=== PATIENT | male | born 1940 | race Caucasian/White ===

== ENCOUNTER 2022-03-13 16:35 | Emergency (ER) | payer MEDICARE, BC, SELFPAY ==
[2022-03-13 16:42] VITALS: BP 151/53; PULSE 61; RESP 18; TEMP 36.3; O2SAT 99; BMI 25.0
--- NOTE | 2022-03-13 16:53 | ED_ITS ---
HPI - General Adult General Time Seen by Provider: 16:53 Date Seen: 03/13/22 Chief complaint: Unspecified Complaint, Adult Stated complaint: Needs sodium level checked Time Seen by Provider: 03/13/22 16:36 Source: patient and RN notes reviewed Mode of arrival: ambulatory Limitations: no limitations History of Present Illness HPI narrative: Patient is an 81-year-old male accompanied by his daughter for concerns of hyponatremia, decreased fluid intake due to hyponatremia, inability to do his routine straight catheterization prior to coming, fall but a week ago and now with complaint of low back pain. This patient has had a recent complex history. 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 He was in the care home recuperating and then was discharged to home. He stays with his son but his son is gone right now will be out of town this next week. Per his daughter, he had hyponatremia complicating this postoperative time frame. While he was in the care home, she describes fluid restriction. He has been complaining of weakness, intermittent dizziness, did see Dr. Modi this last week. Dr. Modi reportedly called last night saying his sodium was low again in asked him to minimize fluid intake until it could be recheck tomorrow. With him a living by himself right now, his daughter was not comfortable with this plan, not comfortable with him fluid restricting and not drinking anything. There are no new falls. She notes he had some bruising on both sides of his back after the fall. He has not had any imaging in regards to the fall. He is complaining of right low back pain. There is no neurologic features with the fall, no pain shooting in the extremities. He states his left leg is feeling good after the bypass, wound healing up on the left arm as well. No fevers or chills. He did use 1 oxycodone yesterday. He has not been using chronic narcotics. He is on Plavix and a baby aspirin daily. Related Data Home Medications Medication Instructions Recorded Confirmed amiodarone 200 mg tablet mg 03/13/22 carvedilol 12.5 mg tablet mg 03/13/22 clonidine HCl 0.1 mg tablet mg 03/13/22 clopidogrel 75 mg tablet mg 03/13/22 gabapentin 300 mg capsule mg 03/13/22 pramipexole 0.5 mg tablet mg 03/13/22 tamsulosin 0.4 mg capsule mg PO 03/13/22 Allergies Allergy/AdvReac Type Severity Reaction Status Date / Time erythromycin base Allergy Verified 03/13/22 16:50 Penicillins Allergy Verified 03/13/22 16:50 Review of Systems Status of ROS: Reports: 10 or more systems reviewed and unremarkable except as noted in History and below Exam Const: Vital Signs, click to edit/add: Vital Signs - 24 hr 03/13/22 16:42 Temperature 97.3 F L Pulse Rate [Right Pulse Oximeter] 61 Respiratory Rate 18 Blood Pressure [Ri ght Upper Arm] 151/53 H Pulse Oximetry 99 Oxygen Delivery Me thod Room Air Documenting provider has reviewed patient's vital signs: yes Common normals: no apparent distress, oriented x3, no limitations, healthy appearing and alert General appearance: cooperative, comfortable, well kempt and frail appearing Nutritional appearance: thin HENMT: Common normals: normocephalic, head/scalp atraumatic, hearing grossly normal bilaterally (Does have bilateral hearing aids), external ears normal, external nose normal, nasal mucous membranes and turbinates normal, moist oral mucous membranes, oropharynx normal, dentition normal and gingiva normal Head and scalp: normocephalic and atraumatic Nose: external nose normal and nasal mucous membranes and turbinates normal External ear: external ears normal Eye: Common normals: PERRL, EOMs intact bilaterally, conjunctivae normal and no scleral icterus Conjunctiva: conjunctiva(e) normal Pupil: PERRL Neck & C-Spine: Common normals: full ROM, no lymphadenopathy, supple, no meningeal signs, no JVD and thyroid normal Thyroid: thyroid normal Chest: Common normals: inspection of chest normal and palpation of chest normal Resp: Common normals: normal respiratory effort, no retractions, no use of accessory muscles and clear to auscultation bilaterally Auscultation: clear to auscultation bilaterally Cardio: Common normals: no JVD, regular rate, regular rhythm, S1 normal heart sound, S2 normal heart sound, no gallops, no clicks and no murmurs Rate: regular rate Rhythm: regular rhythm Heart sounds: S1 normal and S2 normal GI: Common normals: Normal to inspection, nondistended, normoactive bowel sounds present, soft to palpation, non-tender, no hepatosplenomegaly and no masses Palpation: soft and no hepatosplenomegaly Back & Pelvis: Common normals: thoracic and lumbar spine normal to inspection and no thoracic nor lumbar tenderness Other: Is tender in the muscular area in the right low back. , no midline tenderness over the lumbar spine. Has ecchymosis that are old and resolving seen bilaterally near the edge of the iliac crest bilaterally on either side. Extremity: Common normals: no calf tenderness and no pedal edema Other: His harvest in bypass wounds on his left lower extremity and left upper extremity are well healed, no evidence of any infection. Neuro: Common normals: oriented x3 Sensorium/orientation: alert Meningeal signs: no meningeal signs Psych: Appearance: well kempt Course Course Hospital Course: We will x-ray lumbar spine, obtain blood work including chemistries was sodium. Will have nursing staff attempt straight cath. Reevaluation(s) Reevaluation #1: Reviewed that the sodium was 130, this is low but not at an alarming level. We will allow him to drink some Sprite. Reviewed with them that the x-rays of his lumbar spine are showing some degenerative changes but no fracture. We are still awaiting some labs and a everything is looking okay, likely discharge to home. Nursing staff was able to do a straight cath but he only had 35 mL. Patient is not drank anything all day so this is not surprising to me. Time: 18:19 Vital Signs Vital signs: Initial Vital Signs Temperature 97.3 F L 03/13/22 16:42 Temperature Source Temporal Artery Scan 03/13/22 16:42 Pulse Rate 61 03/13/22 16:42 Respiratory Rate 18 03/13/22 16:42 Blood Pressure 151/53 H 03/13/22 16:42 Blood Pressure Mean 85 03/13/22 16:42 Blood Pressure Position Sitting 03/13/22 16:42 Pulse Oximetry 99 03/13/22 16:42 Oxygen Delivery Method 03/13/22 16:42 Vital Signs Temperature 97.3 F L 03/13/22 16:42 Pulse Rate 61 03/13/22 16:42 Respiratory Rate 18 03/13/22 16:42 Blood Pressure 151/53 H 03/13/22 16:42 Pulse Oximetry 99 03/13/22 16:42 Oxygen Delivery Method 03/13/22 16:42 Temperature 97.3 F L 03/13/22 16:42 Pulse Rate 61 03/13/22 16:42 Respiratory Rate 18 03/13/22 16:42 Blood Pressure 151/53 H 03/13/22 16:42 Pulse Oximetry 99 03/13/22 16:42 Oxygen Delivery Method 03/13/22 16:42 Medical Decision Making Lab Data Lab results reviewed: Yes I reviewed the patient's lab results Lab results narrative: Was able to see his clinic labs and his sodium on March 10 was 125, has been running in the upper 120s most recently. In February his hemoglobin has been running 11.2-11.4, thus continuing to increase at 11.7 here. His white count was 4500 and 4800 on 2 separate occasions in February. Labs: Lab Results 03/13/22 03/13/22 03/13/22 Range/Units 17:32 17:32 17:50 WBC 4.24 L (4.50-11.00) K/uL RBC 3.86 L (4.30-5.90) m/uL Hgb 11.7 L (13.5-17.5) gm/dL Hct 35.3 L (37.0-53.0) % MCV 92 (80-100) fL MCH 30 (26-34) pg MCHC 33 (32-36) gm/dL RDW Coeff of Alba 13.2 (11.5-15.5) % Plt Count 162 (140-440) K/uL Neut % (Auto) 67.5 (42.0-72.0) % Lymph % (Auto) 13.9 L (20-44) % H[place] % (Auto) 9.7 (0.0-11.0) % Eos % (Auto) 7.8 H (0.0-7.0) % Baso % (Auto) 0.9 (0.0-3.0) % Neut # (Auto) 2.90 (1.7-7.0) K/uL Lymph # (Auto) 0.60 L (0.90-2.90) K/uL H[place] # (Auto) 0.40 (0.00-0.90) K/UL Eos # (Auto) 0.30 (0.00-0.50) K/uL Baso # (Auto) 0.00 (0.00-0.30) K/uL Abs Immat Gran (auto) 0.01 (0.00-0.30) K/uL Sodium 130 L (135-149) mmol/L Potassium 4.3 (3.6-5.1) mmol/L Chloride 94 L (96-114) mmol/L Carbon Dioxide 25 (20-32) mmol/L BUN 16 (7-30) mg/dL Creatinine 1.2 (0.5-1.5) mg/dL Estimated Creat Clear 44.31 Estimated GFR 61 ml/min Glucose 120 H (60-115) mg/dL Calcium 9.2 (8.4-10.6) mg/dL Urine Color Yellow (Yellow) Urine Appearance Cloudy A (Clear) Urine pH 6.0 (5.0-8.5) Ur Specific [place] 1.015 (1.000-1.030) Urine Protein Negative (Negative) Urine Glucose (UA) Negative (Negative) Urine Ketones Negative (Negative) Urine Blood 2+ A (Negative) Urine Nitrite Negative (Negative) Urine Bilirubin Negative (Negative) Urine Urobilinogen 1.0 (0.2-1.0) Ur Leukocyte Esterase Negative (Negative) Urine RBC 10-25 A (0-2) Urine WBC 10-25 A (0-5) Ur Squamous Epith Cells Few (None-Few) Urine Bacteria Few A (None) SARS-CoV-2 (PCR) (Negative) 03/13/22 Range/Units 18:00 WBC (4.50-11.00) K/uL RBC (4.30-5.90) m/uL Hgb (13.5-17.5) gm/dL Hct (37.0-53.0) % MCV (80-100) fL MCH (26-34) pg MCHC (32-36) gm/dL RDW Coeff of Alba (11.5-15.5) % Plt Count (140-440) K/uL Neut % (Auto) (42.0-72.0) % Lymph % (Auto) (20-44) % [place] % (Auto) (0.0-11.0) % Eos % (Auto) (0.0-7.0) % Baso % (Auto) (0.0-3.0) % Neut # (Auto) (1.7-7.0) K/uL Lymph # (Auto) (0.90-2.90) K/uL [place] # (Auto) (0.00-0.90) K/UL Eos # (Auto) (0.00-0.50) K/uL Baso # (Auto) (0.00-0.30) K/uL Abs Immat Gran (auto) (0.00-0.30) K/uL Sodium (135-149) mmol/L Potassium (3.6-5.1) mmol/L Chloride (96-114) mmol/L Carbon Dioxide (20-32) mmol/L BUN (7-30) mg/dL Creatinine (0.5-1.5) mg/dL Estimated Creat Clear Estimated GFR ml/min Glucose (60-115) mg/dL Calcium (8.4-10.6) mg/dL Urine Color (Yellow) Urine Appearance (Clear) Urine pH (5.0-8.5) Ur Specific [place] (1.000-1.030) Urine Protein (Negative) Urine Glucose (UA) (Negative) Urine Ketones (Negative) Urine Blood (Negative) Urine Nitrite (Negative) Urine Bilirubin (Negative) Urine Urobilinogen (0.2-1.0) Ur Leukocyte Esterase (Negative) Urine RBC (0-2) Urine WBC (0-5) Ur Squamous Epith Cells (None-Few) Urine Bacteria (None) SARS-CoV-2 (PCR) Negative SARS-CoV-2 (Negative) Imaging Data Lumbar spine x-ray: Attestation: I have reviewed the pertinent imaging results. Radiologist's impression: Patient: ALY COUGHLIN Facility:?[facility] Patient ID:?[id number] Site Patient ID:?[id number]. Site :?[id number] Study:?XRay Spine Lumbar -03/13/2022 5:24:27 PM Ordering Physician:Juan Russo Final Report: INDICATION: Fall. Low back pain. COMPARISON: 11/24/2020. TECHNIQUE: Lumbar spine 3 views. 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 Vertebral body heights are maintained. Alignment is unchanged. No acute fracture is identified. Cholecystectomy clips. Vascular stents. Left hip arthroplasty, partially imaged. Vascular calcifications are again noted. Dictated by Herrera Johnson MD @ 03/13/2022 6:01:29 PM (Electronic Signature) Critical Care Time Critical Care Time Critical Care Time: No Discharge Plan Discharge Clinical Impression: Low back pain, Hyponatremia Patient Disposition: Home, Self-Care Condition: Stable Instructions: Hyponatremia (ED), Back Pain (ED) Additional Instructions: Can baseline take Tylenol 1000 mg 3 times a day for pain control. Do recommend follow up in clinic with your primary care provider as soon as you can this week to discuss further management and treatment goals with the hyponatremia. At this time your sodium level is back up to 130 which is higher than it has been from the most recent labs I have seen. Your primary care provider can continue to follow this. Review low back pain at follow-up visit, see if your primary care provider has any further recommendations. Activity Level: Activity as Tolerated Prescriptions: No Action clonidine HCl 0.1 mg tablet carvedilol 12.5 mg tablet amiodarone 200 mg tablet clopidogrel 75 mg tablet pramipexole 0.5 mg tablet tamsulosin 0.4 mg capsule PO gabapentin 300 mg capsule Follow Up/Referrals: Monico Modi MD [Primary Care Provider] - Stand Alone Forms: [facility] Info Instructions
--- NOTE | 2022-03-13 17:07 | CRLHL7_ITS ---
For Patients: As a result of the Cures Act, medical imaging exams and procedure reports are released immediately into your electronic medical record. You may view this report before your referring provider. If you have questions, please contact your health care provider. INDICATION: Fall. Low back pain. COMPARISON: 11/24/2020. TECHNIQUE: Lumbar spine 3 views. 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 Vertebral body heights are maintained. Alignment is unchanged. No acute fracture is identified. Cholecystectomy clips. Vascular stents. Left hip arthroplasty, partially imaged. Vascular calcifications are again noted. Dictated by Herrera Johnson MD @ 03/13/2022 6:01:29 PM (Electronically Signed)
[2022-03-13 17:38] LABS: Basophils Percent Auto 0.9 % (0.0-3.0); Eosinophils Percent Auto 7.8 % (0.0-7.0); Hematocrit 35.3 % (37.0-53.0); Hemoglobin* 11.7 gm/dL (13.5-17.5); Immature Granulocytes Abs Auto 0.01 K/uL (0.00-0.30); Lymphocytes Percent Auto 13.9 % (20-44); Mean Corpuscular HGB Conc 33 gm/dL (32-36); Mean Corpuscular Hemoglobin 30 pg (26-34); Mean Corpuscular Volume 92 fL (80-100); Monocytes Percent Auto 9.7 % (0.0-11.0); Neutrophils Percent Auto 67.5 % (42.0-72.0); Platelet Count* 162 K/uL (140-440); RDW Coefficient of Variation % 13.2 % (11.5-15.5); Red Blood Count 3.86 m/uL (4.30-5.90); White Blood Count* 4.24 K/uL (4.50-11.00)
[2022-03-13 17:43] LABS: Slide Review Reflex No
[2022-03-13 17:55] LABS: Chloride* 94 mmol/L (96-114)
[2022-03-13 17:56] LABS: Potassium* 4.3 mmol/L (3.6-5.1); Sodium* 130 mmol/L (135-149)
[2022-03-13 17:58] LABS: Creatinine* 1.2 mg/dL (0.5-1.5); Est. Creatinine Clearance* 44.31; Estimated Glomerular Filt Rate 61 ml/min
[2022-03-13 17:59] LABS: Blood Urea Nitrogen* 16 mg/dL (7-30); Calcium* 9.2 mg/dL (8.4-10.6); Carbon Dioxide* 25 mmol/L (20-32); Glucose* 120 mg/dL (60-115)
[2022-03-13 18:34] LABS: Appearance Urine Cloudy (Clear); Bilirubin Urine Negative (Negative); Blood Urine 2+ (Negative); Color Urine Yellow (Yellow); Glucose Urine Negative (Negative); Ketones Urine Negative (Negative); Leukocyte Esterase Urine Negative (Negative); Nitrite Urine Negative (Negative); Protein Urine Negative (Negative); Specific Gravity Urine 1.015 (1.000-1.030)
--- OUTSIDE RECORDS SUMMARY | 2022-03-13 18:48 | XMS_ITS ---
:1940 Author Care Team Providers Name Role Phone CONNOR MIKE MD Primary Care Provider [phone] Allergies None recorded. Medications Name Status Start Date Stop Date ? ? coloplast ref 614 fr14 male Active ? Not available PERFORM SELF-CATHETERIZATION UP TO 5 TI MES A DAY NEEDED FOR URINARY RETENTION ketoconazole 2 % shampoo Active ? Not belkis ilable WASH TO AFFECTED AREA ON EAR AND CHEST 2-3 TIMES WEEKLY WEEKLY IN THE SHOWER LATHER AND LET SIT FOR SEVERAL MINUTES BEFORE RINSING nitrofurantoin monohydrate/macrocrystals 100 mg capsule Active ? Not available TAKE ONE CAPSULE BY MOUTH TWICE DAILY FOR 5 DAYS triamcinolone acetonide 0.1 % topical cream Active ? Not available WHEN ITCHY APPLY TO AFFECTED AREA ON EA RS AND CHEST 1-2X DAILY FOR 2 WEEKS AT A TIME REPEAT NEEDED FOR FLARES Problems None recorded. Procedures None recorded. Results Lab Results None recorded. Past Encounters 12/20/2021 Retention of Urine Sulaiman Romano MD: [address] [place] [phone], Ph. Social History None recorded. Vaccine List None recorded. Plan of Care Patient Instructions Needs to follow up with PF Reminders Provider Appointments None recorded. ? ? Lab None recorded. ? ? Referral None recorded. ? ? Procedures None recorded. ? ? Surgeries None recorded. ? ? Imaging None recorded. ? ? Vitals None recorded.
--- OUTSIDE RECORDS SUMMARY | 2022-03-13 18:48 | XMS_ITS | Clinical Summary ---
:1940 Author Organization [facility] [place] [address] Care Team Providers Name Role Phone Yong Siddiqi MD Unavailable FlygenDillan reid MD Unavailable Monico Modi MD Primary Care Provider [phone] [facility], [place] Unavailable [phone] Allergies Active Allergy Reactions Severity Noted Date Comments Citalopram Diarrhea 07/23/2013 Ciprofloxacin Rash 02/16/2015 Severe Hives Coenzyme Q10 Myalgia 11/27/2015 Rosuvastatin Rash 06/10/2012 Amitriptyline Confusion, Insomnia 02/17/2012 Erythromycin Edema, Hives High 11/01/2006 Hydrochlorothiazide Myalgia 09/14/2015 cramps f rom therapy. Lactose Stomach Upset 06/11/2012 Lactose intole rant Escitalopram Mental Status Change 11/12/2015 Feeling s of depression. Penicillins Hives High 11/01/2006 ##No similariti es in side chains, ve ry low to no risk of cross-sensitivi ty to ANCEF. [facility] Anti microbial Stewardship Tea m 03/2019 Sulindac Sedation 12/02/2010 Ezetimibe Nausea And Vomiting 09/09/2011 Medications Medication Sig Dispensed Refills Start End Status Date Date aspirin 81 mg Take 81 mg by 0 Ac tive tablet mouth once daily with a meal. Simethicone 125 mg Take 1 capsule 0 07/26/19 Active capsule by mouth 4 times 13 daily if needed for Flatulence. Max dose: 500 mg per [address] 1 Drop 0 A ctive (TIMOPTIC) 0.25 % into both eyes ophthalmic solution once daily. Magnesium 200 mg Take 400 mg by 0 Active tab mouth once daily in the evening. multivitamins-patents examiner Take 1 tablet by 0 Active als-lutein mouth once daily (MULTIVITAMIN 50 in the evening. PLUS) tab tablet acetaminophen Take 2 tablets 0 02/19/20 A ctive (TYLENOL) 325 mg by mouth every 4 20 tablet hours if needed. Max acetaminophen dose: 4000mg in 24 hrs. polyethylene glycoL Mix 1 scoop (17 1 jar 12 12/16/19 Active (MIRALAX) 17 g) in liquid 21 gram/dose then take by powderIndications: mouth 2 times Constipation, acute daily if needed for Constipation. atorvastatin Take 1 Tablet 90 Tablet 3 08/25/19 Act raj (LIPITOR) 80 mg (80 mg) by mouth 22 tabletIndications: at bedtime. Mixed hyperlipidemia omeprazole Take 1 Capsule 90 capsule. 3 08/25/19 Ac tive (PRILOSEC) 40 mg (40 mg) by mouth 22 Delayed-Release once daily capsuleIndications: before a meal. Gastroesophageal reflux disease, unspecified whether esophagitis present pramipexole Take 1 Tablet 90 Tablet 3 08/25/19 Acti ve (MIRAPEX) 0.5 mg (0.5 mg) by 22 tabletIndications: mouth at RLS (restless legs bedtime. syndrome) tamsulosin (FLOMAX) Take 1 Capsule 90 capsule. 3 08/25/19 Active 0.4 mg (0.4 mg) by 22 capsuleIndications: mouth once daily BPH with urinary after a meal. obstruction Catheter 16 Fr Perform 210 Each 5 08/25/19 Activ e miscIndications: self-catheteriza 22 Urinary retention tion up to 7 times a day as needed for urinary retention. Dispense: 614 Coude nitroglycerin DISSOLVE ONE 25 Tablet 1 10/24/19 Act raj (NITROSTAT) 0.4 mg TABLET UNDER 22 sublingual TONGUE EVERY 5 tabletIndications: MINUTES Chest pain, NEEDED FOR CHEST unspecified PAIN FOR UP TO 3 TIMES, IF NO RELIEF, CALL 911 medication order Take 2 Capsules 0 Active composer by mouth once daily. Fungus eliminator supplement amiodarone Take 1 Tablet 180 Tablet 3 01/08/20 Acti ve (CORDARONE) 200 mg (200 mg) by 22 tabletIndications: mouth in the PVC (premature morning and 1 ventricular Tablet (200 mg) contraction) in the evening. Take with food.. oxyCODONE-acetamino Take 1 Tablet by 10 Tablet 0 01/15/20 Active phen (Percocet) mouth every 4 22 5-325 mg per hours if needed tabletIndications: for Pain. Max Critical limb acetaminophen ischemia of left dose: 4000mg in lower extremity 24 hrs. (HC) cloNIDine HCL TAKE 1 TABLET BY 30 tablet. 0 03/10/20 Active (CATAPRES) 0.1 mg MOUTH NEEDED 22 tabletIndications: FOR BLOOD HTN (hypertension) PRESSURE GREATER THAN 170/90. MAY REPEAT IN 1 HOUR DIRECTED carvediloL (COREG) Take 0.5 Tablets 90 Tablet 3 03/10/20 Active 12.5 mg (6.25 mg) by 22 tabletIndications: mouth two times NSVT (nonsustained daily with ventricular meals. tachycardia), Essential hypertension clopidogreL Take 1 Tablet 90 Tablet 1 03/10/20 Acti ve (PLAVIX) 75 mg (75 mg) by mouth 22 tabletIndications: every morning. NSTEMI (non-ST elevated myocardial infarction) (HC), History of coronary angioplasty with insertion of stent cloNIDine HCL TAKE 1 TABLET BY 30 tablet 0 02/29/20 Discontinued (CATAPRES) 0.1 mg MOUTH NEEDED 20 022 (Reorder tabletIndications: FOR BLOOD ( E-cancel not HTN (hypertension) PRESSURE GREATER sent)) THAN 170/90. MAY REPEAT IN 1 HOUR DIRECTED clopidogreL TAKE ONE TABLET 90 Tablet 1 08/26/19 Di scontinued (PLAVIX) 75 mg BY MOUTH EVERY 022 (Reorder tabletIndications: MORNING ( E-cancel not NSTEMI (non-ST sent) ) elevated myocardial infarction) (HC), History of coronary angioplasty with insertion of stent carvediloL (COREG) Take 0.5 Tablets 180 Tablet 1 11/25/1911/04 Discontinued 12.5 mg (6.25 mg) by 022 (Reorde r tabletIndications: mouth in the (E-cancel not NSVT (nonsustained morning and 0.5 sent)) ventricular Tablets (6.25 tachycardia), mg) in the Essential evening. Take hypertension with meals. gabapentin Take 600 mg by 0 10/13/19 Disc ontinued (NEURONTIN) 300 mg mouth in the 22 022 (*Med capsule morning and 600 inef fective) mg in the evening. lisinopriL Take 5-10 mg by mouth once d aily if needed (high blood pressure). SBP 114 or below: no dose 0 Discon tinued (PRINIVIL; ZESTRIL) 115-135: 5 mg 022 (*Discontinued 10 mg tablet 136+: 10 mg by an other clinician) Active Problems Patient Care Coordination Note Formatting of this note might be differe nt from the original. HF/Structural/Prevention Research González kelly Review Date: 06/26/19 Upcoming Visit Location: [facility] Age: 79 y.o. Medicare/Medicaid EF: 50 Valve/Imaging: mild AR, mild TR, trace M R Comments: HF: DNQ Structural: No significant valve disease Prevention: DNQ Problem Noted Date GERD (gastroesophageal reflux disease) 01/11/2022 Status post placement of cardiac pacemaker 02/25/2020 Hypertension 02/25/2020 AV block, 2nd degree 02/19/2020 Overview: status post PPM 02/18/2020 Peripheral artery disease 06/30/2019 Overview: s/p Left femoral endarterectomy, R SFA s tent 11-23-11, s/p Right femoral endarterectomy, right external iliac stent Left SFA stent 05-24-2012 NSTEMI (non-ST elevated myocardial infarction) 020 Prediabetes 11/27/2017 Labile blood pressure 03/09/2017 BPH (benign prostatic hypertrophy) with urinary retent ion 09/14/2015 Pulmonary nodule 06/13/2012 Overview: Found on CTA June 2012- consider foll ow up CT chest no contrast in 6 months. GERD (gastroesophageal reflux disease) 06/11/2012 ACP (advance care planning) 05/27/2012 Overview: Formatting of this note is dif ferent from the original. Patient has identified Health Care Agent (s): Yes Add Health Care Agents: Yes Health Care Agent(s): Primary Health Care Agent: Bailey Wood ionship: daughter Secondary Health Care Agent: Donnell p: Phone: Conservator: Relationship: Phone: Guardian: Relationship: Phone: Patient has Advance Care Plan Documents (Health Care Directive, POLST): Yes Advance Care Plan Documents: Health Care Directive Patient has identified Specific Treatmen t Preferences: Yes Specific Treatment Preferences: a.) Code Status: CPR/Attempt Resuscitation Neuralgia 12/13/2011 CAD (coronary artery disease) 10/04/2011 Overview: - Hx of CABG 1996: REYNA - mLAD, SVG - OM 1, SVG - RPDA - prior stent work - 06/12/12 Angio: Successful 2mm x 12mm Ba lloon and 2.5mm x 12mm Balloon to Aorta graft to 1st Marginal, post stenosis 20%. Unable to stent due to the 180 degree bend in the vein graft prior to the lesion. * REYNA - mLAD patent; SVG - RPDA occlud ed - 09/28/16 MPI: * There is a small to medium sized area of mild ischemia in the mid and apical lateral wall. This appears to be new compared to the 04/22/2010 study. * There is a medium sized inferior infa rction with mild heydi-infarction ischemia. This is probably not significantly changed from the 04/22/2010 study. - angiogram 12/01/16: Lactose intolerance 09/16/2011 Mixed hyperlipidemia 08/11/2011 Carotid artery stenosis 05/31/2011 CKD (chronic kidney disease) stage 3, GFR 30-59 ml/min 05/20/2011 Colon polyp 09/09/2010 Overview: Colonoscopy 09/2010 polyp, incomplete mracy dy, recommend barium enema- diverticuli, recommend BE in 5 years Anxiety state, unspecified 06/10/2010 RLS (restless legs syndrome) 10/28/2008 Vesicoureteral reflux, unspecified or without reflux n ephropathy Overview: Formatting of this note is dif ferent from the original. He voids every 2-4 hours during the day and??caths at??night. He self-caths??2-4x/day and 3x/night. Stenosis of right carotid artery without cerebral infa rction Critical limb ischemia of left lower extremity Anemia Resolved Problems Problem Noted Date Resolved Date Cramps, muscle, general 11/28/2018 08/19/2020 Chest pain, unspecified 06/11/2012 11/08/2016 Hemoptysis 05/27/2012 06/25/2012 Overview: CT chest with contrast on 05/30 ~4 cm ar e of infiltrate/inflammation in the LLL. Small cavity component may be present within this infiltrate. Rest of lungs are clear. No PE Testalgia 05/26/2012 03/14/2014 Biceps rupture, proximal 05/22/2012 08/24/2021 Overview: On both sides, left greater than right. Other secondary hypertension 12/13/2011 02/25/2020 Leg cramps 09/02/2011 12/13/2011 Cramp of both lower extremities 07/28/2011 08/25/19 22 Neck pain 11/05/2010 05/24/2012 Chest pain 09/10/2010 05/24/2012 URI (upper respiratory infection) 07/12/20102010 ARTERIOSCLEROTIC HEART DISEASE 03/30/2010 0 supervisor intermediates (current) use of anticoagulants 09/15/2009 03/08/2011 Overview: INR Goal Range: 1.5 - 20 Diarrhea 02/17/2009 03/08/2011 Overview: -with Pletal PVD (peripheral vascular disease) 11/26/20082010 PAD (Peripheral Artery Disease) with claudication--s/p L nati ac 10/28/2008 12/13/2011 stent 98;VP & GENERAL COUNSEL L popliteal 02-17-09 Overview: S/p Left common femoral endarterectomy a nd R SFA stent (11/23/2011) Other dyspnea and respiratory abnormality 03/17/2008 03/08/2011 Dizziness and giddiness 01/22/2008 08/24/2021 Shortness of breath 01/22/2008 03/08/2011 Esophageal reflux 07/10/2007 07/26/2012 Overview: EGD 06/2009 benign gastric polyps EGD 06/2013 benign gastric polyps Cor Athrscl-Uns Vessel 10/04/2011 Overview: -prior [place]'s in 1995, 2000 -CABG 1995 -Multiple PCI with 8 stents, last 03/12 -Myoview in 08/11 with fixed inferior def ect, minimal heydi-infarct ischemia, LVEF 60% Pure hypercholesterolemia 03/08/2011 Unspecified Essential Hypertension 12/12 Other and Unspecified Hyperlipidemia Encounters Date Type Specialty Care Team Description 03/12/2022 Telephone Monico Modi MD 03/11/2022 Home Care Visit Vasu Aden ME VISIT Leland, RN 03/11/2022 Telephone Monico Modi Home Care ( verbal) MD Roxane 03/10/2022 Office Visit Monico Modi Follow Up ( Blood MD Roxane pressure, leonora r monitor, bypass surgery in January) 03/10/2022 Home Care Visit Luh Haro ME VISIT J 03/10/2022 Nurse/Clinic Staff Device Ch lakshmi (4 HOUR Only EPATCH DOWNLOAD ) 03/10/2022 Travel 03/09/2022 Home Care Visit Vasu Aden CARE CO ORDINATION Leland, RN 03/08/2022 Procedure Only Device Check (24 HOUR EPATCH PLACEMEN T ) 03/08/2022 Travel 03/07/2022 Home Care Visit Luh Haro - HO ME VISIT J 03/03/2022 Home Care Visit Luh Haro - [place] SSED VISIT J 03/02/2022 Home Care Visit Vasu Aden VISIT D, RN 02/28/2022 Home Care Visit Luh HaroA - HO ME VISIT J 02/25/2022 Home Care Visit Luh Haro HO [place] VISIT J 02/24/2022 Office Visit [facility] Zen Wright (Surveillance john Aguilar MD peripheral vasc ular disease) 02/24/2022 Hospital Encounter Korey Elias, Heydi pheral artery disease (HC); PA Critical limb ischemia of left lower ext remity (HC) Ethan Granado R.T. (ARRT) 02/24/2022 Travel 02/23/2022 Home Care Visit Vasu Aden SN - OA SIS DAIANA, RN CARE 02/23/2022 Telephone Monico Modi Home Care ( verbal MD Roxane orders) 02/22/2022 Telephone Odalis Krause RN Home Care 02/17/2022 Lab Requisition Gustavo, Izzy Vee, CARPET BINDER 02/15/2022 Transcribe Orders Tonya Fernandez MD 02/14/2022 Telephone Monico Modi Questions MD Roxane 02/14/2022 Telephone Dudley Toro MD Concerns 02/14/2022 Telephone Monico Modi Need Meds ( Low blood MD Roxane pressure ) 02/08/2022 Lab Requisition Gustavo, Izzy Vee, CARPET BINDER 02/03/2022 Lab Requisition Gustavo, Izzy Vee, CARPET BINDER 01/31/2022 Lab Requisition Gustavo, Izzy Vee, CARPET BINDER 01/18/2022 Emergency Maykel Sutton Dizziness (P rimary Dx); MD Michael Left leg pain; Postoperative a nemia; Hyponatremia 01/18/2022 Travel 01/11/2022 Anesthesia Event Luisa Tavarez, OLGA LIDIA 01/11/2022 Surgery Dudley Toro MD LEFT FEMORA L POPLITEAL BYPASS WITH LEF T ARM CEPHALIC VEIN H ARVEST 01/11/2022 - Hospital Encounter Dudley Toro MD Criti dilcia limb ischemia 01/14/2022 of left lower e xtremity (HC) Discharge Summary - Ruth Elias PA - 01/14/2022 12:49 PM CDT HOSPITAL DISCHARGE SUMMARY Patient Name: Anish Coughlin Date of : 1940 Ag e: 81 y.o. [address] Primary Physician: Monico Modi MD Admission Date: 01/11/2022 Discharge Date: 01/14/2022 He will be discharged from [facility] to transitional care [facility]. PRINCIPAL DIAGNOSIS CAUSING ADMISSION: Rest pain of the left lower extremity PROBLEM LIST: Principal Problem: Critical limb ischemia of l eft lower extremity (HC) Active Problems: RLS (restless legs syndrome ) CKD (chronic kidney disease ) stage 3, GFR 30-59 ml/min (HC) Mixed hyperlipidemia CAD (coronary artery diseas e) Neuralgia BPH (benign prostatic hyper trophy) with urinary retention Labile blood pressure Prediabetes Peripheral artery disease ( HC) AV block, 2nd degree Hypertension GERD (gastroesophageal refl ux disease) Anemia BRIEF HOSPITAL COURSE: This 81 y.o. male with history of peripheral arterial disease, CAD, HTN, HLD, prediabetes, stage III CKD, neuropathy, GERD, RLS, BPH (self caths at baseline), history of TIA (h/o R CEA). He has had 2 attempt s at recanalization of his distal SFA/pop occlusion endovascularly in both of proved unsuccessful. He underwent left femoral to PT bypass with reversed cephalic vein on [address] Toro. Postoperati vely pt was transferred to inpatient floor in stable condition. On POD1 pt required 2 units PRBCs for Hgb drop 8.5 --> 6.7 postoperatively. Hgb improved to 9.5 after trans fusion. His Hgb was 8.3 on t he day of the discharge. Hospitalist followed for oth er medical management. There was no change in his medication. He will continue with Aspirin 81 mg daily. He also has history of PVD with hx of right SFA stent 08/18/2017 and L iliac stent 1998. We will c ontinue his Plavix 75 mg daily. He is ready for discharge on postoperative day 3. He is ambulating with one assist, voiding, and tolerating a solid diet. FOLLOW-UP: He should see Aron Modi MD in 1 week. Follow up in 4-6 weeks with US duplex and JORGE. EXAM: BP 142/59 (Cuff Size: Adult Regular) Pulse 72 Temp 97.9 ??F (36.6 ??C) Resp 15 Ht 1.676 m (5' 6) Wt 75 kg (165 lb 6.4 oz) SpO2 96% BMI 26.70 kg/m?? GEN: NAD, in bed RESPIRATORY: Non-labored res pirations CARDIOVASCULAR: Regular rate and rhythm ABDOMEN: Soft, non-tender NEUROLOGIC: Grossly non-foca l Diminished sensation in feet bilaterally. EXT: Left groin soft, incisi on intact with Dermabond, minimal tenderness with palpation. Left medial lower leg incisi on c/d/i with a small area of ecchymosis, No surrounding erythema and no incisional necrosis or ischemia, calf compartments soft but tender with palpation near the incision. Left foot warm with good cap illary refill, strong multiphasic left PT signal Left arm, soft with reducing edema, intact incisions with surrounding ecchymosis and darkening along incision line. No hematoma present. Palpable left radial pulse 2 + DISCHARGE MEDICATIONS Your Home Medicines CONTINUE taking these medici sherrell Instructions acetaminophen 325 mg tablet Commonly known as: TYLENOL Take 2 tablets by mouth raisa ry 4 hours if needed. Max acetaminophen dose: 4000mg in 24 hrs. amiodarone 200 mg tablet For diagnoses: PVC (prematur e ventricular contraction) Commonly known as: CORDARONE Take 1 Tablet (200 mg) by m outh in the morning and 1 Tablet (200 mg) in the evening. Take with food.. aspirin 81 mg tablet Take 81 mg by mouth once da susan with a meal. atorvastatin 80 mg tablet For diagnoses: Mixed hyperli pidemia Commonly known as: LIPITOR Take 1 Tablet (80 mg) by mo uth at bedtime. carvediloL 12.5 mg tablet For diagnoses: NSVT (nonsust ained ventricular tachycardia) (HC), Essential hypertension Commonly known as: COREG Take 0.5 Tablets (6.25 mg) by mouth in the morning and 0.5 Tablets (6.25 mg) in the evening. Take with meals. Doctor's comments: Dose decr eased on 01/2021. Due for Cardiology follow up Catheter 16 Fr Misc For diagnoses: Urinary reten tion Perform self-catheterizatio n up to 7 times a day as needed for urinary retention. Dispense: 614 Coude cloNIDine HCL 0.1 mg tablet For diagnoses: HTN (hyperten annie) Commonly known as: CATAPRES TAKE 1 TABLET BY MOUTH N EEDED FOR BLOOD PRESSURE GREATER THAN 170/90. MAY REPEAT IN 1 HOUR DIRECTED clopidogreL 75 mg tablet For diagnoses: NSTEMI (non-S T elevated myocardial infarction) (HC), History of coronary angioplasty with insertion of stent Commonly known as: PLAVIX TAKE ONE TABLET BY MOUTH EV JANIA MORNING gabapentin 300 mg capsule Commonly known as: NEURONTIN Take 600 mg by mouth in the morning and 600 mg in the evening. lisinopriL 10 mg tablet Commonly known as: PRINIVIL; ZESTRIL Take 5-10 mg by mouth once daily if needed (high blood pressure). SBP 114 or below: no dose 115-135: 5 mg 136+: 10 mg Magnesium 200 mg Tab Take 400 mg by mouth once d aily in the evening. medication order composer Take 2 Capsules by mouth on ce daily. Fungus eliminator supplement Multivitamin 50 Plus Tab tab let Generic drug: multivitamins- minerals-lutein Take 1 tablet by mouth once daily in the evening. nitroglycerin 0.4 mg subling ual tablet For diagnoses: Chest pain, u nspecified Commonly known as: NITROSTAT DISSOLVE ONE TABLET UNDER T ONGUE EVERY 5 MINUTES NEEDED FOR CHEST PAIN FOR UP TO 3 TIMES, IF NO RELIEF, CALL 911 omeprazole 40 mg Delayed-Rel ease capsule For diagnoses: Gastroesophag eal reflux disease, unspecified whether esophagitis present Commonly known as: PRILOSEC Take 1 Capsule (40 mg) by m outh once daily before a meal. oxyCODONE-acetaminophen 5-32 5 mg per tablet For diagnoses: Critical limb ischemia of left lower extremity (HC) Commonly known as: Percocet Take 1 Tablet by mouth ever y 4 hours if needed for Pain. Max acetaminophen dose: 4000mg in 24 hrs. polyethylene glycoL 17 gram/ dose powder For diagnoses: Constipation, acute Commonly known as: MIRALAX Mix 1 scoop (17 g) in liqui d then take by mouth 2 times daily if needed for Constipation. pramipexole 0.5 mg tablet For diagnoses: RLS (restless legs syndrome) Commonly known as: MIRAPEX Take 1 Tablet (0.5 mg) by m outh at bedtime. Simethicone 125 mg capsule Take 1 capsule by mouth 4 t imes daily if needed for Flatulence. Max dose: 500 mg per 24 hrs tamsulosin 0.4 mg capsule For diagnoses: BPH with urin angel obstruction Commonly known as: FLOMAX Take 1 Capsule (0.4 mg) by mouth once daily after a meal. timoloL maleate 0.25 % ophth almic solution Commonly known as: TIMOPTIC Place 1 Drop into both eyes once daily. Where to get your medicines You have received printed pr escription(s) for these medicines or supplies. Take these to your preferred pharmacy. Bring a paper prescription f or each of these medications ?? oxyCODONE-acetaminophen 5 -325 mg per tablet PROCEDURES PERFORMED DURING HOSPITALIZATION: Procedure(s): 01/11/22, Dr. Toro #1 redo left femoral exposur e with focal endarterectomy #2 left cephalic vein harves t from the wrist to the axilla #3 left femoral to PT bypass with reversed cephalic vein COMPLICATIONS IN HOSPITAL: N one IMPORTANT PENDING TEST RESUL TS: None PERTINENT FINDINGS/RESULTS A T DISCHARGE: Recent Labs 01/14/22 0825 01/13/22 0905 WBC 6.2 6.3 RBC 2.59 L 2.57 L HGB 8.3 L 8.1 L HCT 23.2 L 23.0 L MCV 90 90 MCH 32.0 31.5 MCHC 35.8 35.2 PLT 118 L 107 L MPV 9.5 9.8 Recent Labs 01/14/22 0825 01/13/22 0905 SODIUM 130 L 127 L POTASSIUM 4.4 4.5 CHLORIDE 96 L 94 L [id number] 26 24 BUN 10 14 CREATININE 0.92 1.02 GLUCOSE 97 101 H CALCIUM 8.2 L 8.2 L No results for input(s): AL KPHOSPH, PROTEIN, BILITOTAL, AST, ALT in the last 720 hours. After Discharge Orders and I nstructions Admission H&P Valid: Yes After Hospital Follow Up Ap pointment(s) We have arranged follow up with Dr. Zen Morales with US imaging of your lower extremities at the [facility], 2nd Floor. Located at [address], [place] [address]., o n 02/24/2022. Please see the After Visit Summary for additional information. Please arrive 15 minutes early. [facility] at [phone] to reschedule as needed or for further directions. When to follow up: 4 to 6 w eeks When is patient being disch arged?: Other/Unknown Agency Standing Orders: Yes All Orders Valid For 45 Day s Unless Otherwise Indicated Allergies: -- Erythromycin -- Edema an d Hives -- Penicillins -- Hives -- ##No similarities in lily e chains, very low to no risk of cross-sensitivity t o DEMARCUSEF. [facility] Antimicrobial Stewardship T magy 03/2019 -- Celexa [Citalopram] -- D iarrhea -- Ciprofloxacin -- Rash -- Severe Hives -- Co Q10 [Coenzyme Q10] -- Myalgia -- Crestor [Rosuvastatin] - - Rash -- Elavil [Amitriptyline] - - Confusion and Insomnia -- Hctz [Hydrochlorothiazid e] -- Myalgia -- cramps from therapy. -- Lactose -- Stomach Upset -- Lactose intolerant -- Lexapro [Escitalopram] - - Mental Status Change -- Feelings of depression. -- Sulindac -- Sedation -- Zetia [Ezetimibe] -- Jakob sea And Vomiting CARDIAC WITH MODIFIERS DIET -Caffeine Allowed Caring for your wound or in cision: Your wound or incision is l ocated on your left groin, left leg and left arm. Daily incision care: Clean w ith mild soap and water, dry well. No dressing needed. Do not soak incisions, take a bath, or go swimming. Do not use lotions or ointments on incision until incision has comp letely healed. Inspect wound s daily and report any new redness, drainage, or wound tenderness to the surgeon's office at [phone]. Discharge Summary: Enclosed Free of Communicable Diseas e: Yes Give 2-Step Mantoux: Yes, U nless Current or Contraindicated Level of Care: Skilled Moving around after your ho spital visit: Limit lifting to amounts th at don't aggravate your incisional pain (usually less than 10-15 lbs) for 2 weeks. You may walk stairs. Don't sit with your feet down for prolonged periods. You may shower wi th the wound open to the [facility] er. Don't drive until you are safe and comfortable behind the wheel and not taking sedating pain medications. Try to take several short walks daily. NURSING COMMUNICATION OK for patient to self-cath bladder 6-8 times per day as he does at home. Patient will let you know when he needs to self-cath. Patient Aware of Diagnosis: Yes Patient may leave SNF super vised with medications Primary Care Provider arturo puente up appointment(s) Monico Modi MD When to follow up: 1 to 5 d ays Treatment - Occupational Th erapy Eval and Treat Treatment - Physical Therap y Eval and Treat Treatment Options: Full Res uscitation Vital Signs per facility ro utine Weight per facility routine Weigh on admission to skill ed nursing facility What you may eat and drink after your hospital stay: YOUR RECOMMENDED SELECTION FOR MEALS ARE: HEART HEALTHY DIET: Make food choices that are c onsidered heart healthy. Eat more fresh fruits and ve getables: - Aim for two or more jarrett gs of fruit each day. - Eat three or more servings of vegetables each day. Eat whole grains. Limit sodium (salt): - Do not add extra salt at t he table. - Omit or reduce salt in el ing and cooking. - Eat more foods you make at home. Eat more chicken, fish, and lean pork. Eat less red meat. Bake, grill, or broil meats. Limit fried foods. Eat two to three servings of low-fat or fat-free dairy foods each day. Use these sparingly: vegetab le oil; spray, tub or squeeze margarine, low or non-fat salad dressing sparingly. Read labels to avoid trans-f ats. When should you be concerne d? At the custodial [facility] let your health care providers know if you notice any changes in your condition. Call Dr. Dudley Toro at [phone] if you have any questions or concerns regarding your incision or other matters including: --If you have a fever higher than 101.0, increasing pain or redness or drainage from your incision. --If you had leg surgery & y ou think there are new problems or changes in the circulation. Who can the receiving facil ity call with order questions? If any questions arise with in the first 24 hours after discharge contact our service at [phone] Why were you at the [facility]? You were in the hospital fo r critical limb ischemia status post left femoral to posterior tibial bypass with cephalic vein. Wound or incision care: Wound care instructions for the custodial facility: ?? WOUND CARE MANAGEMENT CONTIN UOUS Comments: Left arm: Wrap wit h DUARTE bandage from left arm to left arm pit. May use dry gauze over incision line if scant drainage. Inspect every shift. Change dressing daily. ?? Left groin: Apply dry gauze if needed for scat drainage, otherwise may leave uncovered. Inspect every shift. Interdry in between groin folds. ?? Left medial lower leg incisi on: May use dry gauze over incision line if scant drainage. Wrap with DUARTE from left foot to left groin. Inspect incision every shift. CONDITION AT DISCHARGE: Impr oving Thank you for asking us to p articipate in the vascular care of Anish Coughlin. Please don't hesitate to call [phone] if you have any questions. Korey Elias PA-C / Dr. Toro Section of Vascular and Endo vascular Surgery Hyperbaric Medicine [facility]– [place] @ [facility] Total time spent for dischar ge on date of discharge: >45 minutes for patient education and coordination of care. The primary provider will au tomatically receive a copy of this summary. 01/11/2022 Travel 01/07/2022 Office Visit Dudley Toro MD 01/07/2022 Hospital Encounter David Giron MD 01/07/2022 Office Visit Chaz Olivo office visi t (PER MD ANSELMO Chris/RAMÍREZ? /N EXT AVAILABLE APT - HAVING PV C'S. TO HAVE EKG 8.2 & ? WEA R HOLTER) 01/07/2022 Telephone Monico Modi Questions ( Disability MD Roxane Parking Pass) 01/07/2022 Telephone Dudley Toro MD Surgery Pamela eduled 01/06/2022 Nurse/Clinic Staff Only Vaishali ce Check (24 HOUR EPATCH DOWNLOAD ) 01/06/2022 Travel 01/05/2022 Orders Only David Giron, <No sc ans attached> 01/04/2022 Nurse/Clinic Staff Only Card iovascular Diagnostic Testing (EKG PE R DR. GIRON ) 01/04/2022 Nurse/Clinic Staff Only Vaishali ce Check (24 HOUR EPATCH SET UP) 01/04/2022 Travel 01/03/2022 Telephone Monico Modi MD 01/03/2022 Telephone David Giron, Cardio vascular Diagnostic MD Testing (Needs EKG and holter 24 hours .) 12/31/2021 Hospital Encounter GironTimmy H, Perip eral artery disease (HC); [facility] Health PAD (periphera l artery disease) (HC) 12/31/2021 Office Visit Dudley Toro MD CV Vascular Est (Surveillance o f PAD) 12/31/2021 Travel 12/22/[address] [facility] F/ U (Roxane CHENG MD angiogram, 12/15) 12/22/2021 Travel 12/19/2021 Telephone Bryn Rodgers, RN Device Check (Pulse is reading low on BP monitor) 12/15/2021 Hospital Encounter Dudley Toro MD Criti dilcia limb ischemia of left lower extr emity (HC) 12/15/2021 Orders Only [place] <No scans attached> RAMAKRISHNA Interiano 12/15/2021 Travel from Last 3 Months Immunizations Name Administration Dates Next Due AMB Influenza, IIV3 (Age >=3 02/28/2013 years)(Flu Clinic Only) COVID-19 vaccine (Moderna 07/30/2020 100mcg/0.5mL) PF, MDV COVID-19 vaccine ([place] [employer] 12/10/2021, 07/14/2021 30mcg/0.3mL) 12YO+ REYNA-SUCROSE PF, MDV Influenza A (H1N1), Inactivated 06/09/2009 Influenza A (H1N1), Inactivated (Age 0106/09/2009 >=3 Years) Influenza, High-dose Inactivated 03/31/2016, 02/16/2015 Influenza, IIV3 (Age 6-35 mos) 03/08/2011, 02/11/2010 Influenza, IIV3 (Age >=3 years) 02/28/2013, 02/17/2012, 09/2010, 02/11/2010, 02/10/2009, 04/01/2008, 04/19/2007, 04/04/2006, 04/25/2005, 04/05/2004, 04/01/2003 Influenza, IIV4 02/19/2014 Influenza, Inactivated AIIV4 (Age 65+ 03/10/2022, 03/11/2021 , 02/25/2020 Years) Preserv Free Influenza, Inactivated IIV3 (Age 65+ 05/06/2019, 02/06/2018, 03/09/2017 Years) Preserv Free Pneumococcal Poly,23-Valent 04/04/2006, 10/02/1995 (Pneumovax) Pneumococcal conj 13-Valent (Prevnar 07/07/2014 13) Pneumococcal, Unspecified 05/05/2011 Td (Age >=7 Years) 04/26/2006, 10/02/1995 Td, Preservative Free (age >= 7 04/26/2006 Years) Tdap 07/07/2014 Zoster (Shingrix-RZV, recombinant) 04/14/2018, 12/18/2017 Zoster (Zostavax-ZVL, live) 04/24/2007 Family History Medical History Relation Name Comments Heart Disease Brother 1 #2 ICD Good Health Brother 2 #1 Good Health Brother 3 #3 Other Sister ?TB of cheek at age 5 Anesthesia Problem No Family History Relation Name Status Comments Brother 1 #2 Brother 2 #1 Brother 3 #3 Father (Age 73) CAD, cirrhosis , tobacco/Etoh Mother (Age 83) CAD Sister Social History Tobacco Use Types Packs/Day Years Used Date Former Smoker Cigarettes 2 30 Quit: 06/05/18 89 Smokeless Tobacco: Never Used Tobacco Cessation: Counseling Given: Yes Alcohol Use Standard Drinks/Week Comments No 0 (1 standard drink = 0.6 oz pure alcoho l) Sex Assigned at Date Recorded Not on file COVID-19 Exposure Response Date Recorded In the last 10 days, have you been in contact with No / Unsu re 03/10/2022 1:07 PM CDT someone who was confirmed or suspected to have Coronavirus/COVID-19? Obstetrics History Last Filed Vital Signs Vital Sign Reading Time Taken Comments Blood Pressure 100/54 03/11/2022 12:17 PM CDT Pulse 60 03/11/2022 12:17 PM CDT Temperature 36.7 ??C (98.1 ??F) 03/11/2022 12:17 PM CDT Respiratory Rate 18 03/11/2022 12:17 PM CDT Oxygen Saturation 99% 03/11/2022 12:17 PM CDT Inhaled Oxygen Concentration - - Weight 73.4 kg (161 lb 12.8 oz) 03/10/2022 1:19 PM CDT Height 167.6 cm (5' 6) 02/23/2022 9:49 AM CDT Body Mass Index 26.12 02/23/2022 9:49 AM CDT Plan of Treatment Upcoming Encounters Date Type Specialty Care Team Description 03/17/2022 Home Care Visit Luh Haro [address] [place], [place] [address] (Wo rk) 03/17/2022 Home Care Visit Sky Aden, RN [address] [place], [place] [address] (Wo rk) 03/21/2022 Office Visit Monico Modi MD [address] [place], [place] [address] (Wo rk) 05/06/2022 [facility] [place] [facility]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 05/23/2022 Orders Only 07/07/2022 Cardiac Device Check 07/07/2022 Office Visit Chaz Olivo MD [address] [place], [place] [id number] (Wo rk) Health Maintenance Due Date Last Done Comments COVID-19 vaccine series (5 - 02/04/2022 12/10/2021, 022, Booster for Moderna series) 08/27/2020, Addition al history exists Medicare Wellness for age 65+ 08/24/2022 08/24/2021, 2020, 06/20/2019, Additional history exists Depression screening for age 12+ 08/25/2022 08/25/2021, , 08/20/2020, Additional history exists BMI (ht and wt on same day) for 01/07/2023 01/07/2022, 07/0 01/2022, age 18+ 08/24/2021, Additional history exists Tetanus booster 07/07/2024 07/07/2014, 04/26/2006, 04/26/2006, Additional history exists Pneumococcal series for age 65+ Completed 07/07/2014, 12/0 06/2010, 04/04/2006, Additional history exists Tdap Completed 07/07/2014 Zoster (shingles) series for age Completed 04/14/2018, , 50+ 04/24/2007 Influenza for age 65+ Completed 03/10/2022, 03/11/2021, 02/25/2020, Additional history exists Goals Goal Patient Goal Associated Recent Patient-Stated? Author Type Problems Progress BLOOD PRESSURE Blood Pressure No Loan s, - MAINTAINS BP Alpesh less than MD Shant 140/90 Medical Devices Implanted Type Area Dump Motor Operator Device Shelf Model / Identifier Expiration Serial / Date Lot Patch Vasc 0.8x8cm Biological Peripatch - [id number] Left: Lemaitre 03/24/2014 0.8P8# / Implanted: Qty: 1 on 11/23/2011 by Annemarie King MD at [facility] [employer] / Artery [id number]-Guard [id number] - [id number] Right: B[employer] 11/25/2015 [id number] / Implanted: Qty: 1 on 05/24/2012 by Annemarie King MD at [facility] Femoral / Artery [id number] Patch Vasc 0.8x8cm Xenosure Biological Pericardial - [id number] Right: Lemaitre 03/02/2022 0.8P8# / Implanted: Qty: 1 on 08/12/2016 by Zen Ly MD at [facility] [employer] / Artery [id number] Procedures Procedure Name Priority Date/Time Associated Diagnosis Comme nts HOLTER MONITOR Routine 03/11/2022 12:00 PVC (premature AM CDT ventricular contraction) BASIC METABOLIC PANEL Routine 03/10/2022 2:18 Hyponatremia Res ults for this PM CDT procedure are i n the results section. US ANKLE BRACHIAL Routine 02/24/2022 2:37 Peripheral artery Re sults for this INDEX BILATERAL PM CDT disease (HC) procedure are in Critical limb the results ischemia of left section. lower extremity (HC) US ARTERIAL LOWER Routine 02/24/2022 2:37 Peripheral artery Re sults for this EXTREMITY BILATERAL PM CDT disease (HC) procedure are in Critical limb the results ischemia of left section. lower extremity (HC) BASIC METABOLIC PANEL Routine 02/18/2022 6:40 Res ults for this AM CDT procedure are i n the results section. CBC WITH AUTO Routine 02/09/2022 6:30 Results for this DIFFERENTIAL AM CDT procedure are i n the results section. BASIC METABOLIC PANEL Routine 02/09/2022 6:30 Res ults for this AM CDT procedure are i n the results section. CBC WITH AUTO Routine 02/09/2022 6:30 Results for this DIFFERENTIAL AM CDT procedure are i n the results section. CBC WITH AUTO Routine 02/04/2022 6:34 Results for this DIFFERENTIAL AM CDT procedure are i n the results section. BASIC METABOLIC PANEL Routine 02/04/2022 6:34 Res ults for this AM CDT procedure are i n the results section. CBC WITH AUTO Routine 02/04/2022 6:34 Results for this DIFFERENTIAL AM CDT procedure are i n the results section. CBC WITH AUTO Routine 02/01/2022 7:12 Results for this DIFFERENTIAL AM CDT procedure are i n the results section. BASIC METABOLIC PANEL Routine 02/01/2022 7:12 Res ults for this AM CDT procedure are i n the results section. CBC WITH AUTO Routine 02/01/2022 7:12 Results for this DIFFERENTIAL AM CDT procedure are i n the results section. TYPE & SCREEN STAT 01/18/2022 2:44 Results for this PM CDT procedure are i n the results section. RED CELL MORPHOLOGY SEGUNDO 01/18/2022 2:44 Resul ts for this PM CDT procedure are i n the results section. PLATELET ESTIMATE SEGUNDO 01/18/2022 2:44 Results for this PM CDT procedure are i n the results section. MANUAL DIFFERENTIAL SEGUNDO 01/18/2022 2:44 Resul ts for this PM CDT procedure are i n the results section. CBC WITH AUTO SEGUNDO 01/18/2022 2:44 Results for this DIFFERENTIAL PM CDT procedure are i n the results section. BASIC METABOLIC PANEL SEGUNDO 01/18/2022 2:44 Res ults for this PM CDT procedure are i n the results section. CBC WITH AUTO SEGUNDO 01/18/2022 2:44 Results for this DIFFERENTIAL PM CDT procedure are i n the results section. BASIC METABOLIC PANEL Early AM 01/14/2022 8:25 Res ults for this AM CDT procedure are i n the results section. CBC W PLT NO DIFF Early AM 01/14/2022 8:25 Results for this AM CDT procedure are i n the results section. GLUCOSE METER Timed 01/14/2022 7:53 Results for this AM CDT procedure are i n the results section. BASIC METABOLIC PANEL Early AM 01/13/2022 9:05 Res ults for this AM CDT procedure are i n the results section. CBC W PLT NO DIFF Early AM 01/13/2022 9:05 Results for this AM CDT procedure are i n the results section. SCAN-CARDIAC STRIP 01/13/2022 7:30 AM CDT SCAN-CARDIAC STRIP 01/13/2022 2:12 AM CDT SCAN-CARDIAC STRIP 01/12/2022 5:04 PM CDT GLUCOSE METER Timed 01/12/2022 5:01 Results for this PM CDT procedure are i n the results section. TSH Early AM 01/12/2022 8:39 Results for this AM CDT procedure are i n the results section. PROTIME-INR Early AM 01/12/2022 8:39 Results for this AM CDT procedure are i n the results section. CBC W PLT NO DIFF Early AM 01/12/2022 8:39 Results for this AM CDT procedure are i n the results section. BASIC METABOLIC PANEL Early AM 01/12/2022 8:39 Res ults for this AM CDT procedure are i n the results section. SCAN-CARDIAC STRIP 01/12/2022 8:30 AM CDT SCAN-CARDIAC STRIP 01/12/2022 4:07 AM CDT SODIUM,RANDOM URINE Today 01/12/2022 3:49 Resul ts for this AM CDT procedure are i n the results section. OSMOLALITY,URINE Today 01/12/2022 3:49 Results for this AM CDT procedure are i n the results section. TRANSFUSE RBC (NURSE STAT 01/12/2022 3:03 COMMUNICATION ORDER) AM CDT TRANSFUSE RBC (NURSE STAT 01/12/2022 12:07 COMMUNICATION ORDER) AM CDT RBC W/O TYPE & SCREEN STAT 01/11/2022 11:22 Re sults for this PM CDT procedure are i n the results section. RED BLOOD CELLS EA STAT 01/11/2022 11:20 Resul ts for this UNIT PM CDT procedure are i n the results section. HEMOGLOBIN Today 01/11/2022 11:14 Results for this PM CDT procedure are i n the results section. RBC W/O TYPE & SCREEN STAT 01/11/2022 11:00 Re sults for this PM CDT procedure are i n the results section. RED BLOOD CELLS EA STAT 01/11/2022 11:00 Resul ts for this UNIT PM CDT procedure are i n the results section. CWS PATH REVIEW Timed 01/11/2022 10:05 Results for this HEMATOLOGY PM CDT procedure are i n the results section. HEMOGLOBIN Today 01/11/2022 10:05 Results for this PM CDT procedure are i n the results section. SCAN-CARDIAC STRIP 01/11/2022 5:57 PM CDT PROTIME-INR STAT 01/11/2022 2:06 Results for this PM CDT procedure are i n the results section. BASIC METABOLIC PANEL STAT 01/11/2022 2:06 Res ults for this PM CDT procedure are i n the results section. CBC W PLT NO DIFF STAT 01/11/2022 2:05 Results for this PM CDT procedure are i n the results section. HCHG ACTIVATED Timed 01/11/2022 12:45 Results f or this CLOTTING TM CV PM CDT procedure are in the results section. HCHG ACTIVATED Timed 01/11/2022 12:12 Results f or this CLOTTING TM CV PM CDT procedure are in the results section. COMPREHENSIVE BLOOD Timed 01/11/2022 11:38 Resu lts for this GAS ARTERIAL AM CDT procedure are i n the results section. HCHG ACTIVATED Timed 01/11/2022 11:37 Results f or this CLOTTING TM CV AM CDT procedure are in the results section. HCHG ACTIVATED Timed 01/11/2022 11:15 Results f or this CLOTTING TM CV AM CDT procedure are in the results section. HCHG ACTIVATED Timed 01/11/2022 10:30 Results f or this CLOTTING TM CV AM CDT procedure are in the results section. HCHG KIT PR5 Routine 01/11/2022 7:56 Results for this AM CDT procedure are i n the results section. HCHG DRSG PR1 Routine 01/11/2022 7:56 Results for this AM CDT procedure are i n the results section. HCHG DRSG PR5 Routine 01/11/2022 7:56 Results for this AM CDT procedure are i n the results section. HCHG TUBING PR5 Routine 01/11/2022 7:56 Results f or this AM CDT procedure are i n the results section. HC KIT MONITORING Routine 01/11/2022 7:56 Resul ts for this PR5 AM CDT procedure are i n the results section. HCHG TUBING PR1 Routine 01/11/2022 7:56 Results f or this AM CDT procedure are i n the results section. [facility] ANES US GUIDE FOR Routine 01/11/2022 7:56 Re sults for this VASC ACCESS AM CDT procedure are i n the results section. [facility] CATH INFUSION Routine 01/11/2022 7:56 Result s for this PR100 AM CDT procedure are i n the results section. CVC TRIPLE LUMEN Routine 01/11/2022 7:56 Results for this AM CDT procedure are i n the results section. ENDOTRACHEAL TUBE Routine 01/11/2022 7:55 Results for this AM CDT procedure are i n the results section. ENDOTRACHEAL TUBE Routine 01/11/2022 7:55 Results for this AM CDT procedure are i n the results section. HARVEST ARM VEIN 01/11/2022 7:07 ISCHEMIA AM CDT Case Notes LEFT FEMORAL POPLITEAL BYPAS S W/LEFT ARM VEIN HARVEST BYPASS FEMORAL POPLITEAL INSITU GRAFT 01/11/2022 7:07 AM CDT ISCHEMIA Case Notes LEFT FEMORAL POPLITEAL BYPAS S W/LEFT ARM VEIN HARVEST HC KIT PR5 Routine 01/11/2022 7:01 AM Results f or this CDT procedure are i n the results section. HCHG DRSG PR5 Routine 01/11/2022 7:01 AM Results for this CDT procedure are i n the results section. HCHG DRSG PR1 Routine 01/11/2022 7:01 AM Results for this CDT procedure are i n the results section. HC TUBING PR20 Routine 01/11/2022 7:01 AM Resul ts for this CDT procedure are i n the results section. HC TUBING PR1 Routine 01/11/2022 7:01 AM Result s for this CDT procedure are i n the results section. [facility] ANES ARTERIAL Routine 01/11/2022 7:01 AM Res ults for this CATH FOR SAMPLE CDT procedure ar e in MONITOR TRANS the results section. [facility] CATH PR5 Routine 01/11/2022 7:01 AM Results for this CDT procedure are i n the results section. TYPE & SCREEN Preop 01/11/2022 6:27 AM Results for this CDT procedure are i n the results section. PROTIME-INR Preop 01/11/2022 6:27 AM Results f or this CDT procedure are i n the results section. BASIC METABOLIC Preop 01/11/2022 6:27 AM Result s for this PANEL CDT procedure are i n the results section. CBC W PLT NO DIFF Preop 01/11/2022 6:27 AM Resu lts for this CDT procedure are i n the results section. HOLTER MONITOR Routine 01/10/2022 PVC (premature Results for this ventricular procedure are i n contraction) the results section. COVID 19 Timed 01/07/2022 10:08 AM Critical limb Results for this CDT ischemia of left procedure a re in lower extremity (HC) the res ults section. COVID 19 COLLECTION Today 01/07/2022 10:08 AM Critical limb Results for this CDT ischemia of left procedure a re in lower extremity (HC) the res ults section. EKG 12 LEAD Routine 01/05/2022 2:13 PM PVC (premature CDT ventricular contraction) OH READING EKG - NO Routine 01/05/2022 2:11 PM PVC (premature CHARGE, COMP ONLY CDT ventricular contraction) EKG 12 LEAD Routine 01/05/2022 PVC (premature ventricular contraction) US VEIN MAPPING Routine 12/31/2021 4:43 PM PAD (peripheral Res ults for this UPPER EXTREMITY CDT artery disease) () proc edure are in BILATERAL the results section. NUCLEATED RED BLOOD Routine 12/31/2021 3:52 PM PAD (peripheral Results for this CELLS PERCENT OF CDT artery disease) () procedure are in BLOOD LEUKOCYTES the results section. BASIC METABOLIC Routine 12/31/2021 3:52 PM PAD (peripheral Res ults for this PANEL CDT artery disease) () procedu re are in the results section. CBC W PLT NO DIFF Routine 12/31/2021 3:52 PM PAD (peripheral R esults for this CDT artery disease) (HC) procedu re are in the results section. US VEIN MAPPING Routine 12/31/2021 3:08 PM Peripheral artery R esults for this LOWER EXTREMITY CDT disease (HC) procedure ar e in BILATERAL the results section. HCHG ACTIVATED Timed 12/15/2021 9:36 AM Results for this CLOTTING TM CV CDT procedure are in the results section. HCHG ACTIVATED Timed 12/15/2021 8:56 AM Results for this CLOTTING TM CV CDT procedure are in the results section. TYPE & SCREEN Preop 12/15/2021 6:28 AM Results for this CDT procedure are i n the results section. NUCLEATED RED BLOOD STAT 12/15/2021 6:28 AM Re sults for this CELLS PERCENT OF CDT procedur e are in BLOOD LEUKOCYTES the results section. CBC W PLT NO DIFF Preop 12/15/2021 6:28 AM Resu lts for this CDT procedure are i n the results section. BASIC METABOLIC Preop 12/15/2021 6:28 AM Result s for this PANEL CDT procedure are i n the results section. from Last 3 Months Results (ABNORMAL) BASIC METABOLIC PANEL (03/10/2022 2:18 PM CDT)Only the most recent of 13 resultswithin the time period is included. Analysis Performed At Patho logist Time Signature SODIUM 125 (L) 135 - 145 03/11/2022 [facility] mmol/L 7:16 PM CDT [facility] POTASSIUM 4.0 3.5 - 5.0 03/11/2022 [facility] mmol/L 7:16 PM CDT [facility] CHLORIDE 95 (L) 98 - 110 03/11/2022 [facility] mmol/L 7:16 PM CDT [facility] CO2,TOTAL 23 21 - 31 03/11/2022 [facility] mmol/L 7:16 PM CDT [facility] ANION GAP 7 5 - 18 03/11/2022 [facility] 7:16 PM CDT [facility] GLUCOSE 80 65 - 100 03/11/2022 [facility] mg/dL 7:16 PM CDT [facility] CALCIUM 8.4 (L) 8.5 - 10.5 03/11/2022 [facility] mg/dL 7:16 PM CDT [facility] BUN 12 8 - 25 03/11/2022 [facility] mg/dL 7:16 PM CDT [facility] CREATININE 1.10 0.72 - 03/11/2022 [facility] 1.25 mg/dL 7:16 PM CDT [facility] BUN/CREAT RATIO 11 10 - 20 03/11/2022 [facility] 7:16 PM CDT [facility] eGFR 68 (L) >90 03/11/2022 [facility] mL/min/1.7 7:16 PM CDT [facility] Comment: As of 2021, eGFR is calcu lated by the CKD-EPI creatinine equation without race adjustment. eGFR can be inf luenced by muscle mass, exercise, and diet. The reported eGFR is an estimation only and is only applicable if the renal function is stable. Specimen Anatomical Collection Method / Collection Time Recei markus Time (Source) Location / Volume Laterality Blood BLOOD SPECIMEN / Venipuncture / 03/10/2022 2:18 2021 2:18 Unknown Unknown PM CDT PM CDT Monico Modi MD CHEMISTRY Performing Organization Address City/State/ZIP Code Phon e Number [facility] [address] [place] [address] [facility] [address] LABORATORY US ANKLE BRACHIAL INDEX BILATERAL (02/24/2022 2:37 PM CDT) Anatomical Region Laterality Modality ANKLES, ANKLE L, ANKLE R Ultrasound Specimen (Source) Anatomical Collection Method Collection Time Re ceived Time Location / / Volume Laterality 02/24/2022 1:47 PM CDT Narrative 02/28/2022 3:10 PM CDT VASCULAR ULTRASOUND REPORT ANISH L C[facility] Accession#: ?? [id number] : ?1940 Study Date: ?? 02/24 1:47:05 PM Age: ?81 years ?? Tech: ? JSL Gender: M ?Referring MD: RUTH EILAS Site: [facility] Study performed: ?(bilateral), re sting JORGE, TBI, duplex US. Indication for study: Follow-up VP & GENERAL COUNSEL/sten t/bypass Study Quality: ?Good Other History: Peripheral artery disease (HC) TECHNIQUE: Lower/upper extremity arteries were exam ined per exam protocol by duplex ultrasound, color-flow and spectral Doppler. Peak systolic velocities (PSV), Doppler waveform quality, velocity ratios and vessel size in cm, were documented at protocol specific sites. Physiologic data including segmental pressures, ankle/brachial index (JORGE), digit PPG recordings, laser Doppler flowmetry and digit temperatures were documented at sites per exam protoc ol and test requirements. IMPRESSION: 1. Resting ankle-brachial index moderat bhavna reduced on the right and normal on the left. 2. Severely reduced toe-brachial index on the right of 0.32 and moderately reduced n the left of 0.39. 3. Occluded right distal femoral artery stent with collaterals. 4. Occluded bilateral dorsalis pedis ar teries. 5. The left common femoral to posterior tibial artery bypass is patent with mild stenosis within the proximal segment. COMPARISON: Compared to prior study 10/05/2021, s/p left leg bypass. Increase in left TBI. FINDINGS: Normal JORGE on the left and moderate on t he right leg. 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 The bilateral DPAs appear to be occluded . The bilateral PTAs are monophasic. The distal right FA stent appears to be occluded with collaterals feeding distally. The left CHEERLEADING COACH to VP & GENERAL COUNSEL bypass appears to be patent with a mild stenosis within the proximal segment. Right toe/brachial index indicates sever e range. Left toe/brachial index indicates modera te range. +--------+ + + RIGHT ?? Velocity cm/s Phasicity +--------+ + + CHEERLEADING COACH PRX ? 79 ? triphasic +--------+ + + CHEERLEADING COACH DST ? 55 ? biphasic ?? +--------+ + + PFA ? 92 ? biphasic ?? +--------+ + + SFA PRX ? 52 ? biphasic ?? +--------+ + + SFA MID ? 37 ? monophasic +--------+ + + SFA DST ? 24 ? monophasic +--------+ + + MAT PRX ? 13 ? monophasic +--------+ + + MAT DST ? 20 ? monophasic +--------+ + + VP & GENERAL COUNSEL DST ? 25 ? monophasic +--------+ + + DPA ?0 ? occluded ?? +--------+ + + +-------+ + + LEFT ?? Velocity cm/s Phasicity +-------+ + + CHEERLEADING COACH PRX ? 88 ? triphasic +-------+ + + CHEERLEADING COACH DST ? 77 ? biphasic ?? +-------+ + + PFA ? 41 ? monophasic +-------+ + + VP & GENERAL COUNSEL DST ? 49 ? monophasic +-------+ + + DPA ?0 ? occluded ?? +-------+ + + Criteria: Stenosis ?V. Ratio Mild ?<50% ?<2.0 Moderate ?? 50-74% ?> or = 2.0 Severe ? 75-99% ?> or = 4.0 Occluded ?100% ?? no detectable flow Pressures +-----+ +--------+ +-----+ ? RIGHT (mmHg) ? LEFT (mmHg) ? +-----+ +--------+ +-----+ Index ?152 ? Brachial ? Index +-----+ +--------+ +-----+ 0.74 ?113 ?VP & GENERAL COUNSEL ?195 ? 1.28 +-----+ +--------+ +-----+ 0.67 ?102 ?DPA ?80 ? 0.53 +-----+ +--------+ +-----+ 0.32 ? 49 ? Digit 1 ?6 0 ? 0.39 +-----+ +--------+ +-----+ STENT Stent Location Right: Mid-DST FA. + + + +--------+ + RIGHT ? Velocity cm/s Phasic ity Stenosis Ratio ? + + + +--------+ + PRE Stent ? 25 ? bip hasic ? + + + +--------+ + PRX Stent Edge ? 31 ? bipha sic ? + + + +--------+ + PRX Stent ? 31 ? mon ophasic ? + + + +--------+ + MID Stent ? 37 ? mon ophasic ? + + + +--------+ + DST Stent ? 45 ? mon ophasic ? + + + +--------+ + DST Stent Edge ?0 ? + + + +--------+ + POST Stent ? 14 ? mon ophasic ? collateral feeding + + + +--------+ + BYPASS GRAFT Left graft type: CHEERLEADING COACH-VP & GENERAL COUNSEL. +---------+ + +---- ----+ + LEFT ? Velocity cm/s Phasicity St enosis ??Ratio ?? +---------+ + +---- ----+ + INFLOW ? 44 ? monophasi c ? +---------+ + +---- ----+ + PRX ANAST ? 61 ? monophasic ? +---------+ + +---- ----+ + PRX GRAFT ? 156 ? stenotic ??mild ?? 78-156cm/s +---------+ + +---- ----+ + MID GRAFT ? 107 ? monophasic ? +---------+ + +---- ----+ + DST GRAFT ? 56 ? monophasic ? +---------+ + +---- ----+ + DST ANAST ? 49 ? monophasic ? +---------+ + +---- ----+ + OUTFLOW ? 48 ? monophasi c ? +---------+ + +---- ----+ + Susan Zavala MD. Electronically signed on 02/28/2022 3:10: 55 PM This study was performed and interpreted by a service accredited by the Intersocietal Accreditation Commission (IAC/Vascular), [email or web address] Report generated by Chat& (ChatAnd). ??Final ?? Procedure Note Susan Zavala MD - 02/28/2022 VASCULAR ULTRASOUND REPORT ANISH COUGHLIN : 1940 Study Date: 02/24/2022 1: 47:05 PM Age: 81 years Tech: LUIS Gender: M Referring MD: KOREY ELIAS Site: [facility] - Vascular Center Study performed: (bilateral), resting AB I, TBI, duplex US. Indication for study: Follow-up VP & GENERAL COUNSEL/sten t/bypass Study Quality: Good Other History: Peripheral artery disease (HC) TECHNIQUE: Lower/upper extremity arteries were exam ined per exam protocol by duplex ultrasound, color-flow and spectral Doppler. Peak systolic velocities (PSV), Doppler waveform quality, velocity ratios and vessel size in cm, were documented at protocol specific sit es. Physiologic data including segmental pressures, ankle/brachial index (JORGE), digit PPG recordings, laser Doppler flowmetry and digit temperatures were documented at sites per exam protocol and test requirements. IMPRESSION: 1. Resting ankle-brachial index moderat bhavna reduced on the right and normal on the left. 2. Severely reduced toe-brachial index on the right of 0.32 and moderately reduced n the left of 0.39. 3. Occluded right distal femoral artery stent with collaterals. 4. Occluded bilateral dorsalis pedis ar teries. 5. The left common femoral to posterior tibial artery bypass is patent with mild stenosis within the proximal segment. COMPARISON: Compared to prior study 10/05/2021, s/p left leg bypass. Increase in left TBI. FINDINGS: Normal JORGE on the left and moderate on t he right leg. 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 The bilateral DPAs appear to be occluded . The bilateral PTAs are monophasic. The distal right FA stent appears to be occluded with collaterals feeding distally. The left CHEERLEADING COACH to VP & GENERAL COUNSEL bypass appears to be patent with a mild stenosis within the proximal segment. Right toe/brachial index indicates sever e range. Left toe/brachial index indicates modera te range. +--------+ + + RIGHT Velocity cm/s Phasicity +--------+ + + CHEERLEADING COACH PRX 79 triphasic +--------+ + + CHEERLEADING COACH DST 55 biphasic +--------+ + + PFA 92 biphasic +--------+ + + SFA PRX 52 biphasic +--------+ + + SFA MID 37 monophasic +--------+ + + SFA DST 24 monophasic +--------+ + + MAT PRX 13 monophasic +--------+ + + MAT DST 20 monophasic +--------+ + + VP & GENERAL COUNSEL DST 25 monophasic +--------+ + + DPA 0 occluded +--------+ + + +-------+ + + LEFT Velocity cm/s Phasicity +-------+ + + CHEERLEADING COACH PRX 88 triphasic +-------+ + + CHEERLEADING COACH DST 77 biphasic +-------+ + + PFA 41 monophasic +-------+ + + VP & GENERAL COUNSEL DST 49 monophasic +-------+ + + DPA 0 occluded +-------+ + + Criteria: Stenosis V. Ratio Mild <50% <2.0 Moderate 50-74% > or = 2.0 Severe 75-99% > or = 4.0 Occluded 100% no detectable flow Pressures +-----+ +--------+ +-----+ RIGHT (mmHg) LEFT (mmHg) +-----+ +--------+ +-----+ Index 152 Brachial Index +-----+ +--------+ +-----+ 0.74 113 VP & GENERAL COUNSEL 195 1.28 +-----+ +--------+ +-----+ 0.67 102 DPA 80 0.53 +-----+ +--------+ +-----+ 0.32 49 Digit 1 60 0.39 +-----+ +--------+ +-----+ STENT Stent Location Right: Mid-DST FA. + + + +--------+ + RIGHT Velocity cm/s Phasicity Stenosi s Ratio + + + +--------+ + PRE Stent 25 biphasic + + + +--------+ + PRX Stent Edge 31 biphasic + + + +--------+ + PRX Stent 31 monophasic + + + +--------+ + MID Stent 37 monophasic + + + +--------+ + DST Stent 45 monophasic + + + +--------+ + DST Stent Edge 0 + + + +--------+ + POST Stent 14 monophasic collatera l feeding + + + +--------+ + BYPASS GRAFT Left graft type: CHEERLEADING COACH-VP & GENERAL COUNSEL. +---------+ + +---- ----+ + LEFT Velocity cm/s Phasicity Stenosis Ratio +---------+ + +---- ----+ + INFLOW 44 monophasic +---------+ + +---- ----+ + PRX ANAST 61 monophasic +---------+ + +---- ----+ + PRX GRAFT 156 stenotic mild 78-15 6cm/s +---------+ + +---- ----+ + MID GRAFT 107 monophasic +---------+ + +---- ----+ + DST GRAFT 56 monophasic +---------+ + +---- ----+ + DST ANAST 49 monophasic +---------+ + +---- ----+ + OUTFLOW 48 monophasic +---------+ + +---- ----+ + Susan Zavala MD. Electronically signed on 02/28/2022 3:10: 55 PM This study was performed and interpreted by a service accredited by the Intersocietal Accreditation Commission (IAC/Vascular), [email or web address] Report generated by Chat& (ChatAnd). Final [address] US ARTERIAL LOWER EXTREMITY BILATERAL (02/24/2022 2:37 PM CDT) Anatomical Region Laterality Modality LEGS, LEG L, LEG R Ultrasound Specimen (Source) Anatomical Collection Method Collection Time Re ceived Time Location / / Volume Laterality 02/24/2022 1:47 PM CDT Narrative 02/28/2022 3:10 PM CDT VASCULAR ULTRASOUND REPORT ANISH COUGHLIN Accession#: ?? [id number] : ?1940 Study Date: ?? 02/24 1:47:05 PM Age: ?81 years ?? Tech: ? JSL Gender: M ?Referring MD: RUTH ELIAS Site: [facility] Vascular Center Study performed: ?(bilateral), re sting JORGE, TBI, duplex US. Indication for study: Follow-up VP & GENERAL COUNSEL/sten t/bypass Study Quality: ?Good Other History: Peripheral artery disease (HC) TECHNIQUE: Lower/upper extremity arteries were exam ined per exam protocol by duplex ultrasound, color-flow and spectral Doppler. Peak systolic velocities (PSV), Doppler waveform quality, velocity ratios and vessel size in cm, were documented at protocol specific sites. Physiologic data including segmental pressures, ankle/brachial index (JORGE), digit PPG recordings, laser Doppler flowmetry and digit temperatures were documented at sites per exam protoc ol and test requirements. IMPRESSION: 1. Resting ankle-brachial index moderat bhavna reduced on the right and normal on the left. 2. Severely reduced toe-brachial index on the right of 0.32 and moderately reduced n the left of 0.39. 3. Occluded right distal femoral artery stent with collaterals. 4. Occluded bilateral dorsalis pedis ar teries. 5. The left common femoral to posterior tibial artery bypass is patent with mild stenosis within the proximal segment. COMPARISON: Compared to prior study 10/05/2021, s/p left leg bypass. Increase in left TBI. FINDINGS: Normal JORGE on the left and moderate on t he right leg. 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 The bilateral DPAs appear to be occluded . The bilateral PTAs are monophasic. The distal right FA stent appears to be occluded with collaterals feeding distally. The left CHEERLEADING COACH to VP & GENERAL COUNSEL bypass appears to be patent with a mild stenosis within the proximal segment. Right toe/brachial index indicates sever e range. Left toe/brachial index indicates modera te range. +--------+ + + RIGHT ?? Velocity cm/s Phasicity +--------+ + + CHEERLEADING COACH PRX ? 79 ? triphasic +--------+ + + CHEERLEADING COACH DST ? 55 ? biphasic ?? +--------+ + + PFA ? 92 ? biphasic ?? +--------+ + + SFA PRX ? 52 ? biphasic ?? +--------+ + + SFA MID ? 37 ? monophasic +--------+ + + SFA DST ? 24 ? monophasic +--------+ + + MAT PRX ? 13 ? monophasic +--------+ + + MAT DST ? 20 ? monophasic +--------+ + + VP & GENERAL COUNSEL DST ? 25 ? monophasic +--------+ + + DPA ?0 ? occluded ?? +--------+ + + +-------+ + + LEFT ?? Velocity cm/s Phasicity +-------+ + + CHEERLEADING COACH PRX ? 88 ? triphasic +-------+ + + CHEERLEADING COACH DST ? 77 ? biphasic ?? +-------+ + + PFA ? 41 ? monophasic +-------+ + + VP & GENERAL COUNSEL DST ? 49 ? monophasic +-------+ + + DPA ?0 ? occluded ?? +-------+ + + Criteria: Stenosis ?V. Ratio Mild ?<50% ?<2.0 Moderate ?? 50-74% ?> or = 2.0 Severe ? 75-99% ?> or = 4.0 Occluded ?100% ?? no detectable flow Pressures +-----+ +--------+ +-----+ ? RIGHT (mmHg) ? LEFT (mmHg) ? +-----+ +--------+ +-----+ Index ?152 ? Brachial ? Index +-----+ +--------+ +-----+ 0.74 ?113 ?VP & GENERAL COUNSEL ?195 ? 1.28 +-----+ +--------+ +-----+ 0.67 ?102 ?DPA ?80 ? 0.53 +-----+ +--------+ +-----+ 0.32 ? 49 ? Digit 1 ?6 0 ? 0.39 +-----+ +--------+ +-----+ STENT Stent Location Right: Mid-DST FA. + + + +--------+ + RIGHT ? Velocity cm/s Phasic ity Stenosis Ratio ? + + + +--------+ + PRE Stent ? 25 ? bip hasic ? + + + +--------+ + PRX Stent Edge ? 31 ? bipha sic ? + + + +--------+ + PRX Stent ? 31 ? mon ophasic ? + + + +--------+ + MID Stent ? 37 ? mon ophasic ? + + + +--------+ + DST Stent ? 45 ? mon ophasic ? + + + +--------+ + DST Stent Edge ?0 ? + + + +--------+ + POST Stent ? 14 ? mon ophasic ? collateral feeding + + + +--------+ + BYPASS GRAFT Left graft type: CHEERLEADING COACH-VP & GENERAL COUNSEL. +---------+ + +---- ----+ + LEFT ? Velocity cm/s Phasicity St enosis ??Ratio ?? +---------+ + +---- ----+ + INFLOW ? 44 ? monophasi c ? +---------+ + +---- ----+ + PRX ANAST ? 61 ? monophasic ? +---------+ + +---- ----+ + PRX GRAFT ? 156 ? stenotic ??mild ?? 78-156cm/s +---------+ + +---- ----+ + MID GRAFT ? 107 ? monophasic ? +---------+ + +---- ----+ + DST GRAFT ? 56 ? monophasic ? +---------+ + +---- ----+ + DST ANAST ? 49 ? monophasic ? +---------+ + +---- ----+ + OUTFLOW ? 48 ? monophasi c ? +---------+ + +---- ----+ + Susan Zavala MD. Electronically signed on 02/28/2022 3:10: 55 PM This study was performed and interpreted by a service accredited by the Intersocietal Accreditation Commission (IAC/Vascular), [email or web address] Report generated by Chat& (ChatAnd). ??Final ?? Procedure Note Susan Zavala MD - 02/28/2022 VASCULAR ULTRASOUND REPORT ANISH COUGHLIN : 1940 Study Date: 02/24/2022 1: 47:05 PM Age: 81 years Tech: LUIS Gender: M Referring MD: KOREY ELIAS Site: [facility] Vascular Center Study performed: (bilateral), resting AB I, TBI, duplex US. Indication for study: Follow-up VP & GENERAL COUNSEL/sten t/bypass Study Quality: Good Other History: Peripheral artery disease (HC) TECHNIQUE: Lower/upper extremity arteries were exam ined per exam protocol by duplex ultrasound, color-flow and spectral Doppler. Peak systolic velocities (PSV), Doppler waveform quality, velocity ratios and vessel size in cm, were documented at protocol specific sit es. Physiologic data including segmental pressures, ankle/brachial index (JORGE), digit PPG recordings, laser Doppler flowmetry and digit temperatures were documented at sites per exam protocol and test requirements. IMPRESSION: 1. Resting ankle-brachial index moderat bhavna reduced on the right and normal on the left. 2. Severely reduced toe-brachial index on the right of 0.32 and moderately reduced n the left of 0.39. 3. Occluded right distal femoral artery stent with collaterals. 4. Occluded bilateral dorsalis pedis ar teries. 5. The left common femoral to posterior tibial artery bypass is patent with mild stenosis within the proximal segment. COMPARISON: Compared to prior study 10/05/2021, s/p left leg bypass. Increase in left TBI. FINDINGS: Normal JORGE on the left and moderate on t he right leg. 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 The bilateral DPAs appear to be occluded . The bilateral PTAs are monophasic. The distal right FA stent appears to be occluded with collaterals feeding distally. The left CHEERLEADING COACH to VP & GENERAL COUNSEL bypass appears to be patent with a mild stenosis within the proximal segment. Right toe/brachial index indicates sever e range. Left toe/brachial index indicates modera te range. +--------+ + + RIGHT Velocity cm/s Phasicity +--------+ + + CHEERLEADING COACH PRX 79 triphasic +--------+ + + CHEERLEADING COACH DST 55 biphasic +--------+ + + PFA 92 biphasic +--------+ + + SFA PRX 52 biphasic +--------+ + + SFA MID 37 monophasic +--------+ + + SFA DST 24 monophasic +--------+ + + MAT PRX 13 monophasic +--------+ + + MAT DST 20 monophasic +--------+ + + VP & GENERAL COUNSEL DST 25 monophasic +--------+ + + DPA 0 occluded +--------+ + + +-------+ + + LEFT Velocity cm/s Phasicity +-------+ + + CHEERLEADING COACH PRX 88 triphasic +-------+ + + CHEERLEADING COACH DST 77 biphasic +-------+ + + PFA 41 monophasic +-------+ + + VP & GENERAL COUNSEL DST 49 monophasic +-------+ + + DPA 0 occluded +-------+ + + Criteria: Stenosis V. Ratio Mild <50% <2.0 Moderate 50-74% > or = 2.0 Severe 75-99% > or = 4.0 Occluded 100% no detectable flow Pressures +-----+ +--------+ +-----+ RIGHT (mmHg) LEFT (mmHg) +-----+ +--------+ +-----+ Index 152 Brachial Index +-----+ +--------+ +-----+ 0.74 113 VP & GENERAL COUNSEL 195 1.28 +-----+ +--------+ +-----+ 0.67 102 DPA 80 0.53 +-----+ +--------+ +-----+ 0.32 49 Digit 1 60 0.39 +-----+ +--------+ +-----+ STENT Stent Location Right: Mid-DST FA. + + + +--------+ + RIGHT Velocity cm/s Phasicity Stenosi s Ratio + + + +--------+ + PRE Stent 25 biphasic + + + +--------+ + PRX Stent Edge 31 biphasic + + + +--------+ + PRX Stent 31 monophasic + + + +--------+ + MID Stent 37 monophasic + + + +--------+ + DST Stent 45 monophasic + + + +--------+ + DST Stent Edge 0 + + + +--------+ + POST Stent 14 monophasic collatera l feeding + + + +--------+ + BYPASS GRAFT Left graft type: CHEERLEADING COACH-VP & GENERAL COUNSEL. +---------+ + +---- ----+ + LEFT Velocity cm/s Phasicity Stenosis Ratio +---------+ + +---- ----+ + INFLOW 44 monophasic +---------+ + +---- ----+ + PRX ANAST 61 monophasic +---------+ + +---- ----+ + PRX GRAFT 156 stenotic mild 78-15 6cm/s +---------+ + +---- ----+ + MID GRAFT 107 monophasic +---------+ + +---- ----+ + DST GRAFT 56 monophasic +---------+ + +---- ----+ + DST ANAST 49 monophasic +---------+ + +---- ----+ + OUTFLOW 48 monophasic +---------+ + +---- ----+ + Susan Zavala MD. Electronically signed on 02/28/2022 3:10: 55 PM This study was performed and interpreted by a service accredited by the Intersocietal Accreditation Commission (IAC/Vascular), [email or web address] Report generated by Chat& (ChatAnd). Final [place] AGUIRRE (ABNORMAL) CBC WITH AUTO DIFFERENTIAL (02/09/2022 6:30 AM CDT)Only the most recent of4 resultswithin the time period is included. [facility] Method Time Signature WHITE BLOOD 4.5 4.5 - 11.0 02/09/2022 [place] COUNT thou/cu mm 6:59 AM CDT HOSPITAL RED BLOOD COUNT 3.66 (L) 4.30 - 02/09/2022 [place] 5.90 6:59 AM CDT HOSPITAL mil/cu mm HEMOGLOBIN 11.4 (L) 13.5 - 02/09/2022 [place] 17.5 g/dL 6:59 AM CDT HOSPITAL HEMATOCRIT 34.6 (L) 37.0 - 02/09/2022 [place] 53.0 % 6:59 AM CDT HOSPITAL MCV 95 80 - 100 02/09/2022 [place] fL 6:59 AM CDT HOSPITAL MCH 31.1 26.0 - 02/09/2022 [place] 34.0 pg 6:59 AM CDT HOSPITAL MCHC 32.9 32.0 - 02/09/2022 [place] 36.0 g/dL 6:59 AM CDT HOSPITAL RDW 14.2 11.5 - 02/09/2022 [place] 15.5 % 6:59 AM CDT HOSPITAL PLATELET COUNT 170 140 - 440 02/09/2022 [place] thou/cu mm 6:59 AM CDT HOSPITAL MPV 8.7 6.5 - 11.0 02/09/2022 [place] fL 6:59 AM CDT HOSPITAL % NEUT 53.3 % 02/09/2022 [place] 6:59 AM CDT HOSPITAL % LYMPH 22.7 % 02/09/2022 [place] 6:59 AM CDT HOSPITAL % MONO 8.5 % 02/09/2022 [place] 6:59 AM CDT HOSPITAL % EOS 14.2 % 02/09/2022 [place] 6:59 AM CDT HOSPITAL % BASO 1.3 % 02/09/2022 [place] 6:59 AM CDT HOSPITAL ABSOLUTE 2.4 1.7 - 7.0 02/09/2022 [place] NEUTROPHILS thou/cu mm 6:59 AM CDT HOSPITAL ABSOLUTE 1.0 0.9 - 2.9 02/09/2022 [place] LYMPHOCYTES thou/cu mm 6:59 AM CDT HOSPITAL ABSOLUTE 0.4 <0.9 02/09/2022 [place] MONOCYTES thou/cu mm 6:59 AM CDT HOSPITAL ABSOLUTE 0.6 (H) <0.5 02/09/2022 [place] EOSINOPHILS thou/cu mm 6:59 AM CDT HOSPITAL ABSOLUTE 0.1 <0.3 02/09/2022 [place] BASOPHILS thou/cu mm 6:59 AM CDT HOSPITAL Specimen Anatomical Collection Method / Collection Time Recei markus Time (Source) Location / Volume Laterality Blood BLOOD SPECIMEN / Venipuncture / 02/09/2022 6:30 2021 6:55 Unknown Unknown AM CDT AM CDT Izzy Chen NP HEMATOLOGY Performing Organization Address City/State/ZIP Code Phon e Number [facility] [address] [phone] (ABNORMAL) RED CELL MORPHOLOGY (01/18/2022 2:44 PM CDT) [facility] Method Time Signature ACANTHOCYTES Moderate 01/18/2022 [place] 3:38 PM CDT HOSPITAL POLYCHROMASIA Slight 01/18/2022 [place] 3:38 PM CDT HOSPITAL RBC COMMENT Present (A) RBC 01/18/2022 [place] morphology 3:38 PM CDT HOSPITAL appears normal, RBC morphology within normal limits for newborns. Specimen Anatomical Collection Method / Collection Time Recei markus Time (Source) Location / Volume Laterality Blood BLOOD SPECIMEN / Venipuncture / 01/18/2022 2:44 2021 2:46 Unknown Unknown PM CDT PM CDT Maykel Sutton MD HEMATOLOGY Performing Organization Address [facility]/[address] [phone] PLATELET ESTIMATE (01/18/2022 2:44 PM CDT) [facility] gist Method Time Signature PLATELET Adequate Adequate, No 01/18/2022 [place] ESTIMATE estimate 3:38 PM CDT HOSPITAL Specimen Anatomical Collection Method / Collection Time Recei markus Time (Source) Location / Volume Laterality Blood BLOOD SPECIMEN / Venipuncture / 01/18/2022 2:44 2021 2:46 Unknown Unknown PM CDT PM CDT Maykel Sutton MD HEMATOLOGY Performing Organization Address [facility]/[address] [phone] (ABNORMAL) MANUAL DIFFERENTIAL (01/18/2022 2:44 PM CDT) Analysis Performed At [facility] logist Time Signature % NEUTROPHILS 59.0 % 01/18/2022 [place] 3:38 PM CDT HOSPITAL % LYMPHOCYTES 20.0 % 01/18/2022 [place] 3:38 PM CDT HOSPITAL % MONOCYTES 13.0 % 01/18/2022 [place] 3:38 PM CDT HOSPITAL % EOSINOPHILS 8.0 % 01/18/2022 [place] 3:38 PM CDT HOSPITAL % BASOPHILS 0.0 % 01/18/2022 [place] 3:38 PM CDT HOSPITAL NEUTROPHILS 3.5 1.7 - 7.0 01/18/2022 [place] ABSOLUTE thou/cu mm 3:38 PM CDT HOSPITAL LYMPHOCYTES 1.2 0.9 - 2.9 01/18/2022 [place] ABSOLUTE thou/cu mm 3:38 PM CDT HOSPITAL MONOCYTES 0.8 <0.9 01/18/2022 [place] ABSOLUTE thou/cu mm 3:38 PM CDT HOSPITAL EOSINOPHILS 0.5 (H) <0.5 01/18/2022 [place] ABSOLUTE thou/cu mm 3:38 PM CDT HOSPITAL BASOPHILS 0.0 <0.3 01/18/2022 [facility] ABSOLUTE thou/cu mm 3:38 PM CDT HOSPITAL Specimen Anatomical Collection Method / Collection Time Recei markus Time (Source) Location / Volume Laterality Blood BLOOD SPECIMEN / Venipuncture / 01/18/2022 2:44 2021 2:46 Unknown Unknown PM CDT PM CDT Maykel Sutton MD HEMATOLOGY Performing Organization Address City/[facility]/ZIP [facility] Phon e Number [facility] [address] [place] [phone] TYPE & SCREEN (01/18/2022 2:44 PM CDT)Only the most recent of3 resultswithin the time period is included. [facility] [employer] Method Time Signature ABORH A Rh 01/18/2022 [place] Negative 3:33 PM CDT HOSPITAL BLOOD BANK ANTIBODY Negative Negative 01/18/2022 [place] SCREEN 3:33 PM CDT HOSPITAL BLOOD BANK SPECIMEN 01/21/22 01/18/2022 [place] EXPIRATION 23:59 3:33 PM CDT HOSPITAL DATE/TIME BLOOD BANK Specimen Anatomical Collection Method / Collection Time Recei markus Time (Source) Location / Volume Laterality Blood BLOOD SPECIMEN / Venipuncture / 01/18/2022 2:44 2021 2:46 Unknown Unknown PM CDT PM CDT Maykel Sutton MD BLOOD BANK Performing Organization Address City/State/ZIP Code Phon e Number [facility] BLOOD BANK [address] [place] [phone] (ABNORMAL) CBC (01/14/2022 8:25 AM CDT)Only the most recent of7 resultswithin the time period is included. [facility] [employer] Method Time Signature WHITE BLOOD 6.2 4.5 - 11.0 01/14/2022 [facility] COUNT thou/cu mm 8:37 AM CDT [facility] RED BLOOD COUNT 2.59 (L) 4.30 - 01/14/2022 [facility] 5.90 8:37 AM CDT [facility] mil/cu mm TRAL LABORATORY HEMOGLOBIN 8.3 (L) 13.5 - 01/14/2022 [facility] 17.5 g/dL 8:37 AM CDT [facility] HEMATOCRIT 23.2 (L) 37.0 - 01/14/2022 [facility] 53.0 % 8:37 AM CDT [facility] MCV 90 80 - 100 01/14/2022 [facility] fL 8:37 AM CDT [facility] MCH 32.0 26.0 - 01/14/2022 [facility] 34.0 pg 8:37 AM CDT [facility] MCHC 35.8 32.0 - 01/14/2022 [facility] 36.0 g/dL 8:37 AM CDT [facility] RDW 12.9 11.5 - 01/14/2022 [facility] 15.5 % 8:37 AM CDT [facility] PLATELET COUNT 118 (L) 140 - 440 01/14/2022 [facility] thou/cu mm 8:37 AM CDT [facility] MPV 9.5 6.5 - 11.0 01/14/2022 [facility] fL 8:37 AM CDT [facility]AL LABORATORY NRBC 0.0 % 01/14/2022 [facility] 8:37 AM CDT [facility] ABS NRBC 0.0 thou /cu 01/14/2022 [facility] mm 8:37 AM CDT [facility]AL [facility] Specimen Anatomical Collection Method / Collection Time Recei markus Time (Source) Location / Volume Laterality Blood BLOOD SPECIMEN / Venipuncture / 01/14/2022 8:25 2021 8:30 Unknown Unknown AM CDT AM CDT [address] HEMATOLOGY Performing Organization Address City/State/ZIP Code Phon e Number [facility] [address] [place] [address] [facility] LABORATORY GLUCOSE METER (01/14/2022 7:53 AM CDT)Only the most recent of2 resultswithin the time period is included. athologist Signature GLUCOSE METER 94 65 - 100 01/14/2022 [facility] mg/dL 7:54 AM CDT LAB[facility]ATORY[facility] LABORATORY Specimen Anatomical Collection Method Collection Time Receive d Time (Source) Location / / Volume Laterality Blood BLOOD SPECIMEN / 01/14/2022 7:53 AM 01/14 7:53 Unknown CDT AM CDT Dudley Toro MD CHEMISTRY Performing Organization Address City/State/ZIP Code Phon e Number [facility] [address] [place] [address] LAB[facility]ORY[facility] [address] LABORATORY SCAN-CARDIAC STRIP (01/13/2022 7:30 AM CDT) Narrative This result has an attachment that is no t available. Scanner OTHER SCAN-CARDIAC STRIP (01/13/2022 2:12 AM CDT) Narrative This result has an attachment that is no t available. Scanner OTHER SCAN-CARDIAC STRIP (01/12/2022 5:04 PM CDT) Narrative This result has an attachment that is no t available. Scanner OTHER TRANSFUSE RBC (NURSE COMMUNICATION ORDER) (01/12/2022 9:10 AM CDT) Specimen (Source) Anatomical Location Collection Method / Collectio n Time Received Time / Laterality Volume Blood BLOOD SPECIMEN / Unknown Verónica Sullivan MD NURSING BLOOD BANK TSH AM (01/12/2022 8:39 AM CDT) athologist Signature TSH 2.06 0.35 - 4.94 01/12/2022 [facility] uIU/mL 9:39 AM CDT LABORATORY-CENTR AL LABORATORY Specimen Anatomical Collection Method / Collection Time Recei markus Time (Source) Location / Volume Laterality Blood BLOOD SPECIMEN / Venipuncture / 01/12/2022 8:39 2021 8:52 Unknown Unknown AM CDT AM CDT Narrative [facility] LABORATORY-CENTRAL LABORAT ORY - 01/12/2022 9:39 AM CDT In Adults, TSH values between 5.00 and 10.00 uIU/ml do not necessarily indicate the presence of Hyp othyroidism. Correlation with clinical findings such as presence of goiter and/or Thyroperoxidase (TPO) Antibody ma y be helpful. For more information please refer to JORGE 20 04; 291: 228-238. Caroline Molina MD CHEMISTRY Performing Organization Address [facility] Phon e Number [facility] [address] [place] [phone] LABORATORY-CENTRAL 1999 LABORATORY (ABNORMAL) PROTIME-INR (01/12/2022 8:39 AM CDT)Only the most recent of3 results within the time period is included. athologist Signature INR 1.4 (H) <1.3 01/12/2022 [facility] 9:12 AM CDT LABORATORY-CENTRA [facility] LABORATORY PROTIME 16.3 (H) 12.0 - 13.8 01/12/2022 [facility] sec 9:12 AM CDT [facility] Specimen Anatomical Collection Method / Collection Time Recei markus Time (Source) Location / Volume Laterality Blood BLOOD SPECIMEN / Venipuncture / 01/12/2022 8:39 2021 8:52 Unknown Unknown AM CDT AM CDT Narrative [facility] LABORATORY-CENTRAL LABORAT ORY - 01/12/2022 9:12 AM CDT ?Therapeutic Range 2.0-3.0 for most anticoagulated patients 2.5-3.5 or 4.0 for high risk patients The INR is only used for patients on sta ble oral anticoagulant therapy. It makes no significant contribution to the diagnosis or treatment of patients whose Protime is prolonged f or other reasons. INR results are increased when heparin l evels exceed 1.0 U/mL, which corresponds to an aPTT >125 seconds if the patient is on UFH. Mable Kemp MD HEMATOLOGY Performing Organization Address City/[facility]/ZIP Code Phon e Number [facility] [address] [place] [id number] LABORATORY-[place] 1999 LABORATORY SCAN-CARDIAC STRIP (01/12/2022 8:30 AM CDT) Narrative This result has an attachment that is no t available. Scanner OTHER TRANSFUSE RBC (NURSE COMMUNICATION ORDER) (01/12/2022 5:59 AM CDT) Specimen (Source) Anatomical Location Collection Method / Collectio n Time Received Time / Laterality Volume Blood BLOOD SPECIMEN / Unknown Caroline Molina MD NURSING BLOOD BANK SCAN-CARDIAC STRIP (01/12/2022 4:07 AM CDT) Narrative This result has an attachment that is no t available. Scanner OTHER SODIUM,RANDOM URINE (01/12/2022 3:49 AM CDT) [facility] SODIUM,RANDOM 61 mmol/L 01/12/2022 [facility] URINE 5:25 AM CDT LABORATORY-CENTRA [facility] LABORATORY Specimen Anatomical Collection Method Collection Time Receive d Time (Source) Location / / Volume Laterality Urine URINE SPECIMEN / Non-Blood / 01/12/2022 3:49 AM 01/12 3:57 Unknown Unknown CDT AM CDT Caroline Molina MD URINE Performing Organization Address [facility] Phon e Number [facility] [address] [place] [phone] LABORATORY-CENTRAL 2000 LABORATORY Osmolality, urine TODAY (01/12/2022 3:49 AM CDT) [facility] OSMOLALITY,URI 364 50 - 1,400 01/12/2022 [facility] NE mOsmol/kg 4:21 AM CDT [facility] Specimen Anatomical Collection Method Collection Time Receive d Time (Source) Location / / Volume Laterality Urine URINE SPECIMEN / Non-Blood / 01/12/2022 3:49 AM 01/12 3:57 Unknown Unknown CDT AM CDT Caroline Molina MD URINE Performing Organization Address [facility] Phon e Number [facility] [address] [place] [phone] LABORATORY-CENTRAL 2000 LABORATORY RBC W/O TYPE & SCREEN (01/11/2022 11:22 PM CDT)Only the most recent of2 results within the time period is included. athologist [facility] QUANTITY 2 01/11/2022 [facility] 11:22 PM CDT LAB-CENTRAL LAB BLOOD BANK Specimen (Source) Anatomical Collection Method Collection Time Re ceived Time Location / / Volume Laterality Blood BLOOD SPECIMEN / 01/11/2022 11:04 Unknown PM CDT Caroline Molina MD BLOOD BANK Performing Organization Address [facility]/ZIP Code Phon e Number [facility] [employer] LAB-CENTRAL LAB [address] [place] [address] [phone] BLOOD BANK RED BLOOD CELLS EA UNIT (01/11/2022 11:20 PM CDT)Only the most recent of2 resultswithin the time period is included. Patholo gist Method Time Signature CROSSMATCH Compatible Compatible [facility] [employer] LAB-CENTRAL LAB BLOOD BANK PRODUCT BLOOD A Rh Negative [facility] [employer] LAB-CENTRAL LAB BLOOD BANK PRODUCT ID [id number] [facility] LAB-CENTRAL LAB BLOOD BANK PRODUCT STATUS Transfused [facility] [employer] LAB-CENTRAL LAB BLOOD BANK PRODUCT RBC -1 LR [facility] LAB-CENTRAL LAB BLOOD BANK PRODUCT CODE [id number] [employer] LAB-CENTRAL LAB BLOOD BANK ISSUE DATE/TIME 01/12/22 [facility] 02:52 [facility] LAB-CENTRAL LAB BLOOD BANK Specimen (Source) Anatomical Location Collection Method / Collectio n Time Received Time / Laterality Volume Verónica Sullivan MD BLOOD BANK Performing Organization Address [facility]/ZIP Code Phon e Number [facility] [employer] LAB-CENTRAL LAB [address] [place] [address] [phone] BLOOD BANK (ABNORMAL) HEMOGLOBIN (01/11/2022 11:14 PM CDT)Only the most recent of2 results within the time period is included. P athologist Signature HEMOGLOBIN 6.6 (LL) 13.5 - 01/11/2022 [facility] [employer] 17.5 g/dL 11:40 PM CDT LABORATORY-CENT RAL LABORATORY MCV 94 80 - 100 01/11/2022 [facility] [employer] fL 11:40 PM CDT LABORATORY-CENT RAL LABORATORY Specimen Anatomical Collection Method / Collection Time Recei markus Time (Source) Location / Volume Laterality Blood BLOOD SPECIMEN / Venipuncture / 01/11/2022 11:14 01/11 Unknown Unknown PM CDT 11:24 PM CDT Narrative [facility] [employer] LABORATORY-CENTRAL LABORAT ORY - 01/11/2022 11:40 PM CDT Nurse to release order after blood trans fusion complete. Verónica Sullivan MD HEMATOLOGY Performing Organization Address City/[facility]/ZIP Code [facility]on e Number [facility] [address] [place] [phone] LABORATORY-CENTRAL 2000 LABORATORY CWS PATH REVIEW HEMATOLOGY (01/11/2022 10:05 PM CDT) [facility] Method Time Signature PATH COMMENT Reviewed by 01/12/2022 MARITZA CH Smooth Milad 4:03 PM CDT LABORATORY-CE Deniz on NTRAL 01/12/2022 LABORATORY Specimen Anatomical Collection Method / Collection Time Recei markus Time (Source) Location / Volume Laterality Blood BLOOD SPECIMEN / Venipuncture / 01/11/2022 10:05 01/11 Unknown Unknown PM CDT 10:20 PM CDT Caroline Molina MD LABORATORY Performing Organization Address City/State/ZIP Code Phon e Number [facility] [address] [place], [place] [address] [address] LABORATORY-CENTRAL 1999 LABORATORY SCAN-CARDIAC STRIP (01/11/2022 5:57 PM CDT) Narrative This result has an attachment that is no t available. Scanner OTHER (ABNORMAL) ACTIVATED CLOTTING TIME [id number] ACT (01/11/2022 12:45 PM CDT)Only the most recent of7 resultswithin the time period is included. athologist Signature ACTIVATED 143 (H) 74 - 125 01/11/2022 [facility] [employer] CLOTTING TIME, sec 2:32 PM CDT LABORATORY-CE N POCT TRAL LABORATORY Specimen Anatomical Collection Method Collection Time Receive d Time (Source) Location / / Volume Laterality Blood BLOOD SPECIMEN / 01/11/2022 12:45 022 2:32 Unknown PM CDT PM CDT Dudley Toro MD HEMATOLOGY Performing Organization Address City/State/ZIP Code Phon e Number [facility] [address] [place] [address] LABORATORY-CENTRAL 1999 LABORATORY (ABNORMAL) COMPREHENSIVE BLOOD GAS ARTERIAL (01/11/2022 11:38 AM CDT) [facility] Method Time Signature PH, ARTERIAL 7.36 7.35 - 7.45 01/11/2022 [facility] [employer] 11:38 AM LABORATORY-CE CDT NTRAL LABORATORY PCO2, ARTERIAL 40 35 - 48 01/11/2022 [facility] mmHg 11:38 AM LABORATORY-CE CDT NTRGA LABORATORY PO2, ARTERIAL 169 (H) 83 - 108 01/11/2022 [facility] mmHg 11:38 AM LABORATORY-CE CDT NTRAL LABORATORY HCO3, ARTERIAL 23 21 - 28 01/11/2022 [facility] mmol/L 11:38 AM LABORATORY-CE CDT N[facility]GA LABORATORY BASE EXCESS, -2.7 (L) -2.0 - 3.0 01/11/2022 [facility] ARTERIAL 11:38 AM LABORATORY-CE CDT NTRGA LABORATORY O2 SATURATION, >100 (H) 94 - 98 % 01/11/2022 [facility] ARTERIAL 11:38 AM LABORATORY-CE CDT NTRGA LABORATORY PATIENT 37.0 Degrees C 01/11/2022 [facility] TEMPERATURE 11:38 AM LABORATORY-CE CDT NTRGA LABORATORY COLLECTION SITE ARTERIAL 01/11/2022 [facility] LINE 11:38 AM LABORATORY-CE CDT NTRGA LABORATORY HEMOGLOBIN,BLOO 12.3 (L) 13.5 - 17.5 01/11/2022 [facility] TH D GAS g/dL 11:38 AM LABORATORY-CE CDT N[facility] LABORATORY SODIUM 127 (L) 135 - 145 01/11/2022 [facility] mmol/L 11:38 AM LABORATORY-CE CDT NTRGA LABORATORY POTASSIUM 5.0 3.5 - 5.0 01/11/2022 [facility] mmol/L 11:38 AM LABORATORY-CE CDT NTRGA LABORATORY CHLORIDE 101 98 - 110 01/11/2022 [facility] mmol/L 11:38 AM LABORATORY-CE CDT NTRGA LABORATORY Specimen Anatomical Collection Method Collection Time Receive d Time (Source) Location / / Volume Laterality Blood BLOOD SPECIMEN / 01/11/2022 11:38 022 Unknown AM CDT 11:39 AM CDT Dudley Toro MD CHEMISTRY Performing Organization Address City/State/ZIP Code Phon e Number [facility] [address] [place] [address] LABORATORY-CENTRAL 2000 LABORATORY CVC TRIPLE LUMEN, HCHG CATH INFUSION PR100, HCHG ANES US GUIDE FOR VASC ACCESS, HCHG TUBING PR1, HCHG KIT MONITORING PR5, HCHG TUBING PR5, HCHG DRSG PR5, HCHG DRSG PR1, HCHG KIT PR5 (01/11/2022 7:56 AMCDT) Sydney Henson MD - 01/11/2022 7:56 AM CDT Sydney Leigh MD ? 01/11/2022 ??8:14 AM CVC Patient location during procedure: OR Start time: 01/11/2022 7:56 AM End time: 01/11/2022 8:06 AM Indications: CVP monitoring and vascular access Completed: patient identified, risks and benefits discussed, consent obtained, hand hygiene performed, gown, full-body drape, chloraprep used and completely dried prior to procedure, cap, mask, gloves and timeout performed CVC Patient position: supine Laterality: right Site: internal jugular Ultrasound guidance: live ultrasound, ul trasound permanent image saved and sterile gel and probe cover used in ultr asound-guided central venous catheter insertion. Needle localization (ultrasound): no pat hologic findings, selected vessel patent, anatomically normal and needle v isualized entering selected vessel. Confirmation: wire visualized in vein by ultrasound Port Insertion: all ports aspirated and all ports flushed easily Securement/Dressing: Biopatch applied, l ine sutured in place, dressing applied Catheter Catheter size: 7 Fr Catheter length: 20 cm Number of Lumens: triple lumenno Electronically signed by Sydney Leigh MD ? Sydney Leigh MD ANESTHESIA PX NOTE ORDERABLE S HCHG TUBE PR1, HCHG STYLET PR1 (01/11/2022 7:55 AM CDT) Narrative TrennepohlGodfreyna, RAILCAR SWITCHMAN - 01/11/2022 7: 55 AM CDT TrennepohlGodfreyna, RAILCAR SWITCHMAN ? 01/11/2022 ??7:55 AM Procedure: ETT Patient location during procedure: OR ETT Properties Mask Ventilation: oral airway Final Technique: direct laryngoscopy Type: straight Location: oral Cuffed: yes Tube Size: 7.5 mm Stylet: yes Laryngoscope Blade: Cronin Blade Size: 2 Cormack-Lehane Grade View: 1 Insertion Attempts: 1 Placement Verification: auscultation and end tidal CO2 Assessment: pharynx clear, atraumatic an d dentition unchanged Secured at: 23 Measured From: lips Difficulty: 0 (not difficult) Electronically signed by Anand Tavarez nna, RAILCAR SWITCHMAN ? Sydney Leigh MD ANESTHESIA PX NOTE ORDERABLE S HCHG CATH PR5, HCHG ANES ARTERIAL CATH FOR SAMPLE MONITOR TRANS, HCHG TUBING PR1, HCHG TUBING PR20, HCHG DRSG PR1, HCHG DRSG PR5, HCHG KIT PR5 (01/11/2022 7:01 AM CDT) Narrative Sydney Leigh MD - 01/11/2022 7:01 AM CDT Sydney Leigh MD ? 01/11/2022 ??7:21 AM Arterial Line Patient location during procedure: pre-o p Start time: 01/11/2022 7:01 AM End time: 01/11/2022 7:05 AM Indications: lab sampling and monitoring Staffing Preanesthetic Checklist Completed: patient identified, risks and benefits discussed, consent obtained and timeout performed Arterial Line Patient position: supine. Comment:. Laterality: right Site: radial Local Anesthetic: lidocaine 1%. Securement/dressing: Biopatch applied, d ressing applied. Comment: Needle Catheter size: 20 G. Comment:. Catheter length: 4.5 cm. Comment: Events: no complications. Electronically signed by Sydney Leigh MD ? Sydney Leigh MD ANESTHESIA PX NOTE ORDERABLE S HOLTER MONITOR - frequent daily symptoms. Specify duration 24 or 48 hours (01/10/2022) Narrative This result has an attachment that is no t available. David Giron MD CARDIAC SERVICES ORD COVID 19 (01/07/2022 10:08 AM CDT) Analysis Performed At Patho logist Time Signature COVID 19 Negative Negative [facility]/07/2022 [facility] 9:51 PM CDT LABORATORY-[facility] TRAL LABORATORY Comment: All PCR tests are subject to fa lse negative result due to variability in viral load and collection technique. A n egative result does not rule out a SARS-CoV-2 infection. Clinical correlation required . Specimen Anatomical Location / Collection Method Collection Bhaskar e Received Time (Source) Laterality / Volume Other SPECIMEN FROM Non-Blood / 01/07/2022 10:08 01/07/2022 1:39 NASOPHARYNGEAL Unknown AM CDT PM CDT STRUCTURE / Unknown Narrative [facility] LABORATORY-CENTRAL LABORAT ORY - 01/07/2022 9:51 PM CDT This test has been authorized by FDA und er an Emergency Use Authorization (EUA). This test is only authorized for the duration of time the declaration that circumstances exist justifying the authorization of th e emergency use of in vitro diagnostic tests for detection of SARS-CoV-2 virus and/or diagnosis of COVID-19 infection under section 564(b)(1) of the Act, 21 U.S.C. 360bbb-3(b)(1), unless the authorization is terminated or revoked sooner. Dudley Toro MD MICROBIOLOGY Performing Organization Address City/State/ZIP Code Phon e Number [facility] [address] [place] [address] LABORATORY-CENTRAL 2000 LABORATORY COVID 19 COLLECTION (01/07/2022 10:08 AM CDT) [facility] Method Time Signature TESTING [facility] 01/07/2022 [facility] LABORATORY Laboratory 1:39 PM CDT LABORATORY-CE NTRAL LABORATORY Comment: Specimen submitted to [facility] Laboratory for testing. Specimen Anatomical Location / Collection Method Collection Bhaskar e Received Time (Source) Laterality / Volume Other SPECIMEN FROM Non-Blood / 01/07/2022 10:08 01/07/2022 NASOPHARYNGEAL Unknown AM CDT 10:23 AM CDT STRUCTURE / Unknown Dudley Toro MD SEND OUTS Performing Organization Address City/[facility]/ZIP Code Phon e Number [facility] [address] [place] [address] LABORATORY-CENTRAL 2000 LABORATORY EKG 12 LEAD (01/05/2022 2:13 PM CDT)Only the most recent of2 resultswithin the time period is included. Narrative This result has an attachment that is no t available. Monico Modi MD EKG ORD OH READING EKG - NO CHARGE, COMP ONLY (01/05/2022 2:11 PM CDT) Monico Modi MD PB - PROVIDER READINGS US VEIN MAPPING UPPER EXTREMITY BILATERAL (12/31/2021 4:43 PM CDT) Anatomical Region Laterality Modality ARM L, ARM R Ultrasound Specimen (Source) Anatomical Collection Method Collection Time Re ceived Time Location / / Volume Laterality 12/31/2021 4:43 PM CDT Narrative 12/31/2021 5:33 PM CDT VASCULAR ULTRASOUND REPORT ANISH COUGHLIN Accession#: ?? [id number] : ?1940 Study Date: ?? 12/31 4:43:44 PM Age: ?81 years ?? Tech: ? BHM Gender: M ?Referring MD: GRAEME TORO Site: [facility] Study performed: ?Vein mapping, ( bilateral). Indication for Study: vein mapping for b ypass Study Quality: ?Good TECHNIQUE: Lower/upper extremity veins were examine d with duplex ultrasound, color-flow and spectral Doppler per exam protocol. Vein compressibility by transducer pressure was used to evaluate presence/absence of DVT/SVT. Venous flow and competence was evaluated by flow augmentation maneuvers per exam protocol. Insufficiency studies were performed with the patient in upright position, with vein diameters measure d in mm, and reflux was measured in seco nds by caliper method. IMPRESSION: 1. Right cephalic and basilic veins are patent and compressible with diameters as listed below. 2. Left cephalic and basilic veins are patent and compressible with diameters as listed below. COMPARISON: No prior study available for comparison. MEASUREMENTS: Vein Mapping + + +-- ---+ + + ?RIGHT ARM ?RIGHT ARM ? UPPER ?LEFT ARM ? LEFT ARM ? Cephalic vein (mm) Basilic vein (mm) ?Basilic vein ?? Cephalic vein (mm) ?(mm) ? + + +-- ---+ + + ? 4.50 ? Prox ? 4.80 ? + + +-- ---+ + + ? 4.60 ?3.80 ? Mid ?3.50 ? 4.40 ? + + +-- ---+ + + ? 4.30 ?3.60 ? Dist ?3.80 ? 5.30 ? + + +-- ---+ + + ? 4.30 ?3.00 ? Elbow ?2.30 ? 4.50 ? + + +-- ---+ + + + + +-- ---+ + + ?RIGHT ARM ?RIGHT ARM ? LOWER ?LEFT ARM ? LEFT ARM ? Cephalic vein (mm) Basilic vein (mm) ?Basilic vein ?? Cephalic vein (mm) ?(mm) ? + + +-- ---+ + + ? 2.30 ?1.70 ? Prox ?2.40 ? 3.00 ? + + +-- ---+ + + ? 2.90 ?1.70 ? Mid ?2.50 ? 3.10 ? + + +-- ---+ + + ? 2.50 ?1.70 ? Dist ?2.30 ? 2.80 ? + + +-- ---+ + + Peewee Stanley MD. Electronically signed on 12/31/2021 5:33: 43 PM This study was performed and interpreted by a service accredited by the Intersocietal Accreditation Commission (ICA/Vascular), [email or web address]/vascular Report generated by [employer] (ChatAnd). ??Final ?? Procedure Note Peewee Stanley MD - 01/01/20 22 VASCULAR ULTRASOUND REPORT ANISH COUGHLIN : 1940 Study Date: 12/31/2021 4: 43:44 PM Age: 81 years Tech: [facility] Gender: M Referring MD: DUDLEY TORO Site: [facility] Study performed: Vein mapping, (meche zhou). Indication for Study: vein mapping for b ypass Study Quality: Good TECHNIQUE: Lower/upper extremity veins were examine d with duplex ultrasound, color-flow and spectral Doppler per exam protocol. Vein compressibility by transducer pressure was used to evaluate presence/absence of DVT/SVT. Venous flow and competence was evaluated by flow augmentation maneuvers per exam protocol. Insufficiency studies were performed with the patient in upright position, with vein diameters measured in mm, and reflux was measured in seconds by caliper method. IMPRESSION: 1. Right cephalic and basilic veins are patent and compressible with diameters as listed below. 2. Left cephalic and basilic veins are patent and compressible with diameters as listed below. COMPARISON: No prior study available for comparison. MEASUREMENTS: Vein Mapping + + +-- ---+ + + RIGHT ARM RIGHT ARM UPPER LEFT ARM LEFT ARM Cephalic vein (mm) Basilic vein (mm) Basilic vein Cephalic vein (mm) (mm) + + +-- ---+ + + 4.50 Prox 4.80 + + +-- ---+ + + 4.60 3.80 Mid 3.50 4.40 + + +-- ---+ + + 4.30 3.60 Dist 3.80 5.30 + + +-- ---+ + + 4.30 3.00 Elbow 2.30 4.50 + + +-- ---+ + + + + +-- ---+ + + RIGHT ARM RIGHT ARM LOWER LEFT ARM LEFT ARM Cephalic vein (mm) Basilic vein (mm) Basilic vein Cephalic vein (mm) (mm) + + +-- ---+ + + 2.30 1.70 Prox 2.40 3.00 + + +-- ---+ + + 2.90 1.70 Mid 2.50 3.10 + + +-- ---+ + + 2.50 1.70 Dist 2.30 2.80 + + +-- ---+ + + Peewee Stanley MD. Electronically signed on 12/31/2021 5:33: 43 PM This study was performed and interpreted by a service accredited by the Intersocietal Accreditation Commission (ICA/Vascular), [email or web address]/vascular Report generated by [employer] ([employer]And). Final Dudley Toro MD US NUCLEATED RED BLOOD CELLS PERCENT OF BLOOD LEUKOCYTES (12/31/2021 3:52 PM CDT)Only the most recent of2 resultswithin the time period is included. P athologist Signature NRBC 0.0 % 12/31/2021 [facility] 4:28 PM CDT LABORATORY-CENTR AL LABORATORY ABS NRBC 0.0 thou /cu mm 12/31/2021 [facility] 4:28 PM CDT LABORATORY-CENTR AL LABORATORY Specimen Anatomical Collection Method Collection Time Receive d Time (Source) Location / / Volume Laterality Blood BLOOD SPECIMEN / Butterfly / 12/31/2021 3:52 PM 12/31 4:03 Unknown Unknown CDT PM CDT Dudley Toro MD LABORATORY Performing Organization Address City/State/ZIP Code Phon e Number [facility] [address] [place] [address] LABORATORY-CENTRAL 2000 LABORATORY US VEIN MAPPING LOWER EXTREMITY BILATERAL (12/31/2021 3:08 PM CDT) Anatomical Region Laterality Modality LEGS, LEG L, LEG R Ultrasound Specimen (Source) Anatomical Collection Method Collection Time Re ceived Time Location / / Volume Laterality 12/31/2021 3:49 PM CDT Narrative 12/31/2021 5:33 PM CDT VASCULAR ULTRASOUND REPORT ANISH COUGHLIN Accession#: ?? [id number] : ?1940 Study Date: ?? 12/31 3:49:26 PM Age: ?81 years ?? Tech: ? BHM Gender: M ?Referring MD: GRAEME TORO Site: [facility] Study performed: ?Vein mapping, ( bilateral). Indication for study: PAD Study Quality: ?Good TECHNIQUE: Lower/upper extremity veins were examine d with duplex ultrasound, color-flow and spectral Doppler per exam protocol. Vein compressibility by transducer pressure was used to evaluate presence/absence of DVT/SVT. Venous flow and competence was evaluated by flow augmentation maneuvers per exam protocol. Insufficiency studies were performed with the patient in upright position, with vein diameters measured in mm, and reflux. IMPRESSION: 1. Vein mapping of the right lower extr emity reveals an absent greater saphenous vein consistent with patient's history of coronary bypass surgery. There is a small saphenous vein that is patent with very small caliper vessel 1.5mm - 2.0mm. 2. Vein mapping of the left lower extre mity reveals a greater saphenous vein and small saphenous vein that is patent. GSV diameters range from 2.0mm - 2.6mm. SSV range from 1.6 mm to 2.0 mm. COMPARISON: No prior study available for comparison. MEASUREMENTS: = Can't evaluate Vein Map +--------+--------+ +------ --+--------+ RIGHT ?LEFT ? +--------+--------+ +------ --+--------+ Compress Diameter ? Compress Diameter ?(mm) ?(mm) ?? +--------+--------+ +------ --+--------+ ??yes ? SFJ ?yes ?6.3 ?? +--------+--------+ +------ --+--------+ ? GSV PROX THIG H ??yes ?2.3 ?? +--------+--------+ +------ --+--------+ ? GSV MID THIGH ??yes ?2.2 ?? +--------+--------+ +------ --+--------+ ? GSV DIST THIG H ??yes ?2.2 ?? +--------+--------+ +------ --+--------+ ? GSV KNEE ?yes ?2.2 ?? +--------+--------+ +------ --+--------+ ? GSV UPPER DILCIA F ??yes ?2.0 ?? +--------+--------+ +------ --+--------+ ? GSV MID CALF ??yes ?2.6 ?? +--------+--------+ +------ --+--------+ ? GSV LOW CALF ??yes ?2.5 ?? +--------+--------+ +------ --+--------+ ??yes ?1.8 ? SPJ ?yes ?1.7 ?? +--------+--------+ +------ --+--------+ ??yes ?1.8 ?? SSV PRX CALF ? ?yes ?1.6 ?? +--------+--------+ +------ --+--------+ ??yes ?1.5 ?? SSV MID CALF ? ?yes ?2.0 ?? +--------+--------+ +------ --+--------+ ??yes ?2.0 ?? SSV DIST CALF ? ?yes ?1.9 ?? +--------+--------+ +------ --+--------+ = Can't evaluate Peewee Stanley MD. Electronically signed on 12/31/2021 5:33: 31 PM This study was performed and interpreted by a service accredited by the Intersocietal Accreditation Commission (IAC/Vascular), www.intersocietal.org/vascular Report generated by Chat& (ChatAnd). ??Final ?? Procedure Note Peewee Stanley MD - 01/01/20 22 VASCULAR ULTRASOUND REPORT ANISH COUGHLIN : 1940 Study Date: 12/31/2021 3: 49:26 PM Age: 81 years Tech: [facility] Gender: M Referring MD: DUDLEY TORO Site: [facility] Study performed: Vein mapping, (meche zhou). Indication for study: PAD Study Quality: Good TECHNIQUE: Lower/upper extremity veins were examine d with duplex ultrasound, color-flow and spectral Doppler per exam protocol. Vein compressibility by transducer pressure was used to evaluate presence/absence of DVT/SVT. Venous flow and competence was evaluated by flow augmentation maneuvers per exam protocol. Insufficiency studies were performed with the patient in upright position, with vein diameters measured in mm, and reflux. IMPRESSION: 1. Vein mapping of the right lower extr emity reveals an absent greater saphenous vein consistent with patient's history of coronary bypass surgery. There is a small saphenous vein that is patent with very small caliper vessel 1.5mm - 2.0mm. 2. Vein mapping of the left lower extre mity reveals a greater saphenous vein and small saphenous vein that is patent. GSV diameters range from 2.0mm - 2.6mm. SSV range from 1.6 mm to 2.0 mm. COMPARISON: No prior study available for comparison. MEASUREMENTS: = Can't evaluate Vein Map +--------+--------+ +------ --+--------+ RIGHT LEFT +--------+--------+ +------ --+--------+ Compress Diameter Compress Diameter (mm) (mm) +--------+--------+ +------ --+--------+ yes SFJ yes 6.3 +--------+--------+ +------ --+--------+ GSV PROX THIGH yes 2.3 +--------+--------+ +------ --+--------+ GSV MID THIGH yes 2.2 +--------+--------+ +------ --+--------+ GSV DIST THIGH yes 2.2 +--------+--------+ +------ --+--------+ GSV KNEE yes 2.2 +--------+--------+ +------ --+--------+ GSV UPPER CALF yes 2.0 +--------+--------+ +------ --+--------+ GSV MID CALF yes 2.6 +--------+--------+ +------ --+--------+ GSV LOW CALF yes 2.5 +--------+--------+ +------ --+--------+ yes 1.8 SPJ yes 1.7 +--------+--------+ +------ --+--------+ yes 1.8 SSV PRX CALF yes 1.6 +--------+--------+ +------ --+--------+ yes 1.5 SSV MID CALF yes 2.0 +--------+--------+ +------ --+--------+ yes 2.0 SSV DIST CALF yes 1.9 +--------+--------+ +------ --+--------+ = Can't evaluate Peewee Stanley MD. Electronically signed on 12/31/2021 5:33: 31 PM This study was performed and interpreted by a service accredited by the Intersocietal Accreditation Commission (IAC/Vascular), www.intersocietal.org/vascular Report generated by Chat& (ChatAnd). Final Dudley Toro MD US from Last 3 Months Insurance Payer Benefit Plan / Subscriber ID Effective Phone Address T ype Group Dates MEDICARE PART MEDICARE PART B [id number] 2004-Prese A TTN: CLAIMS B - HB USE HB ONLY nt [address] [place] [address] MEDICARE PART MEDICARE PART A [id number] 2004-Prese A TTN: CLAIMS A - HB USE HB ONLY nt [address] [place] [address] MEDICARE - PB MEDICARE PB [id number] 2004-Prese ATTN: CLAIMS USE ONLY ONLY nt [address] [place] [address] MEDICARE PPS HC MEDICARE PPS [id number] 2004-Prese [address] [place] [address] BLUE CROSS BLUE CROSS OF [id number] 2016-Prese [address] [place] [address] Advance Directives Documents on File Type Date Recorded 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 on Healthcare Directive 08/04/2009 HEALTH CARE DIRECTIVE, [facility], 07/2009 Latest Code Status on File Code Status Date Activated Date Inactivated Comments Full Code 01/11/2022 1:12 PM 01/14/2022 2:43 PM Code Status Discussion: Reviewed Preferences Full Code 01/11/2022 6:02 AM 01/11/2022 1:12 PM Code Status Discussion: Unable to Assess Preferences, Provid er to review later Full Code 02/18/2020 9:53 AM 02/19/2020 1:18 PM Code Status Discussion: Not Discussed Full Code 06/30/2019 12:54 PM 07/02/2019 6:17 PM Full Code 08/18/2017 12:02 PM 08/18/2017 10:58 PM Care Teams Archivist Political History Relationship Specialty Start Date End Date Monico Modi MD PCP - General Family Practice 11/10/16 [address] [place] [address] Yong Siddiqi MD Gastroenterology 05/20/11 [address] [facility] [place] [address] Dillan Eubanks, Cardiovascular Disease 05/05 11/13 [facility] 02/15/[address] [address]
--- OUTSIDE RECORDS SUMMARY | 2022-03-13 18:48 | XMS_ITS | Encounter Summary ---
:1940 Author Care Team Providers Name Role Phone Monico Modi MD Primary Care Provider [phone] Reason for Visit Nurse Visit - Catheter Removal Assessment and Plan 1. Retention of urine Patient went into retention after an an giogram and was not able to self cath. He caths 6-7 times a day, for the last 10 y ears. Removed colon and used own cath to make sure he was able- did fine. Discussion Note: None recorded.Patient educational handouts: No information available. Plan of Care Patient Instructions Needs to follow up with PF Reminders Provider Appointments None recorded. ? ? Lab None recorded. ? ? Referral None recorded. ? ? Procedures None recorded. ? ? Surgeries None recorded. ? ? Imaging None recorded. ? ? Medications Name Start Date ? ? coloplast ref 614 fr14 male ? PERFORM SELF-CATHETERIZATION UP TO 5 TI MES A DAY NEEDED FOR URINARY RETENTION ketoconazole 2 % shampoo ? WASH TO AFFECTED AREA ON EAR AND CHEST 2-3 TIMES WEEKLY WEEKLY IN THE SHOWER LATHER AND LET SIT FOR SEVERAL MINUTES BEFORE RINSING nitrofurantoin monohydrate/macrocrystals 100 mg capsul e ? TAKE ONE CAPSULE BY MOUTH TWICE DAILY FOR 5 DAYS triamcinolone acetonide 0.1 % topical cream ? WHEN ITCHY APPLY TO AFFECTED AREA ON EA RS AND CHEST 1-2X DAILY FOR 2 WEEKS AT A TIME REPEAT NEEDED FOR FLARES Medications Administered None recorded. Vitals None recorded. Results Lab Results None recorded. Allergies None recorded. Problems None recorded. Procedures None recorded. Vaccine List None recorded. Social History None recorded. Functional Status Unknown. Past Encounters 12/20/2021 Retention of Urine Sulaiman Romano MD: [id number] [facility] [place] [address], Ph. History of Present Illness None recorded. Review of Systems None recorded. Physical Exam None recorded.
--- OUTSIDE RECORDS SUMMARY | 2022-03-13 18:48 | XMS_ITS | Encounter Summary ---
:1940 Author Organization [facility] Address [address] [place] [address] Care Team Providers Name Role Phone Izzy Chen APRN, C.N.P. Primary Care Provider [phone] Encounter Details Date Type Department Care Team Description 02/04/2022 Clinical Communication Department of Kyra Kelley APRN, C.N. P. Medicine in [address] [place] [address] [address] [facility] [address] [place], [place] [phone] (Work) [phone] Social History Tobacco Use Types Packs/Day Years Used Date Smoking Tobacco: Former Sex Assigned at Date Recorded Not on file documented as of this encounter Miscellaneous Notes Telephone Encounter - Kyra Kelley APRN, C.N.P. - 02/04/2022 7:55 AM CDT Images from the original note were not included. Lab results reviewed from [facility] outside lab facility. WBC now normal. Hgb improved at 11.2. Plt normal at 230. Sodium much improved at 128. This is where he trended in the hospital. Continue fluid restriction, liberalizing salt in diet. Urine osmolality also ordered yesterday. We await those results. Continue plans as outlined in my visit note from 02/04/22. Electronically signed by: Kyra Kelley APRN, C.N.P. 02/04/22 8:38 AM CDT documented in this encounter Plan of Treatment Not on filedocumented as of this encounter Visit Diagnoses Not on filedocumented in this encounter Care Teams Statue Maker Relationship Specialty Start Date End Date Izzy Chen APRN, C.N.P. PCP - General Internal Medicine 01/18/22 02/22/[address] [place] [address] Snehal BlaineSAMMI xie [phone] documented as of this encounter
--- OUTSIDE RECORDS SUMMARY | 2022-03-13 18:48 | XMS_ITS | Clinical Summary ---
:1940 Author Organization [facility] Address [address] [place] [address] Care Team Providers Name Role Phone Elsewhere, Pcp Primary Care Provider Unavailable Source Comments Patient records contain information from all sites at [facility]. For routine questions regarding patient records, call [phone] during business hours, M-F 8:00 AM - 5:00 PM Central Time. Record requests for emergency care only can be directed to [phone] at any time.[facility] Allergies Active Allergy Reactions Severity Noted Date Comments Amitriptyline Other (see comments) 01/30/2022 Unknow n Ciprofloxacin Other (see comments) 01/30/2022 Unknow n Citalopram Analogues Other (see comments) 01/30/2022 Unknown Coq10 (Liposomal Ubiquinol) Other (see comments) 01/30 Unknown Erythromycin Other (see comments) 01/30/2022 Unknown Hydrochlorothiazide Other (see comments) 01/30/2022 Unknown Lactose Other (see comments) 01/30/2022 Unknown Penicillins Other (see comments) 01/30/2022 Unknown Rosuvastatin Other (see comments) 01/30/2022 Unknown Sulindac Other (see comments) 01/30/2022 Unknown Ezetimibe Other (see comments) 01/30/2022 Unknown Medications Medication Sig Dispensed Refills Start Date End Date Status acetaminophen Take 650 mg by 0 A ctive (TYLENOL) 325 mg mouth every 4 tablet (four) hours as needed. amiodarone Take 200 mg by 0 Acti ve (PACERONE) 200 mg mouth 2 (two) tablet times a day. aspirin [address] Take 81 mg by 0 Active tablet mouth daily. atorvastatin Take 80 mg by 0 Act raj (LIPITOR) 80 mg mouth daily. tablet cloNIDine Take 0.1 mg by 0 Activ e (CATAPRES) 0.1 mg mouth. Take 1 tablet tab for blood pressure greater than 170/90. May repeat in 1 hour. tamsulosin (FLOMAX) Take 0.4 mg by 0 Active 0.4 mg 24 hr mouth daily. capsule gabapentin Take 600 mg by 0 Acti ve (NEURONTIN) 300 mg mouth 2 (two) capsule times a day. magnesium oxide Take by mouth 0 Active (MAG-OX) 400 mg Medrol Dose Pack (241.3 mg scheduling ONLY. magnesium) tablet polyethylene glycol Take 17 g by 0 Active (MIRALAX) 17 mouth 2 (two) gram/dose oral times a day as powder needed. And scheduled daily on Monday multivitamin-minera Take 1 tablet by 0 Active ls-lutein (CENTURY mouth daily. MATURE) tablet nitroglycerin Place 0.4 mg 0 Act raj (NITROSTAT) 0.4 mg under the tongue SL tablet every 5 (five) minutes as needed. omeprazole Take 40 mg by 0 Activ e (PriLOSEC) [address] mouth every capsule morning before breakfast. clopidogreL Take 75 mg by 0 Acti ve (PLAVIX) 75 mg mouth daily. tablet pramipexole Take 0.5 mg by 0 Act raj (MIRAPEX) 0.5 mg mouth at tablet bedtime. simethicone Take 125 mg by 0 Act raj (MYLICON,GAS-X) 125 mouth every 6 mg capsule (six) hours as needed. timoloL (BETIMOL) Administer 1 0 Active 0.5 % ophthalmic drop into both solution eyes daily. carvediloL (COREG) Take 6.25 mg by 0 11/24/2021 Active 12.5 mg tablet mouth 2 (two) times a day. oxyCODONE-acetamino Take 1 tablet by 10 tablet 0 01/17/2022 Discontinued phen (PERCOCET) mouth every 4 2 5-325 mg per (four) hours as tabletIndications: needed for pain Prolonged Acute Indication: Pain/Traumatic Prolonged Acute Injury Pain/Traumatic Injury. Do not exceed 8 tablets per day. Active Problems Problem Noted Date Hypotension Orthostatic 02/03/2022 Overview: Following hospital stay for PAD Lower extremities wrapped with Jitendra wraps Last Assessment & Plan: He does take Flomax daily which we could try holding with continued issues of orthostasis. Also discussed that he often is straining to have a bowel movement. Will try scheduling his MiraLax 3 times a week in order to avoid any vagal hypotension Debility 02/03/2022 Last Assessment & Plan: Formatting of th is note might be different from the original. He continues with PT/OT [facility]. Patient and family initially wanted to discharge next week. Therapy does not believe he is safe to return home. We also do not believe he is safe to return home. He can only ambulate 20 ft. That i s limited due to orthostasis. He is also hyponatremic. We have planned a reason to skill him for nursing and therapy. Nursing spoke with the patient's daughter and they are amenable to staying longer. Peripheral Arterial Disease 01/30/2022 Overview: FEMORAL ENDARTERECTOMY Left s/p Left femoral endarterectomy, R SFA s tent 11-23-11, s/p Right femoral endarterectomy, right external iliac stent Left SFA stent 05-24-2012 Femoral popliteal bypass left leg 2021 at [facility] Clopidogrel lifelong, taking aspirin and statin Last Assessment & Plan: Reports occasional calf pain that is imp roved improved. 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 ? ? ANGIOPLASTY 09/21/2007 Stent to RCA Graft ? ? ANGIOPLASTY 05/05/2004 Stent X3 Prox through MId SVG to RCA ? ? ANGIOPLASTY 2001, 02/11 Stent Left Iliac, balloon angioplasty L popliteal ? ? CABG 08/24/1995 CAB X3, PHILLIP to LAD, SVG to First Laura, & RCA and endarectomy to RCA PA (myocardial infarction) (HC) 09/2006 & 2003 Small Non Q-Wave 2006, ? ? NSTEMI (non-ST elevated myocardial infarction) Taking statin and aspirin. Continues on Plavix. Has p.r.n. nitroglycerin sublingual Taking amiodarone for what appears to be some sort of ventricular arrhythmia history Pacemaker Cardiac Status Post 01/30/2022 Overview: PACEMAKER PLACEMENT 02/18/2020 dual chamber PPM Last Assessment & Plan: Follows with [facility] . Carotid Artery Surgery Status Post 01/30/2022 Overview: Formatting of this note is dif ferent from the original. ? ? right carotid endarterectomy 2018 Benign Prostatic Hyperplasia Hypertrophy With Obstruct ion 01/30/2022 Overview: Status post TURP Self caths 2 to 7 times daily Taking Flomax 0.4 mg daily Last Assessment & Plan: Of note has had orthostatic hypotension and could consider holding Flomax. Glaucoma 01/30/2022 Last Assessment & Plan: Formatting of th is note might be different from the original. Timolol eyedrops. 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 Hyperlipidemia 01/30/2022 Overview: Formatting of this note is dif ferent from the original. He is on atorvastatin in the setting of coronary artery disease and peripheral arterial disease. Lab Results Component Value Date CHOL 111 08/24/2021 Lab Results Component Value Date HDL 39 (L) 08/24/2021 Lab Results Component Value Date LDLCALC 58 09/17/2013 Lab Results Component Value Date TRIG 86 08/24/2021 Lab Results Component Value Date TTLCHOLHDLRT 2.85 08/24/2021 Restless Leg Syndrome 01/30/2022 Overview: Continues on home dose of Mirapex Last Assessment & Plan: Continue current dose of pramipexole. Gastroesophageal Reflux Disease Without Esophagitis Overview: Omeprazole 40 mg daily Last Assessment & Plan: Does report being gassy and uses simethi cone p.r.n. Anemia 01/30/2022 Overview: Hgb 11.4 on 02/09/22 Last Assessment & Plan: Lab Results Component Value Date WBC 3.8 (L) 02/01/2022 HGB 10.8 (L) 02/01/2022 HCT 31.1 (L) 02/01/2022 MCV 93 02/01/2022 PLT 270 02/01/2022 Hgb stable. 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 While hospitalized, was felt secondary t o SIADH and had fluid restriction of 2 L. Lab Results Component Value Date NA 127 (L) 01/11/2022 Last Assessment & Plan: Sodium this week was 121, down 130 in [facility]. Cognitively is intact. No falls. He is struggling with orthostasis as outlined under that appropriate diagnoses code. We will ensure 1.5 L fluid restr iction. We will allow a general diet and encourage sodium in his diet. We will recheck sodium next week. I will add on a urine osmolality. If sodium does not improve, will add salt tablets. Resolved Problems Problem Noted Date Resolved Date Chronic Kidney Disease Stage 3 Glomerular Filtration Rate 30 05/20/2011 02/17/2022 To 59 Encounters Date Type Specialty Care Team Description 02/20/2022 Orders Only Izzy Chen V., PHOTOGRAPHIC PLATE MAKER, C.N.P. 02/18/2022 Clinical Community Allie, Communication Internal Kyra Mullen, Medicine PHOTOGRAPHIC PLATE MAKER, C.N.P. 02/17/2022 External Outreach [facility] Harp Peripheral Arterial Disease (HCC) (Primary Dx); Internal Breanna, Inappropriate A ntidiuretic Hormone Syndrome (HCC); Medicine Jenni B, Hypotension Ort hostatic; PHOTOGRAPHIC PLATE MAKER, C.N.P. Coronary Artery Disease Without Angina Pectoris; Gastroesophagea l Reflux Disease Without Esophagitis; Benign Prostati c Hyperplasia Hypertrophy With Obstruction; Hyperlipidemia; Restless Leg Sy ndrome; Pacemaker Cardi ac Status Post; Hypertensive He art And Chronic Kidney Disease Without Heart Failure And With Stage 2 (Mild) Chronic Kidney Disease; Anemia 02/04/2022 Clinical [facility] Internal Kyra Mullen, Medicine ANNETTE, C.N.P. 02/03/2022 External Outreach [facility], Hypertensi ve Heart And Chronic Kidney Disease Without Heart Failure And With Stage 2 (Mild) Chronic Kidney Disease (Primary Dx); Internal Kyra Mullen, Inappropriate A ntidiuretic Hormone Syndrome (HCC); Medicine ANNETTE, C.N.P. Hypotension Ort hostatic; Peripheral [place] rial Disease (HCC); Anemia; Restless Leg Sy ndrome; Debility 02/01/2022 Clinical [facility] Internal Kyra Mullen, Medicine ANNETTE, C.N.P. 01/26/2022 Orders Only [facility] Internal Tonya thorne Medicine M.D. 01/19/2022 External Outreach [facility] Peripher al Arterial Disease (HCC) (Primary Dx); Internal Tonya thorne, Coronary [place] ry Disease Without Angina Pectoris; Medicine Darío Pacemaker Cardi ac Status Post; Carotid Artery Surgery Status Post; Glaucoma; Restless Leg Sy ndrome; Hypertensive He art And Chronic Kidney Disease Without Heart Failure And With Stage 2 (Mild) Chronic Kidney Disease; Hyperlipidemia; Benign Prostati c Hyperplasia Hypertrophy With Obstruction; Gastroesophagea l Reflux Disease Without Esophagitis; Anemia; Hyponatremia; Infectious Dise ase Personal History; [facility]; [facility] Certification Exam 01/18/2022 - Emergency Dizziness (Prim angel Dx) 01/20/2022 01/17/2022 Orders Only [facility] Tonya Booth Medicine M.D. from Last 3 Months Immunizations Name Administration Dates Next Due Pneumococcal, Unspecified 05/05/2011 Social History Tobacco Use Types Packs/Day Years Used Date Smoking Tobacco: Former Sex Assigned at Date Recorded Not on file Last Filed Vital Signs Vital Sign Reading Time Taken Comments Blood Pressure 111/54 02/17/2022 11:07 AM CDT Pulse 60 02/17/2022 11:07 AM CDT Temperature 36 ??C (96.8 ??F) 02/17/2022 11:07 AM CDT Respiratory Rate 16 02/17/2022 11:07 AM CDT Oxygen Saturation 97% 02/17/2022 11:07 AM CDT Inhaled Oxygen Concentration - - Weight 72.8 kg (160 lb 9.6 oz) 02/17/2022 11:07 AM CDT Height 167.6 cm (5' 6) 01/19/2022 5:42 PM CDT Body Mass Index 25.92 01/19/2022 5:42 PM CDT Plan of Treatment Health Maintenance Due Date Last Done Comments Depression Screening (Annual 06/05/2021 PHQ-2) Fall Risk Screen (Annual) 06/05/2021 COVID-19 Vaccine (5 - Booster for 02/04/2022 12/10/2021, , Moderna series) 08/27/2020, Additional history exists Influenza Vaccine (#1) 2022 03/11/2021, 02/25/2020, 05/06/2019, Additional history exists Office Visit for Blood Pressure 02/17/2023 02/17/2022 Check / Re-check DTaP,Tdap,and Td Vaccines (2 - Td 07/07/2024 07/07/2014, or Tdap) Pneumococcal vaccine (65+ years) Completed 07/07/2014, 06/2010, 04/04/2006, Additional history exists Zoster Vaccines Completed 04/14/2018, 12/18/2017, 04/24/2007 Medical Devices Implanted Type Area Oil Well Logger Device Shelf Model / Identifier Expiration Serial / Date Lot Stent Icast Covered [id number] - [id number] [id number] Respiratory Other/Legacy - Atrium Implanted: Qty: 1 on 10/04/2013 Stent See Implant Description Description: Device Oil Well Logger - Atriu m Medical. Body Location - Other. Vascular. Device Status Text - [id number]. Stent Protege Everflex 8 X 20 X 120 - [id number] [id number] Vascular G raft Other/Legacy - See Implant ev3 Implanted: Qty: 1 on 10/04/2013 Description Description: Device Oil Well Logger - EV3. Body Location - Other. Vascular. Device Status Text - [id number]. Insurance Payer Benefit Plan / Subscriber ID Effective Phone Address T ype Group Dates MEDICARE MEDICARE A AND [id number] 2004-Prese [address] [place] [address] [facility] BCBS [place] [id number] 2016-[place] [address] [place] [address] Indemnity BLUE SHI[place] [address] Care Teams Solid Tire Tuber Machine Operator Relationship Specialty Start Date End Date Elsewhere, Pcp PCP - General Internal Medicine 02/23/22
--- OUTSIDE RECORDS SUMMARY | 2022-03-13 18:48 | XMS_ITS | Encounter Summary ---
:1940 Author Organization [facility] Address [address] [place] [address] Care Team Providers Name Role Phone Izzy Chen APRN, C.N.P. Primary Care Provider [phone] Reason for Visit Appointment Request (Routine) - Closed Specialty Diagnoses / Procedures Referred By Contact Refer red To Contact [facility] Facility Referral ID Status Reason Start Date Expiration Date Visits Requ ested Visits Authorized [id number] Closed 01/27/2022 01/27/2023 1 1 Encounter Details Date Type Department Care Team Description 02/17/2022 External [facility] in [facility] era Arterial Disease (HCC) (Primary Dx); Outreach [facility] Jenni Cota APRN, [employer] te Antidiuretic Hormone Syndrome (HCC); [place] [address] C.N.P. 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 Heart Failure And With Stage 2 (Mild) Chronic Kidney Disease; (Fax) Anemia Social History Tobacco Use Types Packs/Day Years Used Date Smoking Tobacco: Former Sex Assigned at Date Recorded Not on file documented as of this encounter Last Filed Vital Signs Vital Sign Reading Time Taken Comments Blood Pressure 111/54 02/17/2022 11:07 AM CDT Pulse 60 02/17/2022 11:07 AM CDT Temperature 36 ??C (96.8 ??F) 02/17/2022 11:07 AM CDT Respiratory Rate 16 02/17/2022 11:07 AM CDT Oxygen Saturation 97% 02/17/2022 11:07 AM CDT Inhaled Oxygen Concentration - - Weight 72.8 kg (160 lb 9.6 oz) 02/17/2022 11:07 AM CDT Height - - Body Mass Index 25.92 01/19/2022 5:42 PM CDT documented in this encounter H&P Notes Jenni Bro APRN, C.N.P. - 02/17/2022 10:00 AM CDT CHIEF COMPLAINT/REASON FOR VISIT [facility] dismissal visit Referral Source Consult conducted 02/17/22 by Jenni Carlos APRN, C.N.P. in [facility] to the patient in [facility] in person. SUBJECTIVE HISTORY OF PRESENT ILLNESS Anish Velazquez is a 81 y.o. male who underwent rehab at [facility] starting January 17 following a hospital stay at [facility] for peripheral arterial disease from January 11 to for critical limb ischemia of the left lower extremity for which he underwent left femoral bypass with her 1st cephalic vein on 01/11/2022 and required 2 units of red blood cells for hemoglobin dropped from 8.5-6.7 postoperatively. Hemoglobin 8.3 at discharge from hospital. He is lying on discharging to home next week on February 22 and will follow-up with his primary care provider through [facility] in [facility] which needs to be scheduled as well as the scheduled vascular follow-up on the . The following portions of the patient's history were reviewed and updated as appropriate: allergies,current medications, medical history, social history, surgical history and problem list. OBJECTIVE VITAL SIGNS Vitals: 02/17/22 1107 BP: (!) 111/54 Pulse: 60 Resp: 16 Temp: 36 ??C SpO2: 97% Weight: 72.8 kg Wt Readings from Last 6 Encounters: 02/17/22 72.8 kg 01/19/22 76.8 kg 08/15/13 78 kg REVIEW OF SYSTEMS GENERAL: Denies fevers, chills, or sweats. Has had some weight loss as above. SKIN: Denies bruising,bleeding, rashes, or changes in moles. HEENT: Denies headaches, vision changes, double vision, hearing changes, ringing in the ears, nasal drainage, sinus pressure, sore throat, dental pain, or troubleswallowing. CARDIOVASCULAR: Denies chest pain, palpitations, or edema. RESPIRATORY: Denies dyspnea, wheezing, or cough. GASTROINTESTINAL: Does report feeling gassy and uses simethicone. Also states he has constipation and has been using MiraLax occasionally. Reports he took this about 3 times a week at home. Does admit to straining to have a bowel movement. GENITOURINARY: Denies dysuria, frequency, or urgency. MUSCULOSKELETAL: Reports some discomfort in the bilateral calves which has improved with therapy. NEUROLOGIC: Denies dizziness, syncope, or paresthesias. PSYCHOSOCIAL: No depression, anxiety or behavioral concerns. PHYSICAL EXAMINATION GENERAL: 81 y.o. year old in no apparent distress. Awake, alert, age appropriate. SKIN: Warm, pink, and dry. No rashes, excoriations, open areas. Healing incision to the left upper extremity and left lower extremity. CARDIOVASCULAR: Regular rate and rhythm, S1, S2 with a grade 2-3/6 systolic murmur. RESPIRATORY: Lungs clear to auscultation in bilateral anterior and posterior chest with easy respirations. EXTREMITIES: Healing ecchymosis to the left thigh with 1 to 2+ left lower extremity edema, per his report this has improved tremendously. ASSESSMENT / PLAN Medications were reconciled with the senior care facility list. #1 Peripheral Arterial Disease (HCC) Overview: FEMORAL ENDARTERECTOMY Left s/p Left femoral endarterectomy, R SFA stent 11-23-11, s/p Right femoral endarterectomy, right external iliac stent Left SFA stent 05-24-2012 Femoral popliteal bypass left leg 01/11/2022 at [facility] Clopidogrel lifelong, taking aspirin and statin Assessment & Plan: Reports occasional calf pain that is improved improved. 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 Lab Results Component Value Date NA 127 (L) 01/11/2022 #3 Hypotension Orthostatic Overview: Following hospital stay for PAD Lower extremities wrapped with Jitendra wraps Assessment & Plan: He does take Flomax daily which we could try holding with continued issues of orthostasis. Also discussed that he often is straining to have a bowel movement. 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 Continues on Plavix. Has p.r.n. nitroglycerin sublingual Taking amiodarone for what appears to be some sort of ventricular arrhythmia history #5 Gastroesophageal Reflux Disease Without Esophagitis Overview: Omeprazole 40 mg daily Assessment & Plan: Does report being gassy and uses simethicone p.r.n. #6 Benign Prostatic Hyperplasia Hypertrophy With Obstruction Overview: Status post TURP Self caths 2 to 7 times daily Taking Flomax 0.4 mg daily Assessment & Plan: Of note has had orthostatic hypotension and could consider holding Flomax. #7 Hyperlipidemia Overview: He is on atorvastatin in the setting of coronary artery disease and peripheral arterial disease. 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 If the patient does in fact leave the home, the absences from the home are infrequent or for periods of relatively short duration and most often for the purpose of receiving medical treatment. Follow up: Schedule follow-up with primary care provider in the next 1-2 weeks, vascular appointment is scheduled for February 24. Medications provided for dismissal: Signed med list DME ordered: Wheelchair DME Medical Justification: Manual wheelchair A [id number] encounter was conducted on 02/17/22 by Jenni Carlos APRN, C.N.P. to evaluate Anish Velazquez for a manual wheelchair and accessories. Anish Velazquez does have a mobility limitation that prevents him from accomplishing one or more mobility related activities of daily living that include standing for long periods of time as well as ambulating longer distances in customary locations in the home. Leathas mobility limitations cannot be sufficiently resolved by the use of an appropriately fitted cane or walker secondary to peripheral arterial disease and coronary artery disease which limit mobility and endurance. Use of a manual wheelchair on a regular basis in the home will significantly improve ability to participate in MRADLs. Anish's home does have adequate access between the rooms, maneuvering space, and surfaces for the manual wheelchair. He or a caregiver is willing to use the wheelchair in the home. Anish will use the wheelchair inside and outside the home. The type of manual wheelchair ordered is standard, up to 250 lb/114 kg patient. Anish does have sufficient upper extremity function and other physical and mental capabilities needed to safely self-propel the manual wheelchair in the home during a typical day. He or a caregiver is willing to use the wheelchair in the home. Accessories have not been ordered. Most recent height: 01/19/22 : 167.6 cm Most recent weight: 02/17/22 : 72.8 kg For appointment details refer to your Patient Appointment Guide. documented in this encounter Miscellaneous Notes Assessment & Plan Note - Jenni Bro APRN, C.N.P. - 02/17/2022 11:00 AM CDTAssociated Problem(s): Benign Prostatic Hyperplasia Hypertrophy With Obstruction Of note has had orthostatic hypotension and could consider holding Flomax. Assessment & Plan Note - Jenni Bro APRN, C.N.P. - 02/17/2022 10:59 AM CDTAssociated Problem(s): Gastroesophageal Reflux Disease Without Esophagitis Does report being gassy and uses simethicone p.r.n. Assessment & Plan Note - Jenni Bro APRN, C.N.P. - 02/17/2022 10:58 AM CDTAssociated Problem(s): Hypotension Orthostatic He does take Flomax daily which we could try holding with continued issues of orthostasis. Also discussed that he often is straining to have a bowel movement. Will try scheduling his MiraLax 3 times a week in order to avoid any vagal hypotension Assessment & Plan Note - Jenni Bro APRN, C.N.P. - 02/17/2022 10:56 AM CDTAssociated Problem(s): Peripheral Arterial Disease (HCC) Reports occasional calf pain that is improved improved. Has follow-up with vascular on February 24 documented in this encounter Plan of Treatment Not on filedocumented as of this encounter Visit Diagnoses Diagnosis Peripheral Arterial Disease (HCC) - Prim angel Inappropriate Antidiuretic Hormone Syndr ome (HCC) Hypotension Orthostatic Coronary Artery Disease Without Angina P ectoris Gastroesophageal Reflux Disease Without Esophagitis Benign Prostatic Hyperplasia Hypertrophy With Obstruction Hyperlipidemia Restless Leg Syndrome Pacemaker Cardiac Status Post Hypertensive Heart And Chronic Kidney Di sease Without Heart Failure And With Stage 2 (Mild) Chronic Kidney Disease Anemia documented in this encounter Care Teams Product Safety Compliance Leader Relationship Specialty Start Date End Date Izzy Chen V., ANNETTE, C.N.P. PCP - General Internal Medicine 01/18/22 02/22/[address] [place] [phone] documented as of this encounter
--- OUTSIDE RECORDS SUMMARY | 2022-03-13 18:48 | XMS_ITS | Encounter Summary ---
:1940 Author Organization [facility] Address [address] [place] [id number] Care Team Providers Name Role Phone Izzy Chen APRN C.N.P. Primary Care Provider [phone] Encounter Details Date Type Department Care Team Description 02/18/2022 Clinical Communication Division of [facility] Kyra Kelley Internal Medicine, ANNETTE Mullen, C.N. [facility] in [address] [place] [address] [place] [phone] [place], [place] [phone] (Work) [phone] Social History Tobacco Use Types Packs/Day Years Used Date Smoking Tobacco: Former Sex Assigned at Date Recorded Not on file documented as of this encounter Miscellaneous Notes Telephone Encounter - Kyra Kelley APRN, C.N.P. - 02/18/2022 7:53 AM CDT Images from the original note were not included. Outside labs reviewed. Hyponatremia stable. 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 Continue current plans. Electronically signed by: Kyra Kelley APRN, C.N.P. 02/18/22 7:53 AM CDT documented in this encounter Plan of Treatment Not on filedocumented as of this encounter Visit Diagnoses Not on filedocumented in this encounter Care Teams Store Detective Relationship Specialty Start Date End Date Izzy Chen APRN, C.N.P. PCP - General Internal Medicine 01/18/22 02/22/[address] [place] [address] Snehal David, SAMMI [phone] documented as of this encounter
--- OUTSIDE RECORDS SUMMARY | 2022-03-13 18:48 | XMS_ITS | Encounter Summary ---
:1940 Author Organization [facility] Address [address] [place] [address] Care Team Providers Name Role Phone Izzy Chen APRN, C.N.P. Primary Care Provider Reason for Referral Specialty Diagnoses / Procedures Referred By Contact Refer red To Contact Izzy Chen AP RN, C.N.P. [facility] [address] [place] [address] Referral ID Status Reason Start Date Expiration Date Visits Requ ested Visits Authorized Encounter Details Date Type Department Care Team Description 02/20/2022 [facility] Iz[facility] Chen APRN, C.N.P. [address] [place], [place] [phone] (Wo rk) Social History Tobacco Use Types Packs/Day Years Used Date Smoking Tobacco: Former Sex Assigned at Date Recorded Not on file documented as of this encounter Plan of Treatment Scheduled Referrals Name Type Priority Associated Order Schedule Diagnoses Covid immunization Outpatient Referral Routine Ex pected: office visit 02/20/2022 Immuno/Booster (Approximate) , Expires: 02/20/2023 documented as of this encounter Visit Diagnoses Not on filedocumented in this encounter Care Teams Quality Analyst/Technical Writer Relationship Specialty Start Date End Date Izzy Chen APRN, C.N.P. PCP - General Internal Medicine 01/18/22 02/22/22 [address] [place] [address] documented as of this encounter
--- OUTSIDE RECORDS SUMMARY | 2022-03-13 18:49 | XMS_ITS | Encounter Summary ---
:1940 Author Organization [facility] Address [address] [place] [address] Care Team Providers Name Role Phone Izzy Chen APRN, C.NGladys Primary Care Provider [phone] Reason for Visit Reason Comments Routine [facility] Visit SNF admission Appointment Request (Routine) - Closed Specialty Diagnoses / Procedures Referred By Contact Refer red To Contact Senior Care Facility Referral ID Status Reason Start Date Expiration Date Visits Requ ested Visits Authorized [id number] Closed 01/18/2022 01/18/2023 1 1 Encounter Details Date Type Department Care Team Description 01/19/2022 External Outreach [facility] in [facility] Per ipheral Arterial Disease (HCC) (Primary Dx); [facility] enzinski, Coronary Artery Disease Without Angina Pectoris; [address] Castaneda Pacemaker Cardiac Status Post; [address] Carotid Artery Surgery Statu s Post; [place], [place] St Glaucoma; [id number] [place], [place] Restless Leg Syndrome; [phone] Hypertensive Heart And Chronic Kidney Di sease Without Heart Failure And With Stage 2 (Mild) Chronic Kidney Disease; [phone] Hyperlipidemia; (Work) Benign Prostatic Hyperplasia Hypertrophy With Obstruction; [phone] Gastroesophagea l Reflux Disease Without Esophagitis; (Fax) Anemia; Hyponatremia; Infectious Dise ase Personal History; [facility]; [facility] Certification Exam Social History Tobacco Use Types Packs/Day Years Used Date Smoking Tobacco: Former Sex Assigned at Date Recorded Not on file documented as of this encounter Last Filed Vital Signs Vital Sign Reading Time Taken Comments Blood Pressure 133/50 01/19/2022 5:42 PM CDT Pulse 64 01/19/2022 5:42 PM CDT Temperature 36.1 ??C (96.9 ??F) 01/19/2022 5:42 PM CDT Respiratory Rate 16 01/19/2022 5:42 PM CDT Oxygen Saturation 95% 01/19/2022 5:42 PM CDT Room ai r Inhaled Oxygen Concentration - - Weight 76.8 kg (169 lb 6.4 oz) 01/19/2022 5:42 PM CDT Height 167.6 cm (5' 6) 01/19/2022 5:42 PM CDT Body Mass Index 27.34 01/19/2022 5:42 PM CDT documented in this encounter Patient Instructions Patient InstructionsFrTonya Elias M.D. - 01/19/2022 3:00 PM CDT Please obtain CBC, BMP on 02/01DOB: 1940 ORDERS and INSTRUCTIONS: There are no discontinued medications. Orders Placed This Encounter Basic Metabolic Panel Standing Status: Future Standing Expiration Date: 05/02/2023 Order Specific Question: Region: Answer: [facility] [[id number]] CBC with Differential, Blood Standing Status: Future Standing Expiration Date: 05/02/2023 Order Specific Question: Region: Answer: [facility] [[id number]] Electronically signed by: Tonya Dozier M.D. 01/30/22 6:55 PM CDT documented in this encounter Progress Notes Tonya Dozier M.D. - 01/19/2022 3:00 PM CDT CHIEF COMPLAINT / REASON FOR VISIT [facility] Admission Visit Visit Type: In Person: Face to Face SUBJECTIVE HISTORY OF PRESENT ILLNESS Obtained from Patient and Nursing: Living situation prior to admission: Home Primary care provider: [facility] Anish Velazquez was admitted to [facility] on 01/14/2022 after a stay at [facility]. Was admitted there on 01/11 for left femoral to PT bypass with reversed cephalic vein on 01/11/2022. Postoperative course was complicated by drop in hemoglobin from 8.5 to 6.7. He was transfused 2 units with discharge hemoglobin 8.3. Blood pressures were low and carvedilol and lisinopril were held. He was seen in the emergency department at [facility] on 01/18 with increasing ecchymosis to the left upper leg and scrotum. Hemoglobin 8.1. Patient's vascular surgeon was contacted and recommended discharge back to SNF with follow-up with vascular surgery as scheduled. Since then, he has felt well. He has pain in his leg and left arm harvest site, which is improving. Diagnosis Overview 1. Anemia 2. Benign Prostatic Hyperplasia Hypertrophy With Obstruction Status post TURP Self caths 2 to 7 times daily 3. Carotid Artery Surgery Status Post right carotid endarterectomy 2017 4. Coronary Artery Disease Without Angina Pectoris ANGIOPLASTY 09/21/2007 Stent to RCA Graft ANGIOPLASTY 05/05/2004 Stent X3 Prox through MId SVG to RCA ANGIOPLASTY 2001, 02/11 Stent Left Iliac, balloon angioplasty L popliteal CABG 08/24/1995 CAB X3, PHILLIP to LAD, SVG to First Laura, & RCA and endarectomy to RCA DC (myocardial infarction) (HC) 09/2006 & 2003 Small Non Q-Wave 2007, NSTEMI (non-ST elevated myocardial infarction) 5. Gastroesophageal Reflux Disease Without Esophagitis 6. Glaucoma 7. Hyperlipidemia He is on atorvastatin in the setting of coronary artery disease and peripheral arterial disease. 8. 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 Carvedilol, lisinopril 9. 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 10. Pacemaker Cardiac Status Post PACEMAKER PLACEMENT 02/18/2020 dual chamber PPM 11. Peripheral Arterial Disease (HCC) - Primary FEMORAL ENDARTERECTOMY Left s/p Left femoral endarterectomy, R SFA stent 11-23-11, s/p Right femoral endarterectomy, right external iliac stent Left SFA stent 05-24-2012 Femoral popliteal bypass left leg 01/11/[address] [facility] Clopidogrel lifelong 12. Restless Leg Syndrome I reviewed EPIC notes as well as any facility-provided information (if applicable), lab/test results, and images/imaging reports. The following portions of the patient's history were reviewed and updated as appropriate: allergies,current medications, medical history, social history, surgical history and problem list. REVIEW OF SYSTEMS Complete review of systems was performed, as allowable by patient's cognitive status, and incorporating collateral history if applicable. Relevant positives are noted elsewhere in this note, otherwise negative. Eating: Poor appetite. Eating about half at meals Diet: Cardiac diet, regular texture, regular consistency Pain: Left groin and left arm pain Mobility: Assist of 1 to transfer and assist of 1 with 2 wheeled walker to ambulate. Skin concerns: Surgical incisions left upper arm, left lower leg, left groin Falls at facility: No falls Continue activity: Physical therapy, occupational therapy Behavior/mood concerns: No concerns ADL status: Assist of 1 dressing, partial assist grooming, partial assist oral cares Vision, hearing or dentition concerns. Glasses, bilateral hearing aids Bladder: Self catheterization Bowel: Continent OBJECTIVE Vitals: 01/19/22 1742 BP: (!) 133/50 Pulse: 64 Temp: 36.1 ??C Resp: 16 Height: 167.6 cm Weight: 76.8 kg SpO2: 95% PHYSICAL EXAM GENERAL: Patient is alert and oriented. Patient is a good historian. NECK: Without adenopathy. HEART: Regular rate and rhythm. LUNGS: Clear without wheeze crackle or rhonchus. ABDOMEN: Normal bowel sounds. EXTREMITIES: Normal without edema. SKIN: Surgical incision left upper arm, left groin, left lower leg. They are healing well. There is significant bruising in the left groin extending to the scrotum. ASSESSMENT / PLAN #1 Peripheral Arterial Disease (HCC) Assessment & Plan: Wound care, careful monitoring, pain management. Follow-up with vascular surgery as scheduled. #2 Coronary Artery Disease Without Angina Pectoris #3 Pacemaker Cardiac Status Post Assessment & Plan: Follows with [facility]. #4 Carotid Artery Surgery Status Post #5 Glaucoma Assessment & Plan: Timolol eyedrops. #6 Restless Leg Syndrome Assessment & Plan: Continue current dose of pramipexole. 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 #10 Gastroesophageal Reflux Disease Without Esophagitis #11 Anemia Assessment & Plan: Follow hemoglobins. Recommendation is for transfusion less than 7. Orders: - CBC with Differential, Blood; Future; Expected date: 02/01/2022 #12 Hyponatremia Assessment & Plan: Follow sodiums. - Basic Metabolic Panel; Future; Expected date: 02/01/2022 #13 Infectious Disease Personal History Tested negative for COVID-19 on 01/08/2022.Patient will be tested for COVID-19 according to the prevalence in the community and in the facility in accordance with [facility] guidelines. #14 Advanced Care Planning This is anticipated to be a short-term custodial stay for rehabilitation, wound care, pain management. Plans to return home when ready. #15 [facility] Stay Certification Exam Current comorbidities, ADL need/level of debility requires skilled care/therapy. Medications and labs all reviewed and appropriate related to comorbidities, unless otherwise indicated. Physician order sheet signed. Continue wound care, pain management, physical therapy, occupational therapy, nutrition intervention, skin protection, and fall prevention. PATIENT EDUCATION Ready to learn, no apparent learning barriers were identified; learning preferences include listening. Explained diagnosis and treatment plan; patient/child/caregiver expressed understanding of the content. Time based billing: Yes, I spent a total of 50 minutes, > 50% in counseling and coordination of care including: , prognosis, risk factor reduction. , and treatment recommendations documented in this encounter Miscellaneous Notes Assessment & Plan Note - Tonya Dozier M.D. - 01/30/2022 6:34 PM CDTAssociated Problem(s): Inappropriate Antidiuretic Hormone Syndrome (HCC) Follow sodiums. Assessment & Plan Note - Tonya Dozier M.D. - 01/30/2022 6:29 PM CDTAssociated Problem(s): Glaucoma Timolol eyedrops. Assessment & Plan Note - Tonya Dozier M.D. - 01/30/2022 6:29 PM CDTAssociated Problem(s): Anemia Follow hemoglobins. Recommendation is for transfusion less than 7. Assessment & Plan Note - Tonya Dozier M.D. - 01/30/2022 6:28 PM CDTAssociated Problem(s): Benign Prostatic Hyperplasia Hypertrophy With Obstruction He has been self cathing long-term although did have Lopez catheter while hospitalized. Assessment & Plan Note - Tonya Dozier M.D. - 01/30/2022 6:24 PM CDTAssociated Problem(s): Pacemaker Cardiac Status Post Follows with [facility]. Assessment & Plan Note - Tonya Dozier M.D. - 01/30/2022 6:23 PM CDTAssociated Problem(s): Restless Leg Syndrome Continue current dose of pramipexole. Assessment & Plan Note - Tonya Dozier M.D. - 01/30/2022 6:23 PM CDTAssociated Problem(s): Peripheral Arterial Disease (HCC) Wound care, careful monitoring, pain management. Follow-up with vascular surgery as scheduled. 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 PCP - General Internal Medicine 01/18/22 02/22/[address] [place], [place] [address] [id number] documented as of this encounter
--- OUTSIDE RECORDS SUMMARY | 2022-03-13 18:49 | XMS_ITS ---
:1940 Author Care Team Providers Name Role Phone CONNOR MIKE MD Primary Care Provider [phone] Allergies None recorded. Medications Name Status Start [...] 12/20/2021 Retention of Urine Sulaiman Romano MD: [address] [place] [phone], Ph. Social History None recorded. Vaccine List None recorded. Plan of Care Patient Instructions Needs to follow up with PF Reminders Provider Appointments None recorded. ? ? Lab None recorded. ? ? Referral None recorded. ? ? Procedures None recorded. ? ? Surgeries None recorded. ? ? Imaging None recorded. ? ? Vitals None recorded.
--- OUTSIDE RECORDS SUMMARY | 2022-03-13 18:49 | XMS_ITS | Encounter Summary ---
:[address] [facility] Address [address] [place] [address] Care Team Providers Name Role Phone Unavailable Primary Care Provider Unavailable Encounter Details Date Type Department Care Team Description 01/17/2022 Orders Only [facility] in [place], [place] [address] Nichelle Castaneda. [address] [place] [address] [place], [place] [phone] (Wo rk) Social History Tobacco Use Types Packs/Day Years Used Date Smoking Tobacco: Former Sex Assigned at Date Recorded Not on file documented as of this encounter Plan of Treatment Not on filedocumented as of this encounter Visit Diagnoses Not on filedocumented in this encounter
--- OUTSIDE RECORDS SUMMARY | 2022-03-13 18:49 | XMS_ITS | Encounter Summary ---
:1940 Author Organization [facility] Address [address] [place] [address] Care Team Providers Name Role Phone Unavailable Primary Care Provider Unavailable Encounter Details Date Type Department Care Team Description 09/27/2011 - Hospital Encounter [facility] [place] [facility] 09/30/2011 Caleb Burroughs M.D., M.A. [address] [facility], [facility] [address] [place] [address] Social History Tobacco Use Types Packs/Day Years Used Date Smoking Tobacco: Never Assessed Sex Assigned at Date Recorded Not on file documented as of this encounter Last Filed Vital Signs Vital Sign Reading Time Taken Comments Blood Pressure 126/57 09/30/2011 12:30 NIBP - Value fr om PM CDT [facility]. Pulse 59 09/30/2011 12:30 Value from Johanny tplus. PM CDT Temperature - - Respiratory Rate 18 09/30/2011 8:30 AM Value from Nahid hartplus. CDT Oxygen Saturation - - Inhaled Oxygen - - Concentration Weight 81.2 kg (179 lb 0.2 09/30/2011 4:00 AM Value fro m [facility]. oz) CDT Height - - Body Mass Index 27.45 09/27/2011 12:54 AM CDT documented in this encounter Plan of Treatment Not on filedocumented as of this encounter Procedures Procedure Name Priority Date/Time Associated Comments Diagnosis V&IRAD VASCULAR & Routine 09/29/2011 3:30 PM Resu lts for this INTERVENTION CDT procedure are i n the results section. ELECTROLYTE (CHEM 4) Routine 09/29/2011 4:30 AM R esults for this PANEL, S/P CDT procedure are i n the results section. PROTHROMBIN TIME Routine 09/29/2011 4:30 AM Resul ts for this (PT), P CDT procedure are i n the results section. CBC WITH Routine 09/29/2011 4:30 AM Results f or this DIFFERENTIAL, B CDT procedure ar e in the results section. ARTERIAL LOWER Routine 09/27/2011 10:27 EXTREMITY AM CDT US LOWER EXT ART Routine 09/26/2011 10:23 Results for this GRAFT PM CDT procedure are i n the results section. US EXTREMITY VEINS Routine 09/26/2011 10:23 Resul ts for this PM CDT procedure are i n the results section. DX LUMBAR SPINE 2-3 Routine 09/26/2011 9:10 PM Re sults for this VIEWS CDT procedure are i n the results section. documented in this encounter Results V&IRAD Vascular & Intervention (09/29/2011 3:30 PM CDT) Anatomical Region Laterality Modality N/A X-Ray Angiography Specimen (Source) Anatomical Collection Method Collection Time Re ceived Time Location / / Volume Laterality 09/29/2011 3:30 PM CDT Narrative 09/30/2011 11:10 AM CDT 29-Sep-2011 15:30:00 ??Exam: V&IRAD Vascular & Intervention Indications: bilateral lower extremity a ngiogram +/- intervention;severe below the knee stenosis ORIGINAL REPORT - 30-Sep-2011 11:10:00 PROCEDURE: Bilateral lower extremity art eriogram. SUMMARY: ASO. Severe bilateral hypogastr ic artery stenoses. Widely patent left external iliac artery stent. Severely diseased left common femoral artery and bilateral distal superficial femoral and popl iteal arteries. Two-vessel runoff via th e posterior tibial and peroneal arteries bilaterally. ?? TECHNIQUE: The left groin was prepped an d draped in the usual fashion. Under local anesthesia, the left common femoral artery was punctured and a 4-St Helenian sheath was placed. An Omni Flush catheter was u sed to obtain bilateral oblique views of the pelvis. The catheter was advanced over the aortic bifurcation into the right common femoral artery and a stepwise right lower extremity runoff series was per formed. Pullback pressure measurement de monstrated no resting gradient across the right iliac system. Catheter was withdrawn to the left external iliac artery level and then a stepwise left lower extrem ity runoff series was performed. Applian jcarlos were removed and hemostasis was achieved with manual compression. No immediate complications. 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 The right external iliac artery is mildly diseased. Self expanding stent throughout the left e xternal iliac artery is widely patent. T he hypogastric arteries are severely narrowed at their origins. ?? RIGHT LEG: There is moderate posterior p laque in the right common femoral artery and at the origin of the deep femoral artery. The deep femoral artery is widely patent thereafter. The superficial femora l artery has eccentric heavily calcified plaque in the region of the adductor canal. Similar plaque severely narrows the proximal popliteal artery. There is at least moderate narrowing at the popliteal trifurcation. The anterior tibial artery is occluded. Two-vessel runoff via the posterior tibial and peroneal arteries which are without significant narrowing. The dorsalis pedis artery is occluded. The plantar system is patent. ?? LEFT LEG: There is severe eccentric calc ified plaque narrowing the upper-mid common femoral artery and at the common femoral bifurcation. The deep femoral artery is without significant narrowing. The pagan perficial femoral artery has eccentric h eavily calcified coral reef-type plaque distally extending into the proximal popliteal artery causing severe narrowing. There is moderate to severe narrowing at t he popliteal trifurcation. The anterior tibial artery is occluded. Two-vessel runoff via the posterior tibial and peroneal arteries which are widely patent. Pedal vessels were poorly visualized but the plantar system appears patent and the do rsalis pedis artery is likely occluded. PREPROCEDURE: Patient seen, evaluated, h istory reviewed, and approvedfor sedation. Airway, heart and lung exam satisfactory for sedation. Discussed risks, benefits, alternatives for procedure, and/or se dation, and obtained informed consent. P atient understands information and questions answered. Immediately prior to starting the procedure, in the presence of the assisting personnel, procedural pause w as conducted to verify correct patient i dentity and verification of procedure to be performed, and as applicable, correct side and site, correct patient position, availability of implants, special equip ment, or special requirements, and all i mage and specimen identification data. Moderate sedation was administered by sedation nurse under my supervision. The roles and responsibilities of care team members, residents, and fellows were discussed. Electronically signed by: ?? Yee Phillips M.D. ??[phone] 30-Sep-2011 11:10 ?Chris Graham MD [phone] 30-Sep-2011 11:10 Procedure Note Dejuan Phillips M.D. - 09/02/2017Formatt ing of this note might be different from the original. 29-Sep-2011 15:30:00 Exam: V&IRAD Vascul ar & Intervention Indications: bilateral lower extremity a ngiogram +/- intervention;severe below the knee stenosis ORIGINAL REPORT - 30-Sep-2011 11:10:00 PROCEDURE: Bilateral lower extremity art eriogram. SUMMARY: ASO. Severe bilateral hypogastr ic artery stenoses. Widely patent left external iliac artery stent. Severely diseased left common femoral artery and bilateral distal superficial femoral and popliteal arteries. Two-vessel runoff via the posterior tibi al and peroneal arteries bilaterally. TECHNIQUE: The left groin was prepped an d draped in the usual fashion. Under local anesthesia, the left common femoral artery was punctured and a 4-St Helenian sheath was placed. An Omni Flush catheter was used to obtain bilateral oblique views of the pelvis. T he catheter was advanced over the aortic bifurcation into the right common femoral artery and a stepwise right lower extremity runoff series was performed. Pullback pressure measurement demonstrated no resting grad ient across the right iliac system. Catheter was withdrawn to the left external iliac artery level and then a stepwise left lower extremity runoff series was performed. Appliances were removed and hemostasis w as achieved with manual compression. No immediate complications. 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 The right external iliac artery is mildly diseased. Self expanding stent throughout the left external iliac artery is widely patent. The hypogastric arteries are severely narrowed at their origins. RIGHT LEG: There is moderate posterior p laque in the right common femoral artery and at the origin of the deep femoral artery. The deep femoral artery is widely patent thereafter. The superficial femoral artery has eccentric heavily calcified plaque in th e region of the adductor canal. Similar plaque severely narrows the proximal popliteal artery. There is at least moderate narrowing at the popliteal trifurcation. The anterior tibial artery is occluded. Two-vessel ru noff via the posterior tibial and peroneal arteries which are without significant narrowing. The dorsalis pedis artery is occluded. The plantar system is patent. LEFT LEG: There is severe eccentric calc ified plaque narrowing the upper-mid common femoral artery and at the common femoral bifurcation. The deep femoral artery is without significant narrowing. The superficial femoral artery has eccentric heavily yang cified coral reef-type plaque distally extending into the proximal popliteal artery causing severe narrowing. There is moderate to severe narrowing at the popliteal trifurcation. The anterior tibial artery is occluded. Two-vessel runoff via the posterior tibial and peroneal arteries which are widely patent. Pedal vessels were poorly visualized but the plantar system appears patent and the dorsalis pedis artery is likely occluded. PREPROCEDURE: Patient seen, evaluated, h istory reviewed, and approvedfor sedation. Airway, heart and lung exam satisfactory for sedation. Discussed risks, benefits, alternatives for procedure, and/or sedation, and obtained informed consent. Patient understands in formation and questions answered. Immediately prior to starting the procedure, in the presence of the assisting personnel, procedural pause was conducted to verify correct patient identity and verification of pro cedure to be performed, and as applicable, correct side and site, correct patient position, availability of implants, special equipment, or special requirements, and all image and specimen identification data. Moderate s edation was administered by sedation nurse under my supervision. The roles and responsibilities of care team members, residents, and fellows were discussed. Electronically signed by: Yee Phillips M.D. [phone] 30-Sep-2011 1 1:10 Chris Graham MD [phone] 30-Sep-2011 11:10 Caleb Osborne M.D., M.A. IMG IR PROCEDURES CBC with Differential (09/29/2011 4:30 AM CDT) [facility] Method Time Signature Hemoglobin 14.4 13.5 - [facility] 17.5 G/DL [facility] Hematocrit 42.9 38.8 - [facility] 50.0 % [facility] Erythrocytes 4.70 4.32 - [facility] 5.72 LABORATORIES - X10(12)/L [facility] MCV 91.3 81.2 - [facility] 95.[address] [facility] RBC Distrib Width 12.6 11.8 - [facility] 15.6 % [facility] Platelet Count 190 150 - 450 [facility] X10(9)/L [facility] Leukocytes 5.3 3.5 - [facility] 10.5 LABORATORIES - X10(9)/L [facility] Neutrophils 2.41 1.70 - [facility] 7.00 LABORATORIES - X10(9)/L [facility] Lymphocytes 2.18 0.90 - [facility] 2.90 LABORATORIES - X10(9)/L [facility] Monocytes 0.41 0.30 - [facility] 0.90 LABORATORIES - X10(9)/L [facility] Eosinophils 0.25 0.05 - [facility] 0.50 LABORATORIES - X10(9)/L [facility] Basophils 0.03 0.00 - [facility] 0.30 LABORATORIES - X10(9)/L [facility] Specimen Anatomical Collection Method Collection Time Receive d Time (Source) Location / / Volume Laterality 09/29/2011 4:30 AM 2 4:30 CDT AM CDT Caleb Osborne M.D., M.A. LAB BLOOD ADD-ON Performing Organization Address City/[facility] Code Phon e Number [facility]ORATORIES - [address] [place], [place] [address] [facility] (ABNORMAL) Electrolyte (Chem 4) Panel (09/29/2011 4:30 AM CDT) [facility] gist Method Time Signature Sodium, S 137 135 - 145 [facility] MMOL/L LABORATORIES - [facility] Potassium, S 4.4 3.6 - 5.2 [facility] MMOL/L LABORATORIES - [facility] Chloride, S 104 100 - 108 [facility] MMOL/L LABORATORIES - [facility] HX Bicarbonate, 26 22 - 29 [facility] P/S MMOL/L LABORATORIES - [facility] Creatinine 1.5 (H) 0.8 - 1.3 [facility] MG/DL LABORATORIES - [facility] BUN (Blood Urea 15 8 - 24 [facility] Nitrogen), S MG/DL LABORATORIES - [facility] Anion Gap 7 7 - 15 [facility]ATORIES - [facility] Glucose, S 92 70 - 140 [facility] MG/DL LABORATORIES - [facility] Specimen Anatomical Collection Method Collection Time Receive d Time (Source) Location / / Volume Laterality 09/29/2011 4:30 AM 2 4:30 CDT AM CDT Caleb Osborne M.D., M.A. LAB BLOOD ADD-ON Performing Organization Address City/State/[facility] Code Phon e Number [facility] - [address] [place] [id number] [facility] PT (Prothrombin Time) with INR (09/29/2011 4:30 AM CDT) Patholo gist Method Time Signature Prothrombin 12.0 9.5 - 13.8 [facility] Time, P [facility] LAB[facility]ATORIES [facility] INR 1.0 0.8 - 1.2 [facility] Specimen Anatomical Collection Method Collection Time Receive d Time (Source) Location / / Volume Laterality 09/29/2011 4:30 AM 2 4:30 CDT AM CDT Caleb Osborne M.D., M.A. LAB BLOOD ADD-ON Performing Organization Address City/State/ZIP Code Phon e Number [place] [phone] [facility] Arterial Lower Extremity (09/27/2011 10:27 AM CDT) Anatomical Region Laterality Modality Other Specimen (Source) Anatomical Collection Method Collection Time Re ceived Time Location / / Volume Laterality 09/27/2011 10:27 AM CDT Christian Barreto, B.Ch. CV CARDIAC CATH PROCEDURE S US LOWER EXT ART GRAFT (09/26/2011 10:23 PM CDT) Anatomical Region Laterality Modality Ultrasound Specimen (Source) Anatomical Collection Method Collection Time Re ceived Time Location / / Volume Laterality 09/26/2011 10:23 PM CDT Impressions 09/27/2011 10:00 AM CDT ?? 1. Diffuse atherosclerotic disease in gael th lower extremities with monophasic waveforms in the lower superficial femoral arteries, the popliteal, posterior tibial and dorsalis pedis arteries. 2. Focal increase in velocity in the lef t mid to distal superficial femoral artery consistent with hemodynamically significant stenosis. RIGHT: Diffuse atherosclerotic disease t hroughout the arteries of the right lower extremity. Normal triphasic waveforms in the right common femoral, profunda femoral and proximal superficial femoral art eries. Monophasic waveforms in the mid a nd distal superficial femoral artery, popliteal artery, posterior tibial and dorsalis pedis arteries at the ankle. No increase in velocities to suggest a focal hemodynamically significant stenosis. LEFT: Diffuse atherosclerotic disease th roughout the arteries of the left lower extremity. Triphasic waveforms in the left common femoral, left profunda femoral and proximal superficial femoral arteries . Increase in velocity from 55 cm/sec to 127 cm/sec in the mid to distal superficial femoral artery consistent with hemodynamically significant stenosis. Monophasic waveforms in the left popliteal, and left posterior tibial and dorsalis pedis arteries at the ankles. Electronically signed by: ?? Devi Hunter MD [phone] 26-Sep-2011 23:04 I have reviewed the films/images and agr ee with the above interpretation. Electronically signed by: ?? Jackson Greenwood ??Darío [phone] 27-Sep-2011 10:0 0 Narrative 09/27/2011 10:00 AM CDT 26-Sep-2011 22:23:00 ??Exam: US Lower Extrem Art-Graft Cmpl Indications: Bilateral lower extremity v eins and arteries, claudication and swelling of lower extremities ORIGINAL REPORT - 26-Sep-2011 23:04:00 US Lower Extremity Artery and/or Graft C omplete with color and spectral Doppler analysis: Procedure Note Diego Greenwood M.D. - 09/02/2017Forma tting of this note might be different from the original. 26-Sep-2011 22:23:00 Exam: US Lower Extr em Art-Graft Cmpl Indications: Bilateral lower extremity v eins and arteries, claudication and swelling of lower extremities ORIGINAL REPORT - 26-Sep-2011 23:04:00 US Lower Extremity Artery and/or Graft C omplete with color and spectral Doppler analysis: IMPRESSION: 1. Diffuse atherosclerotic disease in gael th lower extremities with monophasic waveforms in the lower superficial femoral arteries, the popliteal, posterior tibial and dorsalis pedis arteries. 2. Focal increase in velocity in the lef t mid to distal superficial femoral artery consistent with hemodynamically significant stenosis. RIGHT: Diffuse atherosclerotic disease t hroughout the arteries of the right lower extremity. Normal triphasic waveforms in the right common femoral, profunda femoral and proximal superficial femoral arteries. Monophasic waveforms in the mid and dist al superficial femoral artery, popliteal artery, posterior tibial and dorsalis pedis arteries at the ankle. No increase in velocities to suggest a focal hemodynamically significant stenosis. LEFT: Diffuse atherosclerotic disease th roughout the arteries of the left lower extremity. Triphasic waveforms in the left common femoral, left profunda femoral and proximal superficial femoral arteries. Increase in velocity from 55 cm/sec to 127 cm/sec in the mid to distal superficial femoral artery consistent with hemodynamically significant stenosis. Monophasic waveforms in the left popliteal, and left posterior tibial and dorsalis pedis arteries at the ankles. Electronically signed by: Devi Hunter MD [phone] 26-Sep-2011 23:04 I have reviewed the films/images and agr ee with the above interpretation. Electronically signed by: Jackson Greenwood M.D. [phone] 27-Sep-2011 10:00 Guerline Sullivan M.D., Ph.D. IMG US PROCEDURES US Extremity Veins (09/26/2011 10:23 PM CDT) Anatomical Region Laterality Modality Vascular, Upper Extremity, Lower Extremity Ultrasound Specimen (Source) Anatomical Collection Method Collection Time Re ceived Time Location / / Volume Laterality 09/26/2011 10:23 PM CDT Narrative 09/27/2011 10:00 AM CDT 26-Sep-2011 22:23:00 ??Exam: US Extremity Veins Complete Indications: Bilateral lower extremity v eins and arteries, claudication and swelling of lower extremities ORIGINAL REPORT - 26-Sep-2011 22:51:00 US Extremity Duplex Scan Veins Complete with color and spectral Doppler analysis: The common femoral, upper deep femoral, femoral, and popliteal veins are widely patent bilaterally, without thrombus. The posterior tibial and peroneal veins were segmentally visualized bilaterally and are normal where seen. The left great sa phenous vein is patent and negative for thrombus. The proximal right great saphenous vein is patent and negative for thrombus. The patient is status post right great saphenous vein harvesting at the mid thigh. Electronically signed by: ?? Devi Hunter MD [phone] 26-Sep-2011 22:51 I have reviewed the films/images and agr ee with the above interpretation. Electronically signed by: ?? Jackson Greenwood ??Darío [phone] 27-Sep-2011 10:0 0 Procedure Note Diego Greenwood M.D. - 09/02/2017Forma tting of this note might be different from the original. 26-Sep-2011 22:23:00 Exam: US Extremity Veins Complete Indications: Bilateral lower extremity v eins and arteries, claudication and swelling of lower extremities ORIGINAL REPORT - 26-Sep-2011 22:51:00 US Extremity Duplex Scan Veins Complete with color and spectral Doppler analysis: The common femoral, upper deep femoral, femoral, and popliteal veins are widely patent bilaterally, without thrombus. The posterior tibial and peroneal veins were segmentally visualized bilaterally and are normal where seen. The left great saphenous vei n is patent and negative for thrombus. The proximal right great saphenous vein is patent and negative for thrombus. The patient is status post right great saphenous vein harvesting at the mid thigh. Electronically signed by: Devi Hunter MD [phone] 26-Sep-2011 22:51 I have reviewed the films/images and agr ee with the above interpretation. Electronically signed by: Jackson Greenwood M.D. [phone] 27-Sep-2011 10:00 Guerline Sullivan M.D., Ph.D. IMG US PROCEDURES DX Lumbar Spine 2-3 Views (09/26/2011 9:10 PM CDT) Anatomical Region Laterality Modality Lumbar Spine N/A Radiographic Imaging Specimen (Source) Anatomical Collection Method Collection Time Re ceived Time Location / / Volume Laterality 09/26/2011 9:10 PM CDT Narrative 09/27/2011 7:16 AM CDT 26-Sep-2011 21:10:00 ??Exam: Sp Lmb 3vw AP/Lat/Spt Indications: Shooting pain down right le g REVISED REPORT - 27-Sep-2011 07:16:00 Sp Lmb 3vw AP/Lat/Spt: Five lumbar-type vertebral bodies with r iblets at T12. Normal alignment. No fracture. Hypertrophic changes mid lumbar spine with narrowed 3rd lumbar interspace. Left SIXTO. Left iliac stent. Aortic calcifications. Electronically signed by: ?? Gail Chapa MD. ??[phone] 27-Sep-2011 07:1 6 Procedure Note Dustin Chapa IV, M.D. - 09/02/2017F ormatting of this note might be different from the original. 26-Sep-2011 21:10:00 Exam: Sp Lmb 3vw AP /Lat/Spt Indications: Shooting pain down right le g REVISED REPORT - 27-Sep-2011 07:16:00 Sp Lmb 3vw AP/Lat/Spt: Five lumbar-type vertebral bodies with r iblets at T12. Normal alignment. No fracture. Hypertrophic changes mid lumbar spine with narrowed 3rd lumbar interspace. Left SIXTO. Left iliac stent. Aortic calcifications. Electronically signed by: Gail Chapa MD. [phone] 27-Sep-2011 07:16 Guerline Sullivan M.D., Ph.D. [facility] ND OCEDURES documented in this encounter Visit Diagnoses Not on filedocumented in this encounter
--- OUTSIDE RECORDS SUMMARY | 2022-03-13 18:49 | XMS_ITS | Encounter Summary ---
:1940 Author Organization [facility] Address [address] [place] [address] Care Team Providers Name Role Phone Unavailable Primary Care Provider Unavailable Encounter Details Date Type Department Care Team Description 09/20/2013 Hospital Encounter HX NO MAPPING Social History Tobacco Use Types Packs/Day Years Used Date Smoking Tobacco: Never Assessed Sex Assigned at Date Recorded Not on file documented as of this encounter Plan of Treatment Not on filedocumented as of this encounter Visit Diagnoses Not on filedocumented in this encounter
--- OUTSIDE RECORDS SUMMARY | 2022-03-13 18:49 | XMS_ITS | Encounter Summary ---
:1940 Author Organization [facility] Address [address] [place] [address] Care Team Providers Name Role Phone Izzy Chen APRN, C.N.P. Primary Care Provider [phone] Reason for Visit Outpatient (Routine) - Closed Specialty Diagnoses / Procedures Referred By Contact Refer red To Contact Community Internal Kyra Kelley Rocheste r [facility] ANNETTE, C.N.P. [address] [place] [address] Referral ID Status Reason Start Date Expiration Date Visits Requ ested Visits Authorized [id number] Closed 02/01/2022 01/31/2025 1 1 Encounter Details Date Type Department Care Team Description 02/03/2022 External Outreach [facility] in [place] Kelley rtensive Heart And Chronic Kidney Disease Without Heart Failure And With Stage 2 (Mild) Chronic Kidney Disease (Primary Dx); [facility] Kyra Mullen APRN, Inap propriate Antidiuretic Hormone Syndrome (HCC); [address] C.N.P. Hypotension Orthostatic; [address] [facility] Peripheral Arterial Disease (HCC); [place], [place] Anemia; [id number] Restless Leg Syndrome; [phone] Debility (Work) Social History Tobacco Use Types Packs/Day Years Used Date Smoking Tobacco: Former Sex Assigned at Date Recorded Not on file documented as of this encounter Last Filed Vital Signs Vital Sign Reading Time Taken Comments Blood Pressure 128/61 02/03/2022 1:33 PM CDT Pulse 60 02/03/2022 1:33 PM CDT Temperature - - Respiratory Rate 18 02/03/2022 1:33 PM CDT Oxygen Saturation - - Inhaled Oxygen Concentration - - Weight - - Height - - Body Mass Index - - documented in this encounter Patient Instructions Patient InstructionsMoKyra guzmán APRN, C.N.P. - 02/03/2022 3:00 PM CDT Nursing Orders: - 1.5 L fluid restriction -general diet, encourage salt in diet -Na recheck next week. If not improved, will consider salt tabs - DC lisinopril given significant orthostasis - please apply compression wraps or compression stockings daily in AM, remove at night (I spoke withpatient about this. He was not enthusiastic but did agree to do it) : 1940 ORDERS and INSTRUCTIONS: Medications Discontinued During This Encounter Medication Reason lisinopriL (PRINIVIL,ZESTRIL) 10 mg tablet Orders Placed This Encounter Basic Metabolic Panel Standing Status: Future Standing Expiration Date: 05/05/2023 Scheduling Instructions: Add to next Sergio/Benedictine outcall lab day Order Specific Question: Region: Answer: [facility] [[id number]] S-TSH (Thyroid-Stimulating Hormone - Sensitive) Standing Status: Future Standing Expiration Date: 05/05/2023 Order Specific Question: Region: Answer: [facility] [facility] [[id number]] Osmolality, Urine Standing Status: Future Standing Expiration Date: 05/05/2023 Order Specific Question: Region: Answer: [facility] [place] [facility] [[id number]] Electronically signed by: Kyra Kelley APRN, C.N.P. 02/03/22 1:52 PM CDT documented in this encounter Progress Notes Kyra Kelley APRN, C.N.P. - 02/03/2022 3:00 PM CDT CHIEF COMPLAINT / REASON FOR VISIT [facility] Follow Up Visit No chief complaint on file. Visit Type: In Person: Face to Face SUBJECTIVE HISTORY OF PRESENT ILLNESS Obtained from Patient and Nursing: I am evaluating Mr. Velazquez at the [facility]. I reviewed his labs 2 days ago whichrevealed worsening hyponatremia. We started a fluid restriction and encouraged sodium in his diet. Ispoke with nursing staff today in person at the facility. We reviewed his blood pressures. He drops 40-60 points upon standing. He is extremely symptomatic in reports dizziness, lightheadedness, and presyncopal feelings. He is only able to ambulate 20 ft. He worked with PT/OT here at the short-term rehab. He denies pain. No concerns from his surgical sites. We discussed nonpharmacologic interventionsfor the hyponatremia. We discussed blood pressure management. Medications were reviewed. At he initially states that he wants discharge tomorrow. Nursing later informs me that his daughter once discharge him home next Monday. We openly discussed our concerns but discharging him home givenhis orthostasis, labs, and other medical conditions. In the end, patient and family were amenable tostaying longer. Diagnosis Overview 1. Peripheral Arterial Disease (HCC) FEMORAL ENDARTERECTOMY Left s/p Left femoral endarterectomy, R SFA stent 11-23-11, s/p Right femoral endarterectomy, right external iliac stent Left SFA stent 05-24-2012 Femoral popliteal bypass left leg 01/11/2022 at [facility] Clopidogrel lifelong 2. 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 Carvedilol, lisinopril 3. Restless Leg Syndrome Continues on home dose of Mirapex 4. Anemia 5. 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 6. Hypotension Orthostatic Following hospital stay for PAD 7. Debility I reviewed EPIC notes as well as [...] noted elsewhere in this note, otherwise negative. OBJECTIVE Vitals: 02/03/22 1333 BP: 128/61 Pulse: 60 Resp: 18 PHYSICAL EXAM Physical Exam General: Overall well appearing male in no distress, appears stated age Mental: alert, calm, accurate historian Eyes: sclera anicteric HEENT: no dysphonia noted, hearing normal CV: Normal S1, S2. Bilateral lower extremities with out edema. Respiratory: work of breathing normal, speaking in full sentences, no audible wheeze/stridor, clear to auscultation Abdomen: Does not appear distended, soft, nontender, normoactive bowel sounds Musculoskeletal: No sarcopenia noted Neurologic: no dysarthria or word-finding difficulties noted, face symmetric, moving all 4 extremities without apparent limitation Skin: Left medial lower extremity incision clean, dry, well approximated. No erythema or exudate. Norashes on limited exam ASSESSMENT / PLAN #1 Inappropriate Antidiuretic Hormone Syndrome (HCC) Assessment & Plan: Sodium this week was 121, down 130 in the hospital. Cognitively is intact. No falls. He is struggling with orthostasis as outlined under that appropriate diagnoses code. We will ensure 1.5 L fluid restriction. We will allow a general diet and encourage sodium in his diet. We will recheck sodium next week. I will add on a urine osmolality. If sodium does not improve, will add salt tablets. 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 #3 Hypotension Orthostatic Assessment & Plan: He is experiencing significant orthostasis. Resting BP is 120/60. He drops to 80/40. He has documented blood pressures of 78-92 with a diastolic of 40-45 upon standing. He is extremely symptomatic and complains of presyncopal feeling. We have requested that he used short stretch wraps or compression stockings. We could also consider abdominal binder. The highest recorded blood pressure I see is a systolic of 145. He is currently taking clonidine p.r.n.. He takes lisinopril 10 mg daily. We will discontinue the lisinopril. Will follow-up in 1 week. We will continue use clonidine p.r.n.. If he is consistently having supine/sitting hypertension, willconsider restarting lisinopril at 5 mg daily. #4 Peripheral Arterial Disease (HCC) Assessment & Plan: Sites are well approximated without concerns for infection. Continue clopidogrel #5 Anemia Assessment & Plan: Lab Results Component Value Date WBC 3.8 (L) 02/01/2022 HGB 10.8 (L) 02/01/2022 HCT 31.1 (L) 02/01/2022 MCV 93 02/01/2022 PLT 270 02/01/2022 Hgb stable. #6 Restless Leg Syndrome #7 Debility Assessment & Plan: He continues with PT/OT here at the facility. Patient and family initially wanted to discharge next week. Therapy does not believe he is safe to return home. We also do not believe he is safe to returnhome. He can only ambulate 20 ft. That is limited due to orthostasis. He is also hyponatremic. We have planned a reason to skill him for nursing and therapy. Nursing spoke with the patient's daughter and they are amenable to staying longer. Other orders - Community Internal Medicine office visit (clinic) - Basic Metabolic Panel; Future; Expected date: 02/08/2022 - S-TSH (Thyroid-Stimulating Hormone - Sensitive); Future; Expected date: 02/08/2022 - Osmolality, Urine; Future; Expected date: 02/03/2022 PATIENT EDUCATION Ready to learn, no apparent learning barriers were identified; learning preferences include listening. Explained diagnosis and treatment plan; patient/child/caregiver expressed understanding of the content. Time based billing: Yes, I spent a total of 50 minutes, > 50% in counseling and coordination of care including: , discussion of test results, education , instructions , risk factor reduction. , risks and benefits of management options, treatment recommendations, and communication of orders to the facility documented in this encounter Miscellaneous Notes Assessment & Plan Note - Kyra Kelley APRN, C.N.P. - 02/03/2022 1:41 PM CDTAssociated Problem(s): Anemia Lab Results Component Value Date WBC 3.8 (L) 02/01/2022 HGB 10.8 (L) 02/01/2022 HCT 31.1 (L) 02/01/2022 MCV 93 02/01/2022 PLT 270 02/01/2022 Hgb stable. Assessment & Plan Note - Kyra Kelley APRN, C.N.P. - 02/03/2022 1:40 PM CDTAssociated Problem(s): Debility He continues with PT/OT here at the facility. Patient and family initially wanted to discharge next week. Therapy does not believe he is safe to return home. We also do not believe he is safe to returnhome. He can only ambulate 20 ft. That is limited due to orthostasis. He is also hyponatremic. We have planned a reason to skill him for nursing and therapy. Nursing spoke with the patient's daughter and they are amenable to staying longer. Assessment & Plan Note - Kyra Kelley APRN, C.N.P. - 02/03/2022 1:39 PM CDTAssociated Problem(s): Peripheral Arterial Disease (HCC) Sites are well approximated without concerns for infection. Continue clopidogrel Assessment & Plan Note - Kyra Kelley APRN, C.N.P. 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 Assessment & Plan Note - Kyra Kelley APRN, C.N.P. - 02/03/2022 1:36 PM CDTAssociated Problem(s): Hypotension Orthostatic He is experiencing significant orthostasis. Resting BP is 120/60. He drops to 80/40. He has documented blood pressures of 78-92 with a diastolic of 40-45 upon standing. He is extremely symptomatic and complains of presyncopal feeling. We have requested that he used short stretch wraps or compression stockings. We could also consider abdominal binder. The highest recorded blood pressure I see is a systolic of 145. He is currently taking clonidine p.r.n.. He takes lisinopril 10 mg daily. We will discontinue the lisinopril. Will follow-up in 1 week. We will continue use clonidine p.r.n.. If he is consistently having supine/sitting hypertension, willconsider restarting lisinopril at 5 mg daily. Assessment & Plan Note - Kyra Kelley APRN, C.N.P. - 02/03/2022 1:35 PM CDTAssociated Problem(s): Inappropriate Antidiuretic Hormone Syndrome (HCC) Sodium this week was 121, down 130 in the hospital. Cognitively is intact. No falls. He is struggling with orthostasis as outlined under that appropriate diagnoses code. We will ensure 1.5 L fluid restriction. We will allow a general diet and encourage sodium in his diet. We will recheck sodium next week. I will add on a urine osmolality. If sodium does not improve, will add salt tablets. 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 Orthostatic S-TSH Lab Routine Inappropriate Antidiuretic E xpected: 02/08/2022, (Thyroid-Stimulating Hormone Syn drome (HCC) Expires: 05/05/2023 Hormone - Sensitive) Hypertensive Heart A nd Chronic Kidney Disease Without Heart Failure And With Stage 2 (Mild) Chronic Kidney Disease Hypotension Orthostatic Osmolality, Urine Lab Routine Inappropriate Antidiure tic Expected: 02/03/2022 Hormone Syndrome (HCC) (Approximate), Hypertensive Heart And Expir es: 05/05/2023 Chronic Kidney Disease Without Heart Failure And With Stage 2 (Mild) Chronic Kidney Disease Hypotension Orthostatic documented as of this encounter Visit Diagnoses Diagnosis Hypertensive Heart And Chronic Kidney Di sease Without Heart Failure And With Stage 2 (Mild) Chronic Kidney Disease - Primary Inappropriate Antidiuretic Hormone Syndr ome (HCC) Hypotension Orthostatic Peripheral Arterial Disease (HCC) Anemia Restless Leg Syndrome Debility documented in this encounter Care Teams Senior Director Finance Relationship Specialty Start Date End Date Izzy Chen V., ANNETTE, C.N.P. PCP - General Internal Medicine 01/18/22 02/22/[address] [place] [phone] documented as of this encounter
--- OUTSIDE RECORDS SUMMARY | 2022-03-13 18:49 | XMS_ITS | Encounter Summary ---
:1940 Author Organization [facility] Address [address] [place] [address] Care Team Providers Name Role Phone Izzy Chen APRN, C.N.P. Primary Care Provider [phone] Encounter Details Date Type Department Care Team Description 01/26/2022 Orders Only Senior [facility] in [place], [place] [address] Darío Castaneda [address] [place] [address] [place], [place] [phone] (Wo rk) Social History Tobacco Use Types Packs/Day Years Used Date Smoking Tobacco: Former Sex Assigned at Date Recorded Not on file documented as of this encounter Plan of Treatment Not on filedocumented as of this encounter Visit Diagnoses Not on filedocumented in this encounter Care Teams Patient Care Coordinator Relationship Specialty Start Date End Date Izzy Chen APRN, C.N.P. PCP - General Internal Medicine 01/18/22 02/22/[address] [place] [phone] documented as of this encounter
--- OUTSIDE RECORDS SUMMARY | 2022-03-13 18:49 | XMS_ITS | Encounter Summary ---
:1940 Author Organization [facility] Address [address] [place] [address] Care Team Providers Name Role Phone Unavailable Primary Care Provider Unavailable Encounter Details Date Type Department Care Team Description 10/04/2013 Hospital Encounter HX NO MAPPING Social History Tobacco Use Types Packs/Day Years Used Date Smoking Tobacco: Never Assessed Sex Assigned at Date Recorded Not on file documented as of this encounter Plan of Treatment Not on filedocumented as of this encounter Visit Diagnoses Not on filedocumented in this encounter
--- OUTSIDE RECORDS SUMMARY | 2022-03-13 18:49 | XMS_ITS | Encounter Summary ---
:1940 Author Organization [facility] Address [address] [place] [address] Care Team Providers Name Role Phone Izzy Chen APRN, C.N.P. Primary Care Provider [phone] Reason for Referral Outpatient (Routine) - Closed Specialty Diagnoses / Procedures Referred By Contact Refer red To Contact [facility] Internal Kyra Kelley Rocheste r [facility] ANNETTE, C.N.P. [address] [place] [phone] Referral ID Status Reason Start Date Expiration Date Visits Requ ested Visits Authorized [id number] Closed 02/01/2022 01/31/2025 1 1 Scheduling Instructions Add to Anup Chu with me Encounter Details Date Type Department Care Team Description 02/01/2022 Clinical Communication Division of [facility] Kyra Kelley Internal Medicine, ANNETTE Mullen, C.N. [place]ley [place], [place] [address] [place] [address] [place] [phone] [place], [place] [phone] (Work) [phone] Social History Tobacco Use Types Packs/Day Years Used Date Smoking Tobacco: Former Sex Assigned at Date Recorded Not on file documented as of this encounter Miscellaneous Notes Telephone Encounter - Kyra Kelley APRN, C.N.P. - 02/01/2022 3:11 PM CDT Images from the original note were not included. Labs reviewed from [facility] outside lab. Hgb improved to 10.8, was 8.1. -Sodium down to 121, was 129-130 prior. Will request nursing ensure fluid restriction of 2 L. Encourage sodium in diet. FILM OR VIDEOTAPE EDITOR to evaluate patient on to further determine cause, eliminate contributing factors, and order appropriate follow up tests. -Notify FILM OR VIDEOTAPE EDITOR if new confusion, change in mental status, falls, if weight increases 3 lb overnight or 5 lb in one week, bleeding, or with any concerns. -If patient becomes symptomatic, notify FILM OR VIDEOTAPE EDITOR which may warrant immediate medical evaluation. : 1940 ORDERS and INSTRUCTIONS: There are no discontinued medications. Orders Placed This Encounter Community Internal Medicine office visit (clinic) [facility] Standing Status: Future Standing Expiration Date: 05/04/2023 Referral Priority: Routine Referral Type: Outpatient Referral Location: [facility] Number of Visits Requested: 1 Electronically signed by: Kyra Kelley APRN, C.N.P. 02/01/22 3:18 PM CDT FILM OR VIDEOTAPE EDITOR called and spoke with LIZZ Soto. Patient is having issues with orthostasis. They will print Bps and have ready for my visit . At rest, he is normal to higher. With ambulation, he becomes dizzy and BP is a lot lower ie 160/80s to 90/40. They have no acute concerns beyond orthostasis. documented in this encounter Plan of Treatment Scheduled Referrals Name Type Priority Associated Diagnoses Order [facility] Internal Outpatient Referral Routine Ex pected: Medicine office 02/03/2022, visit (clinic) Expires: 05/04/2023 documented as of this encounter Visit Diagnoses Not on filedocumented in this encounter Care Teams Hair Dryer Relationship Specialty Start Date End Date Izzy Chen APRN, C.N.P. PCP - General Internal Medicine 01/18/22 02/22/[address] [place] [address] SAMMI Johnson [phone] documented as of this encounter
--- OUTSIDE RECORDS SUMMARY | 2022-03-13 18:49 | XMS_ITS | Encounter Summary ---
:1940 Author Organization [facility] Address [address] [place] [address] Care Team Providers Name Role Phone Izzy Chen APRN, C.NGladys Primary Care Provider [phone] Reason for Visit Reason Comments Dizziness Encounter Details Date Type Department Care Team Description 01/18/2022 - Emergency [facility] Dizziness (Primary Dx) 01/20/2022 [address] [place] [address] [facility] [phone] Social History Tobacco Use Types Packs/Day Years Used Date Smoking Tobacco: Former Sex Assigned at Date Recorded Not on file documented as of this encounter Medications at Time of Discharge Medication Sig Dispensed Refills Start Date End Date acetaminophen (TYLENOL) Take 650 mg by mouth 0 325 mg tablet every 4 (four) hours as needed. amiodarone (PACERONE) Take 200 mg by mouth 0 200 mg tablet 2 (two) times a day. aspirin [address] tablet Take 81 mg by mouth 0 daily. atorvastatin (LIPITOR) Take 80 mg by mouth 0 80 mg tablet daily. carvediloL (COREG) 12.5 Take 6.25 mg by mouth 0 0 11/24/2021 mg tablet 2 (two) times a day. cloNIDine (CATAPRES) 0.1 Take 0.1 mg by mouth. 0 mg tablet Take 1 tab for blood pressure greater than 170/90. May repeat in 1 hour. clopidogreL (PLAVIX) 75 Take 75 mg by mouth 0 mg tablet daily. gabapentin (NEURONTIN) Take 600 mg by mouth 0 300 mg capsule 2 (two) times a day. magnesium oxide (MAG-OX) Take by mouth Medrol 0 400 mg (241.3 mg Dose Pack scheduling magnesium) tablet ONLY. ubupqomkdlgs-owbzzcdy-ke Take 1 tablet by 0 tein (CENTURY MATURE) mouth daily. tablet nitroglycerin Place 0.4 mg under 0 (NITROSTAT) 0.4 mg SL the tongue every 5 tablet (five) minutes as needed. omeprazole (PriLOSEC) 40 Take 40 mg by mouth [address] capsule every morning before breakfast. polyethylene glycol Take 17 g by mouth 2 0 (MIRALAX) 17 gram/dose (two) times a day as oral powder needed. And scheduled daily on Monday pramipexole (MIRAPEX) Take 0.5 mg by mouth 0 0.5 mg tablet at bedtime. simethicone Take 125 mg by mouth 0 (MYLICON,GAS-X) 125 mg every 6 (six) hours capsule as needed. tamsulosin (FLOMAX) 0.4 Take 0.4 mg by mouth 0 mg 24 hr capsule daily. timoloL (BETIMOL) 0.5 % Administer 1 drop 0 ophthalmic solution into both eyes daily. lisinopriL Take 10 mg by mouth 0 02/03 (PRINIVIL,ZESTRIL) 10 mg daily. tablet oxyCODONE-acetaminophen Take 1 tablet by 10 tablet 0 202102/17/2022 (PERCOCET) 5-325 mg per mouth every 4 (four) tabletIndications: hours as needed for Prolonged Acute pain Indication: Pain/Traumatic Injury Prolonged Acute Pain/Traumatic Injury. Do not exceed 8 tablets per day. documented as of this encounter Plan of Treatment Not on filedocumented as of this encounter Visit Diagnoses Diagnosis Dizziness - Primary documented in this encounter Care Teams Aerial Photographer Relationship Specialty Start Date End Date Izzy Chen APRN, C.N.P. PCP - General Internal Medicine 01/18/22 02/22/[address] [place] [address] [place] [address] documented as of this encounter
--- OUTSIDE RECORDS SUMMARY | 2022-03-13 18:49 | XMS_ITS | Encounter Summary ---
:1940 Author Care Team Providers Name Role Phone Monico Modi MD Primary Care Provider [phone] Reason for Visit Nurse Visit - Catheter [...] 12/20/2021 Retention of Urine Sulaiman Romano MD: [id number] [place] [address], Ph. History of Present Illness None recorded. Review of Systems None recorded. Physical Exam None recorded.
--- OUTSIDE RECORDS SUMMARY | 2022-03-13 18:49 | XMS_ITS | Encounter Summary ---
:1940 Author Organization [facility] Address [address] [place] [address] Care Team Providers Name Role Phone Unavailable Primary Care Provider Unavailable Encounter Details Date Type Department Care Team Description 09/26/2011 - 09/27/2011 Hospital Encounter HX NO MAPPING Social History Tobacco Use Types Packs/Day Years Used Date Smoking Tobacco: Never Assessed Sex Assigned at Date Recorded Not on file documented as of this encounter Plan of Treatment Not on filedocumented as of this encounter Procedures Procedure Name Priority Date/Time Associated Comments Diagnosis ELECTROLYTE (CHEM 4) Routine 09/26/2011 7:57 Resu lts for this PANEL, S/P PM CDT procedure are i n the results section. CARDIAC BIOMARKER PANEL, Routine 09/26/2011 7:57 Results for this S PM CDT procedure are i n the results section. PROTHROMBIN TIME (PT), P Routine 09/26/2011 7:57 Results for this PM CDT procedure are i n the results section. D-DIMER, P Routine 09/26/2011 7:57 Results for this PM CDT procedure are i n the results section. CBC WITHOUT Routine 09/26/2011 7:57 Results for this DIFFERENTIAL, B PM CDT procedure ar e in the results section. ALANINE AMINOTRANSFERASE Routine 09/26/2011 7:57 Results for this (ALT), S/P PM CDT procedure are i n the results section. ASPARTATE Routine 09/26/2011 7:57 Results for this AMINOTRANSFERASE (AST), PM CDT proc edure are in S/P the results section. ALKALINE PHOSPHATASE, Routine 09/26/2011 7:57 Res ults for this S/P PM CDT procedure are i n the results section. LIPASE, S/P Routine 09/26/2011 7:57 Results for this PM CDT procedure are i n the results section. BILIRUBIN DIRECT, S/P Routine 09/26/2011 7:57 Res ults for this PM CDT procedure are i n the results section. BILIRUBIN, TOT, S/P Routine 09/26/2011 7:57 Resul ts for this PM CDT procedure are i n the results section. AMYLASE, TOT, S Routine 09/26/2011 7:57 Results f or this PM CDT procedure are i n the results section. documented in this encounter Results Amylase, Total (09/26/2011 7:57 PM CDT) P athologist Signature Amylase, 82 26 - 102 [facility] Total, S U/L LABORATORIES - [employer] [facility] [employer] [facility] Specimen Anatomical Collection Method Collection Time Receive d Time (Source) Location / / Volume Laterality 09/26/2011 7:57 PM 2 7:57 CDT PM CDT Guerline Sullivan M.D., Ph.D. LAB BLOOD ADD-ON Performing Organization Address City/[facility] Phon e Number [facility] LABORATORIES - [address] [place], [place] [address] [employer] [facility] [employer] [facility] ALT (Alanine Aminotransferase) (09/26/2011 7:57 PM CDT) [facility] gist Method Time Signature Alanine 53 7 - 55 [facility] Aminotransferase U/L LABORATORIES - (ALT), S [employer] [facility] Specimen Anatomical Collection Method Collection Time Receive d Time (Source) Location / / Volume Laterality 09/26/2011 7:57 PM 2 7:57 CDT PM CDT Guerline Sullivan M.D., Ph.D. LAB BLOOD ADD-ON Performing Organization Address City/[facility]/ZIP Code Phon e Number [facility] LABORATORIES - [address] [place], [place] [address] [facility] [employer] [facility] (ABNORMAL) Lipase (09/26/2011 7:57 PM CDT) P athologist Signature Lipase, S 186 (H) 10 - 73 [facility] U/L [facility] Specimen Anatomical Collection Method Collection Time Receive d Time (Source) Location / / Volume Laterality 09/26/2011 7:57 PM 2 7:57 CDT PM CDT Guerline Sullivan M.D., Ph.D. LAB BLOOD ADD-ON Performing Organization Address City/[facility] Code Phon e Number [facility] - [address] [place], [place] [address] [facility] [employer] [facility] Alkaline Phosphatase (09/26/2011 7:57 PM CDT) athologist Signature Alkaline 101 45 - 115 [facility] Phosphatase, S U/L [facility] Specimen Anatomical Collection Method Collection Time Receive d Time (Source) Location / / Volume Laterality 09/26/2011 7:57 PM 2 7:57 CDT PM CDT Guerline Sullivan M.D., Ph.D. LAB BLOOD ADD-ON Performing Organization Address City/State/ZIP Code Phon e Number [facility] - [address] [place], [place] [address] [facility] Bilirubin, Direct (09/26/2011 7:57 PM CDT) athologist Signature Bilirubin, 0.1 0.0 - 0.3 [facility] Direct, S MG/DL [facility] Specimen Anatomical Collection Method Collection Time Receive d Time (Source) Location / / Volume Laterality 09/26/2011 7:57 PM 2 7:57 CDT PM CDT Guerline Sullivan M.D., Ph.D. LAB BLOOD ADD-ON Performing Organization Address City/State/ZIP Code Phon e Number [facility] - [address] [place] [phone] [facility] [employer] Bilirubin, Total (09/26/2011 7:57 PM CDT) athologist Signature Bilirubin, 0.3 0.1 - 1.0 [facility] Total, S MG/DL [facility] Specimen Anatomical Collection Method Collection Time Receive d Time (Source) Location / / Volume Laterality 09/26/2011 7:57 PM 2 7:57 CDT PM CDT Guerline Sullivan M.D., Ph.D. LAB BLOOD ADD-ON Performing Organization Address City/[facility]/ZIP Code Phon e Number [facility] - [address] [place], [place] [address] [facility] [employer] (ABNORMAL) AST (Aspartate Aminotransferase) (09/26/2011 7:57 PM CDT) Analysis Performed At Patho logist Time Signature AST, Total, S 57 (H) 8 - 48 U/L [facility] Specimen Anatomical Collection Method Collection Time Receive d Time (Source) Location / / Volume Laterality 09/26/2011 7:57 PM 2 7:57 CDT PM CDT Guerline Sullivan M.D., Ph.D. LAB BLOOD ADD-ON Performing Organization Address City/[facility]/ZIP Code Phon e Number [facility] LABORATORIES - [address] [place], [place] [address] [facility] [employer] [facility] Electrolyte (Chem 4) Panel (09/26/2011 7:57 PM CDT) Analysis Performed At Patho logist Time Signature Chloride, S 102 100 - 108 [facility] MMOL/L [facility] HX Bicarbonate, 26 22 - 29 [facility] P/S MMOL/L [facility] Sodium, S 140 135 - 145 [facility] MMOL/L [facility] Potassium, S 4.0 3.6 - 5.2 [facility] MMOL/L [facility] Creatinine 1.3 0.8 - 1.3 [facility] MG/DL [facility] BUN (Blood Urea 13 8 - 24 [facility] Nitrogen), S MG/DL [facility] Anion Gap 12 7 - 15 [facility] Glucose, S 99 70 - 140 [facility] MG/DL [facility] Specimen Anatomical Collection Method Collection Time Receive d Time (Source) Location / / Volume Laterality 09/26/2011 7:57 PM 2 7:57 CDT PM CDT Guerline Sullivan M.D., Ph.D. LAB BLOOD ADD-ON Performing Organization Address City/[facility] Phon e Number [facility] LABORATORIES - [address] [place], [place] [address] [facility] [employer] [facility] Cardiac Biomarker Panel (09/26/2011 7:57 PM CDT) P athologist Signature Troponin T, S <0.01 <0.01 [facility] NG/ML [facility] Troponin T 3H, <0.01 <0.01 [facility] S NG/ML [facility] Comment: Slightly hemolyzed Delta Interp Not Sig [facility] Comment: No significant delta observed. Troponin Delta 0.00 NG/ML [facility] LAB ORATORIES [facility] Troponin T 6H, S <0.01 <0.01 NG/ML [facility] Delta Interp Not Sig [facility] Comment: No significant delta observed. Troponin Delta 0.00 NG/ML [facility] Specimen Anatomical Collection Method Collection Time Receive d Time (Source) Location / / Volume Laterality 09/26/2011 7:57 PM 2 7:57 CDT PM CDT Guerline Sullivan M.D., Ph.D. LAB BLOOD ADD-ON Performing Organization Address City/[facility] Code Phon e Number [facility] LABORATORIES - [address] [place], [place] [address] [facility] [employer] [facility] [employer] [facility] CBC without Differential (09/26/2011 7:57 PM CDT) [facility] [employer] Method Time Signature Erythrocytes 4.99 4.32 - [facility] 5.72 LABORATORIES - X10(12)/L [facility] [employer] MCV 90.8 81.2 - [facility] 95.1 FL [facility] RBC Distrib Width 13.0 11.8 - [facility] 15.6 % [facility] Platelet Count 242 150 - 450 [facility] X10(9)/L [facility] Leukocytes 9.4 3.5 - [facility] 10.5 LABORATORIES - X10(9)/L [facility] Hemoglobin 15.2 13.5 - [facility] 17.5 G/DL [facility] Hematocrit 45.3 38.8 - [facility] 50.0 % [facility] Specimen Anatomical Collection Method Collection Time Receive d Time (Source) Location / / Volume Laterality 09/26/2011 7:57 PM 2 7:57 CDT PM CDT Guerline Sullivan M.D., Ph.D. LAB BLOOD ADD-ON Performing Organization Address City/[facility]/ZIP Code Phon e Number [facility] LABORATORIES - [address] [place], [place] [address] [employer] [facility] PT (Prothrombin Time) with INR (09/26/2011 7:57 PM CDT) [facility] [employer] Method Time Signature Prothrombin 11.3 9.5 - 13.8 [facility] Time, P SEC LABORATORIES [facility] INR 1.0 0.8 - 1.2 [facility] Specimen Anatomical Collection Method Collection Time Receive d Time (Source) Location / / Volume Laterality 09/26/2011 7:57 PM 2 7:57 CDT PM CDT Guerline Sullivan M.D., Ph.D. LAB BLOOD ADD-ON Performing Organization Address City/State/ZIP Code Phon e Number [facility] LABORATORIES - [address] [place], [place] [address] [employer] [facility] (ABNORMAL) D-Dimer (09/26/2011 7:57 PM CDT) [facility] Method Time Signature Fibrinogen 0.68 (H) <=0.50 MCG [facility] Equivalent FEU/ML LABORATORIES - Units (FEU) [facility] [employer] D-Dimer, P 340 (H) SeeComment [facility] NG/ML LABORATORIES - [employer] [facility] Comment: Reference Range: ? <=250 ? The stated reference value is ? the cutoff to use D-Dimer for ? exclusion of deep vein ? thrombosis and/or pulmonary ? embolism. ? Specimen Anatomical Collection Method Collection Time Receive d Time (Source) Location / / Volume Laterality 09/26/2011 7:57 PM 2 7:57 CDT PM CDT Guerline Sullivan M.D., Ph.D. LAB BLOOD ADD-ON Performing Organization Address City/State/ZIP Code Phon e Number [facility] LAB[facility]IES - [address] [place], [place] [address] [employer] [facility] documented in this encounter Visit Diagnoses Not on filedocumented in this encounter
--- OUTSIDE RECORDS SUMMARY | 2022-03-13 18:49 | XMS_ITS | Encounter Summary ---
:1940 Author Organization [facility] Address [address] [place] [id number] Care Team Providers Name Role Phone Unavailable Primary Care Provider Unavailable Encounter Details Date Type Department Care Team Description 09/18/2013 Hospital Encounter HX NO MAPPING Social History Tobacco Use Types Packs/Day Years Used Date Smoking Tobacco: Never Assessed Sex Assigned at Date Recorded Not on file documented as of this encounter Plan of Treatment Not on filedocumented as of this encounter Visit Diagnoses Not on filedocumented in this encounter
[2022-03-13 18:54] LABS: Bacteria Urine Few; Squamous Epithelial Cell Urine Few (None-Few)
[2022-03-13 18:54] LABS: SARS PCR* Negative SARS-CoV-2 (Negative)
[2022-03-13 20:33] VITALS: BP 151/53; PULSE 61; RESP 18; TEMP 36.3
== END 2022-03-13 19:10 | disposition home or self-care (01) ==
PROVIDERS: Emergency Provider Family Medicine; PCP Family Medicine
DX: M54.50 Low back pain, unspecified (principal); E87.1 Hypo-osmolality and hyponatremia
CPT/HCPCS: 36415; 51702; 72100; 80048; 81001; 85025; 87086; 87635; 99284; 99285

== ENCOUNTER 2022-05-29 16:23 | Inpatient (IN) | payer MEDICARE, BC, SELFPAY ==
[2022-05-29] VITALS (10 sets, daily range): BP systolic 137–145; BP diastolic 62–76; PULSE 60–65; RESP 18; TEMP 36.2–36.6; O2SAT 93–100; BMI 25.0; BMI 27.4
--- NOTE | 2022-05-29 16:48 | CRLHL7_ITS ---
For Patients: As a result of the Cures Act, medical imaging exams and procedure reports are released immediately into your electronic medical record. You may view this report before your referring provider. If you have questions, please contact your health care provider. INDICATION: Short of breath. COMPARISON: 16 February 2021. TECHNIQUE: One view. IMPRESSION: Low lung volumes. Pulmonary vascular congestion. Small pleural effusions with some fluid along the minor fissure. Minor hazy airspace opacity at both bases likely some atelectasis. Sternotomy and left chest pacer body and right heart transvenous wires unchanged. Suture anchor left humeral head. Degenerative arthrosis both glenohumeral joints. Dictated by Charanjit Valera MD @ 05/29/2022 5:23:31 PM (Electronically Signed)
--- NOTE | 2022-05-29 16:58 | ED.GENADULT ---
HPI - General Adult General Time Seen by Provider: 16:58 Date Seen: 05/29/22 Chief complaint: Shortness of Breath/Dyspnea Stated complaint: Short of Breath Time Seen by Provider: 05/29/22 16:24 Source: patient Mode of arrival: ambulatory Limitations: no limitations History of Present Illness HPI narrative: Patient is 82-year-old male has a history of heart disease, with acute [place], CABG, reocclusion and stent placement and angioplasty, as well as anxiety who presents with intermittent shortness of breath primarily at night, but not necessary is social with lying down. He has noticed this last couple of weeks. He has had a little bit of a cold type symptoms as well with congestion and weakness. Denies fever, chills, rigors. Denies significant cough, denies leg swelling or edema. He reports with his left leg swells occasionally due to prior surgery. He sees Dr. Modi at a [facility]. Past medical history is inclusive of CABG, angioplasty, stent repeat stenting, pacemaker, anxiety, peripheral vascular disease. Patient denies chest pain currently or shortness of breath he states he feels better now. Related Data Home Medications Medication Instructions Recorded Confirmed amiodarone 200 mg tablet mg 03/13/22 carvedilol 12.5 mg tablet mg 03/13/22 clonidine HCl 0.1 mg tablet mg 03/13/22 clopidogrel 75 mg tablet mg 03/13/22 gabapentin 300 mg capsule mg 03/13/22 pramipexole 0.5 mg tablet mg 03/13/22 tamsulosin 0.4 mg capsule mg PO 03/13/22 Allergies Allergy/AdvReac Type Severity Reaction Status Date / Time erythromycin base Allergy Verified 03/13/22 16:50 Penicillins Allergy Verified 03/13/22 16:50 Review of Systems Status of ROS: Reports: 10 or more systems reviewed and unremarkable except as noted in History and below [facility] Social History Smoking Status: Never smoker How often do you have a drink containing alcohol: never AUDIT-C Alcohol total score: 0 Non-prescribed substance use: denies use Exam Narrative: Exam Narrative: Objective: Patient's vital signs unremarkable He is alert orient x3 in no apparent distress, noncyanotic, no accessory muscles of respiration use O2 sat 100% on room air HEENT unremarkable Neck is supple Chest is clear Heart rhythm regular 2/6 systolic murmur occasional ectopic beat noted Abdomen benign soft Extremities are no edema neurologic nonfocal upper extremities, skin exam is unremarkable Const: Vital Signs, click to edit/add: Vital Signs - 24 hr 05/29/22 16:31 05/29/22 17:22 05/29/22 17:23 Temperature 97.1 F L Pulse Rate 60 60 Pulse Rate [Right Pulse Oximeter] 64 Respiratory Rate 18 Blood Pressure 142/70 H Blood Pressure [Ri ght Upper Arm] 137/62 Pulse Oximetry 100 98 95 Oxygen Delivery Me thod Room Air 05/29/22 17:30 05/29/22 17:32 05/29/22 18:00 Temperature Pulse Rate 60 60 61 Pulse Rate [Right Pulse Oximeter] Respiratory Rate Blood Pressure 140/64 H Blood Pressure [Ri ght Upper Arm] Pulse Oximetry 94 93 96 Oxygen Delivery Me thod 05/29/22 18:02 Temperature Pulse Rate 60 Pulse Rate [Right Pulse Oximeter] Respiratory Rate Blood Pressure 145/76 H Blood Pressure [Ri ght Upper Arm] Pulse Oximetry 95 Oxygen Delivery Me thod Course Vital Signs Vital signs: Initial Vital Signs Temperature 97.1 F L 05/29/22 16:31 Temperature Source Temporal Artery Scan 05/29/22 16:31 Pulse Rate 64 05/29/22 16:31 Respiratory Rate 18 05/29/22 16:31 Blood Pressure 137/62 05/29/22 16:31 Blood Pressure Mean 87 05/29/22 16:31 Blood Pressure Position Sitting 05/29/22 16:31 Pulse Oximetry 100 05/29/22 16:31 Oxygen Delivery Method 05/29/22 16:31 Vital Signs Temperature 97.1 F L 05/29/22 16:31 Pulse Rate 64 05/29/22 16:31 Respiratory Rate 18 05/29/22 16:31 Blood Pressure 137/62 05/29/22 16:31 Pulse Oximetry 100 05/29/22 16:31 Oxygen Delivery Method 05/29/22 16:31 Temperature 97.1 F L 05/29/22 16:31 Pulse Rate 60 05/29/22 18:02 Respiratory Rate 18 05/29/22 16:31 Blood Pressure 145/76 H 05/29/22 18:02 Pulse Oximetry 95 05/29/22 18:02 Oxygen Delivery Method 05/29/22 16:31 Medical Decision Making MDM Narrative Medical decision making narrative: Patient is a complicated medical history including coronary disease, he is on multiple medications, his hemodynamics and oxygen a [place] look good now with his O2 sat 100%. He describes this as an intermittent issue which certainly could be related to anxiety, but I think could be [place] to get an EKG cardiac enzymes, chest x-ray, COVID/influenza/RSV test. Disposition pending findings above. Patient reports that typically his son will stay with him but at this weekend he was unable to do so. Addendum: Patient's EKG by my read shows sinus to rhythm with first-degree AV block no marked ST T wave changes all some lateral T-wave inversion her lateral T-wave flattening in V5 and V6. Chest x-ray shows some right pleural effusion, this is confirmed by CT scan by my review with a pretty significant right pleural effusion. Elevated proBNP at 6900, very low sodium this critical 122. Given the patient's weakness and fatigue and shortness of breath I think with his pleural effusion likely congestive heart failure he should have treatment for his hyponatremia, congestive heart failure, volume overload. Will admit to the hospital discussed with our hospitalist Dr. Motta. Lab Data Labs: Lab Results 05/29/22 05/29/22 05/29/22 Range/Units 16:48 16:48 16:48 WBC 3.88 L (4.50-11.00) K/uL RBC 3.87 L (4.30-5.90) m/uL Hgb 11.2 L (13.5-17.5) gm/dL Hct 33.2 L (37.0-53.0) % MCV 86 (80-100) fL MCH 29 (26-34) pg MCHC 34 (32-36) gm/dL RDW Coeff of Alba 15.2 (11.5-15.5) % Plt Count 96 L (140-440) K/uL Neut % (Auto) 57.2 (42.0-72.0) % Lymph % (Auto) 25.8 (20-44) % [place] % (Auto) 13.1 H (0.0-11.0) % Eos % (Auto) 3.1 (0.0-7.0) % Baso % (Auto) 0.5 (0.0-3.0) % Neut # (Auto) 2.20 (1.7-7.0) K/uL Lymph # (Auto) 1.00 (0.90-2.90) K/uL [place] # (Auto) 0.50 (0.00-0.90) K/UL Eos # (Auto) 0.10 (0.00-0.50) K/uL Baso # (Auto) 0.00 (0.00-0.30) K/uL INR (0.91-1.10) APTT (23-33) Seconds Sodium 122 L* (135-149) mmol/L Potassium 4.8 (3.6-5.1) mmol/L Chloride 93 L (96-114) mmol/L Carbon Dioxide 24 (20-32) mmol/L BUN 12 (7-30) mg/dL Creatinine 0.9 (0.5-1.5) mg/dL Estimated Creat Clear 52.28 Estimated GFR 86 ml/min Glucose 113 (60-115) mg/dL Calcium 8.3 L (8.4-10.6) mg/dL Total Bilirubin (0.1-1.5) mg/dL Direct Bilirubin (0.0-0.5) mg/dL AST (12-35) U/L ALT (4-50) U/L Alkaline Phosphatase (40-150) U/L C-Reactive Protein 2.1 H (0.5-1.0) mg/dL NT-Pro-B Natriuret Pep pg/mL Total Protein (6.0-8.3) g/dL Albumin (3.3-5.0) g/dL SARS-CoV-2 (PCR) Negative SARS-CoV-2 (Negative) Influenza Type A (PCR) Negative PCR FLU A (Negative) Influenza Type B (PCR) Negative PCR FLU B (Negative) RSV (PCR) Negative PCR RSV (Negative) POC Troponin I (0.01-0.04) ng/ml 05/29/22 05/29/22 05/29/22 Range/Units 16:48 16:48 17:00 WBC (4.50-11.00) K/uL RBC (4.30-5.90) m/uL Hgb (13.5-17.5) gm/dL Hct (37.0-53.0) % MCV (80-100) fL MCH (26-34) pg MCHC (32-36) gm/dL RDW Coeff of Alba (11.5-15.5) % Plt Count (140-440) K/uL Neut % (Auto) (42.0-72.0) % Lymph % (Auto) (20-44) % [place] % (Auto) (0.0-11.0) % Eos % (Auto) (0.0-7.0) % Baso % (Auto) (0.0-3.0) % Neut # (Auto) (1.7-7.0) K/uL Lymph # (Auto) (0.90-2.90) K/uL [place] # (Auto) (0.00-0.90) K/UL Eos # (Auto) (0.00-0.50) K/uL Baso # (Auto) (0.00-0.30) K/uL INR 1.32 H (0.91-1.10) APTT 36 H (23-33) Seconds Sodium (135-149) mmol/L Potassium (3.6-5.1) mmol/L Chloride (96-114) mmol/L Carbon Dioxide (20-32) mmol/L BUN (7-30) mg/dL Creatinine (0.5-1.5) mg/dL Estimated Creat Clear Estimated GFR ml/min Glucose (60-115) mg/dL Calcium (8.4-10.6) mg/dL Total Bilirubin 1.3 (0.1-1.5) mg/dL Direct Bilirubin 0.6 H (0.0-0.5) mg/dL AST 55 H (12-35) U/L ALT 40 (4-50) U/L Alkaline Phosphatase 166 H (40-150) U/L C-Reactive Protein (0.5-1.0) mg/dL NT-Pro-B Natriuret Pep 6290 pg/mL Total Protein 6.6 (6.0-8.3) g/dL Albumin 3.6 (3.3-5.0) g/dL SARS-CoV-2 (PCR) (Negative) Influenza Type A (PCR) (Negative) Influenza Type B (PCR) (Negative) RSV (PCR) (Negative) POC Troponin I 0.00 L (0.01-0.04) ng/ml Discharge Plan Discharge Clinical Impression: Weakness Prescriptions: No Action clonidine HCl 0.1 mg tablet carvedilol 12.5 mg tablet amiodarone 200 mg tablet clopidogrel 75 mg tablet pramipexole 0.5 mg tablet tamsulosin 0.4 mg capsule PO gabapentin 300 mg capsule Follow Up/Referrals: Monico Modi MD [Primary Care Provider] -
[2022-05-29 17:12] LABS: Basophils Percent Auto 0.5 % (0.0-3.0); Eosinophils Percent Auto 3.1 % (0.0-7.0); Hematocrit 33.2 % (37.0-53.0); Hemoglobin* 11.2 gm/dL (13.5-17.5); Immature Granulocytes Pct Auto 0.3 %; Lymphocytes Percent Auto 25.8 % (20-44); Mean Corpuscular HGB Conc 34 gm/dL (32-36); Mean Corpuscular Hemoglobin 29 pg (26-34); Mean Corpuscular Volume 86 fL (80-100); Monocytes Percent Auto 13.1 % (0.0-11.0); Neutrophils Percent Auto 57.2 % (42.0-72.0); Platelet Count* 96 K/uL (140-440); RDW Coefficient of Variation % 15.2 % (11.5-15.5); Red Blood Count 3.87 m/uL (4.30-5.90); White Blood Count* 3.88 K/uL (4.50-11.00)
[2022-05-29 17:16] LABS: Slide Review Reflex No
[2022-05-29] MEDS: ASPIRIN 81 MG TAB.CHEW 324 MG PO (17:19)
--- NOTE | 2022-05-29 17:23 | CRLHL7_ITS ---
For Patients: As a result of the Century Cures Act, medical imaging exams and procedure reports are released immediately into your electronic medical record. You may view this report before your referring provider. If you have questions, please contact your health care provider. INDICATION: Shortness of breath. TECHNIQUE: CT chest without IV contrast. COMPARISON: CT chest dated 02/16/2021. FINDINGS: Lungs and pleura: Moderate-sized right pleural effusion and small left pleural effusion, with compressive atelectasis in the bilateral lower lobes. Few scattered subpleural ground-glass opacities in the bilateral upper lobes. Heart and vasculature: No cardiomegaly, no pericardial effusion. Atherosclerotic coronary artery disease. Thyroid and lower neck: No suspicious thyroid nodule. Mediastinum/alex: No lymphadenopathy. Chest wall: No axillary lymphadenopathy. Cardiac pacemaker is present in the left chest wall. Post median sternotomy. Upper abdomen: Mild volume ascites. Bones: Extensive multilevel degenerative changes of the spine. Postsurgical changes of the left humeral head. IMPRESSION: 1. Moderate-sized right pleural effusion and small left pleural effusion. There is associated compressive atelectasis in the bilateral lower lobes. 2. Few scattered subpleural ground-glass opacities in the bilateral upper lobes, likely reflective of multifocal infectious process. 3. Mild volume ascites noted in the upper abdomen. Please note that all CT scans at this facility use dose modulation, iterative reconstruction, and/or weight-based dosing when appropriate to reduce radiation dose to as low as reasonably achievable. Dictated by Daya Patton MD @ 05/29/2022 6:15:49 PM (Electronically Signed)
[2022-05-29 17:25] LABS: Albumin* 3.6 g/dL (3.3-5.0)
[2022-05-29 17:26] LABS: Chloride* 93 mmol/L (96-114); Potassium* 4.8 mmol/L (3.6-5.1)
[2022-05-29 17:28] LABS: Alkaline Phosphatase* 166 U/L (40-150); Aspartate Amino Transferase* 55 U/L (12-35); Bilirubin Direct* 0.6 mg/dL (0.0-0.5); Bilirubin Total* 1.3 mg/dL (0.1-1.5); Total Protein* 6.6 g/dL (6.0-8.3)
[2022-05-29 17:29] LABS: Alanine Aminotransferase* 40 U/L (4-50); Creatinine* 0.9 mg/dL (0.5-1.5); Est. Creatinine Clearance* 52.28; Estimated Glomerular Filt Rate 86 ml/min
[2022-05-29 17:30] LABS: Blood Urea Nitrogen* 12 mg/dL (7-30); Calcium* 8.3 mg/dL (8.4-10.6); Carbon Dioxide* 24 mmol/L (20-32); Glucose* 113 mg/dL (60-115)
[2022-05-29 17:31] LABS: INR 1.32 (0.91-1.10); Partial Thromboplastin Time* 36 Seconds (23-33); Prothrombin Time 17.1 Seconds; Sodium* 122 mmol/L (135-149)
[2022-05-29 17:33] LABS: C Reactive Protein* 2.1 mg/dL (0.5-1.0)
[2022-05-29 17:42] LABS: NT Pro B Type NatriureticPept* 6290 pg/mL
[2022-05-29 17:49] LABS: PCR FLU A Negative PCR FLU A (Negative); PCR FLU B Negative PCR FLU B (Negative); PCR RSV Negative PCR RSV (Negative); SARS PCR* Negative SARS-CoV-2 (Negative)
[2022-05-29] MEDS: FUROSEMIDE 10 MG/ML inj 80 MG IVP (18:30)
--- NOTE | 2022-05-29 19:43 | ED.NURSE ---
cath 16f coude attempted, met resistance, pt stated he was going to burst and stated your flimsy catheters suck let me do my own, pt attempted to straight cath with his own 16f but unable to r/t resistance, 14f coude cath attempted with success, 900cc initial output.
--- NOTE | 2022-05-29 20:38 | PM.IMHP1 ---
Hospitalist- H&P: HPI History of Present Illness Date Seen: 05/31/22 Chief complaint: Short of Breath Narrative: ADMISSION HISTORY AND PHYSICAL - HOSPITALIST Chief Complaint: My father is weak, swollen. HPI: 82 y/o WM with a history of CAD, PAD (both femoral and carotid), known severe tricuspid regurg, pulmon htn WITHOUT previous CHF history presents with weakness and edema. His daughter gives all the history both recent and remote. Anish is [place] and is without his aides tonight and falls asleep while I am speaking to his daughter. She states he has had a rough year. He had limb ischemia back in January that led to a complicated FEM-POP BYPASS with a host of complications. He ultimately went to an [facility] and has slowly being working back from this huge set back. Daughter states he has had a great month. Living independently, eating better. More jovial and his personality seem to be returning. Over the last 3 days she did not have a lot of contact with him and then yesterday, her brother sent a pictures of Anish. This reflected edema in his face/legs. His daughter came this morning to see how he was doing and noted him to be weak almost unrecognized. She brought him to our ED. In the ED: -noted to be 18 lb up from a April clinic visit -weak, not needing oxygen or tachypneic -no evidence of acute coronary syndrome -chest CT revealed bilateral effusions, multifocal airspace disease -Colon was placed and he was given 80 mg of IV Lasix and an aspirin Hospital medicine was asked to help manage his acute weakness, fluid overload likely related to CHF and possible infection I've updated the PFSH, medications and allergies in the Expanse tabs. INVESTIGATIONS: LABS/MICRO/ECG/IMAGING Afebrile since arrival Blood pressures been 150s, 140s over 50s to 70s Pulse rates been 60s Respiratory rates normal at 18 He is satting 95 to 100% room air Weight is 77.1 kilos KNOWN LAST ACCURATE WEIGHT:68.9 kg in Apr 26 at nephrology office visit CBC is remarkable for a mild leukopenia, mild anemia, thrombocytopenia INR is elevated 1.32 Sodium is at 122, last check was 130 Improved/normal renal function with a creatinine of 0.9, normal potassium mildly hypochloremic Mild elevation in his direct bilirubin and AST CRP 2.1 BNP 6300 - BASELINE, NO PREVIOUS NEGATIVE TROPONIN NO UA TONIGHT NEGATIVE RESPIRATORY SCREEN FOR VIRAL PATHOGENS CHEST CT FROM TONIGHT 1. Moderate-sized right pleural effusion and small left pleural effusion. There is associated compressive atelectasis in the bilateral lower lobes. 2. Few scattered subpleural ground-glass opacities in the bilateral upper lobes, likely reflective of multifocal infectious process. 3. Mild volume ascites noted in the upper abdomen. ECHO COMPLETED EARLIER THIS MONTH 05/06/22 Final Impressions: 1. Normal LV size, moderately increased wall thickness, mildly reduced global systolic function with an estimated EF of 45 - 50%. 2. Right ventricular cavity size is mildly enlarged, global systolic RV function is normal. 3. Basal inferior/inferoseptal segments abnormal. 4. Severely enlarged left atrium. 5. Tricuspid valve is non coapting. 6. Severe tricuspid regurgitation. 7. Severely increased estimated pulmonary pressures by tricuspid regurgitation velocity and right atrial pressure (46 mmHg plus RAP). 8. The inferior vena cava is dilated, respiratory size variation greater than 50%. ? Comparison Compared to prior exam images and report: - Tricuspid regurgitation has increased significantly. REVIEW OF SYSTEMS: 12-point ROS completed with patient and negative unless otherwise stated in HPI or below. PHYSICAL EXAM: CODE STATUS: DNR/DNI CONSTITUTIONAL: ALERT, NO SIGNIFICANT DELIRIUM, SLEEPY VITAL SIGNS: see record. HEENT: Normocephalic, atraumatic. PERRL, EOMI, conjunctivae pink, no scleral icterus. Ears and nose externally normal. Pharynx normal. NECK: NOTABLE FOR JVD. No carotid bruit, no thyromegaly, no adenopathy. CHEST: Clear to auscultation bilaterally HEART: HOLOSYSTOLIC MURMUR, NOT HARSH; MILD BRADYCARDIC, EDEMA 1-2+ IN LOWER LEGS MUSCULOSKELETAL: No gross joint deformity or swelling. NEURO: Cranial nerves intact. Grossly intact. No asymmetric findings. SKIN: No rashes, petechiae, concerning changes PSYCHIATRIC: Euthymic. ADMIT TO MEDSURG: FLOOR CARE DVT: Lovenox GI: PO intake Time spent: 70 minutes examining patient, conferring with family and patient, care staff, developing care plan [facility] Medical History (Updated 05/30/22 @ 11:46 by Cristel Araujo MD) Amiodarone toxicity BPH (benign prostatic hyperplasia) Carotid artery stenosis Chronic hyponatremia Chronic kidney disease Coronary artery disease Critical limb ischemia with history of revascularization of same extremity Generalized anxiety disorder GERD (gastroesophageal reflux disease) History of hallucinations History of Mobitz type II atrioventricular block Inguinal hernia of left side without obstruction or gangrene Lactose intolerance Mixed hyperlipidemia Non-STEMI (non-ST elevated myocardial infarction) Peripheral artery disease Peripheral neuropathy RLS (restless legs syndrome) Surgical History (Updated 05/29/22 @ 22:42 by Cathy Motta MD) History of CEA (carotid endarterectomy) History of coronary angioplasty History of laparoscopic cholecystectomy History of total hip replacement S/P CABG x 3 S/P coronary artery stent placement S/P femoral-popliteal bypass surgery S/P placement of cardiac pacemaker S/P rotator cuff repair S/P TURP Social History (Updated 05/29/22 @ 22:43 by Cathy Motta MD) Narrative: Lives in [place]. Independent. 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 Previous smoker. Quit date 1988. No alcohol use. Retired from [employer]. . Five adult children. Highest level of school completed/degree received: 12th grade, no diploma Smoking Status: Former smoker How often do you have a drink containing alcohol: never AUDIT-C Alcohol total score: 0 Non-prescribed substance use: denies use Caffeine: Yes service: No Meds Home Medications and Allergies Home Medications Medication Instructions Recorded Confirmed Type amiodarone 200 mg tablet 200 mg PO Q24H 03/13/22 05/29/22 History carvedilol 12.5 mg tablet 6.25 mg PO BID 03/13/22 05/29/22 History clonidine HCl 0.1 mg tablet 0.1 mg PO Q12H PRN 03/13/22 05/29/22 History clopidogrel 75 mg tablet 75 mg PO DAILY 03/13/22 05/29/22 History pramipexole 0.5 mg tablet 0.5 mg PO HS 03/13/22 05/29/22 History atorvastatin 80 mg tablet 80 mg PO HS 05/29/22 05/29/22 History calcium carb-magnesium carb 400 2 tab PO HS 05/29/22 05/29/22 History mg-200 mg tablet nitroglycerin 0.4 mg sublingual 0.4 mg sublingual Q5M PRN chest 05/29/22 05/29/22 History tablet pain omeprazole 40 mg capsule,delayed 40 mg PO DAILY 05/29/22 05/29/22 History release quetiapine 25 mg tablet 25 mg PO HS 05/29/22 05/29/22 History sodium chloride 1,000 mg soluble 500 mg PO BID 05/29/22 05/29/22 History tablet Allergies Allergy/AdvReac Type Severity Reaction Status Date / Time erythromycin base Allergy Verified 03/13/22 16:50 Penicillins Allergy Verified 03/13/22 16:50 Exam Const: Vital Signs, click to edit/add: Vital Signs - 24 hr 05/29/22 16:31 05/29/22 17:22 05/29/22 17:23 Temperature 97.1 F L Pulse Rate 60 60 Pulse Rate [Right Pulse Oximeter] 64 Respiratory Rate 18 Blood Pressure 142/70 H Blood Pressure [Ri ght Upper Arm] 137/62 Pulse Oximetry 100 98 95 Oxygen Delivery Me thod Room Air 05/29/22 17:30 05/29/22 17:32 05/29/22 18:00 Temperature Pulse Rate 60 60 61 Pulse Rate [Right Pulse Oximeter] Respiratory Rate Blood Pressure 140/64 H Blood Pressure [Ri ght Upper Arm] Pulse Oximetry 94 93 96 Oxygen Delivery Me thod 05/29/22 18:02 05/29/22 19:58 05/29/22 19:58 Temperature 97.6 F Pulse Rate 60 Pulse Rate [Right Pulse Oximeter] Respiratory Rate 18 18 Blood Pressure 145/76 H Blood Pressure [Ri ght Upper Arm] Pulse Oximetry 95 100 95 Oxygen Delivery Me thod Room Air Room Air Hospitalist - H&P: Result Labs Labs: Short CBC 05/29/22 Range/Units 16:48 WBC 3.88 L (4.50-11.00) K/uL Hgb 11.2 L (13.5-17.5) gm/dL Hct 33.2 L (37.0-53.0) % Plt Count 96 L (140-440) K/uL BMP 05/29/22 16:48 Sodium 122 L* Potassium 4.8 Chloride 93 L Carbon Dioxide 24 BUN 12 Creatinine 0.9 Glucose 113 Calcium 8.3 L Liver Function 05/29/22 Range/Units 16:48 Total Bilirubin 1.3 (0.1-1.5) mg/dL Direct Bilirubin 0.6 H (0.0-0.5) mg/dL AST 55 H (12-35) U/L ALT 40 (4-50) U/L Alkaline Phosphatase 166 H (40-150) U/L Albumin 3.6 (3.3-5.0) g/dL Assessment and Plan Assessment and plan (1) Congestive heart failure: Problem comment: - new diagnosis with bilateral pleural effusions, ascites - given 80mg of Lasix in ED 05/29, colon placed - negative troponin x2 - TTE 05/06/22 1. Normal LV size, moderately increased wall thickness, mildly reduced global systolic function with an estimated EF of 45 - 50%. 2. Right ventricular cavity size is mildly enlarged, global systolic RV function is normal. 3. Basal inferior/inferoseptal segments abnormal. 4. Severely enlarged left atrium. 5. Tricuspid valve is non coapting. 6. Severe tricuspid regurgitation. 7. Severely increased estimated pulmonary pressures by tricuspid regurgitation velocity and right atrial pressure (46 mmHg plus RAP). 8. The inferior vena cava is dilated, respiratory size variation greater than 50%. - has diuresed >3L on hospital day 1 - repeat TTE given significant status exchange administrator the past 1-2 weeks with no other inciting incident or change Status: Acute (2) Pneumonia, community acquired: Problem comment: - possible (GGO noted on admission imaging). No fever, WBC or cough, negative respiratory viral panel. Normal procalcitonin - will d/c Levaquin 05/30, follow clinical course closely Status: Acute (3) Chronic hyponatremia: Problem comment: - acute on chronic, likely related to CHF - per chart review: 131-134 since 2006, acutely worse in 2021, down to 124-130 in recent months - just had nephrology consult. has been on salt tabs, some concern that salt tabs contributing to edema (this was likely CHF) - 2L fluid restriction, continue salt tabs Status: Acute (4) Critical limb ischemia with history of revascularization of same extremity: Problem comment: - long complicated hx culminating in surgery in January, TCU stay - weight loss/long recovery. - no evidence of new ischemia since admission Status: Acute (5) Peripheral artery disease: Problem comment: - Previous left femoral endarterectomy 2011. Occluded, two recanalization efforts unsuccessful, then presented with critical ischemia left leg - s/p left femoral to PT bypass with reversed cephalic vein on 01/11/2022 Status: Acute (6) Coronary artery disease: Problem comment: - Non STEMI with MELLISSA in 2019 - History of CABG 1996: [facility] mid LAD, SVG to OM 1, SVG to RPDA - Multiple PTCA and stent placements Status: Acute (7) BPH (benign prostatic hyperplasia): Problem comment: - self catherizes at home Status: Acute (8) Amiodarone toxicity: Problem comment: - unclear history, sounds like history of postop bigeminy, treated with amiodarone which bumped his LFTs. Discontinued. Status: Acute (9) History of Mobitz type II atrioventricular block: Problem comment: - pacemaker placed in 2019 Status: Acute (10) Chronic kidney disease: Problem comment: - mild, trend Status: Acute (11) Peripheral neuropathy: Problem comment: - no specific treatment. hx of gabapentin - not sure why this was d/c. Status: Acute (12) GERD (gastroesophageal reflux disease): Status: Acute (13) Inguinal hernia of left side without obstruction or gangrene: Problem comment: - stable, has outpatient appt with Dr. Lopez scheduled for 05/31 to discuss elective repair (knows he will need to reschedule) Status: Acute (14) RLS (restless legs syndrome): Status: Acute (15) History of hallucinations: Problem comment: - Seroquel, small dose at bedtime seems to made quite a difference as well as improving his sodium and helping with sleep Status: Acute (16) Elevated LFTs: Problem comment: - noted 03/26. Outpatient workup for autoimmune sources negative Status: Acute (17) Ascites: Problem comment: - in addition to elevated LFTs, new - very likely related to right-sided heart failure, but will obtain abdominal u/s to evaluate further. No history of liver disease, no alcohol use - continue to trend LFTs, follow fluid balance Status: Acute (18) Normocytic anemia: Problem comment: - baseline Hgb 11-2 on chart review Status: Acute
[2022-05-29] MEDS: levoFLOXacin 500 MG TABLET PO (21:42)
--- NOTE | 2022-05-29 22:20 | PC.NURSE ---
Pt. up to floor from the ED at 1945, accompanied by dtr. Pt. is alert and oriented x4, pleasant and cooperative. Pt. ambulates independently and uses 4-wheeled walker when he feels unsteady, continent of bowel and bladder and straight caths himself at home d/t prostate hx . Lopez placed in ED d/t 80mg of lasix administered. Pt. is [place] and uses hearing aids. Dtr will bring in the AM. Pt. denies pain, N/V. Pt. denies SOB currently. Pt. on tele rhythm is paced. Cont. pulse ox. VSS, on RA. Lung sounds are clear bilaterally. +2 pitting edema to LE. Pt. c/o Left groin hernia can be felt and seen upon palpation. IV in right AC, saline locked. 1999 fluid restriction d/t Na.
[2022-05-30] VITALS (10 sets, daily range): BP systolic 145–165; BP diastolic 59–87; PULSE 60–69; RESP 18–20; TEMP 36.5–36.8; O2SAT 95–99
[2022-05-30 00:03] LABS: Magnesium* 1.8 mg/dL (1.5-2.6)
[2022-05-30 00:15] LABS: Procalcitonin* 0.07 ng/mL (<0.50)
--- NOTE | 2022-05-30 05:45 | PC.NURSE ---
[id number]: patient did not sleep much overnight, ambulated in hallway X2 with walker and SBA, no c/o pain. reports feeling much improved. edema to LE improved, no c/o SOB with ambulation or at rest. no c/o pain but does report some restlessness in legs, states this is not a new problem.
[2022-05-30] MEDS: OMEPRAZOLE 20 MG CAPSULE DR 40 MG PO (06:33)
[2022-05-30 07:19] LABS: HCO3 VBG 28 mmol/L (21-28); Ionized Calcium* 1.08 mmol/L (1.11-1.30); PCO2 VBG 44 mmHG (40-50); PO2 VBG 44.5 mmHG (25-47); pH VBG 7.414 (7.32-7.43)
[2022-05-30 07:21] LABS: Hematocrit 32.7 % (37.0-53.0); Mean Corpuscular HGB Conc 34 gm/dL (32-36); Mean Corpuscular Hemoglobin 28 pg (26-34); Mean Corpuscular Volume 84 fL (80-100); Platelet Count* 119 K/uL (140-440); Red Blood Count 3.89 m/uL (4.30-5.90); White Blood Count* 4.35 K/uL (4.50-11.00)
[2022-05-30 07:22] LABS: Slide Review Reflex No
[2022-05-30 07:38] LABS: Potassium* 4.1 mmol/L (3.6-5.1)
[2022-05-30 07:41] LABS: Creatinine* 0.9 mg/dL (0.5-1.5); Est. Creatinine Clearance* 52.28; Estimated Glomerular Filt Rate 86 ml/min
[2022-05-30 07:42] LABS: Blood Urea Nitrogen* 13 mg/dL (7-30)
[2022-05-30 07:45] LABS: Iron* 49 ug/dL (49-181)
[2022-05-30 07:54] LABS: Percent Iron Saturation 14 % (20-50); Total Iron Binding Capacity 351 ug/dL (261-462)
[2022-05-30 07:58] LABS: Procalcitonin* 0.09 ng/mL (<0.50)
[2022-05-30 08:31] LABS: Magnesium* 1.8 mg/dL (1.5-2.6)
[2022-05-30] MEDS: carvediloL 6.25 MG TABLET PO ×2 (08:41→20:32)
[2022-05-30] MEDS: CLOPIDOGREL 75 MG TABLET PO (08:41)
[2022-05-30] MEDS: SODIUM CHLORIDE 1 GM TABLET 0.5 GM PO ×2 (08:41→20:33)
[2022-05-30] MEDS: FUROSEMIDE 10 MG/ML inj 40 MG IVP ×2 (08:42→20:33)
[2022-05-30 08:44] LABS: C Reactive Protein* 2.3 mg/dL (0.5-1.0); Calcium* 8.4 mg/dL (8.4-10.6); Carbon Dioxide* 24 mmol/L (20-32); Chloride* 93 mmol/L (96-114); Glucose* 91 mg/dL (60-115); NT Pro B Type NatriureticPept* 6340 pg/mL; Sodium* 123 mmol/L (135-149); Troponin I* < 0.01 ng/mL (0.01-0.04)
--- NOTE | 2022-05-30 09:03 | PM.IMPN1 ---
Progress Note: A&P Assessment and plan (1) Congestive heart failure: Problem details: - new diagnosis with bilateral pleural effusions, ascites - given 80mg of Lasix in ED 05/29, colon placed - negative troponin x2 - TTE 05/06/22 1. Normal LV size, moderately increased wall thickness, mildly reduced global systolic function with an estimated EF of 45 - 50%. 2. Right ventricular cavity size is mildly enlarged, global systolic RV function is normal. 3. Basal inferior/inferoseptal segments abnormal. 4. Severely enlarged left atrium. 5. Tricuspid valve is non coapting. 6. Severe tricuspid regurgitation. 7. Severely increased estimated pulmonary pressures by tricuspid regurgitation velocity and right atrial pressure (46 mmHg plus RAP). 8. The inferior vena cava is dilated, respiratory size variation greater than 50%. 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 No fever, WBC or cough, negative respiratory viral panel. Normal procalcitonin - will d/c Levaquin 05/30, follow clinical course closely Status: Acute (3) Chronic hyponatremia: Problem details: - acute on chronic, likely related to CHF - per chart review: 131-134 since 2006, acutely worse in 2021, down to 124-130 in recent months - just had nephrology consult. has been on salt tabs, some concern that salt tabs contributing to edema (this was likely CHF) - 2L fluid restriction, continue salt tabs Status: Acute (4) Critical limb ischemia with history of revascularization of same extremity: Problem details: - long complicated hx culminating in surgery in January, TCU stay - weight loss/long recovery. - no evidence of new ischemia since admission Status: Acute (5) Peripheral artery disease: Problem details: - Previous left femoral endarterectomy 2011. Occluded, two recanalization efforts unsuccessful, then presented with critical ischemia left leg - s/p left femoral to PT bypass with reversed cephalic vein on 01/11/2022 Status: Acute (6) Coronary artery disease: Problem details: - Non STEMI with MELLISSA in 2019 - History of CABG 1995: Sheldon mid LAD, SVG to OM 1, SVG to RPDA - Multiple PTCA and stent placements Status: Acute (7) BPH (benign prostatic hyperplasia): Problem details: - self catherizes at home Status: Acute (8) Amiodarone toxicity: Problem details: - unclear history, sounds like history of postop bigeminy, treated with amiodarone which bumped his LFTs. Discontinued. Status: Acute (9) History of Mobitz type II atrioventricular block: Problem details: - pacemaker placed in 2019 Status: Acute (10) Chronic kidney disease: Problem details: - mild, trend Status: Acute (11) Peripheral neuropathy: Problem details: - no specific treatment. hx of gabapentin - not sure why this was d/c. Status: Acute (12) GERD (gastroesophageal reflux disease): Status: Acute (13) Inguinal hernia of left side without obstruction or gangrene: Problem details: - stable, has outpatient appt with Dr. Lopez scheduled for 05/31 to discuss elective repair (knows he will need to reschedule) Status: Acute (14) RLS (restless legs syndrome): Status: Acute (15) History of hallucinations: Problem details: - Seroquel, small dose at bedtime seems to made quite a difference as well as improving his sodium and helping with sleep Status: Acute (16) Ascites: Problem details: - in addition to elevated LFTs, new - very likely related to right-sided heart failure, but will obtain abdominal u/s to evaluate further. No history of liver disease, no alcohol use - continue to trend LFTs, follow fluid balance Status: Acute Plan - abdominal ultrasound today - TTE ordered (to be done 05/31 given holiday hours) - continue diuresis with IV Lasix, may be able to transition to oral diuretics tomorrow - PT and OT following - daughter Bailey updated by phone, questions answered Subjective Date Seen: 05/30/22 Interval history: No acute events overnight. Doing notes that he did not sleep well last night, has no other concerns for hospitalist team. His left inguinal hernia remains reducible, intermittently uncomfortable (query 2/2 ascites). He is diuresing quite well (down > 3 L). Sodium stable to slightly improved, asymptomatic. Troponin remains negative. Exam Narrative: Exam Narrative: GEN: Alert and oriented, answering questions appropriately and laying in bed HEENT: Normal external ears, EOMIs bilaterally, mild right mouth droop noted. Upon questioning, this is chronic and related to recent dental work CV: RRR, systolic murmur heard best at left upper sternal border, no radiation R: Fine crackles bilateral bases, mild decrease in air movement, no wheezing Abdomen: Positive fluid wave noted, left inguinal hernia noted and reducible without ttp Ext: wwp, no concerning edema Skin: No concerning skin lesions or rashes on exposed skin Neuro: No focal deficits, no resting tremor, gait not observed Psych: Appropriate Const: Vital Signs, click to edit/add: Vital Signs - 24 hr 05/29/22 16:31 05/29/22 17:22 05/29/22 17:23 Temperature 97.1 F L Pulse Rate 60 60 Pulse Rate [Left A pical] Pulse Rate [Pulse Oximeter] Pulse Rate [Right Pulse Oximeter] 64 Respiratory Rate 18 Blood Pressure 142/70 H Blood Pressure [Ri ght Arm] Blood Pressure [Ri ght Upper Arm] 137/62 Pulse Oximetry 100 98 95 Oxygen Delivery Me thod Room Air 05/29/22 17:30 05/29/22 17:32 05/29/22 18:00 Temperature Pulse Rate 60 60 61 Pulse Rate [Left A pical] Pulse Rate [Pulse Oximeter] Pulse Rate [Right Pulse Oximeter] Respiratory Rate Blood Pressure 140/64 H Blood Pressure [Ri ght Arm] Blood Pressure [Ri ght Upper Arm] Pulse Oximetry 94 93 96 Oxygen Delivery Me thod 05/29/22 18:02 05/29/22 19:58 05/29/22 19:58 Temperature 97.6 F Pulse Rate 60 Pulse Rate [Left A pical] Pulse Rate [Pulse Oximeter] Pulse Rate [Right Pulse Oximeter] Respiratory Rate 18 18 Blood Pressure 145/76 H Blood Pressure [Ri ght Arm] Blood Pressure [Ri ght Upper Arm] Pulse Oximetry 95 100 95 Oxygen Delivery Me thod Room Air Room Air 05/29/22 20:43 05/29/22 20:43 05/29/22 20:43 Temperature Pulse Rate 60 Pulse Rate [Left A pical] Pulse Rate [Pulse Oximeter] Pulse Rate [Right Pulse Oximeter] Respiratory Rate 18 Blood Pressure Blood Pressure [Ri ght Arm] Blood Pressure [Ri ght Upper Arm] Pulse Oximetry 97 97 Oxygen Delivery Me thod Room Air 05/29/22 20:43 05/29/22 23:00 05/29/22 23:00 Temperature 97.6 F 98 F Pulse Rate Pulse Rate [Left A pical] 61 Pulse Rate [Pulse Oximeter] 65 65 Pulse Rate [Right Pulse Oximeter] Respiratory Rate 18 18 18 Blood Pressure Blood Pressure [Ri ght Arm] 139/66 Blood Pressure [Ri ght Upper Arm] Pulse Oximetry 97 95 Oxygen Delivery Me thod Room Air Room Air 05/30/22 01:08 05/30/22 03:00 05/30/22 04:19 Temperature Pulse Rate 61 Pulse Rate [Left A pical] Pulse Rate [Pulse Oximeter] 60 Pulse Rate [Right Pulse Oximeter] Respiratory Rate 18 Blood Pressure Blood Pressure [Ri ght Arm] 157/67 H Blood Pressure [Ri ght Upper Arm] Pulse Oximetry 95 Oxygen Delivery Me thod Room Air 05/30/22 07:00 05/30/22 07:00 Temperature 98.3 F Pulse Rate Pulse Rate [Left A pical] 68 68 Pulse Rate [Pulse Oximeter] Pulse Rate [Right Pulse Oximeter] Respiratory Rate 20 20 Blood Pressure Blood Pressure [Ri ght Arm] 165/72 H Blood Pressure [Ri ght Upper Arm] Pulse Oximetry 98 Oxygen Delivery Me thod Room Air Labs Labs: Laboratory Results - last 24 hr 05/29/22 05/29/22 05/29/22 16:48 16:48 16:48 WBC 3.88 L RBC 3.87 L Hgb 11.2 L Hct 33.2 L MCV 86 MCH 29 MCHC 34 RDW Coeff of Alba 15.2 Plt Count 96 L Neut % (Auto) 57.2 Lymph % (Auto) 25.8 Cole % (Auto) 13.1 H Eos % (Auto) 3.1 Baso % (Auto) 0.5 Neut # (Auto) 2.20 Lymph # (Auto) 1.00 Cole # (Auto) 0.50 Eos # (Auto) 0.10 Baso # (Auto) 0.00 INR APTT VBG pH VBG pCO2 VBG pO2 VBG HCO3 Sodium 122 L* Potassium 4.8 Chloride 93 L Carbon Dioxide 24 BUN 12 Creatinine 0.9 Estimated Creat Clear 52.28 Estimated GFR 86 Glucose 113 Calcium 8.3 L Ionized Calcium Chuy Magnesium 1.8 Iron TIBC % Saturation Total Bilirubin Direct Bilirubin AST ALT Alkaline Phosphatase Troponin I C-Reactive Protein 2.1 H NT-Pro-B Natriuret Pep Total Protein Albumin Procalcitonin 0.07 SARS-CoV-2 (PCR) Negative SARS-CoV-2 Influenza Type A (PCR) Negative PCR FLU A Influenza Type B (PCR) Negative PCR FLU B RSV (PCR) Negative PCR RSV POC Troponin I 05/29/22 05/29/22 05/29/22 16:48 16:48 17:00 WBC RBC Hgb Hct MCV MCH MCHC RDW Coeff of Alba Plt Count Neut % (Auto) Lymph % (Auto) Cole % (Auto) Eos % (Auto) Baso % (Auto) Neut # (Auto) Lymph # (Auto) Cole # (Auto) Eos # (Auto) Baso # (Auto) INR 1.32 H APTT 36 H VBG pH VBG pCO2 VBG pO2 VBG HCO3 Sodium Potassium Chloride Carbon Dioxide BUN Creatinine Estimated Creat Clear Estimated GFR Glucose Calcium Ionized Calcium [place]uy Magnesium Iron TIBC % Saturation Total Bilirubin 1.3 Direct Bilirubin 0.6 H AST 55 H ALT 40 Alkaline Phosphatase 166 H Troponin I C-Reactive Protein NT-Pro-B Natriuret Pep 6290 Total Protein 6.6 Albumin 3.6 Procalcitonin SARS-CoV-2 (PCR) Influenza Type A (PCR) Influenza Type B (PCR) RSV (PCR) POC Troponin I 0.00 L 05/30/22 05/30/22 05/30/22 06:12 06:12 06:12 WBC 4.35 L RBC 3.89 L Hgb 11.0 L Hct 32.7 L MCV 84 MCH 28 MCHC 34 RDW Coeff of Alba Plt Count 119 L Neut % (Auto) Lymph % (Auto) Cole % (Auto) Eos % (Auto) Baso % (Auto) Neut # (Auto) Lymph # (Auto) Cole # (Auto) Eos # (Auto) Baso # (Auto) INR APTT VBG pH VBG pCO2 VBG pO2 VBG HCO3 Sodium 123 L* Potassium 4.1 Chloride 93 L Carbon Dioxide 24 BUN 13 Creatinine 0.9 Estimated Creat Clear 52.28 Estimated GFR 86 Glucose 91 Calcium 8.4 Ionized Calcium [place] Magnesium 1.8 Iron 49 TIBC 351 % Saturation 14 L Total Bilirubin Direct Bilirubin AST ALT Alkaline Phosphatase Troponin I < 0.01 L C-Reactive Protein 2.3 H NT-Pro-B Natriuret Pep 6340 Total Protein Albumin Procalcitonin 0.09 SARS-CoV-2 (PCR) Influenza Type A (PCR) Influenza Type B (PCR) RSV (PCR) POC Troponin I 05/30/22 06:12 WBC RBC Hgb Hct MCV MCH MCHC RDW Coeff of Alba Plt Count Neut % (Auto) Lymph % (Auto) Cole % (Auto) Eos % (Auto) Baso % (Auto) Neut # (Auto) Lymph # (Auto) Cole # (Auto) Eos # (Auto) Baso # (Auto) INR APTT VBG pH 7.414 VBG pCO2 44 VBG pO2 44.5 VBG HCO3 28 Sodium Potassium Chloride Carbon Dioxide BUN Creatinine Estimated Creat Clear Estimated GFR Glucose Calcium Ionized Calcium Chuy 1.08 L Magnesium Iron TIBC % Saturation Total Bilirubin Direct Bilirubin AST ALT Alkaline Phosphatase Troponin I C-Reactive Protein NT-Pro-B Natriuret Pep Total Protein Albumin Procalcitonin SARS-CoV-2 (PCR) Influenza Type A (PCR) Influenza Type B (PCR) RSV (PCR) POC Troponin I
--- NOTE | 2022-05-30 11:37 | CRLHL7_ITS ---
For Patients: As a result of the Century Cures Act, medical imaging exams and procedure reports are released immediately into your electronic medical record. You may view this report before your referring provider. If you have questions, please contact your health care provider. Scratch INDICATION: Right upper quadrant abdomen pain TECHNIQUE: Ultrasound abdomen limited. Sonographic images of the right upper quadrant were obtained using brock-scale and color Doppler images. COMPARISON: None FINDINGS: Overall exam is limited due to non NPO status. The liver demonstrates grossly preserved echogenicity with a minimal amount of ascites fluid. IMPRESSION: Grossly normal appearance of the liver with minimal ascites. No focal abnormality is identified. Dictated by Donovan Zamarripa MD @ 05/30/2022 3:07:33 PM (Electronically Signed)
--- NOTE | 2022-05-30 12:06 | RESP.RT ---
Patient sitting up in bed, on room air, SaO2 95%, breathing regular/easy, BBS diminished in bases with fine crackles inpiratory/expiratory, more diminished in both upper lobes.
[2022-05-30 12:26] LABS: Troponin I* < 0.01 ng/mL (0.01-0.04)
--- NOTE | 2022-05-30 18:24 | PC.NURSE ---
End of Shift Note: Patient has been up and about in his room this shift. Did complain of chest pain around lunch time today and did an EKG and lab work and everything was ok. Chest pain subsided without any intervention. Jessica has been patent. Did try to sleep intermittently as he says he did not sleep last night. will continue to monitor.
[2022-05-30] MEDS: QUETIAPINE 25 MG TABLET PO (20:32)
[2022-05-30] MEDS: ATORVASTATIN CALCIUM 40 MG TABLET 80 MG PO (20:32)
[2022-05-30] MEDS: PRAMIPEXOLE 0.5 MG TABLET PO (20:33)
[2022-05-30] MEDS: MELATONIN 3 MG TABLET PO (22:29)
[2022-05-31 03:00] VITALS: BP 135/64; PULSE 64; RESP 18; TEMP 36.8; O2SAT 93
--- NOTE | 2022-05-31 05:50 | PC.NURSE ---
Shift note: Pt is doing well, had adequate sleep. Vitally stable, denied any pain. Pt is independent in room.
[2022-05-31 06:25] LABS: Basophils Percent Auto 0.6 % (0.0-3.0); Eosinophils Percent Auto 3.9 % (0.0-7.0); Hematocrit 31.6 % (37.0-53.0); Hemoglobin* 10.9 gm/dL (13.5-17.5); Immature Granulocytes Pct Auto 0.6 %; Lymphocytes Percent Auto 32.1 % (20-44); Mean Corpuscular HGB Conc 35 gm/dL (32-36); Mean Corpuscular Hemoglobin 29 pg (26-34); Mean Corpuscular Volume 84 fL (80-100); Monocytes Percent Auto 16.9 % (0.0-11.0); Neutrophils Percent Auto 45.9 % (42.0-72.0); Platelet Count* 106 K/uL (140-440); Red Blood Count 3.78 m/uL (4.30-5.90); White Blood Count* 3.08 K/uL (4.50-11.00)
[2022-05-31 06:28] LABS: Slide Review Reflex No
[2022-05-31 06:41] LABS: Albumin* 3.3 g/dL (3.3-5.0); Chloride* 96 mmol/L (96-114)
[2022-05-31 06:42] LABS: Potassium* 3.1 mmol/L (3.6-5.1); Sodium* 128 mmol/L (135-149)
[2022-05-31 06:44] LABS: Alanine Aminotransferase* 36 U/L (4-50); Alkaline Phosphatase* 147 U/L (40-150); Aspartate Amino Transferase* 57 U/L (12-35); Bilirubin Total* 1.3 mg/dL (0.1-1.5); Blood Urea Nitrogen* 12 mg/dL (7-30); Carbon Dioxide* 26 mmol/L (20-32); Creatinine* 0.9 mg/dL (0.5-1.5); Est. Creatinine Clearance* 52.28; Estimated Glomerular Filt Rate 86 ml/min; Total Protein* 6.2 g/dL (6.0-8.3)
[2022-05-31 06:45] LABS: Calcium* 8.4 mg/dL (8.4-10.6); Glucose* 87 mg/dL (60-115)
[2022-05-31] MEDS: OMEPRAZOLE 20 MG CAPSULE DR 40 MG PO (06:46)
[2022-05-31 06:59] LABS: Procalcitonin* 0.08 ng/mL (<0.50)
[2022-05-31 07:00] VITALS: BP 180/69; PULSE 63; PULSE 64; RESP 18; TEMP 36.6; O2SAT 97
[2022-05-31 07:00] LABS: NT Pro B Type NatriureticPept* 4750 pg/mL
[2022-05-31] MEDS: FUROSEMIDE 10 MG/ML inj 40 MG IVP (09:07)
[2022-05-31] MEDS: SODIUM CHLORIDE 1 GM TABLET 0.5 GM PO ×2 (09:07→21:14)
[2022-05-31] MEDS: CLOPIDOGREL 75 MG TABLET PO (09:07)
[2022-05-31] MEDS: carvediloL 6.25 MG TABLET PO ×2 (09:07→21:14)
[2022-05-31] MEDS: POTASSIUM CHLORIDE 10 MEQ CAPSULE ER 20 MEQ PO ×2 (10:31→18:08)
[2022-05-31 11:00] VITALS: BP 138/67; PULSE 60; RESP 18; TEMP 36.5; O2SAT 98
--- NOTE | 2022-05-31 11:18 | NUTR.NU ---
RDN with diet education related to new diagnosis of CHF. RDN visited with patient whom is hard of hearing and had difficultly hearing during visit. He reports he follows a low sodium diet at home and tries to avoid butter and margarine. Patient agreed for RDN to contact patient's daughter and designated caregiver (Bailey) for diet education. RDN left diet educational materials with patient in his room. RDN contacted Bailey. Nutrition education provided on a low sodium diet related to congestive heart failure. Verbal and written information provided. Handouts provided from [employer] on heart failure nutrition therapy, sodium content of foods, heart healthy label reading tips, sodium-free flavoring tips and heart healthy cooking and shopping tips. RDN's contact information was provided and patient was encouraged to call with questions.
--- NOTE | 2022-05-31 13:09 | PM.IMPN1 ---
Progress Note: A&P Assessment and plan (1) Congestive heart failure: Problem details: - new diagnosis with bilateral pleural effusions, ascites - given 80mg of Lasix in ED 05/29, colon placed - negative troponin x2 - IV lasix continued and now back at baseline weight (69Kg) -switching to po torsemide today -adding potassium Status: Acute (2) Acute hypokalemia: Problem details: As expected from aggressive diuretic therapy. Adding back p.o. potassium and following Status: Acute (3) Pneumonia, community acquired: Problem details: - possible (GGO noted on admission imaging). No fever, WBC or cough, negative respiratory viral panel. Normal procalcitonin - will d/c Levaquin 05/30, follow clinical course closely -no further antibiotics have been ordered Status: Acute (4) Chronic hyponatremia: Problem details: - acute on chronic, likely related to CHF - improving nicely - per chart review: 131-134 since 2006, acutely worse in 2021, down to 124-130 in recent months - just had nephrology consult. has been on salt tabs, some concern that salt tabs contributing to edema (this was likely CHF) - 2L fluid restriction, continue salt tabs Status: Acute (5) Critical limb ischemia with history of revascularization of same extremity: Problem details: - long complicated hx culminating in surgery in January, TCU stay - weight loss/long recovery. - no evidence of new ischemia since admission Status: Acute (6) Peripheral artery disease: Problem details: - Previous left femoral endarterectomy 2011. Occluded, two recanalization efforts unsuccessful, then presented with critical ischemia left leg - s/p left femoral to PT bypass with reversed cephalic vein on 01/11/2022 Status: Acute (7) Coronary artery disease: Problem details: - Non STEMI with MELLISSA in 2019 - History of CABG 1995: Sheldon mid LAD, SVG to OM 1, SVG to RPDA - Multiple PTCA and stent placements Status: Acute (8) BPH (benign prostatic hyperplasia): Problem details: - self catherizes at home Status: Acute (9) Amiodarone toxicity: Problem details: - unclear history, sounds like history of postop bigeminy, treated with amiodarone which bumped his LFTs. Discontinued. Status: Acute (10) History of Mobitz type II atrioventricular block: Problem details: - pacemaker placed in 2019 Status: Acute (11) Chronic kidney disease: Problem details: - mild, trend Status: Acute (12) Peripheral neuropathy: Problem details: - no specific treatment. hx of gabapentin - not sure why this was d/c. Status: Acute (13) GERD (gastroesophageal reflux disease): Status: Acute (14) Inguinal hernia of left side without obstruction or gangrene: Problem details: - stable, has outpatient appt with Dr. Lopez scheduled for 05/31 to discuss elective repair (knows he will need to reschedule) Status: Acute (15) RLS (restless legs syndrome): Status: Acute (16) History of hallucinations: Problem details: - Seroquel, small dose at bedtime seems to made quite a difference as well as improving his sodium and helping with sleep Status: Acute (17) Elevated LFTs: Problem details: - noted 03/26. Outpatient workup for autoimmune sources negative Status: Acute (18) Ascites: Problem details: - in addition to elevated LFTs, new - very likely related to right-sided heart failure, abdominal ultrasound was negative. No history of liver disease, no alcohol use - continue to trend LFTs, follow fluid balance Status: Acute (19) Normocytic anemia: Problem details: - baseline Hgb 11-2 on chart review Status: Acute Subjective Date Seen: 05/31/22 Interval history: Daily Progress Note - Hospital Medicine Day #:3 CC: Much improved. Weight this morning is back to his baseline. He is smiling. He is moving much better in bed. Abdominal ultrasound yesterday was negative. OVERNIGHT UPDATES FROM STAFF & MED, LAB, IMAGING UPDATES Blood pressure 138/67, pulse 60, resp is 18, temp afebrile 98% on room air CBC unchanged for chronic abnormalities Potassium is dropped to 3.1, sodium is up to 128. Renal function is intact. Review of Systems: See subjective Cardiac: No new chest pain/pressure/palpitations. Respiratory: no new dyspnea. GI: No abdominal bloating Objective: Vitals: see above Lungs: Clear. Cardiac: S1S2. edema resolved Disposition/Potential discharge - Likely to return to previous living situation. Total time is 35 minutes with greater than 50% spent in counseling and coordination of care. Exam Const: Vital Signs, click to edit/add: Vital Signs - 24 hr 05/30/22 15:00 05/30/22 15:00 05/30/22 15:00 Temperature 97.7 F Pulse Rate Pulse Rate [Left A pical] 60 Pulse Rate [Pulse Oximeter] Respiratory Rate 20 Blood Pressure [Ri ght Arm] 150/59 H Pulse Oximetry 99 99 99 Oxygen Delivery Wv thod Room Air Room Air 05/30/22 19:00 05/30/22 23:00 05/30/22 23:00 Temperature 98.1 F Pulse Rate 61 Pulse Rate [Left A pical] 67 Pulse Rate [Pulse Oximeter] Respiratory Rate 18 Blood Pressure [Ri ght Arm] 160/71 H Pulse Oximetry 97 96 Oxygen Delivery Wv thod Room Air 05/30/22 23:00 05/30/22 23:00 05/31/22 03:00 Temperature 98.1 F 98.2 F Pulse Rate Pulse Rate [Left A pical] 69 64 Pulse Rate [Pulse Oximeter] 64 Respiratory Rate 18 18 18 Blood Pressure [Ri ght Arm] 154/87 H 135/64 Pulse Oximetry 96 96 [facility] Room Air 05/31/22 07:00 05/31/22 07:00 05/31/22 07:00 Temperature Pulse Rate 63 Pulse Rate [Left A pical] Pulse Rate [Pulse Oximeter] 64 Respiratory Rate 18 Blood Pressure [Ri ght Arm] Pulse Oximetry 97 Oxygen Delivery Me thod 05/31/22 07:00 05/31/22 07:00 05/31/22 11:00 Temperature 97.9 F 97.7 F Pulse Rate Pulse Rate [Left A pical] Pulse Rate [Pulse Oximeter] 64 60 Respiratory Rate 18 18 18 Blood Pressure [Ri ght Arm] 180/69 H 138/67 Pulse Oximetry 97 97 98 Oxygen Delivery Wv thod Room Air Room Air Room Air Labs Labs: Laboratory Results - last 24 hr 05/31/22 05/31/22 06:11 06:11 WBC 3.08 L RBC 3.78 L Hgb 10.9 L Hct 31.6 L MCV 84 MCH 29 MCHC 35 RDW Coeff of Alba 15.0 Plt Count 106 L Neut % (Auto) 45.9 Lymph % (Auto) 32.1 [place] % (Auto) 16.9 H Eos % (Auto) 3.9 Baso % (Auto) 0.6 Neut # (Auto) 1.40 L Lymph # (Auto) 1.00 [place] # (Auto) 0.50 Eos # (Auto) 0.10 Baso # (Auto) 0.00 Sodium 128 L Potassium 3.1 L Chloride 96 Carbon Dioxide 26 BUN 12 Creatinine 0.9 Estimated Creat Clear 52.28 Estimated GFR 86 Glucose 87 Calcium 8.4 Total Bilirubin 1.3 AST 57 H ALT 36 Alkaline Phosphatase 147 NT-Pro-B Natriuret Pep 4750 Total Protein 6.2 Albumin 3.3 Procalcitonin 0.08
[2022-05-31 15:00] VITALS: BP 146/69; PULSE 64; RESP 18; TEMP 37; O2SAT 98
[2022-05-31] MEDS: TORSEMIDE 5 MG TABLET 10 MG PO (15:14)
--- NOTE | 2022-05-31 15:18 | PC.NURSE ---
Pt. is alert and oriented x4, pleasant and cooperative. Pt. ambulates independently. Pt is continent of bowel and bladder and straight caths himself at home d/t prostate hx . Lopez removed today @ 1130. Pt. is [place] and uses hearing aids. Pt. denies pain, N/V. Pt. denies SOB. Pt. on tele rhythm is paced. Cont. pulse ox. VSS, on RA. Lung sounds are clear bilaterally. Pt. c/o Left groin hernia can be felt and seen upon palpation. IV in right AC, saline locked. 1999 fluid restriction.
[2022-05-31 19:00] VITALS: BP 148/61; PULSE 57; RESP 16; TEMP 36.8; O2SAT 98
[2022-05-31] MEDS: ATORVASTATIN CALCIUM 40 MG TABLET 80 MG PO (21:14)
[2022-05-31] MEDS: QUETIAPINE 25 MG TABLET PO (21:14)
[2022-05-31] MEDS: PRAMIPEXOLE 0.5 MG TABLET PO (21:15)
[2022-06-01] MEDS: MELATONIN 3 MG TABLET PO (00:27)
[2022-06-01 01:00] VITALS: BP 163/57; PULSE 69; RESP 14; TEMP 37; O2SAT 93
[2022-06-01 04:10] VITALS: BP 153/60; PULSE 66; RESP 14; TEMP 36.3; O2SAT 96
--- NOTE | 2022-06-01 06:05 | PC.NURSE ---
Pt pleasant and cooperative. Alert and oriented to self and place. Pt denies pain but reports restless legs. Pt SBA with walker and gait belt. Pt walked in bob x2. Complied with fluid restriction. Pt was up several times during the night.
[2022-06-01] MEDS: OMEPRAZOLE 20 MG CAPSULE DR 40 MG PO (06:53)
[2022-06-01 06:57] LABS: Chloride* 97 mmol/L (96-114); Potassium* 3.7 mmol/L (3.6-5.1); Sodium* 131 mmol/L (135-149)
[2022-06-01 07:00] LABS: Carbon Dioxide* 29 mmol/L (20-32); Creatinine* 1.2 mg/dL (0.5-1.5); Est. Creatinine Clearance* 43.57; Estimated Glomerular Filt Rate 61 ml/min
[2022-06-01 07:01] LABS: Blood Urea Nitrogen* 15 mg/dL (7-30); Calcium* 8.7 mg/dL (8.4-10.6); Glucose* 92 mg/dL (60-115)
[2022-06-01 07:30] VITALS: BP 125/53; PULSE 67; RESP 16; TEMP 36.9; O2SAT 97
[2022-06-01] MEDS: ACETAMINOPHEN 325 MG TABLET PO (09:39)
[2022-06-01] MEDS: POTASSIUM CHLORIDE 10 MEQ CAPSULE ER 20 MEQ PO (09:39)
[2022-06-01] MEDS: carvediloL 6.25 MG TABLET PO (09:40)
[2022-06-01] MEDS: TORSEMIDE 20 MG TABLET PO (09:41)
[2022-06-01] MEDS: SODIUM CHLORIDE 1 GM TABLET 0.5 GM PO (09:42)
[2022-06-01] MEDS: CLOPIDOGREL 75 MG TABLET PO (09:47)
[2022-06-01] MEDS: polyethylene glycoL 3350 17 GM PACK PO (10:23)
--- NOTE | 2022-06-01 14:46 | PC.NURSE ---
PLEASE SEE EMAR FOR MEDICATIONS PROVIDED. PT HAD PRN TYLENOL 975 MG FOR C/O BURNING TOE PAIN. DENIES CP OR SOB. EVAL BY DR. RODRIGUEZ. PT VERBALIZED UNDERSTANDING OF D/C DIAGNOSIS, HOME MEDS, CHF, F/UP APPT WITH DR. MIKE AND SX TO REPORT URGENTLY TO MD. DISCHARGED VIA W/C IN POSSESSION OF HIS PERSONAL BELONGINGS WITH A FRIEND TRANSPORTATION AT 1350 PM.
--- NOTE | 2022-06-01 17:55 | PM.DS1 ---
DS: Providers Provider Date Seen: 06/01/22 Date of admission: 05/30/22 11:57 Primary care physician: Monico Modi MD Admitting Clinician: Cathy Motta MD Consults: 05/29/22 20:43 Consult to Occupational Therapy [CONS] Routine Comment: Reason(s) for OT Consult:: Evaluate and Treat Any Restrictions?:: No Restrictions Consult to Physical Therapy [CONS] Routine Comment: Reason(s) for PT Consult:: Evaluate and Treat Any Restrictions?:: No Restrictions Consult to Certified Optician [CONS] Routine Comment: Reason for Consult:: Social Service Consult Attending Physician on discharge: Jyothi Motta MD Date of Discharge: 06/01/22 DS: Diagnosis Discharge Diagnosis (1) Congestive heart failure: Status: Acute Problem details: - new diagnosis with bilateral pleural effusions, ascites - given 80mg of Lasix in ED 05/29, colon placed - negative troponin x2 - IV lasix continued and now back at baseline weight (69Kg) -discharged on toresmide and potassium replacement -echo done 05/06/22 was not updated, could consider (2) Acute hypokalemia: Status: Acute Problem details: As expected from aggressive diuretic therapy. Adding back p.o. potassium and following (3) Pneumonia, community acquired: Status: Acute Problem details: - possible (GGO noted on admission imaging). No fever, WBC or cough, negative respiratory viral panel. Normal procalcitonin - will d/c Levaquin 05/30, follow clinical course closely -no further antibiotics have been ordered (4) Chronic hyponatremia: Status: Acute Problem details: - acute on chronic, likely related to CHF - improving nicely - per chart review: 131-134 since 2006, acutely worse in 2021, down to 124-130 in recent months - just had nephrology consult. has been on salt tabs, some concern that salt tabs contributing to edema (this was likely CHF) - 2L fluid restriction, continue salt tabs (5) Critical limb ischemia with history of revascularization of same extremity: Status: Acute Problem details: - long complicated hx culminating in surgery in January, TCU stay - weight loss/long recovery. - no evidence of new ischemia since admission (6) Peripheral artery disease: Status: Acute Problem details: - Previous left femoral endarterectomy 2011. Occluded, two recanalization efforts unsuccessful, then presented with critical ischemia left leg - s/p left femoral to PT bypass with reversed cephalic vein on 01/11/2022 (7) Coronary artery disease: Status: Acute Problem details: - Non STEMI with MELLISSA in 2019 - History of CABG 1996: [place] mid LAD, SVG to OM 1, SVG to RPDA - Multiple PTCA and stent placements (8) BPH (benign prostatic hyperplasia): Status: Acute Problem details: - self catherizes at home (9) Amiodarone toxicity: Status: Acute Problem details: - unclear history, sounds like history of postop bigeminy, treated with amiodarone which bumped his LFTs. Discontinued. (10) History of Mobitz type II atrioventricular block: Status: Acute Problem details: - pacemaker placed in 2019 (11) Chronic kidney disease: Status: Acute Problem details: - mild, trend (12) Peripheral neuropathy: Status: Acute Problem details: - no specific treatment. hx of gabapentin - not sure why this was d/c. (13) GERD (gastroesophageal reflux disease): Status: Acute (14) Inguinal hernia of left side without obstruction or gangrene: Status: Acute Problem details: - stable, has outpatient appt with Dr. Lopez scheduled for 05/31 to discuss elective repair (knows he will need to reschedule) (15) RLS (restless legs syndrome): Status: Acute (16) History of hallucinations: Status: Acute Problem details: - Seroquel, small dose at bedtime seems to made quite a difference as well as improving his sodium and helping with sleep (17) Elevated LFTs: Status: Acute Problem details: - noted 03/26. Outpatient workup for autoimmune sources negative (18) Ascites: Status: Acute Problem details: - in addition to elevated LFTs, new - very likely related to right-sided heart failure, abdominal ultrasound was negative. No history of liver disease, no alcohol use - continue to trend LFTs, follow fluid balance (19) Normocytic anemia: Status: Acute Problem details: - baseline Hgb 11-2 on chart review DS: Summary Hospital Course Hospital Course: HOSPITALIST DISCHARGE SUMMARY ATTENDING PHYSICIAN: Cathy Motta MD FINAL DIAGNOSIS: CHF, systolic acute preserved EF hypokalemia acute on chronic hyponatremia HOSPITAL FOLLOWUP ISSUES: 1. weight and edema. goal weight is 69kg. follow BMP for WILLIAM and hypokalemia. dismissed on oral toresmide and potassium 2. consider new echo and cards within 1-2 months REFERRALS WHILE ADMITTED: pt/ot REFERRALS AFTER DISCHARGE: None BRIEF HOSPITAL COURSE: admitted for CHF/edema - but not in respiratory distress. CHF was a new diagnosis despite his complex medical history. no oxygen required but weak and swollen. up 18 labs from April. trigger for CHF unclear. echo had just been done on 05/06/22 so this wasn't repeated. until this hospitalization was diuretic naive so he responded briskly to IV lasix. he did have a catheter but self caths at a baseline. He did extremely well and dismissed faster than expected. SUBSTANTIVE NOTATIONS ON IMAGING, LAB, MICROBIOLOGY/PATHOLOGY STUDIES: BNP peaked at 6290. hyponatremia corrected back to low baseliine of 131. mild hypokalemia corrected with PO supplement discharge creat was 1.[address] 1. Moderate-sized right pleural effusion and small left pleural effusion. There is associated compressive atelectasis in the bilateral lower lobes. 2. Few scattered subpleural ground-glass opacities in the bilateral upper lobes, likely reflective of multifocal infectious process. 3. Mild volume ascites noted in the upper abdomen. DISCHARGE MEDICATIONS: See Reconciled list - SIGNIFICANT CHANGES: PO diuretic and potassium REVIEW OF SYSTEMS No new chest pain or dyspnea Pain controlled No voiding difficulties Tolerating diet challenge PHYSICAL EXAM: CONSTITUTIONAL: smiling; much brighter than when admitted VITAL SIGNS: see record. HEENT: Normocephalic, atraumatic. PERRL, EOMI, conjunctivae pink, no scleral icterus. Ears and nose externally normal. Pharynx normal. NECK: No JVD. No carotid bruit, no thyromegaly, no adenopathy. CHEST: Clear to auscultation bilaterally. HEART: S1 and S2 normal. Edema trace to 1+ - much improved. ABDOMEN: Soft, nontender. Normal bowel sounds. MUSCULOSKELETAL: No gross joint deformity or swelling. NEURO: Cranial nerves intact. Grossly intact. No asymmetric findings. SKIN: No rashes, petechiae, concerning changes PSYCHIATRIC: Mood euthymic. DISPOSITION: home with daughter. Time spent on discharge 37 minutes. Status at Discharge Functional status at discharge: uses cane/walker Overall status at discharge: patient is progressing back to baseline Time Spent with Patient Time attestation: Total time spent providing and/or coordinating discharge services: Time spent: Greater than 30 minutes Exam Const: Vital Signs, click to edit/add: Vital Signs - 24 hr 05/31/22 19:00 06/01/22 01:00 06/01/22 01:00 Temperature 98.2 F Pulse Rate [Left A pical] 57 L 69 Pulse Rate [Pulse Oximeter] 57 L Respiratory Rate 16 Blood Pressure [Ri ght Arm] 148/61 H Pulse Oximetry 98 93 Oxygen Delivery Me thod Room Air 06/01/22 01:00 06/01/22 01:00 06/01/22 04:10 Temperature 98.6 F 97.4 F L Pulse Rate [Left A pical] 69 66 Pulse Rate [Pulse Oximeter] Respiratory Rate 14 14 14 Blood Pressure [Ri ght Arm] 163/57 H 153/60 H Pulse Oximetry 93 93 96 Oxygen Delivery Me thod Room Air Room Air Room Air 06/01/22 07:30 06/01/22 07:30 06/01/22 07:30 Temperature 98.5 F Pulse Rate [Left A pical] 67 Pulse Rate [Pulse Oximeter] 67 Respiratory Rate 16 Blood Pressure [Ri ght Arm] 125/53 L Pulse Oximetry 97 97 97 Oxygen Delivery Me thod Room Air Room Air DS: Data Data Completed and Pending Labs on day of discharge: Labs from last 24 hours 06/01/22 06:05 Sodium 131 L Potassium 3.7 Chloride 97 Carbon Dioxide 29 BUN 15 Creatinine 1.2 Estimated Creat Clear 43.57 Estimated GFR 61 Glucose 92 Calcium 8.7 Discharge Plan Discharge Disposition: Home, Self-Care Date of Admission: 05/30/22 11:57 Attending Provider on Discharge: Cathy Motta Primary Care Provider: Monico Modi Condition: Improved Anticipated Discharge Date/Time: 06/01/22 11:00 Discharge Medications: New potassium chloride 10 mEq Capsule, Extended Release 20 meq PO BIDWM Qty: 60 0RF torsemide 20 mg Tablet 20 mg PO DAILY@0800 Qty: 30 0RF Continued clonidine HCl 0.1 mg tablet 0.1 mg PO Q12H PRN Rx Instructions: for hypertensive urgency, 170/90 or greater carvedilol 12.5 mg tablet 6.25 mg PO BID clopidogrel 75 mg tablet 75 mg PO DAILY pramipexole 0.5 mg tablet 0.5 mg PO HS atorvastatin 80 mg tablet 80 mg PO HS nitroglycerin 0.4 mg tablet, sublingual 0.4 mg sublingual Q5M PRN (Reason: chest pain) omeprazole 40 mg capsule,delayed release(DR/EC) 40 mg PO DAILY quetiapine 25 mg tablet 25 mg PO HS calcium carb-magnesium carb 400-200 mg tablet 2 tab PO HS sodium chloride 1,000 mg tablet,soluble 500 mg PO BID Discontinued amiodarone 200 mg tablet 200 mg PO Q24H Discharge Orders: Discharge Order (Routine); Ordered 06/01/22 Ordered By: Cathy Motta Patient Education: Potassium Chloride (By mouth), Torsemide (By mouth), Heart Failure (DC) Additional Instructions: New meds: diuretic (torsemide at 20mg daily) and potassium supplement. It is important for you to have your weight, basic metabolic panel checked approximately 2 weeks. Activity Level: Activity as Tolerated Discharge Diet: Heart Healthy (2 gm sodium, low fat) Follow Up Appointments: Monico Modi MD [Primary Care Provider] - 06/15/22 10:30 am ([facility]. Needs BMP and weight checked at f/u appt. discharge weight is 68 KG. Consider f/u ECHO.) Forms: Health system Info Instructions
== END 2022-06-01 13:50 | disposition home or self-care (01) | DRG 291 ==
LOC: ED 18:36 → MEDSURG 19:32
PROVIDERS: Admitting Provider Family Medicine; Emergency Provider Family Medicine; PCP Family Medicine; Visit Provider Family Medicine
DX: I13.0 Hypertensive heart and chronic kidney disease with heart failure and stage 1 through stage 4 chronic kidney disease, or unspecified chronic kidney disease (principal); I50.21 Acute systolic (congestive) heart failure; J18.9 Pneumonia, unspecified organism; E87.1 Hypo-osmolality and hyponatremia; R18.8 Other ascites; N17.9 Acute kidney failure, unspecified; I50.811 Acute right heart failure; I70.229 Atherosclerosis of native arteries of extremities with rest pain, unspecified extremity; N40.0 Benign prostatic hyperplasia without lower urinary tract symptoms; T46.2X1A Poisoning by other antidysrhythmic drugs, accidental (unintentional), initial encounter; N18.9 Chronic kidney disease, unspecified; G62.9 Polyneuropathy, unspecified; R79.89 Other specified abnormal findings of blood chemistry; D64.9 Anemia, unspecified; I44.0 Atrioventricular block, first degree; I07.1 Rheumatic tricuspid insufficiency; I27.29 Other secondary pulmonary hypertension; I70.422 Atherosclerosis of autologous vein bypass graft(s) of the extremities with rest pain, left leg; F41.1 Generalized anxiety disorder; E87.6 Hypokalemia; T50.2X5A Adverse effect of carbonic-anhydrase inhibitors, benzothiadiazides and other diuretics, initial encounter; K21.9 Gastro-esophageal reflux disease without esophagitis; K40.90 Unilateral inguinal hernia, without obstruction or gangrene, not specified as recurrent; G25.81 Restless legs syndrome; Z95.1 Presence of aortocoronary bypass graft; Z95.5 Presence of coronary angioplasty implant and graft; Z95.0 Presence of cardiac pacemaker; I25.2 Old myocardial infarction; E78.2 Mixed hyperlipidemia
CPT/HCPCS: 36415; 71045; 71250; 76705; 80048; 80053; 80076; 82330; 82803; 83540; 83550; 83735; 83880; 84145; 84484; 85025; 85027; 85610; 85730; 86140; 87502; 87634; 87635; 93005; 93306; 94761; 97110; 97116; 97162; 97165; 97535; 99285; G0378; A9270; J1940

== ENCOUNTER 2023-09-14 07:52 | Day surgery (SDC) | payer MEDICARE, BC, SELFPAY ==
--- OUTSIDE RECORDS SUMMARY | 2023-09-14 07:55 | XMS_ITS | Referral Summary ---
Author Name Unknown Organization [facility] Address [address] [place] [address] Care Team Providers Care Crinkling Machine Operator Name Role Phone Elsewhere, Pcp Primary Care Provider Unavailabl e Source Comments Patient records contain information from all sites at [facility]. For routine questions regarding patient records, call [phone] during business hours, M-F 8:00 AM - 5:00 PM Central Time. Record requests for emergency care only can be directed to [phone] at any time.[facility] Allergies Active Allergy Reactions Criticality Noted Date Comments Amitriptyline Other (see comments) 01/30/2022 Unknown Ciprofloxacin Other (see comments) 01/30/2022 Unknown Citalopram Analogues Other (see comments) 01/30 Unknown Coq10 (Liposomal Ubiquinol) Other (see comments) 01/30/2022 Unknown Erythromycin Other (see comments) 01/30/2022 Unknown Hydrochlorothiazide Other (see comments) 2021 Unknown Lactose Other (see comments) 01/30/2022 Unknown Penicillins Other (see comments) 01/30/2022 Unknown Rosuvastatin Other (see comments) 01/30/2022 Unknown Sulindac Other (see comments) 01/30/2022 Unknown Ezetimibe Other (see comments) 01/30/2022 Unknown Medications Medication Sig Dispensed Refills Start Date End Date Status acetaminophen (TYLENOL) 325 mg tablet Take 650 mg by mouth every 4 (four) hours as needed. 0 Active amiodarone (PACERONE) 200 mg tablet Take 200 mg by mouth 2 (two) times a day. 0 Active aspirin [address] tablet Take 81 mg by mouth daily. 0 Active atorvastatin (LIPITOR) 80 mg tablet Take 80 mg by mouth daily. 0 Active cloNIDine (CATAPRES) 0.1 mg tablet Take 0.1 mg by mouth. Take 1 tab for blood pressure greater than 170/90. May repeat in 1 hour. 0 Active tamsulosin (FLOMAX) 0.4 mg 24 hr capsule Take 0.4 mg by mouth daily. 0 Active gabapentin (NEURONTIN) 300 mg capsule Take 600 mg by mouth 2 (two) times a day. 0 Active magnesium oxide (MAG-OX) 400 mg (241.3 mg magnesium) tablet Take by mouth Medrol Dose Pack scheduling ONLY. 0 Active polyethylene glycol (MIRALAX) 17 gram/dose oral powder Take 17 g by mouth 2 (two) times a day as needed. And scheduled daily on Monday 0 Active multivitamin-mineral s-lutein (CENTURY MATURE) tablet Take 1 tablet by mouth daily. 0 Active nitroglycerin (NITROSTAT) 0.[address] 0.4 mg under the tongue every 5 (five) minutes as needed. 0 Active omeprazole (PriLOSEC) [address] capsule Take 40 mg by mouth every morning before breakfast. 0 Active clopidogreL (PLAVIX) 75 mg tablet Take 75 mg by mouth daily. 0 Active pramipexole (MIRAPEX) 0.5 mg tablet Take 0.5 mg by mouth at bedtime. 0 Active simethicone (MYLICON,GAS-X) 125 mg capsule Take 125 mg by mouth every 6 (six) hours as needed. 0 Active timoloL (BETIMOL) 0.5 % ophthalmic solution Administer 1 drop into both eyes daily. 0 Active carvediloL (COREG) 12.5 mg tablet Take 6.25 mg by mouth 2 (two) times a day. 0 11/24/2021 Active Active Problems Problem Noted Date Diagnosed Date Hypotension Orthostatic 02/03/2022 Overview: Following hospital [...] hypotension Debility 02/03/2022 Last Assessment & Plan: He continues with PT/OT [...] Femoral popliteal bypass left leg 01/11/2022 at [facility] Clopidogrel lifelong, taking aspirin and statin Last Assessment & Plan: Reports occasional calf pain that is improved improved. Has follow-up with vascular on February 24 Coronary Artery Disease Without Angina Pectoris 01/30/2022 Overview: ? ? ANGIOPLASTY 09/21/2007 Stent to RCA Graft ? ? ANGIOPLASTY 05/05/2004 Stent X3 Prox through MId SVG to RCA ? ? ANGIOPLASTY 02/11 Stent Left Iliac, balloon angioplasty L popliteal ? ? CABG 08/24/1995 CAB X3, PHILLIP to LAD, SVG to First Laura, & RCA and endarectomy to RCA [place] (myocardial infarction) (HC) 09/2006 & 2003 Small Non Q-Wave 2006, ? ? NSTEMI (non-ST elevated myocardial infarction) Taking statin and aspirin. Continues on Plavix. Has p.r.n. nitroglycerin sublingual Taking amiodarone for what appears to be some sort of ventricular arrhythmia history Pacemaker Cardiac Status Post 01/30/2022 Overview: PACEMAKER PLACEMENT 02/18/2020 dual chamber PPM Last Assessment & Plan: Follows with [facility]. Carotid Artery Surgery Status Post 01/30/2022 Overview: ? ? right carotid endarterectomy 2018 Benign Prostatic Hyperplasia Hypertrophy With Ob struction 01/30/2022 Overview: Status post TURP Self caths 2 to 7 times daily Taking Flomax 0.4 mg daily Last Assessment & Plan: Of note has had orthostatic hypotension and could consider holding Flomax. Glaucoma 01/30/2022 Last Assessment & Plan: Timolol eyedrops. 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 Hyperlipidemia 01/30/2022 Overview: He is on atorvastatin in the [...] dose of pramipexole. Gastroesophageal Reflux Disease Without Esophagi tis 01/30/2022 Overview: Omeprazole 40 mg daily Last Assessment & Plan: Does report being gassy and uses simethicone p.r.n. Anemia 01/30/2022 Overview: Hgb 11.4 on 02/09/22 Last Assessment & Plan: Lab Results Component Value Date WBC 3.8 (L) 02/01/2022 HGB 10.8 (L) 02/01/2022 HCT 31.1 (L) 02/01/2022 MCV 93 02/01/2022 PLT 270 02/01/2022 Hgb stable. 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 Resolved Problems Problem Noted Date Diagnosed Date Resolved Date Chronic Kidney Disease Stage 3 Glomerular Filtration Rate 30 To 59 05/20/2011 02/17/2022 Immunizations Name Administration Dates Next Due Pneumococcal, Unspecified 05/05/2011 Social History Tobacco Use Types Packs/Day Years Used Date Smoking Tobacco: Former Nutrition Answer Date Recorded Nutrition: EVOO Fat Source Unknown 01/18 Nutrition: Servings of Fruits/Vegetables per Day Not on file 01/18/2022 Dental Answer Date Recorded Dental: Regular Dentist Unknown 01/19/20 Sex and Gender Information Value Date Recorded Sex Assigned at Not on file Gender Identity Not on file Sexual Orientation Not on file Last Filed Vital Signs [...] 01/19/2022 5:42 PM CDT Plan of Treatment Not on file Medical Devices Implanted Type Area Guitar Teacher Device Identifier Shelf Expiration Date Model / Serial / Lot Stent Icast Covered [id number] - [id number] [id number] Implanted:Qty: 1 on 10/04/2013 Respiratory Stent Other/Legacy - See Implant Description Atrium Description:Device Manufactu rer - Atrium [employer]. Body Location - Other. Vascular. Device Status Text - [id number]. Stent Protege Everflex 8 X 20 X 120 - Renae [id number] Implanted:Qty: 1 on 10/04/2013 Vascular Graft Other/Legacy - See Implant Description ev3 Description:Device Manufactu rer - EV3. Body Location - Other. Vascular. Device Status Text - [id number]. Care Teams Crinkling Machine Operator Relationship Specialty Start Date End Date Elsewhere, Pcp PCP - General Internal Medicine 02/23/22
--- OUTSIDE RECORDS SUMMARY | 2023-09-14 07:55 | XMS_ITS | Clinical Summary ---
Author Name Unknown Organization [facility] Address [address] [place] [id number] Care Team Providers Care Special Education Paraprofessional Name Role Phone Elsewhere, Pcp Primary Care Provider Unavailabl e Source Comments Patient records contain information from all sites at [facility]. For routine questions regarding patient records, call [phone] during business hours, M-F 8:00 AM - 5:00 PM Central Time. Record requests for emergency care only can be directed to [phone] at any time.[facility] Allergies Active Allergy Reactions Criticality Noted Date [...] Femoral popliteal bypass left leg 01/11/2022 at [facility] Clopidogrel lifelong, taking aspirin and statin [...] Laura, & RCA and endarectomy to RCA [place] (myocardial infarction) (HC) 09/2006 & 2003 Small Non Q-Wave 2006, ? ? NSTEMI (non-ST elevated myocardial infarction) Taking statin and aspirin. Continues on Plavix. Has p.r.n. nitroglycerin sublingual Taking amiodarone for what appears to be some sort of ventricular arrhythmia history Pacemaker Cardiac Status Post 01/30/2022 Overview: PACEMAKER PLACEMENT 02/18/2020 dual chamber PPM Last Assessment & Plan: Follows with [facility]. Carotid Artery Surgery Status Post 01/30/2022 Overview: [...] Maintenance Due Date Last Done Comments COVID-19 Vaccine (6 - 2022-2 4 season) 2023 04/27/2022, 12/10/2021, 07/14/2021, Additional history exists Office Visit for Blood Press ure Check / Re-check 02/17/2023 02/17/2022 Depression Screening (Annual PHQ-2) 06/05/2023 Fall Risk Screen (Annual) 06/05/2023 DTaP,Tdap,and Td Vaccines (2 - Td or Tdap) 07/07/2024 07/07/2014, 04/26/2006 Zoster Vaccines Completed 04/14/2018, 12/03, 04/24/2007 Pneumococcal vaccine (65+ years) Completed 05/23/2022, 07/07/2014, 05/05/2011, Additional history exists Influenza Vaccine Completed 04/28/2023, , 03/11/2021, Additional history exists Medical Devices Implanted Type Area Gas Transfer Operator Device Identifier Shelf Expiration Date Model / Serial / Lot Stent Icast Covered [id number] - [id number] [id number] Implanted:Qty: 1 on 10/04/2013 Respiratory Stent Other/Legacy - See Implant Description Atrium Description:Device Manufactu rer - [employer]. Body Location - Other. Vascular. Device Status Text - [id number]. Stent Protege Everflex 8 X 20 X 120 - Renae [id number] Implanted:Qty: 1 on 10/04/2013 Vascular Graft Other/Legacy - See Implant Description ev3 Description:Device Manufactu rer - EV3. Body Location - Other. Vascular. Device Status Text - [id number]. Care Teams Special Education Paraprofessional Relationship Specialty Start Date End Date Elsewhere, Pcp PCP - General Internal Medicine 02/23/22
--- OUTSIDE RECORDS SUMMARY | 2023-09-14 07:55 | XMS_ITS | Data Portability ---
Author Name Unknown Address [address] [place] [address] Phone [phone] Organization [facility] Address [address] [place] [address] Care Team Providers Care Generator Switchboard Operator Name Role Phone CONNOR MIKE Primary Care Provider Assessment No assessment recorded. Plan of Treatment Reminders Order Date Submit Date Provider Last Modified By Organization Details Last Modified Time Details Appointments None record ed. Lab None record ed. Referral None record ed. Procedures None record ed. Surgeries None record ed. Imaging None record ed. Medication Orders None record ed. Patient TargetsNo targets recorded. Patient Instructions Encounter Date Encounter Id Patient Instructions Last Modified By Organization Details Last Modified Time 12/20/2021 [id number] Needs to follow up with LEVY [email or web address] Not available 12/20/2021 15:03:05 Reason for Referral None Reported. Procedures Surgical History Date Name Laterality Status Provider Name and Address Organization Details Recorded Time Lopez Catheter Removal completed Marielena gagnon [facility] 12/20/2021 15:01:26 Imaging Results None recorded. Procedure Notes None recorded. Medical Equipment None Reported. Medications Name Sig Start Date Stop Date Status Note LastModified by Organization Details LastModified Time coloplast ref 614 fr14 male PERFORM SELF-RITA TERIZATION UP TO 5 TIMES A DAY NEEDED FOR URINARY RETENTION active Not Available Not Available No t Available ketoconazole 2 % shampoo WASH TO AFFECTED AREA ON EAR AND CHEST 2-3 TIMES WEEKLY WEEKLY IN THE SHOWER LATHER AND LET SIT FOR SEVERAL MINUTES BEFORE RINSING active Not Available Not Available No t Available triamcinolone acetonide 0.1 % topical cream WHEN ITCHY APPLY TO AFFECTED AREA ON EARS AND CHEST 1-2X DAILY FOR 2 WEEKS AT A TIME REPEAT NEEDED FOR FLARES active Not Available Not Available No t Available nitrofurantoi n monohydrate/m acrocrystals 100 mg capsule TAKE ONE CAPSULE BY MOUTH TWICE DAILY FOR 5 DAYS active Not Available Not Available No t Available Vitals None Recorded Social History None recorded. Functional Status None recorded. Mental Status None recorded. Family History Nothing Reported. Medical History No medical history recorded. Past Encounters Encounter ID Performer Location Encounter Start Date Encounter Closed Date Diagnosis/Indication Diagnosis SNOMED-CT Code [id number] Sulaiman Romano MD [facility] [address] [facility] [place] [id number] 12/20/2021 14:24:43 12/23/2021 03:53:18 Retention of urine [id number] Health Concerns Section Related Observation LastModified by Organization Detai ls LastModified Time None Recorded Concern Status LastModified by Organization Details LastModified Time None Recorded Advance Directives Directive None Recorded Payers Encounter Date Sequence Insurance Name Policy Number Policy Coelho Covered Member ID Coelho Member ID Guarantor Name 12/20/2021 1 [place] [employer] Anish Velazquez [id number] Anish Velazquez 12/20/2021 2 [place] [id number] Anish Velazquez [id number] Anish Velazquez
--- OUTSIDE RECORDS SUMMARY | 2023-09-14 07:55 | XMS_ITS | Clinical Summary ---
Author Name Unknown Organization [facility] Address [place], [place] [address] Care Team Providers Care Glass Technologist Name Role Phone Yong Siddiqi MD Unavailable [phone] Dillan Eubanks MD Unavailable Rowan vailable Monico Modi MD Primary Care Provider Allergies Active Allergy Reactions Criticality Noted Date Comments Amlodipine Other - Describe In Comment Field 09/04/2023 Low pressures on just 2.5mg. Citalopram Diarrhea 07/23/2013 Ciprofloxacin Rash 02/16/2015 Severe Hives Coenzyme Q10 Myalgia 11/27/2015 Rosuvastatin Rash 06/10/2012 Amitriptyline Confusion,Insomnia 02/17/2012 Erythromycin Edema,Hives High 11/01/2006 Hydrochlorothiazide Myalgia 09/14/2015 cramps from therapy. Lactose Stomach Upset 06/11/2012 Lactose intolerant Escitalopram Mental Status Change 11/12/2015 Feelings of depression. Penicillins Hives High 11/01/2006 ##No similarities in side chains, very low to no risk of cross-sensitivity to ANCEF. ANW Antimicrobial Stewardship Team 03/2019 Sulindac Sedation 12/02/2010 Ezetimibe Nausea And Vomiting 09/09/2011 Medications Medication Sig Dispensed Refills Start Date End Date Status aspirin 81 mg tablet Take 81 mg by mouth once daily with a meal. Active multivitamins-min erals-lutein (MULTIVITAMIN 50 PLUS) tab tablet Take 1 tablet by mouth once daily in the evening. Active polyethylene glycoL (MIRALAX) 17 gram/dose powderIndications :Constipation, acute Mix 1 scoop (17 g) in liquid then take by mouth 2 times daily if needed for Constipation. 1 jar 12 12/16/19 21 Active nitroglycerin (NITROSTAT) 0.4 mg sublingual tabletIndications :Chest pain, unspecified DISSOLVE ONE TABLET UNDER TONGUE EVERY 5 MINUTES NEEDED FOR CHEST PAIN FOR UP TO 3 TIMES, IF NO RELIEF, CALL [phone] 25 Tablet 1 10/24/19 22 Active omeprazole (PRILOSEC) 40 mg Delayed-Release capsuleIndication s:Gastroesophagea l reflux disease, unspecified whether esophagitis present Take 1 Capsule (40 mg) by mouth once daily before a meal. 90 Capsule 3 04/28/20 23 Active Simethicone 125 mg capsuleIndication s:Bloating Take 1 Capsule (125 mg) by mouth 4 times daily if needed for Flatulence. Max dose: 500 mg per 24 hrs 100 Capsule 6 04/28/20 23 Active pramipexole (MIRAPEX) 0.5 mg tabletIndications :RLS (restless legs syndrome) Take 1 Tablet (0.5 mg) by mouth at bedtime. 90 Tablet 3 04/28/20 23 Active potassium chloride (Klor-Con 10) 10 mEq extended-release tabletIndications :HFrEF (heart failure with reduced ejection fraction) (HC) Take 1 Tablet (10 mEq) by mouth two times daily with meals. 180 Tablet 3 04/28/20 23 Active atorvastatin (LIPITOR) 80 mg tabletIndications :Hyperlipidemia, unspecified hyperlipidemia type Take 1 Tablet (80 mg) by mouth at bedtime. 90 Tablet 3 04/28/20 23 Active magnesium oxide (MAG-OX 400) 400 mg tabletIndications :Low magnesium level TAKE ONE TABLET (400 MG) BY MOUTH ONCE DAILY IN THE EVENING 90 Tablet 3 04/28/20 23 Active cloNIDine HCL (CATAPRES) 0.1 mg tabletIndications :HTN (hypertension) TAKE 1 TABLET BY MOUTH NEEDED FOR BLOOD PRESSURE GREATER THAN 170/90. MAY REPEAT IN 1 HOUR DIRECTED. MAXIMUM DOSE TWO TABLETS IN 24 HOURS. 30 Tablet 04/28/20 23 Active melatonin 3 mg tabletIndications :Insomnia due to medical condition Take 1 Tablet (3 mg) by mouth at bedtime if needed for Sleep. 90 Tablet 2 06/07/19 24 Active Additional Information Patient taking differently:3 mg OralBEDTIME, Reported on 08/24/2023 torsemide (DEMADEX) 20 mg tabletIndications :HFrEF (heart failure with reduced ejection fraction) (HC) Take 2 Tablets (40 mg) by mouth once daily. 180 Tablet 1 06/29/19 24 Active carvediloL (Coreg) 25 mg tabletIndications :Essential hypertension,NSVT (nonsustained ventricular tachycardia) (HC) Take 1 Tablet (25 mg) by mouth two times daily. 180 Tablet 3 08/17/19 24 Active clopidogreL (PLAVIX) 75 mg tabletIndications :NSTEMI (non-ST elevated myocardial infarction) (HC),History of coronary angioplasty with insertion of stent Take 1 Tablet (75 mg) by mouth every morning. HOLD for one week, resume on 09/01/2023 08/25/19 24 Active losartan (COZAAR) 25 mg tabletIndications :Labile hypertension Take 0.5 Tablets (12.5 mg) by mouth once daily. 15 Tablet 11 09/13/19 24 Active clopidogreL (PLAVIX) 75 mg tabletIndications :NSTEMI (non-ST elevated myocardial infarction) (HC),History of coronary angioplasty with insertion of stent TAKE ONE TABLET BY MOUTH EVERY MORNING 90 Tablet 3 10/11/19 23 024 Discontinued carvediloL (COREG) 12.5 mg tabletIndications :Essential hypertension,NSVT (nonsustained ventricular tachycardia) (HC) Take 1 Tablet (12.5 mg) by mouth two times daily with meals. 180 Tablet 3 12/31/19 23 024 Discontinued(*M edication adjustment) diclofenac topical (VOLTAREN) 1 % gelIndications:Ba ck pain, unspecified back location, unspecified back pain laterality, unspecified chronicity Apply 2 g topically to affected area(s) 4 times daily if needed. 01/14/20 024 Discontinued(Ot her - add note to specify (E-cancel not sent)) Catheter 16 Fr miscIndications:U rinary retention Perform self- catheretization up to 7 times a day as needed for urinary retention 400 Each 10 04/28/20 23 024 Discontinued(Ot her - add note to specify (E-cancel not sent)) torsemide 40 mg tabIndications:HF rEF (heart failure with reduced ejection fraction) (HC) Take 40 mg by mouth once daily. Take one tablet (40 mg) by mouth in the morning. 90 Tablet 3 06/15/19 24 024 Discontinued(Ot her - add note to specify (E-cancel not sent)) amLODIPine (NORVASC) 2.5 mg tabletIndications :Labile hypertension Take 1 Tablet (2.5 mg) by mouth once daily. 30 Tablet 12 08/31/19 24 024 Discontinued(*A llergic/Adverse Rxn/Side Effects) Active Problems Patient Care Coordination No te Formatting of this note migh t be different from the original. HF/Structural/Prevention Research Eligibility Review Date: 06/26/19 Upcoming Visit Location: [facility] Age: 79 y.o. Medicare/Medicaid EF: 50 Valve/Imaging: mild AR, mild TR, trace MR Comments: HF: DNQ Structural: No significant valve disease Prevention: DNQ Problem Noted Date Diagnosed Date Left ventricular dysfunction 08/31/2023 Frequent PVCs 05/23/2022 GERD (gastroesophageal reflux disease) 2 Status post placement of cardiac pacemaker 02/24 AV block, 2nd degree 02/19/2020 Overview: status post PPM 02/18/2020 Peripheral artery disease (HC) Lifelong Plavix. 06/30/2019 Overview: s/p Left femoral endarterectomy, R SFA stent 11-23-11, s/p Right femoral endarterectomy, right external iliac stent Left SFA stent 05-24-2012 NSTEMI (non-ST elevated myocardial infarction) 0 06/30/2019 Prediabetes 11/27/2017 Labile blood pressure 03/09/2017 BPH (benign prostatic hypertrophy) with urinary retention 09/14/2015 Pulmonary nodule 06/13/2012 Overview: Found on CTA June 2012- consider follow up CT chest no contrast in 6 months. ACP (advance care planning) 05/27/2012 Overview: Patient has identified Health Care Agent(s): Yes Add Health Care Agents: Yes Health Care Agent(s): Primary Health Care Agent: Bailey Relationship: daughter Secondary Health Care Agent: Relationship: Phone: Conservator: Relationship: Phone: Guardian: Relationship: Phone: Patient has Advance Care Plan Documents (Health Care Directive, POLST): Yes Advance Care Plan Documents: Health Care Directive Patient has identified Specific Treatment Preferences: Yes Specific Treatment Preferences: a.) Code Status: CPR/Attempt Resuscitation Neuralgia 12/13/2011 CAD (coronary artery disease) 10/04/2011 Overview: - Hx of CABG 1996: REYNA - mLAD, SVG - OM1, SVG - RPDA - prior stent work - 06/12/12 Angio: Successful 2mm x 12mm Balloon and 2.5mm x 12mm Balloon to Aorta graft to 1st Marginal, post stenosis 20%. Unable to stent due to the 180 degree bend in the vein graft prior to the lesion. * REYNA - mLAD patent; SVG - RPDA occluded - 09/28/16 MPI: * There is a small to medium sized area of mild ischemia in the mid and apical lateral wall. This appears to be new compared to the 04/22/2010 study. * There is a medium sized inferior infarction with mild urbano-infarction ischemia. This is probably not significantly changed from the 04/22/2010 study. - angiogram 12/01/16: Lactose intolerance 09/16/2011 Mixed hyperlipidemia 08/11/2011 Carotid artery stenosis 05/31/2011 CKD (chronic kidney disease) stage 3, GFR 30-59 ml/min 05/20/2011 Anxiety state, unspecified 06/10/2010 RLS (restless legs syndrome) 10/28/2008 Vesicoureteral reflux, unspe cified or without reflux nephropathy Overview: He voids every 2-4 hours during the day and??caths at??night. He self-caths??2-4x/day and 3x/night. Stenosis of right carotid ar simran without cerebral infarction Critical limb ischemia of left lower extremity Anemia Resolved Problems Problem Noted Date Diagnosed Date Resolved Date Other ascites 06/14/2022 04/28/2023 Pleural effusion 06/14/2022 04/28/2023 Hypertension 02/25/2020 08/31/2023 Cramps, muscle, general 11/28/201808/031 GERD (gastroesophageal reflux disease) 06/11/2012 05/23/2022 Chest pain, unspecified 06/11/2012 06/0 11/2016 Hemoptysis 05/27/2012 06/25/2012 Overview: CT chest with contrast on 05/30 ~4 cm are of infiltrate/inflammation in the LLL. Small cavity component may be present within this infiltrate. Rest of lungs are clear. No PE Testalgia 05/26/2012 03/14/2014 Biceps rupture, proximal 05/22/2012 Overview: On both sides, left greater than right. 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) use of anticoagulants 09/15/2009 03/08/2011 Overview: INR Goal Range: 1.5 - 20 Diarrhea 02/17/2009 03/08/2011 Overview: -with Pletal PVD (peripheral vascular disease) 11/26/2008 03/08/2011 PAD (Peripheral Artery Disea se) with claudication--s/p L iliac stent 98;CITY COMPTROLLER L popliteal 02-17-09 10/28/2008 12/13/2011 Overview: S/p Left common femoral endarterectomy and R SFA stent (11/23/2011) Other dyspnea and respiratory abnormality 03/17/2008 03/08/2011 Dizziness and giddiness 01/22/200808/04 Shortness of breath 01/22/2008 03/08/20 11 Esophageal reflux 07/10/2007 07/26/2012 Overview: EGD 06/2009 benign gastric polyps EGD 06/2013 benign gastric polyps Cor Athrscl-Uns Vessel 10/03 Overview: -prior NJ's in 1995, 2000 -CABG 1995 -Multiple PCI with 8 stents, last 03/12 -Myoview in 08/11 with fixed inferior defect, minimal urbano-infarct ischemia, LVEF 60% Pure hypercholesterolemia Unspecified Essential Hypertension 12/13/2011 Other and Unspecified Hyperlipidemia 02/17/2012 Encounters Date Type Department Care Team Description 09/08/2023 1:40 PM CDT [facility] [address] [place] [address] Monico Modi MD Preoperative Exam (DOS: 09/14/2023, hernia repair, Dr. Lopez, [facility]) 09/08/2023 Travel 09/06/2023 4:15 PM CDT [facility] [address] [place] [address] Savanah Lopez MD Consult (Left inguinal hernia-getting worse) 09/06/2023 Travel 09/04/2023 Travel 08/31/2023 4:35 PM CDT [facility] [address] [place] [address] Monico Modi MD Hospital F/U (ANW, 08/24/2023 - 08/25/2023, pacemaker replaced) 08/31/2023 Travel 08/24/2023 1:14 PM CDT Anesthesia Event [facility] [address] [place] [address] Huey Galaviz MD Anderson, Rebecca Faye, MD 08/24/2023 10:52 AM CDT - 08/25/2023 11:22 AM CDT Hospital Encounter [facility] [address] [place] [address] Shant Goodwin MD Milshteyn, Mark L, MD Coronary artery disease involving [place] coronary artery of [place] heart without angina pectoris (Primary Dx); NSTEMI (non-ST elevated myocardial infarction) (HC); History of coronary angioplasty with insertion of stent; Status post placement of cardiac pacemaker; HFrEF (heart failure with reduced ejection fraction) (HC) Discharge Disposition: Home Self Care 08/24/2023 Travel 08/17/2023 1:00 PM CDT Office Visit [facility] [address] [place] [phone] Chaz Bell MD CV Electrophysiology Est (per Dr. Bell ok'd to take telehrt spot to discuss BIV PPM with echo prior//PCP: Monico Modi MD) 08/17/2023 Travel 08/07/2023 9:00 AM WORD PROCESSING OPERATOR Ancillary Procedure [facility] [address] [place] [address] 08/07/2023 Travel 07/18/2023 Travel 06/19/2023 Telephone [facility] [address] [place] [address] Chaz Bell MD Follow Up 06/15/2023 3:30 PM WORD PROCESSING OPERATOR Office Visit [facility] [address] [place] [phone] Bruce Mehta MD CV General Cardiology Est (Fu//PCP: Monico Modi MD/) 06/15/2023 Travel 06/15/2023 [facility]ill [facility] [address] [place] [address] Monico Modi MD Refill Request (Potassium Chloride, Atorvastatin, Pramipexole) from Last 3 Months Immunizations Name Administration Dates Next Due AMB Influenza, IIV3 (Age >=3 years)(Flu Clinic Only) 02/28/2013 COVID-19 vaccine (Moderna 100mcg/0.5mL) MD LEVYV 07/30/2020 COVID-19 vaccine ([employer]-Bio NTech 30mcg/0.3mL) 12YO+ BIVALENT PF, MDV 04/27/2022 COVID-19 vaccine ([employer] NTech 30mcg/0.3mL) 12YO+ REYNA-SUCROSE PF, MDV 12/10/2021,07/14/2021 Influenza A (H1N1), Inactivated 06/09/2009 Influenza A (H1N1), Inactiva garcia (Age >=3 Years) 06/09/2009 Influenza, High-dose Inactivated 03/31/2016,02/03 Influenza, IIV3 (Age 6-35 mos) 03/08/2011,2009 Influenza, IIV3 (Age >=3 years) 02/29/20 13,02/17/2012,03/08/2011,02/11,02/10/2009,04/01/2008,04/19/2007 ,04/04/2006,04/25/2005,04/05/2004,03/06 Influenza, IIV4 02/19/2014 Influenza, Inactivated AIIV4 (Age 65+ Years) Preserv Free 04/28/2023,03/10/2022,03/11/2021,02/24 Influenza, Inactivated IIV3 (Age 65+ Years) Preserv Free 05/06/2019,02/06/2018,03/09/2017 Pneumococcal Conj 20-valent (Prevnar 20) 05/23/2022 Pneumococcal Poly,23-Valent (Pneumovax) 04/04/2006,10/02/1995 Pneumococcal conj 13-Valent (Prevnar 13) 07/07/2014 Pneumococcal, Unspecified 05/05/2011 RSV, Recombinant ADJ Reconst ituted (Arexvy 120MCG/0.5mL) 05/24/2023 Td (Age >=7 Years) 04/26/2006,10/02/1995 Td, Preservative Free (age >= 7 Years) 6 Tdap 07/07/2014 Zoster (Shingrix-RZV, recombinant) 04/14/2018, Zoster (Zostavax-ZVL, live) 04/24/2007 Family History Medical History Relation Name Comments Heart Disease Brother 1 #2 ICD Good Health Brother 2 #1 Good Health Brother 3 #3 Other Sister ?TB of cheek at age 5 Anesthesia Problem No Family History Relation Name Status Comments Brother 1 #2 Brother 2 #1 Brother 3 #3 Father (Age 73) CAD, cirrh osis, tobacco/Etoh Mother (Age 83) CAD Sister Social History Tobacco Use Types Packs/Day Years Used Date Smoking Tobacco: Former Cigarettes 2 30 0 06/05/1958 - 06/05/1988 Smokeless Tobacco: Never Tobacco Cessation:Counseling Given: No Alcohol Use Standard Drinks/Week Comments No 0 (1 standard drink = 0.6 oz pur e alcohol) PHQ-2 Answer Date Recorded PHQ-2 TOTAL SCORE 0 04/28/2023 Social Connections Answer Date Recorded Frequency of Communication with Friends and Fami ly 0 04/28/2023 Financial Resource Strain Answer Date R ecorded Difficulty of Paying Living Expenses 3 04/28/2023 Difficulty of Paying Living Expenses Not on file 04/28/2023 Food Insecurity Answer Date Recorded Worried About Running Out of Food in the Last Ye ar 1 04/28/2023 Transportation Needs Answer Date Record ed Lack of Transportation (Medical) 1 04/28/2023 Housing Stability Answer Date Recorded Unable to Pay for Housing in the Last Year 1 04/28/2023 Sex and Gender Information Value Date Recorded Sex Assigned at Not on file Gender Identity Not on file Sexual Orientation Not on file Obstetrics History Last Filed Vital Signs Vital Sign Reading Time Taken Comments Blood Pressure 176/87 09/08/2023 1:33 PM CDT Pulse 81 09/08/2023 1:33 PM CDT Temperature 36.6 ??C (97.9 ??F) 08/25/2023 7:40 AM CD T Respiratory Rate 18 08/25/2023 7:40 AM CDT Oxygen Saturation 100% 09/08/2023 1:33 PM CDT Inhaled Oxygen Concentration - - Weight 70 kg (154 lb 6.4 oz) 09/08/2023 1:33 PM CDT Height 167 cm (5' 5.75) 09/08/2023 1:33 PM CDT Body Mass Index 25.11 09/08/2023 1:33 PM CDT Plan of Treatment Upcoming Encounters Date Type Department Care Team (Late st Contact Info) Description 09/14/2023 8:00 AM CDT [facility] [address] [place] [phone] Savanah Lopez MD [address] [place] [address] 11/20/2023 Cardiac Device Check [facility] [phone] 12/12/2023 2:30 PM CDT Cardiac Device Check [facility] [address] [place] [phone] Health Maintenance Due Date Last Done Comments COVID-19 vaccine series ( season) 2023 04/27/2022, 12/10/2021, 07/14/2021, Additional history exists Influenza for age 65+ 02/04/2024 04/28/2023 , 03/10/2022, 03/11/2021, Additional history exists Depression screening for age 12+ 04/28/2024 04/28/2023, 04/28/2023, 02/27/2023, Additional history exists Medicare Wellness for age 65+ 04/28/2024, 08/24/2021, 08/19/2020, Additional history exists Tetanus booster 07/07/2024 07/07/2014, 04/06, 04/26/2006, Additional history exists BMI (ht and wt on same day) for age 18+ 09/07/2024 09/08/2023, 08/17/2023, 06/15/2023, Additional history exists Tdap Completed 07/07/2014 Zoster (shingles) series for age 50+ Completed 04/14/2018, 12/18/2017, 04/24/2007 Pneumococcal series for age 65+ Completed 05/23/2022, 07/07/2014, 05/05/2011, Additional history exists Goals Goal Patient Goal Type Associated Problems Recent Progress Patient-Stated? Author BLOOD PRESSURE - MAINTAINS BP less than 140/90 Blood Pressure Alpesh Dowling MD Medical Devices Implanted Type Area Sharemilker Device Identifier Shelf Expiration Date Model / Serial / Lot Patch Vasc 0.8x8cm Biological Peripatch - [id number] Implanted:Qty: 1 on 11/23/2011 by Annemarie King MD at [facility] Left: Femoral Artery [employer] 03/24/2014 0.8P8# / / [id number] Urbano-Guard [id number] - [id number] Implanted:Qty: 1 on 05/24/2012 by Annemarie King MD at [facility] Right: Femoral Artery [employer] 11/25/2015 [id number]# / / [id number] Patch Vasc 0.8x8cm Xenosure Biological Pericardial - [id number] Implanted:Qty: 1 on 08/12/2016 by Zen Morales MD at [facility] Right: Carotid Artery [employer] 03/02/2022 0.8P8# / / [id number] Procedures Procedure Name Priority Date/Time Associated Diagnosis Comments PACER JESUS DUAL CHAMBER WO REPROG Routine 08/25/2023 9:04 AM CDT Fitting or adjustment of cardiac pacemaker EKG 12 LEAD Routine 08/25/2023 8:33 AM CDT SCAN-CARDIAC STRIP 08/25/2023 7: 39 AM CDT XR CHEST 2 VIEWS PA AND LATERAL Routine 08/25/2023 7:22 AM CDT EP PPM Routine 08/24/2023 1:44 PM CDT EKG 12 LEAD Preop 08/24/2023 11:38 AM CDT BASIC METABOLIC PANEL Preop 08/24/2023 11:38 AM CDT CBC W PLT NO DIFF Preop 08/24/2023 11: 38 AM CDT EKG 12 LEAD Today 08/17/2023 12:38 PM CDT AV block, 2nd degree ECHO TTE LIMITED WO CONTRAST Routine 08/07/2023 9:09 AM WORD PROCESSING OPERATOR PVC (premature ventricular contraction) EXTENDED HOLTER Routine 08/02/2023 12:00 AM WORD PROCESSING OPERATOR PVC (premature ventricular contraction) from Last 3 Months Results * PACER JESUS??DUAL CHAMBER WO REPROG [[id number]] (08/25/2023 9:04 AM CDT) Narrative Chaz Bell MD - 08/25/2023 9:04 AM CDT Costa Perla RN ? 08/25/2023 ??9:14 AM PACEMAKER EVALUATION REPORT August 25, 2023 Indication for Pacemaker: High Grade AV Block, upgrade to biv ppm Primary MD: Monico Modi MD Primary Supervisor Pig Machine: ?? Implanting MD: Chaz Bell MD DEVICE DATA [employer] Medtronic: Model [id number] Percepta Quad BLUE LINE OPERATOR-p MRI ?? Implant Date 08/24/2023 LEAD DATA Atrial Lead: [employer] Medtronic: Model [id number] ??59 cm Implant Date 02/18/2020 RV Lead: [employer] Medtronic: Model 5076 58 cm Implant Date 02/18/2020 LV Lead: [employer] Medtronic: Model [id number] ??78 cm Implant Date 08/24/23 Advisory: none Location of evaluation: [facility] Reason for evaluation: Routine, first day post upgade to biv MEASUREMENTS Atrial Sensing - P wave: 1.4 mV Atrial Capture: 0.75 V @ 0.4 ms Atrial Lead Impedance: 684 ohms Ventricular Sensing - R wave: 13.5 mV RV Capture: 0.5 V @ 0.4 ms LV Capture: 0.75 V @ 0.4 ms Ventricular Lead Impedance: Right - 456 ohms ??Left - 608 ohms Underlying rhythm: Sinus Rhythm at 72 bpm with 2:1 AV block, ventricular rate at 31 bpm DIAGNOSTIC DATA - since 08/24/23 Atrial paced: 18.3%, Total BLUE LINE OPERATOR paced: 96.5% (BiV: 99.9%, LV: 0.0%) + 0.4% from VSR ??Effective: 96.5% Atrial episodes: none Associated symptoms: n/a Ventricular episodes (detects >150 bpm): None Associated symptoms: n/a Last EF: 34% per Echo on 08/07/23 Histogram: appropriate for patient's lifestyle Magnet rate: 85 bpm ??Battery voltage: 3.17 V ??Estimated battery longevity: initializing FINAL PARAMETERS Mode: DDDR ??Lower rate: 60 bpm ??Upper rate: 130 bpm ??AV Delay: 150/110 ms ??Mode Switch: 171 bpm ??Rate Response: low 3/3 Atrial - Amplitude: adaptive 2.5 V ??Pulse width: 0.4 ms ?? Sensitivity: 0.3 mV ??Refractory: auto 250 ms ??Polarity: Bipolar Right Ventricular - Amplitude: adaptive 2.5 V ??Pulse width: 0.4 ms ??Sensitivity: 2.0 mV ?? Polarity: Bipolar Left Ventricular - Amplitude: adaptive 2.5 V ??Pulse width: 0.4 ms ??Vector: LV3 - LV 4 ??(fyi LV1 has extracardiac stim at implant) Changes made: Device temporarily reprogrammed, iterative adjustments made during interrogation/testing. No permanent changes made. Conclusion: Normal pacemaker function. ??Pt ??given instructions on indications for implant, incisional cares, S&S of infection, activity restrictions, ROCIO, and follow up cares. ??Pt is to see their primary Dr. On 08/31/23 and will follow up with pacemaker clinic in [place] on 12/12/2023, appointment given. ??Pt verbalized understanding of the instructions that were given and written information was provided. ??Pt's monitor was paired to the new device. Follow up: 3 months in [place] on 12/12/23. Routine follow up: 4 month carelink with [facility]. Signed By: ??Costa Perla RN, ??CCDS ?? 08/25/2023 David Giron MD CARDIAC SERVICES ORD * EKG 12 LEAD (08/25/2023 8:33 AM CDT) Only the most recent of3 resultswithin the time period is included. Interpretation Atrial-sensed ventricular-pa sony rhythm with Premature atrial complexes with Aberrant conduction Abnormal ECG When compared with ECG of 24-AUG-2023 11:38, (Unconfirmed) Premature ventricular complexes are no longer Present Aberrant conduction is now Present Vent. rate has decreased BY ??13 BPM BEYOND NOW Ventricular Rate 68 BPM BEYOND NOW Atrial Rate 68 BPM BEYOND NOW P-R Interval 122 ms BEYOND NOW QRS Duration 136 ms BEYOND NOW QT 492 ms BEYOND NOW QTc 523 ms BEYOND NOW P [place] 33 degrees BEYOND NOW R [place] 104 degrees BEYOND NOW T [place] -62 degrees BEYOND NOW 08/25/2023 8:33 AM CDT 08/25/2023 4:10 PM CDT Truong Valenzuela BAG MACHINE ADJUSTER EKG ORD BEYOND NOW [place], [place] * SCAN-CARDIAC STRIP (08/25/2023 7:39 AM CDT) Scanner OTHER * XR CHEST 2 VIEWS PA AND LATERAL (08/25/2023 7:22 AM CDT) Anatomical Region Laterality Modality CHEST, THORAX, Lung, HEART Digit al Radiography 08/25/2023 7:26 AM CDT Impressions 08/25/2023 7:26 AM CDT Pacer/ICD normally located. Lungs and pleural spaces appear normal. No pneumothorax. Dictated by Gordy Prescott MD @ Aug 25 2023 ??7:26AM (Electronically Signed) [email or web address] Narrative 08/25/2023 7:26 AM CDT For Patients: ??As a result of the Cures Act, medical imaging exams and procedure reports are released immediately into your electronic medical record. ??You may view this report before your referring provider. ??If you have questions, please contact your health care provider. INDICATION: Pacer placement COMPARISON: Two views of the chest were obtained August 25, 2023 TECHNIQUE: March 21, 2022 FINDINGS: TUBES AND LINES: Left-sided pacer/ICD noted with leads ending in the right atrium, right ventricle and coronary venous sinus system posteriorly. HEART AND MEDIASTINUM: The heart size is normal. The mediastinal contour appears normal for patient age. LUNGS AND PLEURAL SPACES: The lungs appear normal.The pleural spaces are unremarkable. OSSEOUS STRUCTURES: Age-appropriate appearance. No acute focal finding. Procedure Note Gordy Prescott MD - 08/25/2023 For Patients: As a result of the 21st Century Cures Act, medical imagingexams and procedure reports are released immediately into your electronicmedical record. You may view this report before your referring provider.If you have questions, please contact your health care provider. INDICATION: Pacer placement COMPARISON: Two views of the chest were obtained August 25, 2023 TECHNIQUE: March 21, 2022 FINDINGS: TUBES AND LINES: Left-sided pacer/ICD noted with leads ending in the rightatrium, right ventricle and coronary venous sinus system posteriorly. HEART AND MEDIASTINUM: The heart size is normal. The mediastinal contourappears normal for patient age. LUNGS AND PLEURAL SPACES: The lungs appear normal.The pleural spaces areunremarkable. OSSEOUS STRUCTURES: Age-appropriate appearance. No acute focal finding. IMPRESSION: Pacer/ICD normally located. Lungs and pleural spaces appear normal. Nopneumothorax. Dictated by Gordy Prescott MD @ Aug 25 2023 7:26AM (Electronically Signed) [email or web address] Chaz Bell MD GENERAL IMAGIN G * EP PPM (08/24/2023 1:44 PM CDT) Anatomical Region Laterality Modality X-Ray Angiograph y, X-Ray Angiography 08/24/2023 1:44 PM CDT Narrative Procedure Note Shant Goodwin MD - 08/24/2023 3:06 PM CDT DATE OF SERVICE: 08/24/2023 SURGEON: Shant Goodwin MD PROCEDURE: Upgrading of the dual-chamber permanent pacemaker to a biventricularpacemaker. PREOPERATIVE DIAGNOSIS: Left ventricular systolic dysfunction with chronic right ventricularpacing. POSTOPERATIVE DIAGNOSIS: Left ventricular systolic dysfunction with chronic right ventricularpacing. ESTIMATED BLOOD LOSS: Minimal. SPECIMEN SENT: Not applicable. BRIEF HISTORY OF PRESENT ILLNESS: Mr. Anish Coughlin is a delightful 83-year-old male with AV node dysfunction,status post dual-chamber permanent pacemaker placed in 2019.Subsequently, he has developed progressively worsening left ventricularsystolic function with an ejection fraction now of 34%. DESCRIPTION OF PROCEDURE: After informed consent was obtained, the patient was brought to theelectrophysiology laboratory in a fasting nonsedated state. He wasprepped and draped in a sterile fashion. Anesthesia was provided by theAnesthesia division. After lidocaine infiltration, an incision was madeoverlying the previous incision in the left infraclavicular region. Acombination of electrocautery and blunt dissection was used to free thedevice and the leads. The leads were tested and found to be workingappropriately. A micropuncture needle was used to cannulate theextrathoracic axillary vein x1. Over this wire, a 9-Urdu SafeSheath wasplaced through which a Wholey wire was placed and a Medtronic multipurposecoronary sinus sheath. However, the takeoff of the coronary sinus wasvery posterior in location with tortuosity from the right atrium.Finally, a HIS sheath was used to successfully cannulate the coronarysinus. With telescoping technique and multiple sheaths, we gained accessto the main body of coronary sinus and utilized a balloon occlusion toperform a coronary sinus venogram. This showed an excellent mid coronarysinus branch coursing in a posterior lateral direction. We entered thisbranch with a quadripolar electrophysiology lead and a [employer] Placest[employer] Cougarwire. In multiple bifurcations in the distal portion of this subbranch,we found phrenic nerve stimulation. Therefore, utilizing an activefixation quadripolar lead, we secured the lead in a position that showedexcellent capture thresholds with absence of phrenic or diaphragmaticstimulation. The SafeSheath was removed and the coronary sinus sheath wascut. The lead was sutured to the prepectoral fascia. The pocket wasirrigated with copious antibiotic solution. The leads were connected to anew pulse generator, which was placed within a TYRX pouch, placed withinthe pocket and sutured to the prepectoral fascia. The incision was closedin 3 layers in a typical fashion and a Silverlon dressing was used. COMPLICATIONS: No apparent periprocedural complications. DEVICE DATA: Please refer to the above narrative and the attached CardioDoc document. CONCLUSIONS: 1. Successful upgrade of a dual-chamber permanent pacemaker to abiventricular pacemaker. 2. There were no apparent complications. Results are automatically released to your [employer] accountonce available, in compliance with federal regulations. This means thatyou may see your results before your provider has had a chance to reviewthem. Please allow 2-3 business days for your provider to comment on theresults. MD LUCIA NEELY/ADAM/MARJAN VJID: [id number] TJID: [id number] Shant Goodwin MD CV IMAGIN G * CBC with Platelets no Differential (08/24/2023 11:38 AM CDT) [facility] WHITE BLOOD COUNT 6.5 4.5 - 11.0 thou/cu mm 08/24/2023 11:59 AM CDT [facility] RED BLOOD COUNT 4.34 4.30 - 5.90 mil/cu mm 08/24/2023 11:59 AM CDT [facility] HEMOGLOBIN 13.5 13.5 - 17.5 g/dL 08/24/2023 11:59 AM CDT [facility] HEMATOCRIT 39.4 37.0 - 53.0 % 08/24/2023 11:59 AM CDT [facility] MCV 91 80 - 100 fL 08/24/2023 11:59 AM CDT [facility] MCH 31.1 26.0 - 34.0 pg 08/24/2023 11:59 AM CDT [facility] MCHC 34.3 32.0 - 36.0 g/dL 08/24/2023 11:59 AM CDT [facility] RDW 13.0 11.5 - 15.5 % 08/24/2023 11:59 AM CDT [facility] PLATELET COUNT 195 140 - 440 thou/cu mm 08/24/2023 11:59 AM CDT [facility] MPV 9.3 6.5 - 11.0 fL 08/24/2023 11:59 AM CDT [facility] NRBC 0.0 % 08/24/2023 11:59 AM CDT [facility] ABS NRBC 0.0 thou /cu mm 08/24/2023 11:59 AM CDT [facility] Blood BLOOD SPECIMEN / Unknown IV Start / Unknown 08/24/2023 11:38 AM CDT 08/24/2023 11:44 AM CDT Shant Goodwin MD HEMATOLOG Y [facility] [address] [place] [address], * (ABNORMAL) Basic Metabolic Panel (08/24/2023 11:38 AM CDT) SODIUM 133(L) 136 - 145 mmol/L 08/24/2023 12:18 PM CDT [facility] POTASSIUM 4.6 3.5 - 5.1 mmol/L 08/24/2023 12:18 PM T [facility] CHLORIDE 97(L) 98 - 107 mmol/L 08/24/2023 12:18 PM T [facility] CO2,TOTAL 27 22 - 29 mmol/L 08/24/2023 12:18 PM T [facility] ANION GAP 9 5 - 18 08/24/2023 12:18 PM T [facility] GLUCOSE 108(H) 70 - 99 mg/dL 08/24/2023 12:18 PM T [facility] CALCIUM 9.7 8.8 - 10.2 mg/dL 08/24/2023 12:18 PM T [facility] BUN 17 8 - 23 mg/dL 08/24/2023 12:18 PM T [facility] CREATININE 1.19 0.70 - 1.20 mg/dL 08/24/2023 12:18 PM T [facility] BUN/CREAT RATIO 14 10 - 20 12:18 PM T [facility] eGFR 61(L) >90 mL/min/1.7 3m2 08/24/2023 12:18 PM T [facility] Comment:As of 2021, eG FR is calculated by the CKD-EPI creatinine equation without race adjustment. ??eGFR can be influenced by muscle mass, exercise, and diet. ??The reported eGFR is an estimation only and is only applicable if the renal function is stable. Blood BLOOD SPECIMEN / Unknown IV Start / Unknown 08/24/2023 11:38 AM CDT 08/24/2023 11:44 AM CDT Shant Goodwin MD CHEMISTRY [facility] [address] [place] [address], * ECHO TTE LIMITED WO CONTRAST (08/07/2023 9:09 AM WORD PROCESSING OPERATOR) AORTIC VALVE MEAN PG 11 mmHg EJECTION FRACTION 34 % PEAK TR VELOCITY 3.0 m/s LVEDD 4.6 cm Anatomical Region Laterality Modality Ultrasound 08/07/2023 8:45 AM WORD PROCESSING OPERATOR Narrative 08/07/2023 9:42 AM WORD PROCESSING OPERATOR ECHOCARDIOGRAM [place] CED ?Accession#: ?? [id number] : ?1940 83 years Study Date: ?? 08/07/2023 8:45:47 AM Gender: M ? BP: ? 167/89 mmHg Height: 168.00 cm ? BSA: ?1.81 m? ? ? Weight: 71.00 kg ?Tech: ? MSR ?Referring MD: CHAZ BELL Site: ? [facility] Reading Location: Mobile OP Patient Location: Outpatient. Procedure: Limited Spectral Doppler, Limited 2D and Color Doppler. Indication for study: PVC (premature ventricular contraction) Cardiac Rhythm: Irregular.Study quality: Final Impressions: 1. Normal left ventricular size, mildly increased wall thickness, moderately reduced global systolic function, calculated EF of 34 %. 2. Moderately enlarged left atrium. 3. The aortic valve is calcified, low flow low gradient aortic stenosis, likely moderate but conflicting doppler date. Mild aortic regurgitation. 4. The mitral valve is normal, mild mitral regurgitation. 5. Mild-moderate tricuspid regurgitation. 6. Compared to prior sutdy from 05/22/23, LVEF is slightly lower (prior was 40- 45%). Change in degree of reflects lower cardiac output and renders accurate determination difficult. Chamber Sizes and Function Normal left ventricular size, mildly increased wall thickness, moderately reduced global systolic function, calculated EF of 34 %. Left atrial size is moderately enlarged. Right ventricular cavity size is normal, global systolic RV function is normal. Pacing wire/catheter visualized in the right ventricle. The right atrium is normal. The pulmonary artery is not well visualized. The sinus of Valsalva is normal sized. The ascending aorta is normal sized. Valves, RV Pressures and Diastolic Function The aortic valve is calcified, moderate stenosis and mild regurgitation. The mitral valve is normal in structure, mild mitral regurgitation. Normal diastolic function. The tricuspid valve is normal in structure. Tricuspid regurgitation is mild- moderate. The tricuspid regurgitant velocity is 3.0 m/s, the estimated right ventricular systolic pressure is 36 mmHg plus right atrial pressure. There is mildly increased estimated pulmonary pressure by tricuspid regurgitation velocity and right atrial pressure. The pulmonic valve is normal. No pulmonary regurgitation. Masses, Effusion, Shunts There is no pericardial effusion. The inferior vena cava is normal sized, respiratory size variation greater than 50%. No left to right shunting was detected by limited color flow Doppler interrogation of the interatrial septum. MEASUREMENTS AND CALCULATIONS 2-D Measurements and LV Function: LVID (d) 4.6 cm Planimetered EF 34 % LVID (s) 4.1 cm LV FS% (2D) ? 10 % IVS (d) ??1.2 cm LVOT diameter ?? 2.1 cm LVPW (d) 1.2 cm HR ?65 bpm Ao Sinus 2.9 cm RV Max 4C (d) ?? 4.9 cm Asc Ao ?? 3.2 cm Diastology: Mitral ?Tissue Doppler E Peak 0.6 m/s ??e', Septum ? 0.03 m/s A Peak 0.8 m/s ??e', Lateral ?0.10 m/s E/A ?0.7 ?E/e' Average ?? 8.84 DT ? 206 msec Aortic Valve: Vmax ? 2.1 m/s ??[place] (V) ?? 1.07 cm? AI P 1/2 442 msec VTI ?0.53 m ?? [place] (I) ?? 0.94 cm? ? ? LVOT V max 0.6 m/s ??Max PG ?17 mmHg LVOT VTI ?? 0.14 m ?? Mean PG ?? 11 mmHg SV ? 50 ml ?Dim Index 0.26 SV index ?? 27 ml/m? ? ? CO ?3.2 l/min ?CI ?1.8 l/min/m? ? ? Mitral Valve: MVA ?3.7 cm? ? ? MV P 1/2 60 msec Tricuspid Valve and estimated PA pressures: TR Vmax 3.0 m/s TR maxG 36 mmHg . This study was interpreted by an [facility] accredited facility. ??Final ?? Procedure Note Domingo Stark MD - 08/07/2023 ECHOCARDIOGRAM ANISH COUGHLIN : 1940 83 years Study Date: 08/07/2023 8:45:47 AM Gender: M BP: 167/89 mmHg Height: 168.00 cm BSA: 1.81 m? ? ? Weight: 71.00 kg Tech: MSR Referring MD: CHAZ BELL Site: [facility] Reading Location: Mobile OP Patient Location: Outpatient. Procedure: Limited Spectral Doppler, Limited 2D and Color Doppler. Indication for study: PVC (premature ventricular contraction) Cardiac Rhythm: Irregular.Study quality: Final Impressions: 1. Normal left ventricular size, mildly increased wall thickness,moderately reduced global systolic function, calculated EF of 34 %. 2. Moderately enlarged left atrium. 3. The aortic valve is calcified, low flow low gradient aortic stenosis,likely moderate but conflicting doppler date. Mild aortic regurgitation. 4. The mitral valve is normal, mild mitral regurgitation. 5. Mild-moderate tricuspid regurgitation. 6. Compared to prior sutdy from 05/22/23, LVEF is slightly lower (priorwas 40- 45%). Change in degree of reflects lower cardiac output andrenders accurate determination difficult. Chamber Sizes and Function Normal left ventricular size, mildly increased wall thickness, moderatelyreduced global systolic function, calculated EF of 34 %. Left atrial sizeis moderately enlarged. Right ventricular cavity size is normal, globalsystolic RV function is normal. Pacing wire/catheter visualized in theright ventricle. The right atrium is normal. The pulmonary artery is notwell visualized. The sinus of Valsalva is normal sized. The ascendingaorta is normal sized. Valves, RV Pressures and Diastolic Function The aortic valve is calcified, moderate stenosis and mild regurgitation.The mitral valve is normal in structure, mild mitral regurgitation. Normaldiastolic function. The tricuspid valve is normal in structure. Tricuspidregurgitation is mild- moderate. The tricuspid regurgitant velocity is 3.0m/s, the estimated right ventricular systolic pressure is 36 mmHg plusright atrial pressure. There is mildly increased estimated pulmonarypressure by tricuspid regurgitation velocity and right atrial pressure.The pulmonic valve is normal. No pulmonary regurgitation. Masses, Effusion, Shunts There is no pericardial effusion. The inferior vena cava is normal sized,respiratory size variation greater than 50%. No left to right shunting wasdetected by limited color flow Doppler interrogation of the interatrialseptum. MEASUREMENTS AND CALCULATIONS 2-D Measurements and LV Function: LVID (d) 4.6 cm Planimetered EF 34 % LVID (s) 4.1 cm LV FS% (2D) 10 % IVS (d) 1.2 cm LVOT diameter 2.1 cm LVPW (d) 1.2 cm HR 65 bpm Ao Sinus 2.9 cm RV Max 4C (d) 4.9 cm Asc Ao 3.2 cm Diastology: Mitral Tissue Doppler E Peak 0.6 m/s e', Septum 0.03 m/s A Peak 0.8 m/s e', Lateral 0.10 m/s E/A 0.7 E/e' Average 8.84 DT 206 msec Aortic Valve: Vmax 2.1 m/s [place] (V) 1.07 cm? ? ? AI P 1/2 442 msec VTI 0.53 m [place] (I) 0.94 cm? ? ? LVOT V max 0.6 m/s Max PG 17 mmHg LVOT VTI 0.14 m Mean PG 11 mmHg SV 50 ml Dim Index 0.26 SV index 27 ml/m? ? ? CO 3.2 l/min CI 1.8 l/min/m? ? ? Mitral Valve: MVA 3.7 cm? ? ? MV P 1/ 60 msec Tricuspid Valve and estimated PA pressures: TR Vmax 3.0 m/s TR maxG 36 mmHg . This study was interpreted by an [facility] accredited facility. Final Chaz Bell MD ECHO ORD * ZIO PATCH XT - weekly to monthly symptoms. Specifiy duration 3 days, 1 week, or 2 weeks (2:00 AM WORD PROCESSING OPERATOR) Chaz Bell MD CARDIAC SERVIC ES ORD from Last 3 Months Advance Directives Documents on File Type Date Recorded Patient Rn Coronary Care Unit Expl anation Healthcare Directive 08/04/2009 HEALTH CARE DIRECTIVE, [facility], 08/04/2009 * Full Code (Latest Code Status on File) Date Activated Date Inactivated Comments 01/13/2023 4:48 PM 01/14/2023 1:17 PM Question Answer Comments Code Status Discussion: Other * Full Code Date Activated Date Inactivated Comments 01/11/2022 1:12 PM 01/14/2022 2:43 PM Question Answer Comments Code Status Discussion: Reviewed Preferences * Full Code Date Activated Date Inactivated Comments 01/11/2022 6:02 AM 01/11/2022 1:12 PM Question Answer Comments Code Status Discussion: Unable to Assess Preferences, Provider to review later * Full Code Date Activated Date Inactivated Comments 02/18/2020 9:53 AM 02/19/2020 1:18 PM Question Answer Comments Code Status Discussion: Not Discussed * Full Code Date Activated Date Inactivated Comments 06/30/2019 12:54 PM 07/02/2019 6:17 PM Care Teams Glass Technologist Relationship Specialty Start Date End Date Monico Modi MD [address] [place] [address] PCP - General Family Practice 11/10/16 Yong Siddiqi MD [address] [place] [address] [address] Gastroenterology 05/20/11 Dillan Eubanks MD [address] [place] [address] Cardiovascular Disease 05/20/11
--- OUTSIDE RECORDS SUMMARY | 2023-09-14 07:55 | XMS_ITS ---
Author Name Unknown Organization [facility] Address [address] [place] [address] Care Team Providers Care Senior Budget Analyst Name Role Phone Unavailable Unavailable Unavailable Surgery Details Not on file Complications Check Surgery Details section. Procedure Estimated Blood Loss Check Surgery Details section. Procedure Findings Check Surgery Details section. Procedure Specimens Taken Check Surgery Details section.
[2023-09-14] MEDS: SODIUM CHLORIDE 0.9 % (FLUSH) 10 ML SYRINGE IVF (08:10)
[2023-09-14] MEDS: LACTATED RINGERS 1000 ML 1,000 ML 100 ML IV (08:10)
[2023-09-14 08:20] VITALS: BP 149/75; PULSE 72; RESP 16; TEMP 36.6; O2SAT 97; BMI 25.7
--- NOTE | 2023-09-14 09:48 | W.PM.H&PU ---
History & Physical Update History & Physical Update H&P Reviewed and patient assessed: No changes noted
[2023-09-14] MEDS: CEFAZOLIN 2 GM in 0.9 % SODIUM CHLORIDE Mini-bag 100 ML IVPB (09:58)
[2023-09-14] MEDS: BUPIVACAINE 0.25% 30 ML INJECTION (10:03)
[2023-09-14] MEDS: LIDOCAINE 1% MDV 20 ML INJECTION (10:03)
--- NOTE | 2023-09-14 10:17 | W.ANESCHARGE ---
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
--- NOTE | 2023-09-14 10:47 | W.ANESCHARGE ---
Anesthesia Charges Start Date/Time Anesthesia Start Date: 09/14/23 Anesthesia Start Time: 09:36 Stop Date/Time Anesthesia Stop Date: 09/14/23 Anesthesia Stop Time: 11:27 Summary Extremes of Age - Over 70 or under 1: MDA
[2023-09-14 11:24] VITALS: BP 109/52; PULSE 62; RESP 18; TEMP 36.3; O2SAT 95
[2023-09-14 11:40] VITALS: BP 133/67; PULSE 61; RESP 17; O2SAT 98
[2023-09-14 11:55] VITALS: BP 137/84; PULSE 62; RESP 18; TEMP 36.6; O2SAT 98
[2023-09-14 12:10] VITALS: BP 134/77; PULSE 62; RESP 18; TEMP 36.6; O2SAT 98
--- NOTE | 2023-09-14 13:44 | P.GSOP_ITS ---
Operative Note Date of procedure: 09/14/23 Pre-op diagnosis: Left inguinal hernia Post-op diagnosis: Same, indirect hernia Type of Procedure: Open left inguinal hernia repair with placement of mesh Indications: Patient is an 83-year-old male who presented to clinic with a symptomatic left inguinal hernia. Different treatment options including observation versus operative intervention were discussed at length with the patient. Risks and benefits of operative intervention were discussed at length with the patient. Risks included but was not limited to: Bleeding, infection, risk of damage to surrounding structures, possible need for additional procedures, risk of recurrence and postoperative complications such as pneumonia, pulmonary emboli or [place]. All questions and concerns were addressed with the patient agreeing to proceed. Procedure Description: After discussing the risks and benefits of the procedure, the patient signed informed consent.? The operative site was marked and the patient was brought to the operating room and placed on the operating table in supine position.? Care was taken to pad the patient's pressure points.?? The patient was then given sedation by anesthesia.?? The operative site was then prepped and draped in the usual sterile fashion.? A time-out was then performed. Local anesthetic was injected into the skin and subcutaneous tissue overlying the inguinal canal. An oblique incision would was made over the external ring. Dissection was carried down into the subcutaneous tissue using cautery until the external oblique fascia was encountered. This was cleared off. The external ring was identified and after injection of more local anesthetic, the external oblique was incised using a knife. This was extended using the Metzenbaum scissors with care to dissect the underlying cord structures away before cutting. The cord was cleared from the inside of the inguinal canal and looped with a Charlotte drain. A large indirect inguinal hernia was identified. The hernia sac was day of dissected off of the cord structures. After dissecting the hernia sac free it was easily reduced into the abdomen. A piece of polypropylene mesh was obtained and cut to size. This was secured to the pubic tubercle and secured along the inguinal ligament and superiorly along the transversalis fascia with interrupted 0 Nurolon suture. The tails of the mesh were then secured behind the cord, recreating the internal ring. The incision was examined for hemostasis, which was excellent. The external oblique fascia was then reapproximated with absorbable suture. The wound was then closed in layers including Davy's fascia and the dermis with a 3-0 Vicryl. The skin was then closed with a running subcuticular suture of 4-0 Monocryl. Sterile dressings were applied. Instrument sponge and needle counts were correct at the end of the case. The patient was woken and taken to the PACU in stable condition. Findings: Large indirect inguinal hernia, left side. Anesthesia: MAC and local Surgeon: Savanah Lopez MD Estimated blood loss (mL): 5 Condition: stable Disposition: PACU
== END 2023-09-14 12:14 | disposition home or self-care (01) ==
PROVIDERS: PCP Family Medicine; Visit Provider Surgery
PROC: (CPT 49505; principal; 2023-09-14 09:15)
DX: K40.90 Unilateral inguinal hernia, without obstruction or gangrene, not specified as recurrent (principal)
CPT/HCPCS: 49505; 00830; 99100; C1781; J0665; J0690; J2704; J3010; J7120

== ENCOUNTER 2023-09-20 19:48 | Emergency (ER) | payer MEDICARE, BC, SELFPAY ==
[2023-09-20 20:05] VITALS: BP 115/61; PULSE 80; RESP 20; TEMP 36.9; O2SAT 99; BMI 25.2
--- NOTE | 2023-09-20 20:13 | ED_ITS ---
HPI - General Adult General Chief complaint: Headache/Migraine Stated complaint: Hernia surgery last Thurs-severe lower right neck Time Seen by Provider: 09/20/23 20:13 History of Present Illness HPI narrative: CC: Headache pt. had hernia repair about 1 1/2 weeks ago. has had headaches i ntermittently. was seen in clinic yesterday. denies n/v, diarrhea, fevers 83-year-old man here with complaint of headache. Indicating severe and somewhat pulsatile pain at the posterior right low head/upper neck. Seems to have some spread up his head and then can also feel as though his face can get numb with increases in pain. Was seen in primary care yesterday and evaluated. Was recommended for warm packs. He keeps getting shocks of pain going up the from point that he is pressing on the right posterior scalp. Feels a little funny then in his right face. Tonight has gotten worse. Has been going on over the last 5 days and seems to come on or be exacerbated with activity. Was not present prior to surgery. No peripheral weakness or other loss of sensation. Some light sensitivity described. Anticoagulated with Plavix Related Data Home Medications Medication Instructions Recorded Confirmed carvedilol 12.5 mg tablet 6.25 mg PO BID 03/13/22 09/14/23 clonidine HCl 0.1 mg tablet 0.1 mg PO Q12H PRN 03/13/22 09/14/23 clopidogrel 75 mg tablet 75 mg PO DAILY 03/13/22 09/14/23 pramipexole 0.5 mg tablet 0.5 mg PO HS 03/13/22 09/14/23 atorvastatin 80 mg tablet 80 mg PO HS 05/29/22 09/14/23 calcium carb-magnesium carb 400 2 tab PO HS 05/29/22 09/14/23 mg-200 mg tablet nitroglycerin 0.4 mg sublingual 0.4 mg sublingual Q5M PRN chest 05/29/22 09/14/23 tablet pain omeprazole 40 mg capsule,delayed 40 mg PO DAILY 05/29/22 09/14/23 release quetiapine 25 mg tablet 25 mg PO HS 05/29/22 09/14/23 sodium chloride 1,000 mg soluble 500 mg PO BID 05/29/22 09/14/23 tablet magnesium oxide 400 mg (241.3 mg 400 mg PO DAILY 09/12/23 09/14/23 magnesium) tablet melatonin 3 mg capsule 3 mg PO DAILY 09/12/23 09/14/23 multivitamin 1 tab PO DAILY 09/12/23 09/14/23 Previous Rx's Medication Instructions Recorded potassium chloride 10 mEq 20 meq (2 x 10 mEq) PO BIDWM #60 06/01/22 capsule,extended release caps torsemide 20 mg tablet 20 mg PO DAILY@0800 #30 tabs 06/01/22 hydrocodone 5 mg-acetaminophen 325 1 tab PO Q6H PRN pain #10 tabs 09/14/23 mg tablet sennosides 8.6 mg capsule (senna) 8.6 mg PO DAILY PRN constipation 09/14/23 #90 caps Allergies Allergy/AdvReac Type Severity Reaction Status Date / Time amitriptyline [From Elavil] Allergy Verified 09/20/23 20:07 amlodipine Allergy low Verified 09/20/23 20:07 pressures ciprofloxacin Allergy severe Verified 09/20/23 20:07 hives citalopram [From Celexa] Allergy Diarrhea Verified 09/20/23 20:07 erythromycin base Allergy Verified 09/20/23 20:07 escitalopram [From Lexapro] Allergy Depression Verified 09/20/23 20:07 ezetimibe [From Zetia] Allergy Nausea Verified 09/20/23 20:07 hydrochlorothiazide Allergy cramps Verified 09/20/23 20:07 lactose Allergy GI upset Verified 09/20/23 20:07 Penicillins Allergy Hives Verified 09/20/23 20:07 rosuvastatin [From Crestor] Allergy Rash Verified 09/20/23 20:07 sulindac Allergy sedation Verified 09/20/23 20:07 co Q10 Allergy myalgia Uncoded 09/12/23 09:20 Review of Systems Status of ROS: Reports: 6 or more systems reviewed and unremarkable except as noted in History and below [facility] Medical History 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 - Poisoning by other antidysrhythmic drugs, accidental (unintentional), initial encounter (ICD-10) Inguinal hernia of left side without obstruction or gangrene ?K40.90 - Unilateral inguinal hernia, without obstruction or gangrene, not specified as recurrent (ICD-10) BPH (benign prostatic hyperplasia) ?N40.0 - Benign prostatic hyperplasia without lower urinary tract symptoms (ICD-10) Chronic hyponatremia ?E87.1 - Hypo-osmolality and hyponatremia (ICD-10) History of hallucinations ?Z87.898 - Personal history of other specified conditions (ICD-10) GERD (gastroesophageal reflux disease) ?K21.9 - Gastro-esophageal reflux disease without esophagitis (ICD-10) Critical limb ischemia with history of revascularization of same extremity ?I70.229 - Atherosclerosis of [place] arteries of extremities with rest pain, unspecified extremity (ICD-10) ?Z98.890 - Other specified postprocedural states (ICD-10) History of Mobitz type II atrioventricular block ?Z86.79 - Personal history of other diseases of the circulatory system (ICD- 10) Non-STEMI (non-ST elevated myocardial infarction) ?I21.4 - Non-ST elevation (NSTEMI) myocardial infarction (ICD-10) Peripheral artery disease ?I73.9 - Peripheral vascular disease, unspecified (ICD-10) Peripheral neuropathy ?G62.9 - Polyneuropathy, unspecified (ICD-10) Coronary artery disease ?I25.10 - Atherosclerotic heart disease of [place] coronary artery without angina pectoris (ICD-10) Lactose intolerance ?E73.9 - Lactose intolerance, unspecified (ICD-10) Mixed hyperlipidemia ?E78.2 - Mixed hyperlipidemia (ICD-10) Carotid artery stenosis ?I65.29 - Occlusion and stenosis of unspecified carotid artery (ICD-10) Chronic kidney disease ?N18.9 - Chronic kidney disease, unspecified (ICD-10) Generalized anxiety disorder ?F41.1 - Generalized anxiety disorder (ICD-10) RLS (restless legs syndrome) ?G25.81 - Restless legs syndrome (ICD-10) Surgical History S/P TURP ?Z90.79 - Acquired absence of other genital organ(s) (ICD-10) S/P rotator cuff repair ?Z98.890 - Other specified postprocedural states (ICD-10) S/P placement of cardiac pacemaker ?Z95.0 - Presence of cardiac pacemaker (ICD-10) History of total hip replacement ?Z96.649 - Presence of unspecified artificial hip joint (ICD-10) History of CEA (carotid endarterectomy) ?Z98.890 - Other specified postprocedural states (ICD-10) S/P femoral-popliteal bypass surgery ?Z95.828 - Presence of other vascular implants and grafts (ICD-10) S/P coronary artery stent placement ?Z95.5 - Presence of coronary angioplasty implant and graft (ICD-10) History of laparoscopic cholecystectomy ?Z90.49 - Acquired absence of other specified parts of digestive tract (ICD- 10) S/P CABG x 3 ?Z95.1 - Presence of aortocoronary bypass graft (ICD-10) History of coronary angioplasty ?Z98.61 - Coronary angioplasty status (ICD-10) Social History Narrative: Lives in [place]. Independent. 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 Previous smoker. Quit date 1988. No alcohol use. Retired from [employer]. . Five adult children. Highest level of school completed/degree received: 12th grade, no diploma Smoking Status: Former smoker How often do you have a drink containing alcohol: never AUDIT-C Alcohol total score: 0 Non-prescribed substance use: denies use Caffeine: Yes service: No Exam Narrative: Exam Narrative: Accompanied here by his daughter who is very helpful in elucidating recent history. Mr. Velazquez is somewhat hard of hearing. He often has his eyes closed and is placing his right hand at the base of his right side skull. Cranial nerves 2-12 look to be intact; Sensation intact. Moving all extremities without difficulty. Neck is pretty supple. Does not get all the way to 90? of rotation either side but at least 70?. No midline neck tenderness. I do not see any rash. No pulsatile swelling. Reproducible pain just below the right occipital insertion near occipital nerve exit I would say. Moderately kyphotic in the thoracic spine and preferred neck preference seems to be flexed forward a little bit. Const: Vital Signs, click to edit/add: Vital Signs - 24 hr 09/20/23 20:05 09/20/23 22:13 Temperature 98.5 F 98.5 F Pulse Rate [Right Pulse Oximeter] 80 74 Respiratory Rate 20 20 Blood Pressure [Ri ght Upper Arm] 115/61 121/74 Pulse Oximetry 99 99 Oxygen Delivery Me thod Room Air Room Air Documenting provider has reviewed patient's vital signs: yes Course Vital Signs Vital signs: Initial Vital Signs Temperature 98.5 F 09/20/23 20:05 Temperature Source Temporal Artery Scan 09/20/23 20:05 Pulse Rate 80 09/20/23 20:05 Respiratory Rate 20 09/20/23 20:05 Blood Pressure 115/61 09/20/23 20:05 Blood Pressure Mean 79 09/20/23 20:05 Blood Pressure Position Sitting 09/20/23 20:05 Pulse Oximetry 99 09/20/23 20:05 Oxygen Delivery Method Room Air 09/20/23 20:05 Vital Signs Temperature 98.5 F 09/20/23 20:05 Pulse Rate 80 09/20/23 20:05 Respiratory Rate 20 09/20/23 20:05 Blood Pressure 115/61 09/20/23 20:05 Pulse Oximetry 99 09/20/23 20:05 Oxygen Delivery Method Room Air 09/20/23 20:05 Temperature 98.5 F 09/20/23 22:13 Pulse Rate 74 09/20/23 22:13 Respiratory Rate 20 09/20/23 22:13 Blood Pressure 121/74 09/20/23 22:13 Pulse Oximetry 99 09/20/23 22:13 Oxygen Delivery Method Room Air 09/20/23 22:13 Medical Decision Making MDM Narrative Medical decision making narrative: Does not seem to be a trigeminal neuralgia. I think this is inflammation of the occipital nerve. Essentially an occipital neuralgia. I wonder if this may have been caused by some neck support in a less less normal position for Mr. Velazquez during surgery? Less likely radicular from the cervical neck. Did offer test injection with bupivacaine. Discussed risks and benefits. Mr. Velazquez would like to proceed. Cleansed area with alcohol swabs. Injected 2 mL of 0.25% bupivacaine in the area of the occipital nerve foramen, a little inferior to this. On reassessment is remarkably relieved of pain. More relaxed. See patient discharge plan for further discussion Discharge Plan Discharge Clinical Impression: Occipital neuralgia of right side Patient Disposition: Home w/ Parent or Adult Condition: Improved Additional Instructions: I am happy you are feeling better. It appears that something has irritated your occipital nerve. I injected some Marcaine also known as bupivacaine, in the area of the right occipital nerve foramen. I would try to avoid putting pressure in that area and over the next few days. If this recurs, would follow up to consider other sort of injection; could discuss with your primary care provider I think. Prescriptions: No Action clonidine HCl 0.1 mg tablet 0.1 mg PO Q12H PRN Rx Instructions: for hypertensive urgency, 170/90 or greater carvedilol 12.5 mg tablet 6.25 mg PO BID clopidogrel 75 mg tablet 75 mg PO DAILY pramipexole 0.5 mg tablet 0.5 mg PO HS atorvastatin 80 mg tablet 80 mg PO HS nitroglycerin 0.4 mg tablet, sublingual 0.4 mg sublingual Q5M PRN (Reason: chest pain) omeprazole 40 mg capsule,delayed release(DR/EC) 40 mg PO DAILY quetiapine 25 mg tablet 25 mg PO HS calcium carb-magnesium carb 400-200 mg tablet 2 tab PO HS sodium chloride 1,000 mg tablet,soluble 500 mg PO BID potassium chloride 10 mEq Capsule, Extended Release 20 meq PO BIDWM Qty: 60 0RF torsemide 20 mg Tablet 20 mg PO DAILY@0800 Qty: 30 0RF magnesium oxide 400 mg (241.3 mg magnesium) tablet 400 mg PO DAILY melatonin 3 mg capsule 3 mg PO DAILY multivitamin Tablet 1 tab PO DAILY hydrocodone-acetaminophen 5-325 mg tablet 1 tab PO Q6H PRN (Reason: pain) Qty: 10 0RF senna 8.6 mg capsule 8.6 mg PO DAILY PRN (Reason: constipation) Qty: 90 0RF Follow Up/Referrals: Monico Modi MD [Primary Care Provider] - Stand Alone Forms: [employer] Info Instructions
--- OUTSIDE RECORDS SUMMARY | 2023-09-20 20:45 | XMS_ITS | Clinical Summary ---
Author Name Unknown Organization [facility] Address [address] [place] [address] Care Team Providers Care Sr Community Manager Name Role Phone Elsewhere, Pcp Primary Care Provider Unavailabl e Source Comments Patient records contain information from all sites at [facility]. For routine questions regarding patient records, call [phone] during business hours, M-F 8:00 AM - 5:00 PM Central Time. Record requests for emergency care only can be directed to [phone] at any time.[facility] Allergies Active Allergy Reactions Criticality Noted [...] mouth every 4 (four) hours as needed. Active amiodarone (PACERONE) 200 mg tablet Take 200 mg by mouth 2 (two) times a day. Active aspirin [address] tablet Take 81 mg by mouth daily. Active atorvastatin (LIPITOR) 80 mg tablet Take 80 mg by mouth daily. Active cloNIDine (CATAPRES) 0.1 mg tablet Take 0.1 mg by mouth. Take 1 tab for blood pressure greater than 170/90. May repeat in 1 hour. Active tamsulosin (FLOMAX) 0.4 mg 24 hr capsule Take 0.4 mg by mouth daily. Active gabapentin (NEURONTIN) 300 mg capsule Take 600 mg by mouth 2 (two) times a day. Active magnesium oxide (MAG-OX) 400 mg (241.3 mg magnesium) tablet Take by mouth Medrol Dose Pack scheduling ONLY. Active polyethylene glycol (MIRALAX) 17 gram/dose oral powder Take 17 g by mouth 2 (two) times a day as needed. And scheduled daily on Monday Active multivitamin-mineral s-lutein (CENTURY MATURE) tablet Take 1 tablet by mouth daily. Active nitroglycerin (NITROSTAT) 0.[address] 0.4 mg under the tongue every 5 (five) minutes as needed. Active omeprazole (PriLOSEC) [address] capsule Take 40 mg by mouth every morning before breakfast. Active clopidogreL (PLAVIX) 75 mg tablet Take 75 mg by mouth daily. Active pramipexole (MIRAPEX) 0.5 mg tablet Take 0.5 mg by mouth at bedtime. Active simethicone (MYLICON,GAS-X) 125 mg capsule Take 125 mg by mouth every 6 (six) hours as needed. Active timoloL (BETIMOL) 0.5 % ophthalmic solution Administer 1 drop into both eyes daily. Active carvediloL (COREG) 12.5 mg tablet Take 6.25 mg by mouth 2 (two) times a day. 11/24/2021 Active Active Problems Problem Noted Date [...] Femoral popliteal bypass left leg 01/11/2022 at [facility] Clopidogrel lifelong, taking aspirin and statin Last [...] Laura, & RCA and endarectomy to RCA HI (myocardial infarction) (HC) 09/2006 & 2003 Small Non Q-Wave 2006, ? ? NSTEMI (non-ST elevated myocardial infarction) Taking statin and aspirin. Continues on Plavix. Has p.r.n. nitroglycerin sublingual Taking amiodarone for what appears to be some sort of ventricular arrhythmia history Pacemaker Cardiac Status Post 01/30/2022 Overview: PACEMAKER PLACEMENT 02/18/2020 dual chamber PPM Last Assessment & Plan: Follows with [facility]. Carotid Artery Surgery Status Post 01/30/2022 Overview: [...] Last Done Comments COVID-19 Vaccine (6 - 2023-2 4 season) 2023 04/27/2022, 12/10/2021, 07/14/2021, Additional [...] history exists Medical Devices Implanted Type Area Rail Technician Device Identifier Shelf Expiration Date Model / Serial / Lot Stent Icast Covered [id number] - [id number] [id number] Implanted:Qty: 1 on 10/04/2013 Respiratory Stent Other/Legacy - See Implant Description Atrium Description:Device Manufactu rer - [employer]. Body Location - Other. Vascular. Device Status Text - [id number]. Stent Protege Everflex 8 X 20 X 120 - Renae [id number] Implanted:Qty: 1 on 10/04/2013 Vascular Graft Other/Legacy - See Implant Description ev3 Description:Device Manufactu rer - EV3. Body Location - Other. Vascular. Device Status Text - [id number]. Care Teams Sr Community Manager Relationship Specialty Start Date End Date Elsewhere, Pcp PCP - General Internal Medicine 02/23/22
--- OUTSIDE RECORDS SUMMARY | 2023-09-20 20:45 | XMS_ITS | Continuity of Care Document ---
Author Name Unknown Organization [facility] Address [address] [address] [place] [address] Phone Care Team Providers Care Radial Drill Operator For Plastic Name Role Phone Renu QUIJANO, Shari Unavailable Unavailab le Advance Directives Directive Yes / No Effective Date File Name No Information Encounters Encounter Description Practice Location Reason(s) For Visit Diagnoses Date Provider Providers Copied on Encounter [facility], [address] [address], [place], [place], [id number], [place] tel:[phone] [facility] No Information Sep-2 0-200 5 Renu QUIJANO Shari. [address] [facility], [facility] [address], [place], [place], [id number], [place]. tel:[phone] Referring Provider: Herrera Dorman MD L, [address], [place], [address]. tel:[phone] Family History Family Member Type Diagnosis Age At Onset No Information Payers Payer name Insurance type Covered alliance party ID Authoriza tion(s) Medicare [facility] MB [id number] Social History Type Description Quantity Date Captured Comments Sex Male Smoking Status No Information Chief Complaint And Reason For Visit No Information Reason For Referral Reason For Referral No Information History Of Present Illness Encounter Date Complaint History Of Prese nt Illness No Information Functional Status Date Functional Assessmen t No Information Instructions Date Instruction Additional Infor mation No Information Assessments Type Assessment Date No Information Patient Care Teams Name Effective Dates (start - stop) Status Members No Information
--- OUTSIDE RECORDS SUMMARY | 2023-09-20 20:45 | XMS_ITS ---
Author Name Unknown Organization [facility] Address [address] [place] [address] Care Team Providers Care Dry Plasterer Name Role Phone Unavailable Unavailable Unavailable Surgery Details Not on file Complications Check Surgery Details section. Procedure Estimated Blood Loss Check Surgery Details section. Procedure Findings Check Surgery Details section. Procedure Specimens Taken Check Surgery Details section.
--- OUTSIDE RECORDS SUMMARY | 2023-09-20 20:45 | XMS_ITS | Clinical Summary ---
Author Name Unknown Organization [employer] [facility] [employer] [facility] Address [place], [place] [address] Care Team Providers Care Lot Technician Name Role Phone Yong Siddiqi MD Unavailable [phone] FlyDillan stone MD Unavailable Rowan vailable Monico Modi MD [...] daily. 180 Tablet 3 08/17/19 24 Active losartan (COZAAR) 25 mg tabletIndications :Labile hypertension Take 0.5 Tablets (12.5 mg) by mouth once daily. 15 Tablet 11 09/13/19 24 Active Sennosides 8.6 mg cap Take 8.6 mg by mouth once daily. 09/14/19 24 Active apixaban (ELIQUIS) 5 mg tabletIndications :Atrial flutter, unspecified type (HC) Take 1 Tablet (5 mg) by mouth two times daily. 60 Tablet 1 09/20/19 24 Active clopidogreL (PLAVIX) 75 mg tabletIndications :NSTEMI (non-ST elevated myocardial infarction) (HC),History of coronary angioplasty with insertion of stent TAKE ONE TABLET BY MOUTH EVERY MORNING 90 Tablet 3 10/11/19 23 024 Discontinued diclofenac topical (VOLTAREN) 1 % gelIndications:Ba ck [...] add note to specify (E-cancel not sent)) clopidogreL (PLAVIX) 75 mg tabletIndications :NSTEMI (non-ST elevated myocardial infarction) (HC),History of coronary angioplasty with insertion of stent Take 1 Tablet (75 mg) by mouth every morning. HOLD for one week, resume on 09/01/2023 08/25/19 24 024 Discontinued(*M ed complete/Regime n complete/Level of care change) amLODIPine (NORVASC) 2.5 mg tabletIndications :Labile hypertension Take 1 Tablet (2.5 mg) by mouth once daily. 30 Tablet 12 08/31/19 24 024 Discontinued(*A llergic/Adverse Rxn/Side Effects) Active Problems Patient Care Coordination No te Formatting of this note migh t be different from the original. HF/Structural/Prevention Research Eligibility Review Date: 06/26/19 Upcoming Visit Location: [facility] Age: 79 y.o. 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 L popliteal 9-15-10/28/2008 12/13/2011 Overview: S/p Left common femoral endarterectomy and R SFA stent (11/23/2011) Other dyspnea and respiratory abnormality 03/17/2008 03/08/2011 Dizziness and giddiness 01/22/2008/07/2021 Shortness of breath 01/22/2008 03/08/20 11 Esophageal reflux 07/10/2007 07/26/2012 Overview: EGD 06/2009 benign gastric polyps EGD 06/2013 benign gastric polyps Cor Athrscl-Uns Vessel 10/03 Overview: -prior ME's in 1995, 2000 -CABG 1995 -Multiple PCI with 8 stents, last 03/12 -Myoview in 08/11 with fixed inferior defect, minimal urbano-infarct ischemia, LVEF 60% Pure hypercholesterolemia Unspecified Essential Hypertension 12/13/2011 Other and Unspecified Hyperlipidemia 02/17/2012 Encounters Date Type Department Care Team Description 09/18/2023 1:00 PM CDT Office Visit [facility] [address] [place] [address] Anthony Clark MD Headache (Had LEFT Inguinal Hernia Surgery on 09/14/2023./Having headaches ever since. Back side of head on the RIGHT side. /Sitting / resting helps. /Gets lightheaded with the pain/Received alarm from [employer] - irregular heart rhythm ) 09/18/2023 Orders Only [facility] [address] [place] [address] Anthony Clark MD 1 scan: (1-Ord) worksheet 09/18/2023 Telephone [facility] [address] [place] [address] Anthony Clark MD Device Check (Aflutter) 09/18/2023 Telephone [facility] [address] [place] [phone] Saturnino Peterson RN Device Check 09/18/2023 Travel 09/18/2023 Nurse Triage [facility] [address] [place] [address] Monico Modi MD Error-please disregard (Unable to reach daughter on callback. ) 09/18/2023 Telephone [facility] [address] [place] [phone] Lawanda Zeng RN Device Check (Pacemaker Evaluation - Alert for atrial arrhythmia) 09/14/2023 8:00 AM CDT Office Visit [facility] at [facility] [address] [place] [address] Savanah Lopez MD 09/14/2023 Orders Only [facility] Scanner 1 scan: (1-Ord) [place], OPEN LT INGUINAL HERNIA REPAIR W/REPLACEMENT OF MESH, 09/14/2023 09/08/2023 1:40 PM CDT Preop Visit [facility] [address] [place] [address] Monico Modi MD Preoperative Exam (DOS: 09/14/2023, hernia repair, Dr. Lopez, [facility]) 09/08/2023 Travel 09/06/2023 4:15 PM CDT Office Visit [facility] [address] [place] [address] Savanah Lopez MD Consult (Left inguinal hernia-getting worse) 09/06/2023 Travel 09/04/2023 Travel 08/31/2023 4:35 PM CDT Office Visit [facility] [address] [place] [address] Monico Modi MD Hospital F/U (ANW, 08/24/2023 - 08/25/2023, pacemaker replaced) 08/31/2023 Travel 08/24/2023 1:14 PM CDT Anesthesia Event [facility] [address] [place] [address] Huey Galaviz MD Anderson, Rebecca Faye, MD 08/24/2023 10:52 AM CDT - 08/25/2023 11:22 AM CDT Hospital Encounter [facility] [address] [place] [address] Shant Goodwin MD Milshteyn, Mark L, MD Coronary artery disease involving [place] coronary artery of [place] heart without angina pectoris (Primary Dx); NSTEMI (non-ST elevated myocardial infarction) (HC); History of coronary angioplasty with insertion of stent; Status post placement of cardiac pacemaker; HFrEF (heart failure with reduced ejection fraction) (HC) Discharge Disposition: Home Self Care 08/24/2023 Travel 08/17/2023 1:00 PM CDT Office Visit [facility] [address] [place] [phone] Chaz Bell MD CV Electrophysiology Est (per Dr. Bell ok'd to take telehrt spot to discuss BIV PPM with echo prior//PCP: Monico Modi MD) 08/17/2023 Travel 08/07/2023 9:00 AM CLIENT SERVER DEVELOPER Ancillary Procedure [facility] [address] [place] [address] 08/07/2023 Travel 07/18/2023 Travel from Last 3 Months Immunizations Name Administration Dates Next Due AMB Influenza, IIV3 (Age >=3 years)(Flu Clinic Only) 02/28/2013 COVID-19 vaccine (Moderna 100mcg/0.5mL) PF, MDV 07/30/2020 COVID-19 vaccine (Pfizer-Bio NTech 30mcg/0.3mL) 12YO+ BIVALENT PF, MDV 04/27/2022 COVID-19 vaccine (Pfizer-Bio NTech 30mcg/0.3mL) 12YO+ REYNA-SUCROSE PF, MDV 12/10/2021,07/14/2021 [...] Sign Reading Time Taken Comments Blood Pressure 142/60 09/18/2023 1:44 PM CDT Pulse 61 09/18/2023 1:08 PM CDT Temperature 36.6 ??C (97.9 ??F) 08/25/2023 7:40 AM CD T Respiratory Rate 18 08/25/2023 7:40 AM CDT Oxygen Saturation 100% 09/18/2023 1:07 PM CDT Inhaled Oxygen Concentration - - Weight 70.9 kg (156 lb 6.4 oz) 09/18/2023 1:07 P M CDT Height 167 cm (5' 5.75) 09/08/2023 1:33 PM CDT Body Mass Index 25.44 09/08/2023 1:33 PM CDT Plan of Treatment Upcoming Encounters Date Type Department Care Team (Late st Contact Info) Description 10/04/2023 2:15 PM CDT Office Visit [facility] [address] [place] [address] Savanah Lopez MD [address] [place] [address] 11/20/2023 Cardiac Device Check [facility] [phone] 12/12/2023 2:30 PM CDT Cardiac Device Check [facility] at [facility] [address] [place] [phone] Health Maintenance Due Date Last Done Comments [...] MAINTAINS BP less than 140/90 Blood Pressure No Alpesh Rodgers MD Medical Devices Implanted Type Area J2Ee Engineer Device Identifier Shelf Expiration Date Model / Serial / Lot Patch Vasc 0.8x8cm Biological Peripatch - [id number] Implanted:Qty: 1 on 11/23/2011 by Annemarie King MD at [facility] Left: Femoral Artery [employer] 03/24/2014 0.8P8# / / [id number] Urbano-Guard [id number] - [id number] Implanted:Qty: 1 on 05/24/2012 by Annemarie King MD at [facility] Right: Femoral Artery [employer] 11/25/2015 [id number]# / / [id number] Patch Vasc 0.8x8cm Xenosure Biological Pericardial - [id number] Implanted:Qty: 1 on 08/12/2016 by Zen Morales MD at [facility] Right: Carotid Artery [employer] 03/02/2022 0.8P8# / / [id number] Procedures Procedure Name Priority Date/Time Associated Diagnosis Comments [place] READING EKG - NO CHARGE, COMP ONLY Routine 09/18/2023 2:41 PM CDT Paroxysmal atrial fibrillation (HC) EKG 12 LEAD Routine 09/18/2023 2:41 PM CDT Paroxysmal atrial fibrillation (HC) SCAN-OPERATIVE/PRO CEDURE REPORT 09/14/2023 12:00 AM CDT PACER JESUS DUAL CHAMBER WO REPROG Routine [...] LIMITED WO CONTRAST Routine 08/07/2023 9:09 AM CLIENT SERVER DEVELOPER PVC (premature ventricular contraction) EXTENDED HOLTER Routine 08/02/2023 12:00 AM CLIENT SERVER DEVELOPER PVC (premature ventricular contraction) from Last 3 Months Results * EKG 12 LEAD (09/18/2023 2:41 PM CDT) Only the most recent of4 resultswithin the time period is included. Anthony Clark MD EKG ORD * [place] READING EKG - NO CHARGE, COMP ONLY (09/18/2023 2:41 PM CDT) Anthony Clark MD PB - PROVIDER CHARLEY LAWSON * SCAN-OPERATIVE/PROCEDURE REPORT (09/14/2023 12:00 AM CDT) Scanner OTHER * PACER JESUS??DUAL CHAMBER WO REPROG [[id number]] (08/25/2023 9:04 AM CDT) Narrative Chaz Bell MD - 08/25/2023 9:04 AM CDT Costa Perla RN ? 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 Implanting MD: Chaz Bell MD DEVICE DATA J2Ee Engineer Medtronic: Model [id number] Percepta Quad INVASIVE CARDIOVASCULAR TECHNOLOGIST-p MRI ?? Implant Date 08/24/2023 LEAD DATA Atrial Lead: J2Ee Engineer Medtronic: Model [id number] ??59 cm Implant Date 02/18/2020 RV Lead: J2Ee Engineer Medtronic: Model [id number] 58 cm Implant Date 02/18/2020 LV Lead: J2Ee Engineer Medtronic: Model [id number] ??78 cm Implant Date 08/24/23 Advisory: none Location of evaluation: [facility] Reason for evaluation: Routine, first day post [...] - since 08/24/23 Atrial paced: 18.3%, Total INVASIVE CARDIOVASCULAR TECHNOLOGIST paced: 96.5% (BiV: 99.9%, LV: 0.0%) + [...] will follow up with pacemaker clinic in [place] on 12/12/2023, appointment given. ??Pt verbalized understanding of the instructions that were given and written information was provided. ??Pt's monitor was paired to the new device. Follow up: 3 months in [place] on 12/12/23. Routine follow up: 4 month carelink with [facility]. Signed By: ??Costa Perla RN, ??CCDS ?? 08/25/2023 David Giron MD CARDIAC SERVICES ORD * SCAN-CARDIAC STRIP (08/25/2023 7:39 AM CDT) [...] @ Aug 25 2023 ??7:26AM (Electronically Signed) [email or web address] Narrative 08/25/2023 7:26 AM CDT For Patients: [...] For Patients: As a result of the Cures Act, medical imagingexams and procedure reports [...] @ Aug 25 2023 7:26AM (Electronically Signed) [email or web address] Chaz Bell MD GENERAL IMAGIN G * [...] axillary vein x1. Over this wire, a 9-Panamanian SafeSheath wasplaced through which a Wholey wire [...] with a quadripolar electrophysiology lead and a Medtronic Cougarwire. In multiple bifurcations in the distal [...] complications. Results are automatically released to your [employer] accountonce available, in compliance with federal regulations. This means thatyou may see your results before your provider has had a chance to reviewthem. Please allow 2-3 business days for your provider to comment on theresults. MD LUCIA NEELY/ADAM/MARJAN VJID: [id number] TJID: [id number] Shant Goodwin MD CV IMAGIN G * CBC with Platelets no Differential (08/24/2023 11:38 AM CDT) [facility] Signature WHITE BLOOD COUNT 6.5 4.5 - 11.0 thou/cu mm 08/24/2023 11:59 AM CDT [facility] RED BLOOD COUNT 4.34 4.30 - 5.90 mil/cu mm 08/24/2023 11:59 AM CDT [facility] HEMOGLOBIN 13.5 13.5 - 17.5 g/dL 08/24/2023 11:59 AM CDT [facility] HEMATOCRIT 39.4 37.0 - 53.0 % 08/24/2023 11:59 AM CDT [facility] MCV 91 80 - 100 fL 08/24/2023 11:59 AM CDT [facility] MCH 31.1 26.0 - 34.0 pg 08/24/2023 11:59 AM CDT [facility] MCHC 34.3 32.0 - 36.0 g/dL 08/24/2023 11:59 AM CDT [facility] RDW 13.0 11.5 - 15.5 % 08/24/2023 11:59 AM CDT [facility] PLATELET COUNT 195 140 - 440 thou/cu mm 08/24/2023 11:59 AM CDT [facility] MPV 9.3 6.5 - 11.0 fL 08/24/2023 11:59 AM CDT [facility] NRBC 0.0 % 08/24/2023 11:59 AM CDT [facility] ABS NRBC 0.0 thou /cu mm 08/24/2023 11:59 AM CDT [facility] Blood BLOOD SPECIMEN / Unknown IV Start / Unknown 08/24/2023 11:38 AM CDT 08/24/2023 11:44 AM CDT Shant Goodwin MD HEMATOLOG Y [facility] [address] [place] [address], * (ABNORMAL) Basic Metabolic Panel (08/24/2023 11:38 AM CDT) SODIUM 133(L) 136 - 145 mmol/L 08/24/2023 12:18 PM CDT [facility] POTASSIUM 4.6 3.5 - 5.1 mmol/L 08/24/2023 12:18 PM CDT [facility] CHLORIDE 97(L) 98 - 107 mmol/L 08/24/2023 12:18 PM T [facility] CO2,TOTAL 27 22 - 29 mmol/L 08/24/2023 12:18 PM T [facility] ANION GAP 9 5 - 18 08/24/2023 12:18 PM T [facility] GLUCOSE 108(H) 70 - 99 mg/dL 08/24/2023 12:18 PM T [facility] CALCIUM 9.7 8.8 - 10.2 mg/dL 08/24/2023 12:18 PM T [facility] BUN 17 8 - 23 mg/dL 08/24/2023 12:18 PM T [facility] CREATININE 1.19 0.70 - 1.20 mg/dL 08/24/2023 12:18 PM [facility] BUN/CREAT RATIO 14 10 - 20 12:18 PM T [facility] eGFR 61(L) >90 mL/min/1.7 3m2 08/24/2023 12:18 PM [facility] Comment:As of 2021, eG [...] 11:44 AM CDT Shant Goodwin MD CHEMISTRY [facility] [address] [place] [address], * ECHO TTE LIMITED WO CONTRAST (08/07/2023 9:09 AM CLIENT SERVER DEVELOPER) AORTIC VALVE MEAN PG 11 mmHg EJECTION FRACTION 34 % PEAK TR VELOCITY 3.0 m/s LVEDD 4.6 cm Anatomical Region Laterality Modality Ultrasound 08/07/2023 8:45 AM CLIENT SERVER DEVELOPER Narrative 08/07/2023 9:42 AM CLIENT SERVER DEVELOPER ECHOCARDIOGRAM ANISH COUGHLIN ?Accession#: ?? [id number] : ?1940 83 years Study Date: ?? 08/07/2023 8:45:47 AM Gender: M ? BP: ? 167/89 mmHg Height: 168.00 cm ? BSA: ?1.81 m? ? ? Weight: 71.00 kg ?Tech: ? MSR ?Referring MD: CHAZ BELL Site: ? [facility] Reading Location: Mobile OP Patient Location: Outpatient. [...] . This study was interpreted by an [facility] accredited facility. ??Final ?? Procedure Note Domingo Stark MD - 08/07/2023 ECHOCARDIOGRAM ANISH COUGHLIN : 1940 83 years Study Date: 08/07/2023 8:45:47 AM Gender: M BP: 167/89 mmHg Height: 168.00 cm BSA: 1.81 m? ? ? Weight: 71.00 kg Tech: MARY Referring MD: CHAZ BELL Site: [facility] Reading Location: Mobile OP Patient Location: Outpatient. [...] MVA 3.7 cm? ? ? MV P 1/2 60 msec Tricuspid Valve and estimated PA pressures: TR Vmax 3.0 m/s TR maxG 36 mmHg . This study was interpreted by an [facility] accredited facility. Final Chaz Bell MD ECHO ORD * ZIO PATCH XT - weekly to monthly symptoms. Specifiy duration 3 days, 1 week, or 2 weeks (2:00 AM CLIENT SERVER DEVELOPER) Chaz Bell MD CARDIAC SERVIC ES ORD from Last 3 Months Advance Directives Documents on File Type Date Recorded Patient Director Child Development Center Expl anation Healthcare Directive 08/04/2009 HEALTH CARE DIRECTIVE, [facility], 08/04/2009 * Full Code (Latest Code Status [...] 12:54 PM 07/02/2019 6:17 PM Care Teams Lot Technician Relationship Specialty Start Date End Date Monico Modi MD [address] [place] [address] PCP - General Family Practice 11/10/16 Yong Siddiqi MD [address] [place] [address] Gastroenterology 05/20/11 Dillan Eubanks MD [address] [place] [address] [address] Cardiovascular Disease 05/20/11
--- OUTSIDE RECORDS SUMMARY | 2023-09-20 20:45 | XMS_ITS | Referral Summary ---
Author Name Unknown Organization [facility] Address [address] [place] [address] Care Team Providers Care E Commerce Architect Name Role Phone Elsewhere, Pcp Primary Care Provider Unavailabl e Source Comments Patient records contain information from all sites at [facility]. For routine questions regarding patient records, call [phone] during business hours, M-F 8:00 AM - 5:00 PM Central Time. Record requests for emergency care only can be directed to [phone] at any time.[facility] Allergies Active Allergy Reactions Criticality Noted Date [...] Femoral popliteal bypass left leg 01/11/2022 at [facility] Clopidogrel lifelong, taking aspirin and [...] Laura, & RCA and endarectomy to RCA MT (myocardial infarction) (HC) 09/2006 & 2003 Small Non Q-Wave 2006, ? ? NSTEMI (non-ST elevated myocardial infarction) Taking statin and aspirin. Continues on Plavix. Has p.r.n. nitroglycerin sublingual Taking amiodarone for what appears to be some sort of ventricular arrhythmia history Pacemaker Cardiac Status Post 01/30/2022 Overview: PACEMAKER PLACEMENT 02/18/2020 dual chamber PPM Last Assessment & Plan: Follows with [facility]. Carotid Artery Surgery Status Post 01/30/2022 Overview: [...] on file Medical Devices Implanted Type Area Filling Winder Device Identifier Shelf Expiration Date Model / Serial / Lot Stent Icast Covered [id number] - [id number] [id number] Implanted:Qty: 1 on 10/04/2013 Respiratory Stent Other/Legacy - See Implant Description Atrium Description:Device Manufactu rer - [employer]rium [employer]. Body Location - Other. Vascular. Device Status Text - [id number]. Stent Protege Everflex 8 X 20 X 120 - Renae [id number] Implanted:Qty: 1 on 10/04/2013 Vascular Graft Other/Legacy - See Implant Description ev3 Description:Device Manufactu rer - EV3. Body Location - Other. Vascular. Device Status Text - [id number]. Care Teams E Commerce Architect Relationship Specialty Start Date End Date Elsewhere, Pcp PCP - General Internal Medicine 02/23/22
--- OUTSIDE RECORDS SUMMARY | 2023-09-20 20:46 | XMS_ITS | Data Portability ---
Author Name Unknown Address [address] [place] [address] Phone [phone] Organization [facility] Address [address] [place] [address] Care Team Providers Care Levi Maker Name Role Phone CONNOR MIKE Primary Care [...] By Organization Details Last Modified Time 12/20/2021 [id number] Needs to follow up with LEVY [email or web address] Not available 12/20/2021 15:03:05 Reason for Referral None Reported. Procedures Surgical History Date Name Laterality Status Provider Name and Address Organization Details Recorded Time Lopez Catheter Removal completed Marielena gagnon [facility] 12/20/2021 15:01:26 Imaging Results None recorded. [...] Encounter Closed Date Diagnosis/Indication Diagnosis SNOMED-CT Code [id number] Sulaiman Romano MD [facility] [address] [place] [place] [id number] 12/20/2021 14:24:43 12/23/2021 03:53:18 Retention of urine [id number] Health Concerns Section Related Observation LastModified by Organization Detai ls LastModified Time None Recorded Concern Status LastModified by Organization Details LastModified Time None Recorded Advance Directives Directive None Recorded Payers Encounter Date Sequence Insurance Name Policy Number Policy Coelho Covered Member ID Coelho Member ID Guarantor Name 12/20/2021 1 [place] [employer] Anish Velazquez [id number] Anish Velazquez 12/20/2021 2 [place] [id number] Anish Velazquez [id number] Anish Velazquez
[2023-09-20 22:13] VITALS: BP 121/74; PULSE 74; RESP 20; TEMP 36.9; O2SAT 99
== END 2023-09-20 22:14 | disposition home or self-care (01) ==
PROVIDERS: Emergency Provider Family Medicine; PCP Family Medicine
DX: M54.81 Occipital neuralgia (principal)
CPT/HCPCS: 99283; 99284

== ENCOUNTER 2023-10-21 07:09 | Emergency (ER) | payer MEDICARE, BC, SELFPAY ==
[2023-10-21 07:21] VITALS: BP 186/97; PULSE 80; RESP 18; TEMP 36.2; O2SAT 100; BMI 24.2
--- NOTE | 2023-10-21 07:23 | ED.GENADULT ---
HPI - General Adult General Time Seen by Provider: 07:23 <Timmy May MD - Last Filed: 10/21/23 08:03> Date Seen: 10/21/23 <Timmy May MD - Last Filed: 10/21/23 08:03> Chief complaint: Shortness of Breath/Dyspnea <Timmy May MD - Last Filed: 10/21/23 08:03> Stated complaint: chest pain,shortness of breath <Timmy May MD - Last Filed: 10/21/23 08:03> Time Seen by Provider: 10/21/23 07:22 <Timmy May MD - Last Filed: 10/21/23 08:03> Source: patient, RN notes reviewed and old records reviewed <Timmy May MD - Last Filed: 10/21/23 08:03> Mode of arrival: ambulatory <Timmy May MD - Last Filed: 10/21/23 08:03> Limitations: no limitations <Timmy May MD - Last Filed: 10/21/23 08:03> History of Present Illness HPI narrative: 83-year-old male who comes in with shortness of breath and chest pain. Patient has a history of carotid stenosis, anxiety, NSTEMI. Patient notes shortness of breath for about the last 4 hours. Denies cough, chest pain, nausea, vomiting, nasal congestion, fevers. Notes that he gets leg swelling when he exercises but that is unchanged from usual. <Timmy May MD - Last Filed: 10/21/23 08:03> Related Data Home medications: Home Medications Medication Instructions Recorded Confirmed carvedilol 12.5 mg tablet 6.25 mg PO BID 03/13/22 09/14/23 clonidine HCl 0.1 mg tablet 0.1 mg PO Q12H PRN 03/13/22 09/14/23 clopidogrel 75 mg tablet 75 mg PO DAILY 03/13/22 09/14/23 pramipexole 0.5 mg tablet 0.5 mg PO HS 03/13/22 09/14/23 atorvastatin 80 mg tablet 80 mg PO HS 05/29/22 09/14/23 calcium carb-magnesium carb 400 2 tab PO HS 12/25/22 04/11/24 mg-200 mg tablet nitroglycerin 0.4 mg sublingual 0.4 mg sublingual Q5M PRN chest 05/29/22 09/14/23 tablet pain omeprazole 40 mg capsule,delayed 40 mg PO DAILY 05/29/22 09/14/23 release quetiapine 25 mg tablet 25 mg PO HS 05/29/22 09/14/23 sodium chloride 1,000 mg soluble 500 mg PO BID 05/29/22 09/14/23 tablet magnesium oxide 400 mg (241.3 mg 400 mg PO DAILY 09/12/23 09/14/23 magnesium) tablet melatonin 3 mg capsule 3 mg PO DAILY 09/12/23 09/14/23 multivitamin 1 tab PO DAILY 09/12/23 09/14/23 Previous Rx's Medication Instructions Recorded potassium chloride 10 mEq 20 meq (2 x 10 mEq) PO BIDWM #60 06/01/22 capsule,extended release caps torsemide 20 mg tablet 20 mg PO DAILY@0800 #30 tabs 06/01/22 hydrocodone 5 mg-acetaminophen 325 1 tab PO Q6H PRN pain #10 tabs 09/14/23 mg tablet sennosides 8.6 mg capsule (senna) 8.6 mg PO DAILY PRN constipation 09/14/23 #90 caps <Timmy May MD - Last Filed: 10/21/23 08:03> Allergies/adverse reactions: Allergies Allergy/AdvReac Type Severity Reaction Status Date / Time amitriptyline [From Elavil] Allergy Verified 09/20/23 20:07 amlodipine Allergy low Verified 09/20/23 20:07 pressures ciprofloxacin Allergy severe Verified 09/20/23 20:07 hives citalopram [From Celexa] Allergy Diarrhea Verified 09/20/23 20:07 erythromycin base Allergy Verified 09/20/23 20:07 escitalopram [From Lexapro] Allergy Depression Verified 09/20/23 20:07 ezetimibe [From Zetia] Allergy Nausea Verified 09/20/23 20:07 hydrochlorothiazide Allergy cramps Verified 09/20/23 20:07 lactose Allergy GI upset Verified 09/20/23 20:07 Penicillins Allergy Hives Verified 09/20/23 20:07 rosuvastatin [From Crestor] Allergy Rash Verified 09/20/23 20:07 sulindac Allergy sedation Verified 09/20/23 20:07 co Q10 Allergy myalgia Uncoded 09/12/23 09:20 <Timmy May MD - Last Filed: 10/21/23 08:03> [facility] Medical History: Medical History 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 - Poisoning by other antidysrhythmic drugs, accidental (unintentional), initial encounter (ICD-10) Inguinal hernia of left side without obstruction or gangrene ?K40.90 - Unilateral inguinal hernia, without obstruction or gangrene, not specified as recurrent (ICD-10) BPH (benign prostatic hyperplasia) ?N40.0 - Benign prostatic hyperplasia without lower urinary tract symptoms (ICD-10) Chronic hyponatremia ?E87.1 - Hypo-osmolality and hyponatremia (ICD-10) History of hallucinations ?Z87.898 - Personal history of other specified conditions (ICD-10) GERD (gastroesophageal reflux disease) ?K21.9 - Gastro-esophageal reflux disease without esophagitis (ICD-10) Critical limb ischemia with history of revascularization of same extremity ?I70.229 - Atherosclerosis of [place] arteries of extremities with rest pain, unspecified extremity (ICD-10) ?Z98.890 - Other specified postprocedural states (ICD-10) History of Mobitz type II atrioventricular block ?Z86.79 - Personal history of other diseases of the circulatory system (ICD-10) Non-STEMI (non-ST elevated myocardial infarction) ?I21.4 - Non-ST elevation (NSTEMI) myocardial infarction (ICD-10) Peripheral artery disease ?I73.9 - Peripheral vascular disease, unspecified (ICD-10) Peripheral neuropathy ?G62.9 - Polyneuropathy, unspecified (ICD-10) Coronary artery disease ?I25.10 - Atherosclerotic heart disease of [place] coronary artery without angina pectoris (ICD-10) Lactose intolerance ?E73.9 - Lactose intolerance, unspecified (ICD-10) Mixed hyperlipidemia ?E78.2 - Mixed hyperlipidemia (ICD-10) Carotid artery stenosis ?I65.29 - Occlusion and stenosis of unspecified carotid artery (ICD-10) Chronic kidney disease ?N18.9 - Chronic kidney disease, unspecified (ICD-10) Generalized anxiety disorder ?F41.1 - Generalized anxiety disorder (ICD-10) RLS (restless legs syndrome) ?G25.81 - Restless legs syndrome (ICD-10) <Timmy May MD - Last Filed: 10/21/23 08:03> Surgical History: Surgical History S/P TURP ?Z90.79 - Acquired absence of other genital organ(s) (ICD-10) S/P rotator cuff repair ?Z98.890 - Other specified postprocedural states (ICD-10) S/P placement of cardiac pacemaker ?Z95.0 - Presence of cardiac pacemaker (ICD-10) History of total hip replacement ?Z96.649 - Presence of unspecified artificial hip joint (ICD-10) History of CEA (carotid endarterectomy) ?Z98.890 - Other specified postprocedural states (ICD-10) S/P femoral-popliteal bypass surgery ?Z95.828 - Presence of other vascular implants and grafts (ICD-10) S/P coronary artery stent placement ?Z95.5 - Presence of coronary angioplasty implant and graft (ICD-10) History of laparoscopic cholecystectomy ?Z90.49 - Acquired absence of other specified parts of digestive tract (ICD-10) S/P CABG x 3 ?Z95.1 - Presence of aortocoronary bypass graft (ICD-10) History of coronary angioplasty ?Z98.61 - Coronary angioplasty status (ICD-10) <Timmy May MD - Last Filed: 10/21/23 08:03> Social History: Social History Narrative: Lives in [place]. Independent. 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 Previous smoker. Quit date 1988. No alcohol use. Retired from [employer]. . Five adult children. Highest level of school completed/degree received: 12th grade, no diploma Smoking Status: Former smoker How often do you have a drink containing alcohol: never AUDIT-C Alcohol total score: 0 Non-prescribed substance use: denies use Caffeine: Yes service: No <Timmy May MD - Last Filed: 10/21/23 08:03> Exam Narrative: Exam Narrative: General: Well-developed and well-nourished, no acute distress Head: Atraumatic and normocephalic Eyes: Pupils are equal reactive, extraocular motions intact, conjunctiva clear ENT: External nose and ears are normal, posterior pharynx without erythema or exudate Neck: No midline cervical tenderness, full spontaneous range of motion the neck, trachea midline, no adenopathy Heart: Regular rate and rhythm no murmurs or thrills Lungs: Clear to auscultation bilaterally without wheezes or crackles Abdomen: Soft, nontender, nondistended with active bowel sounds Musculoskeletal: No tenderness, deformity, or edema Neurologic: Awake, alert, and oriented x3, no gross focal neurologic deficits, cranial nerves intact as tested Psych: Mood and affect are appropriate Skin: No rashes <Timmy May MD - Last Filed: 10/21/23 08:03> Const: Vital Signs, click to edit/add: Vital Signs - 24 hr 10/21/23 07:21 10/21/23 09:08 Temperature 97.2 F L Pulse Rate 98 Pulse Rate [Right Pulse Oximeter] 80 Respiratory Rate 18 Blood Pressure [Ri ght Upper Arm] 186/97 H Pulse Oximetry 100 96 Oxygen Delivery Me thod Room Air <Timmy May MD - Last Filed: 10/21/23 08:03> Vital Signs, click to edit/add: Vital Signs - 24 hr 10/21/23 07:21 10/21/23 09:08 Temperature 97.2 F L Pulse Rate 98 Pulse Rate [Right Pulse Oximeter] 80 Respiratory Rate 18 Blood Pressure [Ri ght Upper Arm] 186/97 H Pulse Oximetry 100 96 Oxygen Delivery Me thod Room Air <Trent Rinaldi MD - Last Filed: 10/21/23 09:34> Course Course ED Course: Patient seen and examined, reviewed prior admission from May 2022 which patient was admitted with congestive heart failure, discharged on torsemide and potassium, also possible pneumonia at that time. Patient presents today with shortness of breath for the last couple of hours, no cough. On exam here patient is finally stable with oxygen saturation 100%. Lungs are clear. Labs and chest x-ray are ordered along with nebulizer treatment as patient says he feels like he is not getting much air in or out. <Timmy May MD - Last Filed: 10/21/23 08:03> Reevaluation(s) Time of Reevaluation #1: 08:00 <Timmy May MD - Last Filed: 10/21/23 08:03> Reevaluation #1: Labs ordered and independently interpreted by me with normal CBC. Chest x-ray independently interpreted by me does not demonstrate acute infiltrate or effusion. Remaining labs are pending, sign out to oncoming provider pending results and disposition. <Timmy May MD - Last Filed: 10/21/23 08:03> Vital Signs Vital signs: Initial Vital Signs Temperature 97.2 F L 10/21/23 07:21 Temperature Source Temporal Artery Scan 10/21/23 07:21 Pulse Rate 80 10/21/23 07:21 Respiratory Rate 18 10/21/23 07:21 Blood Pressure 186/97 H 10/21/23 07:21 Blood Pressure Mean 126 H 10/21/23 07:21 Blood Pressure Position Sitting 10/21/23 07:21 Pulse Oximetry 100 10/21/23 07:21 Oxygen Delivery Method Room Air 10/21/23 07:21 Vital Signs Temperature 97.2 F L 10/21/23 07:21 Pulse Rate 80 10/21/23 07:21 Respiratory Rate 18 10/21/23 07:21 Blood Pressure 186/97 H 10/21/23 07:21 Pulse Oximetry 100 10/21/23 07:21 Oxygen Delivery Method Room Air 10/21/23 07:21 Temperature 97.2 F L 10/21/23 07:21 Pulse Rate 98 10/21/23 09:08 Respiratory Rate 18 10/21/23 07:21 Blood Pressure 186/97 H 10/21/23 07:21 Pulse Oximetry 96 10/21/23 09:08 Oxygen Delivery Method Room Air 10/21/23 07:21 <Timmy May MD - Last Filed: 10/21/23 08:03> Initial Vital Signs Temperature 97.2 F L 10/21/23 07:21 Temperature Source Temporal Artery Scan 10/21/23 07:21 Pulse Rate 80 10/21/23 07:21 Respiratory Rate 18 10/21/23 07:21 Blood Pressure 186/97 H 10/21/23 07:21 Blood Pressure Mean 126 H 10/21/23 07:21 Blood Pressure Position Sitting 10/21/23 07:21 Pulse Oximetry 100 10/21/23 07:21 Oxygen Delivery Method Room Air 10/21/23 07:21 Vital Signs Temperature 97.2 F L 10/21/23 07:21 Pulse Rate 80 10/21/23 07:21 Respiratory Rate 18 10/21/23 07:21 Blood Pressure 186/97 H 10/21/23 07:21 Pulse Oximetry 100 10/21/23 07:21 Oxygen Delivery Method Room Air 10/21/23 07:21 Temperature 97.2 F L 10/21/23 07:21 Pulse Rate 98 10/21/23 09:08 Respiratory Rate 18 10/21/23 07:21 Blood Pressure 186/97 H 10/21/23 07:21 Pulse Oximetry 96 10/21/23 09:08 Oxygen Delivery Method Room Air 10/21/23 07:21 <Trent Rinaldi MD - Last Filed: 10/21/23 09:34> Medications Administered Medications: Discontinued Medications Generic Name Dose Route Start Last Admin Trade Name Freq PRN Reason Stop Dose Admin Albuterol/Ipratropium 1 neb 10/21/23 07:29 10/21/23 08:13 Iprat-Albut 0.5-2.5 Mg/3 Ml [facility] 10/21/23 07:30 1 neb ONCE ONE Administration <Timmy May MD - Last Filed: 10/21/23 08:03> Discontinued Medications Generic Name Dose Route Start Last Admin Trade Name Freq PRN Reason Stop Dose Admin Albuterol/Ipratropium 1 neb 10/21/23 07:29 10/21/23 08:13 Iprat-Albut 0.5-2.5 Mg/3 Ml [facility] 10/21/23 07:30 1 neb ONCE ONE Administration <Trent Rinaldi MD - Last Filed: 10/21/23 09:34> Medical Decision Making MDM Narrative Medical decision making narrative: This patient comes in reporting some shortness of breath upon awakening that he attributes to phlegm that was clogged in his throat. After arrival here he was able to cough some of this up and felt better. He did receive a nebulizer treatment. X-ray and lab results returned with reassuring findings. He is not showing any sign of infection or heart failure. The patient did receive an IV dose of dexamethasone and I recommended using anti histamine and or acid reducers for symptomatic relief going forward. It seems that he awakes with extra fluid in his upper airway that could be from nasal drainage or from reflux symptoms. <Trent Rinaldi MD - Last Filed: 10/21/23 09:34> Lab Data Labs: Lab Results 10/21/23 10/21/23 Range/Units 07:30 07:45 WBC 5.67 (4.50-11.00) K/uL RBC 4.45 (4.30-5.90) m/uL Hgb 13.6 (13.5-17.5) gm/dL Hct 40.9 (37.0-53.0) % MCV 92 (80-100) fL MCH 31 (26-34) pg MCHC 33 (32-36) gm/dL RDW Coeff of [place] 12.6 (11.5-15.5) % Plt Count 167 (140-440) K/uL Neut % (Auto) 53.5 (42.0-72.0) % Lymph % (Auto) 31.7 (20-44) % [place] % (Auto) 9.3 (0.0-11.0) % Eos % (Auto) 4.8 (0.0-7.0) % Baso % (Auto) 0.5 (0.0-3.0) % Neut # (Auto) 3.03 (1.7-7.0) K/uL Lymph # (Auto) 1.80 (0.90-2.90) K/uL [place] # (Auto) 0.50 (0.00-0.90) K/UL Eos # (Auto) 0.27 (0.00-0.50) K/uL Baso # (Auto) 0.03 (0.00-0.30) K/uL Abs Immat Gran (auto) 0.01 (0.00-0.30) K/uL Imm/Tot Granulo (auto) 0.2 % Sodium 134 L (135-149) mmol/L Potassium 3.8 (3.6-5.1) mmol/L Chloride 100 (96-114) mmol/L Carbon Dioxide 30 (20-32) mmol/L Anion Gap 4 L (7-15) mEq/L BUN 19 (7-30) mg/dL Creatinine 1.1 (0.5-1.5) mg/dL Estimated Creat Clear 46.72 Estimated GFR 67 ml/min Glucose 114 (60-115) mg/dL Calcium 9.3 (8.4-10.6) mg/dL Magnesium 2.1 (1.5-2.6) mg/dL NT-Pro-B Natriuret Pep 1950 pg/mL POC Troponin I 0.01 (0.01-0.04) ng/ml <Timmy Mya MD - Last Filed: 10/21/23 08:03> Lab Results 10/21/23 10/21/23 Range/Units 07:30 07:45 WBC 5.67 (4.50-11.00) K/uL RBC 4.45 (4.30-5.90) m/uL Hgb 13.6 (13.5-17.5) gm/dL Hct 40.9 (37.0-53.0) % MCV 92 (80-100) fL MCH 31 (26-34) pg MCHC 33 (32-36) gm/dL RDW Coeff of [place] 12.6 (11.5-15.5) % Plt Count 167 (140-440) K/uL Neut % (Auto) 53.5 (42.0-72.0) % Lymph % (Auto) 31.7 (20-44) % [place] % (Auto) 9.3 (0.0-11.0) % Eos % (Auto) 4.8 (0.0-7.0) % Baso % (Auto) 0.5 (0.0-3.0) % Neut # (Auto) 3.03 (1.7-7.0) K/uL Lymph # (Auto) 1.80 (0.90-2.90) K/uL [place] # (Auto) 0.50 (0.00-0.90) K/UL Eos # (Auto) 0.27 (0.00-0.50) K/uL Baso # (Auto) 0.03 (0.00-0.30) K/uL Abs Immat Gran (auto) 0.01 (0.00-0.30) K/uL Imm/Tot Granulo (auto) 0.2 % Sodium 134 L (135-149) mmol/L Potassium 3.8 (3.6-5.1) mmol/L Chloride 100 (96-114) mmol/L Carbon Dioxide 30 (20-32) mmol/L Anion Gap 4 L (7-15) mEq/L BUN 19 (7-30) mg/dL Creatinine 1.1 (0.5-1.5) mg/dL Estimated Creat Clear 46.72 Estimated GFR 67 ml/min Glucose 114 (60-115) mg/dL Calcium 9.3 (8.4-10.6) mg/dL Magnesium 2.1 (1.5-2.6) mg/dL NT-Pro-B Natriuret Pep 1950 pg/mL POC Troponin I 0.01 (0.01-0.04) ng/ml <Trent Rinaldi MD - Last Filed: 10/21/23 09:34> ECG Data Attestation: I personally reviewed and interpreted this ECG as follows: <Timmy May MD - Last Filed: 10/21/23 08:03> Prior ECG tracings: available for review <Timmy May MD - Last Filed: 10/21/23 08:03> Interpretation: Independently interpreted by me performed at 7:36 a.m. demonstrates paced rhythm with underlying atrial flutter, rate 80, QTC 532, no acute ischemic changes, right axis deviation. Compared to prior May 2022, paced rhythm has replaced sinus rhythm, atrial flutter is new <Timmy May MD - Last Filed: 10/21/23 08:03> Discharge Plan Discharge Clinical Impression: Acute dyspnea, Pacemaker, Atrial flutter <Timmy May MD - Last Filed: 10/21/23 08:03> Patient Disposition: Home, Self-Care <Timmy May MD - Last Filed: 10/21/23 08:03> Condition: Improved <Timmy May MD - Last Filed: 10/21/23 08:03> Additional Instructions: Continue current plans. Consider using an antihistamine such as Erin, Claritin, or Zyrtec as directed. Also consider using an acid receivables specialist such as Prilosec or Nexium. Follow up with MD browning if worsening. <Timmy May MD - Last Filed: 10/21/23 08:03> Prescriptions: No Action clonidine HCl 0.1 mg tablet 0.1 mg PO Q12H PRN Rx Instructions: for hypertensive urgency, 170/90 or greater carvedilol 12.5 mg tablet 6.25 mg PO BID clopidogrel 75 mg tablet 75 mg PO DAILY pramipexole 0.5 mg tablet 0.5 mg PO HS atorvastatin 80 mg tablet 80 mg PO HS nitroglycerin 0.4 mg tablet, sublingual 0.4 mg sublingual Q5M PRN (Reason: chest pain) omeprazole 40 mg capsule,delayed release(DR/EC) 40 mg PO DAILY quetiapine 25 mg tablet 25 mg PO HS calcium carb-magnesium carb 400-200 mg tablet 2 tab PO HS sodium chloride 1,000 mg tablet,soluble 500 mg PO BID potassium chloride 10 mEq Capsule, Extended Release 20 meq PO BIDWM Qty: 60 0RF torsemide 20 mg Tablet 20 mg PO DAILY@0800 Qty: 30 0RF magnesium oxide 400 mg (241.3 mg magnesium) tablet 400 mg PO DAILY melatonin 3 mg capsule 3 mg PO DAILY multivitamin Tablet 1 tab PO DAILY hydrocodone-acetaminophen 5-325 mg tablet 1 tab PO Q6H PRN (Reason: pain) Qty: 10 0RF senna 8.6 mg capsule 8.6 mg PO DAILY PRN (Reason: constipation) Qty: 90 0RF <Timmy May MD - Last Filed: 10/21/23 08:03> Follow Up/Referrals: Monico Modi MD [Primary Care Provider] - <Timmy May MD - Last Filed: 10/21/23 08:03> Stand Alone Forms: MyHealth Info Instructions <Timmy May MD - Last Filed: 10/21/23 08:03>
--- NOTE | 2023-10-21 07:29 | XR_ITS ---
Patient: ALY COUGHLIN Facility:?[facility] Patient ID:?[id number] Site Patient ID:?[id number] Site :?1940 Study:?XRay-Chest 2 VIEW-10/21/2023 8:01:03 AM Ordering Physician:?DR RON Final Report: INDICATION: Shortness of breath. TECHNIQUE: PA and lateral chest. FINDINGS: Lungs are clear. Normal heart size and pulmonary vascularity. No pleural effusion. No pneumothorax. Sternotomy. Pacemaker. Right upper quadrant surgical clips. IMPRESSION: No acute chest findings. Dictated by Troy Gale MD @ 10/21/2023 8:14:59 AM Signed by:?Troy Gale MD @10/21/2023 8:14:59 AM (Electronic Signature)
--- OUTSIDE RECORDS SUMMARY | 2023-10-21 07:40 | XMS_ITS | Referral Summary ---
Author Name Unknown Organization [facility] Address [address] [place] [address] Care Team Providers Care Welt Maker Name Role Phone Elsewhere, Pcp Primary Care Provider Unavailabl e Source Comments Patient records contain information from all sites at [facility]. For routine questions regarding patient records, call [phone] during business hours, M-F 8:00 AM - 5:00 PM Central Time. Record requests for emergency care only can be directed to [phone] at any time.[facility] Allergies Active Allergy Reactions Criticality Noted Date [...] popliteal bypass left leg 01/11/[address] [facility] Clopidogrel lifelong, taking aspirin and statin [...] Laura, & RCA and endarectomy to RCA RI (myocardial infarction) (HC) 09/2006 & 2003 Small Non Q-Wave 2006, ? ? NSTEMI (non-ST elevated myocardial infarction) Taking statin and aspirin. Continues on Plavix. Has p.r.n. nitroglycerin sublingual Taking amiodarone for what appears to be some sort of ventricular arrhythmia history Pacemaker Cardiac Status Post 01/30/2022 Overview: PACEMAKER PLACEMENT 02/18/2020 dual chamber PPM Last Assessment & Plan: Follows with [place] [facility]. Carotid Artery Surgery Status Post 01/30/2022 Overview: [...] on file Medical Devices Implanted Type Area Dishing Machine Operator Device Identifier Shelf Expiration Date Model / Serial / Lot Stent Icast Covered [id number] - [id number] [id number] Implanted:Qty: 1 on 10/04/2013 Respiratory Stent Other/Legacy - See Implant Description Atrium Description:Device Manufactu rer - Atrium [employer]. Body Location - Other. Vascular. Device Status Text - [id number]. Stent Protege Everflex 8 X 20 X 120 - Renae [id number] Implanted:Qty: 1 on 10/04/2013 Vascular Graft Other/Legacy - See Implant Description ev3 Description:Device Manufactu rer - EV3. Body Location - Other. Vascular. Device Status Text - [id number]. Care Teams Welt Maker Relationship Specialty Start Date End Date Elsewhere, Pcp PCP - General Internal Medicine 02/23/22
--- OUTSIDE RECORDS SUMMARY | 2023-10-21 07:40 | XMS_ITS | Clinical Summary ---
Author Name Unknown Organization [facility] Address [address] [place] [address] Care Team Providers Care Senior Service Technician Name Role Phone Elsewhere, Pcp Primary Care Provider Unavailabl e Source Comments Patient records contain information from all sites at [facility]. For routine questions regarding patient records, call [phone] during business hours, M-F 8:00 AM - 5:00 PM Central Time. Record requests for emergency care only can be directed to [phone] at any time.[facility] Allergies Active Allergy Reactions Criticality Noted [...] Femoral popliteal bypass left leg 01/11/2022 at [facility] Clopidogrel lifelong, taking aspirin and statin Last [...] PPM Last Assessment & Plan: Follows with [place] [facility] [place]. Carotid Artery Surgery Status Post 01/30/2022 Overview: [...] 2023 04/27/2022, 12/10/2021, 07/14/2021, Additional history exists Fall Risk Screen (Annual) 06/05/2023 DTaP,Tdap,and Td Vaccines (2 - Td or Tdap) 07/07/2024 07/07/2014, 04/26/2006 Zoster Vaccines Completed 04/14/2018, 12/03, 04/24/2007 Pneumococcal vaccine (65+ years) Completed 05/23/2022, 07/07/2014, 05/05/2011, Additional history exists Influenza Vaccine Completed 04/28/2023, , 03/11/2021, Additional history exists Medical Devices Implanted Type Area Health Lead Device Identifier Shelf Expiration Date Model / Serial / Lot Stent Icast Covered [id number] - [id number] [id number] Implanted:Qty: 1 on 10/04/2013 Respiratory Stent Other/Legacy - See Implant Description Atrium Description:Device Manufactu rer - [employer]. Body Location - Other. Vascular. Device Status Text - [id number]. Stent Protege Everflex 8 X 20 X 120 - Renae [id number] Implanted:Qty: 1 on 10/04/2013 Vascular Graft Other/Legacy - See Implant Description ev3 Description:Device Manufactu rer - EV3. Body Location - Other. Vascular. Device Status Text - [id number]. Care Teams Senior Service Technician Relationship Specialty Start Date End Date Elsewhere, Pcp PCP - General Internal Medicine 02/23/22
--- OUTSIDE RECORDS SUMMARY | 2023-10-21 07:40 | XMS_ITS | Continuity of Care Document ---
Author Name Unknown Organization [facility] Address [address] [address] [place] [address] Phone Care Team Providers Care Production Miner Name Role Phone Renu QUIJANO, Shari Unavailable Unavailab le Advance Directives Directive Yes / No Effective Date File Name No Information Encounters Encounter Description Practice Location Reason(s) For Visit Diagnoses Date Provider Providers Copied on Encounter [facility], [address] [address], [place], [place], [id number], [place] tel:[phone] [facility] No Information Sep-2 0-200 5 Renu QUIJANO Shari. [address], [place], [place], [id number], [place]. tel:[phone] Referring Provider: Herrera Dorman MD L, [address], [place], [address]. tel:[phone] Family History Family Member Type Diagnosis Age At Onset No Information Payers Payer name Insurance type Covered republican ID Authoriza tion(s) Medicare [facility] MB [id number] Social History Type Description Quantity Date Captured [...]
--- OUTSIDE RECORDS SUMMARY | 2023-10-21 07:40 | XMS_ITS | Data Portability ---
Author Name Unknown Address [address] [place] [address] Phone [phone] Organization [facility], [facility] Address [address] [place] [address] Care Team Providers Care Check Examiner Name Role Phone CONNOR MIKE Primary Care [...] By Organization Details Last Modified Time 12/20/2021 [id number] Needs to follow up with LEVY [email or web address] Not available 12/20/2021 15:03:05 Reason for Referral None Reported. Procedures Surgical History Date Name Laterality Status Provider Name and Address Organization Details Recorded Time Lopez Catheter Removal completed Marielena gagnon [facility] 12/20/2021 15:01:26 Imaging Results None recorded. [...] Encounter Closed Date Diagnosis/Indication Diagnosis SNOMED-CT Code [id number] Sulaiman Romano MD [facility] [address] [place] [id number] 12/20/2021 14:24:43 12/23/2021 03:53:18 Retention of urine [id number] Health Concerns Section Related Observation LastModified by Organization Detai ls LastModified Time None Recorded Concern Status LastModified by Organization Details LastModified Time None Recorded Advance Directives Directive None Recorded Payers Encounter Date Sequence Insurance Name Policy Number Policy Coelho Covered Member ID Coelho Member ID Guarantor Name 12/20/2021 1 [place] [employer] Anish Velazquez [id number] Anish Velazquez 12/20/2021 2 [place] [id number] Anish Velazquez [id number] Anish Velazquez
--- OUTSIDE RECORDS SUMMARY | 2023-10-21 07:40 | XMS_ITS | Clinical Summary ---
Author Name Unknown Organization [facility] Address [place], [place] [address] Care Team Providers Care Metal Spinner Name Role Phone Yong Siddiqi MD Unavailable [phone] FlyDillan stone MD Unavailable Rowan vailable Monioc Modi MD Primary Care Provider Allergies Active [...] mouth once daily with a meal. Active multivitamins-mineral resources inspector als-lutein (MULTIVITAMIN 50 PLUS) tab tablet Take 1 tablet by mouth once daily in the evening. Active polyethylene glycoL (MIRALAX) 17 gram/dose powderIndications:C onstipation, acute Mix 1 scoop (17 g) in liquid then take by mouth 2 times daily if needed for Constipation. 1 jar 12 12/15/2020 Active omeprazole (PRILOSEC) 40 mg Delayed-Release capsuleIndications: Gastroesophageal reflux disease, unspecified whether esophagitis present Take 1 Capsule (40 mg) by mouth once daily before a meal. 90 Capsule 3 04/28/2023 Active Simethicone 125 mg capsuleIndications: Bloating Take 1 Capsule (125 mg) by mouth 4 times daily if needed for Flatulence. Max dose: 500 mg per 24 hrs 100 Capsule 6 04/28/2023 Active pramipexole (MIRAPEX) 0.5 mg tabletIndications:R LS (restless legs syndrome) Take 1 Tablet (0.5 mg) by mouth at bedtime. 90 Tablet 3 04/28/2023 Active potassium chloride (Klor-Con 10) 10 mEq extended-release tabletIndications:H FrEF (heart failure with reduced ejection fraction) (HC) Take 1 Tablet (10 mEq) by mouth two times daily with meals. 180 Tablet 3 04/28/2023 Active atorvastatin (LIPITOR) 80 mg tabletIndications:H yperlipidemia, unspecified hyperlipidemia type Take 1 Tablet (80 mg) by mouth at bedtime. 90 Tablet 3 04/28/2023 Active magnesium oxide (MAG-OX 400) 400 mg tabletIndications:L ow magnesium level TAKE ONE TABLET (400 MG) BY MOUTH ONCE DAILY IN THE EVENING 90 Tablet 3 04/28/2023 Active cloNIDine HCL (CATAPRES) 0.1 mg tabletIndications:H TN (hypertension) TAKE 1 TABLET BY MOUTH NEEDED FOR BLOOD PRESSURE GREATER THAN 170/90. MAY REPEAT IN 1 HOUR DIRECTED. MAXIMUM DOSE TWO TABLETS IN 24 HOURS. 30 Tablet 04/28/2023 Active melatonin 3 mg tabletIndications:I nsomnia due to medical condition Take 1 Tablet (3 mg) by mouth at bedtime if needed for Sleep. 90 Tablet 2 06/07/2023 Active Additional Information Patient taking differently:3 mg OralBEDTIME, Reported on 08/24/2023 torsemide (DEMADEX) 20 mg tabletIndications:H FrEF (heart failure with reduced ejection fraction) (HC) Take 2 Tablets (40 mg) by mouth once daily. 180 Tablet 1 06/29/2023 Active carvediloL (Coreg) 25 mg tabletIndications:E ssential hypertension,NSVT (nonsustained ventricular tachycardia) (HC) Take 1 Tablet (25 mg) by mouth two times daily. 180 Tablet 3 08/17/2023 Active losartan (COZAAR) 25 mg tabletIndications:L abile hypertension Take 0.5 Tablets (12.5 mg) by mouth once daily. 15 Tablet 11 09/13/2023 Active Sennosides 8.6 mg cap Take 8.6 mg by mouth once daily. 09/14/2023 Active clopidogreL (PLAVIX) 75 mg tabletIndications:N STEMI (non-ST elevated myocardial infarction) (HC),History of coronary angioplasty with insertion of stent TAKE ONE TABLET BY MOUTH ONCE EVERY DAY IN THE MORNING 90 Tablet 3 09/24/2023 Active apixaban (ELIQUIS) 5 mg tabletIndications:A trial flutter, unspecified type (HC) Take 1 Tablet (5 mg) by mouth two times daily. 60 Tablet 11 09/26/2023 Active nitroglycerin (NITROSTAT) 0.4 mg sublingual tabletIndications:C hest pain, unspecified DISSOLVE ONE TABLET UNDER TONGUE EVERY 5 MINUTES NEEDED FOR CHEST PAIN FOR UP TO 3 TIMES, IF NO RELIEF, CALL 911.If patient requesting greater than 25 doses in 30 days, to provider to authorize 25 Tablet 10/02/2023 Active nitroglycerin (NITROSTAT) 0.4 mg sublingual tabletIndications:C hest pain, unspecified DISSOLVE ONE TABLET UNDER TONGUE EVERY 5 MINUTES NEEDED FOR CHEST PAIN FOR UP TO 3 TIMES, IF NO RELIEF, CALL 911 25 Tablet 1 10/23/2021 10/02/19 24 Discontinu ed(Reorder (E-cancel not sent)) apixaban (ELIQUIS) 5 mg tabletIndications:A trial flutter, unspecified type (HC) Take 1 Tablet (5 mg) by mouth two times daily. 60 Tablet 1 09/20/2023 09/26/19 24 Discontinu ed(*Med complete/R egimen complete/L evel of care change) Active Problems Patient Care Coordination No te Formatting of this note migh t be different from the original. HF/Structural/Prevention Research Eligibility Review Date: 06/26/19 Upcoming Visit Location: [facility] [...] right carotid ar simran without cerebral infarction Anemia Resolved Problems Problem Noted Date Diagnosed Date Resolved Date Other ascites 06/14/2022 04/28/2023 Pleural effusion 06/14/2022 04/28/2023 Hypertension 02/25/2020 08/31/2023 Cramps, muscle, general 11/28/2018/12/2020 GERD (gastroesophageal reflux disease) 06/11/2012 05/23/2022 Chest [...] 07/12/2010 03/08/2011 ARTERIOSCLEROTIC HEART DISEASE 03/30/2010 03/30/2010 manager intermediate (current) use of anticoagulants 09/15/2009 03/08/2011 Overview: INR Goal Range: 1.5 - 20 Diarrhea 02/17/2009 03/08/2011 Overview: -with Pletal PVD (peripheral vascular disease) 11/26/2008 03/08/2011 PAD (Peripheral Artery Disea se) with claudication--s/p L iliac stent 98;COMMANDING OFFICER HOMICIDE SQUAD L popliteal -10/28/2008 12/13/2011 Overview: S/p Left common femoral endarterectomy and R SFA stent (11/23/2011) Other dyspnea and respiratory abnormality 03/17/2008 03/08/2011 Dizziness and giddiness 01/22/200808/04 Shortness of breath 01/22/2008 03/08/20 11 Esophageal reflux 07/10/2007 07/26/2012 Overview: EGD 06/2009 benign gastric polyps EGD 06/2013 benign gastric polyps Cor Athrscl-Uns Vessel 10/03 Overview: -prior AK's in 1995, 2000 -CABG 1995 -Multiple PCI with 8 stents, last 03/12 -Myoview in 08/11 with fixed inferior defect, minimal urbano-infarct ischemia, LVEF 60% Pure hypercholesterolemia Unspecified Essential Hypertension 12/13/2011 Other and Unspecified Hyperlipidemia 02/17/2012 Critical limb ischemia of le ft lower extremity 09/26/2023 Encounters Date Type Department Care Team Description 10/04/2023 2:15 PM CDT Office Visit [facility] [address] [place] [address] Savanah Lopez MD Post-op (Open left inguinal hernia repair 09/14/23) 10/04/2023 Travel 10/02/2023 Refill [facility] [address] [place] [address] Monico Modi MD Refill Request (NITROGLYCERIN 0.4 MG SUBL) 09/26/2023 8:50 AM CDT Office Visit [facility] [address] [place] [address] Monico Modi MD ER Follow up ([place] [facility], 09/20/2023, headache and neck pain); Medication Management (Would like printed prescription for Eliquis ) 09/26/2023 Travel 09/24/2023 Refill [facility] [address] [place] [address] Monico Modi MD Refill Request (Clopidogrel) 09/18/2023 1:00 PM CDT Office Visit [facility] [address] [place] [address] Anthony Clark MD Headache (Had LEFT Inguinal Hernia Surgery on 09/14/2023./Having headaches ever since. Back side of head on the RIGHT side. /Sitting / resting helps. /Gets lightheaded with the pain/Received alarm from [employer] - irregular heart rhythm ) 09/18/2023 Orders Only [address] [address] Anthony Clark MD 1 scan: (1-Ord) worksheet 09/18/[address] [address] Anthony Clark MD Device Check (Aflutter) 09/18/2023 Telephone [facility] [address] [facility] [address] [place] [address] Saturnino Peterson, RN Device Check 09/18/2023 Travel 09/18/2023 Nurse Triage [facility] [address] [place] [address] Monico Modi MD Error-please disregard (Unable to reach daughter on callback. ) 09/18/2023 Telephone [facility] [address] [facility] [address] [place] [address] Lawanda Zeng, LIZZ Device Check (Pacemaker Evaluation - Alert for atrial arrhythmia) 09/14/2023 8:00 AM CDT Office Visit [facility] [address] [place] [address] Savanah Lopez MD 09/14/2023 Orders Only [facility] Scanner 1 scan: (1-Ord) [place], OPEN LT INGUINAL HERNIA REPAIR W/REPLACEMENT OF MESH, 09/14/2023 09/08/2023 1:40 PM CDT Preop Visit [facility] [address] [place] [address] Monico Modi MD Preoperative Exam (DOS: 09/14/2023, hernia repair, Dr. Lopez, [facility]) 09/08/2023 Travel 09/06/2023 4:15 PM CDT Office Visit [facility] [address] [place] [address] Savanah Lopez MD Consult (Left inguinal hernia-getting worse) 09/06/2023 Travel 09/04/2023 Travel 08/31/2023 4:35 PM CDT Office Visit [facility] [address] [place] [address] Monico Modi MD Hospital F/U ([facility]W, 08/24/2023 - 08/25/2023, pacemaker replaced) 08/31/2023 Travel 08/24/2023 1:14 PM CDT Anesthesia Event [facility] [address] [place] [address] MilshHuey perez MD Anderson, Rebecca Faye, MD 08/24/2023 10:52 AM CDT - 08/25/2023 11:22 AM CDT Hospital Encounter [facility] [address] [place] [address] Shant Goodwin MD Milshteyn, Mark L, MD Coronary artery disease involving [place] coronary artery of [place] heart without angina pectoris (Primary Dx); NSTEMI (non-ST elevated myocardial infarction) (HC); History of coronary angioplasty with insertion of stent; Status post placement of cardiac pacemaker; HFrEF (heart failure with reduced ejection fraction) (HC) Discharge Disposition: Home Self Care 08/24/2023 Travel 08/17/2023 1:00 PM CDT Office Visit [facility] [address] [facility] [address] [place] [address] Chaz Bell MD CV Electrophysiology Est (per Dr. Bell ok'd to take telehrt spot to discuss BIV PPM with echo prior//PCP: Monico Modi MD) 08/17/2023 Travel 08/07/2023 9:00 AM CIVIL ENGINEERING SPECIALIST Ancillary Procedure [facility] [address] [place] [address] 08/07/2023 Travel from Last 3 Months Immunizations Name Administration Dates Next Due AMB Influenza, IIV3 (Age >=3 years)(Flu Clinic Only) 02/28/2013 COVID-19 vaccine (Moderna 100mcg/0.5mL) PF, MDV 07/30/2020 COVID-19 vaccine (SIRS-Lab-Bio NTech 30mcg/0.3mL) 12YO+ BIVALENT PF, MDV 04/27/2022 [...] Sign Reading Time Taken Comments Blood Pressure 185/77 10/04/2023 2:33 PM CDT Pulse 68 10/04/2023 2:33 PM CDT Temperature 36.6 ??C (97.9 ??F) 08/25/2023 7 :40 AM CDT Respiratory Rate 18 08/25/2023 7:40 AM CDT Oxygen Saturation 100% 10/04/2023 2:1 2 PM CDT Inhaled Oxygen Concentration - - Weight 71.1 kg (156 lb 11.2 oz) 024 2:12 PM CDT with shoes Height 167 cm (5' 5.75) 09/08/2023 1:3 3 PM CDT Body Mass Index 25.49 09/08/2023 1:33 PM CDT Plan of Treatment Upcoming Encounters Date Type Department Care Team (Late st Contact Info) Description 11/20/2023 Cardiac Device Check [facility] [phone] 12/12/2023 2:30 PM CDT Cardiac Device Check [facility] [address] [place] [address] Health Maintenance Due Date Last Done Comments [...] Rodgers MD Medical Devices Implanted Type Area Paper Machine Operator Device Identifier Shelf Expiration Date Model / Serial / Lot Patch Vasc 0.8x8cm Biological Peripatch - [id number] Implanted:Qty: 1 on 11/23/2011 by Annemarie King MD at [facility] Left: Femoral Artery [employer] 03/24/2014 0.8P8# / / [id number] [place]rbano-Guard [id number] - [id number] Implanted:Qty: 1 on 05/24/2012 by Annemarie King MD at [facility] Right: Femoral Artery [employer] 11/25/2015 [id number] / / [id number] Patch Vasc 0.8x8cm Xenosure Biological Pericardial - [id number] Implanted:Qty: 1 on 08/12/2016 by Zen Morales MD at [facility] Right: Carotid Artery [employer] 03/02/2022 0.8P8# / / [id number] Procedures Procedure Name Priority Date/Time Associated Diagnosis Comments LA READING EKG - NO CHARGE, COMP ONLY [...] LIMITED WO CONTRAST Routine 08/07/2023 9:09 AM CIVIL ENGINEERING SPECIALIST PVC (premature ventricular contraction) EXTENDED HOLTER Routine 08/02/2023 12:00 AM CIVIL ENGINEERING SPECIALIST PVC (premature ventricular contraction) from Last 3 Months Results * EKG 12 LEAD (09/18/2023 2:41 PM CDT) Only the most recent of4 resultswithin the time period is included. Anthony Clark MD EKG ORD * LA READING EKG - NO CHARGE, COMP ONLY (09/18/2023 2:41 PM CDT) Anthony Clark MD PB - PROVIDER CHARLEY LAWSON * SCAN-OPERATIVE/PROCEDURE REPORT (09/14/2023 12:00 AM CDT) Scanner OTHER * PACER JESUS??DUAL CHAMBER WO REPROG [[id number]] (08/25/2023 9:04 AM CDT) Narrative Chaz Bell MD - 08/25/2023 9:04 AM CDT Costa Perla RN ? 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 Implanting MD: Chaz Bell MD DEVICE DATA Paper Machine Operator Medtronic: Model [id number] Percepta Quad METAL DRESSER-p MRI ?? Implant Date 08/24/2023 LEAD DATA Atrial Lead: Paper Machine Operator Medtronic: Model [id number] ??59 cm Implant Date 02/18/2020 RV Lead: Paper Machine Operator [employer]: Model 5076 58 cm Implant Date 02/18/2020 LV Lead: Paper Machine Operator Medtronic: Model [id number] ??78 cm Implant Date 08/24/23 Advisory: none Location of evaluation: [facility], [facility] Reason for evaluation: Routine, first day post [...] - since 08/24/23 Atrial paced: 18.3%, Total METAL DRESSER paced: 96.5% (BiV: 99.9%, LV: 0.0%) + [...] will follow up with pacemaker clinic in [place] on 12/12/2023, appointment given. ??Pt verbalized understanding of the instructions that were given and written information was provided. ??Pt's monitor was paired to the new device. Follow up: 3 months in [place] on 12/12/23. Routine follow up: 4 month carelink with [facility]. Signed By: ??Costa Perla RN, ??CCDS ?? [...] @ Aug 25 2023 ??7:26AM (Electronically Signed) [email or web address] Narrative 08/25/2023 7:26 AM CDT For Patients: [...] @ Aug 25 2023 7:26AM (Electronically Signed) [email or web address] Chaz Bell MD GENERAL IMAGIN G * [...] axillary vein x1. Over this wire, a 9-Portuguese SafeSheath wasplaced through which a Wholey wire [...] complications. Results are automatically released to your [employer] accountonce available, in compliance with federal regulations. This means thatyou may see your results before your provider has had a chance to reviewthem. Please allow 2-3 business days for your provider to comment on theresults. MD LUCIA NEELY/ADAM/MARJAN VJID: [id number] TJID: [id number] Shant Goodwin MD CV IMAGIN G * CBC with Platelets no Differential (08/24/2023 11:38 AM CDT) [facility] Signature WHITE BLOOD COUNT 6.5 4.5 - 11.0 thou/cu mm 08/24/2023 11:59 AM CDT [facility] RED BLOOD COUNT 4.34 4.30 - 5.90 mil/cu mm 08/24/2023 11:59 AM CDT [facility] HEMOGLOBIN 13.5 13.5 - 17.5 g/dL 08/24/2023 11:59 AM CDT [facility] HEMATOCRIT 39.4 37.0 - 53.0 % 08/24/2023 11:59 AM CDT [facility] MCV 91 80 - 100 fL 08/24/2023 11:59 AM CDT [facility] MCH 31.1 26.0 - 34.0 pg 08/24/2023 11:59 AM CDT [facility] MCHC 34.3 32.0 - 36.0 g/dL 08/24/2023 11:59 AM CDT [facility] RDW 13.0 11.5 - 15.5 % 08/24/2023 11:59 AM CDT [facility] PLATELET COUNT 195 140 - 440 thou/cu mm 08/24/2023 11:59 AM CDT [facility] MPV 9.3 6.5 - 11.0 fL 08/24/2023 11:59 AM CDT [facility] NRBC 0.0 % 08/24/2023 11:59 AM CDT [facility] ABS NRBC 0.0 thou /cu mm 08/24/2023 11:59 AM CDT [facility] Blood BLOOD SPECIMEN / Unknown IV Start / Unknown 08/24/2023 11:38 AM CDT 08/24/2023 11:44 AM CDT Shant Goodwin MD HEMATOLOG Y [facility] [address] [place] [address], * (ABNORMAL) Basic Metabolic Panel (08/24/2023 11:38 AM CDT) SODIUM 133(L) 136 - 145 mmol/L 08/24/2023 12:18 PM CDT [facility] POTASSIUM 4.6 3.5 - 5.1 mmol/L 08/24/2023 12:18 PM CDT [facility] CHLORIDE 97(L) 98 - 107 mmol/L 08/24/2023 12:18 PM T [facility] CO2,TOTAL 27 22 - 29 mmol/L 08/24/2023 12:18 PM T [facility] ANION GAP 9 5 - 18 08/24/2023 12:18 PM T [facility] GLUCOSE 108(H) 70 - 99 mg/dL 08/24/2023 12:18 PM T [facility] CALCIUM 9.7 8.8 - 10.2 mg/dL 08/24/2023 12:18 PM T [facility] BUN 17 8 - 23 mg/dL 08/24/2023 12:18 PM T [facility] CREATININE 1.19 0.70 - 1.20 mg/dL 08/24/2023 12:18 PM [facility] BUN/CREAT RATIO 14 10 - 20 12:18 PM T [facility] eGFR 61(L) >90 mL/min/1.7 3m2 08/24/2023 12:18 PM [facility] Comment:As of 2021, eG [...] 11:44 AM CDT Shant Goodwin MD CHEMISTRY [facility] [address] [place] [address], * ECHO TTE LIMITED WO CONTRAST (08/07/2023 9:09 AM CIVIL ENGINEERING SPECIALIST) AORTIC VALVE MEAN PG 11 mmHg EJECTION FRACTION 34 % PEAK TR VELOCITY 3.0 m/s LVEDD 4.6 cm Anatomical Region Laterality Modality Ultrasound 08/07/2023 8:45 AM CIVIL ENGINEERING SPECIALIST Narrative 08/07/2023 9:42 AM CIVIL ENGINEERING SPECIALIST ECHOCARDIOGRAM ANISH COUGHLIN ?Accession#: ?? [id number] : ?1940 83 years Study Date: ?? 08/07/2023 8:45:47 AM Gender: M ? BP: ? 167/89 mmHg Height: 168.00 cm ? BSA: ?1.81 m? ? ? Weight: 71.00 kg ?Tech: ? MSR ?Referring MD: CHAZ BELL Site: ? [facility] Reading Location: Mobile OP Patient Location: [...] . This study was interpreted by an [facility] accredited facility. ??Final ?? Procedure Note Domingo Stark MD - 08/07/2023 ECHOCARDIOGRAM ANISH COUGHLIN : 1940 83 years Study Date: 08/07/2023 8:45:47 AM Gender: M BP: 167/89 mmHg Height: 168.00 cm BSA: 1.81 m? ? ? Weight: 71.00 kg Tech: MARY Referring MD: CHAZ BELL Site: [facility] Reading Location: Mobile OP Patient Location: [...] . This study was interpreted by an [facility] accredited facility. Final Chaz Bell MD ECHO ORD * ZIO PATCH XT - weekly to monthly symptoms. Specifiy duration 3 days, 1 week, or 2 weeks (2:00 AM CIVIL ENGINEERING SPECIALIST) Chaz Bell MD CARDIAC SERVIC ES ORD from Last 3 Months Advance Directives Documents on File Type Date Recorded Patient Family Court Counsellor Expl anation Healthcare Directive 08/04/2009 HEALTH CARE DIRECTIVE, [facility], 08/04/2009 * Full Code (Latest Code [...] 12:54 PM 07/02/2019 6:17 PM Care Teams Metal Spinner Relationship Specialty Start Date End Date Monico Modi MD [address] [place] [address] PCP - General Family Practice 11/10/16 Yong Siddiqi MD [address] [place] [address] [address] Gastroenterology 05/20/11 Dillan Eubanks MD [address] [place] [address] [address] Cardiovascular Disease 05/20/11
--- OUTSIDE RECORDS SUMMARY | 2023-10-21 07:40 | XMS_ITS ---
Author Name Unknown Organization [facility] Address [address] [place] [address] Care Team Providers Care Biodiesel Plant Superintendent Name Role Phone Unavailable Unavailable Unavailable Surgery Details Not on file Complications Check Surgery Details section. Procedure Estimated Blood Loss Check Surgery Details section. Procedure Findings Check Surgery Details section. Procedure Specimens Taken Check Surgery Details section.
[2023-10-21 07:53] LABS: Basophils Absolute Auto 0.03 K/uL (0.00-0.30); Basophils Percent Auto 0.5 % (0.0-3.0); Eosinophils Absolute Auto 0.27 K/uL (0.00-0.50); Eosinophils Percent Auto 4.8 % (0.0-7.0); Hematocrit 40.9 % (37.0-53.0); Hemoglobin* 13.6 gm/dL (13.5-17.5); Immature Granulocytes Abs Auto 0.01 K/uL (0.00-0.30); Immature Granulocytes Pct Auto 0.2 %; Lymphocytes Percent Auto 31.7 % (20-44); Mean Corpuscular HGB Conc 33 gm/dL (32-36); Mean Corpuscular Hemoglobin 31 pg (26-34); Mean Corpuscular Volume 92 fL (80-100); Monocytes Percent Auto 9.3 % (0.0-11.0); Neutrophils Absolute Auto 3.03 K/uL (1.7-7.0); Neutrophils Percent Auto 53.5 % (42.0-72.0); Platelet Count* 167 K/uL (140-440); RDW Coefficient of Variation % 12.6 % (11.5-15.5); Red Blood Count 4.45 m/uL (4.30-5.90); White Blood Count* 5.67 K/uL (4.50-11.00)
[2023-10-21 07:56] LABS: Slide Review Reflex No
[2023-10-21 08:07] LABS: Chloride* 100 mmol/L (96-114); Potassium* 3.8 mmol/L (3.6-5.1); Sodium* 134 mmol/L (135-149)
[2023-10-21 08:10] LABS: Anion Gap 4 mEq/L (7-15); Blood Urea Nitrogen* 19 mg/dL (7-30); Carbon Dioxide* 30 mmol/L (20-32); Creatinine* 1.1 mg/dL (0.5-1.5); Est. Creatinine Clearance* 46.72; Estimated Glomerular Filt Rate 67 ml/min; Glucose* 114 mg/dL (60-115)
[2023-10-21 08:11] LABS: Calcium* 9.3 mg/dL (8.4-10.6); Magnesium* 2.1 mg/dL (1.5-2.6)
[2023-10-21 08:13] LABS: Troponin, Point-of-Care* 0.01 ng/ml (0.01-0.04)
[2023-10-21] MEDS: IPRAT-ALBUT 0.5-2.5 MG/3 ML NEB 1 NEB IH (08:13)
[2023-10-21 08:20] LABS: NT Pro B Type NatriureticPept* 1950 pg/mL
[2023-10-21 09:08] VITALS: PULSE 98; O2SAT 96
[2023-10-21 09:30] VITALS: BP 147/89; PULSE 90; RESP 18; O2SAT 98
== END 2023-10-21 09:57 | disposition home or self-care (01) ==
PROVIDERS: Emergency Provider Family Medicine; PCP Family Medicine
DX: R06.00 Dyspnea, unspecified (principal); I48.92 Unspecified atrial flutter; Z95.0 Presence of cardiac pacemaker
CPT/HCPCS: 36415; 71046; 80048; 83735; 83880; 84484; 85025; 93005; 94640; 96374; 99284; 99285

== ENCOUNTER 2025-02-07 09:04 | Emergency (ER) | payer MEDICARE, BC, SELFPAY ==
--- OUTSIDE RECORDS SUMMARY | 2025-02-07 09:07 | XMS_ITS | Clinical Summary ---
Author Organization [facility] Address [address] [place] [address] Care Team Providers Care Autocad Technician Name Role Phone Yong Siddiqi MD Unavailable [phone] FlyDillan stone MD Unavailable Rowan vailable Monico [...] 12/02/2010 Ezetimibe Nausea And Vomiting 09/09/2011 Medications multivitamins-min erals-lutein (MULTIVITAMIN 50 PLUS) tab tablet Take 1 tablet by mouth once daily in the evening. Active polyethylene glycoL (MIRALAX) 17 gram/dose powderIndications :Constipation, acute Mix 1 scoop (17 g) in liquid then take by mouth 2 times daily if needed for Constipation. 1 jar 12 021 Active Simethicone 125 mg capsuleIndication s:Bloating Take 1 Capsule (125 mg) by mouth 4 times daily if needed for Flatulence. Max dose: 500 mg per 24 hrs 100 Capsule 6 023 Active cloNIDine HCL (CATAPRES) 0.1 mg tabletIndications :HTN (hypertension) TAKE 1 TABLET BY MOUTH NEEDED FOR BLOOD PRESSURE GREATER THAN 170/90. MAY REPEAT IN 1 HOUR DIRECTED. MAXIMUM DOSE TWO TABLETS IN 24 HOURS. 30 Tablet 023 Active Sennosides 8.6 mg cap Take 8.6 mg by mouth once daily. 024 Active nitroglycerin (NITROSTAT) 0.4 mg sublingual tabletIndications :Chest pain, unspecified DISSOLVE ONE TABLET UNDER TONGUE EVERY 5 MINUTES NEEDED FOR CHEST PAIN FOR UP TO 3 TIMES, IF NO RELIEF, CALL 911.If patient requesting greater than 25 doses in 30 days, to provider to authorize 25 Tablet 024 Active hydrocortisone 1 % creamIndications: Encounter for cardioversion procedure Apply topically to affected area(s) 4 times daily if needed (cardioversio n procedure). Active aspirin (ECOTRIN) 81 mg enteric coated tablet Take 1 Tablet (81 mg) by mouth once daily with a meal. Active Catheter miscIndications:R etention of urine, unspecified As directed. 144 Each 024 Active magnesium oxide (MAG-OX 400) 400 mg tabletIndications :Low magnesium level TAKE ONE TABLET (400 MG) BY MOUTH ONCE DAILY IN THE EVENING 90 Tablet 025 Active apixaban (ELIQUIS) 5 mg tabletIndications :Atrial flutter, unspecified type (HC) Take 1 Tablet (5 mg) by mouth two times daily. 180 Tablet 025 Active melatonin 3 mg tabletIndications :Insomnia due to medical condition Take 1 Tablet (3 mg) by mouth at bedtime if needed for Sleep. 90 Tablet 025 Active carvediloL (Coreg) 12.5 mg tabletIndications :Essential hypertension,NSVT (nonsustained ventricular tachycardia) (HC) Take 1 Tablet (12.5 mg) by mouth two times daily. You are due for a follow up with cardiology. Please call [phone] to schedule before more refills can be authorized. 180 Tablet 025 Active carvediloL (Coreg) 6.25 mg tabletIndications :Coronary artery disease involving unga coronary artery of unga heart without angina pectoris Take 1 Tablet (6.25 mg) by mouth once daily. Take in the evening in addition to 12.5 mg tablet of Coreg. You are due for a follow up with cardiology. Please call [phone] to schedule before more refills can be authorized. 90 Tablet 025 Active atorvastatin (LIPITOR) 80 mg tabletIndications :Hyperlipidemia, unspecified hyperlipidemia type Take 1 Tablet (80 mg) by mouth once daily with evening meal. 90 Tablet 1 025 Active omeprazole (PRILOSEC) 40 mg Delayed-Release capsuleIndication s:Gastroesophagea l reflux disease, unspecified whether esophagitis present Take 1 Capsule (40 mg) by mouth once daily before a meal. 90 Capsule 2 025 Active potassium chloride (K-TAB) 10 mEq extended-release tabletIndications :HFrEF (heart failure with reduced ejection fraction) (HC) Take 1 Tablet (10 mEq) by mouth once daily. 90 Tablet 1 025 Active torsemide (DEMADEX) 20 mg tabletIndications :HFrEF (heart failure with reduced ejection fraction) (HC) Take 1 Tablet (20 mg) by mouth once daily. 90 Tablet 1 025 Active pramipexole (MIRAPEX) 0.5 mg tabletIndications :RLS (restless legs syndrome) TAKE ONE TABLET (0.5 MG) BY MOUTH EVERY DAY AT BEDTIME 90 Tablet 1 025 Active potassium chloride (K-TAB) 10 mEq extended-release tabletIndications :HFrEF (heart failure with reduced ejection fraction) (HC) TAKE ONE TABLET (10 MEQ) BY MOUTH TWICE DAILY WITH MEALS 180 Tablet 3 025 2024 Discontinued(R eorder (E-cancel not sent)) atorvastatin (LIPITOR) 80 mg tabletIndications :Hyperlipidemia, unspecified hyperlipidemia type TAKE 1 TABLET (80 MG) BY MOUTH NIGHTLY AT BEDTIME. 90 Tablet 2 07/06/ 025 2024 Discontinued(R eorder (E-cancel not sent)) omeprazole (PRILOSEC) 40 mg Delayed-Release capsuleIndication s:Gastroesophagea l reflux disease, unspecified whether esophagitis present TAKE ONE CAPSULE BY MOUTH ONCE DAILY BEFORE A MEAL 90 Capsule 2 025 2024 Discontinued(R eorder (E-cancel not sent)) torsemide 20 mg tabletIndications :HFrEF (heart failure with reduced ejection fraction) (HC) Take 2 Tablets (40 mg) by mouth once daily. Due for office visit in 01/2025. Call SEGUNDO to schedule care. Further refills to follow next clinic visit. 180 Tablet 025 2024 Discontinued(R eorder (E-cancel not sent)) pramipexole (MIRAPEX) 0.5 mg tabletIndications :RLS (restless legs syndrome) TAKE ONE TABLET (0.5 MG) BY MOUTH EVERY DAY AT BEDTIME 30 Tablet 025 2024 Discontinued Active Problems Patient Care Coordination No te Formatting of this note migh t be different from the original. HF/Structural/Prevention Research Eligibility Review Date: 06/26/19 Upcoming Visit Location: [facility] Age: 79 y.o. Medicare/Medicaid EF: 50 Valve/Imaging: mild AR, mild TR, trace MR Comments: HF: DNQ Structural: No significant valve disease Prevention: DNQ Problem Noted Date Diagnosed Date HFrEF (heart failure with reduced ejection fract ion) 06/14/2024 NSVT (nonsustained ventricular tachycardia) 06/05 Left ventricular dysfunction 08/31/2023 Frequent PVCs 05/23/2022 GERD (gastroesophageal reflux disease) 2 Status post placement of cardiac pacemaker 02/24 AV block, 2nd degree 02/19/2020 Overview (02/19/2020): status post PPM 02/18/2020 Peripheral artery disease (HC) Lifelong Plavix. 06/30/2019 Overview (06/30/2019): s/p Left femoral endarterectomy, R SFA stent 6-20-12, s/p Right femoral endarterectomy, right external iliac stent Left SFA stent 05-24-2012 NSTEMI (non-ST elevated myocardial infarction) 0 06/30/2019 Prediabetes 11/27/2017 Labile blood pressure 03/09/2017 BPH (benign prostatic hypertrophy) with urinary retention 09/14/2015 Pulmonary nodule 06/13/2012 Overview (06/13/2012): Found on CTA June 2012- consider follow up CT chest no contrast in 6 months. ACP (advance care planning) 05/27/2012 Overview (05/27/2012): Patient has identified Health Care Agent(s): Yes [...] Neuralgia 12/13/2011 CAD (coronary artery disease) 10/04/2011 Overview (06/30/2019): - Hx of CABG 1996: REYNA - [...] reflux, unspe cified or without reflux nephropathy Overview (06/30/2019): He voids every 2-4 hours during the day and caths at night. He self-caths 2-4x/day and 3x/night. Stenosis of right carotid ar simran without cerebral infarction Anemia Neurogenic bladder Resolved Problems Problem Noted Date Diagnosed Date Resolved Date Other ascites 06/14/2022 04/28/2023 Pleural effusion 06/14/2022 04/28/2023 Hypertension 02/25/2020 08/31/2023 Cramps, muscle, general 11/28/201808/03 GERD (gastroesophageal reflux disease) 06/11/2012 05/23/2022 Chest pain, unspecified 06/11/2012 06/0 11/2016 Hemoptysis 05/27/2012 06/25/2012 Overview (05/27/2012): CT chest with contrast on 05/30 ~4 cm are of infiltrate/inflammation in the LLL. Small cavity component may be present within this infiltrate. Rest of lungs are clear. No PE Testalgia 05/26/2012 03/14/2014 Biceps rupture, proximal 05/22/2012 Overview (05/22/2012): On both sides, left greater than right. Other secondary hypertension 12/13/2011 02/25/2020 Leg cramps 09/02/2011 12/13/2011 Cramp of both lower extremities 07/28/2011 08/24/2021 Neck pain 11/05/2010 05/24/2012 Chest pain 09/10/2010 05/24/2012 Colon polyp 09/09/2010 05/23/2022 Overview (09/21/2010): Colonoscopy 09/2010 polyp, incomplete study, recommend barium enema- diverticuli, recommend BE in 5 years URI (upper respiratory infection) 07/12/2010 03/08/2011 ARTERIOSCLEROTIC HEART DISEASE 03/30/2010 03/30/2010 [facility] (current) use of anticoagulants 09/15/2009 03/08/2011 Overview (09/15/2009): INR Goal Range: 1.5 - 20 Diarrhea 02/17/2009 03/08/2011 Overview (02/17/2009): -with Pletal PVD (peripheral vascular disease) 11/26/2008 03/08/2011 PAD (Peripheral Artery Disea se) with claudication--s/p L iliac stent 98;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 L popliteal 02-17-09 10/28/2008 12/13/2011 Overview (11/24/2011): S/p Left common femoral endarterectomy and R SFA stent (11/23/2011) Other dyspnea and respiratory abnormality 03/17/2008 03/08/2011 Dizziness and giddiness 01/22/200808/04 Shortness of breath 01/22/2008 03/08/20 11 Esophageal reflux 07/10/2007 07/26/2012 Overview (07/02/2013): EGD 06/2009 benign gastric polyps EGD 06/2013 benign gastric polyps Cor Athrscl-Uns Vessel 10/03 Overview (02/17/2009): -prior RI's in 1995, 2000 -CABG 1995 -Multiple PCI with 8 stents, last 03/12 -Myoview in 08/11 with fixed inferior defect, minimal urbano-infarct ischemia, LVEF 60% Pure hypercholesterolemia Unspecified Essential Hypertension 12/13/2011 Other and Unspecified Hyperlipidemia 02/17/2012 Critical limb ischemia of le ft lower extremity 09/26/2023 Encounters Date Type Department Care Team Description 02/07/2025 Nurse Triage [facility] [address] [place] [address] Monico Modi MD Urinary Problem 01/30/2025 Refill [facility] [address] [place] [address] Monico Modi MD Refill Request (Pramipexole) 01/13/2025 10:05 AM CDT Office Visit [facility] [address] [place] [address] Monico Modi MD Follow Up (Routine 6 month follow up); Fatigue (Falls asleep often, goes to bed early) 01/13/2025 Travel 01/08/2025 Telephone [facility] [address] [phone] Costa Perla, LIZZ Device Check (PACEMAKER EVALUATION ) 01/07/2025 Telephone [facility] [address] [phone] Christelle Blanchard RN Device Check (AF alert ) 01/06/[address] [facility] [address] [place] [address] Bruce Mehta MD Refill Request 12/30/2024 Refill [facility] [address] [place] [address] Monico Modi MD Refill Request (Pramipexole) 12/12/2024 9:30 AM CDT Office Visit [facility] [address] [place] [address] Monster Morales MD CV Vascular Est (1 year follow up; carotid stenosis, lower extremity PVD. U/Ss completed on 12/10/2024 in [place].) 12/11/2024 Travel 12/10/2024 2:30 PM CDT Orders Only [address] [phone] 1 scan: (1-Ord) CAROTID DUPLEX BILATERAL ([id number]) 12/10/2024 1:00 PM CDT Orders Only [address] [phone] 1 scan: (1-Ord) US ARTERIAL LOWER EXTREMITY W JORGE BILATERAL ([id number]) 12/10/2024 Travel 12/02/2024 Telephone [facility] [address] [place] [address] Bruce Mehta MD Refill Request (Torsemide 40 mg PO daily) from Last 3 Months Immunizations Immunization Administration Dates Next Due AMB Influenza, IIV3 (Age >=3 years)(Flu Clinic Only) 02/28/2013 COVID-19 VACCINE SPIKEVAX (M ODERNA 50MCG/0.5ML) 12YO+ PFS 06/14/2024 COVID-19 vaccine (Moderna 100mcg/0.5mL) PF, MDV 07/30/2020 COVID-19 vaccine (Medical Direct Club-Bio NTech 30mcg/0.3mL) 12YO+ BIVALENT PF, MDV 04/27/2022 COVID-19 vaccine (Medical Direct [employer]-Bio NTech 30mcg/0.3mL) 12YO+ REYNA-SUCROSE PF, MDV 12/10/2021,07/14/2021 Influenza A (H1N1), Inactivated 06/09/2009 Influenza A (H1N1), Inactiva garcia (Age >=3 Years) 06/09/2009 Influenza, High-dose Inactivated 03/31/2016,02/03 Influenza, IIV3 (Age 6-35 mos) 03/08/2011,2009 Influenza, IIV3 (Age >=3 years) 02/29/20 13,02/17/2012,03/08/2011,02/11,02/10/2009,04/01/2008,04/19/2007 ,04/04/2006,04/25/2005,04/05/2004,03/06 Influenza, IIV4 02/19/2014 Influenza, Inactivated AIIV4 (Age 65+ Years) Preserv Free 04/28/2023,03/10/2022,03/11/2021,02/24 Influenza, Inactivated IIV3 (Age 65+ Years) Preserv Free 04/29/2024,05/06/2019,02/06/2018,03/09 Pneumococcal Conj 20-valent (Prevnar 20) 05/23/2022 Pneumococcal [...] drink = 0.6 oz pur e alcohol) not for 35 yrs PHQ-2 Answer Date Recorded PHQ-2 TOTAL SCORE 4 07/18/2024 Social Connections Answer Date Recorded Do you often feel lonely or isolated from those around you? 0 04/28/2023 Financial Resource Strain Answer Date R ecorded Difficulty of Paying Living Expenses 3 04/28/2023 Difficulty of Paying Living Expenses Not on file 04/28/2023 Food Insecurity Answer Date Recorded Do you worry your food will run out before you are able to buy more? 1 04/28/2023 Transportation Needs Answer Date Record ed Does lack of transportation keep you from medica l appointments? 1 04/28/2023 Does lack of transportation keep you from work, meetings or getting things that you need? 1 04/28/2023 Housing Stability Answer Date Recorded What is your housing situation today? 1 04/28/2023 Interpersonal Safety Answer Date Record ed Are you being hit, kicked, p ushed or yelled at (see row info)? 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 Gender Identity Not on file Sexual Orientation Not on file Occupation Industry Job Start Date Job End Date retired, worked at [employer] Not on file Not on f ile Not on file Obstetrics History Last Filed Vital Signs Vital Sign Reading Time Taken Comments Blood Pressure 148/75 01/13/2025 10:14 AM CDT Pulse 82 01/13/2025 10:00 AM CDT Temperature 36.5 C (97.7 F) 11/14/2023 8:00 AM CDT Respiratory Rate 16 12/28/2023 10:2 0 AM CDT Oxygen Saturation 100% 01/13/2025 10: 00 AM CDT Inhaled Oxygen Concentration - - Weight 70.7 kg (155 lb 12.8 oz) 025 10:00 AM CDT Height 162.6 cm (5' 4) 07/18/2024 9:22 AM 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 Body Mass Index 26.74 07/18/2024 9:22 AM 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 Plan of Treatment Upcoming Encounters Date Type Department Care Team (Late st Contact Info) Description 02/21/2025 3:30 PM CDT Cardiac Device Check [facility] [address] [place] [phone] 02/21/2025 4:00 PM CDT Office Visit [facility] [address] [place] [phone] Chaz Olivo MD [address] [place] [address] 04/29/2025 9:00 AM 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 Office Visit [facility] at [address] [phone] Brittney Francisco MD [address] [facility] [address] [place] [address] 07/17/2025 10:15 AM 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 Orders Only [facility] [address] [facility] [address] [facility] 07/21/2025 10:05 AM 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 Office Visit [facility] [address] [place] [address] Monico Modi MD [address] [place] [address] Health Maintenance Due Date Last Done Comments Tetanus booster 07/07/2024 07/07/2014, 04/06, 04/26/2006, Additional history exists COVID-19 vaccine series ( season) 2025 06/14/2024, 04/27/2022, 12/10/2021, Additional history exists Influenza Vaccine (#1) 2025 , 04/28/2023, 03/10/2022, Additional history exists BMI (ht and wt on same day) for age 18+ 07/18/2025 07/18/2024, 01/25/2024, 01/09/2024, Additional history exists Medicare Wellness for age 65+ 07/19/2025 07/18/2024, 04/28/2023, 08/24/2021, Additional history exists Depression screening for age 12+ 07/22/2025 07/22/2024, 07/18/2024, 04/28/2023, Additional history exists Zoster (shingles) series for age 50+ Completed 04/14/2018, 12/18/2017, 04/24/2007 Pneumococcal series for age 50+ Completed 05/23/2022, 07/07/2014, 05/05/2011, Additional history exists RSV vaccine for adults or Completed 05/24/2023 Hepatitis B series for 19+ Aged Out N o longer eligible based on patient's age to complete this topic Goals Goal Patient Goal Type Associated Problems Recent Progress Patient-Stated? Author BLOOD PRESSURE - MAINTAINS BP less than 140/90 Blood Pressure No Alpesh Rodgers MD Medical Devices Implanted Type Area Customer Service Professional Device Identifier Shelf Expiration Date Model / Serial / Lot Patch Vasc 0.8x8cm Biological Peripatch - [id number] Implanted:Qty: 1 on 11/23/2011 by Annemarie King MD at [facility] Left: Femoral Artery [employer] 03/24/2014 0.8P8# / / [id number] Urbano-Guard [id number] - [id number] Implanted:Qty: 1 on 05/24/2012 by Annemarie King MD at [facility] Right: Femoral Artery [employer] 11/25/2015 [id number]# / / [id number] Patch Vasc 0.8x8cm Xenosure Biological Pericardial - [id number] Implanted:Qty: 1 on 08/12/2016 by Monster Morales MD at [facility] Right: Carotid Artery [employer] 03/02/2022 0.8P8# / / [id number] Procedures Procedure Name Priority Date/Time Associated Diagnosis Comments BASIC METABOLIC PANEL Routine 01/13/2025 10:52 AM CDT Stage 3 chronic kidney disease, unspecified whether stage 3a or 3b CKD (HC) HEMOGLOBIN A1C Routine 01/13/2025 10:52 AM CDT Prediabetes US CAROTID DUPLEX BILATERAL Routine 12/10/2024 3:13 PM CDT Stenosis of carotid artery, unspecified laterality US ARTERIAL LOWER EXTREMITY W JORGE BILATERAL Routine 12/10/2024 3:13 PM CDT PAD (peripheral artery disease) Critical limb ischemia of left lower extremity (HC) Stenosis of carotid artery, unspecified laterality PVD (peripheral vascular disease) from Last 3 Months Results * (ABNORMAL) HEMOGLOBIN A1C (01/13/2025 10:52 AM CDT) HEMOGLOBIN A1C 6.3(H) <5.7 % [facility] Comment: For someone without known diabetes, a hemoglobin A1c value between 5.7% and 6.4% is consistent with prediabetes and should be confirmed with a follow-up test. For someone with known diabetes, a value <7% indicates that their diabetes is well controlled. A1c targets should be individualized based on duration of diabetes, age, comorbid conditions, and other considerations. This assay result is consistent with an increased risk of diabetes. Currently, no consensus exists regarding use of hemoglobin A1c for diagnosis of diabetes for children. Blood BLOOD SPECIMEN / Unknown 01/13/2025 10:52 AM CDT 01/13/2025 10:52 AM CDT Monico Modi MD CHEMISTRY Final Result [facility] [address] [place] [address], [facility] [place] [address] * (ABNORMAL) BASIC METABOLIC PANEL (01/13/2025 10:52 AM CDT) [facility] GLUCOSE 112(H) 65 - 99 mg/dL [facility] Comment: Fasting reference interval For someone without known diabetes, a glucose value between 100 and 125 mg/dL is consistent with prediabetes and should be confirmed with a follow-up test. UREA NITROGEN (BUN) 21 7 - 25 mg/dL [facility] CREATININE 1.42(H) 0.70 - 1.22 mg/dL [facility] EGFR 49(L) > OR = 60 mL/min/1.7 3m2 [facility] BUN/CREATININE RATIO 15 6 - 22 (calc) [facility] SODIUM 136 135 - 146 mmol/L [facility] POTASSIUM 4.4 3.5 - 5.3 mmol/L [facility] CHLORIDE 99 98 - 110 mmol/L [facility] CARBON DIOXIDE 29 20 - 32 mmol/L [facility] ELECTROLYTE BALANCE 8 7 - 17 mmol/L (calc) [facility] CALCIUM 9.2 8.6 - 10.3 mg/dL [facility] Blood BLOOD SPECIMEN / Unknown 01/13/2025 10:52 AM CDT 01/13/2025 10:52 AM CDT us Monico Modi MD CHEMISTRY Final Result [facility] [address] [place] [address], [facility] [address] [place] [address] * US CAROTID DUPLEX BILATERAL (12/10/2024 3:13 PM CDT) Anatomical Region Laterality Modality CAROTID, NECK Ultrasound 12/10/2024 1:22 PM CDT Narrative 12/10/2024 5:29 PM CDT VASCULAR ULTRASOUND REPORT ANISH COUGHLIN : 1940 Study Date: 12/10/2024 1:22:55 PM Age: 84 years Tech: BVB Gender: M Referring MD: MONSTER MORALES Site: [facility] Study performed: Carotid Indication for Study: hx right CEA and follow-up known disease TECHNIQUE: The extracranial carotid arteries, vertebral arteries and subclavian arteries were examined per exam protocol with duplex ultrasound, color-flow and spectral Doppler. Flow velocities including peak systolic (PSV), end diastolic (EDV), and velocity ratios if applicable were documented at sites per exam protocol. IMPRESSION: 1. Based on the ICA velocities, ICA/CCA ratio, and 2D images there is plaque causing <50% stenosis in the right internal carotid artery status post endarterectomy and there is plaque causing <50% stenosis in the left internal carotid artery. 2. Again a hemodynamically significant stenosis is noted in the left mid CCA, most likely in the moderate range, not significantly changed from previous. 3. Normal antegrade flow within bilateral vertebral arteries. 4. Multiphasic flow within bilateral subclavian arteries. COMPARISON: Compared to prior study 12/12/2023, there is no significant change. FINDINGS: Highly shadowing plaque noted in the left carotid bulb/ICA which may obscure underlying disease. RIGHT FINDINGS: Antegrade flow in the right vertebral artery. Normal multiphasic right subclavian artery flow. LEFT FINDINGS: Antegrade flow in the left vertebral artery. Normal multiphasic left subclavian artery flow. MEASUREMENTS: +--------+--------+------+--------+--------+ RIGHT RIGHT LEFT LEFT +--------+--------+------+--------+--------+ PSV cm/s EDV cm/s Vessel PSV cm/s EDV cm/s +--------+--------+------+--------+--------+ 78 8 P. CCA 83 6 +--------+--------+------+--------+--------+ 101 10 M. CCA 217 24 +--------+--------+------+--------+--------+ 89 15 D. CCA 139 26 +--------+--------+------+--------+--------+ 93 12 P. ICA 130 25 +--------+--------+------+--------+--------+ 108 18 M. ICA 67 13 +--------+--------+------+--------+--------+ 71 15 D. ICA 52 14 +--------+--------+------+--------+--------+ 107 0 ECA 83 0 +--------+--------+------+--------+--------+ +-----+ +----+ RIGHT LEFT +-----+ +----+ 40 Vertebral Artery (cm/s) +-----+ +----+ 1.2 ICA/CCA Ratio 0.9 +-----+ +----+ Monster Morales MD. Electronically signed on 12/10/2024 5:29:54 PM This study was performed and interpreted by a service accredited by the Intersocietal Accreditation Commission (IAC/Vascular), [email or web address].org/vascular Report generated by [employer]. Final Procedure Note Monster Morales MD - 12/10/2024 VASCULAR ULTRASOUND REPORT ANISH COUGHLIN : 1940 Study Date: 12/10/2024 1:22:55 PM Age: 84 years Tech: BVB Gender: M Referring MD: MONSTER MORALES Site: [facility] Study performed: Carotid Indication for Study: hx right CEA and follow-up known disease TECHNIQUE: The extracranial carotid arteries, vertebral arteries and subclavianarteries were examined per exam protocol with duplex ultrasound,color-flow and spectral Doppler. Flow velocities including peak systolic(PSV), end diastolic (EDV), and velocity ratios if applicable weredocumented at sites per exam protocol. IMPRESSION: 1. Based on the ICA velocities, ICA/CCA ratio, and 2D images there isplaque causing <50% stenosis in the right internal carotid artery statuspost endarterectomy and there is plaque causing <50% stenosis in the leftinternal carotid artery. 2. Again a hemodynamically significant stenosis is noted in the left midCCA, most likely in the moderate range, not significantly changed fromprevious. 3. Normal antegrade flow within bilateral vertebral arteries. 4. Multiphasic flow within bilateral subclavian arteries. COMPARISON: Compared to prior study 12/12/2023, there is no significant change. FINDINGS: Highly shadowing plaque noted in the left carotid bulb/ICA which mayobscure underlying disease. RIGHT FINDINGS: Antegrade flow in the right vertebral artery. Normal multiphasic rightsubclavian artery flow. LEFT FINDINGS: Antegrade flow in the left vertebral artery. Normal multiphasic leftsubclavian artery flow. MEASUREMENTS: +--------+--------+------+--------+--------+ RIGHT RIGHT LEFT LEFT +--------+--------+------+--------+--------+ PSV cm/s EDV cm/s Vessel PSV cm/s EDV cm/s +--------+--------+------+--------+--------+ 78 8 P. CCA 83 6 +--------+--------+------+--------+--------+ 101 10 M. CCA 217 24 +--------+--------+------+--------+--------+ 89 15 D. CCA 139 26 +--------+--------+------+--------+--------+ 93 12 P. ICA 130 25 +--------+--------+------+--------+--------+ 108 18 M. ICA 67 13 +--------+--------+------+--------+--------+ 71 15 D. ICA 52 14 +--------+--------+------+--------+--------+ 107 0 ECA 83 0 +--------+--------+------+--------+--------+ +-----+ +----+ RIGHT LEFT +-----+ +----+ 40 Vertebral Artery (cm/s) +-----+ +----+ 1.2 ICA/CCA Ratio 0.9 +-----+ +----+ Monster Morales MD. Electronically signed on 12/10/2024 5:29:54 PM This study was performed and interpreted by a service accredited by theIntersocietal Accreditation Commission (IAC/Vascular),[email or web address] Report generated by [employer]. Final us Monster Morales MD US Final Result * US ARTERIAL LOWER EXTREMITY W JORGE BILATERAL (12/10/2024 3:13 PM CDT) Anatomical Region Laterality Modality LEGS Ultrasound 12/10/2024 12:3 9 PM CDT Narrative 12/10/2024 5:43 PM CDT VASCULAR ULTRASOUND REPORT ANISH COUGHLIN : 1940 Study Date: 12/10/2024 12:39:54 PM Age: 84 years Tech: BVB Gender: M Referring MD: MONSTER MORALES Site: [facility] Study performed: Lower extremity duplex US, resting JORGE, TBI, (bilateral). Indication for study: f/u right SFA stent and left MEDICAL TECHNICIAN to 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 bypass TECHNIQUE: Lower/upper extremity arteries were examined per exam protocol by duplex ultrasound, color-flow and spectral Doppler. Peak systolic velocities (PSV), Doppler waveform quality, velocity ratios and vessel size in cm, were documented at protocol specific sites. Physiologic data including segmental pressures, ankle/brachial index (JORGE), digit PPG recordings, laser Doppler flowmetry, transcutaneous oximetry, and digit temperatures were documented at sites per exam protocol and test requirements. IMPRESSION: 1. Resting ankle-brachial index is mildly reduced on the right at 0.95, noncompressible on the left. 2. Toe-brachial index is moderately to severely reduced on the right at 0.25 and toe-brachial index is moderately reduced on the left at 0.46. 3. Patent right SFA p/m stent with monophasic signals throughout and no evidence of a focal stenosis or occlusion. 4. Occluded right mid SFA and entire MAT. 5. Occluded pre-stent area of the right SFA m/d stent with flow reconstitution to the proximal stent via collateral, the stent is patent in the proximal and mid portions and is occluded in the distal and post stent area. The stent is difficult to identify due to calcification. 6. Patent left MEDICAL TECHNICIAN to 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 bypass graft with multiphasic signals and no evidence of a focal stenosis or occlusion. 7. Cystic structure noted in the left proximal medial calf measuring 4.3 x 1.5 x 1.5cm. COMPARISON: Compared to prior study 05/21/2024, there is no significant change. FINDINGS: Right toe/brachial index indicates moderate to severe range. Left ankle/brachial index is noncompressible. Left toe/brachial index indicates moderate range. +--------+ + + RIGHT Velocity cm/s Phasicity +--------+ + + MEDICAL TECHNICIAN PRX 95 multiphasic +--------+ + + MEDICAL TECHNICIAN DST 72 multiphasic +--------+ + + PFA 93 multiphasic +--------+ + + SFA PRX 48 multiphasic +--------+ + + SFA MID 0 occluded +--------+ + + SFA DST 0 occluded (stent) +--------+ + + MAT PRX 0 occluded +--------+ + + MAT DST 0 occluded +--------+ + + 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 DST 39 monophasic +--------+ + + DPA 0 occluded +--------+ + + +-------+ + + LEFT Velocity cm/s Phasicity +-------+ + + MEDICAL TECHNICIAN PRX 240 multiphasic +-------+ + + MEDICAL TECHNICIAN DST 60 multiphasic +-------+ + + PFA 50 multiphasic +-------+ + + 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 DST 21 monophasic +-------+ + + DPA 24 monophasic +-------+ + + Criteria: Stenosis V. Ratio Mild <50% <2.0 Moderate 50-74% > or = 2.0 Severe 75-99% > or = 4.0 Occluded 100% no detectable flow Pressures +-----+ +--------+ +-----+ RIGHT (mmHg) LEFT (mmHg) +-----+ +--------+ +-----+ Index 167 Brachial 162 Index +-----+ +--------+ +-----+ 0.95 159 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 +-----+ +--------+ +-----+ 0.25 42 Digit 1 76 0.46 +-----+ +--------+ +-----+ STENT Stent Location Right: SFA p/m. + + + +--------+-----+ RIGHT Velocity cm/s Phasicity Stenosis Ratio + + + +--------+-----+ PRE Stent 30 monophasic + + + +--------+-----+ PRX Stent 36 monophasic + + + +--------+-----+ MID Stent 37 monophasic + + + +--------+-----+ DST Stent 51 monophasic + + + +--------+-----+ POST Stent 18 monophasic + + + +--------+-----+ Stent Location Right #2: SFA m/d. + + + +--------+-----+ RIGHT Velocity cm/s Phasicity Stenosis Ratio + + + +--------+-----+ PRE Stent 0 occluded + + + +--------+-----+ PRX Stent 42 monophasic + + + +--------+-----+ MID Stent 19 monophasic + + + +--------+-----+ DST Stent 0 occluded + + + +--------+-----+ POST Stent 0 occluded + + + +--------+-----+ BYPASS GRAFT Left graft type: MEDICAL TECHNICIAN to 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. +---------+ + +--------+-----+ LEFT Velocity cm/s Phasicity Stenosis Ratio +---------+ + +--------+-----+ INFLOW 60 multiphasic +---------+ + +--------+-----+ PRX ANAST 113 multiphasic +---------+ + +--------+-----+ PRX GRAFT 102 multiphasic +---------+ + +--------+-----+ MID GRAFT 36 multiphasic +---------+ + +--------+-----+ DST GRAFT 45 multiphasic +---------+ + +--------+-----+ DST ANAST 70 multiphasic +---------+ + +--------+-----+ OUTFLOW 95 monophasic +---------+ + +--------+-----+ Monster Morales MD. Electronically signed on 12/10/2024 5:43:43 PM This study was performed and interpreted by a service accredited by the Intersocietal Accreditation Commission (IAC/Vascular), [email or web address] Report generated by [employer]. Final Procedure Note Monster Morales MD - 12/10/2024 VASCULAR ULTRASOUND REPORT ANISH COUGHLIN : 1940 Study Date: 12/10/2024 12:39:54 PM Age: 84 years Tech: BVB Gender: M Referring MD: MONSTER MORALES Site: [facility] Study performed: Lower extremity duplex US, resting JORGE, TBI,(bilateral). Indication for study: f/u right SFA stent and left MEDICAL TECHNICIAN to 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 bypass TECHNIQUE: Lower/upper extremity arteries were examined per exam protocol by duplexultrasound, color-flow and spectral Doppler. Peak systolic velocities(PSV), Doppler waveform quality, velocity ratios and vessel size in cm,were documented at protocol specific sites. Physiologic data includingsegmental pressures, ankle/brachial index (JORGE), digit PPG recordings,laser Doppler flowmetry, transcutaneous oximetry, and digit temperatureswere documented at sites per exam protocol and test requirements. IMPRESSION: 1. Resting ankle-brachial index is mildly reduced on the right at 0.95,noncompressible on the left. 2. Toe-brachial index is moderately to severely reduced on the right at0.25 and toe-brachial index is moderately reduced on the left at 0.46. 3. Patent right SFA p/m stent with monophasic signals throughout and noevidence of a focal stenosis or occlusion. 4. Occluded right mid SFA and entire MAT. 5. Occluded pre-stent area of the right SFA m/d stent with flowreconstitution to the proximal stent via collateral, the stent is patentin the proximal and mid portions and is occluded in the distal and poststent area. The stent is difficult to identify due to calcification. 6. Patent left MEDICAL TECHNICIAN to 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 bypass graft with multiphasic signals and noevidence of a focal stenosis or occlusion. 7. Cystic structure noted in the left proximal medial calf measuring 4.3x 1.5 x 1.5cm. COMPARISON: Compared to prior study 05/21/2024, there is no significant change. FINDINGS: Right toe/brachial index indicates moderate to severe range. Left ankle/brachial index is noncompressible. Left toe/brachial indexindicates moderate range. +--------+ + + RIGHT Velocity cm/s Phasicity +--------+ + + MEDICAL TECHNICIAN PRX 95 multiphasic +--------+ + + MEDICAL TECHNICIAN DST 72 multiphasic +--------+ + + PFA 93 multiphasic +--------+ + + SFA PRX 48 multiphasic +--------+ + + SFA MID 0 occluded +--------+ + + SFA DST 0 occluded (stent) +--------+ + + MAT PRX 0 occluded +--------+ + + MAT DST 0 occluded +--------+ + + 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 DST 39 monophasic +--------+ + + DPA 0 occluded +--------+ + + +-------+ + + LEFT Velocity cm/s Phasicity +-------+ + + MEDICAL TECHNICIAN PRX 240 multiphasic +-------+ + + MEDICAL TECHNICIAN DST 60 multiphasic +-------+ + + PFA 50 multiphasic +-------+ + + 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 DST 21 monophasic +-------+ + + DPA 24 monophasic +-------+ + + Criteria: Stenosis V. Ratio Mild <50% <2.0 Moderate 50-74% > or = 2.0 Severe 75-99% > or = 4.0 Occluded 100% no detectable flow Pressures +-----+ +--------+ +-----+ RIGHT (mmHg) LEFT (mmHg) +-----+ +--------+ +-----+ Index 167 Brachial 162 Index +-----+ +--------+ +-----+ 0.95 159 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 +-----+ +--------+ +-----+ 0.25 42 Digit 1 76 0.46 +-----+ +--------+ +-----+ STENT Stent Location Right: SFA p/m. + + + +--------+-----+ RIGHT Velocity cm/s Phasicity Stenosis Ratio + + + +--------+-----+ PRE Stent 30 monophasic + + + +--------+-----+ PRX Stent 36 monophasic + + + +--------+-----+ MID Stent 37 monophasic + + + +--------+-----+ DST Stent 51 monophasic + + + +--------+-----+ POST Stent 18 monophasic + + + +--------+-----+ Stent Location Right #2: SFA m/d. + + + +--------+-----+ RIGHT Velocity cm/s Phasicity Stenosis Ratio + + + +--------+-----+ PRE Stent 0 occluded + + + +--------+-----+ PRX Stent 42 monophasic + + + +--------+-----+ MID Stent 19 monophasic + + + +--------+-----+ DST Stent 0 occluded + + + +--------+-----+ POST Stent 0 occluded + + + +--------+-----+ BYPASS GRAFT Left graft type: MEDICAL TECHNICIAN to 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. +---------+ + +--------+-----+ LEFT Velocity cm/s Phasicity Stenosis Ratio +---------+ + +--------+-----+ INFLOW 60 multiphasic +---------+ + +--------+-----+ PRX ANAST 113 multiphasic +---------+ + +--------+-----+ PRX GRAFT 102 multiphasic +---------+ + +--------+-----+ MID GRAFT 36 multiphasic +---------+ + +--------+-----+ DST GRAFT 45 multiphasic +---------+ + +--------+-----+ DST ANAST 70 multiphasic +---------+ + +--------+-----+ OUTFLOW 95 monophasic +---------+ + +--------+-----+ Monster Morales MD. Electronically signed on 12/10/2024 5:43:43 PM This study was performed and interpreted by a service accredited by theIntersocietal Accreditation Commission (IAC/Vascular),[email or web address] Report generated by [employer]. Final us Monster Moraels MD Final Result from Last 3 Months Insurance MEDICARE PB ONLY MEDICARE PART B HB ONLY MEDICARE PART A HB ONLY [facility] MEDICARE PPS [facility] Advance Directives Documents on File Type Date Recorded Patient Patient Services Coordinator Expl anation Healthcare Directive 08/04/2009 HEALTH CARE DIRECTIVE, [facility], 08/04/2009 * Full Code (Latest Code Status on File) Date Activated Date Inactivated Comments 11/14/2023 10:52 AM 11/14/2023 1:17 PM Question Answer Comments Code Status Discussion: Other * Full Code Date Activated Date Inactivated Comments 01/13/2023 4:48 [...] Answer Comments Code Status Discussion: Not Discussed Care Teams Autocad Technician Relationship Specialty Start Date End Date Monico Modi MD [address] [place] [address] PCP - General Family Practice 11/10/16 Yong Siddiqi MD [address] [place] [address] [address] Gastroenterology 05/20/11 Dillan Eubanks MD [address] [place] [address] [address] Cardiovascular Disease 05/20/11
[2025-02-07 09:10] VITALS: BP 120/66; PULSE 90; RESP 18; TEMP 36.2; O2SAT 98; BMI 25.8
--- NOTE | 2025-02-07 09:20 | CRLHL7_ITS ---
For Patients: As a result of the Century Cures Act, medical imaging exams and procedure reports are released immediately into your electronic medical record. You may view this report before your referring provider. If you have questions, please contact your health care provider. INDICATION: Cough COMPARISON: 05/29/2022 TECHNIQUE: 1 view chest radiograph. FINDINGS: Devices: Left subclavian transvenous pacer with right atrial and biventricular leads in similar position. Lung volumes are moderate. Prominent pulmonary vascular markings without interstitial edema. No focal consolidations. No pleural effusion. No pneumothorax. No pneumomediastinum. Heart size is large but unchanged. Atherosclerosis. Similar median sternotomy wires. The top 2 sternotomy wires are broken. Postop left humerus. No acute appearing bone findings. IMPRESSION: Mild pulmonary vascular congestion without interstitial edema. No focal lung findings. Dictated by Leigh Sanchez MD @ 02/07/2025 10:07:50 AM (Electronically Signed)
--- NOTE | 2025-02-07 09:26 | ED.GENADULT ---
HPI - General Adult General Chief complaint: Urogenital Problems, Male Stated complaint: difficulty breathing Time Seen by Provider: 02/07/25 09:14 History of Present Illness HPI narrative: Patient is an 84-year-old white male with a complex medical history, his chart was reviewed, he has a complaint now of inability to urinate other than some small amount over the last couple of days. He has not been having fevers he has not had chills. He reports that he has difficulty urinating. He does report to me that he occasionally has self catheterized. That is reported in his chart. He was having difficulty urinating and came to the ER. He told the front office supervisor that he was having shortness of breath he thinks that is related to his stomach feeling full from his bladder. He has not had significant shortness of breath or cough, he did report that he choked a little bit on a breakfast food and subsequently had this develop in his abdomen. He has had no chronic cough or shortness of breath. His medical history is extensive including congestive heart failure. Related Data Home Medications ?Medication ?Instructions ?Recorded ?Confirmed carvedilol 12.5 mg tablet 6.25 mg PO BID 03/13/22 09/14/23 clonidine HCl 0.1 mg tablet 0.1 mg PO Q12H PRN 03/13/22 09/14/23 clopidogrel 75 mg tablet 75 mg PO DAILY 03/13/22 09/14/23 pramipexole 0.5 mg tablet 0.5 mg PO HS 03/13/22 09/14/23 atorvastatin 80 mg tablet 80 mg PO HS 05/29/22 09/14/23 calcium carb-magnesium carb 400 2 tab PO HS 05/29/22 09/14/23 mg-200 mg tablet nitroglycerin 0.4 mg sublingual 0.4 mg sublingual Q5M PRN chest 05/29/22 09/14/23 tablet pain omeprazole 40 mg capsule,delayed 40 mg PO DAILY 05/29/22 09/14/23 release quetiapine 25 mg tablet 25 mg PO HS 05/29/22 09/14/23 sodium chloride 1,000 mg soluble 500 mg PO BID 05/29/22 09/14/23 tablet magnesium oxide 400 mg (241.3 mg 400 mg PO DAILY 09/12/23 09/14/23 magnesium) tablet melatonin 3 mg capsule 3 mg PO DAILY 09/12/23 09/14/23 multivitamin 1 tab PO DAILY 09/12/23 09/14/23 Previous Rx's ?Medication ?Instructions ?Recorded potassium chloride 10 mEq 20 meq (2 x 10 mEq) PO BIDWM #60 06/01/22 capsule,extended release caps torsemide 20 mg tablet 20 mg PO DAILY@0800 #30 tabs 06/01/22 hydrocodone 5 mg-acetaminophen 325 1 tab PO Q6H PRN pain #10 tabs 09/14/23 mg tablet sennosides 8.6 mg capsule (senna) 8.6 mg PO DAILY PRN constipation 09/14/23 #90 caps nitrofurantoin 100 mg PO BID #10 caps 02/07/25 monohydrate/macrocrystals 100 mg capsule (Macrobid) Allergies Allergy/AdvReac Type Severity Reaction Status Date / Time amitriptyline (From Elavil) Allergy Verified 09/20/23 20:07 amlodipine Allergy low Verified 09/20/23 20:07 pressures ciprofloxacin Allergy severe Verified 09/20/23 20:07 hives citalopram (From Celexa) Allergy Diarrhea Verified 09/20/23 20:07 erythromycin base Allergy Verified 09/20/23 20:07 escitalopram (From Lexapro) Allergy Depression Verified 09/20/23 20:07 ezetimibe (From Zetia) Allergy Nausea Verified 09/20/23 20:07 hydrochlorothiazide Allergy cramps Verified 09/20/23 20:07 lactose Allergy GI upset Verified 09/20/23 20:07 Penicillins Allergy Hives Verified 09/20/23 20:07 rosuvastatin (From Crestor) Allergy Rash Verified 09/20/23 20:07 sulindac Allergy sedation Verified 09/20/23 20:07 co Q10 Allergy myalgia Uncoded 09/12/23 09:20 Review of Systems Status of ROS: Reports: 6 or more systems reviewed and unremarkable except as noted in History and below [facility] Medical History 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 - Poisoning by other antidysrhythmic drugs, accidental (unintentional), initial encounter (ICD-10) Inguinal hernia of left side without obstruction or gangrene ?K40.90 - Unilateral inguinal hernia, without obstruction or gangrene, not specified as recurrent (ICD-10) BPH (benign prostatic hyperplasia) ?N40.0 - Benign prostatic hyperplasia without lower urinary tract symptoms (ICD-10) Chronic hyponatremia ?E87.1 - Hypo-osmolality and hyponatremia (ICD-10) History of hallucinations ?Z87.898 - Personal history of other specified conditions (ICD-10) GERD (gastroesophageal reflux disease) ?K21.9 - Gastro-esophageal reflux disease without esophagitis (ICD-10) Critical limb ischemia with history of revascularization of same extremity ?I70.229 - Atherosclerosis of [place] arteries of extremities with rest pain, unspecified extremity (ICD-10) ?Z98.890 - Other specified postprocedural states (ICD-10) History of Mobitz type II atrioventricular block ?Z86.79 - Personal history of other diseases of the circulatory system (ICD-10) Non-STEMI (non-ST elevated myocardial infarction) ?I21.4 - Non-ST elevation (NSTEMI) myocardial infarction (ICD-10) Peripheral artery disease ?I73.9 - Peripheral vascular disease, unspecified (ICD-10) Peripheral neuropathy ?G62.9 - Polyneuropathy, unspecified (ICD-10) Coronary artery disease ?I25.10 - Atherosclerotic heart disease of [place] coronary artery without angina pectoris (ICD-10) Lactose intolerance ?E73.9 - Lactose intolerance, unspecified (ICD-10) Mixed hyperlipidemia ?E78.2 - Mixed hyperlipidemia (ICD-10) Carotid artery stenosis ?I65.29 - Occlusion and stenosis of unspecified carotid artery (ICD-10) Chronic kidney disease ?N18.9 - Chronic kidney disease, unspecified (ICD-10) Generalized anxiety disorder ?F41.1 - Generalized anxiety disorder (ICD-10) RLS (restless legs syndrome) ?G25.81 - Restless legs syndrome (ICD-10) Surgical History S/P TURP ?Z90.79 - Acquired absence of other genital organ(s) (ICD-10) S/P rotator cuff repair ?Z98.890 - Other specified postprocedural states (ICD-10) S/P placement of cardiac pacemaker ?Z95.0 - Presence of cardiac pacemaker (ICD-10) History of total hip replacement ?Z96.649 - Presence of unspecified artificial hip joint (ICD-10) History of CEA (carotid endarterectomy) ?Z98.890 - Other specified postprocedural states (ICD-10) S/P femoral-popliteal bypass surgery ?Z95.828 - Presence of other vascular implants and grafts (ICD-10) S/P coronary artery stent placement ?Z95.5 - Presence of coronary angioplasty implant and graft (ICD-10) History of laparoscopic cholecystectomy ?Z90.49 - Acquired absence of other specified parts of digestive tract (ICD-10) S/P CABG x 3 ?Z95.1 - Presence of aortocoronary bypass graft (ICD-10) History of coronary angioplasty ?Z98.61 - Coronary angioplasty status (ICD-10) Social History Narrative: Lives in [place]. Independent. 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 Previous smoker. Quit date 1988. No alcohol use. Retired from [employer]. . Five adult children. Highest level of school completed/degree received: 12th grade, no diploma Smoking Status: Former smoker How often do you have a drink containing alcohol: never AUDIT-C Alcohol total score: 0 Non-prescribed substance use: denies use Caffeine: Yes service: No Exam Narrative: Exam Narrative: Objective: Patient's vital signs look within normal limits his O2 sat is excellent at 90% He is alert orient x3 no distress Lungs are clear heart rate and rhythm regular 2/6 systolic murmur occasional ectopic beat noted Abdomen is mildly this tended in his lower abdomen, he has got mild suprapubic tenderness. No rebound. Extremities are no edema Neurologic nonfocal upper lower extremities. Const: Vital Signs, click to edit/add: Vital Signs - 24 hr 02/07/25 09:10 Temperature 97.1 F L Pulse Rate [Pulse Oximeter] 90 Respiratory Rate 18 Blood Pressure [Ri ght Upper Arm] 120/66 Pulse Oximetry 98 Oxygen Delivery Me thod Room Air Course Vital Signs Vital signs: Initial Vital Signs Temperature 97.1 F L 02/07/25 09:10 Temperature Source Temporal Artery Scan 02/07/25 09:10 Pulse Rate 90 02/07/25 09:10 Respiratory Rate 18 02/07/25 09:10 Blood Pressure 120/66 02/07/25 09:10 Blood Pressure Mean 84 02/07/25 09:10 Pulse Oximetry 98 02/07/25 09:10 Oxygen Delivery Method Room Air 02/07/25 09:10 Vital Signs Temperature 97.1 F L 02/07/25 09:10 Pulse Rate 90 02/07/25 09:10 Respiratory Rate 18 02/07/25 09:10 Blood Pressure 120/66 02/07/25 09:10 Pulse Oximetry 98 02/07/25 09:10 Oxygen Delivery Method Room Air 02/07/25 09:10 Temperature 97.1 F L 02/07/25 09:10 Pulse Rate 90 02/07/25 09:10 Respiratory Rate 18 02/07/25 09:10 Blood Pressure 120/66 02/07/25 09:10 Pulse Oximetry 98 02/07/25 09:10 Oxygen Delivery Method Room Air 02/07/25 09:10 Medications Administered Medications: Discontinued Medications Generic Name Dose Route Start Last Admin Trade Name Freq PRN Reason Stop Dose Admin Ceftriaxone Sodium 500 mg 02/07/25 10:46 02/07/25 10:55 Ceftriaxone 500 Mg Vial IM 02/07/25 10:47 500 mg ONCE ONE Administration Lidocaine HCl 6 ml 02/07/25 09:20 02/07/25 09:44 Lidocaine Hcl 2 % Jelly (Top) Sterile TOPICAL 02/07/25 09:21 6 ml ONCE ONE Administration Lidocaine HCl 1 ml 02/07/25 10:46 02/07/25 10:56 Lidocaine 1% 5 Ml (Pf) 5 Ml Vial IM 1 ml DIRECTED PRN Administration Pain Nitrofurantoin Macrocrystals 100 mg 02/07/25 10:16 02/07/25 10:38 Nitrofurantoin Monohyd Macro 100 Mg Capsule PO 02/07/25 10:17 100 mg ONCE ONE Administration Medical Decision Making MDM Narrative Medical decision making narrative: [age] year white male with urinary retention, will place a catheter after bladder scan done. He has had a history of TURP and BPH. I think also this is likely causing his difficulty with breathing although he does not appear hypoxic and does appear to be working to breathe now. Will check an EKG and troponin for completeness as well as lab studies. Disposition pending findings above. Will check a urinalysis as well. Of note is he denies having chest pain Addendum 11:24 a.m.: Patient's EKG shows a ventricular paced rhythm by my independent interpretation, chest x-ray looks largely unremarkable, again by my interpretation. Laboratory studies show him to have a positive urinary tract infection, his white count is normal hemoglobin normal, ER profile largely unremarkable. Nonfasting glucose 132 proBNP is elevated 4520. Urinalysis shows greater than 100 white blood cells per high-powered field. Patient was given Rocephin IM and will be started on Macrobid. He will leave his Lopez catheter in place will have this changed a couple of days or removed at his primary care doctor. Perhaps his UTI stimulated his lack of urine output. He can return any time. Lab Data Labs: Lab Results 02/07/25 02/07/25 Range/Units 09:46 09:50 WBC 6.60 (4.50-11.00) K/uL RBC 3.93 L (4.30-5.90) m/uL Hgb 11.3 L (13.5-17.5) gm/dL Hct 34.9 L (37.0-53.0) % MCV 89 (80-100) fL MCH 29 (26-34) pg MCHC 32 (32-36) gm/dL RDW Coeff of [place]ba 15.1 (11.5-15.5) % Plt Count 105 L (140-440) K/uL Neut % (Auto) 77.2 H (42.0-72.0) % Lymph % (Auto) 11.1 L (20-44) % [place] % (Auto) 7.6 (0.0-11.0) % Eos % (Auto) 2.9 (0.0-7.0) % Baso % (Auto) 0.3 (0.0-3.0) % Neut # (Auto) 5.10 (1.7-7.0) K/uL Lymph # (Auto) 0.70 L (0.90-2.90) K/uL [place] # (Auto) 0.50 (0.00-0.90) K/UL Eos # (Auto) 0.19 (0.00-0.50) K/uL Baso # (Auto) 0.02 (0.00-0.30) K/uL Abs Immat Gran (auto) 0.06 (0.00-0.30) K/uL Imm/Tot Granulo (auto) 0.9 % Sodium 134 L (135-149) mmol/L Potassium 3.9 (3.6-5.1) mmol/L Chloride 97 (96-114) mmol/L Carbon Dioxide 29 (20-32) mmol/L Anion Gap 8 (7-15) mEq/L BUN 14 (7-30) mg/dL Creatinine 1.2 (0.5-1.5) mg/dL Estimated Creat Clear 42.09 Estimated GFR 60 ml/min Glucose 132 H (60-115) mg/dL Calcium 8.4 (8.4-10.6) mg/dL NT-Pro-B Natriuret Pep 4520 H (See Note) pg/mL Urine Color Yellow (Yellow) Urine Appearance Clear (Clear) Urine pH 6.5 (5.0-8.5) Ur Specific [place] 1.010 (1.000-1.030) Urine Protein Negative (Negative) Urine Glucose (UA) Negative (Negative) Urine Ketones Negative (Negative) Urine Blood 1+ A (Negative) Urine Nitrite Negative (Negative) Urine Bilirubin Negative (Negative) Urine Urobilinogen 0.2 (0.2-1.0) Ur Leukocyte Esterase 2+ A (Negative) Urine RBC 0-2 (0-2) Urine WBC >100 A (0-5) Ur Squamous Epith Cells Few (None-Few) Urine Bacteria Few A (None) POC Troponin I 0.02 (0.01-0.04) ng/ml Discharge Plan Discharge Clinical Impression: Acute urinary retention, Congestive heart failure, Coronary artery disease, Urinary tract infection Patient Disposition: Home w/ Parent or Adult Condition: Improved Instructions: Urinary Tract Infection in Men (ED), Lopez Catheter Placement and Care (ED) Additional Instructions: Leave the catheter in until you see your regular doctor within the next 4-5 days. Will put him on antibiotic until then. Return if problems or concerns. Activity Level: Light activity Discharge Diet: Heart Healthy (2 gm sodium, low fat) Prescriptions: New nitrofurantoin monohyd/m-cryst [Macrobid] 100 mg capsule 100 mg PO BID Qty: 10 0RF Rx Instructions: must administer with a meal/food No Action clonidine HCl 0.1 mg tablet 0.1 mg PO Q12H PRN Rx Instructions: for hypertensive urgency, 170/90 or greater carvedilol 12.5 mg tablet 6.25 mg PO BID clopidogrel 75 mg tablet 75 mg PO DAILY pramipexole 0.5 mg tablet 0.5 mg PO HS atorvastatin 80 mg tablet 80 mg PO HS nitroglycerin 0.4 mg tablet, sublingual 0.4 mg sublingual Q5M PRN (Reason: chest pain) omeprazole 40 mg capsule,delayed release(DR/EC) 40 mg PO DAILY quetiapine 25 mg tablet 25 mg PO HS calcium carb-magnesium carb 400-200 mg tablet 2 tab PO HS sodium chloride 1,000 mg tablet,soluble 500 mg PO BID potassium chloride 10 mEq Capsule, Extended Release 20 meq PO BIDWM Qty: 60 0RF torsemide 20 mg Tablet 20 mg PO DAILY@0800 Qty: 30 0RF magnesium oxide 400 mg (241.3 mg magnesium) tablet 400 mg PO DAILY melatonin 3 mg capsule 3 mg PO DAILY multivitamin Tablet 1 tab PO DAILY hydrocodone-acetaminophen 5-325 mg tablet 1 tab PO Q6H PRN (Reason: pain) Qty: 10 0RF senna 8.6 mg capsule 8.6 mg PO DAILY PRN (Reason: constipation) Qty: 90 0RF Follow Up/Referrals: oMnico Modi MD [Primary Care Provider, Family Practice] Stand Alone Forms: [facility] Info Instructions
[2025-02-07] MEDS: lidocaine HCL 2 % JELLY (TOP) STERILE 6 ML TOPICAL (09:44)
[2025-02-07 09:50] LABS: Appearance Urine Clear (Clear)
[2025-02-07 10:12] LABS: Troponin, Point-of-Care* 0.02 ng/ml (0.01-0.04)
[2025-02-07 10:17] LABS: Hematocrit* 34.9 % (37.0-53.0); Hemoglobin* 11.3 gm/dL (13.5-17.5); Immature Granulocytes Abs Auto 0.06 K/uL (0.00-0.30); Immature Granulocytes Pct Auto 0.9 %; Mean Corpuscular HGB Conc 32 gm/dL (32-36); Mean Corpuscular Hemoglobin 29 pg (26-34); Mean Corpuscular Volume 89 fL (80-100); RDW Coefficient of Variation % 15.1 % (11.5-15.5); Red Blood Count* 3.93 m/uL (4.30-5.90); White Blood Count* 6.60 K/uL (4.50-11.00)
[2025-02-07 10:22] LABS: Lymphocytes Absolute Auto 0.70 K/uL (0.90-2.90)
[2025-02-07 10:24] LABS: Slide Review Reflex No
[2025-02-07] MEDS: NITROFURANTOIN MONOHYD MACRO 100 MG CAPSULE PO (10:38)
[2025-02-07 10:40] LABS: Chloride* 97 mmol/L (96-114); Sodium* 134 mmol/L (135-149)
[2025-02-07 10:41] LABS: Potassium* 3.9 mmol/L (3.6-5.1)
[2025-02-07 10:44] LABS: Anion Gap 8 mEq/L (7-15); Blood Urea Nitrogen* 14 mg/dL (7-30); Calcium* 8.4 mg/dL (8.4-10.6); Carbon Dioxide* 29 mmol/L (20-32); Creatinine* 1.2 mg/dL (0.5-1.5); Est. Creatinine Clearance* 42.09; Estimated Glomerular Filt Rate 60 ml/min; Glucose* 132 mg/dL (60-115)
[2025-02-07] MEDS: cefTRIAXone 500 MG VIAL IM (10:55)
[2025-02-07 10:56] LABS: NT Pro B Type NatriureticPept* 4520 pg/mL (See Note)
[2025-02-07] MEDS: LIDOCAINE 1% 5 ml (pf) 5 ML VIAL 1 ML IM (10:56)
== END 2025-02-07 11:32 | disposition home or self-care (01) ==
PROVIDERS: Emergency Provider Family Medicine; PCP Family Medicine
DX: N39.0 Urinary tract infection, site not specified (principal); I25.10 Atherosclerotic heart disease of native coronary artery without angina pectoris; I50.9 Heart failure, unspecified
CPT/HCPCS: 51702; 36415; 71045; 80048; 81001; 83880; 84484; 85025; 87086; 87186; 93005; 96372; 99285; A9270; J0696

== ENCOUNTER 2025-02-07 14:17 | Emergency (ER) | payer MEDICARE, BC, SELFPAY ==
[2025-02-07 14:23] VITALS: BP 136/82; PULSE 92; RESP 20; TEMP 36.1; O2SAT 99; BMI 25.1
--- NOTE | 2025-02-07 15:01 | ED.GENADULT ---
HPI - General Adult General Chief complaint: Urogenital Problems, Male Stated complaint: Catheter bag isn't draining Time Seen by Provider: 02/07/25 14:21 History of Present Illness HPI narrative: Patient was here earlier today and had a catheter placed for urinary retention. He is concerned may not be working right. There does appear to be urine that appears clear in the leg bag as well as in the tube. It is not bloody there is no clotting. He has got about 70 mL in his bladder with a bladder scan. He has not any pain or discomfort. Related Data Home Medications ?Medication ?Instructions ?Recorded ?Confirmed carvedilol 12.5 mg tablet 6.25 mg PO BID 03/13/22 09/14/23 clonidine HCl 0.1 mg tablet 0.1 mg PO Q12H PRN 03/13/22 09/14/23 clopidogrel 75 mg tablet 75 mg PO DAILY 03/13/22 09/14/23 pramipexole 0.5 mg tablet 0.5 mg PO HS 03/13/22 09/14/23 atorvastatin 80 mg tablet 80 mg PO HS 05/29/22 09/14/23 calcium carb-magnesium carb 400 2 tab PO HS 05/29/22 09/14/23 mg-200 mg tablet nitroglycerin 0.4 mg sublingual 0.4 mg sublingual Q5M PRN chest 05/29/22 09/14/23 tablet pain omeprazole 40 mg capsule,delayed 40 mg PO DAILY 05/29/22 09/14/23 release quetiapine 25 mg tablet 25 mg PO HS 05/29/22 09/14/23 sodium chloride 1,000 mg soluble 500 mg PO BID 05/29/22 09/14/23 tablet magnesium oxide 400 mg (241.3 mg 400 mg PO DAILY 09/12/23 09/14/23 magnesium) tablet melatonin 3 mg capsule 3 mg PO DAILY 09/12/23 09/14/23 multivitamin 1 tab PO DAILY 09/12/23 09/14/23 Previous Rx's ?Medication ?Instructions ?Recorded potassium chloride 10 mEq 20 meq (2 x 10 mEq) PO BIDWM #60 06/01/22 capsule,extended release caps torsemide 20 mg tablet 20 mg PO DAILY@0800 #30 tabs 06/01/22 hydrocodone 5 mg-acetaminophen 325 1 tab PO Q6H PRN pain #10 tabs 09/14/23 mg tablet sennosides 8.6 mg capsule (senna) 8.6 mg PO DAILY PRN constipation 09/14/23 #90 caps nitrofurantoin 100 mg PO BID #10 caps 02/07/25 monohydrate/macrocrystals 100 mg capsule (Macrobid) Allergies Allergy/AdvReac Type Severity Reaction Status Date / Time amitriptyline (From Elavil) Allergy Verified 09/20/23 20:07 amlodipine Allergy low Verified 09/20/23 20:07 pressures ciprofloxacin Allergy severe Verified 09/20/23 20:07 hives citalopram (From Celexa) Allergy Diarrhea Verified 09/20/23 20:07 erythromycin base Allergy Verified 09/20/23 20:07 escitalopram (From Lexapro) Allergy Depression Verified 09/20/23 20:07 ezetimibe (From Zetia) Allergy Nausea Verified 09/20/23 20:07 hydrochlorothiazide Allergy cramps Verified 09/20/23 20:07 lactose Allergy GI upset Verified 09/20/23 20:07 Penicillins Allergy Hives Verified 09/20/23 20:07 rosuvastatin (From Crestor) Allergy Rash Verified 09/20/23 20:07 sulindac Allergy sedation Verified 09/20/23 20:07 co Q10 Allergy myalgia Uncoded 09/12/23 09:20 Review of Systems Status of ROS: Reports: 6 or more systems reviewed and unremarkable except as noted in History and below [facility] Medical History 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 - Poisoning by other antidysrhythmic drugs, accidental (unintentional), initial encounter (ICD-10) Inguinal hernia of left side without obstruction or gangrene ?K40.90 - Unilateral inguinal hernia, without obstruction or gangrene, not specified as recurrent (ICD-10) BPH (benign prostatic hyperplasia) ?N40.0 - Benign prostatic hyperplasia without lower urinary tract symptoms (ICD-10) Chronic hyponatremia ?E87.1 - Hypo-osmolality and hyponatremia (ICD-10) History of hallucinations ?Z87.898 - Personal history of other specified conditions (ICD-10) GERD (gastroesophageal reflux disease) ?K21.9 - Gastro-esophageal reflux disease without esophagitis (ICD-10) Critical limb ischemia with history of revascularization of same extremity ?I70.229 - Atherosclerosis of [place] arteries of extremities with rest pain, unspecified extremity (ICD-10) ?Z98.890 - Other specified postprocedural states (ICD-10) History of Mobitz type II atrioventricular block ?Z86.79 - Personal history of other diseases of the circulatory system (ICD-10) Non-STEMI (non-ST elevated myocardial infarction) ?I21.4 - Non-ST elevation (NSTEMI) myocardial infarction (ICD-10) Peripheral artery disease ?I73.9 - Peripheral vascular disease, unspecified (ICD-10) Peripheral neuropathy ?G62.9 - Polyneuropathy, unspecified (ICD-10) Coronary artery disease ?I25.10 - Atherosclerotic heart disease of [place] coronary artery without angina pectoris (ICD-10) Lactose intolerance ?E73.9 - Lactose intolerance, unspecified (ICD-10) Mixed hyperlipidemia ?E78.2 - Mixed hyperlipidemia (ICD-10) Carotid artery stenosis ?I65.29 - Occlusion and stenosis of unspecified carotid artery (ICD-10) Chronic kidney disease ?N18.9 - Chronic kidney disease, unspecified (ICD-10) Generalized anxiety disorder ?F41.1 - Generalized anxiety disorder (ICD-10) RLS (restless legs syndrome) ?G25.81 - Restless legs syndrome (ICD-10) Surgical History S/P TURP ?Z90.79 - Acquired absence of other genital organ(s) (ICD-10) S/P rotator cuff repair ?Z98.890 - Other specified postprocedural states (ICD-10) S/P placement of cardiac pacemaker ?Z95.0 - Presence of cardiac pacemaker (ICD-10) History of total hip replacement ?Z96.649 - Presence of unspecified artificial hip joint (ICD-10) History of CEA (carotid endarterectomy) ?Z98.890 - Other specified postprocedural states (ICD-10) S/P femoral-popliteal bypass surgery ?Z95.828 - Presence of other vascular implants and grafts (ICD-10) S/P coronary artery stent placement ?Z95.5 - Presence of coronary angioplasty implant and graft (ICD-10) History of laparoscopic cholecystectomy ?Z90.49 - Acquired absence of other specified parts of digestive tract (ICD-10) S/P CABG x 3 ?Z95.1 - Presence of aortocoronary bypass graft (ICD-10) History of coronary angioplasty ?Z98.61 - Coronary angioplasty status (ICD-10) Social History Narrative: Lives in [place]. Independent. 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 Quit date 1988. No alcohol use. Retired from [employer]. . Five adult children. Highest level of school completed/degree received: 12th grade, no diploma Smoking Status: Former smoker How often do you have a drink containing alcohol: never AUDIT-C Alcohol total score: 0 Non-prescribed substance use: denies use Caffeine: Yes service: No Exam Narrative: Exam Narrative: Catheter appears in place, there is urine in the tube but that appears clear no clotting, there is flow of urine into the leg bag. Const: Vital Signs, click to edit/add: Vital Signs - 24 hr 02/07/25 14:23 Temperature 96.9 F L Pulse Rate [Pulse Oximeter] 92 Respiratory Rate 20 Blood Pressure [Ri ght Upper Arm] 136/82 Pulse Oximetry 99 Oxygen Delivery Me thod Room Air Course Vital Signs Vital signs: Initial Vital Signs Temperature 96.9 F L 02/07/25 14:23 Temperature Source Temporal Artery Scan 02/07/25 14:23 Pulse Rate 92 02/07/25 14:23 Respiratory Rate 20 02/07/25 14:23 Blood Pressure 136/82 02/07/25 14:23 Blood Pressure Mean 100 02/07/25 14:23 Pulse Oximetry 99 02/07/25 14:23 Oxygen Delivery Method Room Air 02/07/25 14:23 Vital Signs Temperature 96.9 F L 02/07/25 14:23 Pulse Rate 92 02/07/25 14:23 Respiratory Rate 20 02/07/25 14:23 Blood Pressure 136/82 02/07/25 14:23 Pulse Oximetry 99 02/07/25 14:23 Oxygen Delivery Method Room Air 02/07/25 14:23 Temperature 96.9 F L 02/07/25 14:23 Pulse Rate 92 02/07/25 14:23 Respiratory Rate 20 02/07/25 14:23 Blood Pressure 136/82 02/07/25 14:23 Pulse Oximetry 99 02/07/25 14:23 Oxygen Delivery Method Room Air 02/07/25 14:23 Medical Decision Making MDM Narrative Medical decision making narrative: The Lopez catheter and leg bag appear to be functioning normally, it is draining his bladder, he did have 500 mL in his bladder before catheter placement. I think at this time to simply observe let him go home observe this normal diet and fluid intake. Recheck if needed. Discharge Plan Discharge Clinical Impression: Acute urinary retention Patient Disposition: Home, Self-Care Condition: Stable Additional Instructions: Observe, return if any concern or problem. Follow the instructions to take care of the leg bag and empty it. Prescriptions: No Action clonidine HCl 0.1 mg tablet 0.1 mg PO Q12H PRN Rx Instructions: for hypertensive urgency, 170/90 or greater carvedilol 12.5 mg tablet 6.25 mg PO BID clopidogrel 75 mg tablet 75 mg PO DAILY pramipexole 0.5 mg tablet 0.5 mg PO HS atorvastatin 80 mg tablet 80 mg PO HS nitroglycerin 0.4 mg tablet, sublingual 0.4 mg sublingual Q5M PRN (Reason: chest pain) omeprazole 40 mg capsule,delayed release(DR/EC) 40 mg PO DAILY quetiapine 25 mg tablet 25 mg PO HS calcium carb-magnesium carb 400-200 mg tablet 2 tab PO HS sodium chloride 1,000 mg tablet,soluble 500 mg PO BID potassium chloride 10 mEq Capsule, Extended Release 20 meq PO BIDWM Qty: 60 0RF torsemide 20 mg Tablet 20 mg PO DAILY@0800 Qty: 30 0RF nitrofurantoin monohyd/m-cryst [Macrobid] 100 mg capsule 100 mg PO BID Qty: 10 0RF Rx Instructions: must administer with a meal/food magnesium oxide 400 mg (241.3 mg magnesium) tablet 400 mg PO DAILY melatonin 3 mg capsule 3 mg PO DAILY multivitamin Tablet 1 tab PO DAILY hydrocodone-acetaminophen 5-325 mg tablet 1 tab PO Q6H PRN (Reason: pain) Qty: 10 0RF senna 8.6 mg capsule 8.6 mg PO DAILY PRN (Reason: constipation) Qty: 90 0RF Follow Up/Referrals: Monico Modi MD [Primary Care Provider, Family Practice] Stand Alone Forms: [facility] Info Instructions
== END 2025-02-07 15:25 | disposition home or self-care (01) ==
PROVIDERS: Emergency Provider Family Medicine; PCP Family Medicine
DX: N39.0 Urinary tract infection, site not specified (principal); I50.9 Heart failure, unspecified; I25.10 Atherosclerotic heart disease of native coronary artery without angina pectoris
CPT/HCPCS: 99283; 99284

== ENCOUNTER 2025-02-15 03:54 | Outpatient (CLI) | payer MEDICARE, BC, SELFPAY | END 2025-02-15 03:55 | disposition home or self-care (01) | LOC: AMB 02-17 10:26 | PROVIDERS: PCP Family Medicine; Visit Provider Family Medicine | DX: R06.02 Shortness of breath (principal); R53.1 Weakness | CPT/HCPCS: A0425; A0427 ==

== ENCOUNTER 2025-02-15 04:28 | Inpatient (IN) | payer MEDICARE, BC, SELFPAY ==
[2025-02-15] VITALS (16 sets, daily range): BP systolic 128–164; BP diastolic 64–123; PULSE 76–92; RESP 10–22; TEMP 36.3–36.6; O2SAT 92–99; BMI 25.0
--- OUTSIDE RECORDS SUMMARY | 2025-02-15 04:31 | XMS_ITS | Clinical Summary ---
Author Organization [facility] Address [address] [place] [address] Care Team Providers Care Step Finisher Name Role Phone Yong Siddiqi MD Unavailable [phone] FlyDillan stone MD Unavailable Rowan vailable Monico [...] Constipation. 1 jar 12 12/16/19 21 Active Simethicone 125 mg capsuleIndication s:Bloating Take 1 Capsule (125 mg) by mouth 4 times daily if needed for Flatulence. Max dose: 500 mg per 24 hrs 100 Capsule 6 04/28/20 23 Active cloNIDine HCL (CATAPRES) 0.1 mg tabletIndications :HTN (hypertension) TAKE 1 TABLET BY MOUTH NEEDED FOR BLOOD PRESSURE GREATER THAN 170/90. MAY REPEAT IN 1 HOUR DIRECTED. MAXIMUM DOSE TWO TABLETS IN 24 HOURS. 30 Tablet 04/28/20 23 Active Sennosides 8.6 mg cap Take 8.6 mg by mouth once daily. 09/14/19 24 Active nitroglycerin (NITROSTAT) 0.4 mg sublingual tabletIndications :Chest pain, unspecified DISSOLVE ONE TABLET UNDER TONGUE EVERY 5 MINUTES NEEDED FOR CHEST PAIN FOR UP TO 3 TIMES, IF NO RELIEF, CALL 911.If patient requesting greater than 25 doses in 30 days, to provider to authorize 25 Tablet 10/02/19 24 Active hydrocortisone 1 % creamIndications: Encounter for cardioversion procedure Apply topically to affected area(s) 4 times daily if needed (cardioversio n procedure). 11/14/19 24 Active aspirin (ECOTRIN) 81 mg enteric coated tablet Take 1 Tablet (81 mg) by mouth once daily with a meal. 01/09/20 24 Active Catheter miscIndications:R etention of urine, unspecified As directed. 144 Each 11 05/16/20 24 Active magnesium oxide (MAG-OX 400) 400 mg tabletIndications :Low magnesium level TAKE ONE TABLET (400 MG) BY MOUTH ONCE DAILY IN THE EVENING 90 Tablet 3 07/18/19 25 Active apixaban (ELIQUIS) 5 mg tabletIndications :Atrial flutter, unspecified type (HC) Take 1 Tablet (5 mg) by mouth two times daily. 180 Tablet 07/24/19 25 Active melatonin 3 mg tabletIndications :Insomnia due to medical condition Take 1 Tablet (3 mg) by mouth at bedtime if needed for Sleep. 90 Tablet 3 07/24/19 25 Active carvediloL (Coreg) 12.5 mg tabletIndications :Essential hypertension,NSVT (nonsustained ventricular tachycardia) (HC) Take 1 Tablet (12.5 mg) by mouth two times daily. You are due for a follow up with cardiology. Please call [phone] to schedule before more refills can be authorized. 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 Take in the evening in addition to 12.5 mg tablet of Coreg. You are due for a follow up with cardiology. Please call [phone] to schedule before more refills can be authorized. 90 Tablet 01/07/20 25 Active atorvastatin (LIPITOR) 80 mg tabletIndications :Hyperlipidemia, unspecified hyperlipidemia type Take 1 Tablet (80 mg) by mouth once daily with evening meal. 90 Tablet 1 01/14/20 25 Active omeprazole (PRILOSEC) 40 mg Delayed-Release capsuleIndication s:Gastroesophagea l reflux disease, unspecified whether esophagitis present Take 1 Capsule (40 mg) by mouth once daily before a meal. 90 Capsule 2 01/14/20 25 Active potassium chloride (K-TAB) 10 mEq extended-release tabletIndications :HFrEF (heart failure with reduced ejection fraction) (HC) Take 1 Tablet (10 mEq) by mouth once daily. 90 Tablet 1 01/14/20 25 Active torsemide (DEMADEX) 20 mg tabletIndications :HFrEF (heart failure with reduced ejection fraction) (HC) Take 1 Tablet (20 mg) by mouth once daily. 90 Tablet 1 01/14/20 25 Active pramipexole (MIRAPEX) 0.5 mg tabletIndications :RLS (restless legs syndrome) TAKE ONE TABLET (0.5 MG) BY MOUTH EVERY DAY AT BEDTIME 90 Tablet 1 02/02/20 25 Active pramipexole (MIRAPEX) 0.5 mg tabletIndications :RLS (restless legs syndrome) TAKE ONE TABLET (0.5 MG) BY MOUTH EVERY DAY AT BEDTIME 30 Tablet 01/02/20 25 2024 Discontinued Active Problems Patient Care Coordination No te Formatting of this note migh t be different from the original. HF/Structural/Prevention Research Eligibility Review Date: 01/22/20 Upcoming Visit Location: [facility] Age: 79 y.o. 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) use of anticoagulants 09/15/2009 03/08/2011 Overview (09/15/2009): INR Goal Range: 1.5 - 20 Diarrhea 02/17/2009 03/08/2011 Overview (02/17/2009): -with Pletal PVD (peripheral vascular disease) 11/26/2008 03/08/2011 PAD (Peripheral Artery Disea se) with claudication--s/p L iliac stent 98;BRAN MIXER L popliteal 02-17-09 10/28/2008 12/13/2011 Overview (11/24/2011): S/p Left common femoral endarterectomy and R SFA stent (11/23/2011) Other dyspnea and respiratory abnormality 03/17/2008 03/08/2011 Dizziness and giddiness 01/22/200808/04 Shortness of breath 01/22/2008 03/08/20 11 Esophageal reflux 07/10/2007 07/26/2012 Overview (07/02/2013): EGD 06/2009 benign gastric polyps EGD 06/2013 benign gastric polyps Cor Athrscl-Uns Vessel 10/03 Overview (02/17/2009): -prior DE's in 1995, 2000 -CABG 1995 -Multiple PCI with 8 stents, last 03/12 -Myoview in 08/11 with fixed inferior defect, minimal urbano-infarct ischemia, LVEF 60% Pure hypercholesterolemia Unspecified Essential Hypertension 12/13/2011 Other and Unspecified Hyperlipidemia 02/17/2012 Critical limb ischemia of le ft lower extremity 09/26/2023 Encounters Date Type Department Care Team Description 02/12/2025 9:00 AM CDT Nurse/Clinic Staff Only [facility] [address] [place] [address] Removal (Lopez cath) 02/12/2025 Nurse Triage [facility] [address] [place] [address] Monico Modi MD Questions 02/12/2025 Travel 02/07/2025 Orders Only [facility] Scanner 1 scan: (1-Ord) [place], CHEST 1V PORTABLE, 02/07/2025 02/07/2025 Nurse Triage [facility] [address] [place] [address] Monico Modi MD Urinary Problem 01/30/2025 Refill [facility] [address] [place] [address] Monico Modi MD Refill Request (Pramipexole) 01/13/2025 10:05 AM CDT Office Visit [facility] [address] [place] [address] Monico Modi MD Follow Up (Routine 6 month follow up); Fatigue (Falls asleep often, goes to bed early) 01/13/2025 Travel 01/08/2025 [place]phone [facility] [address] [facility] [address] [place] [phone] Costa Perla, LIZZ Device Check (PACEMAKER EVALUATION ) 01/07/2025 Telephone [facility] [address] [place] [address] Christelle Blanchard RN Device Check (AF alert ) 01/06/2025 [facility] [address] [place] [address] [address] [place] [address] Bruce Mehta MD Refill Request 12/30/2024 Refill [facility] [address] [place] [address] Monico Modi MD Refill Request (Pramipexole) 12/12/2024 9:30 AM CDT Office [place] [facility] [address] [place] [address] Monster Morales MD CV Vascular Est (1 year follow up; carotid stenosis, lower extremity PVD. 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 Gender Identity Not on file Sexual Orientation Not on file Occupation Industry Job Start Date Job End Date retired, worked at [employer] Not on file Not on f ile [...] 162.6 cm (5' 4) 07/18/2024 9:22 AM ETHNOLOGY PROFESSOR Body Mass Index 26.74 07/18/2024 9:22 AM ETHNOLOGY PROFESSOR Plan of Treatment Upcoming Encounters Date Type Department Care Team (Late st Contact Info) Description 02/21/2025 1:15 PM CDT Office Visit [facility] [address] [place] [address] Monico Modi MD [address] [place] [address] 02/21/2025 3:30 PM CDT Cardiac Device Check [facility] [address] [place] [address] 02/21/2025 4:00 PM CDT Office Visit [facility] [address] [place] [address] Chaz Olivo MD [address] [place] [address] 04/29/2025 9:00 AM ETHNOLOGY PROFESSOR Office Visit [facility] [address] [place] [phone] Brittney Francisco MD [address] [place] [address] 07/17/2025 10:15 AM ETHNOLOGY PROFESSOR Orders Only [facility] [address] [place] [address] Lab, [place] 07/21/2025 10:05 AM ETHNOLOGY PROFESSOR Office Visit [facility] [address] [place] [address] Monico Modi MD [address] [place] [address] Health Maintenance Due Date Last Done Comments [...] Rodgers MD Medical Devices Implanted Type Area Solar Energy System Installer Device Identifier Shelf Expiration Date Model / Serial / Lot Patch Vasc 0.8x8cm Biological Peripatch - [id number] Implanted:Qty: 1 on 11/23/2011 by Annemarie King MD at [facility] Left: Femoral Artery [employer] 03/24/2014 0.8P8# / / [id number] Urbano-Guard [id number] - [id number] Implanted:Qty: 1 on 05/24/2012 by Annemarie King MD at [facility] Right: Femoral Artery [employer] 11/25/2015 [id number]# / / [id number] Patch Vasc 0.8x8cm Xenosure Biological Pericardial - [id number] Implanted:Qty: 1 on 08/12/2016 by Monster Morales MD at [facility] Right: Carotid Artery [employer] 03/02/2022 0.8P8# / / [id number] Procedures Procedure Name Priority Date/Time Associated Diagnosis Comments SCAN-RADIOLOGY REPORT 02/07/2025 12:00 AM CDT BASIC METABOLIC PANEL Routine 01/13/2025 10:52 AM [...] disease) from Last 3 Months Results * SCAN-RADIOLOGY REPORT (02/07/2025 12:00 AM CDT) Anatomical Region Laterality Modality Other us Scanner OTHER Final Result * (ABNORMAL) HEMOGLOBIN A1C (01/13/2025 10:52 AM CDT) HEMOGLOBIN A1C 6.3(H) <5.7 % [facility]-Wilner Downey Comment: For someone without known diabetes, a [...] CDT Monico Modi MD CHEMISTRY Final Result [facility] [address] [place] [address], [facility] [address] [place] [address] * (ABNORMAL) BASIC METABOLIC PANEL (01/13/2025 10:52 AM CDT) Pathologist [facility] GLUCOSE 112(H) 65 - 99 mg/dL [facility] Shayan Comment: Fasting reference interval For someone without known diabetes, a glucose value between 100 and 125 mg/dL is consistent with prediabetes and should be confirmed with a follow-up test. UREA NITROGEN (BUN) 21 7 - 25 mg/dL [facility]X-Serious [facility] Shayan CREATININE 1.42(H) 0.70 - 1.22 mg/dL [facility] Shayan EGFR 49(L) > OR = [...] CDT Monico Modi MD CHEMISTRY Final Result [facility] [address] [place] [address], [place] [phone] [facility] [address] [place] [address] * US CAROTID DUPLEX BILATERAL (12/10/2024 3:13 PM CDT) Anatomical Region Laterality Modality CAROTID, NECK Ultrasound 12/10/2024 1:22 PM CDT Narrative 12/10/2024 5:29 PM CDT VASCULAR ULTRASOUND REPORT ANISH COUGHLIN : 1940 Study Date: 12/10/2024 1:22:55 PM Age: 84 years Tech: PETERSON Gender: M Referring MD: MONSTER MORALES Site: [facility] Study performed: Carotid Indication for Study: hx [...] Accreditation Commission (IAC/Vascular), [email or web address] Report generated by [employer]. Final Procedure Note Monster Morales MD - 12/10/2024 VASCULAR ULTRASOUND REPORT ANISH COUGHLIN : 1940 Study Date: 12/10/2024 1:22:55 PM Age: 84 years Tech: BVB Gender: M Referring MD: MONSTER MORALES Site: [facility] Study performed: Carotid Indication for Study: hx [...] theIntersocietal Accreditation Commission (IAC/Vascular),[email or web address] Report generated by [employer]. Final us Monster Morales MD US Final Result * US ARTERIAL LOWER EXTREMITY W JORGE BILATERAL (12/10/2024 3:13 PM CDT) Anatomical Region Laterality Modality LEGS Ultrasound 12/10/2024 12:3 9 PM CDT Narrative 12/10/2024 5:43 PM CDT VASCULAR ULTRASOUND REPORT ANISH COUGHLIN : 1940 Study Date: 12/10/2024 12:39:54 PM Age: 84 years Tech: BVB Gender: M Referring MD: MONSTER WALLACEHENSON Site: [facility] Study performed: Lower extremity duplex US, resting JORGE, TBI, (bilateral). Indication for study: f/u right SFA stent and left PSYCHOLOGIST PRIVATE PRACTICE to BRAN MIXER bypass TECHNIQUE: Lower/upper extremity arteries were examined [...] identify due to calcification. 6. Patent left PSYCHOLOGIST PRIVATE PRACTICE to BRAN MIXER bypass graft with multiphasic signals and no [...] RIGHT Velocity cm/s Phasicity +--------+ + + PSYCHOLOGIST PRIVATE PRACTICE PRX 95 multiphasic +--------+ + + PSYCHOLOGIST PRIVATE PRACTICE DST 72 multiphasic +--------+ + + PFA 93 multiphasic +--------+ + + SFA PRX 48 multiphasic +--------+ + + SFA MID 0 occluded +--------+ + + SFA DST 0 occluded (stent) +--------+ + + MAT PRX 0 occluded +--------+ + + MAT DST 0 occluded +--------+ + + BRAN MIXER DST 39 monophasic +--------+ + + DPA 0 occluded +--------+ + + +-------+ + + LEFT Velocity cm/s Phasicity +-------+ + + PSYCHOLOGIST PRIVATE PRACTICE PRX 240 multiphasic +-------+ + + PSYCHOLOGIST PRIVATE PRACTICE DST 60 multiphasic +-------+ + + PFA 50 multiphasic +-------+ + + BRAN MIXER DST 21 monophasic +-------+ + + DPA 24 monophasic +-------+ + + Criteria: Stenosis V. Ratio Mild <50% <2.0 Moderate 50-74% > or = 2.0 Severe 75-99% > or = 4.0 Occluded 100% no detectable flow Pressures +-----+ +--------+ +-----+ RIGHT (mmHg) LEFT (mmHg) +-----+ +--------+ +-----+ Index 167 Brachial 162 Index +-----+ +--------+ +-----+ 0.95 159 BRAN MIXER +-----+ +--------+ +-----+ 0.25 42 Digit 1 [...] + +--------+-----+ BYPASS GRAFT Left graft type: PSYCHOLOGIST PRIVATE PRACTICE to BRAN MIXER. +---------+ + +--------+-----+ LEFT Velocity cm/s Phasicity [...] Accreditation Commission (IAC/Vascular), [email or web address]/vascular Report generated by [employer]. Final Procedure Note Monster Morales MD - 12/10/2024 VASCULAR ULTRASOUND REPORT ANISH COUGHLIN : 1940 Study Date: 12/10/2024 12:39:54 PM Age: 84 years Tech: BVB Gender: M Referring MD: MONSTER MORALES Site: [facility] Study performed: Lower extremity duplex US, resting JORGE, TBI,(bilateral). Indication for study: f/u right SFA stent and left PSYCHOLOGIST PRIVATE PRACTICE to BRAN MIXER bypass TECHNIQUE: Lower/upper extremity arteries were examined [...] identify due to calcification. 6. Patent left PSYCHOLOGIST PRIVATE PRACTICE to BRAN MIXER bypass graft with multiphasic signals and noevidence [...] RIGHT Velocity cm/s Phasicity +--------+ + + PSYCHOLOGIST PRIVATE PRACTICE PRX 95 multiphasic +--------+ + + PSYCHOLOGIST PRIVATE PRACTICE DST 72 multiphasic +--------+ + + PFA 93 multiphasic +--------+ + + SFA PRX 48 multiphasic +--------+ + + SFA MID 0 occluded +--------+ + + SFA DST 0 occluded (stent) +--------+ + + MAT PRX 0 occluded +--------+ + + MAT DST 0 occluded +--------+ + + BRAN MIXER DST 39 monophasic +--------+ + + DPA 0 occluded +--------+ + + +-------+ + + LEFT Velocity cm/s Phasicity +-------+ + + PSYCHOLOGIST PRIVATE PRACTICE PRX 240 multiphasic +-------+ + + PSYCHOLOGIST PRIVATE PRACTICE DST 60 multiphasic +-------+ + + PFA 50 multiphasic +-------+ + + BRAN MIXER DST 21 monophasic +-------+ + + DPA 24 monophasic +-------+ + + Criteria: Stenosis V. Ratio Mild <50% <2.0 Moderate 50-74% > or = 2.0 Severe 75-99% > or = 4.0 Occluded 100% no detectable flow Pressures +-----+ +--------+ +-----+ RIGHT (mmHg) LEFT (mmHg) +-----+ +--------+ +-----+ Index 167 Brachial 162 Index +-----+ +--------+ +-----+ 0.95 159 BRAN MIXER +-----+ +--------+ +-----+ 0.25 42 Digit 1 [...] + +--------+-----+ BYPASS GRAFT Left graft type: PSYCHOLOGIST PRIVATE PRACTICE to BRAN MIXER. +---------+ + +--------+-----+ LEFT Velocity cm/s Phasicity [...] theIntersocietal Accreditation Commission (IAC/Vascular),[email or web address] Report generated by [employer]. Final us Monster Morales MD Final Result from Last 3 Months Insurance MEDICARE PB ONLY MEDICARE PART B HB ONLY MEDICARE PART A HB ONLY Member Subscriber Plan / Payer (Ef fective 2004-Present) Name:Anish Coughiln Member ID:[id number] Relation to Subscriber:Self Name:Anish Coughlin Subscriber ID:[id number] Payer ID:Not on file Group ID:Not on file Type:Not on file Address: ATTN: CLAIMS [address] [facility] HC MEDICARE PPS [facility] Advance Directives Documents on File Type Date Recorded Patient Explosive Operator Expl anation Healthcare Directive 08/04/2009 HEALTH CARE [...] Code Status Discussion: Not Discussed Care Teams Step Finisher Relationship Specialty Start Date End Date Monico Modi MD [address] [place] [address] PCP - General Family Practice 11/10/16 Yong Siddiqi MD [address] [place] [address] Gastroenterology 05/20/11 Dillan Eubanks MD [address] [place] [address] Cardiovascular Disease 05/20/11
--- NOTE | 2025-02-15 04:44 | ED.GENADULT ---
HPI - General Adult General Chief complaint: Shortness of Breath/Dyspnea Stated complaint: shortness of breath Time Seen by Provider: 02/15/25 04:44 History of Present Illness HPI narrative: SOB for 2 weeks , worse laying down, feels exhausted. 02/07 was seen for UTI, macrobid finished. states he also wants the doctor to look at his abdominal pain he has been having for years. ems iv R kevin 18g, bs 147. 84-year-old man presenting to the emergency department with concern of exhaustion. Arrives via EMS. He has also been short of breath. He also describing some lower abdominal pain which has been going on for years. Does have a history of self cathing for years he says and this abdominal pain in the lower abdomen been present for a long time as well. Says he has been asking for doctors to have a look at it. It is unclear to me from conversation what has been done to investigate his abdominal pain in the past. However, recently seen in this emergency department about 8 days ago and had a catheter placed for urinary retention. Was also treated for urinary tract infection at that time with nitrofurantoin. Urine culture did grow out Staphylococcus lentis but only [phone] colonies which was sensitive to nitrofurantoin. Has completed this course. No new cough. No fever. Says his energy is just sapped. Is passing a lot of gas. Denies constipation in fact would be worried more about having a little liquid stool as he passes gas. Has a history also of episodes of dyspnea. Will feel like he is choking on his tongue as described by his son or choking on mucus. He describes laying down being short of breath as well. Related Data Home Medications ?Medication ?Instructions ?Recorded ?Confirmed carvedilol 12.5 mg tablet 6.25 mg PO BID 03/13/22 09/14/23 clonidine HCl 0.1 mg tablet 0.1 mg PO Q12H PRN 03/13/22 09/14/23 clopidogrel 75 mg tablet 75 mg PO DAILY 03/13/22 09/14/23 pramipexole 0.5 mg tablet 0.5 mg PO HS 03/13/22 09/14/23 atorvastatin 80 mg tablet 80 mg PO HS 05/29/22 09/14/23 calcium carb-magnesium carb 400 2 tab PO HS 05/29/22 09/14/23 mg-200 mg tablet nitroglycerin 0.4 mg sublingual 0.4 mg sublingual Q5M PRN chest 05/29/22 09/14/23 tablet pain omeprazole 40 mg capsule,delayed 40 mg PO DAILY 05/29/22 09/14/23 release quetiapine 25 mg tablet 25 mg PO HS 05/29/22 09/14/23 sodium chloride 1,000 mg soluble 500 mg PO BID 05/29/22 09/14/23 tablet magnesium oxide 400 mg (241.3 mg 400 mg PO DAILY 09/12/23 09/14/23 magnesium) tablet melatonin 3 mg capsule 3 mg PO DAILY 09/12/23 09/14/23 multivitamin 1 tab PO DAILY 09/12/23 09/14/23 Previous Rx's ?Medication ?Instructions ?Recorded potassium chloride 10 mEq 20 meq (2 x 10 mEq) PO BIDWM #60 06/01/22 capsule,extended release caps torsemide 20 mg tablet 20 mg PO DAILY@0800 #30 tabs 06/01/22 hydrocodone 5 mg-acetaminophen 325 1 tab PO Q6H PRN pain #10 tabs 09/14/23 mg tablet sennosides 8.6 mg capsule (senna) 8.6 mg PO DAILY PRN constipation 09/14/23 #90 caps Allergies Allergy/AdvReac Type Severity Reaction Status Date / Time amitriptyline (From Elavil) Allergy Verified 09/20/23 20:07 amlodipine Allergy low Verified 09/20/23 20:07 pressures ciprofloxacin Allergy severe Verified 09/20/23 20:07 hives citalopram (From Celexa) Allergy Diarrhea Verified 09/20/23 20:07 erythromycin base Allergy Verified 09/20/23 20:07 escitalopram (From Lexapro) Allergy Depression Verified 09/20/23 20:07 ezetimibe (From Zetia) Allergy Nausea Verified 09/20/23 20:07 hydrochlorothiazide Allergy cramps Verified 09/20/23 20:07 lactose Allergy GI upset Verified 09/20/23 20:07 Penicillins Allergy Hives Verified 09/20/23 20:07 rosuvastatin (From Crestor) Allergy Rash Verified 09/20/23 20:07 sulindac Allergy sedation Verified 09/20/23 20:07 co Q10 Allergy myalgia Uncoded 09/12/23 09:20 Review of Systems Status of ROS: Reports: 6 or more systems reviewed and unremarkable except as noted in History and below [facility] Medical History 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 - Poisoning by other antidysrhythmic drugs, accidental (unintentional), initial encounter (ICD-10) Inguinal hernia of left side without obstruction or gangrene ?K40.90 - Unilateral inguinal hernia, without obstruction or gangrene, not specified as recurrent (ICD-10) BPH (benign prostatic hyperplasia) ?N40.0 - Benign prostatic hyperplasia without lower urinary tract symptoms (ICD-10) Chronic hyponatremia ?E87.1 - Hypo-osmolality and hyponatremia (ICD-10) History of hallucinations ?Z87.898 - Personal history of other specified conditions (ICD-10) GERD (gastroesophageal reflux disease) ?K21.9 - Gastro-esophageal reflux disease without esophagitis (ICD-10) Critical limb ischemia with history of revascularization of same extremity ?I70.229 - Atherosclerosis of [place] arteries of extremities with rest pain, unspecified extremity (ICD-10) ?Z98.890 - Other specified postprocedural states (ICD-10) History of Mobitz type II atrioventricular block ?Z86.79 - Personal history of other diseases of the circulatory system (ICD-10) Non-STEMI (non-ST elevated myocardial infarction) ?I21.4 - Non-ST elevation (NSTEMI) myocardial infarction (ICD-10) Peripheral artery disease ?I73.9 - Peripheral vascular disease, unspecified (ICD-10) Peripheral neuropathy ?G62.9 - Polyneuropathy, unspecified (ICD-10) Coronary artery disease ?I25.10 - Atherosclerotic heart disease of [place] coronary artery without angina pectoris (ICD-10) Lactose intolerance ?E73.9 - Lactose intolerance, unspecified (ICD-10) Mixed hyperlipidemia ?E78.2 - Mixed hyperlipidemia (ICD-10) Carotid artery stenosis ?I65.29 - Occlusion and stenosis of unspecified carotid artery (ICD-10) Chronic kidney disease ?N18.9 - Chronic kidney disease, unspecified (ICD-10) Generalized anxiety disorder ?F41.1 - Generalized anxiety disorder (ICD-10) RLS (restless legs syndrome) ?G25.81 - Restless legs syndrome (ICD-10) Surgical History S/P TURP ?Z90.79 - Acquired absence of other genital organ(s) (ICD-10) S/P rotator cuff repair ?Z98.890 - Other specified postprocedural states (ICD-10) S/P placement of cardiac pacemaker ?Z95.0 - Presence of cardiac pacemaker (ICD-10) History of total hip replacement ?Z96.649 - Presence of unspecified artificial hip joint (ICD-10) History of CEA (carotid endarterectomy) ?Z98.890 - Other specified postprocedural states (ICD-10) S/P femoral-popliteal bypass surgery ?Z95.828 - Presence of other vascular implants and grafts (ICD-10) S/P coronary artery stent placement ?Z95.5 - Presence of coronary angioplasty implant and graft (ICD-10) History of laparoscopic cholecystectomy ?Z90.49 - Acquired absence of other specified parts of digestive tract (ICD-10) S/P CABG x 3 ?Z95.1 - Presence of aortocoronary bypass graft (ICD-10) History of coronary angioplasty ?Z98.61 - Coronary angioplasty status (ICD-10) Social History Narrative: Lives in [place]. Independent. 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 Previous smoker. Quit date 1988. No alcohol use. Retired from [employer]. . Five adult children. Highest level of school completed/degree received: 12th grade, no diploma Smoking Status: Former smoker How often do you have a drink containing alcohol: never AUDIT-C Alcohol total score: 0 Non-prescribed substance use: denies use Caffeine: Yes service: No Exam Narrative: Exam Narrative: I find him sleeping with his mouth open and had back. Alerts quickly. Hard of hearing and a little difficult to understand. Lungs appear clear. Breathing easily. Distended abdomen. Diffusely tympanitic. Firm but not particularly tender anywhere. No peritoneal signs. Heart with what I thought was a 1/6 systolic murmur but not persistently present. Ectopic beats. Is well-perfused peripherally. No lower extremity edema Const: Vital Signs, click to edit/add: Vital Signs - 24 hr 02/15/25 04:33 02/15/25 05:17 02/15/25 05:48 Temperature 97.9 F Pulse Rate 92 Pulse Rate [Pulse Oximeter] 87 Respiratory Rate 18 18 22 Blood Pressure 144/100 H 154/96 H Blood Pressure [Ri ght Upper Arm] 142/84 H Pulse Oximetry 97 96 Oxygen Delivery Me thod Room Air 02/15/25 06:02 02/15/25 06:15 02/15/25 06:17 Temperature Pulse Rate 84 85 Pulse Rate [Pulse Oximeter] Respiratory Rate 10 L 14 15 Blood Pressure 151/85 H 164/123 H Blood Pressure [Ri ght Upper Arm] Pulse Oximetry 94 97 Oxygen Delivery Me thod 02/15/25 06:47 02/15/25 07:02 Temperature Pulse Rate 91 92 Pulse Rate [Pulse Oximeter] Respiratory Rate 15 12 Blood Pressure 151/93 H 152/92 H Blood Pressure [Ri ght Upper Arm] Pulse Oximetry 98 Oxygen Delivery Me thod Documenting provider has reviewed patient's vital signs: yes Course Vital Signs Vital signs: Initial Vital Signs Temperature 97.9 F 02/15/25 04:33 Temperature Source Temporal Artery Scan 02/15/25 04:33 Pulse Rate 87 02/15/25 04:33 Respiratory Rate 18 02/15/25 04:33 Blood Pressure 142/84 H 02/15/25 04:33 Blood Pressure Mean 103 02/15/25 04:33 Blood Pressure Position Sitting 02/15/25 04:33 Pulse Oximetry 97 02/15/25 04:33 Oxygen Delivery Method Room Air 02/15/25 04:33 Vital Signs Temperature 97.9 F 02/15/25 04:33 Pulse Rate 87 02/15/25 04:33 Respiratory Rate 18 02/15/25 04:33 Blood Pressure 142/84 H 02/15/25 04:33 Pulse Oximetry 97 02/15/25 04:33 Oxygen Delivery Method Room Air 02/15/25 04:33 Temperature 97.9 F 02/15/25 04:33 Pulse Rate 92 02/15/25 07:02 Respiratory Rate 12 02/15/25 07:02 Blood Pressure 152/92 H 02/15/25 07:02 Pulse Oximetry 98 02/15/25 06:47 Oxygen Delivery Method Room Air 02/15/25 04:33 Medications Administered Medications: Discontinued Medications Generic Name Dose Route Start Last Admin Trade Name Hector PRN Reason Stop Dose Admin Sodium Chloride 1,000 mls @ 1,000 mls/hr 02/15/25 06:51 02/15/25 07:48 0.9 % Sodium Chloride 1000 Ml IV 02/15/25 07:50 Infused .Q1H ONE Infusion Medical Decision Making MDM Narrative Medical decision making narrative: Does have a history of CHF and would be worth evaluating for worsening although vitals are certainly reassuring. Look for recurrence of urinary tract infection, electrolyte abnormalities, cardiac event. 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 Abdominal discomfort could be caused by urinary retention. We did bladder scan for 176 mL. Assisted with catheterization. Urinalysis does not look to be infected. Labs returned confirming hyponatremia again here today at 124. History of hyponatremia thought secondary to CHF and diuretics. History of fluid restriction and salt tabs. Nitrofurantoin effect? This did drop from 134 eight days ago. I did give a L of normal saline. Did reach out to daughter and son to try to clarify medications and things going on at home. Unable to reach daughter. The son with home he lives with is not really involved with medications. Discussed this case with hospitalist and appears that would benefit from admission at a minimum for normalization of sodium levels. Medical Records Medical records reviewed: Yes I reviewed the patient's medical records Lab Data Lab results reviewed: Yes I reviewed the patient's lab results Labs: Lab Results 02/15/25 02/15/25 Range/Units 05:20 05:40 WBC 6.63 (4.50-11.00) K/uL RBC 4.16 L (4.30-5.90) m/uL Hgb 12.0 L (13.5-17.5) gm/dL Hct 36.0 L (37.0-53.0) % MCV 87 (80-100) fL MCH 29 (26-34) pg MCHC 33 (32-36) gm/dL RDW Coeff of [place] 14.5 (11.5-15.5) % Plt Count 116 L (140-440) K/uL Neut % (Auto) 68.1 (42.0-72.0) % Lymph % (Auto) 17.8 L (20-44) % [place] % (Auto) 9.4 (0.0-11.0) % Eos % (Auto) 3.9 (0.0-7.0) % Baso % (Auto) 0.6 (0.0-3.0) % Neut # (Auto) 4.52 (1.7-7.0) K/uL Lymph # (Auto) 1.20 (0.90-2.90) K/uL [place] # (Auto) 0.60 (0.00-0.90) K/UL Eos # (Auto) 0.26 (0.00-0.50) K/uL Baso # (Auto) 0.04 (0.00-0.30) K/uL Abs Immat Gran (auto) 0.01 (0.00-0.30) K/uL Imm/Tot Granulo (auto) 0.2 % Sodium 124 L* (135-149) mmol/L Potassium 4.3 (3.6-5.1) mmol/L Chloride 91 L (96-114) mmol/L Carbon Dioxide 25 (20-32) mmol/L Anion Gap 8 (7-15) mEq/L BUN 16 (7-30) mg/dL Creatinine 1.1 (0.5-1.5) mg/dL Estimated Creat Clear 45.92 Estimated GFR 67 ml/min Glucose 98 (60-115) mg/dL Calcium 8.8 (8.4-10.6) mg/dL Troponin I 0.01 (0.01-0.04) ng/mL C-Reactive Protein 2.1 H (0.5-1.0) mg/dL NT-Pro-B Natriuret Pep 3870 H (See Note) pg/mL Urine Color Yellow (Yellow) Urine Appearance Clear (Clear) Urine pH 7.0 (5.0-8.5) Ur Specific [place] 1.020 (1.000-1.030) Urine Protein 2+ A (Negative) Urine Glucose (UA) Negative (Negative) Urine Ketones 1+ A (Negative) Urine Blood Negative (Negative) Urine Nitrite Negative (Negative) Urine Bilirubin Negative (Negative) Urine Urobilinogen 1.0 (0.2-1.0) Ur Leukocyte Esterase Negative (Negative) Urine RBC 0-2 (0-2) Urine WBC 0-2 (0-5) Ur Squamous Epith Cells Few (None-Few) Urine Bacteria None (None) POC Troponin I 0.00 L (0.01-0.04) ng/ml ECG Data Attestation: I personally reviewed and interpreted this ECG as follows: (Think this is a ventricular paced rhythm. Rate of 86. Similar to prior. ) Discharge Plan Discharge Clinical Impression: Hyponatremia, Fatigue Patient Disposition: Admitted As Inpatient Condition: Stable
--- NOTE | 2025-02-15 05:00 | CRLHL7_ITS ---
For Patients: As a result of the Cures Act, medical imaging exams and procedure reports are released immediately into your electronic medical record. You may view this report before your referring provider. If you have questions, please contact your health care provider. Indication: Lower abdominal pain Technique: Abdomen 2 view. Comparison: CT abdomen pelvis 07/27/2021 Findings: Bowel: Nonobstructive bowel gas pattern. Other: No pneumoperitoneum on this limited view. Cholecystectomy clips. Upper abdominal clips. Left iliac artery stents. SMA stent. Left hip arthroplasty. Clips in the inguinal regions. Moderate degenerative disease of the spine. Partially visualized cardiac leads. Impression: No acute findings. Dictated by Carolyn Major MD @ 02/15/2025 6:14:29 AM (Electronically Signed)
--- NOTE | 2025-02-15 05:00 | CRLHL7_ITS ---
For Patients: As a result of the Cures Act, medical imaging exams and procedure reports are released immediately into your electronic medical record. You may view this report before your referring provider. If you have questions, please contact your health care provider. INDICATION: Dyspnea TECHNIQUE: Chest 2 views. COMPARISON: Chest radiograph 02/07/2025. FINDINGS: Cardiovascular and mediastinum: Cardiomegaly is stable. Atherosclerosis of the aorta. Left chest wall pacemaker with leads in similar positions, including the coiled right atrial appendage lead. Lungs and pleural spaces: Lungs are clear. Trace bilateral pleural effusions. Bones and soft tissues: Mild degenerative disease of the spine. Median sternotomy with redemonstration of the fractured superior most wire. IMPRESSION: No acute findings. Redemonstration of the coiled right atrial appendage lead. Dictated by Carolyn Major MD @ 02/15/2025 6:16:19 AM (Electronically Signed)
[2025-02-15 05:28] LABS: Hematocrit 36.0 % (37.0-53.0); Hemoglobin* 12.0 gm/dL (13.5-17.5); Immature Granulocytes Abs Auto 0.01 K/uL (0.00-0.30); Immature Granulocytes Pct Auto 0.2 %; Mean Corpuscular HGB Conc 33 gm/dL (32-36); Mean Corpuscular Hemoglobin 29 pg (26-34); Mean Corpuscular Volume 87 fL (80-100); RDW Coefficient of Variation % 14.5 % (11.5-15.5); Red Blood Count 4.16 m/uL (4.30-5.90); White Blood Count* 6.63 K/uL (4.50-11.00)
[2025-02-15 05:34] LABS: Troponin, Point-of-Care* 0.00 ng/ml (0.01-0.04)
[2025-02-15 05:35] LABS: Lymphocytes Absolute Auto 1.20 K/uL (0.90-2.90); Slide Review Reflex No
[2025-02-15 05:45] LABS: Chloride* 91 mmol/L (96-114); Potassium* 4.3 mmol/L (3.6-5.1)
[2025-02-15 05:49] LABS: Anion Gap 8 mEq/L (7-15); Blood Urea Nitrogen* 16 mg/dL (7-30); Calcium* 8.8 mg/dL (8.4-10.6); Carbon Dioxide* 25 mmol/L (20-32); Creatinine* 1.1 mg/dL (0.5-1.5); Est. Creatinine Clearance* 45.92; Estimated Glomerular Filt Rate 67 ml/min; Glucose* 98 mg/dL (60-115)
[2025-02-15 06:02] LABS: Appearance Urine Clear (Clear)
[2025-02-15 06:27] LABS: NT Pro B Type NatriureticPept* 3870 pg/mL (See Note); Sodium* 124 mmol/L (135-149)
[2025-02-15 08:50] LABS: PCR FLU A Negative PCR FLU A (Negative); PCR FLU B Negative PCR FLU B (Negative); PCR RSV Negative PCR RSV (Negative); SARS PCR* Negative SARS-CoV-2 (Negative)
[2025-02-15 10:41] LABS: Sodium* 125 mmol/L (135-149)
--- NOTE | 2025-02-15 11:30 | CRLHL7_ITS ---
For Patients: As a result of the Century Cures Act, medical imaging exams and procedure reports are released immediately into your electronic medical record. You may view this report before your referring provider. If you have questions, please contact your health care provider. Indication: DISTENTION, TYMPANIC BS, ANOREXIA Technique: CT Abdomen/Pelvis W/ 80CC [id number] intravenous contrast Please note that all CT scans at this facility use dose modulation, iterative reconstruction, and/or weight-based dosing when appropriate to reduce radiation dose to as low as reasonably achievable. Comparison: 07/07/2021 Findings: Bilateral pleural effusions are present, [id number], new from prior CT. Mild adjacent atelectasis/scarring. No pericardial effusion. Chronic hepatic steatosis. Gallbladder absent. Spleen unremarkable with incidental differential perfusion. No adrenal nodule. No hydronephrosis. Extensive atherosclerotic changes. No aneurysm. No pancreatic mass. Bladder is normal. Mild-moderate abdominopelvic ascites is new compared to prior CT. Normal appendix. Near-complete absence of stool within the colon with the exception of the rectum. No mechanical bowel obstruction. Small bowel loops are unremarkable. Multilevel degenerative changes. No acute fracture. No adenopathy. Left hip replacement hardware. Impression: Bilateral pleural effusions and intra-abdominal/intrapelvic ascites, new from 07/07/2021. Chronic liver disease without intrahepatic mass. No splenomegaly. Near-complete absence of colonic stool. No mechanical bowel obstruction. Please note that all CT scans at this facility use dose modulation, iterative reconstruction, and/or weight-based dosing when appropriate to reduce radiation dose to as low as reasonably achievable. Dictated by Herrera Balderas MD @ 02/15/2025 1:12:32 PM (Electronically Signed)
--- NOTE | 2025-02-15 12:57 | REH.OT ---
OT order received for evaluate and treat. Attempted x4, but patient not available due to seeing other providers at this time.
[2025-02-15 13:38] LABS: INR 1.87 (0.91-1.10); Prothrombin Time 22.6 Seconds
[2025-02-15 13:51] LABS: Albumin* 4.0 g/dL (3.3-5.0)
[2025-02-15 13:54] LABS: Alanine Aminotransferase* 28 U/L (4-50); Alkaline Phosphatase* 110 U/L (40-150); Aspartate Amino Transferase* 49 U/L (12-35); Bilirubin Direct* 0.5 mg/dL (0.0-0.5); Bilirubin Total* 1.2 mg/dL (0.1-1.5); Total Protein* 7.0 g/dL (6.0-8.3)
[2025-02-15] MEDS: 3 % SODIUM CHLORIDE 500 ml 50 ML 33.33 ML IV (14:11)
--- NOTE | 2025-02-15 16:10 | CRLHL7_ITS ---
For Patients: As a result of the Cures Act, medical imaging exams and procedure reports are released immediately into your electronic medical record. You may view this report before your referring provider. If you have questions, please contact your health care provider. INDICATION: Ascites. Elevated AST. COMPARISON: CT scan of the abdomen and pelvis dated 15 February 2025. FINDINGS: Abdominal ultrasound shows nodularity of the liver contour representing cirrhosis. No focal liver lesions identified. No bile duct dilation with the common bile duct measuring 3 mm. Cholecystectomy. The pancreas is not well visualized. No abnormalities identified in the visualized portions of the right kidney. No right-sided hydronephrosis. The main portal vein measures 1.0 cm in diameter. Hepatopetal flow in the main portal vein with a flow velocity = 46.8 cm/sec. Impression : 1. Cirrhosis. No focal liver lesions identified. 2. No bile duct dilation. Dictated by Robson Moss MD @ 02/15/2025 5:33:28 PM Dictated by: Robson Moss MD @ 02/15/2025 17:33:38 (Electronically Signed)
--- NOTE | 2025-02-15 16:36 | PM.IMHP1 ---
Assessment and Plan Assessment and plan (1) Hyponatremia: Problem comment: - Acute with h/o chronic hyponatremia. Na was 136 a month ago at [facility] and 134 a week ago in the ED. CXR does not show lesions. FeNA is not available here in a timely manner and he has been on torsemide. Suspect this is related to recent change in appetite while on antibiotic, being on torsemide, and possibly also related to liver disease, more workup needed. - Admit. Start oral fluid restriction. Give hypertonic saline bolus and recheck sodium this evening. Goal increase is 4-6 over this first 24 hours. Status: Acute (2) Chronic hyponatremia: Problem comment: - acute on chronic, likely related to CHF - improving nicely - per chart review: 131-134 since 2006, acutely worse in 2021. Saw nephrology in 2021 and was on salt tabs, some concern that salt tabs contributing to edema (this was likely CHF), so they were stopped. He still follows a 2L fluid restriction at home, but had a little more fluid intake recently due to UTI. Status: Acute (3) Ascites: Problem comment: - Noted in 2021. Thought to be related to right-sided heart failure, abdominal ultrasound was negative at that time. Had negative outpatient w/u for autoimmune sources in 2021. 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 - I asked Dr. Lopez to see him for diagnostic paracentesis or thoracentesis. Will hold Eliquis and Aspirin and give vit K to see if that will improve elevated INR (suspect related to liver disease). Status: Acute (4) Pleural effusion, bilateral: Problem comment: - Also has ascites, see above Status: Acute (5) HFrEF (heart failure with reduced ejection fraction): Problem comment: Most recent echo was 01/09/2024, EF 40-45%. Global systolic RV function mildly reduced. Grade 1 pattern LV diastolic filling. Mild aortic, mild to moderate tricuspid regurgitation. - Does have elevated proBNP. Has h/o ascites thought to be HF related. Obtain ECHO. Start IV furosemide for diuresis, monitor Na and renal function. Status: Acute (6) Fatigue: Status: Acute (7) Normocytic anemia: Problem comment: - baseline Hgb 11-2 on chart review Status: Chronic (8) Elevated LFTs: Problem comment: - noted 03/26. Outpatient workup for autoimmune sources negative - noted again today 02/15 along with ascites. May be HF exacerbation. Chronic liver disease seen on CT - check RUQ US. Status: Acute (9) History of hallucinations: Problem comment: - Acute on chronic. Takes seroquel at bedtime for this. Hallucinations have happened before with low sodium. Status: Acute (10) Chronic kidney disease: Problem comment: - stage 3 Status: Chronic (11) Coronary artery disease: Problem comment: - Non STEMI with MELLISSA in 2019 - History of CABG 1995: [place] mid LAD, SVG to OM 1, SVG to RPDA - Multiple PTCA and stent placements Status: Chronic (12) Peripheral artery disease: Problem comment: - Previous left femoral endarterectomy 2011. Occluded, two recanalization efforts unsuccessful, then presented with critical ischemia left leg - s/p left femoral to PT bypass with reversed cephalic vein on 01/11/2022 Status: Chronic (13) Neurogenic bladder: Problem comment: - self catherizes at home Status: Chronic Plan I am concerned for the possibility of cirrhosis as cause of pleural effusions and ascites. Patient has other sequela of cirrhosis: Thrombocytopenia, elevated INR, mildly elevated AST (in end stage cirrhosis LFTs are often no longer elevated), and hyponatremia. Check right upper quadrant ultrasound, obtain ascitic fluid for diagnostic purposes if possible. In the meantime will treat hyponatremia and attempt diuresis for heart failure. Total Time Spent Total Time Spent: Time spent: Today I spent 75 minutes seeing the patient, discussing with the patient and his daughter, discussing the patient with ER staff, reviewing Expanse and EPIC notes/diagnostics, discussing the care plan with our care team that includes social work, PT/OT, pharmacy, RT, long-term and documenting my impressions and plan in the medical record. Hospitalist- H&P: HPI History of Present Illness Date Seen: 02/15/25 Chief complaint: shortness of breath Narrative: Anish Velazquez is a 84 year old male with a complicated PMH who was recently finished treatment of a UTI with Macrobid and has been having more weakness, fatigue, shortness of breath, and difficulty swallowing, and early satiety over the last 3 days. He tells me he has not been able to eat a thing, but his daughter, Bailey, came in later and said that she has been watching him on the baby monitors in the house and notes that he has been eating typically to exit breakfast, some lean meats or hamburger along with pizza or a TV dinner throughout the rest of the day. He denies fevers, chills, chest pain, or lower extremity edema. He has a history of chronic abdominal pain and intermittent constipation and diarrhea for many years. His daughter notes that this has been a chronic problem as well. He takes MiraLax for several days, then has diarrhea and takes Imodium causing constipation again. His daughter notes that his abdomen does seem a lot more distended today and he is been more gassy. Has been self cathing for years for urinary retention. When he had urinary tract infection recently, a urinary catheter was placed in the emergency department and he went home with that. He then went to the clinic to try did get it removed, but they told him he had to talk with the urologist. He called the urology office and they told him to cut the urinary catheter off at a certain level and then pull it out, which he did. He has resumed self cathing and has not had difficulty with that. Review of Systems Status of ROS: Reports: 10 or more systems reviewed and unremarkable except as noted in History and below Medical Decision Making Medical Decision Making Code Status: Modified code, he would like defibrillation, but no chest compressions. DNI. Has patient completed a Health Care Directive: Yes During This Stay, Who Would You Like To Make Decisions For You In The Event You Are Unable To Make Them For Yourself?: Daughter, Bailey. [facility] Medical History (Updated 02/15/25 @ 17:31 by Betty Butt MD) Ascites ?R18.8 - Other ascites (ICD-10) Pulmonary nodule (06/13/12) ?R91.1 - Solitary pulmonary nodule (ICD-10) Neurogenic bladder ?N31.9 - Neuromuscular dysfunction of bladder, unspecified (ICD-10) HFrEF (heart failure with reduced ejection fraction) (06/14/24) ?I50.20 - Unspecified systolic (congestive) heart failure (ICD-10) 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 - Poisoning by other antidysrhythmic drugs, accidental (unintentional), initial encounter (ICD-10) Inguinal hernia of left side without obstruction or gangrene ?K40.90 - Unilateral inguinal hernia, without obstruction or gangrene, not specified as recurrent (ICD-10) BPH (benign prostatic hyperplasia) ?N40.0 - Benign prostatic hyperplasia without lower urinary tract symptoms (ICD-10) Chronic hyponatremia ?E87.1 - Hypo-osmolality and hyponatremia (ICD-10) History of hallucinations ?Z87.898 - Personal history of other specified conditions (ICD-10) GERD (gastroesophageal reflux disease) ?K21.9 - Gastro-esophageal reflux disease without esophagitis (ICD-10) Critical limb ischemia with history of revascularization of same extremity ?I70.229 - Atherosclerosis of [place] arteries of extremities with rest pain, unspecified extremity (ICD-10) ?Z98.890 - Other specified postprocedural states (ICD-10) History of Mobitz type II atrioventricular block ?Z86.79 - Personal history of other diseases of the circulatory system (ICD-10) Non-STEMI (non-ST elevated myocardial infarction) ?I21.4 - Non-ST elevation (NSTEMI) myocardial infarction (ICD-10) Peripheral artery disease ?I73.9 - Peripheral vascular disease, unspecified (ICD-10) Peripheral neuropathy ?G62.9 - Polyneuropathy, unspecified (ICD-10) Coronary artery disease ?I25.10 - Atherosclerotic heart disease of [place] coronary artery without angina pectoris (ICD-10) Lactose intolerance ?E73.9 - Lactose intolerance, unspecified (ICD-10) Mixed hyperlipidemia ?E78.2 - Mixed hyperlipidemia (ICD-10) Carotid artery stenosis ?I65.29 - Occlusion and stenosis of unspecified carotid artery (ICD-10) Chronic kidney disease ?N18.9 - Chronic kidney disease, unspecified (ICD-10) Generalized anxiety disorder ?F41.1 - Generalized anxiety disorder (ICD-10) RLS (restless legs syndrome) ?G25.81 - Restless legs syndrome (ICD-10) Surgical History S/P TURP ?Z90.79 - Acquired absence of other genital organ(s) (ICD-10) S/P rotator cuff repair ?Z98.890 - Other specified postprocedural states (ICD-10) S/P placement of cardiac pacemaker ?Z95.0 - Presence of cardiac pacemaker (ICD-10) History of total hip replacement ?Z96.649 - Presence of unspecified artificial hip joint (ICD-10) History of CEA (carotid endarterectomy) ?Z98.890 - Other specified postprocedural states (ICD-10) S/P femoral-popliteal bypass surgery ?Z95.828 - Presence of other vascular implants and grafts (ICD-10) S/P coronary artery stent placement ?Z95.5 - Presence of coronary angioplasty implant and graft (ICD-10) History of laparoscopic cholecystectomy ?Z90.49 - Acquired absence of other specified parts of digestive tract (ICD-10) S/P CABG x 3 ?Z95.1 - Presence of aortocoronary bypass graft (ICD-10) History of coronary angioplasty ?Z98.61 - Coronary angioplasty status (ICD-10) Social History (Updated 02/15/25 @ 16:50 by Betty Butt MD) Narrative: Lives in [place]. Independent. 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 Previous smoker. Quit date 1988. No alcohol use. Retired from [employer]. . Five adult children. DaughterBailey sets up his medications and helps him with appointments. What is your current living situation?: I presently have a place to live Problems where you live: no known problems Problems where you live details: NA In the past 12 months, utilities in danger of being shut off: no In past 12 months, lack of transportation kept you from medical appts, meetings, work, or getting things needed for daily living: no In the past 12 mos, have been you worried that your food would run out before you had money to buy more?: never true In the past 12 mos, the food you bought just didn't last and you didn't have money to buy more?: never true Highest level of school completed/degree received: 12th grade, no diploma Smoking Status: Former smoker How often do you have a drink containing alcohol: never AUDIT-C Alcohol total score: 0 Non-prescribed substance use: denies use Caffeine: Yes (pepsi) How often does anyone, including family, friends and others, physically hurt you: never How often does anyone, including family, friends and others, insult or talk down to you: never How often does anyone, including family, friends and others, threaten you with harm: never How often does anyone, including family, friends and others, scream or curse at you: never service: No Meds Home Medications and Allergies Home Medications ?Medication ?Instructions ?Recorded ?Confirmed ?Type carvedilol 12.5 mg tablet 12.5 mg PO BID 03/13/22 02/15/25 History clonidine HCl 0.1 mg tablet 0.1 mg PO Q12H PRN 03/13/22 02/15/25 History pramipexole 0.5 mg tablet 0.5 mg PO HS 03/13/22 02/15/25 History atorvastatin 80 mg tablet 80 mg PO HS 05/29/22 02/15/25 History nitroglycerin 0.4 mg sublingual 0.4 mg sublingual Q5M PRN chest 05/29/22 02/15/25 History tablet pain omeprazole 40 mg capsule,delayed 40 mg PO DAILY 05/29/22 02/15/25 History release magnesium oxide 400 mg (241.3 mg 400 mg PO HS 09/12/23 02/15/25 History magnesium) tablet melatonin 3 mg capsule 3 mg PO HS PRN 09/12/23 02/15/25 History multivitamin 1 tab PO DAILY 09/12/23 02/15/25 History sennosides 8.6 mg capsule (senna) 8.6 mg PO DAILY PRN constipation 09/14/23 02/15/25 Rx #90 caps apixaban 5 mg tablet 5 mg PO BID 02/15/25 02/15/25 History aspirin 81 mg tablet 81 mg PO DAILY 02/15/25 02/15/25 History carvedilol 6.25 mg tablet 6.25 mg PO HS 02/15/25 02/15/25 History polyethylene glycol 3350 17 gram 17 g PO DAILY PRN 02/15/25 02/15/25 History oral powder packet (Miralax) potassium chloride 10 mEq 10 meq PO DAILY 02/15/25 02/15/25 History tablet,extended release simethicone 125 mg capsule (Gas 125 - 250 mg PO QID PRN 02/15/25 02/15/25 History Relief (simethicone)) torsemide 20 mg tablet 20 mg PO DAILY 02/15/25 02/15/25 History Allergies Allergy/AdvReac Type Severity Reaction Status Date / Time amitriptyline (From [facility]) Allergy Verified 09/20/23 20:07 amlodipine Allergy low Verified 09/20/23 20:07 pressures ciprofloxacin Allergy severe Verified 09/20/23 20:07 hives citalopram (From Celexa) Allergy Diarrhea Verified 09/20/23 20:07 erythromycin base Allergy Verified 09/20/23 20:07 escitalopram (From Lexapro) Allergy Depression Verified 09/20/23 20:07 ezetimibe (From Zetia) Allergy Nausea Verified 09/20/23 20:07 hydrochlorothiazide Allergy cramps Verified 09/20/23 20:07 lactose Allergy GI upset Verified 09/20/23 20:07 Penicillins Allergy Hives Verified 09/20/23 20:07 rosuvastatin (From Crestor) Allergy Rash Verified 09/20/23 20:07 sulindac Allergy sedation Verified 09/20/23 20:07 co Q10 Allergy myalgia Uncoded 09/12/23 09:20 Exam Narrative: Exam Narrative: General: No acute distress. Awake alert oriented x3. HEENT: Normocephalic atraumatic, pupils equally round and reactive to light and accommodation. Oropharynx clear. Mucous membranes are moist. No cervical lymphadenopathy, thyromegaly or carotid bruits. No JVD. Cardiovascular: Regular rate and rhythm. No murmurs, gallops, or rubs. Chest: No increased work of breathing. Clear to auscultation bilaterally, diminished breath sounds in both bases. No crackles or wheezes. Abdomen: Bowel sounds tympanic. Distended, nontender to palpation. Cannot palpate for hepatosplenomegaly or masses. Extremities: No edema, no cyanosis or clubbing. Skin: Possible mild jaundice of forehead and face. No pallor, no rashes. Neuro: Grossly intact. No focal deficits. Const: Vital Signs, click to edit/add: Vital Signs - 24 hr 02/15/25 04:33 02/15/25 05:17 02/15/25 05:48 Temperature 97.9 F Pulse Rate 92 Pulse Rate [Pulse Oximeter] 87 Respiratory Rate 18 18 22 Blood Pressure 144/100 H 154/96 H Blood Pressure [Le ft Arm] Blood Pressure [Ri ght Upper Arm] 142/84 H Pulse Oximetry 97 96 Oxygen Delivery Me thod Room Air 02/15/25 06:02 02/15/25 06:15 02/15/25 06:17 Temperature Pulse Rate 84 85 Pulse Rate [Pulse Oximeter] Respiratory Rate 10 L 14 15 Blood Pressure 151/85 H 164/123 H Blood Pressure [Le ft Arm] Blood Pressure [Ri ght Upper Arm] Pulse Oximetry 94 97 Oxygen Delivery Me thod 02/15/25 06:47 02/15/25 07:02 02/15/25 08:30 Temperature 97.8 F Pulse Rate 91 92 Pulse Rate [Pulse Oximeter] 80 Respiratory Rate 15 12 20 Blood Pressure 151/93 H 152/92 H Blood Pressure [Le ft Arm] 155/97 H Blood Pressure [Ri ght Upper Arm] Pulse Oximetry 98 99 Oxygen Delivery Me thod Room Air 02/15/25 08:30 02/15/25 11:00 02/15/25 15:00 Temperature 97.8 F Pulse Rate 80 Pulse Rate [Pulse Oximeter] 83 Respiratory Rate 20 20 Blood Pressure Blood Pressure [Le ft Arm] 160/80 H Blood Pressure [Ri ght Upper Arm] Pulse Oximetry 97 97 Oxygen Delivery Me thod Room Air Room Air 02/15/25 15:00 02/15/25 15:00 02/15/25 15:00 Temperature 97.3 F L Pulse Rate Pulse Rate [Pulse Oximeter] 83 Respiratory Rate 20 20 Blood Pressure Blood Pressure [Le ft Arm] 150/73 H Blood Pressure [Ri ght Upper Arm] Pulse Oximetry 92 92 Oxygen Delivery Me thod Room Air Room Air Documenting provider has reviewed patient's vital signs: yes Hospitalist - H&P: Result Labs Labs: Short CBC 02/15/25 Range/Units 05:20 WBC 6.63 (4.50-11.00) K/uL Hgb 12.0 L (13.5-17.5) gm/dL Hct 36.0 L (37.0-53.0) % Plt Count 116 L (140-440) K/uL BMP 02/15/25 02/15/25 05:20 10:15 Sodium 124 L* 125 L Potassium 4.3 Chloride 91 L Carbon Dioxide 25 BUN 16 Creatinine 1.1 Glucose 98 Calcium 8.8 Cardiac Enzymes 02/15/25 Range/Units 05:20 Troponin I 0.01 (0.01-0.04) ng/mL Liver Function 02/15/25 Range/Units 05:20 Total Bilirubin 1.2 (0.1-1.5) mg/dL Direct Bilirubin 0.5 (0.0-0.5) mg/dL AST 49 H (12-35) U/L ALT 28 (4-50) U/L Alkaline Phosphatase 110 (40-150) U/L Albumin 4.0 (3.3-5.0) g/dL Urine 02/15/25 Range/Units 05:40 Urine Color Yellow (Yellow) Urine Appearance Clear (Clear) Urine pH 7.0 (5.0-8.5) Ur Specific [place] 1.020 (1.000-1.030) Urine Protein 2+ A (Negative) Urine Glucose (UA) Negative (Negative) 02/15/2025 EKG: Undetermined rhythm, 86 beats per minute, right axis deviation, nonspecific interventricular block, cannot rule out septal infarct, age undetermined. T-wave abnormality, consider inferolateral ischemia. Ordering Physician: Herrera Prakash M.D. Date of Service: 02/15/25 Procedure(s): XR abdomen min 2V Accession Number(s): [id number] cc: Monico Modi M.D.; Herrera Prakash M.D.~ For Patients: As a result of the Cures Act, medical imaging exams and procedure reports are released immediately into your electronic medical record. You may view this report before your referring provider. If you have questions, please contact your health care provider. Indication: Lower abdominal pain Technique: Abdomen 2 view. Comparison: CT abdomen pelvis 07/27/2021 Findings: Bowel: Nonobstructive bowel gas pattern. Other: No pneumoperitoneum on this limited view. Cholecystectomy clips. Upper abdominal clips. Left iliac artery stents. SMA stent. Left hip arthroplasty. Clips in the inguinal regions. Moderate degenerative disease of the spine. Partially visualized cardiac leads. Impression: No acute findings. Dictated by Carolyn Major MD @ 02/15/2025 6:14:29 AM (Electronically Signed) Ordering Physician: Herrera Prakash M.D. Date of Service: 02/15/25 Procedure(s): XR chest 2V Accession Number(s): [id number] cc: Monico Modi M.D.; Herrera Prakash M.D.~ For Patients: As a result of the Cures Act, medical imaging exams and procedure reports are released immediately into your electronic medical record. You may view this report before your referring provider. If you have questions, please contact your health care provider. INDICATION: Dyspnea TECHNIQUE: Chest 2 views. COMPARISON: Chest radiograph 02/07/2025. FINDINGS: Cardiovascular and mediastinum: Cardiomegaly is stable. Atherosclerosis of the aorta. Left chest wall pacemaker with leads in similar positions, including the coiled right atrial appendage lead. Lungs and pleural spaces: Lungs are clear. Trace bilateral pleural effusions. Bones and soft tissues: Mild degenerative disease of the spine. Median sternotomy with redemonstration of the fractured superior most wire. IMPRESSION: No acute findings. Redemonstration of the coiled right atrial appendage lead. Dictated by Carolyn Major MD @ 02/15/2025 6:16:19 AM (Electronically Signed) Ordering Physician: Betty Butt M.D. Date of Service: 02/15/25 Procedure(s): CT abdomen pelvis w con Accession Number(s): [id number] cc: Monico Modi M.D.; Betty Butt M.D.~ For Patients: As a result of the Cures Act, medical imaging exams and procedure reports are released immediately into your electronic medical record. You may view this report before your referring provider. If you have questions, please contact your health care provider. Indication: DISTENTION, TYMPANIC BS, ANOREXIA Technique: CT Abdomen/Pelvis W/ 80CC [id number] intravenous contrast Please note that all CT scans at this facility use dose modulation, iterative reconstruction, and/or weight-based dosing when appropriate to reduce radiation dose to as low as reasonably achievable. Comparison: 07/07/2021 Findings: Bilateral pleural effusions are present, [id number], new from prior CT. Mild adjacent atelectasis/scarring. No pericardial effusion. Chronic hepatic steatosis. Gallbladder absent. Spleen unremarkable with incidental differential perfusion. No adrenal nodule. No hydronephrosis. Extensive atherosclerotic changes. No aneurysm. No pancreatic mass. Bladder is normal. Mild-moderate abdominopelvic ascites is new compared to prior CT. Normal appendix. Near-complete absence of stool within the colon with the exception of the rectum. No mechanical bowel obstruction. Small bowel loops are unremarkable. Multilevel degenerative changes. No acute fracture. No adenopathy. Left hip replacement hardware. Impression: Bilateral pleural effusions and intra-abdominal/intrapelvic ascites, new from 07/07/2021. Chronic liver disease without intrahepatic mass. No splenomegaly. Near-complete absence of colonic stool. No mechanical bowel obstruction. Please note that all CT scans at this facility use dose modulation, iterative reconstruction, and/or weight-based dosing when appropriate to reduce radiation dose to as low as reasonably achievable. Dictated by Herrera Balderas MD @ 02/15/2025 1:12:32 PM (Electronically Signed)
[2025-02-15] MEDS: PHYTONADIONE (VIT K1) 5 MG TABLET PO (17:25)
[2025-02-15] MEDS: ACETAMINOPHEN 325 MG TABLET 650 MG PO (17:29)
[2025-02-15] MEDS: FUROSEMIDE 10 MG/ML inj 40 MG IVP (18:29)
[2025-02-15 18:36] LABS: C.Difficile Negative (Negative); CDIFFEPI 027 PRESUMPTIVE NEGATIVE (Negative)
--- NOTE | 2025-02-15 18:47 | PC.NURSE ---
End of shift report : Pleasant and cooperative with cares. Alert and oriented with intermittent confusion. SOB with exertion and conversation. Lung sounds clear, diminished in bilateral bases. Patient reporting abdominal pain. Abdomen is large, round, distended and tender. Bowel sounds hyperactive throughout. Patient states that he has issues with constipation and feels that is his current issue. Patient self catheterization at home due to urinary retention. Patient reports at times he is able to empty bladder voiding, he is able to tell when he needs to use the catheter. Hospital catheter supplied, patient did not want to use hospital supply and daughter brought patient personal supply. Self cath x 3 after voiding as patient feels full in his abdomen. Did educate patient on ascites and that his full/pressure feeling in his abdomen is due to the fluid. Patient continues to report discomfort to abdomen, is restless and requesting something for the discomfort. Discussed with Dr. Butt and Dr. Kay and new orders obtained.
[2025-02-15 18:57] LABS: Sodium* 125 mmol/L (135-149)
[2025-02-15] MEDS: PRAMIPEXOLE 0.5 MG TABLET PO (20:34)
[2025-02-15] MEDS: ATORVASTATIN CALCIUM 40 MG TABLET 80 MG PO (20:34)
[2025-02-15] MEDS: MAGNESIUM OXIDE 400 MG TABLET PO (20:37)
[2025-02-15] MEDS: SODIUM CHLORIDE 0.9 % (FLUSH) 10 ML SYRINGE 5 ML IVF (20:37)
[2025-02-16 02:29] VITALS: BP 145/85; PULSE 98; RESP 18; TEMP 36.3; O2SAT 100
[2025-02-16 03:45] LABS: Hematocrit 34.2 % (37.0-53.0); Hemoglobin* 11.3 gm/dL (13.5-17.5); Immature Granulocytes Abs Auto 0.01 K/uL (0.00-0.30); Immature Granulocytes Pct Auto 0.2 %; Lymphocytes Absolute Auto 1.02 K/uL (0.90-2.90); Mean Corpuscular HGB Conc 33 gm/dL (32-36); Mean Corpuscular Hemoglobin 29 pg (26-34); Mean Corpuscular Volume 86 fL (80-100); RDW Coefficient of Variation % 14.6 % (11.5-15.5); Red Blood Count 3.96 m/uL (4.30-5.90); White Blood Count* 4.87 K/uL (4.50-11.00)
[2025-02-16 03:52] LABS: Slide Review Reflex No
[2025-02-16 03:57] LABS: Chloride* 93 mmol/L (96-114); Potassium* 3.9 mmol/L (3.6-5.1); Sodium* 126 mmol/L (135-149)
[2025-02-16 04:00] LABS: Anion Gap 5 mEq/L (7-15); Blood Urea Nitrogen* 16 mg/dL (7-30); Calcium* 8.7 mg/dL (8.4-10.6); Carbon Dioxide* 28 mmol/L (20-32); Creatinine* 1.0 mg/dL (0.5-1.5); Est. Creatinine Clearance* 50.51; Estimated Glomerular Filt Rate 75 ml/min; Glucose* 90 mg/dL (60-115)
[2025-02-16 04:01] LABS: INR 1.59 (0.91-1.10); Prothrombin Time 20.0 Seconds
--- NOTE | 2025-02-16 05:04 | PC.NURSE ---
Pt rested well this night. Up several times to BR and voiding, did not use straight cath. Passing Flatus but no BM. RN was able to get EKG see chart. Pt had run of HR above 140 for short period. Gonsalo called about EKG results and labs were ordered BMP specifically for Na. Na was 126 and Gonsalo had no further update other than await next draw this am. Pt was pleasant and cooperative and answering questions appropriately. HR very irregular but mainly in the 90s most of the night. Ab remains Distended and Pt gets relief with urination and Flatus. Apix was held at HS. VS were unremarkable.
[2025-02-16] MEDS: OMEPRAZOLE 20 MG CAPSULE DR 40 MG PO (06:35)
[2025-02-16 07:00] VITALS: BP 158/110; PULSE 72; PULSE 96; RESP 22; TEMP 36.3; O2SAT 99
[2025-02-16] MEDS: POTASSIUM CHLORIDE 10 MEQ CAPSULE ER PO (07:31)
[2025-02-16] MEDS: SODIUM CHLORIDE 0.9 % (FLUSH) 10 ML SYRINGE 5 ML IVF ×2 (07:32→14:04)
[2025-02-16 08:21] LABS: Chloride* 93 mmol/L (96-114); Potassium* 3.9 mmol/L (3.6-5.1); Sodium* 125 mmol/L (135-149)
[2025-02-16 08:24] LABS: Anion Gap 4 mEq/L (7-15); Blood Urea Nitrogen* 15 mg/dL (7-30); Carbon Dioxide* 28 mmol/L (20-32); Creatinine* 1.0 mg/dL (0.5-1.5); Est. Creatinine Clearance* 50.51; Estimated Glomerular Filt Rate 75 ml/min
[2025-02-16 08:25] LABS: Calcium* 8.5 mg/dL (8.4-10.6); Glucose* 93 mg/dL (60-115)
[2025-02-16] MEDS: FUROSEMIDE 20 MG TABLET PO (09:24)
[2025-02-16] MEDS: SPIRONOLACTONE 25 MG TABLET 50 MG PO (09:24)
[2025-02-16] MEDS: PERFLUTREN LIPID MICROSPHERES 2 ML VIAL IVP (10:35)
[2025-02-16 11:00] VITALS: BP 122/63; PULSE 79; RESP 18; TEMP 36.2; O2SAT 95
[2025-02-16 13:25] LABS: Sodium* 125 mmol/L (135-149)
--- NOTE | 2025-02-16 14:46 | PM.DST ---
Transfer Discharge Sum: Prov Provider Time Seen by Provider: 09:40 Date Seen: 02/16/25 Date of admission: 02/15/25 08:35 Primary care physician: Monico Modi MD Admitting clinician: Betty Butt Consults: 02/15/25 09:32 Consult to Physical Therapy [CONS] Routine Comment: Reason(s) for PT Consult:: Evaluate and Treat Any Restrictions?:: No Restrictions Consult to Commercial Loan Assistant [CONS] Routine Comment: Reason for Consult:: Discharge Planning Needs 02/15/25 09:35 Consult to Occupational Therapy [CONS] Routine Comment: Reason(s) for OT Consult:: Evaluate and Treat Any Restrictions?:: No Restrictions 02/16/25 09:38 Consult to Nutrition [CONS] Routine Comment: Reason for consult:: Miscellaneous Consult to Speech Therapy [CONS] Routine Comment: Reason(s) for Speech Consult:: Swallowing Difficulty Attending physician on discharge: Betty Butt Anticipated date of transfer: 02/16/25 Receiving physician/facility: Berta Steele DS: Diagnosis Discharge Diagnosis (1) Hyponatremia: Status: Acute Problem details: - Acute with h/o chronic hyponatremia. Na was 136 a month ago at [facility] and 134 a week ago in the ED. CXR does not show lesions. FeNA is not available here in a timely manner and he has been on torsemide. Suspect this is related to recent change in appetite while on antibiotic, being on torsemide, and possibly also related to liver disease, more workup needed. - Admit. Start oral fluid restriction. Give hypertonic saline bolus and recheck sodium this evening. Goal increase is 4-6 over this first 24 hours. - 02/16 I suspect this is due to cirrhosis and CHF. Treat these conditions and monitor sodium. FR is not helpful in cirrhosis and hypertonic saline may exacerbate ascites. Monitor. (2) Chronic hyponatremia: Status: Acute Problem details: - acute on chronic, likely related to CHF - improving nicely - per chart review: 131-134 since 2006, acutely worse in 2021. Saw nephrology in 2021 and was on salt tabs, some concern that salt tabs contributing to edema (this was likely CHF), so they were stopped. He still follows a 2L fluid restriction at home, but had a little more fluid intake recently due to UTI. (3) Ascites: Status: Acute Problem details: - Noted in 2021. Thought to be related to right-sided heart failure, abdominal ultrasound was negative at that time. Had negative outpatient w/u for autoimmune sources in 2021. 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 - I asked Dr. Lopez to see him for diagnostic paracentesis or thoracentesis. Will hold Eliquis and Aspirin and give vit K to see if that will improve elevated INR (suspect related to liver disease). - 02/16 In light of cirrhosis (seen on CT abd/pelvis and RUQ US), I have started spironolactone (50mg) and furosemide (20mg). Transfer to [place] for worsening HF and severe TR (4) Pleural effusion, bilateral: Status: Acute Problem details: - Also has ascites, see above (5) HFrEF (heart failure with reduced ejection fraction): Status: Acute Problem details: Most recent echo was 01/09/2024, EF 40-45%. Global systolic RV function mildly reduced. Grade 1 pattern LV diastolic filling. Mild aortic, mild to moderate tricuspid regurgitation. - Does have elevated proBNP. Has h/o ascites thought to be HF related. Obtain ECHO. Start IV furosemide for diuresis, monitor Na and renal function. - Worsening EF and TR on ECHO today. I spoke with Dr. Hampton from [place] who has accepted this patient in transfer. (6) Severe tricuspid regurgitation: Status: Acute Problem details: - as above (7) Fatigue: Status: Acute (8) Normocytic anemia: Status: Chronic Problem details: - baseline Hgb 11-2 on chart review (9) Elevated LFTs: Status: Acute Problem details: - noted 03/26. Outpatient workup for autoimmune sources negative - noted again today 02/15 along with ascites. May be HF exacerbation. Chronic liver disease seen on CT - check RUQ US. - 02/16 Cirrhosis on RUQ US - HF vs other? (10) History of hallucinations: Status: Acute Problem details: - Acute on chronic. Takes seroquel at bedtime for this. Hallucinations have happened before with low sodium. - 02/16 none since admission (11) Chronic kidney disease: Status: Chronic Problem details: - stage 3, Cr stable at 1 (12) Coronary artery disease: Status: Chronic Problem details: - Non STEMI with MELLISSA in 2019 - History of CABG 1995: [place] mid LAD, SVG to OM 1, SVG to RPDA - Multiple PTCA and stent placements (13) Peripheral artery disease: Status: Chronic Problem details: - Previous left femoral endarterectomy 2011. [place], two recanalization efforts unsuccessful, then presented with critical ischemia left leg - s/p left femoral to PT bypass with reversed cephalic vein on 01/11/2022 (14) Neurogenic bladder: Status: Chronic Problem details: - self catherizes at home (15) Thrombocytopenia: Status: Acute Transfer Discharge Sum: Med Medications Active and Home Medications: Home Medications carvedilol 12.5 mg tablet 12.5 mg PO BID 03/13/22 [History Confirmed 02/15/25] clonidine HCl 0.1 mg tablet 0.1 mg PO Q12H PRN 03/13/22 [History Confirmed 02/15/25] pramipexole 0.5 mg tablet 0.5 mg PO HS 03/13/22 [History Confirmed 02/15/25] atorvastatin 80 mg tablet 80 mg PO HS 05/29/22 [History Confirmed 02/15/25] nitroglycerin 0.4 mg sublingual tablet 0.4 mg sublingual Q5M PRN chest pain 05/29/22 [History Confirmed 02/15/25] omeprazole 40 mg capsule,delayed release 40 mg PO DAILY 05/29/22 [History Confirmed 02/15/25] magnesium oxide 400 mg (241.3 mg magnesium) tablet 400 mg PO HS 09/12/23 [History Confirmed 02/15/25] melatonin 3 mg capsule 3 mg PO HS PRN 09/12/23 [History Confirmed 02/15/25] multivitamin 1 tab PO DAILY 09/12/23 [History Confirmed 02/15/25] sennosides 8.6 mg capsule (senna) 8.6 mg PO DAILY PRN constipation #90 caps 09/14/23 [Rx Confirmed 02/15/25] apixaban 5 mg tablet 5 mg PO BID 02/15/25 [History Confirmed 02/15/25] aspirin 81 mg tablet 81 mg PO DAILY 02/15/25 [History Confirmed 02/15/25] carvedilol 6.25 mg tablet 6.25 mg PO HS 02/15/25 [History Confirmed 02/15/25] polyethylene glycol 3350 17 gram oral powder packet (Miralax) 17 g PO DAILY PRN 02/15/25 [History Confirmed 02/15/25] potassium chloride 10 mEq tablet,extended release 10 meq PO DAILY 02/15/25 [History Confirmed 02/15/25] simethicone 125 mg capsule (Gas Relief (simethicone)) 125 - 250 mg PO QID PRN 02/15/25 [History Confirmed 02/15/25] torsemide 20 mg tablet 20 mg PO DAILY 02/15/25 [History Confirmed 02/15/25] Active Medications Acetaminophen (Acetaminophen 325 Mg Tablet) 650 mg PO Q6H PRN PRN Reason: As needed for fever, headache, or minor pain Last Admin: 02/15/25 17:29 Dose: 650 mg Apixaban (Apixaban 5 Mg Tablet) 5 mg PO BID [facility] On Hold: 02/15/25 21:00 Aspirin (Aspirin 81 Mg Tablet Ec) 81 mg PO DAILY [facility] On Hold: 02/16/25 09:00 Atorvastatin Calcium (Atorvastatin Calcium 40 Mg Tablet) 80 mg PO [facility] Last Admin: 02/15/25 20:34 Dose: 80 mg Carvedilol (Carvedilol 6.25 Mg Tablet) 12.5 mg PO QAM [facility] On Hold: 02/16/25 09:00 Carvedilol (Carvedilol 6.25 Mg Tablet) 18.75 mg PO HS [facility] On Hold: 02/16/25 07:25 Last Admin: 02/15/25 20:36 Dose: 18.75 mg Clonidine HCl (Clonidine Hcl 0.1 Mg Tablet) 0.1 mg PO Q12H PRN Last Admin: 02/15/25 20:37 Dose: 0.1 mg Furosemide (Furosemide 20 Mg Tablet) 20 mg PO DAILY@0800 [facility] Last Admin: 02/16/25 09:24 Dose: 20 mg Hydromorphone HCl (Hydromorphone 0.5 Mg/0.5 Ml Inj) 0.2 mg IVP Q2H PRN Last Admin: 02/16/25 14:04 Dose: 0.2 mg Magnesium Oxide (Magnesium Oxide 400 Mg Tablet) 400 mg PO HS [facility] Last Admin: 02/15/25 20:37 Dose: 400 mg Nitroglycerin (Nitroglycerin 0.4 Mg Tab.Subl) 0.4 mg SUBLINGUAL Q5M PRN PRN Reason: Chest Pain Omeprazole (Omeprazole [address]) 40 mg PO DAILY@0700 [facility] Last Admin: 02/16/25 06:35 Dose: 40 mg Pramipexole Dihydrochloride (Pramipexole 0.5 Mg Tablet) 0.5 mg PO HS [facility] Last Admin: 02/15/25 20:34 Dose: 0.5 mg Sodium Chloride (Sodium Chloride 0.9 % (Flush) 10 Ml Syringe) 5 ml IVF .FLUSH PRN Last Admin: 02/16/25 14:04 Dose: 5 ml Sodium Chloride (Sodium Chloride 0.9 % (Flush) 10 Ml Syringe) 5 ml IVF BID [facility] Last Admin: 02/16/25 07:32 Dose: 5 ml Spironolactone (Spironolactone 25 Mg Tablet) 50 mg PO DAILY [facility] Last Admin: 02/16/25 09:24 Dose: 50 mg Transfer Discharge Sum: Hosp Hospital Course Hospital course: Anish Velazquez is a 84 year old male with a complicated PMH who was recently finished treatment of a UTI with Macrobid and has been having more weakness, fatigue, shortness of breath, and difficulty swallowing, and early satiety over the last 3 days. He tells me he has not been able to eat a thing, but his daughter, Bailey, came in later and said that she has been watching him on the baby monitors in the house and notes that he has been eating typically to exit breakfast, some lean meats or hamburger along with pizza or a TV dinner throughout the rest of the day. He denies fevers, chills, chest pain, or lower extremity edema. He has a history of chronic abdominal pain and intermittent constipation and diarrhea for many years. His daughter notes that this has been a chronic problem as well. He takes MiraLax for several days, then has diarrhea and takes Imodium causing constipation again. His daughter notes that his abdomen does seem a lot more distended today and he is been more gassy. Has been self cathing for years for urinary retention. When he had urinary tract infection recently, a urinary catheter was placed in the emergency department and he went home with that. He then went to the clinic to try did get it removed, but they told him he had to talk with the urologist. He called the urology office and they told him to cut the urinary catheter off at a certain level and then pull it out, which he did. He has resumed self cathing and has not had difficulty with that. Further imaging was obtained, which showed abdominal ascites and bilateral pleural effusions. RUQ US concerning for cirrhosis. Patient does have several lab values also concerning for probable cirrhosis: hyponatremia, thrombocytopenia, mildly elevated AST at 49. ECHO was obtained and in concerning for worsening LFEF, TR and . I spoke with patient and his daughter, who desired further w/u and treatment, but likely does not want any surgery. I spoke with Dr. Hampton, a plant utility person at [place], who recommended transfer to [place]. Patient and daughter are agreeable with this plan. Please see diagnoses above for further details. Time Spent with Patient Time attestation: Total time spent providing and/or coordinating transfer services: Today I spent 60 minutes seeing the patient, discussing with patient and his daughter, conversations with call center and plant utility person, reviewing [facility] and [facility] notes/diagnostics/labs, discussing the care plan with our care team that includes social work, PT/OT, pharmacy, RT, half-way and documenting my impressions and plan in the medical record. Exam Narrative: Exam Narrative: General: No acute distress. Awake alert oriented. Cardiovascular: Regular rate and rhythm. No murmurs, gallops, or rubs. Chest: No increased work of breathing. Clear to auscultation bilaterally, diminished breath sounds in both bases. No crackles or wheezes. Abdomen: Bowel sounds hyperactive, mildly tympanic. Slightly less distended, nontender to palpation. Extremities: No edema, no cyanosis or clubbing. Const: Vital Signs, click to edit/add: Vital Signs - 24 hr 02/15/25 15:00 02/15/25 15:00 02/15/25 15:00 Temperature Pulse Rate 80 Pulse Rate [Pulse Oximeter] Respiratory Rate 20 Blood Pressure [Le ft Arm] Pulse Oximetry 92 Oxygen Delivery Me thod Room Air 02/15/25 15:00 02/15/25 19:11 02/15/25 19:44 Temperature 97.3 F L 97.4 F L Pulse Rate 76 Pulse Rate [Pulse Oximeter] 83 79 Respiratory Rate 20 16 Blood Pressure [Le ft Arm] 150/73 H 139/75 Pulse Oximetry 92 97 Oxygen Delivery Me thod Room Air Room Air 02/15/25 22:30 02/15/25 22:41 02/15/25 22:42 Temperature 97.9 F Pulse Rate Pulse Rate [Pulse Oximeter] 83 83 Respiratory Rate 16 16 16 Blood Pressure [Le ft Arm] 128/64 Pulse Oximetry 97 96 Oxygen Delivery Me thod Room Air Room Air 02/16/25 02:29 02/16/25 07:00 02/16/25 07:00 Temperature 97.3 F L 97.3 F L Pulse Rate Pulse Rate [Pulse Oximeter] 98 72 Respiratory Rate 18 22 22 Blood Pressure [Le ft Arm] 145/85 H 158/110 H Pulse Oximetry 100 99 99 Oxygen Delivery Me thod Room Air Room Air Room Air 02/16/25 07:00 02/16/25 07:00 02/16/25 11:00 Temperature 97.2 F L Pulse Rate 96 Pulse Rate [Pulse Oximeter] 72 79 Respiratory Rate 22 18 Blood Pressure [Le ft Arm] 122/63 Pulse Oximetry 95 Oxygen Delivery Me thod Room Air Documenting provider has reviewed patient's vital signs: yes Transfer Discharge Sum: Data Data Completed and Pending Completed studies during hospitalization: 02/15/2025 EKG: Undetermined rhythm, 86 beats per minute, right axis deviation, nonspecific intraventricular block, cannot rule out septal infarct, age undetermined, T-wave abnormality, consider inferior lateral ischemia. 02/16/2025 EKG: Sinus tachycardia with first-degree AV block with frequent premature ventricular complexes, 102 beats per minute. Rightward axis, nonspecific intraventricular block, cannot rule out septal infarct, age undetermined, T-wave abnormality, consider inferior ischemia, T-wave abnormality, consider anterolateral ischemia. 02/16/2025 echocardiogram: Mildly increased LV size, normal wall thickness, moderately a reduced global systolic function with an estimated EF of 30-35%. Global hypokinesis. Right ventricular cavity size is moderately enlarged, global systolic function is mildly reduced. The aortic valve is calcified and normal, moderate to severe stenosis (low-flow, low gradient) and mild regurgitation. The aortic valve peak velocity is 2.2 m/s, the peak gradient is 20 mm mercury and a mean gradient is 12 mm Hg. The aortic valve is 0.98 centimeters squared with a dementionless index of 0.24. The stroke volume index is 25.4 ml/m2. Tricuspid valve is noncoaptin with severe tricuspid regurgitation. Ordering Physician: Herrera Prakash M.D. Date of Service: 02/15/25 Procedure(s): XR abdomen min 2V Accession Number(s): [id number] cc: Monico Modi M.D.; Herrera Prakash M.D.~ For Patients: As a result of the Cures Act, medical imaging exams and procedure reports are released immediately into your electronic medical record. You may view this report before your referring provider. If you have questions, please contact your health care provider. Indication: Lower abdominal pain Technique: Abdomen 2 view. Comparison: CT abdomen pelvis 07/27/2021 Findings: Bowel: Nonobstructive bowel gas pattern. Other: No pneumoperitoneum on this limited view. Cholecystectomy clips. Upper abdominal clips. Left iliac artery stents. SMA stent. Left hip arthroplasty. Clips in the inguinal regions. Moderate degenerative disease of the spine. Partially visualized cardiac leads. Impression: No acute findings. Dictated by Carolyn Major MD @ 02/15/2025 6:14:29 AM (Electronically Signed) Ordering Physician: Herrera Prakash M.D. Date of Service: 02/15/25 Procedure(s): XR chest 2V Accession Number(s): [id number] cc: Monico Modi M.D.; Herrera Prakash M.D.~ For Patients: As a result of the Cures Act, medical imaging exams and procedure reports are released immediately into your electronic medical record. You may view this report before your referring provider. If you have questions, please contact your health care provider. INDICATION: Dyspnea TECHNIQUE: Chest 2 views. COMPARISON: Chest radiograph 02/07/2025. FINDINGS: Cardiovascular and mediastinum: Cardiomegaly is stable. Atherosclerosis of the aorta. Left chest wall pacemaker with leads in similar positions, including the coiled right atrial appendage lead. Lungs and pleural spaces: Lungs are clear. Trace bilateral pleural effusions. Bones and soft tissues: Mild degenerative disease of the spine. Median sternotomy with redemonstration of the fractured superior most wire. IMPRESSION: No acute findings. Redemonstration of the coiled right atrial appendage lead. Dictated by Carolyn Major MD @ 02/15/2025 6:16:19 AM (Electronically Signed) Ordering Physician: Betty Butt M.D. Date of Service: 02/15/25 Procedure(s): CT abdomen pelvis w con Accession Number(s): [id number] cc: Monico Modi M.D.; Betty Butt M.D.~ For Patients: As a result of the Cures Act, medical imaging exams and procedure reports are released immediately into your electronic medical record. You may view this report before your referring provider. If you have questions, please contact your health care provider. Indication: DISTENTION, TYMPANIC BS, ANOREXIA Technique: CT Abdomen/Pelvis W/ 80CC [id number] intravenous contrast Please note that all CT scans at this facility use dose modulation, iterative reconstruction, and/or weight-based dosing when appropriate to reduce radiation dose to as low as reasonably achievable. Comparison: 07/07/2021 Findings: Bilateral pleural effusions are present, [id number], new from prior CT. Mild adjacent atelectasis/scarring. No pericardial effusion. Chronic hepatic steatosis. Gallbladder absent. Spleen unremarkable with incidental differential perfusion. No adrenal nodule. No hydronephrosis. Extensive atherosclerotic changes. No aneurysm. No pancreatic mass. Bladder is normal. Mild-moderate abdominopelvic ascites is new compared to prior CT. Normal appendix. Near-complete absence of stool within the colon with the exception of the rectum. No mechanical bowel obstruction. Small bowel loops are unremarkable. Multilevel degenerative changes. No acute fracture. No adenopathy. Left hip replacement hardware. Impression: Bilateral pleural effusions and intra-abdominal/intrapelvic ascites, new from 07/07/2021. Chronic liver disease without intrahepatic mass. No splenomegaly. Near-complete absence of colonic stool. No mechanical bowel obstruction. Please note that all CT scans at this facility use dose modulation, iterative reconstruction, and/or weight-based dosing when appropriate to reduce radiation dose to as low as reasonably achievable. Dictated by Herrera Balderas MD @ 02/15/2025 1:12:32 PM (Electronically Signed) Ordering Physician: Betty Butt M.D. Date of Service: 02/15/25 Procedure(s): US abdomen limited Accession Number(s): [id number] cc: Monico Modi M.D.; Betty Butt M.D.~ For Patients: As a result of the Cures Act, medical imaging exams and procedure reports are released immediately into your electronic medical record. You may view this report before your referring provider. If you have questions, please contact your health care provider. INDICATION: Ascites. Elevated AST. COMPARISON: CT scan of the abdomen and pelvis dated 15 February 2025. FINDINGS: Abdominal ultrasound shows nodularity of the liver contour representing cirrhosis. No focal liver lesions identified. No bile duct dilation with the common bile duct measuring 3 mm. Cholecystectomy. The pancreas is not well visualized. No abnormalities identified in the visualized portions of the right kidney. No right-sided hydronephrosis. The main portal vein measures 1.0 cm in diameter. Hepatopetal flow in the main portal vein with a flow velocity = 46.8 cm/sec. Impression : 1. Cirrhosis. No focal liver lesions identified. 2. No bile duct dilation. Dictated by Robson Moss MD @ 02/15/2025 5:33:28 PM Dictated by: Robson Moss MD @ 02/15/2025 17:33:38 (Electronically Signed) Discharge Plan Discharge Disposition: [facility] Discharge Location: [facility] Date of Admission: 02/15/25 08:35 Attending Provider on Discharge: Betty Butt Primary Care Provider: Monico Modi Condition: Stable Discharge Orders: Transfer of Care to Other Hospital (ORDER); Ordered 02/16/25 Ordered By: Betty Butt Additional Instructions: Continuous cardiac monitoring, hemodynamic monitoring Oxygen: No Urinary Catheter: No Services not available here: Cardiology
[2025-02-16 15:00] VITALS: BP 131/73; PULSE 77; PULSE 79; PULSE 96; RESP 18; RESP 26; TEMP 36.2; O2SAT 95
--- NOTE | 2025-02-16 16:32 | PC.NURSE ---
End of shift report [id number]: Pleasant and cooperative with cares. Alert and oriented with intermittent forgetfulness. Pain to abdomen managed with PRN medication and repositioning. Reports dyspnea, dyspnea managed with PRN medications. Abdomen continues to be distended, firm and tender to palpation. Bowel sounds hyperactive. Appetite fair, patient eats approximately 50% of meals. Fluid restriction of 1500 cc, patient compliant with treatment. Patient transfer to [facility], nurse to nurse report given to Evelyn at 1555, insurance underwriter called at 1630 to notify of patient leaving with EMS and in transport. Daughter present and all belongings accounted for, patient discharge at 1630.
[2025-02-18 14:18] LABS: Hep B Surface Antigen Negative (Negative); Hep C Ab by CIA Interp Negative (Negative)
== END 2025-02-16 16:30 | disposition short-term general hospital (02) | DRG 432 ==
LOC: ED 08:04 → MEDSURG 08:35
PROVIDERS: Internal Medicine; Admitting Provider Family Medicine; Emergency Provider Family Medicine; PCP Family Medicine; Visit Provider Family Medicine
DX: K74.60 Unspecified cirrhosis of liver (principal); I50.23 Acute on chronic systolic (congestive) heart failure; E87.1 Hypo-osmolality and hyponatremia; I13.0 Hypertensive heart and chronic kidney disease with heart failure and stage 1 through stage 4 chronic kidney disease, or unspecified chronic kidney disease; R18.8 Other ascites; N18.30 Chronic kidney disease, stage 3 unspecified; I08.2 Rheumatic disorders of both aortic and tricuspid valves; D69.6 Thrombocytopenia, unspecified; N31.9 Neuromuscular dysfunction of bladder, unspecified; R33.9 Retention of urine, unspecified; D64.9 Anemia, unspecified; I73.9 Peripheral vascular disease, unspecified; I25.10 Atherosclerotic heart disease of native coronary artery without angina pectoris; I44.0 Atrioventricular block, first degree; I25.2 Old myocardial infarction; Z95.5 Presence of coronary angioplasty implant and graft; Z95.1 Presence of aortocoronary bypass graft; Z95.0 Presence of cardiac pacemaker; N40.0 Benign prostatic hyperplasia without lower urinary tract symptoms; K21.9 Gastro-esophageal reflux disease without esophagitis; Z87.440 Personal history of urinary (tract) infections
CPT/HCPCS: 36415; 71046; 74019; 74177; 76705; 80048; 80074; 80076; 81001; 83880; 84295; 84484; 85025; 85610; 86140; 87493; 87631; 93005; 93306; 97116; 97162; 97165; 97535; 99284; 99285; A9270; J1171; J1938; J7030; J7131; Q9957; Q9967

== ENCOUNTER 2025-02-16 16:05 | Outpatient (CLI) | payer MEDICARE, BC, SELFPAY | END 2025-02-16 16:06 | disposition home or self-care (01) | LOC: AMB 02-18 10:00 | PROVIDERS: PCP Family Medicine; Visit Provider Family Medicine | DX: E87.1 Hypo-osmolality and hyponatremia (principal); R18.8 Other ascites; J90 Pleural effusion, not elsewhere classified; I50.20 Unspecified systolic (congestive) heart failure | CPT/HCPCS: A0425; A0427 ==

== ENCOUNTER 2025-05-12 22:38 | Emergency (ER) | payer MEDICARE, BC, SELFPAY ==
--- OUTSIDE RECORDS SUMMARY | 2025-05-12 22:40 | XMS_ITS | Data Portability ---
Author Organization [place] - [facility], auto[facility] - [facility] Address [address] [place] [address] Assessment Encounter Date Assessment Date Assessment LastModified by Organization Details LastModified Time 10/15/2024 10/15/2024 ASSESSMENT: Patient is a good candidate for conservative care and the prognosis is for a favorable outcome that achieves the patients' goals. We discussed etiology, activity modifications, home care, and other treatment options. Initially, it is recommended that the patient receive in-office treatment 1 times per week for 8 weeks at which time a re-evaluation will be performed to determine an appropriate change in plan. Initially, treatment will focus on joint manipulation to restore range of motion and reduce pain. We will slowly progress to therapeutic exercises and activities to improve function, strength, and stability may also be used as warranted. If the patient is not responding as expected, more invasive procedures will be discussed along with a referral. All considerations above were discussed with the patient and questions answered to satisfaction. If the patient should have any additional questions, or should the condition evolve or worsen, the patient should not hesitate to contact our office. Not available 10/16/2024 18:18:49 10/16/2024 10/16/2024 ASSESSMENT: Patient is a good candidate for conservative care and the prognosis is for a favorable outcome that achieves the patients' goals. We discussed etiology, activity modifications, home care, and other treatment options. Initially, it is recommended that the patient receive in-office treatment 1 times per week for 8 weeks at which time a re-evaluation will be performed to determine an appropriate change in plan. Initially, treatment will focus on joint manipulation to restore range of motion and reduce pain. We will slowly progress to therapeutic exercises and activities to improve function, strength, and stability may also be used as warranted. If the patient is not responding as expected, more invasive procedures will be discussed along with a referral. All considerations above were discussed with the patient and questions answered to satisfaction. If the patient should have any additional questions, or should the condition evolve or worsen, the patient should not hesitate to contact our office. Not available 10/16/2024 18:20:09 10/17/2024 10/17/2024 ASSESSMENT: Patient is a good candidate for conservative care and the prognosis is for a favorable outcome that achieves the patients' goals. We discussed etiology, activity modifications, home care, and other treatment options. Initially, it is recommended that the patient receive in-office treatment 1 times per week for 8 weeks at which time a re-evaluation will be performed to determine an appropriate change in plan. Initially, treatment will focus on joint manipulation to restore range of motion and reduce pain. We will slowly progress to therapeutic exercises and activities to improve function, strength, and stability may also be used as warranted. If the patient is not responding as expected, more invasive procedures will be discussed along with a referral. All considerations above were discussed with the patient and questions answered to satisfaction. If the patient should have any additional questions, or should the condition evolve or worsen, the patient should not hesitate to contact our office. Not available 10/17/2024 13:16:04 Plan of Treatment Reminders Order Date Submit Date Provider Last Modified By Organization Details Last Modified Time Details Appointments None record ed. Lab None record ed. Referral None record ed. Procedures None record ed. Surgeries None record ed. Imaging None record ed. Medication Orders None record ed. Patient TargetsNo targets recorded. Patient InstructionsNo instructions recorded. Reason for Referral None Reported. 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 Procedures Surgical History Date Name Laterality Status Provider Name and Address Organization Details Recorded Time 47619: Spinal manipulation , 3 to 4 regions completed Diaz López DC [address], [place], [address], [facility] 10/17/2024 13:16:04 38767: Spinal manipulation , 3 to 4 regions completed Diaz López MA [address], [place], [address], [facility] 10/16/2024 18:20:08 09162: Spinal manipulation , 3 to 4 regions completed Diaz López DC [address], [place], [address], [facility] 10/16/2024 18:19:15 Imaging Results None recorded. Procedure Notes None recorded. Medical Equipment None Reported. Vitals None Recorded Social History None recorded. Functional Status None recorded. Mental Status None recorded. Family History Nothing Reported. Medical History No medical history recorded. Past Encounters Encounter ID Performer Location Encounter Start Date Encounter Closed Date Diagnosis/Indication Diagnosis SNOMED-CT Code Diagnosis ICD10 Code Diagnosis IMO Codes Diagnosis Note [id number] Diaz López DENISE [facility] [address] [place] [address] 10/15/2024 16:32:47 10/31/2024 19:08:04 Lumbar segmental dysfunction 166073037 M99.03 Low back pain 466105214 M54.50 Somatic dy sfunction of sacral spine 634541782 M99.04 Thoracic s egmental dysfunction 528609094 M99.02 [id number] Diaz Mclean DENISE López [facility] [address] [place] [address] 10/16/2024 09:21:00 10/16/2024 18:27:22 Lumbar segmental dysfunction 611040337 M99.03 Low back pain 602409992 M54.50 Somatic dy sfunction of sacral spine 001355714 M99.04 Thoracic s egmental dysfunction 473976072 M99.02 [id number] Diaz Mclean DENISE López [facility] [address] [place] [address] 10/17/2024 09:16:17 10/17/2024 15:43:08 Lumbar segmental dysfunction 386068739 M99.03 Low back pain 335018608 M54.50 Somatic dy sfunction of sacral spine 654378695 M99.04 Thoracic s egmental dysfunction 028318549 M99.02 Health Concerns Section Related Observation LastModified by Organization Detai ls LastModified Time None Recorded Concern Status LastModified by Organization Details LastModified Time None Recorded Advance Directives Directive None Recorded Payers Insurance Date Sequence Insurance Name Policy Number Policy Coelho Covered Member ID Coelho Member ID Guarantor Name 11/05/2024 1 [place] [employer] [facility] Anish Velazquez [id number] Anish Velazquez 10/15/2024 1 [place] [employer] Anish Velazquez [id number] Anish Velazquez 11/04/2024 2 [facility] [id number] Anish Velazquez [id number] Anish Velazquez 11/14/2024 2 [employer]PEC[employer]IED [employer] Anish Velazquez Notes Date Note Type Note Provider Name and Address Organization Details Recorded Time 10/15/2024 text/html HPI - Lumbar SpineReported by PatientHPIFor location, patient reportsleft. For quality, patient reportsaching. For severity, patient reportsmoderate. For timing, patient reportsmorning. For aggravating factors, patient reportswalking,lift ing,carrying, andtwisting. For alleviating factors, patient reportsrest. Diaz López DC [address], [place], [address], [facility] 10/16/2024 18:19:29 10/16/2024 text/html HPI - Lumbar SpineReported by PatientHPIFor location, patient reportsleft. For quality, patient reportsaching. For severity, patient reportsmoderate. For timing, patient reportsmorning. For aggravating factors, patient reportswalking,lift ing,carrying, andtwisting. For alleviating factors, patient reportsrest. Diaz López DC [address], [place], [address], [facility] 10/16/2024 18:20:36 10/17/2024 text/html HPI - Lumbar SpineReported by PatientHPIFor location, patient reportsleft. For quality, patient reportsaching. For severity, patient reportsmoderate. For timing, patient reportsmorning. For aggravating factors, patient reportswalking,lift ing,carrying, andtwisting. For alleviating factors, patient reportsrest. Diaz López DC [address], [place], [address], [facility] 10/17/2024 13:16:28
--- OUTSIDE RECORDS SUMMARY | 2025-05-12 22:40 | XMS_ITS | Data Portability ---
Author Organization [place] [facility], [facility] Address [address] [place] [address] [address] [place] [address] Care Team Providers Care Engine Cleaner Name Role Phone CONNOR MIKE Primary Care Provider Assessment No assessment recorded. Plan of Treatment Reminders Order Date Submit Date Provider Last Modified By Organization Details Last Modified Time Details Appointments None recorded. Lab culture, urine 2024 025 [facility], [address], [address], [place], [address], 12:25:56 infectious disease panel - n/a 2024 025 [place] [facility], [address] [place] [address], [address], [place], [address], 15:25:36 Referral None recorded. Procedures None recorded. Surgeries None recorded. Imaging None recorded. Medication Orders None recorded. Patient TargetsNo targets recorded. Patient Instructions Encounter Date Encounter Id Patient Instructions Last Modified By Organization Details Last Modified Time 12/20/2021 [id number] Needs to follow up with PF [email or web address] Not available 12/20/2021 15:03:05 Reason for Referral None Reported. Results Created Date Observation Date Name Description Value Unit Range Abnormal Flag Note LastModifiedBy Organization Detail LastModifiedTime 08/07/1908/06/2024 URINA LYSIS glucose Normal Not Available [facility] [place] [address] [facility] [address], [place], [address], 08/07/2024 15:20:48 08/07/1908/06/2024 URINA LYSIS protein Negati ve Not Available [facility] [place] [address], [place], [address], 08/07/2024 15:20:48 08/07/19 25 08/06/2024 URINA LYSIS bilirubin Negati ve Not Available [facility] [place] [address], [place], [address], 08/07/2024 15:20:48 08/07/19 25 08/06/2024 URINA LYSIS urobilinogen Normal Not Available [facility] [address], [place], [address], 08/07/2024 15:20:48 08/07/19 25 08/06/2024 URINA LYSIS pH 6.0 Not Available [facility] [address], [place], [address], 08/07/2024 15:20:48 08/07/19 25 08/06/2024 URINA LYSIS blood Negati ve Not Available [facility] [place] [address], [place], [address], 08/07/2024 15:20:48 08/07/19 25 08/06/2024 URINA LYSIS ketone Negati ve Not Available [facility] [place] [address], [place], [address], 08/07/2024 15:20:48 08/07/19 25 08/06/2024 URINA LYSIS nitrite Negati ve Not Available [facility] [place] [address], [place], [address], 08/07/2024 15:20:48 08/07/19 25 08/06/2024 URINA LYSIS leukocytes Negati ve Not Available [facility] [place] [address], [place], [address], 08/07/2024 15:20:48 08/07/19 25 08/06/2024 URINA LYSIS clarity Clear Not Available [facility] [address], [place], [address], 08/07/2024 15:20:48 08/07/19 25 08/06/2024 URINA LYSIS specific gravity 1.008 Not Available [facility] [address] [facility] [address], [place], [address], 08/07/2024 15:20:48 08/07/19 25 08/06/2024 URINA LYSIS color LIGHT YELLOW Not Available [facility] [place] [address] [facility] [address], [place], [address], 08/07/2024 15:20:48 08/28/19 25 08/27/2024 URINE CULTU RE final report MICROB IOLOGY RESULT S SOURC E Analisa teriz ed-[facility] t KNOWN ALLER GIES Penic illin s , cipro , eryth romyc in TREAT MENT none MEDIA PLATE D AT: Media plate d on 2024 @ 4:16 PM RESUL T No Growt h This lab resul t is being provi ded to you and your provi gregg at the same time in compl iance with the Centu ry Cures Act. Your provi gregg may not have had time to revie w and make recom menda tions based on the resul t. Plekalin e allow up to one week for provi gregg revie w. Not Available [facility] [address] [facility] [address], [place], [address], 08/30/2024 12:25:56 07/30/19 25 07/24/2024 US, bladd er No observ ation record ed. [email or web address] Not Available 2024 10:48:40 08/20/19 25 08/19/2024 CT, urogr am No observ ation record ed. [place] Tsang [place] [address] [facility], [place], [address], 08/19/2024 22:02:43 Result Notes None recorded. Procedures Surgical History Date Name Laterality Status Provider Name and Address Organization Details Recorded Time Cystoscopy- male completed Sulaiman Romano MD [address] [facility],[address], [address], [facility] 08/27/2024 17:49:13 5 Urinalysis completed Iva Queen-Cathy ero [facility] 08/22/2024 16:31:13 5 Bladder Scan completed Iva Guptarigal-Cathy ero [facility] 08/06/2024 14:22:19 2 Colon Catheter Removal completed Marielena Hope [facility] 12/20/2021 15:01:26 Imaging Results None recorded. Procedure Notes None recorded. Medical Equipment None Reported. Allergies Allergen ID Allergen Name Allergen Category Reaction Reaction Severity Criticality Documentation Date Start Date Code Code System Note Provider Name and Address Organization Details Recorded Time 268099 Product containin g penicilli n (product) medicatio n Not available Not available Not available 08/06/2024 85503 8001 SNOMED Iva [facility]arigalRebecca [facility] 5 14:09:07 970632 erythromy derek medicatio n Not available Not available Not available 08/06/2024 4053 RxNorm Iva Guptarigal- Neeta [facility], [facility] 5 14:11:30 309527 amitripty line medicatio n Not available Not available Not available 08/06/2024 704 RxNorm Iva Guptarigal- Neeta [facility], [facility] 5 14:11:47 298116 amlodipin e medicatio n Not available Not available Not available 08/06/2024 04947 RxNorm Ciprianoi Queen- Neeta [facility], [facility] 5 14:12:00 767917 ciproflox acin medicatio n rash Not available Not available 08/27/20242014 2551 RxNorm Sever e Hives [facility]- Neeta [facility] 5 16:47:22 178658 citalopra m medicatio n diarrhea Not available Not available 08/27/20242013 2556 RxNorm Kikeetznora Santacruz [facility] 5 16:47:27 925268 escitalop milli Not available Not available Not available Not available 08/27/20242015 91207 8 RxNorm Feeli ngs of depre ssion . unrec ogniz ed react ion (text : Menta l Statu s Castillo e, code: [id number]) [facility] Iva Queen Neeta [facility] 5 16:47:31 163797 ezetimibe medicatio n Not available Not available Not available 08/27/20242011 66783 8 RxNorm unrec ogniz ed react ion (text : Nause a And Vomit ing, code: [id number]) [facility] 16:47:35 519189 hydrochlo rothiazid e medicatio n myalgias (muscle pain) Not available Not available 08/27/20242015 5487 RxNorm [facility]amp [facility] 16:47:37 Medications Name Sig Start Date Stop Date Status Note LastModified by Organization Details LastModified Time coloplast ref 614 fr14 male PERFORM SELF-CATH ETERIZATI ON UP TO 5 TIMES A DAY NEEDED FOR URINARY RETENTION active Not Available Not Available No t Available atorvastati n 80 mg tablet Take 1 tablet every day by oral route. active Not Available Not Available No t Available sennosides 8.6 mg tablet Take 2 tablets every day by oral route. active Not Available Not Available No t Available clonidine HCl 0.1 mg tablet Take 1 tablet twice a day by oral route. active Not Available Not Available No t Available carvedilol 6.25 mg tablet Take 1 tablet twice a day by oral route. active Not Available Not Available No t Available carvedilol 12.5 mg tablet Take 1 tablet twice a day by oral route. active Not Available Not Available No t Available ketoconazol e 2 % shampoo WASH TO AFFECTED AREA ON EAR AND CHEST 2-3 TIMES WEEKLY WEEKLY IN THE SHOWER LATHER AND LET SIT FOR SEVERAL MINUTES BEFORE RINSING active Not Available Not Available No t Available torsemide 20 mg tablet Take 1 tablet every day by oral route. active Not Available Not Available No t Available polyethylen e glycol 3350 17 gram oral powder packet Take by oral route. active Not Available Not Available No t Available simethicone 125 mg capsule Take by oral route. active Not Available Not Available No t Available omeprazole 40 mg capsule,del ayed release Take 1 capsule every day by oral route. active Not Available Not Available No t Available triamcinolo ne acetonide 0.1 % topical cream WHEN ITCHY APPLY TO AFFECTED AREA ON EARS AND CHEST 1-2X DAILY FOR 2 WEEKS AT A TIME REPEAT NEEDED FOR FLARES 08/27 completed Not Available Not Available Not Available pramipexole 0.5 mg tablet Take 1 tablet 3 times a day by oral route. active Not Available Not Available No t Available magnesium oxide 400 mg (241.3 mg magnesium) tablet Take by oral route. active Not Available Not Available No t Available hydrocortis one 1 % topical cream APPLY A THIN LAYER TO THE AFFECTED AREA(S) BY TOPICAL ROUTE 2 TIMES PER DAY active Not Available Not Available No t Available nitroglycer in 0.[address] by sublingua l route. active Not Available Not Available No t Available nitrofurant oin monohydrate /macrocryst als 100 mg capsule TAKE ONE CAPSULE BY MOUTH TWICE DAILY FOR 5 DAYS active Not Available Not Available No t Available melatonin active Not Available Not Joanna ilable Not Available Multivitami n 50 Plus active Not Available Not Available No t Available apixaban 5 mg tablet Take 1 tablet twice a day by oral route. active Not Available Not Available No t Available potassium chloride 10 mEq oral packet Take 1 packet twice a day by oral route. active Not Available Not Available No t Available Vitals Date Recorded Body height Body mass index (BMI) Body weight Provider Name and Address Organization Details Last Updated DateTime 08/06/2024 167.64 cm 25.2 kg/m2 43973.41 g Iva ellis [place] [facility] 08/06/2024 14:07:52 Date Recorded Body height Body mass index (BMI) Body weight Provider Name and Address Organization Details Last Updated DateTime 08/27/2024 167.64 cm 25.2 kg/m2 03335.41 g Iva Verduzco ero [facility] 08/27/2024 16:47:15 Social History Question Answer Notes LastModified by Organizat ion Details LastModified Time Tobacco Smoking Status Never Smoker Iva Verduzcoero null, [facility] 08/06/2024 14:10:13 What Is Your Level Of Caffeine Consumption? Occasional Information not available 08/06/2024 What Was The Date Of Your Most Recent Tobacco Screening? 08/27/2024 Information not available 08/27/2024 Sex: Male Functional Status Question Answer Note LastModified by Organization D etails LastModified Time What is your level of alcohol consumption? None Information not available 08/06/2024 Mental Status None recorded. Family History Relationship Description Onset Age of this Age Resolved Age Notes LastModified by Organization Details LastModified Time Sister Family history of malignant neoplasm of liver mm[place]rig[place] ro Not available 08/06/2024 14:20:26 Medical History Condition Response Diabetes N Bleeding Disorder N High Blood Pressure Y Kidney Stones N High Cholesterol N GERD/Acid Reflux Y Heart Disease Y Cancer N Lung Disease N Depression N Immunizations Vaccine Type Date Status Note Provider Nam e and Address Organization Details Recorded Time Influenza, adjuvanted, trivalent, PF 8 completed Iva Queen-Dorene ro null, [facility] 08/06/2024 14:08:15 Influenza, adjuvanted, trivalent, PF 7 completed Kikesharoni [facility], [facility]06/[facility] 14:08:16 Influenza, adjuvanted, trivalent, PF 4 completed Kikesharoni Queen-[place]uch[place] ro null, [facility] 08/06/2024 14:08:16 Influenza, adjuvanted, trivalent, PF 9 completed Kikesharoni Queen-[place]uch[place] ro null, [facility] 08/06/2024 14:08:16 zoster recombinant 8 completed Ciprianoi Queen-Dorene ro null, [facility] 08/06/2024 14:08:16 zoster recombinant 8 completed Miletzi Queen-Wauchula ro null, [facility] 08/06/2024 14:08:16 Influenza, adjuvanted, quadrivalent, PF 0 completed Miletzi Queen-Dorene ro null, [facility] 08/06/2024 14:08:16 Influenza, adjuvanted, quadrivalent, PF 2 completed Miletzi Queen-Dorene ro null, [facility] 08/06/2024 14:08:16 Influenza, adjuvanted, quadrivalent, PF 1 completed Miletzi Queen-[place]uchula ro null, [facility] 08/06/2024 14:08:16 Influenza, adjuvanted, quadrivalent, PF 3 completed Miletzi Queen-Wauchula ro null, [facility] 08/06/2024 14:08:16 COVID-19, mRNA, LNP-S, PF, 100 mcg/0.5mL dose or 50 mcg/0.25mL dose 1 completed Miletzi Queen-Dorene ro null, [facility] 08/06/2024 14:08:16 COVID-19, mRNA, LNP-S, PF, 100 mcg/0.5mL dose or 50 mcg/0.25mL dose 1 completed Miletzi Queen-[place]uch[place] ro null, [facility] 08/06/2024 14:08:16 Pneumococcal conjugate PCV20, polysaccharide [id number] conjugate, adjuvant, PF 2 completed Miletzi Queen-Dorene ro null, [facility] 08/06/2024 14:08:16 COVID-19, mRNA, LNP-S, PF, 30 mcg/0.3 mL dose, nelda-sucrose 2 completed Miletzi Queen-Wauchula ro null, [facility] 08/06/2024 14:08:16 COVID-19, mRNA, LNP-S, PF, 30 mcg/0.3 mL dose, nelda-sucrose 2 completed Miletzi Queen-Wauchula ro null, [facility] 08/06/2024 14:08:16 COVID-19, mRNA, LNP-S, bivalent, PF, 30 mcg/0.3 mL dose 2 completed Miletzi Queen-Wauchula ro null, [facility] 08/06/2024 14:08:16 RSV, recombinant, protein subunit RSVpreF, adjuvant reconstituted, 0.5 mL, PF 3 completed Miletzi Queen-Wauchula ro null, [facility] 08/06/2024 14:08:16 COVID-19, mRNA, LNP-S, PF, 50 mcg/0.5 mL 5 completed Miletzi Queen-Wauchula ro null, [facility] 08/06/2024 14:08:16 pneumococcal polysaccharide PPV23 6 completed Miletzi Queen-Dorene ro null, [facility] 08/06/2024 14:08:16 Tdap 5 completed Miletzi Queen-Dorene ro null, [facility] 08/06/2024 14:08:16 Tdap 5 completed Miletzi Queen-Dorene ro null, [facility] 08/06/2024 14:08:16 Novel Brkviiyam-[id number], all formulations 0 completed Miletzi Queen-Dorene ro null, [facility] 08/06/2024 14:08:16 Pneumococcal conjugate PCV 13 5 completed Miletzi Queen-Wauchula ro null, [facility] 08/06/2024 14:08:16 pneumococcal, unspecified formulation 1 completed Miletzi Queen-Dorene ro null, [facility] 08/06/2024 14:08:16 zoster live 7 completed Miletzi Queen-Dorene ro null, [facility] 08/06/2024 14:08:16 Influenza, high-dose, trivalent, PF 5 completed Miletzi Queen-Wauchula ro null, [facility] 08/06/2024 14:08:16 Influenza, high-dose, trivalent, PF 6 completed Miletzi Queen-Dorene ro null, [facility] 08/06/2024 14:08:16 Influenza, split virus, trivalent, preservative 9 completed Miletzi Queen-Wauchula ro null, [facility] 08/06/2024 14:08:16 Influenza, split virus, trivalent, preservative 2 completed Miletzi Queen-Dorene ro null, [facility] 08/06/2024 14:08:16 Influenza, split virus, trivalent, preservative 3 completed Miletzi Queen-Wauchula ro null, [facility] 08/06/2024 14:08:16 Influenza, split virus, trivalent, preservative 3 completed Miletzi Queen-[place]uch[place] ro null, [facility] 08/06/2024 14:08:16 Influenza, split virus, trivalent, preservative 8 completed Miletzi Queen-Dorene ro null, [facility] 08/06/2024 14:08:16 Influenza, split virus, trivalent, preservative 6 completed Miletzi Queen-Wauchula ro null, [facility] 08/06/2024 14:08:16 Influenza, split virus, trivalent, preservative 4 completed Miletzi Queen-Dorene ro null, [facility] 08/06/2024 14:08:16 Influenza, split virus, trivalent, preservative 7 completed Miletzi Queen-Dorene ro null, [facility] 08/06/2024 14:08:16 Influenza, split virus, trivalent, preservative 5 completed Miletzi Queen-Dorene ro null, [facility] 08/06/2024 14:08:16 Influenza, split virus, trivalent, PF 0 completed Miletzi Queen-Wauchula ro null, [facility] 08/06/2024 14:08:16 Influenza, split virus, trivalent, PF 1 completed Iva Queen-Wauchula ro null, [facility] 08/06/2024 14:08:16 Td (adult), 5 Lf tetanus toxoid, preservative free, adsorbed 6 completed Cipriano Bret-Dorene ro null, [facility] 08/06/2024 14:08:16 Influenza, split virus, quadrivalent, PF 4 completed Iva Queen-Wauchula ro null, [facility] 08/06/2024 14:08:16 Past Encounters Encounter ID Performer Location Encounter Start Date Encounter Closed Date Diagnosis/Indication Diagnosis SNOMED-CT Code Diagnosis ICD10 Code Diagnosis IMO Codes Diagnosis Note [id number] MD GLO De León_Norma Zuujit [address] [place] [address] 12/20/2021 14:24:43 12/23/2021 03:53:18 Retention of urine 568953804 R33.9 Patient went into retention after an angiogram and was not able to self cath. He caths 6-7 times a day, for the last 10 years. Removed colon and used own cath to make sure he was able- did fine. [id number] MD GLO De León_Norma Zuuj[address] [place] [address] 08/06/2024 13:39:32 08/08/2024 16:43:30 Urinary tract infectious disease 49927692 N39.0 1. UTI- check [facility]- if negative - recommend further evaluation with CT Urogram and Cystoscopy Retention of urine 03182 4002 R33.9 2. Urinary retention- s/p TURP - (2005) - Dr. Shen- consider further evaluation with Urodynamic study- continue self-cath - 16 Fr coude 5x/day [id number] MD GLO De León_[place]forest Zuujit [address] [place] [address] 08/27/2024 16:01:52 08/30/2024 11:23:52 Urinary tract infectious disease 41088799 N39.0 1. Recurrent UTIs- last UCx was negative- check UCx today- reviewed CT Urogram (08/19/24) images- no stones, renal masses, or hydronephr osis - Left - small cyst (upper pole) - Bladder - slight right-side d eccentric wall thickening (similar to 2018)- Cystoscopy (08/27/24) - obstructin g apical prostate tissue, TUR-defect in prostate - no tumor in bladder(no source for recurrent UTIs seen - likely due to self-jose ng)- recommend checking UCx if he has symptoms Retention of urine 27154 4002 R33.9 3. Urinary retention- s/p TURP - (2005) - Dr. Shen- consider further evaluation with Urodynamic study- continue self-cath - 16 Fr coude 6x/day Pain in penis 405519408 N48.89 2. Penile pain- may have been due to UTI or prostate irritation - if pain returns and UCx is negative - consider trying Flomax 0.4 mg daily (may help with prostate irritation ) Health Concerns Section Related Observation LastModified by Organization Detai ls LastModified Time None Recorded Concern Status LastModified by Organization Details LastModified Time None Recorded Advance Directives Directive None Recorded Payers Insurance Date Sequence Insurance Name Policy Number Policy Coelho Covered Member ID Coelho Member ID Guarantor Name 02/12/2025 1 [place]IC[place]: [employer] Anish Velazquez [id number] Anish Velazquez 02/12/2025 2 [facility] [id number] Anish Velazquez [id number] Anish Velazquez Notes Date Note Type Note Provider Name and Address Organization Details Recorded Time 08/06/2024 text/html 84 yo male with history of CAD (on Eliqius and ASA 81 mg), PAD, hyperlipidemia, CKD (stage 3), GERD, neuralgia, and BPH / retention. He self-caths with 16 Fr coude catheter.- s/p TURP - (2005) - Dr. Shen- Cystoscopy - (04/30/18) - open TUR defect with residual lateral lobe enlargement. 08/06/24 - He presents for evaluation of cloudy urine and penile pain (head). He denies trouble with self-cathing. He took 2 days of Clindamycin (last dose on 08/03/24) and his penile pain resolved. He denies F/C/S.- PVR = 318 mL PSA - 1.06 (08/22/05)- 0.91 (03/06/07)- 0.95 (03/14/08)- 0.83 (09/10/15)- 0.48 (09/08/16)- 0.48 (09/06/18)CT scan (02/07/18) - Bladder wall thickening on Right anterior bladder wall UA (06/14/24) - + LEUCx (06/14/24) - negativeUCx )07/11/24) - negative Sulaiman Romano MD [address] [place] [address],[address], [address] 08/06/2024 15:20:40 08/27/2024 text/html 84 yo male with history of CAD (on Eliqius and ASA 81 mg), PAD, hyperlipidemia, CKD (stage 3), GERD, neuralgia, and BPH / retention. He self-caths with 16 Fr coude catheter.- s/p TURP - (2005) - Dr. Shen- Cystoscopy - (04/30/18) - open TUR defect with residual lateral lobe enlargement. 08/06/24 - He presents for evaluation of cloudy urine and penile pain (head). He denies trouble with self-cathing. He took 2 days of Clindamycin (last dose on 08/03/24) and his penile pain resolved. He denies F/C/S. 08/27/24 - He presents for follow-up on urinary tract infections and penile head pain. He denies penile pain currently. CT scan (08/19/24) revealed possible right bladder wall thickening. _PSA - 1.06 (08/22/05)- 0.91 (03/06/07)- 0.95 (03/14/08)- 0.83 (09/10/15)- 0.48 (09/08/16)- 0.48 (09/06/18)CT scan (02/07/18) - Bladder wall thickening on Right anterior bladder wallCT Urogram (08/19/24) - no stones, renal masses, or hydronephrosis - Left - small cyst (upper pole) - Bladder - slight right-sided eccentric wall thickening (similar to 2018) UA (06/14/24) - + LEUCx (06/14/24) - negativeUCx (07/11/24) - negativeUCx ([facility]) - (08/06/24) - negative Sulaiman Romano MD [address] [facility],[address], [place], [address], [facility] 08/27/2024 17:55:27
--- OUTSIDE RECORDS SUMMARY | 2025-05-12 22:41 | XMS_ITS | Clinical Summary ---
Author Organization [employer] [facility] Address [address] [place] [address] Care Team Providers Care Care Administrative Tech Name Role Phone Yong Siddiqi MD Unavailable FlygenDillan reid MD Unavailable Rowan vailable Connor Modi MD Primary Care Provider Nurses, Advanced Heart Failure Unavailable + Felipe Kaur MD Unavailable [phone] Allergies Active Allergy Reactions Criticality Noted Date Comments Amlodipine Other - Describe In Comment Field 09/04/2023 Low pressures on just 2.5mg. Citalopram Diarrhea 07/23/2013 Ciprofloxacin Rash 02/16/2015 Severe Hives Coenzyme Q10 Myalgia 11/27/2015 Rosuvastatin Rash 06/10/2012 Amitriptyline Confusion,Insomnia 02/17/2012 Erythromycin Edema,Hives High 11/01/2006 Hydrochlorothiazide Myalgia 09/14/2015 cramps from therapy. Escitalopram Mental Status Change 11/12/2015 Feelings of depression. Penicillins Hives High 11/01/2006 ##No similarities in side chains, very low to no risk of cross-sensitivity to ANCEF. [facility] Antimicrobial Stewardship Team 03/2019 Sulindac Sedation 12/02/2010 Ezetimibe Nausea And Vomiting 09/09/2011 Medications multivitamins-mine rals-lutein (MULTIVITAMIN 50 PLUS) tab tablet Take 1 tablet by mouth once daily in the evening. Active Sennosides 8.6 mg cap Take 8.6 mg by mouth once daily. 4 Active nitroglycerin (NITROSTAT) 0.4 mg sublingual tabletIndications: Chest pain, unspecified DISSOLVE ONE TABLET UNDER TONGUE EVERY 5 MINUTES NEEDED FOR CHEST PAIN FOR UP TO 3 TIMES, IF NO RELIEF, CALL 911.If patient requesting greater than 25 doses in 30 days, to provider to authorize 25 Tablet 4 Active Catheter miscIndications:Re tention of urine, unspecified As directed. 144 Each 11 4 Active apixaban (ELIQUIS) 5 mg tabletIndications: Atrial flutter, unspecified type (HC) Take 1 Tablet (5 mg) by mouth two times daily. 180 Tablet 3 5 Active melatonin 3 mg tabletIndications: Insomnia due to medical condition Take 1 Tablet (3 mg) by mouth at bedtime if needed for Sleep. 90 Tablet 3 5 Active atorvastatin (LIPITOR) 80 mg tabletIndications: Hyperlipidemia, unspecified hyperlipidemia type Take 1 Tablet (80 mg) by mouth once daily with evening meal. 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 Do not stop taking or miss doses for minimum one year/ until OK'd by brick mason. 30 Tablet 11 02/20/2025 12:46 PM CDT 5 Active torsemide (DEMADEX) 20 mg tabletIndications: HFrEF (heart failure with reduced ejection fraction) (HC) Take 2 Tablets (40 mg) by mouth once daily. 60 Tablet 02/21/2025 12:55 PM CDT 5 Active carvediloL (Coreg) 12.5 mg tabletIndications: Essential hypertension,NSVT (nonsustained ventricular tachycardia) (HC) Take 1 Tablet (12.5 mg) by mouth two times daily. 180 Tablet 5 Active Simethicone 125 mg chewable tabletIndications: Dyspepsia Chew 1 Tablet (125 mg) by mouth 4 times daily if needed for Flatulence. Max dose: 500 mg per 24 hrs 5 Active magnesium oxide (MAG-OX 400) 400 mg tabletIndications: Low magnesium level TAKE ONE TABLET (400 MG) BY MOUTH ONCE DAILY IN THE EVENING 90 Tablet 3 5 Active thiamine (VITAMIN B1) 100 mg tabletIndications: Cardiovascular symptoms Take 1 Tablet (100 mg) by mouth once daily. 90 Tablet 1 5 Active valsartan (DIOVAN) 40 mg tabletIndications: HFrEF (heart failure with reduced ejection fraction) (HC) Take 0.5 Tablets (20 mg) by mouth two times daily. 90 Tablet 3 5 Active fluticasone (50 mcg per actuation) nasal solution (FLONASE)Indicatio ns:Eustachian tube dysfunction, right Inhale 2 Sprays in both nostrils once daily. 16 g 3 5 Active sodium chloride (OCEAN) 0.65 % nasal solutionIndication s:ETD (Eustachian tube dysfunction), right,Nasal mucosa dry Inhale 1 [place] into affected nostril(s) two times daily. Can use as much as needed- but at least once a day 45 mL 11 5 Active spironolactone 25 mg tabletIndications: Tricuspid valve insufficiency, unspecified etiology Take 0.5 Tablets (12.5 mg) by mouth once daily. 45 Tablet 3 5 Active empagliflozin (JARDIANCE) 10 mg tabletIndications: Tricuspid valve insufficiency, unspecified etiology Take 1 Tablet (10 mg) by mouth once daily. 30 Tablet 11 5 Active omeprazole (PRILOSEC) 40 mg Delayed-Release capsuleIndications :Chronic GERD Take 1 Capsule (40 mg) by mouth once daily before a meal. 90 Capsule 3 5 Active Active Problems Patient Care Coordination No te Formatting of this note migh t be different from the original. HF/Structural/Prevention Research Eligibility Review Date: 06/26/19 Upcoming Visit Location: [facility] Age: 79 y.o. Medicare/Medicaid EF: 50 Valve/Imaging: mild AR, mild TR, trace MR Comments: HF: DNQ Structural: No significant valve disease Prevention: DNQ Problem Noted Date Diagnosed Date Acute on chronic HFrEF (hear t failure with reduced ejection fraction) 02/16/2025 HFrEF (heart failure with reduced ejection fract [...] a medium sized inferior infarction with mild heydi-infarction ischemia. This is probably [...] 07/12/2010 03/08/2011 ARTERIOSCLEROTIC HEART DISEASE 03/30/2010 03/30/2010 FPC (current) use of anticoagulants 09/15/2009 03/08/2011 Overview (09/15/2009): INR Goal Range: 1.5 - 20 Diarrhea 02/17/2009 03/08/2011 Overview (02/17/2009): -with Pletal PVD (peripheral vascular disease) 11/26/2008 03/08/2011 PAD (Peripheral Artery Disea se) with claudication--s/p L iliac stent 98;SEED ANALYST L popliteal 02-17-09 10/28/2008 12/13/2011 Overview (11/24/2011): S/p Left common femoral endarterectomy and R SFA stent (11/23/2011) Other dyspnea and respiratory abnormality 03/17/2008 03/08/2011 Dizziness and giddiness 01/22/2008/07/2021 Shortness of breath 01/22/2008 03/08/20 11 Esophageal reflux 07/10/2007 07/26/2012 Overview (07/02/2013): EGD 06/2009 benign gastric polyps EGD 06/2013 benign gastric polyps Cor Athrscl-Uns Vessel 10/03 Overview (02/17/2009): -prior NV's in 1995, 2000 -CABG 1995 -Multiple PCI with 8 stents, last 03/12 -Myoview in 08/11 with fixed inferior defect, minimal heydi-infarct ischemia, LVEF 60% Pure hypercholesterolemia Unspecified Essential Hypertension 12/13/2011 Other and Unspecified Hyperlipidemia 02/17/2012 Critical limb ischemia of le ft lower extremity 09/26/2023 Encounters Date Type Department Care Team Description 05/12/2025 Results Follow-Up [facility] [address] [place] [address] Brittney Francisco MD 05/09/2025 2:45 PM ELEMENTARY EDUCATION TEACHER Orders Only [facility] [address] [place] [address] Lab, [place] Lab 05/09/2025 Travel 04/30/2025 Orders Only [facility] [address] [place] [address] Brittney Francisco MD <No scans attached> 04/30/2025 Telephone [facility] [address] [place] [phone] Felipe Kaur MD Results (BMP) 04/29/2025 9:00 AM ELEMENTARY EDUCATION TEACHER Office Visit [facility] [address] [place] [address] Brittney Francisco MD Follow Up (Coronary artery disease /Echo 02/19/2025 /Pace maker ) 04/29/2025 Travel 04/28/2025 Telephone [facility] [address] [place] [phone] Yasmine Woods, RN Device Check (AF Alert) 04/01/2025 3:00 PM CDT Office Visit [facility] [place] [address] [place] [phone] Felipe Kaur MD CV Heart Failure New (Appointment Note//SEGUNDO NEW PT REF BY DR [facility] PRIOR DONE AT [facility]//) 04/01/2025 Travel 03/27/2025 10:00 AM CDT Home Care Visit [facility] [address] [place] [address] Iliana Van, RN SN - OASIS DISCHARGE 03/27/2025 8:00 AM CDT Home Care Visit [facility] [address] [place] [phone] Luh Haro SUPERVISING DEPUTY - HOME VISIT 03/24/2025 12:00 PM CDT Home Care Visit [facility] [address] [place] [phone] Luh Haro SUPERVISING DEPUTY - HOME VISIT 03/24/2025 9:00 AM CDT Home Care Visit [facility] [address] [place] [phone] Carrillo Horowitz, GABRIEL PT - DISCIPLINE DISCHARGE 03/19/2025 12:00 PM CDT Home Care Visit [facility] [address] [place] [phone] Luh Haro SUPERVISING DEPUTY - HOME VISIT 03/19/2025 8:00 AM CDT Office Visit [address] [phone] Anne-Marie Corley PA Consult (Eustachian tube dysfunction, right) 03/19/2025 7:30 AM CDT Office Visit [address] [phone] Anne-Marie Parr AuD Ear Problem (Hearing test ) 03/19/2025 Travel 03/18/2025 1:30 PM CDT Home Care Visit [facility] [address] [place] [phone] Iliana Van, RN SN - HOME VISIT 03/18/2025 12:00 PM CDT Home Care Visit [facility] [address] [place] [phone] Carrillo Horowitz, PT PT - HOME VISIT 03/17/2025 7:00 AM CDT Home Care Visit [facility] [address] [place] [address] Luh Haro SUPERVISING DEPUTY - HOME VISIT 03/17/2025 Orders Only [facility] [place] [address] [place] [address] Felipe Kaur MD <No scans attached> 03/14/2025 7:00 AM CDT Home Care Visit [facility] [address] [place] [phone] Luh Haro SUPERVISING DEPUTY - HOME VISIT 03/14/2025 Telephone [facility] [place] [address] [place] [address] Felipe Kaur MD Lab 03/14/2025 Orders Only [facility] [place] [address] [place] [address] Preston Wheeler MD, PhD CV Heart Failure Est ([facility]) 03/13/2025 3:45 PM CDT Office Visit [facility] [address] [place] [address] Connor Modi MD Follow Up 03/13/2025 Travel 03/10/2025 12:00 PM CDT Home Care Visit [facility] [address] [place] [phone] Lizzie Stein LPN HALF BACKER - HOME VISIT 03/10/2025 11:00 AM CDT Home Care Visit [facility] [address] [place] [phone] Carrillo Horowitz, PT PT - REASSESSMENT 03/06/2025 2:30 PM CDT Home Care Visit [facility] [address] [place] [phone] Rehan, Iliana, RN SN - HOME VISIT 03/05/2025 10:15 AM CDT Home Care Visit [facility] [address] [place] [address] Herrera Sewell, PT PT - HOME VISIT 03/03/2025 4:00 PM CDT Home Care Visit [facility] [address] [place] [address] Luh Haro SUPERVISING DEPUTY - HOME VISIT 03/03/2025 9:00 AM CDT Home Care Visit [facility] [address] [place] [phone] Lizzie Stein, HALF BACKER HALF BACKER - HOME VISIT 02/28/2025 3:20 PM CDT Office Visit [address] [address] Connor Modi MD Hospital F/U ([facility], 02/16/2025 - 02/21/2025, 02/26/2025, heart failure ) 02/28/2025 9:00 AM CDT Home Care Visit [facility] [address] [place] [address] Herrera Sewell, PT PT - INITIAL ASSESSMENT 02/28/2025 Travel 02/27/2025 1:30 PM CDT Home Care Visit [facility] [address] [place] [phone] Luh Haro SUPERVISING DEPUTY - HOME VISIT 02/26/2025 2:08 PM CDT Anesthesia Event [facility] [address] [place] [address] Gus Moreira MD Elvester, Danica K, MODELING INSTRUCTOR 02/26/2025 11:59 AM CDT - 02/26/2025 3:25 PM CDT Hospital Encounter [facility] [address] [place] [address] Chaz Olivo MD Elvester, Danica K, MODELING INSTRUCTOR Ru Lopes, Marco Ngo MD Discharge Disposition: Home Self Care 02/26/2025 9:00 AM CDT Home Care Visit [facility] [address] [place] [phone] Farzana Laguerre, RN SN - OASIS START OF CARE 02/26/2025 Telephone [facility] [address] [place] [phone] Farzana Laguerre, braid cutter (HOME CARE ORDERS) 02/26/2025 Travel 02/26/2025 Plan of Care Documentation [facility] [address] [place] [phone] 02/25/2025 Nurse Triage [facility] [address] [place] [address] Marielena Perez, LIZZ Diarrhea; Low Blood Pressure; Dehydration 02/24/2025 [facility] [address] [place] [address] Jani Coe, LIZZ Research ([place] [employer] TTRV Research Trial) 02/24/2025 Telephone [facility] [address] [facility] [address] [place] [phone] Leigh Oviedo, LIZZ Device Check 02/24/2025 Telephone [facility] [address] [place] [address] Connor Modi MD Lab 02/24/2025 Patient Outreach [facility] [address] [place] [address] Alta Davis, RN Primary RN Care Management; Hospital F/U (Lace=75) 02/21/2025 4:00 PM CDT Office Visit [facility] [address] [facility] [address] [place] [phone] Chaz Olivo MD CV Electrophysiology Est (FOLLOW UP /Device Check prior to appt /DX: NSVT /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 /) 02/19/2025 Orders Only [facility] [address] [place] [address] Preston Wheeler MD, PhD <No scans attached> 02/19/2025 Orders Only [facility] [address] [place] [phone] Preston Wheeler MD, PhD <No scans attached> 02/16/2025 5:27 PM CDT - 02/21/2025 3:40 PM CDT Hospital Encounter [facility] [address] [place] [address] [facility], MD Rehan Lozano, MD Mehrdad Branch, Huey Interiano MD 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 [address] [place] [address] 02/16/2025 Telephone [facility] [address] [place] [address] Cathi Hampton, [facility] 02/15/2025 Orders Only [facility] Scanner 1 scan: (1-Ord) [facility], ABDOMEN LIMITED, 02/15/2025 02/15/2025 Orders Only [facility] Scanner 1 scan: (1-Ord) [facility], CT ABDOMEN PELVIS W CON, 02/15/2025 02/15/2025 Orders Only [facility] Scanner 1 scan: (1-Ord) [facility], CHEST 2V, 02/15/2025 02/15/2025 Orders Only [facility] Scanner 1 scan: (1-Ord) [facility], XR ABDOMEN MIN 2 V, 02/15/2025 02/12/2025 9:00 AM CDT Nurse/Clinic Staff Only [facility] [address] [place] [address] Removal (Lopez cath) 02/12/2025 Nurse Triage [facility] [address] [place] [address] Connor Modi MD Questions 02/12/2025 Travel from Last 3 Months Immunizations Immunization Administration [...] Free (age >= 7 Years) 6 Tdap 07/30/2024,07/07/2014 Zoster (Shingrix-RZV, recombinant) 04/14/2018, Zoster (Zostavax-ZVL, live) [...] 06/05/1988 Smokeless Tobacco: Never Tobacco Cessation:Counseling Given: Yes Alcohol Use Standard Drinks/Week Comments No 0 (1 standard drink = 0.6 oz pur e alcohol) not for 35 yrs PHQ-2 Answer Date Recorded PHQ-2 TOTAL SCORE 4 07/18/2024 Social Connections Answer Date Recorded Do you often feel lonely or isolated from those around you? 0 02/16/2025 Alcohol Use Answer Date Recorded How often do you have a drink containing alcohol ? 0 04/29/2025 How many drinks containing a lcohol do you have on a typical day when you are drinking? 0 04/29/2025 How often do you have five or more drinks on one occasion? 0 04/29/2025 Financial Resource Strain Answer Date R ecorded Difficulty of Paying Living Expenses 3 02/16/2025 Difficulty of Paying Living Expenses Not on file 02/16/2025 Food Insecurity Answer Date Recorded Do you worry your food will run out before you are able to buy more? 1 02/16/2025 Transportation Needs Answer Date Record ed Does lack of transportation keep you from medica l appointments? 1 02/16/2025 Does lack of transportation keep you from work, meetings or getting things that you need? 1 02/16/2025 Housing Stability Answer Date Recorded What is your housing situation today? 1 02/16/2025 Interpersonal Safety Answer Date Record ed Are you being hit, kicked, p ushed or yelled at (see row info)? No 02/26/2025 Interpersonal Safety Abuse 12 - 18 Not on file 02/26/2025 Interpersonal Safety Ambulatory Vulnerability No t on file 02/26/2025 Utilities Answer Date Recorded Do you have trouble paying f or utilities (for example, heat, electricity, water, phone)? 1 02/16/2025 Sex and Gender Information Value Date Recorded Sex Assigned at Not on file Legal Sex Male 5:24 AM ELEMENTARY EDUCATION TEACHER Gender Identity Not on file Sexual Orientation Not on file Occupation Industry Job Start Date Job End Date retired, worked at [employer] Not on file Not on f ile Not on file Last Filed Vital Signs Vital Sign Reading Time Taken Comments Blood Pressure 160/75 04/29/2025 9:03 AM ELEMENTARY EDUCATION TEACHER Pulse 83 04/29/2025 9:03 AM ELEMENTARY EDUCATION TEACHER Temperature 36.2 C (97.2 F) 03/27/2025 9:56 AM CDT Respiratory Rate 16 03/27/2025 9:56 AM CDT Oxygen Saturation 99% 04/29/2025 9:03 AM ELEMENTARY EDUCATION TEACHER Inhaled Oxygen Concentration - - Weight 68 kg (150 lb) 04/29/2025 9:03 AM ELEMENTARY EDUCATION TEACHER Height 167.6 cm (5' 5.98) 04/01/2025 2:43 PM CD T Body Mass Index 24.22 04/01/2025 2:43 PM CDT Plan of Treatment Upcoming Encounters Date Type Department Care Team (Late st Contact Info) Description 05/20/2025 8:00 AM ELEMENTARY EDUCATION TEACHER Ancillary Procedure [facility] [address] [place] [phone] 05/26/2025 1:00 PM ELEMENTARY EDUCATION TEACHER Office Visit [facility] [place] [address] [facility] [address] [place] [address] Preston Wheeler MD, PhD [address] [facility] [address] [place] [address] 06/20/2025 1:30 PM ELEMENTARY EDUCATION TEACHER Orders Only [facility] [place] [address] [place] [phone] 06/20/2025 2:30 PM ELEMENTARY EDUCATION TEACHER Office Visit [facility] [place] [address] [place] [phone] Felipe Kaur MD [address] [place] [address] 06/26/2025 Cardiac Device Check [facility] [phone] 07/17/2025 10:15 AM ELEMENTARY EDUCATION TEACHER Orders Only [facility] [address] [place] [address] Lab, [place] 07/21/2025 10:05 AM ELEMENTARY EDUCATION TEACHER Office Visit [facility] [address] [place] [address] Connor Modi MD [address] [place] [address] Health Maintenance Due Date Last Done Comments COVID-19 vaccine series (2024- season) 2025 06/14/2024, 04/27/2022, 12/10/2021, Additional history exists Influenza Vaccine (#1) 2025 , 04/28/2023, 03/10/2022, Additional history exists Medicare Wellness for age 65+ 07/19/2025 07/18/2024, 04/28/2023, 08/24/2021, Additional history exists Depression screening for age 12+ 07/22/2025 07/22/2024, 07/18/2024, 04/28/2023, Additional history exists BMI (ht and wt on same day) for age 18+ 04/01/2026 04/01/2025, 02/21/2025, 07/18/2024, Additional history exists Tetanus booster 07/30/2034 07/30/2024, 07/2014, 04/26/2006, Additional history exists Zoster (shingles) series for [...] Dowling MD Medical Devices Implanted Type Area Information Technology Data Analyst Device Identifier Shelf Expiration Date Model / Serial / Lot Patch Vasc 0.8x8cm Biological Peripatch - [id number] Implanted:Qty: 1 on 11/23/2011 by Annemarie King MD at [facility] Left: Femoral Artery [employer] 03/24/2014 0.8P8# / / [id number] Heydi-Guard [id number] - [id number] Implanted:Qty: 1 on 05/24/2012 by Annemarie King MD at [facility] Right: Femoral Artery [employer] 11/25/2015 [id number]# / / [id number] Patch Vasc 0.8x8cm Xenosure Biological Pericardial - [id number] Implanted:Qty: 1 on 08/12/2016 by Zen Morales MD at [facility] Right: Carotid Artery [employer] 03/02/2022 0.8P8# / / [id number] Procedures Procedure Name Priority Date/Time Associated Diagnosis Comments BASIC METABOLIC PANEL Routine 05/09/2025 11:28 AM ELEMENTARY EDUCATION TEACHER Acute on chronic HFrEF (heart failure with reduced ejection fraction) (HC) PRO-BNP Routine 05/09/2025 11:28 AM ELEMENTARY EDUCATION TEACHER Acute on chronic HFrEF (heart failure with reduced ejection fraction) (HC) BASIC METABOLIC PANEL Routine 04/29/2025 10:07 AM ELEMENTARY EDUCATION TEACHER Tricuspid valve insufficiency, unspecified etiology BASIC METABOLIC PANEL Routine 03/13/2025 4:08 PM CDT Stage 3b chronic kidney disease (HC) BASIC METABOLIC PANEL Routine 02/28/2025 4:51 PM CDT HFrEF (heart failure with reduced ejection fraction) (HC) EKG 12 LEAD Preop 02/26/2025 2:18 PM CDT EP CARDIOVERSION Routine 02/26/2025 2:15 PM CDT ISTAT CHEM 8 Timed 02/26/2025 1:47 PM CDT EKG 12 LEAD Routine 02/26/2025 12:58 PM CDT NSVT (nonsustained ventricular tachycardia) (HC) SCAN-CARDIAC STRIP 02/26/2025 12 :00 AM CDT BASIC METABOLIC PANEL Early AM 02/21/2025 7:50 AM CDT PLATELET COUNT Timed 02/21/2025 7:50 AM CDT SCAN-CARDIAC STRIP 02/21/2025 4: 39 AM CDT SCAN-CARDIAC STRIP 02/21/2025 4: 39 AM CDT MAGNESIUM Timed 02/20/2025 9:13 PM CDT POTASSIUM Timed 02/20/2025 9:13 PM CDT SCAN-CARDIAC STRIP 02/20/2025 8: 03 PM CDT POTASSIUM Timed 02/20/2025 2:56 PM CDT SCAN-CARDIAC STRIP 02/20/2025 7: 34 AM CDT MAGNESIUM Early AM 02/20/2025 7:12 AM CDT CREATININE Early AM 02/20/2025 7:12 AM CDT POTASSIUM Early AM 02/20/2025 7:12 AM CDT SODIUM Early AM 02/20/2025 7:12 AM CDT HEMOGLOBIN Early AM 02/20/2025 7:12 AM CDT PLATELET COUNT Early AM 02/20/2025 7:12 AM CDT SCAN-CARDIAC STRIP 02/19/2025 11 :38 PM CDT POTASSIUM Timed 02/19/2025 3:25 PM CDT ECHO TERRENCE WO CONTRAST W COLOR W COMPLETE DOPPLER Routine 02/19/2025 1:35 PM CDT SCAN-CARDIAC STRIP 02/19/2025 9: 28 AM CDT US ABDOMEN LIMITED ASCITES Routine 02/19/2025 9:10 AM CDT APTT Timed 02/19/2025 8:47 AM CDT MAGNESIUM Early AM 02/19/2025 8:47 AM CDT HEMOGLOBIN Early AM 02/19/2025 8:47 AM CDT PLATELET COUNT Early AM 02/19/2025 8:47 AM CDT CREATININE Early AM 02/19/2025 8:47 AM CDT POTASSIUM Early AM 02/19/2025 8:47 AM CDT SODIUM Early AM 02/19/2025 8:47 AM CDT SCAN-CARDIAC STRIP 02/19/2025 4: 59 AM CDT SCAN-CARDIAC STRIP 02/18/2025 11 :12 PM CDT HCHG ACTIVATED CLOTTING TM CV Timed 02/18/2025 5:55 PM CDT HEMOGLOBIN SEGUNDO 02/18/2025 5:16 PM CDT PLATELET COUNT SEGUNDO 02/18/2025 5:16 PM CDT APTT SEGUNDO 02/18/2025 5:16 PM CDT PROTIME-INR SEGUNDO 02/18/2025 5:16 PM CDT SCAN-CARDIAC STRIP 02/18/2025 4: 46 PM CDT SCAN-CARDIAC STRIP 02/18/2025 4: 46 PM CDT EKG 12 LEAD SEGUNDO 02/18/2025 4:09 PM CDT HCHG ACTIVATED CLOTTING TM CV Timed 02/18/2025 3:56 PM CDT HCHG ACTIVATED CLOTTING TM CV Timed 02/18/2025 12:29 PM CDT HCHG ACTIVATED CLOTTING TM CV Timed 02/18/2025 12:00 PM CDT HCHG ACTIVATED CLOTTING TM CV Timed 02/18/2025 11:15 AM CDT COMPREHENSIVE BLOOD GAS MIXED VENOUS Timed 02/18/2025 10:26 AM CDT COMPREHENSIVE BLOOD GAS MIXED VENOUS Timed 02/18/2025 10:22 AM CDT CVL CORONARY ANGIOGRAM POSS PCI Routine 02/18/2025 9:44 AM CDT Cardiovascular symptoms MAGNESIUM Timed 02/18/2025 7:55 AM CDT HEMOGLOBIN Early AM 02/18/2025 7:55 AM CDT BASIC METABOLIC PANEL Early AM 02/18/2025 7:55 AM CDT PLATELET COUNT Timed 02/18/2025 7:55 AM CDT APTT Early AM 02/18/2025 7:54 AM CDT ANTI HBC Early AM 02/18/2025 7:54 AM CDT ANTI HBS QUANT AHS Early AM 02/18/2025 7: 54 AM CDT ANTI HCV Early AM 02/18/2025 7:54 AM CDT SCAN-CARDIAC STRIP 02/18/2025 2: 45 AM CDT MAGNESIUM Timed 02/17/2025 11:15 PM CDT POTASSIUM Timed 02/17/2025 11:15 PM CDT APTT Timed 02/17/2025 11:15 PM CDT SCAN-CARDIAC STRIP 02/17/2025 3: 43 PM CDT HEMOGLOBIN SEGUNDO 02/17/2025 2:42 PM CDT PLATELET COUNT SEGUNDO 02/17/2025 2:42 PM CDT APTT SEGUNDO 02/17/2025 2:42 PM CDT PROTIME-INR SEGUNDO 02/17/2025 2:42 PM CDT SCAN CORRESP-IMAGING 02/17/2025 1:46 PM CDT SCAN CORRESP-EKG RESULTS 02/17/2025 1:44 PM CDT SCAN CORRESP-IMAGING 02/17/2025 1:44 PM CDT SCAN CORRESP-LABORATORY RESULTS 02/17/2025 1:42 PM CDT SCAN-CARDIAC STRIP 02/17/2025 9: 05 AM CDT HBSAG (HBS) SEGUNDO 02/17/2025 8:56 AM CDT BASIC METABOLIC PANEL Early AM 02/17/2025 8:[address] CARDIAC MORPHOLOGY W CV DUAL READ Routine 02/17/2025 7:[address] CARDIAC MORPHOLOGY W RAD DUAL READ Routine 02/17/2025 7:48 AM CDT CTA CHEST ABD PELVIS TAVR - CV DUAL READ Routine 02/17/2025 7:48 AM CDT CTA CHEST ABD PELVIS TAVR - RAD DUAL READ Routine 02/17/2025 7:48 AM CDT PROTIME-INR Today 02/16/2025 8:28 PM CDT MAGNESIUM Today 02/16/2025 8:28 PM CDT HEPATIC FUNCTION PANEL Today 8:28 PM CDT BASIC METABOLIC PANEL Timed 02/16/2025 8:28 PM CDT CBC W PLT NO DIFF Today 02/16/2025 8:2 8 PM CDT SCAN-CARDIAC STRIP 02/16/2025 6: 39 PM CDT ECHO TTE COMPLETE W CONTRAST Routine 02/16/2025 10:54 AM CDT HFrEF (heart failure with reduced ejection fraction) (HC) SCAN-ULTRASOUND REPORT 12:00 AM CDT SCAN-CT INTERPRETATION 12:00 AM CDT SCAN-RADIOLOGY REPORT 02/15/2025 12:00 AM CDT SCAN-RADIOLOGY REPORT 02/15/2025 12:00 AM CDT from Last 3 Months Results * (ABNORMAL) PRO-BNP (05/09/2025 11:28 AM ELEMENTARY EDUCATION TEACHER) NT PROBNP 4761(H) <450 pg/mL 05/10/2025 11:30 AM ELEMENTARY EDUCATION TEACHER [facility] Blood BLOOD SPECIMEN / Unknown [facility] / Unknown 05/09/2025 11:28 AM ELEMENTARY EDUCATION TEACHER 05/09/2025 11:28 AM ELEMENTARY EDUCATION TEACHER [facility] Francisco MD SEND OUTS Final Result [facility] [address] [place] [address], * (ABNORMAL) BASIC METABOLIC PANEL (05/09/2025 11:28 AM ELEMENTARY EDUCATION TEACHER) Only the most recent of8 resultswithin the time period is included. SODIUM 134(L) 135 - 146 mmol/L 05/10/2025 5:36 AM ELEMENTARY EDUCATION TEACHER [facility] POTASSIUM 3.9 3.5 - 5.3 mmol/L 05/10/2025 5:36 AM ELEMENTARY EDUCATION TEACHER [facility] CARBON DIOXIDE 30 20 - 32 mmol/L 05/10/2025 5:36 AM ELEMENTARY EDUCATION TEACHER [facility] GLUCOSE 102(H) 65 - 99 mg/dL 05/10/2025 5:36 AM ELEMENTARY EDUCATION TEACHER [facility] Comment: Fasting reference interval For someone without known diabetes, a glucose value between 100 and 125 mg/dL is consistent with prediabetes and should be confirmed with a follow-up test. CALCIUM 9.1 8.6 - 10.3 mg/dL 05/10/2025 5:36 AM ELEMENTARY EDUCATION TEACHER [facility] CREATININE 1.50(H) 0.70 - 1.22 mg/dL 05/10/2025 5:36 AM ELEMENTARY EDUCATION TEACHER [facility] BUN/CREATININE RATIO 22 6 - 22 (calc) 05/10/2025 5:36 AM ELEMENTARY EDUCATION TEACHER [facility] EGFR 46(L) > OR = 60 mL/min/1. 73m2 05/10/2025 5:36 AM ELEMENTARY EDUCATION TEACHER [facility] UREA NITROGEN (BUN) 33(H) 7 - 25 mg/dL 05/10/2025 5:36 AM ELEMENTARY EDUCATION TEACHER [facility] ELECTROLYTE BALANCE 7 7 - 17 mmol/L (calc) 05/10/2025 5:36 AM ELEMENTARY EDUCATION TEACHER [facility] CHLORIDE 97(L) 98 - 110 mmol/L 05/10/2025 5:36 AM ELEMENTARY EDUCATION TEACHER [facility] Blood BLOOD SPECIMEN / Unknown [facility] / Unknown 05/09/2025 11:28 AM ELEMENTARY EDUCATION TEACHER 05/09/2025 11:28 AM ELEMENTARY EDUCATION TEACHER Brittney Francisco MD CHEMISTRY Final Result [facility] [address] [place] [address], [place] [phone] * EKG - 12 Lead (02/26/2025 2:18 PM CDT) Only the most recent of2 resultswithin the time period is included. Interpretation AV dual-paced rhythm with occasional ventricular-pa sony complexes and with frequent Premature ventricular complexes Abnormal ECG When compared with ECG of 26-Feb-2025 12:58, Vent. rate has decreased by 11 bpm [facility] Ventricular Rate 75 BPM [facility] NOW Atrial Rate 77 BPM [facility] NOW P-R Interval 166 ms [facility] NOW QRS Duration 148 ms [facility] NOW QT 462 ms [facility] NOW QTc 515 ms [facility] NOW P [place] 105 degrees BEYOND NOW R [place] 116 degrees BEYOND NOW T [place] -64 degrees [facility] NOW 02/26/2025 2:18 PM CDT 02/27/2025 10:20 PM CDT Narrative [facility] - 02/27/2025 10:21 PM CDT Test Indication: post-op [address] EKG ORD Final Re sult Performing Organization Address City/State/[facility] Co de Phone Number [facility] [place], [place] * EP CARDIOVERSION (02/26/2025 2:15 PM CDT) Anatomical Region Laterality Modality X-Ray Angiograph y Narrative 02/26/2025 2:15 PM CDT Marielena Power PA 02/26/2025 2:[address] [facility] Cardiac Electrophysiology Procedure Note DOS: 02/26/2025 Brief History: Anish Coughlin is a pleasant 84 y.o. year old with history of persistent atrial fibrillation who now presents to OP NPO since midnight for direct current cardioversion. Eliquis 5 mg BID with no missed doses since TERRENCE on 02/19/25. Procedure Description: Time out was called. Brief general anesthesia by anesthesia service. Cardioversion patches were placed in an anterior/posterior position. One 200 joules synchronized shock delivered with successful cardioversion to atrial pacing, BiV pacing. Complications: No acute complications. Plan: Anish Coughlin is now recovering from sedation and would anticipate discharge home later today. Dr. Olivo was readily available to provide assistance and direction throughout the time services were performed Marielena Power PA-C [facility] Cardiac Electrophysiology us Chaz Olivo MD CV IMAGING Final Result * ISTAT CHEM 8 (02/26/2025 1:47 PM CDT) [facility] SODIUM, POCT 02/27/2025 8:20 AM CDT [facility] Comment:Unable to determine. POTASSIUM, POCT 3.6 3.5 - 5.0 mmol/L 02/27/2025 8:20 AM CDT [facility] CHLORIDE, POCT 02/27/2025 8:20 AM CDT [facility] Comment:Unable to determine. CO2,TOTAL, POCT 02/27/2025 8:20 AM CDT [facility] Comment:Unable to determine. ANION GAP, POCT 02/27/2025 8:20 AM T [facility] Comment:Unable to calculate. GLUCOSE, POCT 02/27/2025 8:20 AM CDT [facility] Comment:Unable to determine. IONIZED CALCIUM, POCT 02/27/2025 8:20 AM T [facility] Comment:Unable to determine. BUN, POCT 02/27/2025 8:20 AM CDT [facility] Comment:Unable to determine. CREATININE, POCT 02/27/2025 8:20 AM CDT [facility] Comment:Unable to determine. BUN/CREAT RATIO, POCT 02/27/2025 8:20 AM T [facility] Comment:Unable to calculate. eGFR 02/27/2025 8:20 AM T [facility] Comment:Unable to calculate. HEMATOCRIT, POCT 02/27/2025 8:20 AM CDT [facility] Comment:Unable to determine. HEMOGLOBIN, POCT 02/27/2025 8:20 AM CDT [facility] Comment:Unable to determine. Blood BLOOD SPECIMEN / Unknown 02/26/2025 1:47 PM CDT 02/27/2025 8:20 AM CDT us Chaz Olivo MD CHEMISTRY Final Result Performing Organization Address [facility] Co de Phone Number [facility] [address] [place] [address], [place] * SCAN-CARDIAC STRIP (02/26/2025 12:00 AM CDT) Narrative 02/26/2025 12:00 AM CDT Ordered by an unspecified provider. us Other Clinical Staff OTHER Final Resul t * PLATELET COUNT (02/21/2025 7:50 AM CDT) Only the most recent of6 resultswithin the time period is included. PLATELET COUNT 142 140 - 440 thou/cu mm 02/21/2025 8:25 AM CDT [facility] MPV 9.6 6.5 - 11.0 fL 02/21/2025 8:25 AM CDT [facility] Blood BLOOD SPECIMEN / Unknown Venipuncture / Unknown 02/21/2025 7:50 AM CDT 02/21/2025 8:15 AM CDT us Quentin Shah MD HEMATOLOGY Final Resu lt Performing Organization Address [facility] Co de Phone Number [facility] [address] [address], [place] * SCAN-CARDIAC STRIP (02/21/2025 4:39 AM CDT) us Scanner OTHER Final Result * SCAN-CARDIAC STRIP (02/21/2025 4:39 AM CDT) us Scanner OTHER Final Result * POTASSIUM (02/20/2025 9:13 PM CDT) Only the most recent of6 resultswithin the time period is included. POTASSIUM 4.2 3.5 - 5.1 mmol/L 02/20/2025 10:05 PM CDT [facility] Blood BLOOD SPECIMEN / Unknown Venipuncture / Unknown 02/20/2025 9:13 PM CDT 02/20/2025 9:19 PM CDT us Charanjit Van MD CHEMISTRY Final Re sult Performing Organization Address [facility] Co de Phone Number [facility] [address] [place] [address], [place] * MAGNESIUM (02/20/2025 9:13 PM CDT) Only the most recent of6 resultswithin the time period is included. MAGNESIUM 2.2 1.6 - 2.4 mg/dL 02/20/2025 10:05 PM CDT [facility] Blood BLOOD SPECIMEN / Unknown Venipuncture / Unknown 02/20/2025 9:13 PM CDT 02/20/2025 9:19 PM CDT us Chelsea Ely RN CHEMISTRY Final Resul t Performing Organization Address [facility] Co de Phone Number [facility] [address] [place] [address], [place] * SCAN-CARDIAC STRIP (02/20/2025 8:03 PM CDT) us Scanner OTHER Final Result * SCAN-CARDIAC STRIP (02/20/2025 7:34 AM CDT) us Scanner OTHER Final Result * (ABNORMAL) HEMOGLOBIN (02/20/2025 7:12 AM CDT) Only the most recent of5 resultswithin the time period is included. HEMOGLOBIN 11.4(L) 13.5 - 17.5 g/dL 02/20/2025 7:41 AM CDT [facility] MCV 87 80 - 100 fL 02/20/2025 7:41 AM CDT [facility] Blood BLOOD SPECIMEN / Unknown Butterfly / Unknown 02/20/2025 7:12 AM CDT 02/20/2025 7:34 AM CDT Narrative [facility] - 02/20/2025 7:41 AM CDT Every morning while on IV heparin. Necessary every morning while on IV heparin. us Natalya Salgado NP HEMATOLOGY Final Result Performing Organization Address [facility]/ZIP Co de Phone Number [facility] [address] [place] [address], [place] * SODIUM (02/20/2025 7:12 AM CDT) Only the most recent of2 resultswithin the time period is included. SODIUM 136 136 - 145 mmol/L 02/20/2025 8:09 AM CDT [facility] Blood BLOOD SPECIMEN / Unknown Venipuncture / Unknown 02/20/2025 7:12 AM CDT 02/20/2025 7:34 AM CDT Charanjit Van MD CHEMISTRY Final Re sult Performing Organization Address [facility] Co de Phone Number [facility] [address] [place] [address], [place] * (ABNORMAL) CREATININE (02/20/2025 7:12 AM CDT) Only the most recent of2 resultswithin the time period is included. eGFR 54(L) >90 mL/min/1.7 3m2 02/20/2025 8:09 AM CDT [facility] Comment:As of 2021, eG FR is calculated by the CKD-EPI creatinine equation without race adjustment. eGFR can be influenced by muscle mass, exercise, and diet. The reported eGFR is an estimation only and is only applicable if the renal function is stable. CREATININE 1.31(H) 0.70 - 1.20 mg/dL 02/20/2025 8:09 AM CDT [facility] Blood BLOOD SPECIMEN / Unknown Venipuncture / Unknown 02/20/2025 7:12 AM CDT 02/20/2025 7:34 AM CDT Charanjit Van MD CHEMISTRY Final Re sult [facility] [address] [place] [address], [place] * SCAN-CARDIAC STRIP (02/19/2025 11:38 PM CDT) us Scanner OTHER Final Result * ECHO TERRENCE WO CONTRAST W COLOR W COMPLETE DOPPLER (02/19/2025 1:35 PM CDT) AORTIC VALVE MEAN PG 11 mmHg EJECTION FRACTION 35% Anatomical Region Laterality Modality Ultrasound 02/19/2025 12:0 0 PM CDT Narrative 02/19/2025 2:47 PM CDT TRANSESOPHAGEAL ECHOCARDIOGRAM ANISH COUGHLIN : 1940 84 years Study Date: 02/19/2025 12:00:31 PM Gender: M BP: 119/55 mmHg Height: 163.00 cm BSA: 1.74 m Weight: 69.00 kg Tech: [facility] Referring MD: NATALYA PEREZ SALGADO Site: [facility] Reading Location: [facility] Patient Location: Inpatient. Procedure: TERRENCE, 3D Imaging, Color Doppler and Spectral Doppler. Indication for study: Valve Disorders Cardiac Rhythm: Regular.Study quality: Good. Final Impressions: 1. 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 ERO by PISA method was 0.55-0.70 cm2. Averaged 3D VC area was 0.79 cm2. , central, and SP gaps [7 mm or less]. The tricuspid valve is quadricuspid with two posterior leaflets. There is systolic reversal in the hepatic veins. 2. LFLG . V-max 2.2 m/s, MG 11 mmHg, valve area 0.99 cm2. Valve area by 3D planimetry was 1.09 cm2. 3. Mild MR. 4. LVEF 35%. Normal LV size. 5. Moderately dilated RV with moderately reduced global function. 6. Severe JESSICA. 7. No RENE thrombus. Procedure comments: Indications, goals, risks and alternatives of the procedure were discussed with the patient and informed consent was obtained. The patient received conscious sedation of intravenous Versed and intravenous Fentanyl. See procedural record for anesthesia details. Prior to performance of procedure, time out was called to accurately identify the patient and procedure. The Echo probe was passed without difficulty. TERRENCE, 3D Imaging, Color Doppler and Spectral Doppler was performed. The patient developed no apparent complications during the procedure. Estimated Blood Loss: 0 ml Chamber Sizes and Function Normal left ventricular size, normal global systolic function with an estimated EF of 35%. There is moderate global left ventricular hypokinesis. No resting regional wall motion abnormality visualized. Left atrial size is severely enlarged. The left atrial appendage is well visualized and there is no evidence of thrombus present. Decreased left atrial appendage flow velocities. Right ventricular cavity size is moderately enlarged, global systolic RV function is mildly reduced. Pacing wire/catheter visualized in the right ventricle. The right atrium is severely enlarged. The pulmonary artery is not well visualized. The sinus of Valsalva is normal sized. The ascending aorta is normal sized. Aortic arch is not well visualized. Descending aorta is normal sized with mild plaque visualized. Valves, RV Pressures and Diastolic Function The aortic valve is trileaflet and sclerotic, no stenosis and trivial regurgitation. The mitral valve is normal in structure, mild mitral regurgitation. The tricuspid valve is normal in structure, torrential tricuspid regurgitation. The pulmonic valve is not well visualized. Trace pulmonary regurgitation. Masses, Effusion, Shunts There is no pericardial effusion. Atrial septum is intact. Agitated saline injection not done. MEASUREMENTS AND CALCULATIONS 2-D Measurements and LV Function: Ao Sinus ULN 4.0 cm * LVOT diameter 2.0 cm Asc Ao ULN 4.2 cm * HR 60 bpm * Input age outside of range, reported values correspond to Age = 81 Aortic Valve: Vmax 2.2 m/s [place] (V) 0.97 cm VTI 0.52 m [place] (I) 0.99 cm LVOT V max 0.7 m/s Max PG 20 mmHg LVOT VTI 0.16 m Mean PG 11 mmHg SV 51 ml Dim Index 0.31 SV index 29 ml/m CO 3.1 l/min CI 1.8 l/min/m Mitral Valve: . This study was interpreted by an [facility] accredited facility. Final Procedure Note Gopi Man MD - 02/19/2025 TRANSESOPHAGEAL ECHOCARDIOGRAM ANISH COUGHLIN : 1940 84 years Study Date: 02/19/2025 12:00:31 PM Gender: M BP: 119/55 mmHg Height: 163.00 cm BSA: 1.74 m Weight: 69.00 kg Tech: [facility] Referring MD: NATALYA MERIDA Site: [facility] Reading Location: [facility] Patient Location: Inpatient. Procedure: TERRENCE, 3D Imaging, Color Doppler and Spectral Doppler. Indication for study: Valve Disorders Cardiac Rhythm: Regular.Study quality: Good. Final Impressions: 1. 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 Severe TRpresent. ERO by PISA method was 0.55-0.70 cm2. Averaged 3D VC area was0.79 cm2. , central, and SP gaps [7 mm or less]. The tricuspid valve isquadricuspid with two posterior leaflets. There is systolic reversal inthe hepatic veins. 2. LFLG . V-max 2.2 m/s, MG 11 mmHg, valve area 0.99 cm2. Valve area by3D planimetry was 1.09 cm2. 3. Mild MR. 4. LVEF 35%. Normal LV size. 5. Moderately dilated RV with moderately reduced global function. 6. Severe JESSICA. 7. No RENE thrombus. Procedure comments: Indications, goals, risks and alternatives of theprocedure were discussed with the patient and informed consent wasobtained. The patient received conscious sedation of intravenous Versedand intravenous Fentanyl. See procedural record for anesthesia details.Prior to performance of procedure, time out was called to accuratelyidentify the patient and procedure. The Echo probe was passed withoutdifficulty. TERRENCE, 3D Imaging, Color Doppler and Spectral Doppler wasperformed. The patient developed no apparent complications during theprocedure. Estimated Blood Loss: 0 ml Chamber Sizes and Function Normal left ventricular size, normal global systolic function with anestimated EF of 35%. There is moderate global left ventricularhypokinesis. No resting regional wall motion abnormality visualized. Leftatrial size is severely enlarged. The left atrial appendage is wellvisualized and there is no evidence of thrombus present. Decreased leftatrial appendage flow velocities. Right ventricular cavity size ismoderately enlarged, global systolic RV function is mildly reduced. Pacingwire/catheter visualized in the right ventricle. The right atrium isseverely enlarged. The pulmonary artery is not well visualized. The sinusof Valsalva is normal sized. The ascending aorta is normal sized. Aorticarch is not well visualized. Descending aorta is normal sized with mildplaque visualized. Valves, RV Pressures and Diastolic Function The aortic valve is trileaflet and sclerotic, no stenosis and trivialregurgitation. The mitral valve is normal in structure, mild mitralregurgitation. The tricuspid valve is normal in structure, torrentialtricuspid regurgitation. The pulmonic valve is not well visualized. Tracepulmonary regurgitation. Masses, Effusion, Shunts There is no pericardial effusion. Atrial septum is intact. Agitated salineinjection not done. MEASUREMENTS AND CALCULATIONS 2-D Measurements and LV Function: Ao Sinus ULN 4.0 cm * LVOT diameter2.0 cm Asc Ao ULN 4.2 cm * HR60 bpm * Input age outside of range, reported values correspond to Age = 81 Aortic Valve: Vmax 2.2 m/s [place] (V) 0.97 cm VTI 0.52 m [place] (I) 0.99 cm LVOT V max 0.7 m/s Max PG 20 mmHg LVOT VTI 0.16 m Mean PG 11 mmHg SV 51 ml Dim Index 0.31 SV index 29 ml/m CO 3.1 l/min CI 1.8 l/min/m Mitral Valve: . This study was interpreted by an [facility] accredited facility. Final Natalya Salgado NP ECHO ORD Final Result * SCAN-CARDIAC STRIP (02/19/2025 9:28 AM CDT) us Scanner OTHER Final Result * US ABDOMEN LIMITED ASCITES (02/19/2025 9:10 AM CDT) Anatomical Region Laterality Modality Abdomen Ultrasound Impressions 02/19/2025 10:07 AM CDT Insufficient volume of ascites for therapeutic and diagnostic paracentesis. Case discussed with the patient who states understanding Ana Badillo PA-C [facility] Interventional Radiology Narrative 02/19/2025 10:07 AM CDT For Patients: As a result of the Cures Act, medical imaging exams and procedure reports are released immediately into your electronic medical record. You may view this report before your referring provider. If you have questions, please contact your health care provider. INDICATION: Patient presents for paracentesis. Abdominal ascites assessment. TECHNIQUE: Limited four-quadrant survey of the abdomen was performed. Grayscale imaging. FINDINGS: Ascites: Right upper quadrant 0 fluid Right lower quadrant 0 fluid Left lower quadrant 0 fluid Left upper quadrant [address] Fin al Result * (ABNORMAL) APTT (02/19/2025 8:47 AM CDT) Only the most recent of5 resultswithin the time period is included. APTT 55(H) 25 - 36 sec 02/19/2025 9:58 AM CDT [facility] Blood BLOOD SPECIMEN / Unknown Venipuncture / Unknown 02/19/2025 8:47 AM CDT 02/19/2025 9:33 AM CDT Narrative [facility] [email or web address] [facility] - 02/19/2025 9:58 AM CDT Therapeutic Range: 59-89 seconds us Charanjit Van MD HEMATOLOGY Final Re sult [facility] [address] [place] [address], [place] * SCAN-CARDIAC STRIP (02/19/2025 4:59 AM CDT) us Scanner OTHER Final Result * SCAN-CARDIAC STRIP (02/18/2025 11:12 PM CDT) us Scanner OTHER Final Result * (ABNORMAL) ACTIVATED CLOTTING TIME [id number] ACT (02/18/2025 5:55 PM CDT) Only the most recent of5 resultswithin the time period is included. ACTIVATED CLOTTING TIME, POCT 166(H) 74 - 125 sec 03/03/2025 11:20 PM CDT [facility] Blood BLOOD SPECIMEN / Unknown 02/18/2025 5:55 PM CDT 03/03/2025 11:20 PM CDT us Charanjit Vna MD HEMATOLOGY Final Re sult [facility] [address] [place] [id number], * (ABNORMAL) PROTIME-INR (02/18/2025 5:16 PM CDT) Only the most recent of3 resultswithin the time period is included. INR 1.5(H) <1.3 02/18/2025 5:47 PM CDT [facility] PROTIME 17.1(H) 10.6 - 12.4 sec 02/18/2025 5:47 PM CDT [facility] Blood BLOOD SPECIMEN / Unknown Venipuncture / Unknown 02/18/2025 5:16 PM CDT 02/18/2025 5:24 PM CDT Narrative [facility] - 02/18/2025 5:47 PM CDT Therapeutic Range 2.0-3.0 for most anticoagulated patients 2.5-3.5 or 4.0 for high risk patients The INR is only used for patients on stable oral anticoagulant therapy. It makes no significant contribution to the diagnosis or treatment of patients whose Protime is prolonged for other reasons. INR results are increased when heparin levels exceed 1.0 U/mL, which corresponds to an aPTT >125 seconds if the patient is on UFH. us Natalya Salgado NP HEMATOLOGY Final Result Performing Organization Address [facility]/ZIP Co de Phone Number [facility] [address] [place] [address], [place] * SCAN-CARDIAC STRIP (02/18/2025 4:46 PM CDT) us Scanner OTHER Final Result * SCAN-CARDIAC STRIP (02/18/2025 4:46 PM CDT) us Scanner OTHER Final Result * (ABNORMAL) COMPREHENSIVE BLOOD GAS MIXED VENOUS (02/18/2025 10:26 AM CDT) Only the most recent of2 resultswithin the time period is included. O2 SATURATION, MEASURED, MIXED VENOUS 60(L) 70 - 75 % 02/18/2025 10:26 AM CDT [facility] PATIENT TEMPERATURE 37.0 Degrees C 02/18/2025 10:26 AM CDT [facility] COLLECTION SITE PULMONARY ARTERY 02/18/2025 10:26 AM CDT [facility] HEMOGLOBIN,BLOO D GAS 11.5(L) 13.5 - 17.5 g/dL 02/18/2025 10:26 AM CDT [facility] Blood BLOOD SPECIMEN / Unknown 02/18/2025 10:26 AM CDT 02/18/2025 10:26 AM CDT us Charanjit Van MD CHEMISTRY Final Re sult Performing Organization Address City/[facility]/ZIP Co de Phone Number [facility] [address] [address], [place] * CVL CORONARY ANGIOGRAM POSS PCI (02/18/2025 9:44 AM CDT) Anatomical Region Laterality Modality Other 02/18/2025 9:44 AM CDT Narrative Transcriptions Preston Wheeler MD, PhD - 02/18/2025 1:[address] [facility] at [facility] Cardiac Catheterization Report Name: ANISH COUGHLIN Event Date: 02/18/2025 09:44 Autumnian ID #: [id number] NAI #: [id number] Patient Class: Inpatient Diagnostic Physician: PRESTON WHEELER [facility] Interventional Physician: PRESTON WHEELER [facility] Referring Physician: Date: 1940 Gender: Male Age: 84 Summary/Conclusions PRESENTATION / INDICATIONS * Acute on Chronic HFrEF * Multivessel CAD * Multivalvular disease VASCULAR ACCESS * Using ultrasound guidance and a percutaneous technique, the right commonfemoral artery was accessed. Ultrasound was used to confirm vesselpatency, localizing needle into the lumen of the vessel. An image wassaved for the medical record. DIAGNOSTIC - CORONARY * Multivessel coronary disease in a right dominant system * Severe ISR of left main extending to proximal and mid Cricumflex * INCIDENT RESPONSE COORDINATOR of the proximal LAD. Distal vessel fills from a patent REYNA * INCIDENT RESPONSE COORDINATOR of the proximal RCA. Distal vessel fills from left to rightcollaterals DIAGNOSTIC - GRAFTS * The REYNA to the LAD is patent * The SVG to the 1st obtuse marginal is occluded * The SVG to the PDA is occluded DIAGNOSTIC - VALVES * Mild-moderate aortic valve stenosis. Valves Aortic Valve Mean Gradient: 10.02 Aortic Valve Area: 1.97 cm2 HEMODYNAMICS Site Systolic Diastolic End Diastolic A Wave V Wave Mean RA 11 17 12 RV 38 5 9 RV 36 4 8 PCW 24 23 17 PCW 18 20 17 PA 36 16 26 LV 143 10 15 INTERVENTION * Successful IVUS guided stenting (drug eluting) of the left main coronaryartery into the proximal and mid Circumflex with a 3.5yco14cr XienceSkypoint. Vessel was prepared with 3.4iln50mr IVL Shockwave Aero.Post-dilated with a 3.5clw71kb NC balloon. Post intervention IVUS revealedgood stent expansion and apposition. * Intracoronary ultrasound was used for lesion assessment DIAGNOSTIC SUMMARY ? 100% stenosis in the Proximal LAD ? 80% calcified stenosis in the Proximal Circumflex ? 99% stenosis in the 1st Marginal ? 100% stenosis in the Proximal RCA ? REYNA to the Mid LAD is patent. ? 100% stenosis in the SVG to 1st Marginal ? 100% stenosis in the SVG to RPDA LEFT VENTRICULAR FUNCTION ? LV Pressure = 143/15. HEMODYNAMICS ? RA=12; RV=38/9; PW=17; PA=36/16, mean 26; INTERVENTION ? 2mm x 12mm Balloon, 2.5mm x 15mm Balloon, Balloon, 3mm x 12mm Balloon,3.5mm x 12mm Balloon, 3mm x 12mm Balloon, IVUS, IVUS, IVUS, and DrugEluting Stent to Proximal Circumflex RECOMMENDATIONS & PLAN * Triple therapy with Aspirin/Plavix/Eliquis for 1 month followed bydouble therapy with Plavix/Eliquis for 1 year. * TERRENCE for severe TR * Continue to monitor . 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 [place] protocol was followed. TIME OUT conducted just prior tostarting procedure confirmed patient identity, site/side, procedure,patient position, and availability of correct equipment and implants (ifapplicable). Staff Name Title Preston Wheeler Diagnostic Sailor Trista Boss RN Nurse Cleopatra Yoon RN Ema Platt IRONER HAND Monitor Michelle Mcdaniels CVT Assisted Living Manager [facility], Deni CVT Scrub Saad Alfonso Fellow Preston Wheeler Trout Farmer Procedures ? Ultrasound Guided Vascular Access ? Ultrasound Guided Vascular Access ? Coronary Angiogram ? Femoral Angio for Possible Closure Device ? Left Heart Cath No Ventriculogram ? Right heart catherization - Jeanie ? Transluminal Intravascular Lithotripsy, Coronary [PCI] ? Stent Placement, Drug Eluting [PCI] Diagnostic Findings * Left Anterior Descending ? 100% stenosis in the Proximal LAD. * Circumflex ? 80% calcified stenosis in the Proximal Circumflex. ? 99% stenosis in the 1st Marginal. * Right Coronary Artery ? 100% stenosis in the Proximal RCA. * Coronary Artery Bypass Grafts ? The graft to the Mid LAD is patent. ? 100% stenosis in the Aorta graft to 1st Marginal. ? 100% stenosis in the Aorta graft to RPDA. Lesion Information Lesion # Vessel Segment Lesion Length Lesion Details Proximal RCA Aorta graft to RPDA Aorta graft to 1st Marginal Proximal LAD 1st Marginal 1 Proximal Circumflex 2 Mid LM Hemodynamics State: Baseline Pressures (mmHg) Site Systolic Diastolic End Diastolic A Wave V Wave Mean RA 11 17 12 RV 38 5 9 RV 36 4 8 PCW 24 23 17 PCW 18 20 17 PA 36 16 26 PA 34 13 25 AO 129 52 82 LV 143 10 15 AO 137 57 90 LV 147 12 20 AO 140 61 91 Valves Aortic Valve Mean Gradient: 10.02 Aortic Valve Area: 1.97 cm2 Oximetry AO: 91.1 % PA: 59.7 % Cardiac Output Estimated Jeanie Output: 4.41 l/min Estimated Jeanie Index: 2.52 l/min/m2 Resistances PVR: 145.1 PVR Index: 253.56 SVR: 1432.83 SVR Index: 2503.95 PVR/SVR: 0.1 Blood Flow Pulmonary (QP): 4.41 l/min Systemic (QS): 4.41 l/min Interventional Results * Circumflex ? Intervention to the Proximal Circumflex 80% lesion using a 2mm x 12mmBalloon, 2.5mm x 15mm Balloon, Balloon, 3mm x 12mm Balloon, 3.5mm x12mm Balloon, 3mm x 12mm Balloon, IVUS, IVUS, IVUS, and a DrugEluting Stent. Interventional Devices Lesion # Vessel Segment Type Name Max Pressure 1 Proximal Circumflex Balloon BLLN 3X12MM NC EMERGE RX 1 Proximal Circumflex IVUS CATH 6F Opticross IVUS 1 Proximal Circumflex IVUS CATH 6F Opticross IVUS 1 Proximal Circumflex IVUS CATH 6F Opticross IVUS 1 Proximal Circumflex Balloon BLLN EUPHORA NC RX 2MM X 12MM 1 Proximal Circumflex Balloon BLLN 2.5X15MM NC EMERGE RX 1 Proximal Circumflex Balloon SHOCKWAVE AERO BLLN 1 Proximal Circumflex Balloon BLLN 3X12MM NC EMERGE RX 1 Proximal Circumflex Balloon BLLN 3.5X12MM NC EMERGE RX 1 Proximal Circumflex Drug Eluting Stent MELLISSA Xience Skypoint RX 3.0mm x48mm 2 Mid LM IVUS CATH 6F Opticross IVUS 2 Mid LM Balloon BLLN EUPHORA NC RX 2MM X 12MM 2 Mid LM Balloon BLLN 2.5X15MM NC EMERGE RX 2 Mid LM Balloon SHOCKWAVE AERO BLLN 2 Mid LM Balloon BLLN 3X12MM NC EMERGE RX 2 Mid LM Balloon BLLN 3.5X12MM NC EMERGE RX Procedure Details Estimated Blood Loss: < 30 ml Specimen Collected: None Level of Sedation Achieved: Moderate Procedure Start: 09:44 Procedure End: 12:47 Procedure Time: 183 min Fluoroscopy Time: 49.6 min Cumulative Air Kerma: 2365 mGy DAP: 123 uGy/M2 Contrast: Omnipaque (low-osmolar), 210 ml Physiologic Data Hemoglobin: 11.6 g/dl Actual VO2: 217.73 Weight: 70.0 kg BSA: 1.75 m2 Vascular Access Time Access Sheath Size 09:51 Right Femoral Artery, sheath inserted 10:10 Right Femoral Vein, sheath inserted. Medications Ordered and Administered Start Time Stop Time Medication Dose Units Route Ordered By Given By 09:34 Fentanyl 25 mcg IV Preston Wheeler Savannah RN 09:34 Versed 0.5 mg IV Preston Wheeler Savannah RN 09:39 O2 2 l per min Nasal cannula Preston Wheeler Savannah RN 09:46 1% Lidocaine 10 ml Subcut Naty, Mishita Naty, Mishita 09:50 1% Lidocaine 10 ml Subcut Naty, Mishita Naty, Mishita 10:12 1% Lidocaine 9 ml Subcut Naty, Mishita Naty, Mishita 10:12 Fentanyl 25 mcg IV Preston Wheeler Savannah RN 10:12 Versed 0.5 mg IV Preston Wheeler Savannah RN 10:44 Fentanyl 25 mcg IV Preston Wheeler Savannah RN 10:44 Versed 0.5 mg IV Preston Wheeler Savannah RN 11:04 Heparin 5000 units IV Preston Wheeler Savannah RN 11:05 Plavix 600 mg PO Preston Wheeler Savannah RN 11:18 Fentanyl 12.5 mcg IV Preston Wheeler Savannah RN 11:18 Versed 0.25 mg IV Preston Wheeler Savannah RN 11:34 Fentanyl 12.5 mcg IV Preston Wheeler Savannah RN 11:34 Versed 0.25 mg IV Preston Wheeler Savannah RN 11:45 Heparin 3000 units IV Preston Wheeler Carole RN 12:27 Fentanyl 25 mcg IV Preston Wheeler Savannah RN 12:27 Versed 0.5 mg IV Preston Wheeler Savannah RN 12:33 O2 3 l per min Nasal cannula Preston Wheeler Savannah RN I personally monitored the patient?s conscious sedation during theprocedure. Conscious sedation starts with the first sedation medication dose ofFentanyl or Versed and ends when the procedure is completed, the patientis stable for recovery status, and the physician or other qualified healthcare professional providing the sedation ends personal [id number]-[id number]-cadl time with the patient. The medications listed above were verbally ordered by me and read back tome as documented above. Refer to the procedure log report for additional case details. electronically signed on 02/18/2025 1:24:50 PM with status of Final Preston Wheeler MD [facility] [address] [place] [address] (p) [phone](f) us Provider Referring CV IMAGING Edited Result - Final * ANTI HCV (02/18/2025 7:54 AM CDT) HEPATITIS C ANTIBODY Non-Reacti ve Non-React raj 02/18/2025 8:49 AM CDT [facility] Comment:Please note, per www .CDC.gov: If a patient is known to be at high risk of HCV infection, or is symptomatic, and the physician's suspicion of HCV infection is high, HCV RNA testing is often employed and is of diagnostic value, even after an initial negative anti-HCV test result. Blood BLOOD SPECIMEN / Unknown Venipuncture / Unknown 02/18/2025 7:54 AM CDT 02/18/2025 8:09 AM CDT Dakota Cotton MD SEND OUTS Final R esult Performing Organization Address [facility] de Phone Number [facility] [address] [place] [address], [place] * ANTI HBS QUANT AHS (02/18/2025 7:54 AM CDT) ANTI HBS QUANT <3.50 mIU/mL 02/18/2025 9:06 AM CDT [facility] Blood BLOOD SPECIMEN / Unknown Venipuncture / Unknown 02/18/2025 7:54 AM CDT 02/18/2025 8:10 AM CDT Narrative [facility] - 02/18/2025 9:06 AM CDT < 10 mIU/mL Individual is considered not immune to HBV infection. >= 10 mIU/mL Individual is considered immune to HBV infection. Biotin supplements may cause clinically significant interference for this test assay. If interference is suspected, it is strongly recommended that biotin is discontinued for at least one week prior to retesting. Dakota Cotton MD SEND OUTS Final R esult Performing Organization Address [facility] de Phone Number [facility] [address] [place] [address], [place] * ANTI HBC (02/18/2025 7:54 AM CDT) ANTI HBC Non-React raj Non-React raj 02/18/2025 9:03 AM CDT [facility] Comment:Anti-HBc Antibodies not detected. Does not exclude the possibility of exposure to or infection with HBV. Levels of Anti-HBc may be below the cut-off in early infection. Blood BLOOD SPECIMEN / Unknown Venipuncture / Unknown 02/18/2025 7:54 AM CDT 02/18/2025 8:10 AM CDT us Dakota Cotton MD SEND OUTS Final R esult [facility] [address] [place] [address], [place] * SCAN-CARDIAC STRIP (02/18/2025 2:45 AM CDT) us Scanner OTHER Final Result * SCAN-CARDIAC STRIP (02/17/2025 3:43 PM CDT) us Scanner OTHER Final Result * SCAN CORRESP-IMAGING (02/17/2025 1:46 PM CDT) Only the most recent of2 resultswithin the time period is included. Anatomical Region Laterality Modality Other Narrative 02/17/2025 1:46 PM CDT Ordered by an unspecified provider. us Other Clinical Staff OTHER Final Resul t * SCAN CORRESP-EKG RESULTS (02/17/2025 1:44 PM CDT) Narrative 02/17/2025 1:44 PM CDT Ordered by an unspecified provider. us Other Clinical Staff OTHER Final Resul t * SCAN CORRESP-LABORATORY RESULTS (02/17/2025 1:42 PM CDT) Narrative 02/17/2025 1:42 PM CDT Ordered by an unspecified provider. us Other Clinical Staff OTHER Final Resul t * SCAN-CARDIAC STRIP (02/17/2025 9:05 AM CDT) us Scanner OTHER Final Result * HBSAG (HBS) (02/17/2025 8:56 AM CDT) HBSAG Nonreactive Nonreactive 02/17/2025 2:32 PM CDT [facility] Blood BLOOD SPECIMEN / Unknown Venipuncture / Unknown 02/17/2025 8:56 AM CDT 02/17/2025 9:26 AM CDT us Dakota Cotton MD SEND OUTS Final R esult [facility] [address] [place] [address], [place] * CTA CHEST ABD PELVIS TAVR - CV DUAL READ (02/17/2025 7:48 AM CDT) Anatomical Region Laterality Modality CHEST, Abdomen, Pelvis Computed Tomography Addenda Addendum by Dante Johnson MD on 02/19/2025 11:33 AM CDT Images from the original result were not included. 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 AROA=0.48 cm2 supportive of severe TR. Gaps are approachable by T-EDDI. Annulus is also suitable for TTVR. Right ventricle is mildly dilated with mildly reduced systolic function with difficult assessment given PVC during the acquisition. Please see radiology report for noncardiac findings. FINDINGS: Left ventricle: Normal LV size with mild concentric LV hypertrophy and severely reduced systolic function. Right ventricle: Mildly dilated right ventricle with moderately reduced systolic function in the presence of severe TR. Left atrium: No evidence of thrombus. Aortic valve: See TAVR report Tricuspid valve: 4 leaflets visualized. IIIB (2 posterior). Leaflets exhibit incomplete coaptation with impingement and adherence by pacemaker lead with the septal leaflet. Tricuspid AROA: 0.48 cm2 Gaps: A-S: 4 mm P-S: 6 mm A-P: 0 mm Tricuspid Annular measurements: Pulmonary veins: Normal anatomy with 2 right-sided and 2 left-sided veins. No evidence of stenosis. Pericardium: Normal without effusion Thoracic aorta: Normal aortic root and thoracic aorta caliber. FOR PATIENT: Results are automatically released to your [employer] ([employer]) account once available, in compliance with federal regulations. This means that you may see your results before your provider has had a chance to review them. Please allow 2-3 business days for your provider to comment on the results. Lynnette Johnson MD, FACC, FSCCT, FSCMR [facility] [address], [address] 02/19/2025 Narrative 02/17/2025 9:39 AM CDT Images from the original result were not included. 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 STUDY PARAMETERS: Scanner: Siemens Definition Force Contrast: 98 ml of Omnipaque 350 Scan protocol: Helical with dose modulation for heart image acquisition. High-pitch for chest, abdomen, and pelvis image acquisition. Radiation dose length product: 2820 for heart and chest, abdomen, pelvis imaging. Image quality: Good FINDINGS: Aortic valve: Aortic valve: Mildly calcified trileaflet valve with reduced leaflet opening excursion. . Aortic valve calcium score 376. Annulus: Angles: Optimal deployment projection (balloon expandable device): CITIZ[place] 10 , FIELD MERCHANDISER 1 Optimal deployment projections (self expandable device): PLASCENCIA 10 , CAU 24 Left ventricle / aortic angle: 55 Access: Not amenable for peripheral access: Patent SENIOR SYSTEMS ADMINISTRATOR stents bilaterally Other findings: Coronary arteries: Unable to assess [place] vessels adequately. Left atrium: Normal contrast opacification Left ventricle septal ECV: 33% Pericardium: Normal without effusion. Thoracic aorta: Left-sided arch. Ulqokurf-ei-Rhisff atheromatous disease in the ascending aorta, arch, and descending thoracic aorta. Abdominal aorta: Normal size and morphology. severe calcifications Noncardiac findings: Please see separate radiology report. FINAL IMPRESSIONS: Mildly calcified trileaflet aortic valve with calcium score of 376 and reduced leaflet excursion. Tricuspid valve with mild septal leaflet impingement. Trileaflet valve. Dimensions - diastole Area 19.3 cm2, Perimeter 159. Systole area 18.5 cm2 and Perimeter 161 Best arterial access approach is carotid. Severe peripheral arterial disease - see images and comments. Aortic annulus has a perimeter of 79 and an annular area of 486 mm . Coronary assessment limited for [place] vessels. Grossly patent REYNA-LAD Occluded SVG - OM Occluded SVG-RCA Given the above imaging findings, further imaging review and multidisciplinary discussion is recommended FOR PATIENT: Results are automatically released to your [employer] ([employer]) account once available, in compliance with federal regulations. This means that you may see your results before your provider has had a chance to review them. Please allow 2-3 business days for your provider to comment on the results. Winston Salgado MD, FACC, FSCCT [facility] 02/17/2025 us Milad Whitfield Randall CAUL FAT PULLER CT Edited Result - Final * CT CARDIAC MORPHOLOGY W CV DUAL READ (02/17/2025 7:48 AM CDT) Anatomical Region Laterality Modality HEART Computed Tomogra phy Addenda Addendum by Dante Johnson MD on 02/19/2025 11:33 AM CDT Images from the original result were not included. 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 AROA=0.48 cm2 supportive of severe TR. Gaps are approachable by T-EDDI. Annulus is also suitable for TTVR. Right ventricle is mildly dilated with mildly reduced systolic function with difficult assessment given PVC during the acquisition. Please see radiology report for noncardiac findings. FINDINGS: Left ventricle: Normal LV size with mild concentric LV hypertrophy and severely reduced systolic function. Right ventricle: Mildly dilated right ventricle with moderately reduced systolic function in the presence of severe TR. Left atrium: No evidence of thrombus. Aortic valve: See TAVR report Tricuspid valve: 4 leaflets visualized. IIIB (2 posterior). Leaflets exhibit incomplete coaptation with impingement and adherence by pacemaker lead with the septal leaflet. Tricuspid AROA: 0.48 cm2 Gaps: A-S: 4 mm P-S: 6 mm A-P: 0 mm Tricuspid Annular measurements: Pulmonary veins: Normal anatomy with 2 right-sided and 2 left-sided veins. No evidence of stenosis. Pericardium: Normal without effusion Thoracic aorta: Normal aortic root and thoracic aorta caliber. FOR PATIENT: Results are automatically released to your [employer] ([employer]) account once available, in compliance with federal regulations. This means that you may see your results before your provider has had a chance to review them. Please allow 2-3 business days for your provider to comment on the results. Lynnette Johnson MD, FACC, FSCCT, FSCMR [address], [address] 02/19/2025 Narrative 02/17/2025 9:39 AM CDT Images from the original result were not included. 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 STUDY PARAMETERS: Scanner: Siemens Definition Force Contrast: 98 ml of Omnipaque 350 Scan protocol: Helical with dose modulation for heart image acquisition. High-pitch for chest, abdomen, and pelvis image acquisition. Radiation dose length product: 2820 for heart and chest, abdomen, pelvis imaging. Image quality: Good FINDINGS: Aortic valve: Aortic valve: Mildly calcified trileaflet valve with reduced leaflet opening excursion. . Aortic valve calcium score 376. Annulus: Angles: Optimal deployment projection (balloon expandable device): [place]IZ[place] 10 , FIELD MERCHANDISER 1 Optimal deployment projections (self expandable device): PLASCENCIA 10 , CAU 24 Left ventricle / aortic angle: 55 Access: Not amenable for peripheral access: Patent SENIOR SYSTEMS ADMINISTRATOR stents bilaterally Other findings: Coronary arteries: Unable to assess [place] vessels adequately. Left atrium: Normal contrast opacification Left ventricle septal ECV: 33% Pericardium: Normal without effusion. Thoracic aorta: Left-sided arch. Wajqcqzq-rj-Ziavoa atheromatous disease in the ascending aorta, arch, and descending thoracic aorta. Abdominal aorta: Normal size and morphology. severe calcifications Noncardiac findings: Please see separate radiology report. FINAL IMPRESSIONS: Mildly calcified trileaflet aortic valve with calcium score of 376 and reduced leaflet excursion. Tricuspid valve with mild septal leaflet impingement. Trileaflet valve. Dimensions - diastole Area 19.3 cm2, Perimeter 159. Systole area 18.5 cm2 and Perimeter 161 Best arterial access approach is carotid. Severe peripheral arterial disease - see images and comments. Aortic annulus has a perimeter of 79 and an annular area of 486 mm . Coronary assessment limited for [place] vessels. Grossly patent REYNA-LAD Occluded SVG - OM Occluded SVG-RCA Given the above imaging findings, further imaging review and multidisciplinary discussion is recommended FOR PATIENT: Results are automatically released to your [employer] ([employer]) account once available, in compliance with federal regulations. This means that you may see your results before your provider has had a chance to review them. Please allow 2-3 business days for your provider to comment on the results. Winston Salgado MD, FACC, FSCCT [facility] 02/17/2025 us Milad Nahid Randall CAUL FAT PULLER CT Edited Result - Final * CTA CHEST ABD PELVIS TAVR - RAD DUAL READ (02/17/2025 7:48 AM CDT) Anatomical Region Laterality Modality CHEST, Abdomen, Pelvis Computed Tomography 02/17/2025 8:58 AM CDT Impressions 02/17/2025 8:58 AM CDT : 1. See separate cardiology report for cardiac findings. 2. Heavy atherosclerosis of the abdominal aorta and its major branches with multifocal stenoses. 3. 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 4. Moderate bilateral pleural effusions. Small ascites. Body wall edema. 5. Distended urinary bladder. 6. Several bilateral pulmonary nodules. Per the Fleischner society criteria, recommend follow-up chest CT in 1 year. Please note that all CT scans at this facility use dose modulation, iterative reconstruction, and/or weight-based dosing when appropriate to reduce radiation dose to as low as reasonably achievable. Dictated by Leigh Sanchez MD @ 02/17/2025 8:58:19 AM (Electronically Signed) Narrative 02/17/2025 8:58 AM CDT For Patients: As a result of the Cures Act, medical imaging exams and procedure reports are released immediately into your electronic medical record. You may view this report before your referring provider. If you have questions, please contact your health care provider. THIS IS THE RADIOLOGY OVER READ REPORT OF A DUAL READ STUDY. READ THE SEPARATE CARDIOLOGY REPORT FOR CARDIOVASCULAR FINDINGS. REPORTS MAY BE FINALIZED AT DIFFERENT TIMES. COMPARISON: 08/19/2024 TECHNIQUE: Please see cardiology report for technical information. This exam is being performed in conjunction with the services provided by the [facility] ([facility]). INDICATION: Cardiac over-read. Chest pain/anginal equivalent with prior revascularization. FINDINGS: CHEST Airway: Normal tracheobronchial tree. Lungs: Bibasilar compressive atelectasis. Mild mosaic attenuation. There are scattered pulmonary nodules measuring up to 4 millimeters. No large consolidations. Pleura: Moderate bilateral pleural effusions. The right-sided effusion is larger than the left side effusion. No pneumothorax. Lymph nodes: No thoracic adenopathy. Mediastinum: No pneumomediastinum. No mass. Heart and great vessels: See cardiac report for details. There is a left subclavian transvenous pacemaker. There is innominate vein stenosis around the pacemaker leads with extensive venous collateralization. Significant contrast reflux into the upper abdominal IVC and hepatic veins likely indicate elevated right heart pressures. No central pulmonary embolism. Chest wall: Pacemaker battery pack site is unremarkable. ABDOMEN AND PELVIS Liver: Normal. No mass. Gallbladder and bile ducts: Cholecystectomy. No bile duct dilation. Pancreas: Normal. Spleen: Normal. Adrenal glands: Normal. Kidneys: Normal parenchyma. No cyst or solid mass. No calculi. No urinary tract dilation. Urinary bladder: The urinary bladder is very distended. Pelvis: No cyst or mass. Vessels: C cardiac report for details. Very heavy atherosclerosis of the abdominal aorta. Patent proximal SMA stent. Likely bilateral moderate renal artery stenosis. 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 Completely occluded proximal left internal iliac artery. High-grade stenosis of the proximal left external iliac artery. There are left external iliac artery stents. There are right external iliac artery stents. Postsurgical change in both groins. High-grade stenosis of the left proximal common femoral artery. Bowel: No dilated or inflamed bowel. Normal appendix. Mild stool burden. Lymph nodes: No adenopathy. Peritoneum: Small ascites. Abdominal wall: Body wall edema. No hernia. BONES: Left hip arthroplasty. Advanced disc and facet degeneration. Prior median sternotomy. 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 Old healed right 11th and 12th rib fractures. No O acute fractures. No worrisome focal bone lesions. Procedure Note Leigh Sanchez MD - 02/17/2025 For Patients: As a result of the 21st Century Cures Act, medical imagingexams and procedure reports are released immediately into your electronicmedical record. You may view this report before your referring provider.If you have questions, please contact your health care provider. THIS IS THE RADIOLOGY OVER READ REPORT OF A DUAL READ STUDY. READ THESEPARATE CARDIOLOGY REPORT FOR CARDIOVASCULAR FINDINGS. REPORTS MAY BEFINALIZED AT DIFFERENT TIMES. COMPARISON: 08/19/2024 TECHNIQUE: Please see cardiology report for technical information. This exam is being performed in conjunction with the services provided bythe [facility] ([facility]). INDICATION: Cardiac over-read. Chest pain/anginal equivalent with priorrevascularization. FINDINGS: CHEST Airway: Normal tracheobronchial tree. Lungs: Bibasilar compressive atelectasis. Mild mosaic attenuation. Thereare scattered pulmonary nodules measuring up to 4 millimeters. No largeconsolidations. Pleura: Moderate bilateral pleural effusions. The right-sided effusion islarger than the left side effusion. No pneumothorax. Lymph nodes: No thoracic adenopathy. Mediastinum: No pneumomediastinum. No mass. Heart and great vessels: See cardiac report for details. There is a leftsubclavian transvenous pacemaker. There is innominate vein stenosis aroundthe pacemaker leads with extensive venous collateralization. Significantcontrast reflux into the upper abdominal IVC and hepatic veins likelyindicate elevated right heart pressures. No central pulmonary embolism. Chest wall: Pacemaker battery pack site is unremarkable. ABDOMEN AND PELVIS Liver: Normal. No mass. Gallbladder and bile ducts: Cholecystectomy. No bile duct dilation. Pancreas: Normal. Spleen: Normal. Adrenal glands: Normal. Kidneys: Normal parenchyma. No cyst or solid mass. No calculi. No urinarytract dilation. Urinary bladder: The urinary bladder is very distended. Pelvis: No cyst or mass. Vessels: C cardiac report for details. Very heavy atherosclerosis of theabdominal aorta. Patent proximal SMA stent. Likely bilateral moderaterenal artery stenosis. Completely occluded right proximal internal iliacartery. Completely occluded proximal left internal iliac artery.High-grade stenosis of the proximal left external iliac artery. There areleft external iliac artery stents. There are right external iliac arterystents. Postsurgical change in both groins. High-grade stenosis of theleft proximal common femoral artery. Bowel: No dilated or inflamed bowel. Normal appendix. Mild stool burden. Lymph nodes: No adenopathy. Peritoneum: Small ascites. Abdominal wall: Body wall edema. No hernia. BONES: Left hip arthroplasty. Advanced disc and facet degeneration. Priormedian sternotomy. The mid to lower sternum is healed but there isnonunion of the upper sternum and manubrium. Old healed right 11th [id number] rib fractures. No O acute fractures. No worrisome focal bone lesions. IMPRESSION: : 1. See separate cardiology report for cardiac findings. 2. Heavy atherosclerosis of the abdominal aorta and its major brancheswith multifocal stenoses. 3. 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 4. Moderate bilateral pleural effusions. Small ascites. Body wall edema. 5. Distended urinary bladder. 6. Several bilateral pulmonary nodules. Per the Fleischner societycriteria, recommend follow-up chest CT in 1 year. Please note that all CT scans at this facility use dose modulation,iterative reconstruction, and/or weight-based dosing when appropriate toreduce radiation dose to as low as reasonably achievable. Dictated by Leigh Sanchez MD @ 02/17/2025 8:58:19 AM (Electronically Signed) Milad Randall NP CT Final Result * CT CARDIAC MORPHOLOGY W RAD DUAL READ (02/17/2025 7:48 AM CDT) Anatomical Region Laterality Modality HEART Computed Tomogra phy 02/17/2025 9:00 AM CDT Impressions 02/17/2025 9:00 AM CDT : 1. See separate cardiology report for cardiac findings. 2. Pleural effusions. Pulmonary nodules. Please note that all CT scans at this facility use dose modulation, iterative reconstruction and/or weight-based dosing when appropriate to reduce radiation dose to as low as reasonably achievable. Please note that all CT scans at this facility use dose modulation, iterative reconstruction, and/or weight-based dosing when appropriate to reduce radiation dose to as low as reasonably achievable. Dictated by Leigh Sanchez MD @ 02/17/2025 9:00:35 AM (Electronically Signed) Narrative 02/17/2025 9:00 AM CDT For Patients: As a result of the 21st Century Cures Act, medical imaging exams and procedure reports are released immediately into your electronic medical record. You may view this report before your referring provider. If you have questions, please contact your health care provider. THIS IS THE RADIOLOGY OVER READ REPORT OF A DUAL READ STUDY. READ THE SEPARATE CARDIOLOGY REPORT FOR CARDIOVASCULAR FINDINGS. REPORTS MAY BE FINALIZED AT DIFFERENT TIMES. : COMPARISON: : Same-day TAVR CTA TECHNIQUE: : Please see cardiology report for technical information. This exam is being performed in conjunction with the services provided by the [facility] ([facility]). INDICATION: Cardiac over-read. FINDINGS: The field of view is limited to the area immediately around the heart. Please see same day CTA chest abdomen pelvis for full [id number] findings. Bilateral pleural effusions. Mosaic attenuation. Few scattered pulmonary nodules. 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 Procedure Note Leigh Sanchez MD - 02/17/2025 For Patients: As a result of the Century Cures Act, medical imagingexams and procedure reports are released immediately into your electronicmedical record. You may view this report before your referring provider.If you have questions, please contact your health care provider. THIS IS THE RADIOLOGY OVER READ REPORT OF A DUAL READ STUDY. READ THESEPARATE CARDIOLOGY REPORT FOR CARDIOVASCULAR FINDINGS. REPORTS MAY BEFINALIZED AT DIFFERENT TIMES. : COMPARISON: : Same-day TAVR CTA TECHNIQUE: : Please see cardiology report for technical information. This exam is being performed in conjunction with the services provided bythe [facility] ([facility]). INDICATION: Cardiac over-read. FINDINGS: The field of view is limited to the area immediately around the heart. Please see same day CTA chest abdomen pelvis for full [id number]. Bilateral pleural effusions. Mosaic attenuation. Few scatteredpulmonary nodules. 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 Prior mediansternotomy with ununited upper sternum and manubrial osteotomy. IMPRESSION: : 1. See separate cardiology report for cardiac findings. 2. Pleural effusions. Pulmonary nodules. Please note that all CT scans at this facility use dose modulation,iterative reconstruction and/or weight-based dosing when appropriate toreduce radiation dose to as low as reasonably achievable. Please note that all CT scans at this facility use dose modulation,iterative reconstruction, and/or weight-based dosing when appropriate toreduce radiation dose to as low as reasonably achievable. Dictated by Leigh Sanchez MD @ 02/17/2025 9:00:35 AM (Electronically Signed) us Milad Randall CAUL [facility] CT Final Result * (ABNORMAL) CBC no diff TODAY (02/16/2025 8:28 PM CDT) WHITE BLOOD COUNT 7.4 4.5 - 11.0 thou/cu mm 02/16/2025 8:40 PM CDT [facility] RED BLOOD COUNT 4.03(L) 4.30 - 5.90 mil/cu mm 02/16/2025 8:40 PM CDT [facility] HEMOGLOBIN 11.6(L) 13.5 - 17.5 g/dL 02/16/2025 8:40 PM CDT [facility] HEMATOCRIT 35.3(L) 37.0 - 53.0 % 02/16/2025 8:40 PM CDT [facility] MCV 88 80 - 100 fL 02/16/2025 8:40 PM CDT [facility] MCH 28.8 26.0 - 34.0 pg 02/16/2025 8:40 PM CDT [facility] MCHC 32.9 32.0 - 36.0 g/dL 02/16/2025 8:40 PM CDT [facility] RDW 14.7 11.5 - 15.5 % 02/16/2025 8:40 PM CDT [facility] PLATELET COUNT 115(L) 140 - 440 thou/cu mm 02/16/2025 8:40 PM CDT [facility] MPV 9.6 6.5 - 11.0 fL 02/16/2025 8:40 PM CDT [facility] NRBC 0.0 % 02/16/2025 8:40 PM CDT [facility] ABS NRBC 0.0 thou /cu mm 02/16/2025 8:40 PM CDT [facility] Blood BLOOD SPECIMEN / Unknown Butterfly / Unknown 02/16/2025 8:28 PM CDT 02/16/2025 8:34 PM CDT us Quentin Shah MD HEMATOLOGY Final Resu lt [facility] [address] [place] [id number], [place] * (ABNORMAL) Hepatic function panel TODAY (02/16/2025 8:28 PM CDT) ALBUMIN 3.7(L) 4.0 - 4.9 g/dL 02/16/2025 8:57 PM CDT [facility] PROTEIN,TOTAL 6.4 6.0 - 8.0 g/dL 02/16/2025 8:57 PM CDT [facility] BILIRUBIN,TOTAL 0.8 0.0 - 1.2 mg/dL 02/16/2025 8:57 PM CDT [facility] BILIRUBIN,DIRECT 0.5(H) 0.0 - 0.2 mg/dL 02/16/2025 8:57 PM CDT [facility] BILIRUBIN,INDIRE CT 0.3 0.2 - 0.8 mg/dL 02/16/2025 8:57 PM CDT [facility] ALK PHOSPHATASE 115 40 - 129 IU/L 02/16/2025 8:57 PM CDT [facility] ALT (SGPT) 25 10 - 50 IU/L 02/16/2025 8:57 PM CDT [facility] AST (SGOT) 41 10 - 50 IU/L 02/16/2025 8:57 PM CDT [facility] Blood BLOOD SPECIMEN / Unknown Butterfly / Unknown 02/16/2025 8:28 PM CDT 02/16/2025 8:34 PM CDT us Quentin Shah MD CHEMISTRY Final Resu lt [facility] [address] [place] [id number], [place] * SCAN-CARDIAC STRIP (02/16/2025 6:39 PM CDT) us Scanner OTHER Final Result * ECHO TTE COMPLETE W CONTRAST (02/16/2025 10:54 AM CDT) AORTIC VALVE MEAN PG 12 mmHg EJECTION FRACTION 32 % PEAK TR VELOCITY 2.4 m/s LVEDD 5.3 cm EJECTION FRACTION 30 - 35% Anatomical Region Laterality Modality Ultrasound 02/16/2025 10:0 9 AM CDT Narrative 02/16/2025 11:15 AM CDT ECHOCARDIOGRAM ANISH COUGHLIN : 1940 84 years Study Date: 02/16/2025 10:09:01 AM Gender: M BP: 158/110 mmHg Height: 168.00 cm BSA: 1.85 m Weight: 75.00 kg Tech: FANY Referring MD: CONNOR MODI Site: [facility] Reading Location: [facility] Patient Location: Inpatient. Procedure: Color Doppler, Spectral Doppler and 2D w/ Contrast. Indication for study: HFrEF Cardiac Rhythm: Irregular.Study quality: Fair. Imaging limitations: This study was subject to imaging limitations due to a prominent lung artifact. Final Impressions: 1. Mildly increased LV size, normal wall thickness, moderately reduced global systolic function with an estimated EF of 30 - 35%. Global hypokinesis. 2. Right ventricular cavity size is moderately enlarged, global systolic RV function is mildly reduced. 3. The aortic valve is calcified and normal, moderate to severe stenosis (low flow, low gradient) and mild regurgitation. The aortic valve peak velocity is 2.2 m/s, the peak gradient is 20 mmHg, and the mean gradient is 12 mmHg. The aortic valve area is 0.98 cm with a dimensionless index of 0.24. The stroke volume index is 25.4 ml/m . 4. 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 5. Echo contrast was administered to enhance visualization of all left ventricular segments. Comparison Compared to prior exam of 01/09/2024: LVEF further reduced, severe TR present, worsening aortic stenosis. Chamber Sizes and Function Mildly increased left ventricular size, normal wall thickness, moderately reduced global systolic function with an estimated EF of 30 - 35%. There is moderate global left ventricular hypokinesis. No resting regional wall motion abnormality visualized. Left atrial size is moderately enlarged. Right ventricular cavity size is moderately enlarged, global systolic RV function is mildly reduced. Dual chamber pacemaker leads are seen in the right atrium and right ventricle. The right atrium is severely enlarged. Right atrial volume index is 57 ml/m . Right atrial area is 28 cm . The pulmonary artery is of normal size and origin. The sinus of Valsalva is normal sized. The ascending aorta is normal sized. Valves, RV Pressures and Diastolic Function The aortic valve is calcified and normal in structure, moderate to severe stenosis and mild regurgitation. Low Flow . The mitral valve is normal in structure, mild mitral regurgitation. Mitral annular calcification is present. Indeterminate pattern of LV diastolic filling. The tricuspid valve is fails to coapt and not well visualized, severe tricuspid regurgitation. The tricuspid regurgitant velocity is 2.4 m/s, the estimated right ventricular systolic pressure is 23 mmHg plus right atrial pressure. The pulmonic valve is normal. Mild pulmonary regurgitation. Masses, Effusion, Shunts There is no pericardial effusion. The inferior vena cava is dilated, respiratory size variation greater than 50%. No left to right shunting was detected by limited color flow Doppler interrogation of the interatrial septum. MEASUREMENTS AND CALCULATIONS 2-D Measurements and LV Function: LVID (d) 5.3 cm LV FS% (2D) 21 % LVID (s) 4.2 cm LVOT diameter 2.3 cm IVS (d) 0.9 cm HR 66 bpm LVPW (d) 0.7 cm LA Vol index 45 ml/m2 Ao Sinus 3.3 cm RA Vol index 57 ml/m2 Ao Sinus ULN 4.1 cm * RA area 28 cm Asc Ao 3.2 cm RV Basal Diam 5.2 cm Asc Ao ULN 4.3 cm * RV Mid Diam 4.7 cm LA 4.5 cm * Input age outside of range, reported values correspond to Age = 81 Diastology: Mitral Tissue Doppler E Peak 0.9 m/s e', Septum 0.08 m/s DT 125 msec e', Lateral 0.08 m/s E/e' Average 11.13 Aortic Valve: Vmax 2.2 m/s [place] (V) 1.01 cm AI P 1/2 642 msec VTI 0.48 m [place] (I) 0.98 cm LVOT V max 0.5 m/s Max PG 20 mmHg LVOT VTI 0.11 m Mean PG 12 mmHg SV 47 ml Dim Index 0.24 SV index 25 ml/m CO 3.1 l/min AV Ejection Time 0.29 sec CI 1.7 l/min/m AV Flow Rate 161 ml/s Mitral Valve: MVA 6.1 cm MV P 1/2 36 msec Tricuspid Valve and estimated PA pressures: TR Vmax 2.4 m/s TR maxG 23 mmHg Contrast documentation: 2 ml diluted Definity, lot #[id number], [facility] 2001# [id number] was administered peripherally to enhance visualization of all left ventricular segments. . This study was interpreted by an [facility] accredited facility. CC: Med/Surg - IP [facility], HIM (med records) [facility]. Final Procedure Note Jani Power MD - 02/16/2025 ECHOCARDIOGRAM ANISH COUGHLIN : 1940 84 years Study Date: 02/16/2025 10:09:01 AM Gender: M BP: 158/110 mmHg Height: 168.00 cm BSA: 1.85 m Weight: 75.00 kg Tech: FANY Referring MD: CONNOR MODI Site: [facility] Reading Location: [facility] Patient Location: Inpatient. Procedure: Color Doppler, Spectral Doppler and 2D w/ Contrast. Indication for study: HFrEF Cardiac Rhythm: Irregular.Study quality: Fair. Imaging limitations: This study was subject to imaging limitations due toa prominent lung artifact. Final Impressions: 1. Mildly increased LV size, normal wall thickness, moderately reducedglobal systolic function with an estimated EF of 30 - 35%. Globalhypokinesis. 2. Right ventricular cavity size is moderately enlarged, global systolicRV function is mildly reduced. 3. The aortic valve is calcified and normal, moderate to severe stenosis(low flow, low gradient) and mild regurgitation. The aortic valve peakvelocity is 2.2 m/s, the peak gradient is 20 mmHg, and the mean gradientis 12 mmHg. The aortic valve area is 0.98 cm with a dimensionless indexof 0.24. The stroke volume index is 25.4 ml/m . 4. 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 5. Echo contrast was administered to enhance visualization of all leftventricular segments. Comparison Compared to prior exam of 01/09/2024: LVEF further reduced, severe TR present, worsening aortic stenosis. Chamber Sizes and Function Mildly increased left ventricular size, normal wall thickness, moderatelyreduced global systolic function with an estimated EF of 30 - 35%. Thereis moderate global left ventricular hypokinesis. No resting regional wallmotion abnormality visualized. Left atrial size is moderately enlarged.Right ventricular cavity size is moderately enlarged, global systolic RVfunction is mildly reduced. Dual chamber pacemaker leads are seen in theright atrium and right ventricle. The right atrium is severely enlarged.Right atrial volume index is 57 ml/m . Right atrial area is 28 cm . Thepulmonary artery is of normal size and origin. The sinus of Valsalva isnormal sized. The ascending aorta is normal sized. Valves, RV Pressures and Diastolic Function The aortic valve is calcified and normal in structure, moderate to severestenosis and mild regurgitation. Low Flow . The mitral valve is normalin structure, mild mitral regurgitation. Mitral annular calcification ispresent. Indeterminate pattern of LV diastolic filling. The tricuspidvalve is fails to coapt and not well visualized, severe tricuspidregurgitation. The tricuspid regurgitant velocity is 2.4 m/s, theestimated right ventricular systolic pressure is 23 mmHg plus right atrialpressure. The pulmonic valve is normal. Mild pulmonary regurgitation. Masses, Effusion, Shunts There is no pericardial effusion. The inferior vena cava is dilated,respiratory size variation greater than 50%. No left to right shunting wasdetected by limited color flow Doppler interrogation of the interatrialseptum. MEASUREMENTS AND CALCULATIONS 2-D Measurements and LV Function: LVID (d) 5.3 cm LV FS% (2D) 21% LVID (s) 4.2 cm LVOT diameter2.3 cm IVS (d) 0.9 cm HR 66bpm LVPW (d) 0.7 cm LA Vol index 45ml/m2 Ao Sinus 3.3 cm RA Vol index 57ml/m2 Ao Sinus ULN 4.1 cm * RA area 28cm Asc Ao 3.2 cm RV Basal Diam5.2 cm Asc Ao ULN 4.3 cm * RV Mid Diam4.7 cm LA 4.5 cm * Input age outside of range, reported values correspond to Age = 81 Diastology: Mitral Tissue Doppler E Peak 0.9 m/s e', Septum 0.08 m/s DT 125 msec e', Lateral 0.08 m/s E/e' Average 11.13 Aortic Valve: Vmax 2.2 m/s [place] (V) 1.01 cm AI P 1/2 642 msec VTI 0.48 m [place] (I) 0.98 cm LVOT V max 0.5 m/s Max PG 20 mmHg LVOT VTI 0.11 m Mean PG 12 mmHg SV 47 ml Dim Index 0.24 SV index 25 ml/m CO 3.1 l/min AV Ejection Time 0.29 sec CI 1.7 l/min/m AV Flow Rate 161 ml/s Mitral Valve: MVA 6.1 cm MV P 1/2 36 msec Tricuspid Valve and estimated PA pressures: TR Vmax 2.4 m/s TR maxG 23 mmHg Contrast documentation: 2 ml diluted Definity, lot #[id number], [facility] 2001#[id number] was administered peripherally to enhance visualization of allleft ventricular segments. . This study was interpreted by an [facility] accredited facility. CC: Med/Surg - IP [facility], [facility] ([facility]) [facility]. Final us Connor Modi MD ECHO ORD Final Result * SCAN-RADIOLOGY REPORT (02/15/2025 12:00 AM CDT) Only the most recent of2 resultswithin the time period is included. Anatomical Region Laterality Modality Other us Scanner OTHER Final Result * SCAN-ULTRASOUND REPORT (02/15/2025 12:00 AM CDT) Anatomical Region Laterality Modality Other us Scanner OTHER Final Result * SCAN-CT INTERPRETATION (02/15/2025 12:00 AM CDT) Anatomical Region Laterality Modality Other us Scanner OTHER Final Result from Last 3 Months Insurance MEDICARE PB ONLY MEDICARE PART B HB ONLY MEDICARE PART A HB ONLY [facility] [address] [id number] MEDICARE PPS [facility] Advance Directives Documents on File Type Date Recorded 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 Healthcare Directive 08/04/2009 HEALTH CARE DIRECTIVE, [facility], 08/04/2009 * Full Code (Latest Code Status on File) Date Activated Date Inactivated Comments 02/26/2025 1:08 PM 02/26/2025 5:30 PM Question Answer Comments Code Status Discussion: Reviewed Preferences * DNR Date Activated Date Inactivated Comments 02/16/2025 7:32 PM 02/21/2025 6:10 PM Question Answer Comments Code Status Discussion: Reviewed Preferences * Full Code Date Activated Date Inactivated Comments 11/14/2023 10:52 AM 11/14/2023 1:17 PM Question Answer Comments Code Status Discussion: Other * Full Code Date Activated Date Inactivated Comments 01/13/2023 4:48 PM 01/14/2023 1:17 PM Question Answer Comments Code Status Discussion: Other * Full Code Date Activated Date Inactivated Comments 01/11/2022 1:12 PM 01/14/2022 2:43 PM Question Answer Comments Code Status Discussion: Reviewed Preferences Care Teams Care Administrative Tech Relationship Specialty Start Date End Date Connor Modi MD [address] [place] [address] PCP - General Family Practice 11/10/16 Yong Siddiqi MD [address] [place] [address] Gastroenterology 05/20/11 Dillan Eubanks MD [address] [place] [address] Cardiovascular Disease 05/20/11 Nurses, Advanced Heart Failure [address] [address] Advanced Heart Failure/Transplant Card 04/02/25 Felipe Kaur MD [address] [address] Cardiovascular Disease 04/02/25
[2025-05-12 22:51] VITALS: BP 121/66; PULSE 82; RESP 18; TEMP 36.3; O2SAT 100; BMI 23.4
--- NOTE | 2025-05-12 23:35 | ED.GENADULT ---
HPI - General Adult General Chief complaint: Epistaxis/Nosebleed Stated complaint: nosebleed Time Seen by Provider: 05/12/25 23:19 Source: patient Mode of arrival: ambulatory Limitations: no limitations History of Present Illness HPI narrative: 85-year-old male, anticoagulated on Eliquis presents today with nosebleed. Patient states he has had for nosebleeds in the last couple of weeks. Nosebleeds can last about 20 minutes but they always stop. He felt that there was a lot of blood today so he came in for evaluation. He stuffed tissues of his nose prior to presenting. The time I some patient has had a nasal clamp in place for approximately 30 minutes. He denies feeling short of breath or lightheaded. No other systemic symptoms. Related Data Home Medications ?Medication ?Instructions ?Recorded ?Confirmed carvedilol 12.5 mg tablet 12.5 mg PO BID 03/13/22 05/12/25 clonidine HCl 0.1 mg tablet 0.1 mg PO Q12H PRN 03/13/22 05/12/25 pramipexole 0.5 mg tablet 0.5 mg PO HS 03/13/22 02/15/25 atorvastatin 80 mg tablet 80 mg PO HS 05/29/22 05/12/25 nitroglycerin 0.4 mg sublingual 0.4 mg sublingual Q5M PRN chest 05/29/22 05/12/25 tablet pain omeprazole 40 mg capsule,delayed 40 mg PO DAILY 05/29/22 05/12/25 release magnesium oxide 400 mg (241.3 mg 400 mg PO HS 09/12/23 05/12/25 magnesium) tablet melatonin 3 mg capsule 3 mg PO HS PRN 09/12/23 05/12/25 multivitamin 1 tab PO DAILY 09/12/23 05/12/25 apixaban 5 mg tablet 5 mg PO BID 02/15/25 05/12/25 aspirin 81 mg tablet 81 mg PO DAILY 02/15/25 05/12/25 carvedilol 6.25 mg tablet 6.25 mg PO HS 02/15/25 02/15/25 polyethylene glycol 3350 17 gram 17 g PO DAILY PRN 02/15/25 02/15/25 oral powder packet (Miralax) potassium chloride 10 mEq 10 meq PO DAILY 02/15/25 05/12/25 tablet,extended release simethicone 125 mg capsule (Gas 125 - 250 mg PO QID PRN 02/15/25 02/15/25 Relief (simethicone)) torsemide 20 mg tablet 20 mg PO DAILY 02/15/25 05/12/25 Previous Rx's ?Medication ?Instructions ?Recorded sennosides 8.6 mg capsule (senna) 8.6 mg PO DAILY PRN constipation 09/14/23 #90 caps Allergies Allergy/AdvReac Type Severity Reaction Status Date / Time amitriptyline (From Elavil) Allergy Verified 09/20/23 20:07 amlodipine Allergy low Verified 09/20/23 20:07 pressures ciprofloxacin Allergy severe Verified 09/20/23 20:07 hives citalopram (From Celexa) Allergy Diarrhea Verified 09/20/23 20:07 erythromycin base Allergy Verified 09/20/23 20:07 escitalopram (From Lexapro) Allergy Depression Verified 09/20/23 20:07 ezetimibe (From Zetia) Allergy Nausea Verified 09/20/23 20:07 hydrochlorothiazide Allergy cramps Verified 09/20/23 20:07 lactose Allergy GI upset Verified 09/20/23 20:07 Penicillins Allergy Hives Verified 09/20/23 20:07 rosuvastatin (From Crestor) Allergy Rash Verified 09/20/23 20:07 sulindac Allergy sedation Verified 09/20/23 20:07 co Q10 Allergy myalgia Uncoded 09/12/23 09:20 Review of Systems Status of ROS: Reports: 6 or more systems reviewed and unremarkable except as noted in History and below [facility] Medical History Ascites ?R18.8 - Other ascites (ICD-10) Pulmonary nodule (06/13/12) ?R91.1 - Solitary pulmonary nodule (ICD-10) Neurogenic bladder ?N31.9 - Neuromuscular dysfunction of bladder, unspecified (ICD-10) HFrEF (heart failure with reduced ejection fraction) (06/14/24) ?I50.20 - Unspecified systolic (congestive) heart failure (ICD-10) 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 - Poisoning by other antidysrhythmic drugs, accidental (unintentional), initial encounter (ICD-10) Inguinal hernia of left side without obstruction or gangrene ?K40.90 - Unilateral inguinal hernia, without obstruction or gangrene, not specified as recurrent (ICD-10) BPH (benign prostatic hyperplasia) ?N40.0 - Benign prostatic hyperplasia without lower urinary tract symptoms (ICD-10) Chronic hyponatremia ?E87.1 - Hypo-osmolality and hyponatremia (ICD-10) History of hallucinations ?Z87.898 - Personal history of other specified conditions (ICD-10) GERD (gastroesophageal reflux disease) ?K21.9 - Gastro-esophageal reflux disease without esophagitis (ICD-10) Critical limb ischemia with history of revascularization of same extremity ?I70.229 - Atherosclerosis of pilot station arteries of extremities with rest pain, unspecified extremity (ICD-10) ?Z98.890 - Other specified postprocedural states (ICD-10) History of Mobitz type II atrioventricular block ?Z86.79 - Personal history of other diseases of the circulatory system (ICD-10) Non-STEMI (non-ST elevated myocardial infarction) ?I21.4 - Non-ST elevation (NSTEMI) myocardial infarction (ICD-10) Peripheral artery disease ?I73.9 - Peripheral vascular disease, unspecified (ICD-10) Peripheral neuropathy ?G62.9 - Polyneuropathy, unspecified (ICD-10) Coronary artery disease ?I25.10 - Atherosclerotic heart disease of pilot [place] coronary artery without angina pectoris (ICD-10) Lactose intolerance ?E73.9 - Lactose intolerance, unspecified (ICD-10) Mixed hyperlipidemia ?E78.2 - Mixed hyperlipidemia (ICD-10) Carotid artery stenosis ?I65.29 - Occlusion and stenosis of unspecified carotid artery (ICD-10) Chronic kidney disease ?N18.9 - Chronic kidney disease, unspecified (ICD-10) Generalized anxiety disorder ?F41.1 - Generalized anxiety disorder (ICD-10) RLS (restless legs syndrome) ?G25.81 - Restless legs syndrome (ICD-10) Surgical History S/P TURP ?Z90.79 - Acquired absence of other genital organ(s) (ICD-10) S/P rotator cuff repair ?Z98.890 - Other specified postprocedural states (ICD-10) S/P placement of cardiac pacemaker ?Z95.0 - Presence of cardiac pacemaker (ICD-10) History of total hip replacement ?Z96.649 - Presence of unspecified artificial hip joint (ICD-10) History of CEA (carotid endarterectomy) ?Z98.890 - Other specified postprocedural states (ICD-10) S/P femoral-popliteal bypass surgery ?Z95.828 - Presence of other vascular implants and grafts (ICD-10) S/P coronary artery stent placement ?Z95.5 - Presence of coronary angioplasty implant and graft (ICD-10) History of laparoscopic cholecystectomy ?Z90.49 - Acquired absence of other specified parts of digestive tract (ICD-10) S/P CABG x 3 ?Z95.1 - Presence of aortocoronary bypass graft (ICD-10) History of coronary angioplasty ?Z98.61 - Coronary angioplasty status (ICD-10) Social History Narrative: Lives in [place]. Independent. 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 Previous smoker. Quit date 1988. No alcohol use. Retired from [employer] . Five adult children. DaughterBailey sets up his medications and helps him with appointments. What is your current living situation?: I presently have a place to live Problems where you live: no known problems Problems where you live details: NA In the past 12 months, utilities in danger of being shut off: no In past 12 months, lack of transportation kept you from medical appts, meetings, work, or getting things needed for daily living: no In the past 12 mos, have been you worried that your food would run out before you had money to buy more?: never true In the past 12 mos, the food you bought just didn't last and you didn't have money to buy more?: never true Highest level of school completed/degree received: 12th grade, no diploma Smoking Status: Former smoker How often do you have a drink containing alcohol: never AUDIT-C Alcohol total score: 0 Non-prescribed substance use: denies use Caffeine: Yes (pepsi) How often does anyone, including family, friends and others, physically hurt you: never How often does anyone, including family, friends and others, insult or talk down to you: never How often does anyone, including family, friends and others, threaten you with harm: never How often does anyone, including family, friends and others, scream or curse at you: never service: No Exam Narrative: Exam Narrative: Well-nourished well-developed elderly patient in no acute distress. Alert and oriented. Answers questions appropriately. Mood and affect are appropriate. Thoughts are goal oriented and rational. No tangential or magical thinking noted. Patient speaks in full sentences without needing to catch his breath. He does not appear ill or toxic. HEENT: Normocephalic atraumatic. Pupils are equally round reactive to light. Extraocular muscles are intact. Conjunctivae are moist without any icterus noted. No pallor noted. Crusted blood in the left nares. No active bleeding noted. Skin: Well perfused. Const: Vital Signs, click to edit/add: Vital Signs - 24 hr 05/12/25 22:51 Temperature 97.4 F L Pulse Rate [Pulse Oximeter] 82 Respiratory Rate 18 Blood Pressure [Ri ght Upper Arm] 121/66 Pulse Oximetry 100 Oxygen Delivery Me thod Room Air Course Vital Signs Vital signs: Initial Vital Signs Temperature 97.4 F L 05/12/25 22:51 Temperature Source Temporal Artery Scan 05/12/25 22:51 Pulse Rate 82 05/12/25 22:51 Respiratory Rate 18 05/12/25 22:51 Blood Pressure 121/66 05/12/25 22:51 Blood Pressure Mean 84 05/12/25 22:51 Blood Pressure Position Sitting 05/12/25 22:51 Pulse Oximetry 100 05/12/25 22:51 Oxygen Delivery Method Room Air 05/12/25 22:51 Vital Signs Temperature 97.4 F L 05/12/25 22:51 Pulse Rate 82 05/12/25 22:51 Respiratory Rate 18 05/12/25 22:51 Blood Pressure 121/66 05/12/25 22:51 Pulse Oximetry 100 05/12/25 22:51 Oxygen Delivery Method Room Air 05/12/25 22:51 Temperature 97.4 F L 05/12/25 22:51 Pulse Rate 82 05/12/25 22:51 Respiratory Rate 18 05/12/25 22:51 Blood Pressure 121/66 05/12/25 22:51 Pulse Oximetry 100 05/12/25 22:51 Oxygen Delivery Method Room Air 05/12/25 22:51 Medical Decision Making MDM Narrative Medical decision making narrative: 85-year-old male with epistaxis, now resolved. We discussed how to proceed should this continue to happen in the future. Discharge Plan Discharge Clinical Impression: Epistaxis Patient Disposition: Home, Self-Care Condition: Improved Instructions: Nosebleed (ED) Additional Instructions: Avoid blowing your nose or inserting anything into the nose for the next 24 hours. Okay to spread a pea size amount of Vaseline inside the nares once daily. If you get another nose heat, put the nose clamp on and do not move it for 30 minutes. If after 30 minutes you removed the nose clamp and the nose continues to bleed, placed a nose clamp back on and proceed to the ER. Prescriptions: No Action clonidine HCl 0.1 mg tablet 0.1 mg PO Q12H PRN Rx Instructions: for hypertensive urgency, 170/90 or greater - RARE USE carvedilol 12.5 mg tablet 12.5 mg PO BID Rx Instructions: IN THE EVENING TAKE WITH 6.25 MG TAB FOR TOTAL OF 18.75 MG pramipexole 0.5 mg tablet 0.5 mg PO HS atorvastatin 80 mg tablet 80 mg PO HS nitroglycerin 0.4 mg tablet, sublingual 0.4 mg sublingual Q5M PRN (Reason: chest pain) omeprazole 40 mg capsule,delayed release(DR/EC) 40 mg PO DAILY carvedilol 6.25 mg tablet 6.25 mg PO HS Rx Instructions: TAKE WITH EVENING DOSE OF 12.5 MG CARVEDILOL FOR TOTAL OF 18.75 MG potassium chloride 10 mEq tablet extended release 10 meq PO DAILY simethicone [Gas Relief (simethicone)] 125 mg capsule 125 - 250 mg PO QID PRN torsemide 20 mg Tablet 20 mg PO DAILY apixaban 5 mg tablet 5 mg PO BID aspirin 81 mg tablet 81 mg PO DAILY polyethylene glycol 3350 [Miralax] 17 gram powder in packet 17 g PO DAILY PRN magnesium oxide 400 mg (241.3 mg magnesium) tablet 400 mg PO HS melatonin 3 mg capsule 3 mg PO HS PRN multivitamin Tablet 1 tab PO DAILY senna 8.6 mg capsule 8.6 mg PO DAILY PRN (Reason: constipation) Qty: 90 0RF Follow Up/Referrals: Monico Modi MD [Primary Care Provider, Family Practice] Stand Alone Forms: Netlog Info Instructions
== END 2025-05-13 00:02 | disposition home or self-care (01) ==
LOC: ED 23:44
PROVIDERS: Emergency Provider Family Medicine; PCP Family Medicine
DX: R04.0 Epistaxis (principal)
CPT/HCPCS: 99282; 99283

== ENCOUNTER 2025-05-23 07:32 | Emergency (ER) | payer MEDICARE, BC, SELFPAY ==
--- OUTSIDE RECORDS SUMMARY | 2025-02-17 18:00 | XMS_ITS | Continuity of Care Document ---
Author Organization [facility] Address [address] [address] [place] [address] Phone Care Team Providers Care Lace Sewer Name Role Phone Anne-Marie Jaquez Unavailable Unavailable Procedures Procedure Date Init Inpt E&M Strtfwd/Low Advance Directives Directive Yes / No Effective Date File Name No Information Encounters Encounter Description Practice Location Reason(s) For Visit Diagnoses Date Provider Providers Copied on Encounter [facility], [address] [address], [place], [place], [id number], tel:[phone] [facility] Hepatic steatosis Sep- Torrie Xei. [address] [facility], [address], [id number] , [place]. [phone] Referring Provider: Anne-Marie RANDOLPH, [address], [address] . tel:[phone] Init Inpt E&M Strtfwd/Low [facility], [address] [address], [place], [place], [id number], tel:[phone] [facility] No Information 5 Yury Duncan. [address] [facility], [address], [id number] , . [phone] Referring Provider: Monico Bartholomew, [address], [place], [address]. tel:[phone] Family History Family Member Type Diagnosis Age At Onset No Information Payers Payer name Insurance type Covered republican ID Authorjamiea viktor(s) Medicare NGS [id number] [facility] Medicare Supplement [id number] Social History Type Description Quantity Date Captured Comments Sex Male Smoking Status No Information Chief Complaint And Reason For Visit No Information Reason For Referral Reason For Referral No Information Plan Of Treatment Date Type Action Status Referral Ordered: follow-up visit with [facility] [id number] Ordered: FibroScan Appointment date/timeframe: First Available ordered History Of Present Illness Encounter Date Complaint History Of Prese nt Illness No Information Functional Status Date Functional Assessmen t No Information Instructions Date Instruction Additional Infor mation No Information Assessments Type Assessment Date assessment Hepatic steatosis Patient Care Teams Name Effective Dates (start - stop) Status Members No Information
--- OUTSIDE RECORDS SUMMARY | 2025-05-23 07:34 | XMS_ITS | Data Portability ---
Author Organization [place] - [facility], auto[employer] - [facility] Address [address] [place] [address] Assessment Encounter Date Assessment Date Assessment LastModified by Organization Details LastModified Time 10/15/2024 10/15/2024 ASSESSMENT: Patient is a good candidate for conservative care and the prognosis is for a favorable outcome thatachieves the patients' goals. We discussed etiology, activity [...] should not hesitate to contact our office. [id number] vuenxlqum47/14/2025 18:18:4905SSESSMENT: Patient is a good candidate for conservative care and the prognosis is for a favorable outcome thatachieves the patients' goals. We discussed etiology, activity [...] should not hesitate to contact our office. [id number] lhhimvelt68/14/2025 18:20:09SSESSMENT: Patient is a good candidate for conservative care and the prognosis is for a favorable outcome thatachieves the patients' goals. We discussed etiology, activity [...] should not hesitate to contact our office. [id number] wujzgmtkj48/15/2025 13:16:04 Plan of Treatment Reminders Order DateSubmit DateProviderLast Modified ByOrganization DetailsLast Modified TimeDetailsAppointmentsNone recorded.LabNone recorded.ReferralNone recorded. ProceduresNone recorded.SurgeriesNone recorded.ImagingNone recorded.Medication OrdersNone recorded. Patient TargetsNo targets recorded. Patient InstructionsNo instructions recorded. Reason for Referral None Reported. Problems Name Problem SNOMED Code Status Onset Date Resolution Date Notes Provider Name and Address Organization Details Recorded Time Thoracic segmental dysfunction 737582137 Active 10/16 [facility] [place]ay [place], [place] [address], [place], [address], [facility]10/16/2024 18:18:50Low back [id number]/14/2025 [facility] Vinay Ley[place]apedro[place], [place] [address], [place], [address], [facility]10/16/2024 18:18:50Lumbar segmental [id number] Agvxaw9010/16/2024Kvngemily Vinay López [place] [address] [place] [address], [place], [address], [facility]10/16/2024 18:18:50Somatic dysfunction of sacral spine [id number]/14/2025Diaz López [place] [address] [place] [address], [place], [address], [facility]10/16/2024 18:18:50 Problem Notes None recorded. Procedures Surgical History Date Name Laterality Status Provider Name and Address Organization Details Recorded Time 10/17/2024 10954: Spinal manipulation, 3 to 4 regions completedDiaz López [place] [address] [place] [address], [place], [address], [facility]10/17/2024 13:16:[id number]: Spinal manipulation, 3 to 4 regionscompletedScofadumo López [place] [address] [place] [address], [place], [address], [facility]10/16/2024 18:20:08598941: Spinal manipulation, 3 to 4 regionscompletedSokfadumo López [place] [address] [place] [address], [place], [address], [facility]10/16/2024 18:19:15 Imaging Results None recorded. Procedure Notes None recorded. Medical Equipment None Reported. Vitals None Recorded Social History None recorded. Functional Status None recorded. Mental Status None recorded. Family History Nothing Reported. Medical History No medical history recorded. Past Encounters Encounter ID Performer Location Encounter Start Date Encounter Closed Date Diagnosis/Indication Diagnosis SNOMED-CT Code Diagnosis ICD10 Code Diagnosis IMO Codes Diagnosis Note [id number] Diaz López DC [facility] [address] [place] [address] [place] [address] 10/15/2024 16:32:47 10/31/2024 19:08:04 Lumbar segmental dysfunction 406622236 M99.03 Low back eqdg190576132I07.50 Somatic dysfunction of sacral ihoxs849507717Z30.04 Thoracic segmental telhdcwsqya691971924Z81.02 [id number] Norbert [facility] & [address] [place] [address] 10/16/2024 09:21: 18:27:22Lumbar segmental cuwfnrffjas250926532 M99.03 Low back fvoo664828224U37.50 Somatic dysfunction of sacral xflfz585133679A96.04 Thoracic segmental fnbcwfuejuo924817026Z97.02 [id number] LeyvapedromarthaNORWALK MEMORIAL [facility] [address] [place] [address] 10/17/2024 09:16:17010/17/2024 15:43:08Lumbar segmental urilnzqnwjx088607116 M99.03 Low back ssug946657608K76.50 Somatic dysfunction of sacral myrjv389688394R93.04 Thoracic segmental spdtugvnilu505193847N76.02 Health Concerns Section Related Observation LastModified by Organization Detai ls LastModified Time None Recorded Concern Status LastModified by Organization Details LastModified Time None Recorded Advance Directives Directive None Recorded Payers Insurance Date Sequence Insurance Name Policy Number Policy Coelho Covered Member ID Coelho Member ID Guarantor Name 11/05/2024 1 [place] [facility] Anish [place] [id number] A[place]: [facility] [id number] [id number] Anish [id number] REMIT PAYORDuane Velazquez Notes Date Note Type Note Provider Name and Address Organization Details Recorded Time 10/15/2024 text/html HPI - Lumbar SpineReported by PatientHPIFor location, patient reportsleft. For quality, patient reportsaching. For severity, patient reportsmoderate. For timing, patient reportsmorning. For aggravating factors, patient reportswalking,lift ing,carrying, andtwisting. For alleviating factors, patient reportsrest. Diaz López [place] [address], [place], [address], [facility] 10/16/2024 18:19:29 10/16/2024 text/html HPI - Lumbar SpineReported by PatientHPIFor location, patient reportsleft. For quality, patient reportsaching. For severity, patient reportsmoderate. For timing, patient reportsmorning. For aggravating factors, patient reportswalking,lift ing,carrying, andtwisting. For alleviating factors, patient reportsrest. Diaz López [place] [address], [place], [address], [facility] 10/16/2024 18:20:36 10/17/2024 text/html HPI - Lumbar SpineReported by PatientHPIFor location, patient reportsleft. For quality, patient reportsaching. For severity, patient reportsmoderate. For timing, patient reportsmorning. For aggravating factors, patient reportswalking,lift ing,carrying, andtwisting. For alleviating factors, patient reportsrest. Diaz López [place] [address], [place], [address], [facility] 10/17/2024 13:16:28
--- OUTSIDE RECORDS SUMMARY | 2025-05-23 07:34 | XMS_ITS | Data Portability ---
Author Organization [place] [facility] [place] [facility], [facility] Address [address] [place] [address] [address] [place] [address] Care Team Providers Care Teacher Resource Name Role Phone CONNOR MIKE Primary Care Provider [phone] Assessment No assessment recorded. Plan of Treatment Reminders Order DateSubmit DateProviderLast Modified ByOrganization DetailsLast Modified TimeDetailsAppointmentsNone recorded.Labculture, urineTHENA [facility], [address] [facility], [address], [place], [address], 03/ 12:25:56infectious disease panel - n/a008/06/2024 08/06/2024THENA[employer], [address] [facility], [place], [address], 9707 15:25:36ReferralNone recorded.ProceduresNone recorded. SurgeriesNone recorded.ImagingNone recorded.Medication OrdersNone recorded. Patient TargetsNo targets recorded. Patient Instructions Encounter Date Encounter Id Patient Instructions Last Modified By Organization Details Last Modified Time 12/20/2021 [id number] Needs to follow up with PF [email or web address] Not available 12/20/2021 15:03:05 Reason for Referral None Reported. Results Created Date Observation Date Name Description Value Unit Range Abnormal Flag Note LastModifiedBy Organization Detail LastModifiedTime 08/06/2024 08/06/2024 URINALYSIS glucose Normal Not AvailableCirrusPinpoint [employer], Inc[employer] INC [address] [facility] [address], [place], [address], 03 15:20:4803URINALYSISproteinNegativeNot AvailableCirrusdx INC [address] [place] [address] 4, [place], [address], 2708/07/2024 15:20:4803//011314/09/2024URINALYSISbilirubinNegativeNot AvailableCirrusdx INC [address] [place] [address] 4, [place], [address], 81 15:20:4803//903059/09/2024URINALYSISurobilinogenNormalNot AvailableCirrusdx INC [address] [place] [address] 4, [place], [address], 1608/07/2024 15:20:480//65962708/06/20243584MBPNKGSPZMuK4.0Not AvailableCirrusdx INC [address] [place] [address], [place], [address], 29 15:20:4803//57668408/06/2024URINALYSISbloodNegativeNot AvailableCir[employer] INC [address] [place] [address], [place], [address], 7608/07/2024 15:20:4803//47473408/06/2024URINALYSISketoneNegativeNot AvailableCir[employer] INC [address] [place] [address] 4, [place], [address], 76 15:20:4803//09211508/06/2024URINALYSISnitriteNegativeNot AvailableCir[employer] [address] [place] [address] 4, [place], [address], 65 15:20:4803//47804208/06/2024URINALYSISleukocytesNegativeNot AvailableCir[employer] [address] [place] [address] 4, [place], [address], 62/10/2024 15:20:4803//706980/09/2024URINALYSISclarityClearNot AvailableCir[employer] [address] [facility] [address], [place], [address], 50/10/2024 15:20:4803/URINALYSISspecific gravity1.008Not AvailableCir[employer] INC [address] [facility] [address], [place], [address], 48/10/2024 15:20:4803//73732708/06/2024URINALYSIScolorLIGHT YELLOWNot AvailableCir[employer] INC [address] [facility] [address], [place], [address], 65/10/2024 15:20:480URINE CULTUREfinal reportMICROBIOLOGY RESULTSSOURCE Catheterized-Straight KNOWN ALLERGIES Penicillins , cipro, erythromycin TREATMENT none MEDIAPLATED AT: Media plated on 08/28/2024 @ 4:16 PM RESULT No Growth This lab result is being provided to you and your provider at the same time in compliance with the Century Cures Act. Your provider may not have had time to review and make recommendations based on the result. Please allow up to one week for provider review.Not AvailableMinn[facility] [address] [facility] [address], [place], [address], 03 12:25:56 /US, bladderNo observation recorded.obqyl3Rnl Available 07/30/2024 10:48:400/T, urogramNo observation recorded.BOSTON Tsang [address], [place], [address], 03/ 22:02:43 Result Notes None recorded. Procedures Surgical History Date Name Laterality Status Provider Name and Address Organization Details Recorded Time 08/27/2024 Cystoscopy- male Mariana Romano MD [address] [facility],[address], [place], [address], [facility] Ixuxkkb2908/27/2024 17:49:13008/27/2024UrinalysiscompletedMiletzi Queen-ValeroM [facility]08/22/2024 16:31:1303ladder Scan completedMiscarlet RiveraM [facility]08/06/2024 14:22:19 12/20/2021Foley Catheter RemovalcompletedLauren [facility] 12/20/2021 15:01:26 Imaging Results None recorded. Procedure Notes None recorded. Medical Equipment None Reported. Allergies Allergen ID Allergen Name Allergen Category Reaction Reaction Severity Criticality Documentation Date Start Date Code Code System Note Provider Name and Address Organization Details Recorded Time 771861 Product containing penicillin (product) m edication Not available Not available Not bonszskff40/04/[id number] QueenKathi [facility]08/06/2024 14:09:27867846myyplbvahgksfpsnboyvgpYih available Not available Not bxugwpwfk01/04/71728990NbWkozTpsdazw [facility]08/06/2024 14:11:50721367pamuingpltmsxhnpugpxwykNsn available Not available Not ghkskpyli68/04/0509864SlIabwPsaesau [facility] Center[facility]08/06/2024 14:11:41296320cdjzfpelykxlwvpfnprjHxi available Not available Not famvibzao65/04/019655542XsDhuiRjiuwsp [facility]08/06/2024 14:12:13880154czujtzobotxrmxckijdiariotcx Not available Not lvjazcqpt98/82427848BzHkldKrrgdn HivesMiscarlet GuptarigalKathi [facility]08/27/2024 16:47:47771526mjbkwcyypjslwnuxunzdgsxfodqe Not available Not uptuoqcca74/12480856DqEnjpMvdibgc QueenKathi [facility]08/27/2024 16:47:54016887nisrhvpbawiyVed availableNot available Not available Not xjkfxwenj32/02/20164131205776CcWaztLxloilff of depression. unrecognized reaction (text: Mental Status Change, code: [id number]) (from ex ternal source)[facility] Qiuoajl2008/27/2024 16:47:15480805afqfvisunxnvkvpcounKsb available Not available Not gfyvydkhh34/11/20116135082195IbMujimbumztyxozbs reaction (text: Nausea And Vomiting, code: [id number]) (from external source)Iva Rivera [facility] Mkabwbt4008/27/2024 16:47:34298024mefkevdniecxhplxwgnvrgxavsrfv myalgias (muscle pain) Not available Not jauvstvli28/04/201699906796BfJlvjzgcvvy from therapy.Iva Rivera [facility] Dnzpwbv4708/27/2024 16:47:37 Medications Name Sig Start Date Stop Date Status Note LastModified by Organization Details LastModified Time coloplast ref 614 fr14 male PERFORM SELF -CATHETERIZATION UP TO 5 TIMES A DAY NEEDED FOR URINARY RETENTION activeNot AvailableNot AvailableNot Availableatorvastatin 80 mg tabletTake 1 tablet every day by oral route.activeNot AvailableNot AvailableNot Available sennosides 8.6 mg tabletTake 2 tablets every day by oral route.activeNot AvailableNot AvailableNot Availableclonidine HCl 0.1 mg tabletTake 1 tablet twice a day by oral route.activeNot AvailableNot AvailableNot Available carvedilol 6.25 mg tabletTake 1 tablet twice a day by oral route.activeNot AvailableNot AvailableNot Availablecarvedilol 12.5 mg tabletTake 1 tablet twice a day by oral route.activeNot AvailableNot AvailableNot Availableketoconazole 2 % shampooWASH TO AFFECTED AREA ON EAR AND CHEST 2-3 TIMES WEEKLY WEEKLY IN THE SHOWER LATHER AND LET SIT FORSEVERAL MINUTES BEFORE RINSINGactiveNot Available Not AvailableNot Availabletorsemide 20 mg tabletTake 1 tablet every day by oral route.activeNot AvailableNot AvailableNot Availablepolyethylene glycol 3350 17 gram oral powder packetTake by oral route.activeNot AvailableNot AvailableNot Availablesimethicone 125 mg capsuleTake by oral route.activeNot AvailableNot AvailableNot Availableomeprazole 40 mg capsule,delayed releaseTake 1 capsule every day by oral route.activeNot AvailableNot AvailableNot Available triamcinolone acetonide 0.1 % topical creamWHEN ITCHY APPLY TO AFFECTED AREA ON EARS AND CHEST 1-2X DAILY FOR 2 WEEKS AT A TIME REPEAT NEEDED FOR FLARES 08/27/2024ompletedNot AvailableNot AvailableNot Availablepramipexole 0.5 mg tabletTake 1 tablet 3 times a day by oral route.activeNot AvailableNot Available Not Availablemagnesium oxide 400 mg (241.3 mg magnesium) tabletTake by oral route.activeNot AvailableNot AvailableNot Availablehydrocortisone 1 % topical creamAPPLY A THIN LAYER TO THE AFFECTED AREA(S) BY TOPICAL ROUTE 2 TIMES PER DAY activeNot AvailableNot AvailableNot Availablenitroglycerin 0.4 mg sublingual tabletPlace by sublingual route.activeNot AvailableNot AvailableNot Available nitrofurantoin monohydrate/macrocrystals 100 mg capsuleTAKE ONE CAPSULE BY MOUTH TWICE DAILY FOR 5 DAYSactiveNot AvailableNot AvailableNot Availablemelatonin activeNot AvailableNot AvailableNot AvailableMultivitamin 50 PlusactiveNot AvailableNot AvailableNot Availableapixaban 5 mg tabletTake 1 tablet twice a day by oral route.activeNot AvailableNot AvailableNot Availablepotassium chloride 10 mEq oral packetTake 1 packet twice a day by oral route.activeNot AvailableNot AvailableNot Available Vitals Date Recorded Body height Body mass index (BMI) Body weight Provider Name and Address Organization Details Last Updated DateTime 08/06/2024 167.64 cm 25.2 kg/m2 13763.41 g Iva ellis [facility] 08/06/2024 14:07:52 Date Recorded Body height Body mass index (BMI) Body weight Provider Name and Address Organization Details Last Updated DateTime 08/27/2024 167.64 cm 25.2 kg/m2 42254.41 g Iva ellis [facility] 08/27/2024 16:47:15 Social History Question Answer Notes LastModified by Organization D etails LastModified Time Tobacco Smoking Status Never Smoker Iva gagnon [facility] Fqoueus2908/06/2024 14:10:13What Is Your Level Of Caffeine Consumption?OccasionalmmadrigalvaleroInformation not rifvjvbfo44/04/2025What Was The Date Of Your Most Recent Tobacco Screening?08/27/2024mmadrigalvalero Information not kpkmcncmu79/25/2025 Sex: Male Functional Status Question Answer Note LastModified by Organization D etails LastModified Time What is your level of alcohol consumption? None mmadrigalvaleroInformation not gdsmealqk04/04/2025 Mental Status None recorded. Family History Relationship Description Onset Age of this Age Resolved Age Notes LastModified by Organization Details LastModified Time Sister Family history of malignant neop lasm of liver mmadrigalvaleroNot tbcacaick99/04/2025 14:20:26 Medical History Condition Response Diabetes N Bleeding Disorder N High Blood Pressure Y Kidney Stones N High Cholesterol N GERD/Acid Reflux Y Heart Disease Y Cancer N Lung Disease N Depression N Immunizations Vaccine Type Date Status Note Provider Nam e and Address Organization Details Recorded Time Influenza, adjuvanted, trivalent, PF 02/06/2018 comp leted Miletzi Queen-Neeta null, [facility]08/06/2024 14:08:15Influenza, adjuvanted, trivalent, PF 03/09/2017completedMiletzi Queen-Neeta null, [facility] Lxfqukb4108/06/2024 14:08:16Influenza, adjuvanted, trivalent, PF 4completedMiletzi Queen-Neeta null, [facility] Irramdk9208/06/2024 14:08:16Influenza, adjuvanted, trivalent, PF 05/06/2019completedMiletzi Queen-Neeta null, [facility] Zwndota2308/06/2024 14:08:16zoster eeqyleioklb98/16/2018completed Miletzi Queen-Neeta null, [facility] Atqbtvg9908/06/2024 14:08:16zoster euikjrkelrd05/10/2018completed Miletzi Queen-Neeta null, [facility] Dbctxfr5508/06/2024 14:08:16Influenza, adjuvanted, quadrivalent, PF 02/25/2020completedMiletzi Queen-Neeta null, [facility] Aseatue6008/06/2024 14:08:16Influenza, adjuvanted, quadrivalent, PF [facility], [facility]08/06/2024 14:08:16Influenza, adjuvanted, quadrivalent, PF 03/11/2021[facility], [facility]08/06/2024 14:08:16Influenza, adjuvanted, quadrivalent, PF 04/28/2023[facility], [facility] Dabqyiv0808/06/2024 14:08:16COVID-19, mRNA, LNP-S, PF, 100 mcg/0.5mL dose or 50 mcg/0.25mL dose07/30/2020[facility] null, [facility]08/06/2024 14:08:16COVID-19, mRNA, LNP-S, PF, 100 mcg/0.5mL dose or 50 mcg/0.25mL dose08/27/2020[facility] null, [facility]08/06/2024 14:08:16Pneumococcal conjugate PCV20, polysaccharide VPN899 conjugate, adjuvant, PF05/23/2022[facility] null, [facility]08/06/2024 14:08:16COVID-19, mRNA, LNP-S, PF, 30 mcg/0.3 mL dose, nelda-jewrtwi1607/14/2021[facility] null, [facility]08/06/2024 14:08:16COVID-19, mRNA, LNP-S, PF, 30 mcg/0.3 mL dose, nelda-yoefojs8212/10/2021[facility] null, [facility]08/06/2024 14:08:16COVID-19, mRNA, LNP-S, bivalent, PF, 30 mcg/0.3 mL dose04/27/2022[facility], [facility]08/06/2024 14:08:16RSV, recombinant, protein subunit RSVpreF, adjuvant reconstituted, 0.5 mL, PF3compPearl [facility] Hospitalal-[facility] null, [facility]08/06/2024 14:08:16COVID-19, mRNA, LNP-S, PF, 50 mcg/0.5 mL5compPearl River County Hospitalal-Neeta null, [facility]08/06/2024 14:08:16pneumococcal polysaccharide PPV23 04/04/2006completedMiletzi Qeuen-Neeta null, [facility]08/06/2024 14:08:03Msrk7607/07/2014completedMiletzi Queen-Neeta null, [facility]08/06/2024 14:08:97Wzuk7807/30/2024[facility], [facility]08/06/2024 14:08:16Novel Keaurpivr-V3I1-97, all rttxovlkhqdk81/05/2010completedMiletzi Queen-Neeta null, [facility]08/06/2024 14:08:16Pneumococcal conjugate PCV 13007/07/2014 completedMilet Queen-Neeta [facility], [facility]08/06/2024 14:08:16pneumococcal, unspecified formulation 05/05/2011completedMiletzi Queen-Neeta null, [facility]08/06/2024 14:08:16zoster live04/24/2007completedMiletzi Queen-Neeta null, [facility]08/06/2024 14:08:16Influenza, high-dose, trivalent, PF 02/16/2015completedMiletzi Queen-Neeta null, [facility]08/06/2024 14:08:16Influenza, high-dose, trivalent, PF 03/31/2016completedMiletzi Queen-Neeta null, [facility] Tfatrgw8408/06/2024 14:08:16Influenza, split virus, trivalent, ruevawvislha70/08/2009completedDeletzi Queen-Neeta null, [facility] Erqrruv6508/06/2024 14:08:16Influenza, split virus, trivalent, skfaxcqmujyk94/14/2012[facility] null, [facility] Qpwojrc0908/06/2024 14:08:16Influenza, split virus, trivalent, rtbsmvgeseky39/26/2013completedDelet Queen-Neeta null, [facility] Naphxin5108/06/2024 14:08:16Influenza, split virus, trivalent, bhczsodnbbls44/28/2003completedDeletzi Queen-Neeta null, [facility] Ebwyzew1308/06/2024 14:08:16Influenza, split virus, trivalent, wviymagnecrp47/28/2008completedDeletzi Queen-Neeta null, [facility] Rdunxsc6708/06/2024 14:08:16Influenza, split virus, trivalent, rhttnodypoga04/31/2006completedDeletzi Queen-Neeta null, [facility] Muthxkp9608/06/2024 14:08:16Influenza, split virus, trivalent, fywswkohflea49/01/2004completedDeletzi Queen-Neeta null, [facility] Sgvzxlr0208/06/2024 14:08:16Influenza, split virus, trivalent, axhzqwbvqesm89/15/2007completedMiletzi Queen-Neeta null, [facility] Oqsrvrh7308/06/2024 14:08:16Influenza, split virus, trivalent, uciwwdvvvxdu82/21/2005completedMiletzi Queen-Neeta null, [facility] Zpecpep8108/06/2024 14:08:16Influenza, split virus, trivalent, PF 02/11/2010completedMiletzi Queen-Neeta null, [facility] Kvzyyxe2608/06/2024 14:08:16Influenza, split virus, trivalent, PF 03/08/2011completedM[facility]acon[facility] Queen-[facility] null, [facility] Kmqfkts4208/06/2024 14:08:16Td (adult), 5 Lf tetanus toxoid, preservative free, bcbvrood73/22/2006completed[facility] Hospital Queen-[facility] null, [facility] Tjuaqnh9808/06/2024 14:08:16Influenza, split virus, quadrivalent, PF02/19/2014completedMideaconess [facility] Queen-Neeta null, [facility] Tuqtlmj0108/06/2024 14:08:16 Past Encounters Encounter ID Performer Location Encounter Start Date Encounter Closed Date Diagnosis/Indication Diagnosis SNOMED-CT Code Diagnosis ICD10 Code Diagnosis IMO Codes Diagnosis Note [id number] MD GLO De León_Norma [address] [place] [address] 12/20/2021 14:24:43 12/23/2021 03:53:18 Retention of urine 243182263 R33.9 Patient went into retention after an angiogram and was not able to self cath. He caths 6-7 times a day, for the last 10 years. Removed colon and used own cath to make sure he was able- did fine.[id number] Drake_Norma [address] [place] [address] 08/06/2024 13:39:32008/08/2024 16:43:30Urinary tract infectious bxfbvps65798014 N39.0 1. UTI- check [facility] UCx- if negative - recommend further evaluation with CT Urogram and CystoscopyRetention of litvn487517321M14.9 2. Urinary retention- s/p TURP - (2005) - Dr. Shen- consider further evaluation with Urodynamic study- continue self-cath - 16 Fr coude 5x/[id number] ENOCH De León_Norma [address] [place] [address] 08/27/2024 16:01:52008/30/2024 11:23:52Urinary tract infectious ylwsdrs70130181 N39.0 1. 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 Urinary retention- s/p TURP - (2005) - Dr. Shen- consider further evaluation with Urodynamic study- continue self-cath - 16 Fr coude 6x/dayPain in fyvpe245019228J25.89 2. Penile pain- may have been due to UTI or prostate irritation- if pain returns and UCx is negative - consider trying Flomax 0.4 mg daily (may help with prostateirritation) Health Concerns Section Related Observation LastModified by Organization Detai ls LastModified Time None Recorded Concern Status LastModified by Organization Details LastModified Time None Recorded Advance Directives Directive None Recorded Payers Insurance Date Sequence Insurance Name Policy Number Policy Coelho Covered Member ID Coelho Member ID Guarantor Name 02/12/2025 1 MEDICARE B-[place]: [facility] Anish [id number] [place] [id number] L [id number] L Dunn Notes Date Note Type Note Provider Name and Address Orga nization Details Recorded Time 08/06/2024 text/html 84 yo [...] + LEUCx (06/14/24) - negativeUCx )07/11/24) - negativeSulaiman Romano MD [address] [place] [address],[facility] [address], [place], [address], [facility] [place] Erzuite6608/06/2024 15:20:text/html 84 yo male with history of CAD [...] (08/19/24) revealed possible right bladder wall thickening. PSA - 1.06 (08/22/05)- 0.91 (03/06/07)- 0.95 [...] (07/11/24) - negativeUCx (CirrusDx) - (08/06/24) - negativeSulaiman Romano MD [address] [place] [address],[address], [place], [address], [facility] [place] Aikmawn7008/27/2024 17:55:27
--- OUTSIDE RECORDS SUMMARY | 2025-05-23 07:35 | XMS_ITS | Clinical Summary ---
Author Organization [facility] Address [address] [place] [address] Care Team Providers Care Industrial Security Analyst Name Role Phone Yong Siddiqi MD Unavailable [phone] FlygenDillan reid MD Unavailable Rowan vailable Monico Modi MD Primary Care Provider Nurses, Advanced Heart Failure Unavailable + Felipe Kaur MD Unavailable [phone] Allergies Active AllergyReactionsCriticalityNoted DateCommentsAmlodipineOther - Describe In Comment Field09/04/2023 Low pressures on just 2.5mg. KvnpbsyjlrCvvougdz43/18/4992FrugxxunizlyqLvlf71/14/2015 Severe Hives Coenzyme X37Zsjokdd21/24/4996NnsmyngjflkwKjtq72/06/2013mitriptylineConfusion, Cakoolqn91/14/2012ErythromycinEdema,XmszwEihu68/30/2007Hydrochlorothiazide Kiesaun1709/14/2015 cramps from therapy. EscitalopramMental Status Yoqpde2411/12/2015 Feelings of depression. WqddndemmwiBfiqmCjbj60/30/2007 ##No similarities in side chains, very low to no risk of cross-sensitivity to ANCEF. [facility] Antimicrobial Stewardship Team 03/2019 QfayioldKwvpcoaz22/30/2011EzetimibeNausea And Ximuyneo11/06/2012 Medications MedicationSigDispense QuantityRefillsLast FilledStart DateEnd DateStatus jteztejbkkpxq-njwmyotn-hahulx (MULTIVITAMIN 50 PLUS) tab tablet Take 1 tablet by mouth once daily in the evening.Active Sennosides 8.6 mg cap Take 8.6 mg by mouth once daily.09/14/2023ctive nitroglycerin (NITROSTAT) 0.4 mg sublingual tablet Indications:Chest pain, unspecifiedDISSOLVE ONE TABLET UNDER TONGUE EVERY 5 MINUTES NEEDED FOR CHEST PAIN FOR UP TO 3 TIMES, IF NO RELIEF, CALL 911.If patient requesting greater than 25 doses in 30 days, to provider to authorize 25 Tablet 10/02/2023ctive Catheter misc Indications:Retention of urine, unspecifiedAs directed. 144 Each ctive apixaban (ELIQUIS) 5 mg tablet Indications:Atrial flutter, unspecified type (HC)Take 1 Tablet (5 mg) by mouth two times daily. 180 Tablet 5Active melatonin 3 mg tablet Indications:Insomnia due to medical conditionTake 1 Tablet (3 mg) by mouth at bedtime if needed for Sleep. 90 Tablet 5Active atorvastatin (LIPITOR) 80 mg tablet Indications:Hyperlipidemia, unspecified hyperlipidemia typeTake 1 Tablet (80 mg) by mouth once daily with evening meal. 90 Tablet 5Active pramipexole (MIRAPEX) 0.5 mg tablet Indications:RLS (restless legs syndrome)TAKE ONE TABLET (0.5 MG) BY MOUTH EVERY DAY AT BEDTIME 90 Tablet 5Active clopidogreL (PLAVIX) 75 mg tablet Indications:Coronary artery disease involving [place] coronary artery of [place] heart without angina pectorisTake 1 Tablet (75 mg) by mouth once daily. Do not stop taking or miss doses for minimum one year/ until OK'd by technical clerk. 30 Tablet 12:46 PM CDT5Active torsemide (DEMADEX) 20 mg tablet Indications:HFrEF (heart failure with reduced ejection fraction) (HC)Take 2 Tablets (40 mg) by mouth once daily. 60 Tablet 12:55 PM CDT5Active carvediloL (Coreg) 12.5 mg tablet Indications:Essential hypertension,NSVT (nonsustained ventricular tachycardia) (HC)Take 1 Tablet (12.5 mg) by mouth two times daily. 180 Tablet 5Active Simethicone 125 mg chewable tablet Indications:DyspepsiaChew 1 Tablet (125 mg) by mouth 4 times daily if needed for Flatulence. Max dose: 500 mg per 24 hrs5Active magnesium oxide (MAG-OX 400) 400 mg tablet Indications:Low magnesium levelTAKE ONE TABLET (400 MG) BY MOUTH ONCE DAILY IN THE EVENING 90 Tablet 5Active thiamine (VITAMIN B1) 100 mg tablet Indications:Cardiovascular symptomsTake 1 Tablet (100 mg) by mouth once daily. 90 Tablet 5Active valsartan (DIOVAN) 40 mg tablet Indications:HFrEF (heart failure with reduced ejection fraction) (HC)Take 0.5 Tablets (20 mg) by mouth two times daily. 90 Tablet 5Active fluticasone (50 mcg per actuation) nasal solution (FLONASE) Indications:Eustachian tube dysfunction, rightInhale 2 Sprays in both nostrils once daily. 16 g 5Active sodium chloride (OCEAN) 0.65 % nasal solution Indications:ETD (Eustachian tube dysfunction), right,Nasal mucosa dryInhale 1 Gregory into affected nostril(s) two times daily. Can use as much as needed- but at least once a day 45 mL 5Active spironolactone 25 mg tablet Indications:Tricuspid valve insufficiency, unspecified etiologyTake 0.5 Tablets (12.5 mg) by mouth once daily. 45 Tablet 5Active omeprazole (PRILOSEC) 40 mg Delayed-Release capsule Indications:Chronic GERDTake 1 Capsule (40 mg) by mouth once daily before a meal. 90 Capsule 5Active empagliflozin (JARDIANCE) 10 mg tablet Indications:Tricuspid valve insufficiency, unspecified etiologyTake 1 Tablet (10 mg) by mouth once daily. 30 Tablet Discontinued(*Allergic/Adverse Rxn/Side Effects) Active Problems Patient Care Coordination No te Formatting of this note migh t be different from the original. HF/Structural/Prevention Research Eligibility Review Date: 06/26/19 Upcoming Visit Location: [facility] Age: 79 y.o. Medicare/Medicaid EF: 50 Valve/Imaging: mild AR, mild TR, trace MR Comments: HF: DNQ Structural: No significant valve disease Prevention: DNQ ProblemNoted DateDiagnosed DateAcute on chronic HFrEF (heart failure with reduced ejection fraction)02/16/2025HFrEF (heart failure with reduced ejection fraction)06/14/2024NSVT (nonsustained ventricular tachycardia)06/14/2024Left ventricular hurqbdjmzuc89/28/2024Frequent PVCs107/24/2021GERD (gastroesophageal reflux disease)01/11/2022tatus post placement of cardiac wijfmpmpz76/22/2020AV block, 2nd rovjfc8402/19/2020 Overview (02/19/2020): status post PPM 02/18/2020 Peripheral artery disease (HC) Lifelong Plavix.06/30/2019 Overview (06/30/2019): s/p Left femoral endarterectomy, R SFA stent 11-23-11, s/p Right femoral endarterectomy, right external iliac stent Left SFA stent 05-24-2012 NSTEMI (non-ST elevated myocardial infarction)06/30/20190254Rlirtfmmjnw47/25/2018 Labile blood astwomdb65/05/2017BPH (benign prostatic hypertrophy) with urinary hukcryxer86/11/2016Pulmonary xzvpjb1406/13/2012 Overview (06/13/2012): Found on CTA June 2012- consider follow up CT chest no contrast in 6 months. ACP (advance care planning)05/27/2012 Overview (05/27/2012): Patient has identified Health Care [...] Treatment Preferences: a.) Code Status: CPR/Attempt Resuscitation Zgooaxaeu41/10/2012CAD (coronary artery disease)10/04/2011 Overview (06/30/2019): - Hx of CABG 1996: [...] the 04/22/2010 study. - angiogram 12/01/16: Lactose egpjfzfpmju23/13/2012Mixed qxmzbuzwtvhbln76/08/2012Carotid artery frhhkbye95/27/2011CKD (chronic kidney disease) stage 3, GFR 30-59 ml/min 05/20/2011nxiety state, attdezkitiu53/06/2011RLS (restless legs syndrome) 10/28/2008Vesicoureteral reflux, unspecified or without reflux nephropathy Overview (06/30/2019): He voids every 2-4 hours during the day and??caths at??night. He self-caths??2-4x/day and 3x/night. Stenosis of right carotid artery without cerebral infarctionAnemiaNeurogenic bladder Resolved Problems ProblemNoted DateDiagnosed DateResolved DateOther lnuwbwy85/ Pleural fibsrsgg61Hypertension/4Cramps, muscle, uellxpg90GERD (gastroesophageal reflux disease) 2Chest pain, mszcvyyysjw92/07/201306/11/2016Hemoptysis Overview (05/27/2012): CT chest with contrast on 05/30 ~4 cm are of infiltrate/inflammation in the LLL. Small cavity component may be present within this infiltrate. Rest of lungs are clear. No PE Zebgcsiys23iceps rupture, taamqomc34 Overview (05/22/2012): On both sides, left greater than right. Other secondary ijksewzjktpj25Leg fmakzl34 Cramp of both lower cwqgrqbxbzd47Neck pain11/05/ Chest painColon polyp Overview (09/21/2010): Colonoscopy 09/2010 polyp, incomplete study, recommend barium enema- diverticuli, recommend BE in 5 years URI (upper respiratory infection)RTERIOSCLEROTIC HEART WSOHHDO56Long term (current) use of jwnyqitmuylmeq38/13/2010 03/08/2011 Overview (09/15/2009): INR Goal Range: 1.5 - 20 Jljnqxqt61 Overview (02/17/2009): -with Pletal PVD (peripheral vascular disease)PAD (Peripheral Artery Disease) with claudication--s/p L iliac stent 98;AUTO PORTER L popliteal 9-15-09 Overview (11/24/2011): S/p Left common femoral endarterectomy and R SFA stent (11/23/2011) Other dyspnea and respiratory iimpnbrvdva74Dizziness and japocithl85hortness of vnffot16Esophageal /05/ Overview (07/02/2013): EGD 06/2009 benign gastric polyps EGD 06/2013 benign gastric polyps Cor Athrscl-Uns Oyiivd6010/04/2011 Overview (02/17/2009): -prior SC's in 1995, 2000 -CABG 1995 -Multiple PCI with 8 stents, last 03/12 -Myoview in 08/11 with fixed inferior defect, minimal urbano-infarct ischemia, LVEF 60% Pure uwiojdwjqkoshhxvejvb44/04/2011Unspecified Essential Lpsrttrdpvax70/10/2012 Other and Unspecified Fawfxxnadrmhwl06/14/2012Critical limb ischemia of left lower oldicclle36/23/2024 Encounters DateTypeDepartmentCare OzsoZlpuonurhdt50/17/2025Results Follow-Up [facility] [address] [place] [address] Terra López RN 05/20/2025 1:30 PM CSTOrders Only [facility] [address] [place] [address] Lab, [place] Lab05/20/2025 8:[address] [facility] [address] [place] [address] Thqmrkn1405/20/2025Results Follow-Up [facility] [address] [place] [address] Brittney Francisco MD 05/20/20255511Qvioxs30/08/2025Results Follow-Up [facility] [address] [place] [address] Brittney Francisco MD 05/09/2025 2:45 PM CSTOrders Only [facility] [address] [place] [address] Lab, [place] Lab05/09/20251299Cvgaki33/26/2025Orders Only [facility] [address] [place] [address] Brittney Francisco MD <No scans attached>04/30/2025Telephone [facility] [address] [place] [address] Felipe Kaur MD Results (BMP)04/29/2025 9:[address] [address] [place] [address] Brittney Francisco MD Follow Up (Coronary artery disease /Echo 02/19/2025 /Pace maker )04/29/2025Travel 04/28/2025Telephone [facility] [address] [place] [address] Yasmine Woods RN Device Check (AF Alert)04/01/2025 3:[address] [address] [place] [address] Felipe Kaur MD CV Heart Failure New (Appointment Note//SEGUNDO NEW PT REF BY DR WHELE[facility] PRIOR DONE AT [facility]//)04/01/20254385Ydylwz14/23/2025 10:00 AM CDTHome Care Visit [facility] [address] [place] [address] Iliana Van, RN SN - OASIS EHLLKHNNP91/23/2025 8:00 AM CDTHome Care Visit [facility] [address] [place] [address] Luh Haro LEAN LEADER - HOME VISIT03/24/2025 12:00 PM CDTHome Care Visit [facility] [address] [place] [address] Luh Haro LEAN LEADER - HOME VISIT03/24/2025 9:00 AM CDTHome Care Visit [facility] [address] [place] [address] Carrillo Horowitz, PT PT - DISCIPLINE LWEXSCYAY78/15/2025 12:00 PM CDTHome Care Visit [facility] [address] [place] [address] Luh Haro LEAN LEADER - HOME VISIT03/19/2025 8:00 AM CDTOffice Visit [address] [phone] Anne-Marie Corley PA Consult (Eustachian tube dysfunction, right)03/19/2025 7:30 AM CDTOffice Visit [address] [phone] Anne-Marie Parr AuD Ear Problem (Hearing test )03/19/20255092Mrlgyf84/14/2025 1:30 PM CDTHome Care Visit [facility] [address] [place] [phone] Iliana Van, LIZZ SN - HOME VISIT03/18/2025 12:00 PM CDTHome Care Visit [facility] [address] [place] [phone] Carrillo Horowitz, GABRIEL PT - HOME VISIT03/17/2025 7:00 AM CDTHome Care Visit [facility] [address] [place] [phone] Luh Haro LEAN LEADER - HOME VISIT03/17/2025Orders Only [facility] [address] [place] [address] Felipe Kaur MD <No scans attached>03/14/2025 7:00 AM CDTHome Care Visit [facility] [address] [place] [phone] Luh Haro LEAN LEADER - HOME VISIT03/14/2025Telephone [facility] [address] [place] [address] Felipe Kaur MD Lab03/14/2025Orders Only [facility] [address] [place] [address] Preston Wheeler MD, PhD CV Heart Failure Est ([facility])03/13/2025 3:45 PM CDTOffice Visit [facility] [address] [facility] [place] [address] Monico Modi MD Follow Up03/13/20256979Sxrrli57/06/2025 12:00 PM CDTHome Care Visit [facility] [address] [place] [address] Lizzie Stein LPN CARBON DIOXIDE OPERATOR - HOME VISIT03/10/2025 11:00 AM CDTHome Care Visit [facility] [address] [place] [address] Carrillo Horowitz, PT PT - ZFZVTGHTRSLW92/02/2025 2:30 PM CDTHome Care Visit [facility] [address] [place] [address] Iliana Van, LIZZ SN - HOME VISIT03/05/2025 10:15 AM CDTHome Care Visit [facility] [address] [place] [address] Herrera Sewell, PT PT - HOME VISIT03/03/2025 4:00 PM CDTHome Care Visit [facility] [address] [place] [address] Luh Haro LEAN LEADER - HOME VISIT03/03/2025 9:00 AM CDTHome Care Visit [facility] [address] [place] [address] Lizzie Stein LPN CARBON DIOXIDE OPERATOR - HOME VISIT02/28/2025 3:20 PM CDTOffice Visit [facility] [address] [facility] [place] [address] Monico Modi MD Hospital F/U ([facility], 02/16/2025 - 02/21/2025, 02/26/2025, heart failure )02/28/2025 9:00 AM CDTHome Care Visit [facility] [address] [place] [address] Herrera Sewell, PT PT - INITIAL BEQCGUVBKF70/26/5263Oyfmzw44/25/2025 1:30 PM CDTHome Care Visit [facility] [address] [place] [address] Luh Haro LEAN LEADER - HOME VISIT02/26/2025 2:08 PM CDTAnesthesia Event [facility] [address] [place] [address] Gus Moreira MD Elvester, Danica K, SAND CASTER 02/26/2025 11:59 AM CDT - 02/26/2025 3:25 PM CDTHospital Encounter [facility] [address] [place] [address] Chaz Olivo MD Elvester, Danica K, SAND CASTER Marco Mathew MD Discharge Disposition: Home Self Care02/26/2025 9:00 AM CDTHome Care Visit [facility] [address] [place] [address] Farzana Laguerre, LIZZ SN - OASIS START OF CARE02/26/2025Telephone [facility] [address] [place] [address] Farzana Laguerre, natural history collections curator (HOME CARE ORDERS)02/26/20257082Pxdmol00/24/2025Plan of Care Documentation [facility] [address] [place] [address] 02/25/2025Nurse Triage [facility] [address] [place] [address] Marielena Perez, LIZZ Diarrhea; Low Blood Pressure; Jszlpcvnwqo10/22/2025llina Research [facility] [address] [place] [address] Jani Coe, LIZZ Research (Cidra BEVERLEYyne TTRV Research Trial)02/24/2025Telephone [facility] [address] [facility] [address] [place] [phone] Leigh Oviedo, LIZZ Device Check02/24/2025Telephone [facility] [address] [place] [address] Monico Modi MD Lab02/24/2025Patient Outreach [facility] [address] [place] [address] Alta Davis, LIZZ Primary RN Care Management; Hospital F/U (Lace=75)02/21/2025 4:[address] [facility] [address] [facility] [address] [place] [phone] Chaz Olivo MD CV Electrophysiology Est (FOLLOW UP /Device Check prior to appt /DX: NSVT /Coronary artery disease involving [place] coronary artery of [place] heart without angina pectoris /)02/16/2025 5:27 PM CDT - 02/21/2025 3:40 PM CDT Hospital Encounter [facility] [address] [place] [address] [facility] Hospitalists Of Alyssa, MD Rehan Lozano, MD Mehrdad Branch, Huey Interiano MD Coronary artery disease involving [place] coronary artery of [place] heart without angina pectoris (Primary Dx); Cardiovascular symptoms; HFrEF (heart failure with reduced ejection fraction) (HC); Essential hypertension; NSVT (nonsustained ventricular tachycardia) (HC) Discharge Disposition: Home Healthfrom Last 3 Months Immunizations ImmunizationAdministration DatesNext DueAMB Influenza, IIV3 (Age >=3 years)(Flu Clinic Only)02/28/2013COVID-19 VACCINE SPIKEVAX (MODERNA 50MCG/0.5ML) 12YO+ PFS 5COVID- vaccine (Moderna 100mcg/0.5mL) PF, MDV07/30/2020OVID-19 vaccine (Pfizer-BioNTech 30mcg/0.3mL) 12YO+ BIVALENT PF, MDV12COVID-19 vaccine ([place] WaVE 30mcg/0.3mL) 12YO+ REYNA-SUCROSE PF, MDV12/10/2021, 07/14/2021Influenza A (H1N1), Rdecamxmqfb17/05/2010Influenza A (H1N1), Inactivated (Age >=3 Years)06/09/2009Influenza, High-dose Zgkkydvzeup63/27/2016, 02/16/2015Influenza, IIV3 (Age 6-35 mos)03/08/2011,02/11/2010Influenza, IIV3 (Age >=3 years)02/28/2013,02/17/2012,03/08/2011,02/11/2010,02/10/2009,04/01/2008 ,04/19/2007,04/04/2006,04/25/2005,04/05/2004,04/01/2003Influenza, DYW795 Influenza, Inactivated AIIV4 (Age 65+ Years) Preserv Free04/28/2023,03/10/2022, 03/11/2021,02/25/2020Influenza, Inactivated IIV3 (Age 65+ Years) Preserv Free 04/29/2024,05/06/2019,02/06/2018,03/09/2017Pneumococcal Conj 20-valent (Prevnar 20)05/23/2022neumococcal Poly,23-Valent (Pneumovax)04/04/2006,10/02/1995 Pneumococcal conj 13-Valent (Prevnar 13)07/07/2014Pneumococcal, Unspecified 05/05/2011RSV, Recombinant ADJ Reconstituted (Arexvy 120MCG/0.5mL)05/24/2023Td (Age >=7 Years)04/26/2006,10/02/1995Td, Preservative Free (age >= 7 Years) 04/26/2006Tdap07/30/2024,07/07/2014Zoster (Shingrix-RZV, recombinant)04/14/2018, 12/18/2017Zoster (Zostavax-ZVL, live)04/24/2007 Family History Medical HistoryRelationNameCommentsHeart DiseaseBrother 1#2ICDGood HealthBrother 2#1Good HealthBrother 3#3OtherSister?TB of cheek at age 5Anesthesia ProblemNo Family HistoryRelationNameStatusCommentsBrother 1#2Brother 2#1Brother 3#3Father (Age 73)CAD, cirrhosis, tobacco/EtohMotherDeceased (Age 83)CADSister Social History Tobacco UseTypesPacks/DayYears UsedDateSmoking Tobacco: CbbznfJgzvemgqna299 06/05/1958 - 06/05/1988Smokeless Tobacco: Never Tobacco Cessation:Counseling Given: Yes Alcohol UseStandard Drinks/WeekCommentsNo0 (1 standard drink = 0.6 oz pure alcohol)not for 35 yrsPHQ-2AnswerDate RecordedPHQ-2 TOTAL SJVAG165Social ConnectionsAnswerDate RecordedDo you often feel lonely or isolated from those around you?lcohol UseAnswerDate RecordedHow often do you have a drink containing alcohol?How many drinks containing alcohol do you have on a typical day when you are drinking?How often do you have five or more drinks on one occasion?Financial Resource StrainAnswer Date RecordedDifficulty of Paying Living Pdnmhhqj969/14/2025Difficulty of Paying Living ExpensesNot on file02/16/2025Food InsecurityAnswerDate RecordedDo you worry your food will run out before you are able to buy more? Transportation NeedsAnswerDate RecordedDoes lack of transportation keep you from medical appointments?Does lack of transportation keep you from work, meetings or getting things that you need?Housing StabilityAnswerDate RecordedWhat is your housing situation today?Interpersonal Safety AnswerDate RecordedAre you being hit, kicked, pushed or yelled at (see row info)?No02/26/2025Interpersonal Safety Abuse 12 - 18Not on file02/26/2025 Interpersonal Safety Ambulatory VulnerabilityNot on 02/26/2025Utilities AnswerDate RecordedDo you have trouble paying for utilities (for example, heat, electricity, water, phone)?Sex and Gender InformationValueDate RecordedSex Assigned at BirthNot on fileLegal AzkKstn1706/18/2012 5:24 AM ART PROFESSOR Gender IdentityNot on fileSexual OrientationNot on fileOccupationIndustryJob Start DateJob End Dateretired, worked at [employer] foodsNot on fileNot on fileNot on file Last Filed Vital Signs Vital SignReadingTime TakenCommentsBlood Rgtepwza282/7504/29/2025 9:03 AM ART PROFESSOR Bvjqh099504/29/2025 9:03 AM YRYIbcxvaargmn60.2 ??C (97.2 ??F)03/27/2025 9:56 AM CDTRespiratory Iomc1635 9:56 AM CDTOxygen Uhsadyczja66%04/29/2025 9:03 AM CSTInhaled Oxygen Concentration--Oofteo56 kg (150 lb)04/29/2025 9:03 AM ART PROFESSOR Nvsqqp804.6 cm (5' 5.98)04/01/2025 2:43 PM CDTBody Mass Index24.221 2:43 PM CDT Plan of Treatment DateTypeDepartmentCare Team (Latest Contact Info)Qxbxupjgbcy22/22/2025 1:00 PM CSTOffice Visit [facility] [address] [facility] [address] [place] [address] Preston Wheeler MD, PhD [address] [place] [address] 06/20/2025 1:[address] [address] [place] [address] 06/20/2025 2:[address] [facility] [address] [place] [address] Felipe Kaur MD [address] [place] [address] 06/26/2025ardiac Device Check [facility] [phone] 07/17/2025 10:15 AM CSTOrders Only [facility] [address] [place] [address] Lab, [place] 07/21/2025 10:05 AM CSTOffice Visit [facility] [address] [place] [address] Monico Modi MD [address] [place] [address] Health MaintenanceDue DateLast DoneCommentsCOVID-19 vaccine series ( season)5006/14/2024, 04/27/2022, 12/10/2021, Additional history exists Influenza Vaccine (#1), 04/28/2023, 03/10/2022, Additional history existsMedicare Wellness for age 65+, 04/28/2023, 08/24/2021, Additional history existsDepression screening for age 12+07/22/2025 07/22/2024, 07/18/2024, 04/28/2023, Additional history existsBMI (ht and wt on same day) for age 18+, 02/21/2025, 07/18/2024, Additional history existsTetanus /25/19393807/30/2024, 07/07/2014, 04/26/2006, Additional history existsZoster (shingles) series for age 50+Completed 04/14/2018, 12/18/2017, 04/24/2007Pneumococcal series for age 50+Completed 05/23/2022, 07/07/2014, 05/05/2011, Additional history existsRSV vaccine for adults or bgrpzymvdFmiahwwzv03/20/2023Hepatitis B series for 19+Aged OutNo longer eligible based on patient's age to complete this topic Goals GoalPatient Goal TypeAssociated ProblemsRecent ProgressPatient-Stated?Author BLOOD PRESSURE - MAINTAINS BP less than 140/90 Blood PressureAlpesh Dixon MD Medical Devices ImplantedTypeAreaManufacturerDevice IdentifierShelf Expiration DateModel / Serial / LotPatch Vasc 0.8x8cm Biological Peripatch - [id number] Implanted:Qty: 1 on 11/23/2011 [facility]: Femoral ArteryLeMaitre Vascular Inc03/24/20140.8P8# / / [id number] - [id number] Implanted:Qty: 1 on 05/24/2012 by [facility] [place]: Femoral ArteryBIO-VASCULAR INC11/25/[id number]# / / [id number] Vasc 0.8x8cm Xenosure Biological Pericardial - [id number] Implanted:Qty: 1 on 08/12/2016 by [facility]: Carotid ArteryLeMaitre Vascular Inc.8P8# / / [id number] Procedures Procedure NamePriorityDate/TimeAssociated DiagnosisCommentsBASIC METABOLIC PANEL Wfbnsvq0205/20/2025 8:36 AM ART PROFESSOR HFrEF (heart failure with reduced ejection fraction) () ECHO TTE LIMITED WO CONTRAST W COLOR W LTD IIZOYOFHtftppw60/16/2025 8:26 AM ART PROFESSOR HFrEF (heart failure with reduced ejection fraction) (HC) BASIC METABOLIC ECDHEDpdaszn69/05/2025 11:28 AM ART PROFESSOR Acute on chronic HFrEF (heart failure with reduced ejection fraction) (HC) PRO-TSXFaipwqg31/05/2025 11:28 AM ART PROFESSOR Acute on chronic HFrEF (heart failure with reduced ejection fraction) (HC) BASIC METABOLIC HRWCCVgxbxaw33/25/2025 10:07 AM ART PROFESSOR Tricuspid valve insufficiency, unspecified etiology BASIC METABOLIC XWHBBXlwcgam13/09/2025 4:08 PM CDT Stage 3b chronic kidney disease (HC) BASIC METABOLIC PXHPMWbxkrwq28/26/2025 4:51 PM CDT HFrEF (heart failure with reduced ejection fraction) (HC) EKG 12 NKLSWzozk16/24/2025 2:18 PM CDT EP LBSPVSKBJTLJVMlajucm04/24/2025 2:15 PM CDT ISTAT CHEM 4Fwjyq8402/26/2025 1:47 PM CDT EKG 12 GDLHDegxlye04/24/2025 12:58 PM CDT NSVT (nonsustained ventricular tachycardia) (HC) SCAN-CARDIAC STRIP02/26/2025 12:00 AM CDT BASIC METABOLIC PANELEarly AM02/21/2025 7:50 AM CDT PLATELET NJBIRUpyet92/19/2025 7:50 AM CDT SCAN-CARDIAC STRIP02/21/2025 4:39 AM CDTSCAN-CARDIAC STRIP02/21/2025 4:39 AM CDT from Last 3 Months Results * (ABNORMAL) BASIC METABOLIC PANEL (05/20/2025 8:36 AM ART PROFESSOR) Only the most recent of6 resultswithin the time period is included. ComponentValueRef RangeTest MethodAnalysis TimePerformed AtPathologist Signature FAFODE203(L)135 - 146 mmol/L107/22/2024 4:26 AM CSTQUEST DIAGNOSTICSPOTASSIUM4.4 3.5 - 5.3 mmol/L107/22/2024 4:26 AM CSTQUEST DIAGNOSTICSCARBON EYVECXE5126 - 32 mmol/L107/22/2024 4:26 AM CSTQUEST AYQHVSOFNGFFEOIPOK3211 - 99 mg/dL05/21/2025 4:26 AM CSTQUEST DIAGNOSTICSComment: ? Fasting reference interval CALCIUM9.38.6 - 10.3 mg/dL05/21/2025 4:26 AM CSTQUEST DIAGNOSTICSCREATININE1.53 (H)0.70 - 1.22 mg/dL05/21/2025 4:26 AM CSTQUEST DIAGNOSTICSBUN/CREATININE RATIO 23(H)6 - 22 (calc)05/21/2025 4:26 AM CSTQUEST YUIJAMBMJBYWQSP06(L)> OR = 60 mL/min/1.93h99105/21/2025 4:26 AM CSTQUEST DIAGNOSTICSUREA NITROGEN (BUN)35(H)7 - 25 mg/dL05/21/2025 4:26 AM CSTQUEST DIAGNOSTICSELECTROLYTE TTGMBVS63 - 17 mmol/L (calc)05/21/2025 4:26 AM CSTQUEST YPRALBMCBKDVHUBAAIR1760 - 110 mmol/L107/22/2024 4:26 AM CSTQUEST DIAGNOSTICSSpecimen (Source)Anatomical Location / Laterality Collection Method / VolumeCollection TimeReceived TimeBloodBLOOD SPECIMEN / UnknownQuest Collect / Kcxbphc2505/20/2025 8:36 AM CST05/20/2025 8:36 AM ART PROFESSOR Narrative Authorizing ProviderResult TypeResult StatusPeter Tal Kaur MDCHEMISTRY Final ResultPerforming OrganizationAddressCity/State/ZIP CodePhone Number [facility]QU[facility]RE[facility] [address] [place] [address], [place] [phone] * ECHO TTE LIMITED WO CONTRAST W COLOR W LTD DOPPLER (05/20/2025 8:26 AM ART PROFESSOR) ComponentValueRef RangeTest MethodAnalysis TimePerformed AtPathologist SignatureAORTIC VALVE MEAN VL5ovLrDAYBDBAJ IRUQTDVK44%PEAK TR VELOCITY2.8m/s LVEDD4.8cmEJECTION ZCOVRDGZ18 - 30%Anatomical RegionLateralityModality UltrasoundSpecimen (Source)Anatomical Location / LateralityCollection Method / VolumeCollection TimeReceived Time05/20/2025 7:52 AM ART PROFESSOR Narrative 05/20/2025 9:03 AM ART PROFESSOR ECHOCARDIOGRAM ANISH COUGHLIN ?Accession#: ?? [id number] : ?1940 85 years Study Date: ?? 05/20/2025 7:52:45 AM Gender: M ? BP: ? 160/75 mmHg Height: 165.00 cm ? BSA: ?1.75 m? Weight: 68.00 kg ?Tech: ? MCG ?Referring MD: BRITTNEY FRANCISCO Site: ? [facility] Reading Location: MOBILE OP Patient Location: Outpatient. Procedure: Limited 2D , Limited Spectral Doppler and Color Doppler. Indication for study: HFrEF Cardiac Rhythm: Regular.Study quality: Excellent. Imaging limitations: This study was subject to imaging limitations due to body habitus. Final Impressions: Limited Echocardiogram performed 1. Normal left ventricular size, normal wall thickness, moderately reduced global systolic function, calculated EF of 32 %. 2. Global hypokinesis with dyssynchrony related to pacing. 3. Right ventricular cavity size is mildly enlarged, global systolic RV function is mildly reduced. 4. Mildly enlarged left atrium. 5. The aortic valve is trileaflet and calcified, moderate LFLG stenosis and mild regurgitation.The aortic valve peak velocity is 2.0 m/s, the peak gradient is 15 mmHg, and the mean gradient is 9 mmHg. The aortic valve area is 1.34 cm? with a dimensionless index of 0.41. The stroke volume index is 27.3 ml/m?. 6. The tricuspid valve is non coapting, severe tricuspid regurgitation. 7. The inferior vena cava is dilated, respiratory size variation less than 50%. Comparison Compared to prior exam of 02/16/2025: indices more in the moderate range today accounting for low SV. Chamber Sizes and Function Normal left ventricular size, normal wall thickness, moderately reduced global systolic function, calculated EF of 32 %. There is severe global left ventricular hypokinesis. Left atrial size is mildly enlarged. Right ventricular cavity size is mildly enlarged, global systolic RV function is mildly reduced. Pacing wire/catheter visualized in the right ventricle and pacing wire/catheter visualized in the right atrium. The right atrium is mildly enlarged. Right atrial volume index is 42 ml/m?. Right atrial area is 24 cm?. The pulmonary artery is of normal size and origin. The sinus of Valsalva is normal sized. Valves, RV Pressures and Diastolic Function The aortic valve is trileaflet and calcified, moderate stenosis and mild regurgitation. The mitral valve is normal in structure, mild mitral regurgitation. Mitral annular calcification is present. The tricuspid valve is fails to coapt, severe tricuspid regurgitation. The tricuspid regurgitant veloci ty is 2.8 m/s, the estimated right ventricular systolic pressure is 30 mmHg plus right atrial pressure. Masses, Effusion, Shunts There is no pericardial effusion. The inferior vena cava is dilated, respiratory size variation less than 50%. MEASUREMENTS AND CALCULATIONS 2-D Measurements and LV Function: LVID (d) ? 4.8 cm ? Planimetered EF 32 % LVID (s) ? 4.1 cm ? LV FS% (2D) ? 15 % IVS (d) ?1.2 cm ? LVOT diameter ?? 2.0 cm LVPW (d) ? 1.4 cm ? HR ?61 bpm Ao Sinus ? 3.0 cm ? LA Vol index ?37 ml/m2 Ao Sinus ULN 4.0 cm * ? RA Vol index ?42 ml/m2 Asc Ao ULN ?? 4.2 cm * ? RA area ? 24 cm? * Input age outside of range, reported values correspond to Age = 81 Aortic Valve: Vmax ? 2.0 m/s ??[place] (V) ?? 1.31 cm? AI P 1/2 341 msec VTI ?0.36 m ?? [place] (I) ?? 1.34 cm? LVOT V max 0.8 m/s ??Max PG ?15 mmHg LVOT VTI ?? 0.15 m ?? Mean PG ?? 9 mmHg SV ? 48 ml ?Dim Index 0.41 SV index ?? 27 ml/m? CO ?2.9 l/min ?CI ?1.7 l/min/m? Tricuspid Valve and estimated PA pressures: TR Vmax 2.8 m/s TAPSE 0.9 cm TR maxG 30 mmHg . This study was interpreted by an [facility] accredited facility. ??Final ?? Procedure Note Jaydon Cochran MD - 05/20/2025 ECHOCARDIOGRAM ANISH COUGHLIN : 1940 85 years Study Date: 05/20/2025 7:52:45 AM Gender: M BP: 160/75 mmHg Height: 165.00 cm BSA: 1.75 m? Weight: 68.00 kg Tech: [facility] MD: BRITTNEY FRANCISCO Site: [facility] Reading Location: MOBILE OP Patient Location: Outpatient. Procedure: Limited 2D , Limited Spectral Doppler and Color Doppler. Indication for study: HFrEF Cardiac Rhythm: Regular.Study quality: Excellent. Imaging limitations: This study was subject to imaging limitations due tobody habitus. Final Impressions: Limited Echocardiogram performed 1. Normal left ventricular size, normal wall thickness, moderatelyreduced global systolic function, calculated EF of 32 %. 2. Global hypokinesis with dyssynchrony related to pacing. 3. Right ventricular cavity size is mildly enlarged, global systolic RVfunction is mildly reduced. 4. Mildly enlarged left atrium. 5. The aortic valve is trileaflet and calcified, moderate LFLG stenosisand mild regurgitation.The aortic valve peak velocity is 2.0 m/s, the peakgradient is 15 mmHg, and the mean gradient is 9 mmHg. The aortic valvearea is 1.34 cm? with a dimensionless index of 0.41. The stroke volumeindex is 27.3 ml/m?. 6. The tricuspid valve is non coapting, severe tricuspid regurgitation. 7. The inferior vena cava is dilated, respiratory size variation lessthan 50%. Comparison Compared to prior exam of 02/16/2025: indices more in the moderate range today accounting for low SV. Chamber Sizes and Function Normal left ventricular size, normal wall thickness, moderately reducedglobal systolic function, calculated EF of 32 %. There is severe globalleft ventricular hypokinesis. Left atrial size is mildly enlarged. Rightventricular cavity size is mildly enlarged, global systolic RV function ismildly reduced. Pacing wire/catheter visualized in the right ventricle andpacing wire/catheter visualized in the right atrium. The right atrium ismildly enlarged. Right atrial volume index is 42 ml/m?. Right atrial areais 24 cm?. The pulmonary artery is of normal size and origin. The sinusof Valsalva is normal sized. Valves, RV Pressures and Diastolic Function The aortic valve is trileaflet and calcified, moderate stenosis and mild regurgitation. The mitral valve is normal in structure, mild mitral regurgitation. Mitral annular calcification is present. The tricuspidvalve is fails to coapt, severe tricuspid regurgitation. The tricuspidregurgitant velocity is 2.8 m/s, the estimated right ventricular systolicpressure is 30 mmHg plus right atrial pressure. Masses, Effusion, Shunts There is no pericardial effusion. The inferior vena cava is dilated,respiratory size variation less than 50%. MEASUREMENTS AND CALCULATIONS 2-D Measurements and LV Function: LVID (d) 4.8 cm Planimetered EF 32% LVID (s) 4.1 cm LV FS% (2D) 15% IVS (d) 1.2 cm LVOT diameter2.0 cm LVPW (d) 1.4 cm HR 61bpm Ao Sinus 3.0 cm LA Vol index 37ml/m2 Ao Sinus ULN 4.0 cm * RA Vol index 42ml/m2 Asc Ao ULN 4.2 cm * RA area 24cm? * Input age outside of range, reported values correspond to Age = 81 Aortic Valve: Vmax 2.0 m/s [place] (V) 1.31 cm? AI P 1/2 341 msec VTI 0.36 m [place] (I) 1.34 cm? LVOT V max 0.8 m/s Max PG 15 mmHg LVOT VTI 0.15 m Mean PG 9 mmHg SV 48 ml Dim Index 0.41 SV index 27 ml/m? CO 2.9 l/min CI 1.7 l/min/m? Tricuspid Valve and estimated PA pressures: TR Vmax 2.8 m/s TAPSE 0.9 cm TR maxG 30 mmHg . This study was interpreted by an [facility] accredited facility. Final Authorizing ProviderResult TypeResult StatusYale Lb CHATMAN ORDFinal Result * (ABNORMAL) PRO-BNP (05/09/2025 11:28 AM ART PROFESSOR)ComponentValueRef RangeTest Method Analysis TimePerformed AtPathologist SignatureNT IGDMBP9138(H)<450 pg/mL 05/10/2025 11:30 AM CSTQUEST DIAGNOSTICSSpecimen (Source)Anatomical Location / LateralityCollection Method / VolumeCollection TimeReceived TimeBloodBLOOD SPECIMEN / UnknownQuest Collect / Qdnnpep7005/09/2025 11:28 AM CST05/09/2025 11:28 AM ART PROFESSOR Narrative Authorizing ProviderResult TypeResult StatusBrittney Lb Nolan MDSEND OUTSFinal ResultPerforming OrganizationAddressCity/State/ZIP CodePhone Number [facility] [address] [place] [address], * EKG - 12 Lead (02/26/2025 2:18 PM CDT)ComponentValueRef RangeTest Method Analysis TimePerformed AtPathologist SignatureInterpretationAV dual-paced rhythm with occasional ventricular-paced complexes and with frequent Premature ventricular complexes Abnormal ECG When compared with ECG of 26-Feb-2025 12:58, Vent. rate has decreased by ??11 bpm BEYOND NOWVentricular Guaz88PMVMMGPKJ NOWAtrial Tkuo08LGFRHLSDF NOWP-R Interval 166msBEYOND NOWQRS Yuyddhvy468ziPVXZHV DKPXY986cjWPLJDK STDGCk973qoOSJUMF NOWP Oieu770qhckqtkMPZYPI NOWR Rbzc286hgmjlcpTGGMTZ NOWT Redkey-64degreesBEYOND NOW Specimen (Source)Anatomical Location / LateralityCollection Method / Volume Collection TimeReceived Time02/26/2025 2:18 PM CDT02/27/2025 10:20 PM CDT Narrative [facility] - 02/27/2025 10:21 PM CDT Test Indication: post-op Authorizing ProviderResult TypeResult Florentino CHURCH ORDFinal ResultPerforming OrganizationAddressCity/State/ZIP CodePhone Number [facility] [place], [place] * EP CARDIOVERSION (02/26/2025 2:15 PM CDT)Anatomical RegionLateralityModalityX- Ray AngiographySpecimen (Source)Anatomical Location / LateralityCollection Method / VolumeCollection TimeReceived Time Narrative 02/26/2025 2:15 PM CDT Marielena Power PA 02/26/2025 2:17 PM [facility] Cardiac Electrophysiology Procedure Note DOS: 02/26/2025 Brief History: ??Anish Coughlin is a pleasant 84 y.o. year old with history of persistent atrial fibrillation who now presents to [facility] N[facility] since midnight for direct current cardioversion. ?? Eliquis 5 mg BID with no missed doses since T[place] on 02/19/25. Procedure Description: ??Time out was called. ??Brief general anesthesia by anesthesia service. ??Cardioversion patches were placed in an anterior/posterior position. ??One 200 joules synchronized shock delivered with successful cardioversion to atrial pacing, BiV pacing. ?? Complications: ??No acute complications. ?? Plan: ?? Anish Coughlin is now recovering from sedation and would anticipate discharge home later today. Dr. Olivo was readily available to provide assistance and direction throughout the time services were performed Marielena Power PA-C [facility] Cardiac Electrophysiology Authorizing ProviderResult TypeResult StatusCharles Howard Olivo [facility] Final Result * ISTAT CHEM 8 (02/26/2025 1:47 PM CDT)ComponentValueRef RangeTest Method Analysis TimePerformed AtPathologist SignatureSODIUM, POCT02/27/2025 8:20 AM [facility]-C[facility]TRAL LABORATORYComment:Unable to determine. POTASSIUM, POCT3.63.5 - 5.0 mmol/L02/27/2025 8:20 AM [facility]AL LABORATORYCHLORIDE, POCT02/27/2025 8:20 AM [facility]-CENTRAL LABORATORYComment:Unable to determine.CO2,TOTAL, POCT 02/27/2025 8:20 AM [facility]-CENTRAL LABORATORYComment: Unable to determine.ANION GAP, POCT02/27/2025 8:20 AM [facility]-CENTRAL LABORATORYComment:Unable to calculate.GLUCOSE, POCT 02/27/2025 8:20 AM [facility]-CENTRAL LABORATORYComment: Unable to determine.IONIZED CALCIUM, POCT02/27/2025 8:20 AM [facility]-CENTRAL LABORATORYComment:Unable to determine.BUN, POCT02/27/2025 8:20 AM [facility]-CENTRAL LABORATORYComment:Unable to determine.CREATININE, POCT02/27/2025 8:20 AM [facility]- CENTRAL LABORATORYComment:Unable to determine.BUN/CREAT RATIO, POCT02/27/2025 8:20 AM [facility]-CENTRAL LABORATORYComment:Unable to calculate.eGFR02/27/2025 8:20 AM [facility] LABORATORYComment:Unable to calculate.HEMATOCRIT, POCT02/27/2025 8:20 AM CDT [facility] LABORATORYComment:Unable to determine. HEMOGLOBIN, POCT02/27/2025 8:20 AM [facility] LABORATORYComment:Unable to determine.Specimen (Source)Anatomical Location / LateralityCollection Method / VolumeCollection TimeReceived TimeBloodBLOOD SPECIMEN / Nrfufvk2702/26/2025 1:47 PM CDT02/27/2025 8:20 AM CDT Narrative Authorizing ProviderResult TypeResult StatusCharjodi Olivo MDCHEMISTRY Final ResultPerforming OrganizationAddressCity/State/ZIP CodePhone Number [facility] [address] [phone], [place] * SCAN-CARDIAC STRIP (02/26/2025 12:00 AM CDT) Narrative 02/26/2025 12:00 AM CDT Ordered by an unspecified provider. Authorizing ProviderResult TypeResult StatusOther Clinical StaffOTHERFinal Result * PLATELET COUNT (02/21/2025 7:50 AM CDT)ComponentValueRef RangeTest Method Analysis TimePerformed AtPathologist SignaturePLATELET [id number] - 440 thou/cu mm02/21/2025 8:25 AM [facility]ORATORYMPV 9.66.5 - 11.0 fL02/21/2025 8:25 AM [facility] LABORATORYSpecimen (Source)Anatomical Location / LateralityCollection Method / VolumeCollection TimeReceived TimeBloodBLOOD SPECIMEN / UnknownVenipuncture / Ebputdu4202/21/2025 7:50 AM CDT02/21/2025 8:15 AM CDT Narrative Authorizing ProviderResult TypeResult StatusCrainaresh Shah MDHEMATOLOGYFinal ResultPerforming OrganizationAddressCity/State/ZIP CodePhone Number [facility] [address] [address], [place] * SCAN-CARDIAC STRIP (02/21/2025 4:39 AM CDT) Narrative Authorizing ProviderResult TypeResult StatusScannerOTHERFinal Result * SCAN-CARDIAC STRIP (02/21/2025 4:39 AM CDT) Narrative Authorizing ProviderResult TypeResult StatusScannerOTHERFinal Result from Last 3 Months Insurance Advance Directives TypeDate RecordedPatient RepresentativeExplanationSelect Medical [facility], Beach[facility]care Directive08/04/2009 HEALTH CARE DIRECTIVE, [facility], 08/04/2009 * Full Code (Latest Code Status on File) Date ActivatedDate InactivatedComments02/26/2025 1:08 PM02/26/2025 5:30 PMQuestion AnswerCommentsCode Status Discussion:* Reviewed Preferences * DNR Date ActivatedDate InactivatedComments02/16/2025 7:32 PM02/21/2025 6:10 PMQuestion AnswerCommentsCode Status Discussion:* Reviewed Preferences * Full Code Date ActivatedDate InactivatedComments11/14/2023 10:52 AM11/14/2023 1:17 PM QuestionAnswerCommentsCode Status Discussion:* Other * Full Code Date ActivatedDate InactivatedComments01/13/2023 4:48 PM01/14/2023 1:17 PMQuestion AnswerCommentsCode Status Discussion:* Other * Full Code Date ActivatedDate InactivatedComments8/02/2022 1:12 PM01/14/2022 2:43 PMQuestion AnswerCommentsCode Status Discussion:* Reviewed Preferences Care Teams Team MemberRelationshipSpecialtyStart DateEnd Monico Modi MD [address] [place] [address] PCP - GeneralFamily Practice11/10/16 Yong Siddiqi MD [address] [place] [address] Escqincppffkbsxc94/16/11 Dillan Eubanks MD [address] [place] [address] Cardiovascular Hyvyugk22/16/11 Nurses, Advanced Heart Failure [address] [place] [address] Advanced Heart Failure/Transplant Card04/02/25 Felipe Kaur MD [address] [address] Cardiovascular Llcehrw98/29/25
[2025-05-23 07:39] VITALS: BP 140/81; PULSE 88; RESP 18; TEMP 36.6; O2SAT 94
--- NOTE | 2025-05-23 08:04 | ED.EPISTAXIS ---
History of Present Illness General Chief Complaint: Epistaxis/Nosebleed Stated Complaint: Nose Bleed Time Seen by Provider: 05/23/25 07:52 History of Present Illness HPI Narrative: Patient is a 85-year-old gentleman who takes Plavix. patient developed epistaxis out of both nostrils morning after blowing his nose. He was in the emergency room 11 days ago with epistaxis which responded to direct pressure. Patient placed a clamp on his nose but is bleeding persisted. Patient otherwise is feeling fine no chest pain no shortness a breath no orthopnea no PND. review of his chart does show that his platelets are typically run 100,000. no other symptoms. Related Data Home Medications ?Medication ?Instructions ?Recorded ?Confirmed carvedilol 12.5 mg tablet 12.5 mg PO BID 03/13/22 05/12/25 clonidine HCl 0.1 mg tablet 0.1 mg PO Q12H PRN 03/13/22 05/12/25 pramipexole 0.5 mg tablet 0.5 mg PO HS 03/13/22 02/15/25 atorvastatin 80 mg tablet 80 mg PO HS 05/29/22 05/12/25 nitroglycerin 0.4 mg sublingual 0.4 mg sublingual Q5M PRN chest 05/29/22 05/12/25 tablet pain omeprazole 40 mg capsule,delayed 40 mg PO DAILY 05/29/22 05/12/25 release magnesium oxide 400 mg (241.3 mg 400 mg PO HS 09/12/23 05/12/25 magnesium) tablet melatonin 3 mg capsule 3 mg PO HS PRN 09/12/23 05/12/25 multivitamin 1 tab PO DAILY 09/12/23 05/12/25 apixaban 5 mg tablet 5 mg PO BID 02/15/25 05/12/25 aspirin 81 mg tablet 81 mg PO DAILY 02/15/25 05/12/25 carvedilol 6.25 mg tablet 6.25 mg PO HS 02/15/25 02/15/25 polyethylene glycol 3350 17 gram 17 g PO DAILY PRN 02/15/25 02/15/25 oral powder packet (Miralax) potassium chloride 10 mEq 10 meq PO DAILY 02/15/25 05/12/25 tablet,extended release simethicone 125 mg capsule (Gas 125 - 250 mg PO QID PRN 02/15/25 02/15/25 Relief (simethicone)) torsemide 20 mg tablet 20 mg PO DAILY 02/15/25 05/12/25 Previous Rx's ?Medication ?Instructions ?Recorded sennosides 8.6 mg capsule (senna) 8.6 mg PO DAILY PRN constipation 09/14/23 #90 caps Allergies Allergy/AdvReac Type Severity Reaction Status Date / Time amitriptyline (From Elavil) Allergy Verified 09/20/23 20:07 amlodipine Allergy low Verified 09/20/23 20:07 pressures ciprofloxacin Allergy severe Verified 09/20/23 20:07 hives citalopram (From Celexa) Allergy Diarrhea Verified 09/20/23 20:07 erythromycin base Allergy Verified 09/20/23 20:07 escitalopram (From Lexapro) Allergy Depression Verified 09/20/23 20:07 ezetimibe (From Zetia) Allergy Nausea Verified 09/20/23 20:07 hydrochlorothiazide Allergy cramps Verified 09/20/23 20:07 lactose Allergy GI upset Verified 09/20/23 20:07 Penicillins Allergy Hives Verified 09/20/23 20:07 rosuvastatin (From Crestor) Allergy Rash Verified 09/20/23 20:07 sulindac Allergy sedation Verified 09/20/23 20:07 co Q10 Allergy myalgia Uncoded 09/12/23 09:20 Review of Systems Status of ROS: Reports: 10 or more systems reviewed and unremarkable except as noted in History and below [facility] Medical History Ascites ?R18.8 - Other ascites (ICD-10) Pulmonary nodule (06/13/12) ?R91.1 - Solitary pulmonary nodule (ICD-10) Neurogenic bladder ?N31.9 - Neuromuscular dysfunction of bladder, unspecified (ICD-10) HFrEF (heart failure with reduced ejection fraction) (06/14/24) ?I50.20 - Unspecified systolic (congestive) heart failure (ICD-10) 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 - Poisoning by other antidysrhythmic drugs, accidental (unintentional), initial encounter (ICD-10) Inguinal hernia of left side without obstruction or gangrene ?K40.90 - Unilateral inguinal hernia, without obstruction or gangrene, not specified as recurrent (ICD-10) BPH (benign prostatic hyperplasia) ?N40.0 - Benign prostatic hyperplasia without lower urinary tract symptoms (ICD-10) Chronic hyponatremia ?E87.1 - Hypo-osmolality and hyponatremia (ICD-10) History of hallucinations ?Z87.898 - Personal history of other specified conditions (ICD-10) GERD (gastroesophageal reflux disease) ?K21.9 - Gastro-esophageal reflux disease without esophagitis (ICD-10) Critical limb ischemia with history of revascularization of same extremity ?I70.229 - Atherosclerosis of [place] arteries of extremities with rest pain, unspecified extremity (ICD-10) ?Z98.890 - Other specified postprocedural states (ICD-10) History of Mobitz type II atrioventricular block ?Z86.79 - Personal history of other diseases of the circulatory system (ICD-10) Non-STEMI (non-ST elevated myocardial infarction) ?I21.4 - Non-ST elevation (NSTEMI) myocardial infarction (ICD-10) Peripheral artery disease ?I73.9 - Peripheral vascular disease, unspecified (ICD-10) Peripheral neuropathy ?G62.9 - Polyneuropathy, unspecified (ICD-10) Coronary artery disease ?I25.10 - Atherosclerotic heart disease of [place] coronary artery without angina pectoris (ICD-10) Lactose intolerance ?E73.9 - Lactose intolerance, unspecified (ICD-10) Mixed hyperlipidemia ?E78.2 - Mixed hyperlipidemia (ICD-10) Carotid artery stenosis ?I65.29 - Occlusion and stenosis of unspecified carotid artery (ICD-10) Chronic kidney disease ?N18.9 - Chronic kidney disease, unspecified (ICD-10) Generalized anxiety disorder ?F41.1 - Generalized anxiety disorder (ICD-10) RLS (restless legs syndrome) ?G25.81 - Restless legs syndrome (ICD-10) Surgical History S/P TURP ?Z90.79 - Acquired absence of other genital organ(s) (ICD-10) S/P rotator cuff repair ?Z98.890 - Other specified postprocedural states (ICD-10) S/P placement of cardiac pacemaker ?Z95.0 - Presence of cardiac pacemaker (ICD-10) History of total hip replacement ?Z96.649 - Presence of unspecified artificial hip joint (ICD-10) History of CEA (carotid endarterectomy) ?Z98.890 - Other specified postprocedural states (ICD-10) S/P femoral-popliteal bypass surgery ?Z95.828 - Presence of other vascular implants and grafts (ICD-10) S/P coronary artery stent placement ?Z95.5 - Presence of coronary angioplasty implant and graft (ICD-10) History of laparoscopic cholecystectomy ?Z90.49 - Acquired absence of other specified parts of digestive tract (ICD-10) S/P CABG x 3 ?Z95.1 - Presence of aortocoronary bypass graft (ICD-10) History of coronary angioplasty ?Z98.61 - Coronary angioplasty status (ICD-10) Social History Narrative: Lives in [place]. Independent. 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 Previous smoker. Quit date 1988. No alcohol use. Retired from [employer]. . Five adult children. DaughterBailey sets up his medications and helps him with appointments. What is your current living situation?: I presently have a place to live Problems where you live: no known problems Problems where you live details: NA In the past 12 months, utilities in danger of being shut off: no In past 12 months, lack of transportation kept you from medical appts, meetings, work, or getting things needed for daily living: no In the past 12 mos, have been you worried that your food would run out before you had money to buy more?: never true In the past 12 mos, the food you bought just didn't last and you didn't have money to buy more?: never true Highest level of school completed/degree received: 12th grade, no diploma Smoking Status: Former smoker How often do you have a drink containing alcohol: never AUDIT-C Alcohol total score: 0 Non-prescribed substance use: denies use Caffeine: Yes (pepsi) How often does anyone, including family, friends and others, physically hurt you: never How often does anyone, including family, friends and others, insult or talk down to you: never How often does anyone, including family, friends and others, threaten you with harm: never How often does anyone, including family, friends and others, scream or curse at you: never service: No Exam Narrative: Exam Narrative: EXAM GENERAL: Patient appears comfortable and well. With the exception that he is having epistaxis bilaterally. EYES: No scleral icterus. ENT: Tympanic membranes and oropharynx normal. THYROID: no thyroid nodules or thyromegaly. LYMPH: No supraclavicular or cervical lymphadenopathy. SKIN: Visible skin seen during exam normal or with benign process only. EXT: No dependent lower extremity pedal edema. HEART: Mildly irregular. LUNGS: Clear to auscultation bilaterally with no crackles or wheezes. ABD: Soft, non tender, non distended. PSYCH: Good eye contact, speech is not pressured. Const: Vital Signs, click to edit/add: Vital Signs - 24 hr 05/23/25 07:39 Temperature 97.8 F Pulse Rate [Right Pulse Oximeter] 88 Respiratory Rate 18 Blood Pressure [Ri ght Upper Arm] 140/81 H Pulse Oximetry 94 Oxygen Delivery Me thod Room Air Course Course ED Course: I did examine the patient and found that he does have epistaxis persisting in both nostrils. I did place Afrin-soaked gauze into both nostrils and we will reassess. Vital Signs Vital signs: Initial Vital Signs Temperature 97.8 F 05/23/25 07:39 Temperature Source Temporal Artery Scan 05/23/25 07:39 Pulse Rate 88 05/23/25 07:39 Respiratory Rate 18 05/23/25 07:39 Blood Pressure 140/81 H 05/23/25 07:39 Blood Pressure Mean 100 05/23/25 07:39 Blood Pressure Position Sitting 05/23/25 07:39 Pulse Oximetry 94 05/23/25 07:39 Oxygen Delivery Method Room Air 05/23/25 07:39 Vital Signs Temperature 97.8 F 05/23/25 07:39 Pulse Rate 88 05/23/25 07:39 Respiratory Rate 18 05/23/25 07:39 Blood Pressure 140/81 H 05/23/25 07:39 Pulse Oximetry 94 05/23/25 07:39 Oxygen Delivery Method Room Air 05/23/25 07:39 Temperature 97.8 F 05/23/25 07:39 Pulse Rate 88 05/23/25 07:39 Respiratory Rate 18 05/23/25 07:39 Blood Pressure 140/81 H 05/23/25 07:39 Pulse Oximetry 94 05/23/25 07:39 Oxygen Delivery Method Room Air 05/23/25 07:39 MDM - Epistaxis MDM Narrative Medical decision making narrative: Patient presents with epistaxis. He does take Plavix and apixaban. I was able to get the bleeding under control with Afrin-soaked cotton balls in each nostril. Eleven leave the packing in until later today which time he can remove the packing and apply pressure. I asked him to ice his nose as well and to follow-up with his primary physician as needed. No return if her bleeding resumes in which case I would recommend CBC electrolytes as well as possible ENT consultation. Discharge Plan Discharge Clinical Impression: Epistaxis Patient Disposition: Home, Self-Care Condition: Stable Instructions: Nosebleed (ED) Additional Instructions: leave packing in until 3:00 p.m. this afternoon ice 20 minutes every 2 hours across the bridge of the nose. Keep head back return if symptoms return Activity Level: No Restrictions Prescriptions: No Action clonidine HCl 0.1 mg tablet 0.1 mg PO Q12H PRN Rx Instructions: for hypertensive urgency, 170/90 or greater - RARE USE carvedilol 12.5 mg tablet 12.5 mg PO BID Rx Instructions: IN THE EVENING TAKE WITH 6.25 MG TAB FOR TOTAL OF 18.75 MG pramipexole 0.5 mg tablet 0.5 mg PO HS atorvastatin 80 mg tablet 80 mg PO HS nitroglycerin 0.4 mg tablet, sublingual 0.4 mg sublingual Q5M PRN (Reason: chest pain) omeprazole 40 mg capsule,delayed release(DR/EC) 40 mg PO DAILY carvedilol 6.25 mg tablet 6.25 mg PO HS Rx Instructions: TAKE WITH EVENING DOSE OF 12.5 MG CARVEDILOL FOR TOTAL OF 18.75 MG potassium chloride 10 mEq tablet extended release 10 meq PO DAILY simethicone [Gas Relief (simethicone)] 125 mg capsule 125 - 250 mg PO QID PRN torsemide 20 mg Tablet 20 mg PO DAILY apixaban 5 mg tablet 5 mg PO BID aspirin 81 mg tablet 81 mg PO DAILY polyethylene glycol 3350 [Miralax] 17 gram powder in packet 17 g PO DAILY PRN magnesium oxide 400 mg (241.3 mg magnesium) tablet 400 mg PO HS melatonin 3 mg capsule 3 mg PO HS PRN multivitamin Tablet 1 tab PO DAILY senna 8.6 mg capsule 8.6 mg PO DAILY PRN (Reason: constipation) Qty: 90 0RF Follow Up/Referrals: Monico Modi MD [Primary Care Provider, Family Practice] Stand Alone Forms: MyHealth Info Instructions
== END 2025-05-23 08:43 | disposition home or self-care (01) ==
PROVIDERS: Emergency Provider Internal Medicine; PCP Family Medicine
DX: R04.0 Epistaxis (principal)
CPT/HCPCS: 99282; 99283